=== PATIENT | female | born 1960 | race Caucasian/White ===

== ENCOUNTER 2020-07-15 01:42 | Day surgery (SDC) | payer BC, SELFPAY ==
[2020-07-09 14:39] VITALS: BMI 23.1
[2020-07-15 12:46] VITALS: BP 134/84; PULSE 84; RESP 16; TEMP 36.9; O2SAT 100
[2020-07-15] MEDS: LACTATED RINGERS 1,000 ML 150 ML IV CONT (12:54)
--- NOTE | 2020-07-15 13:20 | WPDANESEPPF ---
Anes - Initial Pre Proc Eval Procedure: Operation Date: 07/15/20 13:45 Proposed Procedures p Esophagogastroduodenoscopy - Jaylen Ramírez MD Date/Time: 07/15/20 13:20 Surgeon: Jaylen Ramírez MD Pre Op Diagnosis: epigastric pain Patient Data Age: 60 Gender: F Height: 5 ft 7 in Weight: 69.2 kg Last Vital Signs Temp 36.9 C 07/15/20 12:46 Pulse 84 07/15/20 12:46 Resp 16 07/15/20 12:46 BP 134/84 07/15/20 12:46 Pulse Ox 100 07/15/20 12:46 Allergies Allergy/AdvReac Type Severity Reaction Status Date / Time No Known Allergies Allergy Unknown Verified 07/15/20 12:44 Home Medications Medication Instructions Recorded Confirmed Type fluticasone propionate 50 2 spray NASAL DAILY #15.8 ml 11/21/19 07/15/20 Rx mcg/actuation nasal spray,suspension loratadine 10 mg tablet 10 mg PO DAILY #90 tablet 11/21/19 07/15/20 Rx hydrochlorothiazide 12.5 mg tablet 12.5 mg PO DAILY #90 tablet 05/19/20 07/15/20 Rx lisinopril 10 mg tablet 10 mg PO DAILY #90 tablet 05/19/20 07/15/20 Rx famotidine 20 mg tablet 20 mg PO DAILY 07/03/20 07/15/20 History Patient hx anesthesia problems: none Family hx anesthesia problems: none PMFSH Past Medical History Medical History Chicken pox Elevated liver enzymes Mumps Recurrent UTI Vaginal disorder Surgical History Surgical History H/O colectomy History of breast augmentation Family History Family History Father Family history of cardiovascular disease Sibling Carcinoma of colon Hypertension Patient's sister is in good health Patient's brother is in good health Mother Family history of throat cancer Family history of malignant neoplasm Social History Social History Smoking packs per day: 1 Smoking cigarettes per day: 20.0 Years smoked: 18 Smoking pack-years: 18.00 Smoking status: Former smoker Tobacco type: cigarettes Smoking end date: 06/06/90 Alcohol intake: never Substance use: never Substance use type: does not use Living arrangements: with family Spiritual care concerns: No Anes - Eval Final PreProcedure Day of Procedure 07/15/20 13:20 Patient weight: normal Heart: regular rate and rhythm Lungs: clear to auscultation Airway: Mallampati scale class II Neurological: alert and oriented Last oral intake: >/= 8 hours Emergent: no Anesthetic plan: proceed Anesthesia type and monitoring: general GIVS and standard monitoring Informed Consent: The patient's anesthetic plan and its attendant risks and benefits were discussed with the patient/family/POA. Questions were solicited and answers provided to the satisfaction of the patient/family/POA.
--- NOTE | 2020-07-15 13:46 | WPDHPUPDATE1 ---
History and Physical Update Update Date/Time: 07/15/20 13:46 History and Physical has been reviewed, including an updated exam of the patient. There are NO changes in the patient's condition. Risks, benefits, and alternatives have been discussed and questions answered. Patient agrees to proceed with procedure.
[2020-07-15 14:00] VITALS: BP 109/69; PULSE 81; RESP 18; O2SAT 99
[2020-07-15 14:10] VITALS: BP 117/69; PULSE 78; RESP 19; O2SAT 100
[2020-07-15 14:20] VITALS: BP 113/73; PULSE 68; RESP 20; O2SAT 100
== END 2020-07-15 14:57 | disposition home or self-care (01) ==
PROVIDERS: PCP Internal Medicine; Visit Provider Internal Medicine Gastroenterology
PROC: 0DJ08ZZ Inspection of Upper Intestinal Tract, Via Natural or Artificial Opening Endoscopic (ICD-10-PCS; CPT 43235; principal; 2020-07-15 13:45)
DX: R10.13 Epigastric pain (principal); K21.00 Gastro-esophageal reflux disease with esophagitis, without bleeding; K29.50 Unspecified chronic gastritis without bleeding; K44.9 Diaphragmatic hernia without obstruction or gangrene; Z80.0 Family history of malignant neoplasm of digestive organs
CPT/HCPCS: 43239; 87081; 88305; J2704; J7120

== ENCOUNTER 2020-08-06 14:57 | Outpatient (CLI) | payer BC, SELFPAY ==
--- NOTE | ~2020-08-06 | XR_ITS ---
EXAMINATION: XR chest 2V DATE: 08/06/2020 15:16 INDICATION: Midsternal chest pain TECHNIQUE: PA and lateral views of the chest were obtained. COMPARISON: None FINDINGS: The lungs are clear with no focal airspace opacities, pulmonary edema, pleural effusion or pneumothor ax. The cardiomediastinal silhouette is normal. Cholecystectomy clips in right upper quadrant. Bilate ral breast implants. Mild thoracic spondylosis. IMPRESSION: 1. No acute cardiopulmonary disease. Reviewed, dictated and finalized at location [facility]
== END 2020-08-06 14:58 | disposition home or self-care (01) ==
PROVIDERS: PCP Internal Medicine; Visit Provider Clinical Nurse Specialist
DX: R07.89 Other chest pain (principal)
CPT/HCPCS: 71046

== ENCOUNTER 2020-08-12 11:06 | Outpatient (CLI) | payer BC, SELFPAY ==
--- NOTE | 2020-08-12 11:15 | ECHO_ITS ---
Patient Info Name: Katharine Gloria Age: 60 years : 1960 Gender: Female Ht: 66 in Wt: 147 lbs BSA: 1.77 m2 HR: 83 bpm BP: 166 / 84 mmHg Heart Rhythm: Sinus Rhythm Exam Date: 08/12/2020 11:23 AM Exam Location: [facility] Patient Status: Outpatient Admit Date: 08/12/2020 Staff Ordering Physician: Shaina Lazaro Vice President Of Communications: Verito Lemus RDCS Attending Provider: Shaina Lazaro Referring Physician: Tejas BOONE; Exam Type: CA echo doppler color flow Study Info Indications R00.2 - Palpitations Complete two-dimensional, color flow and Doppler transthoracic echocardiogram is performed. Summary 1. Complete two-dimensional, color flow and Doppler transthoracic echocardiogram is performed. 2. Left ventricular chamber dimension is normal. 3. Left ventricular systolic function is normal, estimated at 65-70%. 4. The left ventricular diastolic function is normal. 5. E/e' 9 is minimally elevated. 6. No pulmonary hypertension, estimated pulmonary arterial systolic pressure is 17 mmHg. Left Ventricle E/e' 9 is minimally elevated. Left ventricular chamber dimension is normal. Left ventricular systolic function is normal, estimated at 65-70%. The left ventricular diastolic function is normal. Right Ventricle Right ventricular chamber dimension is normal. Right ventricular systolic function is normal. Left Atria Left atrial chamber dimension is normal. Right Atria Right atrial chamber dimension is normal. Aortic Valve The aortic valve is trileaflet. There is no aortic valve stenosis. There is no aortic valve regurgitation. Pulmonic Valve There is no pulmonic regurgitation. Mitral Valve There is no mitral valve stenosis. There is no mitral valve regurgitation. Tricuspid Valve There is no tricuspid valve regurgitation. No pulmonary hypertension, estimated pulmonary arterial systolic pressure is 17 mmHg. Pericardium/Pleural There is no pericardial effusion. Inferior Vena Cava Normal inferior vena cava with >50% collapse upon inspiration consistent with normal right atrial pressure, 5 mmHg. Aorta The aortic root size at the sinus of Valsalva is normal. Left Ventricular Outflow Tract Name Value Normal LVOT 2D LVOT Diameter 2.3 cm LVOT Doppler LVOT Peak Gradient 3 mmHg LVOT Mean Gradient 1 mmHg LVOT VTI 18 cm LVOT VTI/AV VTI Ratio 0.8 LVOT Stroke Volume 73 ml LVOT CO 12.4 l/min LVOT CI 7.0 l/min/m2 Pulmonic Valve Name Value Normal RVOT Doppler RVOT Peak Gradient 1 mmHg PV Doppler
== END 2020-08-12 11:07 | disposition home or self-care (01) ==
LOC: ANHCARD 11:06
PROVIDERS: Family Provider Internal Medicine; PCP Internal Medicine; Visit Provider Clinical Nurse Specialist
DX: R00.2 Palpitations (principal)
CPT/HCPCS: 93306

== ENCOUNTER 2020-08-16 14:50 | Emergency (ER) | payer BC, SELFPAY ==
--- NOTE | ~2020-08-16 | CT_ITS ---
EXAMINATION: CT abdomen pelvis w con DATE: 08/16/2020 17:17 INDICATION: Epigastric pain TECHNIQUE: Computed tomography (CT) of the abdomen and pelvis was performed with 100 cc Omnipaque 350 intravenous contrast. The dose-length product was 417.01 mGy-cm. Automated exposure control and iter ative reconstruction technique were employed. COMPARISON: CT dated 07/26/2016 FINDINGS: Lung bases are unremarkable. No significant pleural or pericardial effusion. Heart size nor mal. Status post cholecystectomy. Small hiatal hernia. There are breast implants. No significant vascular abnormality. Retroaortic left renal vein. No lymphadenopathy. Subtle subcentimeter hypodensity right hepatic lobe, most likely benign cysts. The spleen, pancreas, adrenal glands and kidneys are unremarkable. Mild lumbar spondylosis most advanced at L5-S1. No acute osseous abnormality. Nonobstructive bowel gas pattern. Colonic diverticulosis without evidence for d iverticulitis. IMPRESSION: 1. No acute abdominal abnormality. 2: Small hiatal hernia. Reviewed, dictated and finalized at location [facility]
[2020-08-16 14:54] VITALS: BP 125/74; PULSE 81; RESP 18; TEMP 36.4; O2SAT 100
[2020-08-16 15:17] LABS: Basophils Percent Auto 0.5 % (0.2-1.2); Eosinophils Percent Auto 0.4 % (0-4.4); Hemoglobin 13.1 g/dL (12.0-15.0); Immature Granulocyte Absolute 0.02 K/mm3 (0.00-0.031); Immature Granulocyte Percent A 0.2 % (0-0.5); Lymphocytes Absolute Auto 1.39 K/mm3 (0.9-3.2); Lymphocytes Percent Auto 17.2 % (18.3-44.2); Mean Corpuscular HGB Conc 34.5 g/dl (32-36); Mean Corpuscular Hemoglobin 28.5 pg (26-34); Mean Corpuscular Volume 82.6 fl (80-100); Mean Platelet Volume 9.5 fl (7.4-10.4); Monocytes Absolute Auto 0.6 K/mm3 (0.1-0.6); Monocytes Percent Auto 7.8 % (2.6-8.5); Neutrophils Percent Auto 73.9 % (45.5-73.1); Platelet Count Result 292 k/mm3 (150-375); Red Cell Distribution Width 12.5 % (11.5-14.5); White Blood Count 8.1 K/mm3 (4.5-10.0)
[2020-08-16 15:20] LABS: Add Urine Microscopic? NO; Appearance Urine Clear (Clear); Bilirubin Urine Negative (Negative); Blood Urine Negative (Negative); Color Urine Yellow (Yellow); Glucose Urine UA Negative (Negative); Ketones Urine Negative (Negative); Leukocyte Esterase Ur Negative LEU/UL (Negative); Nitrate Urine Negative (Negative); Protein Urine Negative (Negative); Specific Grav Ur 1.025 (1.001-1.035); Urobilinogen Urine Negative mg/dL (<2.0)
--- NOTE | 2020-08-16 15:27 | ED.ABDPAIN ---
HPI - Abdominal Pain General Chief Complaint: Back Pain/Injury Stated Complaint: back pain/ abd pain Time Seen by Provider: 08/16/20 15:00 Source: patient Mode of arrival: ambulatory Limitations: no limitations History of Present Illness HPI narrative: This is a 60 year old female that presents to the ER for acute on chronic abdominal pain. Reports she has been having trouble with upper abdominal pain for a couple of months. She recently saw a crime scene examiner and had an upper endoscopy which showed reflux and gastritis. She was started on omeprazole, but thought that that was making her pain worse so stopped this. She has continued to take Pepcid with little relief. Denies fever, chest pain, shortness of breath, vomiting, or dysuria. Related Data Home Medications Medication Instructions Recorded Confirmed famotidine 20 mg tablet 20 mg PO DAILY 07/03/20 07/15/20 Allergies Allergy/AdvReac Type Severity Reaction Status Date / Time No Known Allergies Allergy Unknown Verified 08/16/20 15:09 Review of Systems Review of Systems: Narrative: CONSTITUTIONAL: Denies fever CARDIOVASCULAR: Denies chest pain RESPIRATORY: Denies dyspnea. GASTROINTESTINAL: Reports abdominal pain. Denies nausea, vomiting GENITOURINARY: Denies dysuria All systems reviewed & are unremarkable except as noted in HPI and below PMFSH Past Medical History Medical History Chicken pox Elevated liver enzymes Mumps Recurrent UTI Vaginal disorder Surgical History Surgical History H/O colectomy History of breast augmentation Family History Family History Father Family history of cardiovascular disease Sibling Carcinoma of colon Hypertension Patient's sister is in good health Patient's brother is in good health Mother Family history of throat cancer Family history of malignant neoplasm Social History Social History Smoking packs per day: 1 Smoking cigarettes per day: 20.0 Years smoked: 18 Smoking pack-years: 18.00 Smoking status: Former smoker Tobacco type: cigarettes Smoking end date: 06/06/90 Alcohol intake: never Substance use: never Substance use type: does not use Gender identity (if verbalized by the patient): Female Spiritual care concerns: No Exam Narrative: Exam Narrative: GENERAL: Well-appearing, well-nourished, and in no acute distress. HEAD: Normocephalic, atraumatic. EYES: EOMI. CHEST: Clear to auscultation. No respiratory distress. No wheezes rales or rhonchi HEART: Regular rate and rhythm. No murmur heard. Normal peripheral pulses. ABDOMEN: Soft, nondistended, normal active bowel sounds. Mild tenderness to palpation epigastrium, without guarding EXTREMITIES: Normal range of motion. No edema. SKIN: Warm, dry, no rash. NEURO: No focal deficits. Alert and oriented x3. PSYCH: Normal mood and affect Course Vital Signs Vital signs: Vital Signs Temperature 97.5 F L 08/16/20 14:54 Pulse Rate 81 08/16/20 14:54 Respiratory Rate 18 08/16/20 14:54 Blood Pressure 125/74 08/16/20 14:54 Pulse Oximetry 100 08/16/20 14:54 Temperature 97.5 F L 08/16/20 17:37 Pulse Rate 61 08/16/20 18:17 Respiratory Rate 18 08/16/20 18:17 Blood Pressure 134/69 08/16/20 18:17 Pulse Oximetry 100 08/16/20 18:17 MDM - Abdominal Pain MDM Narrative Medical decision making narrative: Patient presents to the emergency department for acute on chronic abdominal pain. She is afebrile and nontoxic-appearing. Vitals are stable. CBC is without acute findings. Metabolic panel without concerning changes. Lipase is normal. UA without evidence of infection. CT scan abdomen pelvis is also without acute findings. She has a small hiatal hernia. Patient did recently have
[2020-08-16 15:30] LABS: Alanine Aminotransferase 33 U/L (4-35); Albumin Level 4.3 g/dL (3.5-5.1); Alkaline Phosphatase 58 U/L (38-126); Anion Gap 6 mmol/L (8-16); Aspartate Amino Transferase 37 U/L (14-36); Bilirubin,Total 0.6 mg/dL (0.2-1.3); Blood Urea Nitrogen 17 mg/dL (7-17); Calcium 9.5 mg/dL (8.4-10.2); Carbon Dioxide 29 mmol/L (22-30); Chloride 98 mmol/L (98-107); Estimated CRCL calculation 69 ml/min; Estimated Glomerular Filt Rate > 60; Glucose 125 mg/dL (65-105); Lipase 131 U/L (23-300); Potassium 4.1 mmol/L (3.4-5.0); Sodium 133 mmol/L (137-145)
[2020-08-16] MEDS: ONDANSETRON INJ 4 MG/2 ML VIAL IV PUSH (15:30)
[2020-08-16] MEDS: FAMOTIDINE 20 MG/2 ML VIAL IV PUSH (15:31)
[2020-08-16 16:02] VITALS: TEMP 36.4
[2020-08-16] MEDS: BELLADONNA ALK/PHENOB ELIX 10 ML, MAG HYDROX/ALUMINUM HYD/SIMETH 30 ML, LIDOCAINE HCL 2... PO (16:18)
[2020-08-16] MEDS: MORPHINE SULFATE (*CRX) 4 MG/ML INJ IV PUSH (17:07)
[2020-08-16 17:32] VITALS: BP 139/77; PULSE 76; RESP 18; O2SAT 96
[2020-08-16 17:37] VITALS: TEMP 36.4
[2020-08-16 18:17] VITALS: BP 134/69; PULSE 61; RESP 18; O2SAT 100
[2020-08-16] MEDS: SUCRALFATE 1 GM TABLET PO (20:22)
== END 2020-08-16 20:36 | disposition home or self-care (01) ==
PROVIDERS: Emergency Provider Family Medicine; PCP Internal Medicine
DX: K21.9 Gastro-esophageal reflux disease without esophagitis (principal); K21.00 Gastro-esophageal reflux disease with esophagitis, without bleeding; Z87.440 Personal history of urinary (tract) infections; Z90.49 Acquired absence of other specified parts of digestive tract; Z87.891 Personal history of nicotine dependence; K44.9 Diaphragmatic hernia without obstruction or gangrene
CPT/HCPCS: 36415; 74177; 80053; 81003; 83690; 85025; 96374; 96375; 99284; A9270; J0131; J2270; J2405; Q9967

== ENCOUNTER 2024-08-01 15:30 | Emergency (ER) | payer BC, SELFPAY ==
--- NOTE | ~2024-08-01 | CT_ITS ---
EXAMINATION: CTA chest PE protocol DATE: 08/01/2024 19:59 INDICATION: irregular hr, elevated RA pressures TECHNIQUE: Computed tomography angiography (CTA) of the chest was performed with 100 mL Omnipaque-350 intravenous contrast timed to evaluate the pulmonary arteries. Coronal maximum intensity projection 3D-reconstructions were created by the technologist. The dose-length product (DLP) was 189.17 mGy-cm. Automated exposure control and iterative reconstruction technique were employed. COMPARISON: X-ray chest, same date; CT abdomen pelvis 08/16/2020. FINDINGS: Lung parenchyma and airways: Minimal dependent atelectasis/scar. Patent airways. Small right lower lo be air cyst. Pleura: Unremarkable. Thoracic inlet, axillae and chest wall: Bilateral breast implants. Thoracic aorta: No significant dilation. No dissection. Mediastinum: Normal. Heart and pericardium: Normal. Coronary artery calcifications: Mild. Upper abdomen: Status post cholecystectomy, with likely related prominence of the common bile duct. B ilateral renal pelviectasis and caliectasis. Scattered colonic diverticuli. Bones: No acute osseous finding. Pulmonary arteries: Study quality: Adequate. No pulmonary emboli detected. IMPRESSION: No CT evidence of acute pulmonary embolus. No acute process detected in the chest. Bilateral pelviectasis and caliectasis, worse on the right, of uncertain etiology. Reviewed, dictated and finalized at location K. OMER SUPPLY CHAIN ANALYST IMPRESSION: No CT evidence of acute pulmonary embolus. No acute process detected in the chest. Bilateral pelviectasis and caliectasis, worse on the right, of uncertain etiolo gy.
--- NOTE | ~2024-08-01 | XR_ITS ---
EXAMINATION: XR chest 2V DATE: 08/01/2024 16:25 INDICATION: Palpitations. TECHNIQUE: Frontal and lateral views of the chest were obtained. COMPARISON: Chest 2 views 08/06/2020 FINDINGS: There is no pneumonia, pleural effusion, or pneumothorax. The heart size is normal. Breast implants are noted. IMPRESSION: 1. No acute cardiopulmonary disease. Reviewed, dictated and finalized at location A. [facility]
[2024-08-01 15:44] VITALS: BP 156/89; PULSE 123; RESP 18; TEMP 36.4; O2SAT 100
--- NOTE | 2024-08-01 15:48 | ED.ARRPALP ---
HPI - Arrhythmia/Palpitations General Chief Complaint: Arrhythmia/Palpitations <Agata Rankin PA-C - Last Filed: 08/02/24 10:20> Stated Complaint: my HR has spiked super high <Agata Rankin PA-C - Last Filed: 08/02/24 10:20> Time Seen by Provider: 08/01/24 15:48 <Agata Rankin PA-C - Last Filed: 08/02/24 10:20> Focused HPI: This is a 64 year old female that presents to the ER for palpitations. Reports this morning she was doing work at her computer. Reports her heart rate spiked to 150. She was not symptomatic with this. Reports her heart rate has been up and down today. Denies chest pain, shortness of breath. Reports she feels dehydrated. GENERAL: Well-appearing, well-nourished, and in no acute distress. HEAD: Normocephalic, atraumatic. CHEST: Clear to auscultation. ?No respiratory distress. HEART: Regular rate and rhythm.? NEURO: ?Alert and oriented x3. Patient screened in triage and initial orders placed.? ?Additional care and disposition to be based upon?diagnostic testing and treatment. <Agata Rankin PA-C - Last Filed: 08/02/24 10:20> History of Present Illness HPI narrative: Agree with the HPI above. Patient tells me that she has a history of anxiety and depression which is well managed and does not feel like this is related. She is a watch on that tracked her heart rate today and she reached 191 beats per minute but she was asymptomatic but did feel fluttering in her chest. No lightheadedness, syncope, chest pain or pressure. She still felt them occasionally throughout the day but not as high. Presently she is not feeling any symptoms, no chest pain, transfer, shortness of breath, nausea, vomiting, syncope or presyncope feeling. No history of DVT or PE. No recent travel, no recent surgeries. No leg swelling or calf cramping sensations. Previously were Holter monitor 20 years ago. <Shimon Motta MD - Last Filed: 08/01/24 20:54> Related Data Allergies/Adverse Reactions: Allergies Allergy/AdvReac Type Severity Reaction Status Date / Time No Known Allergies Allergy Unknown Verified 08/01/24 15:33 <Agata Rankin PA-C - Last Filed: 08/02/24 10:20> Review of Systems Review of Systems: As reviewed above in HPI <Shimon oMtta MD - Last Filed: 08/01/24 20:54> [facility] Past Medical History Medical History: Medical History LUQ pain Diarrhea Chicken pox Elevated liver enzymes Mumps Recurrent UTI Vaginal disorder <Agata Rankin PA-C - Last Filed: 08/02/24 10:20> Surgical History Surgical History: Surgical History History of cholecystectomy History of breast augmentation <SUNDAR Flores Last Filed: 08/02/24 10:20> Family History Family History: Family History Father Family history of cardiovascular disease Sibling Carcinoma of colon Hypertension Patient's sister is in good health Patient's brother is in good health Mother Family history of throat cancer Family history of malignant neoplasm <Agata Rankin PA-C - Last Filed: 08/02/24 10:20> Social History Social History: Social History Smoking packs per day: 1 Smoking cigarettes per day: 20.0 Years smoked: 18 Smoking pack-years: 18.00 Smoking status: Never smoker Tobacco type: cigarettes Smoking end date: 06/06/90 Alcohol intake: never Substance use: never Substance use type: does not use Lack of Transportation: No Lack of Food: Never True Current Housing: I Have Housing Concerned About Future Housing: No Difficulty Paying Gas/Electric Bills: No Difficulty Paying for Meds: No Currently Unemployed: No Education: High School Diploma/GED Difficulty w/ Childcare or Family Care: No Living arrangements: with family Gender identity (if verbalized by the patient): Female Spiritual care concerns: No <Agata Rankin PA-C - Last Filed: 08/02/24 10:20> Exam Narrative: GENERAL: [Well-appearing, well-nourished, and in no acute distress.] HEAD: [Normocephalic, atraumatic.] EYES: [PERRLA and EOMI.] ENT: Nares clear, no rhinorrhea or epistaxis. Mucous membranes moist. NECK: Supple. CHEST: [Clear to auscultation. No respiratory distress.] HEART: [Regular rate and rhythm]. No murmur heard. [Normal peripheral pulses.] ABDOMEN: [Soft, nondistended], [nontender], [No rigidity or guarding] EXTREMITIES: Normal range of motion. [No edema.] SKIN: Warm, dry, no rash. NEURO: [No focal deficits]. Alert and oriented [x3.] PSYCH: [Normal mood and affect.] <Shimon Motta MD - Last Filed: 08/01/24 20:54> Course Vital Signs Vital signs: Vital Signs Temperature 97.6 F 08/01/24 15:44 Pulse Rate 123 H 08/01/24 15:44 Respiratory Rate 18 08/01/24 15:44 Blood Pressure 156/89 H 08/01/24 15:44 Pulse Oximetry 100 08/01/24 15:44 Oxygen Delivery Room Air 08/01/24 15:44 Temperature 97.6 F 08/01/24 15:44 Pulse Rate 90 08/01/24 20:58 Respiratory Rate 16 08/01/24 20:58 Blood Pressure 132/79 08/01/24 20:58 Pulse Oximetry 99 08/01/24 20:58 Oxygen Delivery Room Air 08/01/24 15:44 <Agata Rankin PA-C - Last Filed: 08/02/24 10:20> Vital Signs Temperature 97.6 F 08/01/24 15:44 Pulse Rate 123 H 08/01/24 15:44 Respiratory Rate 18 08/01/24 15:44 Blood Pressure 156/89 H 08/01/24 15:44 Pulse Oximetry 100 08/01/24 15:44 Oxygen Delivery Room Air 08/01/24 15:44 Temperature 97.6 F 08/01/24 15:44 Pulse Rate 90 08/01/24 20:58 Respiratory Rate 16 08/01/24 20:58 Blood Pressure 132/79 08/01/24 20:58 Pulse Oximetry 99 08/01/24 20:58 Oxygen Delivery Room Air 08/01/24 15:44 <Shimon Motta MD - Last Filed: 08/01/24 20:54> MDM - Arrhythmia/Palpitations MDM Narrative Medical decision making narrative: 64-year-old female with a past medical history including hypertension, anxiety. She presents to the emergency department for rapid heart rate with palpitations sensations. Happened earlier today without any provoking factors, she states she might have not eat and drink and enough throughout the day yesterday and felt she may have been dehydrated but not unusual for her. She said at work and noticed her heart rate was in the 190s. Full palpitations last for several seconds. Self-limited intermittent without any intervention. Occasionally felt palpitations throughout the day. No nauseousness, vomiting, shortness a breath, dizziness, syncope, presyncope, chest pain. Presently asymptomatic. Was tachycardic in triage with a the pulse of 123 but during my examination has normal vital signs, no tachycardia, fever, hypoxia blood pressure concerns. She has strong 2+ symmetric pulses, no swelling or calf sensations of cramping. Suspicion presently is for potential electrolyte disturbances, transient paroxysmal atrial fibrillation or atrial flutter. Low suspicion ventricular dysrhythmia, low suspicion ACS or pulmonary embolism. Workup was ordered including serial troponin, EKG, chest x-ray, CBC, CMP. She will be given a L of fluid. Workup shows no leukocytosis or anemia. She is slightly hypokalemic at 3.1 which could explain her symptoms. She was given potassium 40 mEq p.o.. Normal coagulation panel, otherwise unremarkable electrolytes and normal renal function and hepatic function. Glucose at 1:41 a.m.. Negative troponin. Chest x-ray shows no acute cardiopulmonary process. EKG shows large P-waves consistent with P pulmonale and right atrial pressure enlargement. Patient is nonsmoker, no history of COPD or asthma. Some sinus tachycardia initial EKG which resolved on repeat. No ST segment changes or concerns for acute ischemic event. Given the elevated P wave consistent with potential right atrial pressure enlargement a CT scan with contrast was ordered to evaluate for any pulmonary embolism. CTA shows no pulmonary embolism, no acute process in the chest. Patient is stable hemodynamically, did not have any recurrence of her tachycardia while here in the emergency department. Will have outpatient Holter monitor ordered an outpatient cardiology evaluation follow-up instructions. She was given return precautions and safe for discharge home at this time. <Shimon Motta MD - Last Filed: 08/01/24 20:54> Medical Records Attestation: I reviewed the patient's medical records. <Shimon Motta MD - Last Filed: 08/01/24 20:54> Lab Data Attestation: I reviewed the patient's lab results. <Shimon Motta MD - Last Filed: 08/01/24 20:54> Result diagrams: 08/01/24 16:19 08/01/24 16:19 <Agata Rankin PA-C - Last Filed: 08/02/24 10:20> Labs: Lab Results 08/01/24 Range/Units 16:19 WBC 7.2 (4.5-10.0) K/mm3 RBC 5.78 H (4.2-5.4) M/mm3 Hgb 16.0 H (12.0-15.0) g/dL Hct 46.6 (37.0-47.0) % MCV 80.6 (80-100) fl MCH 27.7 (26-34) pg MCHC 34.3 (32-36) g/dl RDW 13.1 (11.5-14.5) % Plt Count 226 (150-375) k/mm3 MPV 10.6 H (7.4-10.4) fl Immature Gran % (Auto) 0.3 (0-0.5) % Neut % (Auto) 74.7 H (45.5-73.1) % Lymph % (Auto) 15.9 L (18.3-44.2) % [place] % (Auto) 8.0 (2.6-8.5) % Eos % (Auto) 0.4 (0-4.4) % Baso % (Auto) 0.7 (0.2-1.2) % Lymph # (Auto) 1.14 (0.9-3.2) K/mm3 [place] # (Auto) 0.6 (0.1-0.6) K/mm3 Eos # (Auto) 0.0 (0-0.3) K/mm3 Baso # (Auto) 0.1 (0.0-0.1) K/mm3 Abs Immat Gran (auto) 0.02 (0.00-0.031) K/mm3 Absolute Neuts (auto) 5.3 (1.3-6.7) K/mm3 Absolute Nucleated RBC 0.000 (0.0-0.012) K/mm3 Nucleated RBC % 0.0 (0.0-0.2) % PT 12.8 (11.1-14.7) Seconds INR 0.9 APTT 30.1 (22.3-36.8) Seconds Sodium 141 (137-145) mmol/L Potassium 3.1 L (3.4-5.0) mmol/L Chloride 98 (98-107) mmol/L Carbon Dioxide 27 (22-30) mmol/L Anion Gap 16 H (4-12) mmol/L BUN 15 (7-17) mg/dL Creatinine 0.55 L (0.7-1.0) mg/dL Estim Creat Clear Calc 82 ml/min Estimated GFR > 60 (59 - ) Glucose 141 H (65-110) mg/dL Calcium 10.0 (8.4-10.2) mg/dL Total Bilirubin 0.8 (0.2-1.3) mg/dL AST 53 H (14-36) U/L ALT 56 H (6-35) U/L Alkaline Phosphatase 85 (38-126) U/L Troponin I < 0.012 (0.000-0.034) ng/mL Total Protein 9.0 H (6.3-8.2) g/dL Albumin 4.8 (3.5-5.1) g/dL <Agata Rankin PA-C - Last Filed: 08/02/24 10:20> Lab Results 08/01/24 Range/Units 16:19 WBC 7.2 (4.5-10.0) K/mm3 RBC 5.78 H (4.2-5.4) M/mm3 Hgb 16.0 H (12.0-15.0) g/dL Hct 46.6 (37.0-47.0) % MCV 80.6 (80-100) fl MCH 27.7 (26-34) pg MCHC 34.3 (32-36) g/dl RDW 13.1 (11.5-14.5) % Plt Count 226 (150-375) k/mm3 MPV 10.6 H (7.4-10.4) fl Immature Gran % (Auto) 0.3 (0-0.5) % Neut % (Auto) 74.7 H (45.5-73.1) % Lymph % (Auto) 15.9 L (18.3-44.2) % [place] % (Auto) 8.0 (2.6-8.5) % Eos % (Auto) 0.4 (0-4.4) % Baso % (Auto) 0.7 (0.2-1.2) % Lymph # (Auto) 1.14 (0.9-3.2) K/mm3 [place] # (Auto) 0.6 (0.1-0.6) K/mm3 Eos # (Auto) 0.0 (0-0.3) K/mm3 Baso # (Auto) 0.1 (0.0-0.1) K/mm3 Abs Immat Gran (auto) 0.02 (0.00-0.031) K/mm3 Absolute Neuts (auto) 5.3 (1.3-6.7) K/mm3 Absolute Nucleated RBC 0.000 (0.0-0.012) K/mm3 Nucleated RBC % 0.0 (0.0-0.2) % PT 12.8 (11.1-14.7) Seconds INR 0.9 APTT 30.1 (22.3-36.8) Seconds Sodium 141 (137-145) mmol/L Potassium 3.1 L (3.4-5.0) mmol/L Chloride 98 (98-107) mmol/L Carbon Dioxide 27 (22-30) mmol/L Anion Gap 16 H (4-12) mmol/L BUN 15 (7-17) mg/dL Creatinine 0.55 L (0.7-1.0) mg/dL Estim Creat Clear Calc 82 ml/min Estimated GFR > 60 (59 - ) Glucose 141 H (65-110) mg/dL Calcium 10.0 (8.4-10.2) mg/dL Total Bilirubin 0.8 (0.2-1.3) mg/dL AST 53 H (14-36) U/L ALT 56 H (6-35) U/L Alkaline Phosphatase 85 (38-126) U/L Troponin I < 0.012 (0.000-0.034) ng/mL Total Protein 9.0 H (6.3-8.2) g/dL Albumin 4.8 (3.5-5.1) g/dL <Shimon Motta MD - Last Filed: 08/01/24 20:54> Imaging Data Attestation: I personally reviewed and interpreted this imaging study as follows: <Shimon Motta MD - Last Filed: 08/01/24 20:54> My impression: Impressions Chest X-Ray 08/01/24 16:30 IMPRESSION: 1. No acute cardiopulmonary disease. Chest CTA 08/01/24 20:02 IMPRESSION: No CT evidence of acute pulmonary embolus. No acute process detected in the chest. Bilateral pelviectasis and caliectasis, worse on the right, of uncertain etiology. <Shimon Motta MD - Last Filed: 08/01/24 20:54> Critical Care Time Critical Care Time Critical Care Time: No <Agata Rankin PA-C - Last Filed: 08/02/24 10:20> Discharge Plan Discharge Clinical Impression: Heart palpitations, Acute hypokalemia <Agata Rankin PA-C - Last Filed: 08/02/24 10:20> Patient Disposition: Home, Self-Care <Agata Rankin PA-C - Last Filed: 08/02/24 10:20> Condition: Stable <Agata Rankin PA-C - Last Filed: 08/02/24 10:20> Instructions: Antibiotic Form, Heart Palpitations (DC) <Agata Rankin PA-C - Last Filed: 08/02/24 10:20> Additional Instructions: Your cardiac workup here is very reassuring, no ongoing heart damage, CT scan shows no blood clot or any acute findings in her chest or near the heart. You do have some minor electrolyte deficiencies with a potassium of 3.1 which could be causing the palpitations symptoms as well. We will send you home with some potassium supplements and a Holter monitor prescription and Cardiology instructions for follow-up. Return with any persistent, new or worsening symptoms. <Agata Rankin PA-C - Last Filed: 08/02/24 10:20> Patient Language: Irish <Agata Rankin PA-C - Last Filed: 08/02/24 10:20> Prescriptions: New potassium chloride [Klor-Con 10] 10 mEq tablet extended release 10 meq PO DAILY Qty: 14 0RF No Action lansoprazole [Prevacid] 30 mg capsule,delayed release(DR/EC) 30 mg PO BID 30 Days Qty: 60 2RF dicyclomine 20 mg tablet 20 mg PO TID PRN (Reason: abdominal pain) 30 Days Qty: 90 2RF sumatriptan succinate [Imitrex] 25 mg tablet See Rx Instructions PO .COMPLEX Qty: 9 3RF Rx Instructions: take 1 tab at onset of headache; if no relief may repeat 1 tab after at least 2 hrs; max = 4 tabs/24 hr PO amlodipine 5 mg tablet 5 mg PO DAILY Qty: 90 1RF loratadine [Claritin] 10 mg tablet 10 mg PO DAILY Qty: 90 0RF hydrochlorothiazide 25 mg tablet 25 mg PO DAILY Qty: 90 0RF Rx Instructions: LAST REFILL, DUE FOR APPOINTMENT fluticasone propionate 50 mcg/actuation spray,suspension 2 spray NASAL DAILY Qty: 15.8 0RF Rx Instructions: administer into each nostril-NEEDS APPOINTMENT FOR FURTHER REFILLS <Agata Rankin PA-C - Last Filed: 08/02/24 10:20> Other Ambulatory Orders: [place] holter monitor 3-7 day (Routine) Timeframe: 1 Week Location: Determined by Patient Ordered By: Shimon Motta <Agata Rankin PA-C - Last Filed: 08/02/24 10:20> Follow-up/Referrals: Serena Ramos MD [Physician] - 1 Week (Palpitations) David Marmolejo DO [Primary Care Provider] - <Agata Rankin PA-C - Last Filed: 08/02/24 10:20> Time of Disposition: 20:54 <Agata Rankin PA-C - Last Filed: 08/02/24 10:20> 20:54 <Shimon Motta MD - Last Filed: 08/01/24 20:54>
--- NOTE | 2024-08-01 15:51 | ECG_ITS ---
Test Date: 2024-08-01 16:19:09 Measurements Intervals [place] Rate: 106 P: 82 [place]: 148 QRS: 13 QRSD: 93 T: 72 QT: 344 QTc: 459 Interpretive Statements SINUS TACHYCARDIA POSSIBLE LEFT ATRIAL ENLARGEMENT INCOMPLETE RIGHT BUNDLE BRANCH BLOCK CONSIDER ANTERIOR INFARCT, AGE INDETERMINATE BORDERLINE ST-T WAVE ABNORMALITY- DIFFUSE LEADS BASELINE ARTIFACT- II, III, AVL, AVF ABNORMAL ECG No previous ECG available for comparison Electronically Signed On 08-01-2024 19:05:12 FIRESTOPPER INSTALLER by Raman Moon D.O.
[2024-08-01 16:27] LABS: Basophils Absolute Auto 0.1 K/mm3 (0.0-0.1); Basophils Percent Auto 0.7 % (0.2-1.2); Eosinophils Percent Auto 0.4 % (0-4.4); Hematocrit 46.6 % (37.0-47.0); Immature Granulocyte Absolute 0.02 K/mm3 (0.00-0.031); Immature Granulocyte Percent A 0.3 % (0-0.5); Lymphocytes Absolute Auto 1.14 K/mm3 (0.9-3.2); Lymphocytes Percent Auto 15.9 % (18.3-44.2); Mean Corpuscular HGB Conc 34.3 g/dl (32-36); Mean Corpuscular Hemoglobin 27.7 pg (26-34); Mean Corpuscular Volume 80.6 fl (80-100); Mean Platelet Volume 10.6 fl (7.4-10.4); Monocytes Absolute Auto 0.6 K/mm3 (0.1-0.6); Neutrophils Absolute Auto 5.3 K/mm3 (1.3-6.7); Neutrophils Percent Auto 74.7 % (45.5-73.1); Platelet Count Result 226 k/mm3 (150-375); Red Blood Count 5.78 M/mm3 (4.2-5.4); Red Cell Distribution Width 13.1 % (11.5-14.5); White Blood Count 7.2 K/mm3 (4.5-10.0)
--- NOTE | 2024-08-01 16:29 | ECG_ITS ---
Test Date: 2024-08-01 16:34:29 Measurements Intervals [place] Rate: 88 P: 80 CT: 148 QRS: 5 QRSD: 94 T: 67 QT: 373 QTc: 452 Interpretive Statements SINUS RHYTHM BORDERLINE R WAVE PROGRESSION, ANTERIOR LEADS BORDERLINE ST-T WAVE ABNORMALITY- DIFFUSE LEADS BASELINE ARTIFACT- V4-V6 ABNORMAL ECG Compared to ECG 08/01/2024 16:19:09 HEART RATE HAS DECREASED Electronically Signed On 08-01-2024 19:02:14 GYMNASIUM TEACHER by Raman Moon D.O.
[2024-08-01 16:36] LABS: Alanine Aminotransferase 56 U/L (6-35); Albumin Level 4.8 g/dL (3.5-5.1); Alkaline Phosphatase 85 U/L (38-126); Anion Gap 16 mmol/L (4-12); Aspartate Amino Transferase 53 U/L (14-36); Bilirubin,Total 0.8 mg/dL (0.2-1.3); Blood Urea Nitrogen 15 mg/dL (7-17); Carbon Dioxide 27 mmol/L (22-30); Chloride 98 mmol/L (98-107); Estimated CRCL calculation 82 ml/min; Estimated Glomerular Filt Rate > 60; Glucose 141 mg/dL (65-110); Potassium 3.1 mmol/L (3.4-5.0); Sodium 141 mmol/L (137-145)
[2024-08-01 16:41] LABS: INR 0.9; Prothrombin Time 12.8 Seconds (11.1-14.7)
[2024-08-01 16:42] LABS: Partial Thromboplastin Time 30.1 Seconds (22.3-36.8)
--- OUTSIDE RECORDS SUMMARY | 2024-08-01 17:55 | XMS_ITS | Encounter Summary ---
Author Organization 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 Gender Identity Not on file Sexual Orientation Not on file documented as of this encounter Plan of Treatment Not on file documented as of this encounter Procedures Procedure Name Priority Date/Time Associated Diagnosis Comments SCAN - LABS 06/10/2021 documented in this encounter Results * SCAN - LABS (06/10/2021) us Provider Scanning Final Result documented in this encounter Visit Diagnoses Not on filedocumented in this encounter Care Teams Cold Molding Press Operator Relationship Specialty Start Date End Date David Marmolejo DO PCP - General Internal Medicine 01/15/21 documented as of this encounter
--- OUTSIDE RECORDS SUMMARY | 2024-08-01 17:55 | XMS_ITS | CONTINUITY OF CARE DOCUMENT ---
Author Name cecile, cecile Address Unknown Organization [facility] Address [address] [address] [place] [address] Phone [phone] Care Team Providers Care Wireless Telegrapher Name Role Phone Roxanna PORTER, Delvis Unavailable ED RALPH MD Unavailable ED RALPH MD Unavailable [phone] PROBLEMS Condition Status Date Provider Notes CHEST PAIN-TYPE TO BE DETERMINED active Carlos Mcknight MD GERD active Delvis Mcknight MD FAMILY HISTORY OF HEART DISEASE active Seun Mcknight MD HTN BORDERLINE active Delvis Mcknight MD ENCOUNTERS Date Type Provider Location Encounter Diag nosis - In-person encounter Office Visit Delvis Mcknight MD [place] [facility] CHEST PAIN-TYPE TO BE DETERMINEDGERDFAMILY HISTORY OF HEART DISEASEHTN BORDERLINE VITAL SIGNS Date Observation Value Provider Body Mass Index (Ratio) 25.27 kg/m2 Nathan Tenorio blood pressure, diastolic 71 mm[Hg] Moseley blood pressure, systolic 118 mm[Hg] Tera Tenorio pulse rate 61 /min Jose Tenorio oxygen saturation, oximetry 99 % Jose Tenorio respiratory rate E&M 16 /min Jose Tenorio weight E&M 156 [lb_av] Jose Tenorio height E&M 66 [in_i] Jose Tenorio ALLERGIES No Known Drug Allergies HISTORY OF MEDICATION USE Medication Status Instructions Dates Provider Indications Com ments OMEPRAZOLE 20 MG ORAL CAPSULE DELAYED RELEASE active 2 tabs daily 9 Jose Tenorio HYDROCHLOROTHIAZIDE 12.5 MG ORAL TABLET active 1 tab daily 9 Jose Tenorio SOCIAL HISTORY Date Observation Value Provider social history E&M Marital Statu s: L b[place] alone J ob Status: Employed full-time Delvis Mcknight MD social history reviewed E&M reviewed Delvis Mcknight MD exercise type treadmill Jose miranda physical exercise, f requency, days per week 1 /wk Jose Tenorio In the past 3 months , have you been waking up wanting to use drugs? (CAGE substance use question #4) N Jose Tenorio In the past 3 months , have you felt guilty or bad about using drugs? (CAGE substance use question #3) N Jose Tenorio In the past 3 months , has anyone annoyed you by telling you to cut down or stop using drugs? (CAGE substance use question #2) N Jose Tenorio In the past 3 months , have you felt you should cut down or stop using drugs?(CAGE substance use question #1) N Jose Tenorio alcohol use, average drinks per day <1 Jose Tenorio drug use no Delvis Madrigal passive cigarette sm gary exposure yes Jose Tenorio smoking history, tot al pack/year 40 Jose Tenorio smoking, year quit 1992 Jose hooks smoking status former smoker Jose tilley MENTAL STATUS Date Observation Value Provider assessment of judgme nt and insight E&M Alert and oriented to time, place and person. Mood and affect are normal. Delvis Mcknight MD INSURANCE PROVIDERS Payer name Policy type / Coverage type [place] red democrat ID [facility] [id number] TREATMENT PLAN Date Name Performer hsp follow up: H er updated medication list for this problem includes: Hydrochlorothiazide 12.5 Mg Tabs (Hydrochlorothiazide) ..... 1 tab daily Delvis Mcknight MD hsp follow up: H er updated medication list for this problem includes: Omeprazole 20 Mg Cpdr (Omeprazole) ..... 2 tabs daily Delvis Mcknight MD
--- OUTSIDE RECORDS SUMMARY | 2024-08-01 17:55 | XMS_ITS | Referral Summary ---
Author Organization [facility] Address [address] [place] [address] Care Team Providers Care Cement Mason Helper Name Role Phone David Marmolejo DO Primary Care Provider [phone] Allergies No known active allergies Medications lisinopriL (PRINIVIL,ZEST RIL) 10 mg tablet Take 10 mg by mouth daily 11/27/19 21 Active sucralfate (CARAFATE) 1 gram tablet TAKE 1 TABLET BY MOUTH THREE TIMES DAILY FOR GASTROINTESTINAL SPASMS OR CRAMPING 01/16/20 21 Active hydroCHLOROthi azide (HYDRODIURIL) 12.5 mg tablet Take 12.5 mg by mouth daily 11/27/19 21 Active fluticasone propionate (FLONASE) 50 mcg/actuation nasal spray 2 sprays daily 08/20/19 22 Active loratadine (Claritin) 10 mg tablet Take 10 mg by mouth daily Active famotidine (PEPCID) 20 mg tablet Take 20 mg by mouth 2 (two) times a day Activ e Active Problems Problem Noted Date Diagnosed Date Hypertension 09/29/2021 Epigastric pain 09/29/2021 History of cholecystectomy 09/29/2021 Family history of colon cancer 09/29/2021 Social History Tobacco Use Types Packs/Day Years Used Date Smoking Tobacco: Never Comments Unknown Sex and Gender Information Value Date Recorded Sex Assigned at Not on file Legal 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 Gender Identity Not on file Sexual Orientation Not on file Last Filed Vital Signs Vital Sign Reading Time Taken Comments Blood Pressure 145/75 09/29/2021 12:48 PM CDT Pulse 59 09/29/2021 12:48 PM CDT Temperature 36.3 C (97.3 F) 09/29/2021 12:48 PM CDT Respiratory Rate - - Oxygen Saturation - - Inhaled Oxygen Concentration - - Weight 62.7 kg (138 lb 3.2 oz) 09/29/2021 12:48 PM CDT Height - - Body Mass Index - - Plan of Treatment Not on file Insurance [employer] [place] Care Teams Cement Mason Helper Relationship Specialty Start Date End Date David Marmolejo DO PCP - General Internal Medicine 01/15/21
--- OUTSIDE RECORDS SUMMARY | 2024-08-01 17:55 | XMS_ITS | Clinical Summary ---
Author Organization [facility] [employer] Address [address] [place] [address] Care Team Providers Care Trout Farmer Name Role Phone Salvador Ramirez MD Primary Care Provider + [phone] Source Comments [facility],non-owned Affiliates and Associated Physician Practices is amultiple site organization consisting of ambulatory clinics and hospital sitesin [place], [place], [place] and [place]. This disclosure is being madepursuant to the Care Everywhere program and may not contain all information available regarding this patient. Last updated 18.[facility] [employer] Allergies No known active allergies Immunizations Name Administration Dates Next Due INFLUENZA VACCINE, QUADR. (F LUZONE; FLULAVAL; FLUARIX; AFLURIA QUADRIVALENT; 6MO+), 0.5 ML (IIV4) 04/18/2017 Social History Tobacco Use Types Packs/Day Years Used Date Smoking Tobacco: Never Assessed Sex and Gender Information Value Date Recorded Sex Assigned at Not on file Gender Identity Not on file Sexual Orientation Not on file Plan of Treatment Health Maintenance Due Date Last Done Comments COLOGUARD (AGES 45-75) - COL ON CA SCREENING 1960 COLON MONITORING 1960 COLONOSCOPY - COLON CA SCREENING 1960 CT COLONOGRAPHY - COLON CA SCREENING 1960 Colorectal Cancer Screening 1960 FIT - COLON CA SCREENING 1960 FLEX SIG - COLON CA SCREENING 1960 LIPID TESTING 1960 MAMMOGRAM 1960 PAP SMEAR 1960 HIV SCREENING 1975 HEPATITIS C SCREENING 03/06/1978 DTAP/TDAP/TD VACCINES (1 - Tdap) 1979 PNEUMOCOCCAL VACCINE 50+ (1 of 1 - PCV) 2010 ZOSTER VACCINE (1 of 2) 2010 COVID-19 VACCINE (1 - 2023-2 5 season) 2024 INFLUENZA VACCINE (#1) 2024 04/18/2017 DEPRESSION SCREENING 06/06/2024 Respiratory Syncytial Virus (RSV) Vaccine Pt: or over 60 yrs (1 - 1-dose 75+ series) 2035 HEPATITIS B VACCINE Aged Out No longe r eligible based on patient's age to complete this topic HIB VACCINE Aged Out No longer eligi ble based on patient's age to complete this topic HPV VACCINE Aged Out No longer eligi ble based on patient's age to complete this topic MENINGOCOCCAL (Group B) VACCINE Aged Out No longer eligible based on patient's age to complete this topic MENINGOCOCCAL VACCINE Aged Out No vianey jesus eligible based on patient's age to complete this topic PNEUMOCOCCAL VACCINE Aged Out No long er eligible based on patient's age to complete this topic Care Teams Trout Farmer Relationship Specialty Start Date End Date Salvador Ramirez MD [address] [place] [address] PCP - General 07/16/20
--- OUTSIDE RECORDS SUMMARY | 2024-08-01 17:55 | XMS_ITS | Referral Summary ---
Author Organization [facility] [employer] Address [address] [place] [address] Care Team Providers Care Assembly Loader Name Role Phone Salvador Ramirez MD Primary Care Provider + [phone] Source Comments [facility],non-owned Affiliates and Associated Physician Practices is amultiple site organization consisting of ambulatory clinics and hospital sitesin [place], [place], [place] and [place]. This disclosure is being madepursuant to the Care Everywhere program and may not contain all information available regarding this patient. Last updated 18.[facility] [employer] Allergies No known active allergies Immunizations Name [...] Orientation Not on file Plan of Treatment Not on file Care Teams Assembly Loader Relationship Specialty Start Date End Date Salvador Ramirez MD [address] [place] [address] PCP - General 07/16/20
--- OUTSIDE RECORDS SUMMARY | 2024-08-01 17:56 | XMS_ITS | Patient Health Summary ---
Author Organization [facility] Address [address] [place] [address] Care Team Providers Care Roadway Technician Name Role Phone Salvador Ramirez MD Primary Care Provider + [phone] Note from [facility],non-owned Affiliates and Associated Physician Practices is amultiple site organization consisting of ambulatory clinics and hospital sitesin [place], [place], [place] and [place]. This disclosure is being madepursuant to the Care Everywhere program and may not contain all information available regarding this patient. Last updated 18.[facility] Allergies No known active allergies Immunizations * INFLUENZA VACCINE, QUADR. (FLUZONE; FLULAVAL; FLUARIX; AFLURIA QUADRIVALENT; 6MO+), 0.5 ML (IIV4)(Given 04/18/2017) Social History Tobacco Use Types Packs/Day Years Used Date Smoking Tobacco: Never Assessed Sex and Gender Information Value Date Recorded Sex Assigned at Not on file Gender Identity Not on file Sexual Orientation Not on file Care Teams Roadway Technician Relationship Specialty Start Date End Date Salvador Ramirez MD [address] [place] [address] PCP - General 07/16/20
--- OUTSIDE RECORDS SUMMARY | 2024-08-01 17:56 | XMS_ITS | Clinical Summary ---
Author Organization [facility] Address formerly [facility] [place] [address] Care Team Providers Care Head Miller Name Role Phone David Marmolejo DO Primary Care Provider [phone] Allergies No known active allergies Medications lisinopriL [...] 09/29/2021 Family history of colon cancer 09/29/2021 Surgical History Surgery Date Site/Laterality Comments CHOLECYSTECTOMY TRANSUMBILICAL AUGMENTATION MAMMAPLASTY CYSTOSCOPY W/ URETEROSCOPY COLONOSCOPY Medical History Medical History Date Comments Heartburn Hiatal hernia HTN (hypertension) Seasonal allergies Family History Medical History Relation Name Comments Heart attack Father Hypertension Father Cancer Mother Colon cancer Sister Hypertension Sister Relation Name Status Comments Father Mother Sister Social History Tobacco Use Types Packs/Day Years Used Date Smoking Tobacco: Never Comments Unknown Sex and Gender Information Value Date Recorded Sex Assigned at Not on file 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 Gender Identity Not on file Sexual Orientation Not on file Obstetrics History Last Filed Vital Signs Vital Sign Reading [...] Mass Index - - Plan of Treatment Health Maintenance Due Date Last Done Comments Breast Cancer Screening-Mammogram 1960 Cervical Cancer Screening 1960 Colon Cancer Screening-Colonoscopy 1960 Depression Screening 1960 Hepatitis C Screening 1960 DTaP/Tdap/Td Vaccine (1 - Tdap) 1971 Hepatitis B Screening 1978 Regular Well Visit/Exam 18-64 1978 Zoster Vaccine (2 of 3) 10/12/2015 08/17/2015 Covid-19 Vaccine ( season) 2024 03/26/2021, 08/26/2020, 08/05/2020 Influenza Vaccine (#1) 2024 , 02/18/2020, 04/04/2019, Additional history exists Pneumococcal vaccine <65 Aged Out No longer eligible based on patient's age to complete this topic Insurance [place] Care Teams Head Miller Relationship Specialty Start Date End Date David Marmolejo DO PCP - General Internal Medicine 01/15/21
--- OUTSIDE RECORDS SUMMARY | 2024-08-01 17:56 | XMS_ITS | Encounter Summary ---
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 Gender Identity Not on file Sexual Orientation Not on file documented as of this encounter Plan of Treatment Not on file documented as of this encounter Procedures Procedure Name Priority Date/Time Associated Diagnosis Comments SCAN - RADIOLOGY/IMAGING 08/16/2020 documented in this encounter Results * SCAN - RADIOLOGY/IMAGING (08/16/2020) Anatomical Region Laterality Modality Other us Provider Scanning Final Result documented in this encounter Visit Diagnoses Not on filedocumented in this encounter Care Teams Backbreaker Relationship Specialty Start Date End Date David Marmolejo DO PCP - General Internal Medicine 01/15/21 documented as of this encounter
[2024-08-01 18:48] VITALS: BP 128/82; PULSE 89; RESP 20; O2SAT 99
[2024-08-01 18:56] LABS: Troponin I < 0.012 ng/mL (0.000-0.034)
--- OUTSIDE RECORDS SUMMARY | 2024-08-01 19:13 | XMS_ITS | Encounter Summary ---
Author Organization [facility] Address [address] [place] [address] Phone Care Team Providers Care House Carpenter Name Role Phone David Marmolejo DO Primary Care Provider [phone] Encounter Details Date Type Department Care Team (Late st Contact Info) Description 06/10/2021 Orders Only [facility] Scanning, Provider Social History Tobacco Use Types Packs/Day Years Used Date Smoking Tobacco: Never Assessed Comments Unknown Sex and Gender Information Value Date Recorded Sex Assigned at Not on file 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
--- OUTSIDE RECORDS SUMMARY | 2024-08-01 19:13 | XMS_ITS | Referral Summary ---
Author Organization [facility] Address [address] [place] [address] Care Team Providers Care Legal Investigator Name Role Phone David Marmolejo DO Primary Care Provider +1- [phone] Allergies No known active allergies Medications lisinopriL [...] on file Legal Sex Female 8:02 AM NURSE PARALEGAL Gender Identity Not on file Sexual [...] [place] Care Teams Legal Investigator Relationship Specialty Start Date End Date David Marmolejo DO PCP - General Internal Medicine 01/15/21
--- OUTSIDE RECORDS SUMMARY | 2024-08-01 19:13 | XMS_ITS | Clinical Summary ---
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
--- OUTSIDE RECORDS SUMMARY | 2024-08-01 19:13 | XMS_ITS | CONTINUITY OF CARE DOCUMENT ---
Author Name cecile, cecile Address Unknown Organization [facility] Address [address] [place] [address] Phone [phone] Care Team Providers Care Cardroom Plastic Card Grader Name Role Phone Roxanna PORTER, Delvis Unavailable ED RALPH MD Unavailable ED RALPH MD Unavailable [phone] PROBLEMS Condition Status Date Provider Notes CHEST PAIN-TYPE TO BE DETERMINED active Carlos Mcknight MD GERD active Delvis Mcknight MD FAMILY HISTORY OF HEART DISEASE active Seun Mcknight MD HTN BORDERLINE active Delvis Mcknight MD ENCOUNTERS Date Type Provider Location Encounter Diag nosis - In-person encounter Office Visit Delvis Mcknight MD [place] [facility] CHEST PAIN-TYPE TO BE DETERMINEDGERDFAMILY HISTORY [...] 1992 Jose hooks smoking status former smoker Jsoe tilley MENTAL STATUS Date Observation Value Provider assessment of judgme nt and insight E&M Alert and oriented to time, place and person. Mood and affect are normal. Delvis Mcknight MD INSURANCE PROVIDERS Payer name Policy type / Coverage type Russell red alliance party ID [facility] [address] [id number] TREATMENT PLAN Date Name Performer hsp follow up: H er updated medication list for this problem includes: Hydrochlorothiazide 12.5 Mg Tabs (Hydrochlorothiazide) ..... 1 tab daily Delvis Mcknight MD hsp follow up: H er updated medication list for this problem includes: Omeprazole 20 Mg Cpdr (Omeprazole) ..... 2 tabs daily Delvis Mcknight MD
--- OUTSIDE RECORDS SUMMARY | 2024-08-01 19:13 | XMS_ITS | Clinical Summary ---
Author Organization [facility] Address [address] [place] [address] Care Team Providers Care Blacking Wheel Tender Name Role Phone Salvador Ramirez MD Primary Care Provider + [phone] Source Comments [facility],non-owned Affiliates and Associated Physician Practices is amultiple site organization consisting of ambulatory clinics and hospital sitesin [place], [place], [place] and [place]. This disclosure is being madepursuant to the Care Everywhere program and may not contain all information available regarding this patient. Last updated 18.[facility] Allergies No known active allergies Immunizations Name [...] age to complete this topic Care Teams Blacking Wheel Tender Relationship Specialty Start Date End Date Salvador Ramirez MD [address] [place] [address] PCP - General 07/16/20
--- OUTSIDE RECORDS SUMMARY | 2024-08-01 19:13 | XMS_ITS | Encounter Summary ---
Author Organization [facility] Address [address] [place] [address] Phone Care Team Providers Care Early Morning Babysitter Name Role Phone David Marmolejo DO Primary Care Provider +1- [phone] Encounter Details Date Type Department Care Team (Late st Contact Info) Description 08/16/2020 Orders Only [facility] Scanning, Provider Social History Tobacco Use Types Packs/Day Years Used Date Smoking Tobacco: Never Assessed Comments Unknown Sex and Gender Information Value Date Recorded Sex Assigned at Not on file 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
--- OUTSIDE RECORDS SUMMARY | 2024-08-01 19:13 | XMS_ITS | Referral Summary ---
Author Organization [facility] Address [address] [place] [address] Care Team Providers Care Patient Portal Concierge Name Role Phone Salvador Ramirez MD Primary Care Provider + [phone] Source Comments [facility],non-owned Affiliates and Associated Physician Practices is amultiple site organization consisting of ambulatory clinics and hospital sitesin [place], [place], [place] and [place]. This disclosure is being madepursuant to the Care Everywhere program and may not contain all information available regarding this patient. Last updated 18.[facility] Allergies No known active allergies Immunizations Name [...] of Treatment Not on file Care Teams Patient Portal Concierge Relationship Specialty Start Date End Date Salvador Ramirez MD [address] [place] [address] PCP - General 07/16/20
--- OUTSIDE RECORDS SUMMARY | 2024-08-01 19:13 | XMS_ITS | Patient Health Summary ---
Author Organization [facility] Address [address] [place] [address] Care Team Providers Care Administrative Personal Assistant Name Role Phone Salvador Ramirez MD Primary Care Provider + [phone] Note from [facility],non-owned Affiliates and Associated Physician Practices is amultiple site organization consisting of ambulatory clinics and hospital sitesin [place], [place], [place] and [place]. This disclosure is being madepursuant to the Care Everywhere program and may not contain all information available regarding this patient. Last updated 18.[facility] Allergies No known active allergies Immunizations * INFLUENZA VACCINE, QUADR. (FLUZONE; FLULAVAL; FLUARIX; AFLURIA QUADRIVALENT; 6MO+), 0.5 ML (IIV4)(Given 04/18/2017) Social History Tobacco Use Types Packs/Day Years Used Date Smoking Tobacco: Never Assessed Sex and Gender Information Value Date Recorded Sex Assigned at Not on file Gender Identity Not on file Sexual Orientation Not on file Care Teams Administrative Personal Assistant Relationship Specialty Start Date End Date Salvador Ramirez MD [address] [place] [address] PCP - General 07/16/20
[2024-08-01] MEDS: LACTATED RINGERS 1,000 ML 999 ML IV CONT (20:12)
[2024-08-01] MEDS: POTASSIUM CHLORIDE 20 MEQ ER TABLET 40 MEQ PO (20:13)
[2024-08-01 20:15] VITALS: BP 138/83; PULSE 90; RESP 15; O2SAT 100
[2024-08-01 20:58] VITALS: BP 132/79; PULSE 90; RESP 16; O2SAT 99
== END 2024-08-01 21:33 | disposition home or self-care (01) ==
PROVIDERS: Physician Assistant; Emergency Provider Student in an Organized Health Care Education/Training Program; PCP Internal Medicine
DX: R00.2 Palpitations (principal); E87.6 Hypokalemia; I10 Essential (primary) hypertension; F41.9 Anxiety disorder, unspecified; F32.A Depression, unspecified; Z87.891 Personal history of nicotine dependence; Z90.49 Acquired absence of other specified parts of digestive tract; R93.5 Abnormal findings on diagnostic imaging of other abdominal regions, including retroperitoneum; R00.0 Tachycardia, unspecified; I45.10 Unspecified right bundle-branch block; R94.31 Abnormal electrocardiogram [ECG] [EKG]; Z79.899 Other long term (current) drug therapy
CPT/HCPCS: 36415; 71046; 71275; 80053; 84484; 85025; 85610; 85730; 93005; 96360; 99284; A9270; J7120; Q9967

== ENCOUNTER 2024-09-03 14:37 | Outpatient (CLI) | payer BC, SELFPAY ==
--- NOTE | 2024-09-03 14:58 | ECHO_ITS ---
Patient Info Name: Katharine Gloria Age: 64 years : 1960 Gender: Female Ht: 66 in Wt: 140 lbs BSA: 1.72 m2 HR: 72 bpm BP: 130 / 84 mmHg Technical Quality: Good Exam Date: 09/03/2024 3:02 PM Exam Location: Echo Lab Patient Status: Outpatient Admit Date: 09/03/2024 Staff Ordering Physician: Shaina Lazaro Survey Cad Technician: Neha Sommer RDCS Attending Provider: Shaina Lazaro Referring Physician: Tejas BOONE; Exam Type: CA echo doppler color flow Study Info Indications R00.2 - Palpitations Complete two-dimensional, color flow and Doppler transthoracic echocardiogram is performed. Summary 1. Complete two-dimensional, color flow and Doppler transthoracic echocardiogram is performed. 2. Left ventricular chamber dimension is normal. 3. Left ventricular systolic function is normal, estimated at 65-70%. 4. The left ventricular diastolic function is normal. 5. E/e' 7 is not elevated. 6. There is trace tricuspid valve regurgitation. Left Ventricle E/e' 7 is not elevated. Left ventricular chamber dimension is normal. Left ventricular systolic function is normal, estimated at 65-70%. The left ventricular diastolic function is normal. Right Ventricle Right ventricular systolic function is normal and with normal TAPSE 2.3 cm. Right ventricular chamber dimension is normal. Left Atria Left atrial chamber dimension is normal. Right Atria Right atrial chamber dimension is normal. Aortic Valve The aortic valve is trileaflet. There is no aortic valve stenosis. There is no aortic valve regurgitation. Pulmonic Valve There is no pulmonic regurgitation. Mitral Valve There is no mitral valve stenosis. There is no mitral valve regurgitation. Tricuspid Valve RVSP is not calculated due to an inadequate TR jet. There is trace tricuspid valve regurgitation. Pericardium/Pleural There is no pericardial effusion. Inferior Vena Cava Normal inferior vena cava with >50% collapse upon inspiration consistent with normal right atrial pressure, 5 mmHg. Aorta The aortic root size at the sinus of Valsalva is normal. Left Ventricular Outflow Tract Name Value Normal LVOT 2D LVOT Diameter 2.1 cm LVOT Doppler LVOT Peak Gradient 3 mmHg LVOT Mean Gradient 2 mmHg LVOT VTI 19 cm LVOT VTI/AV VTI Ratio 0.8 LVOT Stroke Volume 68 ml LVOT CO 12.9 l/min LVOT CI 7.5 l/min/m2 Pulmonic Valve Name Value Normal PV Doppler PV Peak Gradient 3 mmHg Mitral Valve Name Value Normal MV Doppler MV Decel [place] 415 cm/s2 MV PHT 62 ms MV Area (PHT) 3.5 cm2 4.0-5.0 MV Diastolic Function MV E Peak Velocity 89 cm/s MV A Peak Velocity 60 cm/s MV E/A 1.5 MV Decel Time 214 ms MV Annular TDI MV E/e' (Septal) 9.1 <=8.0 MV E/e' (Lateral) 7.0 <=8.0 MV E/e' (Average) 8.1 Tricuspid Valve Name Value Normal Estimated PAP/RSVP RA Pressure 5 mmHg <=5 Aorta Name Value Normal Ascending Aorta Ao Root Diameter (MM) 3.0 cm Ao Root Diam Index (MM) 1.8 cm/m2 Aortic Valve Name Value Normal AV Doppler AV Peak Velocity 97 cm/s AV Peak Gradient 4 mmHg AV Mean Gradient 3 mmHg AV VTI 24 cm AV Area (Cont Eq VTI) 2.8 cm2 >=3.0 AV Area (Cont Eq Raffy) 3.0 cm2 AV Regurgitation 2D LVOT Area 3.5 cm2 Ventricles Name Value Normal LV Dimensions 2D/MM IVS Diastolic Thickness (2D) 0.8 cm 0.6-1.0 LVID Diastole (2D) 3.8 cm 3.8-5.2 LVIW Diastolic Thickness (2D) 0.7 cm 0.6-0.9 LVID Systole (2D) 2.3 cm 2.2-3.5 LVOT Diameter 2.1 cm LV Mass (2D Cubed) 80.35 g 67.00-162.00 LV Mass Index (2D Cubed) 47 g/m2 43-95 Relative Wall Thickness (2D) 0.39 LV Fractional Shortening/Ejection Fraction 2D/MM LV Fractional Shortening (2D) 39 % 27-45 LV EF (2D Teicholz) 70 % 54-74 LV Diastolic Volume (4C MOD) 71 ml LV EF (4C MOD) 64 % LV Diastolic Volume (2C MOD) 50 ml LV EF (2C MOD) 53 % LV Diastolic Volume (BP MOD) 61 ml 46-106 LV Diastolic Volume Index (BP MOD) 35 ml/m2 29-61 LV Systolic Volume (BP MOD) 26 ml 14-42 LV Systolic Volume Index (BP MOD) 15 ml/m2 8-24 LV EF (BP MOD) 58 % 54-74 LV Diastolic Length (4C) 6.4 cm LV Systolic Length (4C) 5.5 cm LV Stroke Volume (4C MOD) 45 ml Atria Name Value Normal LA Dimensions LA Dimension (MM) 2.9 cm 2.7-3.8 Report Signatures
--- OUTSIDE RECORDS SUMMARY | 2024-09-03 16:08 | XMS_ITS | CONTINUITY OF CARE DOCUMENT ---
Author Name cecile, cecile Address Unknown Organization [facility] Address [address] [place] [address] Phone [phone] Care Team Providers Care Light Rail Train Operator Name Role Phone Roxanna PORTER, Delvis Unavailable ED RALPH MD Unavailable [phone] ED RALPH MD Unavailable [phone] PROBLEMS Condition Status Date Provider Notes CHEST PAIN-TYPE TO BE DETERMINED active Carlos Mcknight MD GERD active Delvis Mcknight MD FAMILY HISTORY OF HEART DISEASE active Seun Mcknight MD HTN BORDERLINE active Delvis Mcknight MD ENCOUNTERS Date Type Provider Location Encounter Diag nosis - In-person encounter Office Visit Delvis Mcknight MD [place] [facility] CHEST PAIN-TYPE TO BE DETERMINEDGERDFAMILY HISTORY OF HEART DISEASEHTN BORDERLINE VITAL SIGNS Date Observation Value Provider Body Mass Index (Ratio) 25.27 kg/m2 Nathan Tenorio blood pressure, diastolic 71 mm[Hg] Msoeley blood pressure, systolic 118 mm[Hg] Tera Tenorio [...] Payer name Policy type / Coverage type [place] red libertarian ID [facility] [id number] TREATMENT PLAN Date Name Performer hsp follow up: H er updated medication list for this problem includes: Hydrochlorothiazide 12.5 Mg Tabs (Hydrochlorothiazide) ..... 1 tab daily Delvis Mcknight MD hsp follow up: H er updated medication list for this problem includes: Omeprazole 20 Mg Cpdr (Omeprazole) ..... 2 tabs daily Delvis Mcknight MD
--- OUTSIDE RECORDS SUMMARY | 2024-09-03 16:08 | XMS_ITS | Clinical Summary ---
Author Organization [facility] Address [address] [place] [address] Care Team Providers Care Molded Rubber Goods Cutter Name Role Phone Salvador Ramirez MD Primary Care Provider + [phone] Source Comments [facility],non-owned Affiliates and Associated Physician Practices is amultiple site organization consisting of ambulatory clinics and hospital sitesin [place], [place], [place] and [place]. This disclosure is being madepursuant to the Care Everywhere program and may not contain all information available regarding this patient. Last updated 18.[facility] Allergies No known active allergies Immunizations Name [...] to complete this topic MENINGOCOCCAL (Group B) VACC INE SHARED DECISION-MAKING Aged Out No longer eligibl e based on patient's age to complete this topic MENINGOCOCCAL GROUPS A/C/Y/W VACCINE Aged Out No longer eligible b ased on patient's age to complete this topic PNEUMOCOCCAL VACCINE Aged Out No long er eligible based on patient's age to complete this topic Care Teams Molded Rubber Goods Cutter Relationship Specialty Start Date End Date Salvador Ramirez MD [address] [place] [address] [facility] - General 07/16/20
--- OUTSIDE RECORDS SUMMARY | 2024-09-03 16:08 | XMS_ITS | Clinical Summary ---
Author Organization [facility] Address [address] [place] [address] Care Team Providers Care Game Preserve Manager Name Role Phone David Marmolejo DO Primary Care Provider +[phone]- [phone] Allergies No known active allergies Medications lisinopriL [...] 09/29/2021 Family history of colon cancer 09/29/2021 Encounters Date Type Department Care Team Description 08/02/2024 2:30 PM ASSOCIATE MANAGER AFFILIATE MARKETING Ancillary Procedure [facility] Cardiology [address] [place] [address] Palpitations from Last 3 Months Surgical History Surgery Date Site/Laterality Comments CHOLECYSTECTOMY [...] on file Legal Sex Female 8:02 AM ASSOCIATE MANAGER AFFILIATE MARKETING Gender Identity Not on file Sexual Orientation [...] on patient's age to complete this topic Procedures Procedure Name Priority Date/Time Associated Diagnosis Comments MCT - MOBILE CARDIAC TELEMETRY EVENT MONITOR Routine 08/02/2024 2:03 PM ASSOCIATE MANAGER AFFILIATE MARKETING Palpitations from Last 3 Months Results * MCT Mobile Cardiac Telemetry Event Monitor (08/02/2024 2:03 PM ASSOCIATE MANAGER AFFILIATE MARKETING) Anatomical Region Laterality Modality Electrocardiogra phy Narrative 08/16/2024 7:53 AM CDT AMBULATORY ACETYLENE TORCH SOLDERER REPORT Patient Name: Katharine Gloria Date of : 1960 Requesting Physician: Shaina Lazaro Date of interpretation: 08/16/24 Type of monitor : 7 day cardiac event monitor Date of the study/Enrollment period: August 02, 2024 till August 08, 2024 Indication: Palpitations Quality of the study: Good Interpretation: Average heart rate was 73 beats per minute with a minimum heart rate 53 beats per minute and maximum heart rate 154 beats per minute. No evidence of atrial fibrillation or significant pauses or blocks. There was a total of 33 PVCs. Was a total of 530 supraventricular ectopic contractions. No evidence of supraventricular tachycardia, ventricular tachycardia. Patient reported symptoms on 2 occasions complaining of heart flutter and 1 episode corresponded to sinus tachycardia at heart rate 154 beats per minute and the other episode corresponded to sinus rhythm. Conclusions: Very rare PVCs and PACs. Overall unremarkable monitor Voice recognition software was used to complete this document, therefore, addressograph operator variances may occur. Beata Parekh MD, [facility] 08/16/24 Procedure Note Beata Parekh MD - 08/16/2024 AMBULATORY ACETYLENE TORCH SOLDERER REPORT Patient Name: Katharine Gloria Date of : 1960 Requesting Physician: Shaina Lazaro Date of interpretation: 08/16/24 Type of monitor : 7 day cardiac event monitor Date of the study/Enrollment period: August 02, 2024 till August Indication: Palpitations Quality of the study: Good Interpretation: Average heart rate was 73 beats per minute with a minimum heart rate 53beats per minute and maximum heart rate 154 beats per minute. No evidenceof atrial fibrillation or significant pauses or blocks. There was a totalof 33 PVCs. Was a total of 530 supraventricular ectopic contractions. Noevidence of supraventricular tachycardia, ventricular tachycardia.Patient reported symptoms on 2 occasions complaining of heart flutter and1 episode corresponded to sinus tachycardia at heart rate 154 beats perminute and the other episode corresponded to sinus rhythm. Conclusions: Very rare PVCs and PACs. Overall unremarkable monitor Voice recognition software was used to complete this document, therefore,addressograph operator variances may occur. Beata Parekh MD, [facility] 08/16/24 Shaina Lazaro PRESSING DEPARTMENT SUPERVISOR CV CARDIAC SERVICES PROCEDUR ES Final Result from Last 3 Months [place] Care Teams Game Preserve Manager Relationship Specialty Start Date End Date David Marmolejo DO PCP - General Internal Medicine 01/15/21
--- OUTSIDE RECORDS SUMMARY | 2024-09-03 16:08 | XMS_ITS | Encounter Summary ---
Author Organization [facility] [employer] [facility] Address [address] [place] [address] Phone Care Team Providers Care Caltrans Equipment Operator Name Role Phone David Marmolejo DO Primary Care Provider +[phone]- [phone] Encounter Details Date Type Department Care Team (Late st Contact Info) Description 08/16/2020 Orders Only [facility] Scanning, Provider Social History Tobacco Use Types Packs/Day Years Used Date Smoking Tobacco: Never Assessed Comments Unknown Sex and Gender Information Value Date Recorded Sex Assigned at Not on file Legal Sex Female 8:02 AM SANITARY AIDE Gender Identity Not on file Sexual Orientation [...] on filedocumented in this encounter Care Teams Caltrans Equipment Operator Relationship Specialty Start Date End Date David Marmolejo DO PCP - General Internal Medicine 01/15/21 documented as of this encounter
--- OUTSIDE RECORDS SUMMARY | 2024-09-03 16:08 | XMS_ITS | Referral Summary ---
Author Organization [facility] Address [address] [place] [address] Care Team Providers Care Clinical Data Analyst Name Role Phone David Marmolejo DO Primary Care Provider +1- [phone] Encounters Date Type Department Care Team Description 08/02/2024 2:30 PM NUTRITION COORDINATOR Ancillary Procedure [facility] Cardiology [address] [place] [address] Palpitations from Last 3 Months Allergies No known active allergies Medications lisinopriL [...] on file Legal Sex Female 8:02 AM NUTRITION COORDINATOR Gender Identity Not on file Sexual Orientation [...] - Plan of Treatment Not on file Procedures Procedure Name Priority Date/Time Associated Diagnosis Comments MCT - MOBILE CARDIAC TELEMETRY EVENT MONITOR Routine 08/02/2024 2:03 PM NUTRITION COORDINATOR Palpitations from Last 3 Months Results * MCT Mobile Cardiac Telemetry Event Monitor (08/02/2024 2:03 PM NUTRITION COORDINATOR) Anatomical Region Laterality Modality Electrocardiogra phy Narrative 08/16/2024 7:53 AM CDT AMBULATORY VEGETABLE FARMER REPORT Patient Name: Katharine Gloria Date of [...] was used to complete this document, therefore, acupuncture physician variances may occur. Beata Parekh MD, [facility] 08/16/24 Procedure Note Beata Parekh MD - 08/16/2024 AMBULATORY VEGETABLE FARMER REPORT Patient Name: Katharine Gloria Date of [...] software was used to complete this document, therefore,acupuncture physician variances may occur. Beata Parekh MD, [facility] 08/16/24 Shaina Lazaro ALARM SECURITY OR SURVEILLANCE MONITOR CV CARDIAC SERVICES PROCEDUR ES Final Result from Last 3 Months Insurance CHOICE [facility] [place] Care Teams Clinical Data Analyst Relationship Specialty Start Date End Date David Marmolejo DO PCP - General Internal Medicine 01/15/21
--- OUTSIDE RECORDS SUMMARY | 2024-09-03 16:08 | XMS_ITS | Encounter Summary ---
Author Organization [facility] [employer] [facility] Address [address] [place] [address] Phone Care Team Providers Care Textile Pin Worker Name Role Phone David Marmolejo DO Primary Care Provider +1- [phone] Encounter Details Date Type Department Care Team (Late st Contact Info) Description 06/10/2021 Orders Only [facility] Scanning, Provider Social History Tobacco Use Types Packs/Day Years Used Date Smoking Tobacco: Never Assessed Comments Unknown Sex and Gender Information Value Date Recorded Sex Assigned at Not on file Legal Sex Female 8:02 AM LICENSED CLINICAL PSYCHOLOGIST Gender Identity Not on file Sexual Orientation [...] on filedocumented in this encounter Care Teams Textile Pin Worker Relationship Specialty Start Date End Date David Marmolejo DO PCP - General Internal Medicine 01/15/21 documented as of this encounter
== END 2024-09-03 14:38 | disposition home or self-care (01) ==
PROVIDERS: Visit Provider Clinical Nurse Specialist
DX: R00.2 Palpitations (principal); R06.02 Shortness of breath
CPT/HCPCS: 93306

== ENCOUNTER 2024-11-02 12:31 | Emergency (ER) | payer BC, SELFPAY ==
--- NOTE | ~2024-11-02 | CT_ITS ---
CLINICAL INDICATION: Epigastric pain COMPARISON: 08/16/2020 and 07/26/2016. TECHNIQUE: Multiple contiguous axial images of the abdomen and pelvis were performed following the ad ministration of with 100 mL Omnipaque-350 intravenous contrast The dose-length product (DLP) was 363.27 mGy-cm. Automated exposure control and iterative reconstruction technique were employed. FINDINGS/OBSERVATIONS: Visualized lower thorax: The bilateral lung bases are clear. The heart is of normal size, without pericardial effusion. Small hiatal hernia is present. Liver: The liver demonstrates homogeneous enhancement and is not enlarged. Gallbladder and biliary system: The gallbladder is surgically absent Pancreas: The pancreas enhances homogeneously without ductal dilatation. Spleen: The spleen enhances homogeneously and is not enlarged. Kidneys: Mild right-sided hydronephrosis likely secondary to chronic UPJ obstruction. No significant hydroureter is present. The left kidney and ureter are unremarkable. Adrenal glands: Unremarkable. Gastrointestinal tract: Colonic diverticulosis without surrounding inflammatory change. Multiple loops of dilated fluid-filled small bowel are present with mural thickening and air-fluid le vels. Within the mesentery is a multilobulated spiculated mass with dense calcifications. This is increased from previous examination dated 08/16/2020. At that time, this area appeared as prominent lymph nodes only. This appearance is worrisome for smal l bowel carcinoid tumor, leading to small bowel obstruction. This finding is best visualized on axial series, images 100 through 121. Appendix: The appendix is not definitively visualized. However, no pericecal inflammatory change is identified suggest the presence of acute appendicitis. Vasculature: Unremarkable. Lymph nodes: Pathologically enlarged and morphologically suspicious lymph nodes are identified within the retroper itoneum, but more prominent at the root of the mesentery. The largest lymph node measures 20 x 12 mm and is visualized on axial series image 92. Pelvic structures: The bladder is distended, and otherwise unremarkable. The uterus is anteverted and anteflexed. Bulky calcification persists within the right ovary, unchang ed from prior. Free fluid is identified within the pelvis, likely secondary to small bowel obstruction. Body wall and musculoskeletal: Small fat-containing umbilical hernia. Degenerative disease is identified within the lumbosacral spine, most prominent at the level of L5/S1 with osteophyte formation and disc space narrowing. IMPRESSION: Findings consistent with a small bowel obstruction, and additional findings worrisome for carcinoid t umor either primary peritoneal or within the small bowel with extension into the peritoneum, as carissa led above. These findings were discussed with Dr. Weiss at the time of examination and interpretation Reviewed, dictated and finalized at location A. IMPRESSION: Findings consistent with a small bowel obstruction, and additional findings wor risome for carcinoid tumor either primary peritoneal or within the small bowel with extension into the peritoneum, as detailed above. These findings were discussed with Dr. Weiss at the time of examination and inte rpretation
--- OUTSIDE RECORDS SUMMARY | 2024-11-02 12:33 | XMS_ITS | Referral Summary ---
Author Organization [facility] Address [address] [place] [address] Care Team Providers Care Rat Culturist Name Role Phone David Marmolejo DO Primary Care Provider +1- [phone] Allergies No known active allergies Medications lisinopriL [...] on file Legal Sex Female 8:02 AM PURIFICATION SUPERVISOR Gender Identity Not on file Sexual Orientation [...] file [place] Care Teams Rat Culturist Relationship Specialty Start Date End Date David Marmolejo DO PCP - General Internal Medicine 01/15/21
--- OUTSIDE RECORDS SUMMARY | 2024-11-02 12:33 | XMS_ITS | Clinical Summary ---
Author Organization [facility] Address [address] [place] [address] Care Team Providers Care Adobe Flex Developer Name Role Phone David Marmolejo DO Primary Care Provider +1- [phone] Allergies No known active allergies Medications lisinopriL [...] on file Legal Sex Female 8:02 AM VP MARKETING Gender Identity Not on file Sexual [...] season) 2024 03/26/2021, 08/26/2020, 08/05/2020 Influenza Vaccine (Season Ended) 2025 03/12/2021, 02/18/2020, 04/04/2019, Additional history exists Pneumococcal vaccine <65 Aged Out No longer eligible based on patient's age to complete this topic [place] Care Teams Adobe Flex Developer Relationship Specialty Start Date End Date David Marmolejo DO PCP - General Internal Medicine 01/15/21
--- OUTSIDE RECORDS SUMMARY | 2024-11-02 12:33 | XMS_ITS | Clinical Summary ---
Author Organization [facility] [employer] Address [address] [place] [address] Care Team Providers Care Mercerizing Range Feeder Name Role Phone Salvador Ramirez MD Primary Care Provider + [phone] Source Comments [facility],non-owned Affiliates and Associated Physician Practices is amultiple site organization consisting of ambulatory clinics and hospital sitesin [place], [place], [place] and [place]. This disclosure is being madepursuant to the Care Everywhere program and may not contain all information available regarding this patient. Last updated 18.[facility] [employer] Allergies No known active allergies Immunizations Immunization Administration Dates Next Due INFLUENZA VACCINE, QUADR. (F LUZONE; FLULAVAL; FLUARIX; AFLURIA QUADRIVALENT; 6MO+), 0.5 ML (IIV4) 04/18/2017 Social History Tobacco Use Types Packs/Day Years Used Date Smoking Tobacco: Never Assessed Comments Unknown Sex and Gender Information Value Date Recorded Sex Assigned at Not on file Legal Sex Female 1:13 PM INSTRUMENT MAKER APPRENTICE Gender Identity Not on file Sexual [...] SCREENING 1960 LIPID TESTING 1960 MAMMOGRAM 1960 HIV SCREENING 1975 HEPATITIS C SCREENING 03/06/1978 DTAP/TDAP/TD VACCINES (1 - Tdap) 1979 PNEUMOCOCCAL VACCINE 50+ (1 of 1 - PCV) 2010 ZOSTER VACCINE (1 of 2) 2010 COVID-19 VACCINE (1 - 2023-2 5 season) 2024 DEPRESSION SCREENING 06/06/2024 INFLUENZA VACCINE (Season Ended) 2025 04/18/20 17 Respiratory Syncytial Virus (RSV) Vaccine Pt: or [...] patient's age to complete this topic Insurance [facility] Care Teams Mercerizing Range Feeder Relationship Specialty Start Date End Date Salvador Ramirez MD [address] [place] [address] PCP - General 07/16/20
--- OUTSIDE RECORDS SUMMARY | 2024-11-02 12:33 | XMS_ITS | CONTINUITY OF CARE DOCUMENT ---
Author Name cecile, cecile Address Unknown Organization [facility] Address [address] [place] [address] Phone [phone] Care Team Providers Care Medical Office Asst Name Role Phone Roxanna PORTER, Delvis Unavailable [phone] ED RALPH MD Unavailable [phone] ED RALPH MD Unavailable [phone] PROBLEMS Condition Status Date Provider Notes CHEST PAIN-TYPE TO BE DETERMINED active Carlos Mcknight MD GERD active Delvis Mcknight MD FAMILY HISTORY OF HEART DISEASE active Seun Mcknight MD HTN BORDERLINE active Delvis Mcknight MD ENCOUNTERS Date Type Provider Location Encounter Diag nosis - In-person encounter Office Visit Delvis Mcknight MD [place] Office CHEST PAIN-TYPE TO BE DETERMINEDGERDFAMILY HISTORY OF HEART DISEASEHTN BORDERLINE VITAL SIGNS Date Observation Value Provider Body Mass Index (Ratio) 25.27 kg/m2 Nathna Tenorio blood pressure, diastolic 71 mm[Hg] Moseley [...] Payer name Policy type / Coverage type [place] red alliance party ID [facility] [id number] TREATMENT PLAN Date Name Performer hsp follow up: H er updated medication list for this problem includes: Hydrochlorothiazide 12.5 Mg Tabs (Hydrochlorothiazide) ..... 1 tab daily Delvis Mcknight MD hsp follow up: H er updated medication list for this problem includes: Omeprazole 20 Mg Cpdr (Omeprazole) ..... 2 tabs daily Delvis Mcknight MD
--- OUTSIDE RECORDS SUMMARY | 2024-11-02 12:33 | XMS_ITS | Encounter Summary ---
Author Organization [facility] [employer] [facility] Address [address] [place] [address] Phone Care Team Providers Care Frame Feeder Name Role Phone David Marmolejo DO Primary Care Provider [phone]- [phone] Encounter Details Date Type Department Care Team (Late st Contact Info) Description 08/16/2020 Orders Only [facility] Scanning, Provider Social History Tobacco Use Types Packs/Day Years Used Date Smoking Tobacco: Never Assessed Comments Unknown Sex and Gender Information Value Date Recorded Sex Assigned at Not on file Legal Sex Female 8:02 AM CLEARANCE CENTER MANAGER Gender Identity Not on file Sexual Orientation [...] on filedocumented in this encounter Care Teams Frame Feeder Relationship Specialty Start Date End Date David Marmolejo DO PCP - General Internal Medicine 01/15/21 documented as of this encounter
--- OUTSIDE RECORDS SUMMARY | 2024-11-02 12:33 | XMS_ITS | Encounter Summary ---
Author Organization [facility] [employer] [facility] Address [address] [place] [address] Phone Care Team Providers Care Temple Meat Cutter Name Role Phone David Marmolejo DO Primary Care Provider [phone]- [phone] Encounter Details Date Type Department Care Team (Late st Contact Info) Description 06/10/2021 Orders Only [facility] Scanning, Provider Social History Tobacco Use Types Packs/Day Years Used Date Smoking Tobacco: Never Assessed Comments Unknown Sex and Gender Information Value Date Recorded Sex Assigned at Not on file Legal Sex Female 8:02 AM BUCKLE AND BUTTON MAKER Gender Identity Not on file Sexual Orientation [...] on filedocumented in this encounter Care Teams Temple Meat Cutter Relationship Specialty Start Date End Date David Marmolejo DO PCP - General Internal Medicine 01/15/21 documented as of this encounter
[2024-11-02 12:36] VITALS: BP 140/99; PULSE 104; RESP 16; TEMP 36.4; O2SAT 98
[2024-11-02 13:54] LABS: Basophils Absolute Auto 0.1 K/mm3 (0.0-0.1); Basophils Percent Auto 0.6 % (0.2-1.2); Eosinophils Percent Auto 0.1 % (0-4.4); Hematocrit 50.1 % (37.0-47.0); Hemoglobin 16.9 g/dL (12.0-15.0); Immature Granulocyte Absolute 0.02 K/mm3 (0.00-0.031); Immature Granulocyte Percent A 0.2 % (0-0.5); Lymphocytes Absolute Auto 1.05 K/mm3 (0.9-3.2); Lymphocytes Percent Auto 10.5 % (18.3-44.2); Mean Corpuscular HGB Conc 33.7 g/dl (32-36); Mean Corpuscular Hemoglobin 26.9 pg (26-34); Mean Corpuscular Volume 79.7 fl (80-100); Mean Platelet Volume 10.4 fl (7.4-10.4); Monocytes Absolute Auto 0.5 K/mm3 (0.1-0.6); Monocytes Percent Auto 5.1 % (2.6-8.5); Neutrophils Absolute Auto 8.3 K/mm3 (1.3-6.7); Neutrophils Percent Auto 83.5 % (45.5-73.1); Platelet Count Result 323 k/mm3 (150-375); Red Blood Count 6.29 M/mm3 (4.2-5.4); Red Cell Distribution Width 13.1 % (11.5-14.5)
[2024-11-02 14:02] LABS: Alanine Aminotransferase 83 U/L (6-35); Albumin Level 5.4 g/dL (3.5-5.1); Alkaline Phosphatase 77 U/L (38-126); Anion Gap 15 mmol/L (4-12); Aspartate Amino Transferase 81 U/L (14-36); Bilirubin,Total 0.9 mg/dL (0.2-1.3); Blood Urea Nitrogen 11 mg/dL (7-17); Calcium 10.1 mg/dL (8.4-10.2); Carbon Dioxide 28 mmol/L (22-30); Chloride 94 mmol/L (98-107); Estimated CRCL calculation 71 ml/min; Estimated Glomerular Filt Rate > 60; Glucose 127 mg/dL (65-110); Lipase 103 U/L (23-300); Potassium 3.3 mmol/L (3.4-5.0); Sodium 137 mmol/L (137-145)
--- OUTSIDE RECORDS SUMMARY | 2024-11-02 14:21 | XMS_ITS | Clinical Summary ---
Author Organization [facility] [employer] Address [address] [place] [address] Care Team Providers Care Inspector Paper Products Name Role Phone Salvador Ramirez MD Primary Care Provider + [phone] Source Comments [facility],non-owned Affiliates and Associated Physician Practices is amultiple site organization consisting of ambulatory clinics and hospital sitesin [place], [place], [place] and [place]. This disclosure is being madepursuant to the Care Everywhere program and may not contain all information available regarding this patient. Last updated 18.[facility] [employer] Allergies No known active allergies Immunizations Immunization Administration Dates Next Due INFLUENZA VACCINE, QUADR. (F LUZONE; FLULAVAL; FLUARIX; AFLURIA QUADRIVALENT; 6MO+), 0.5 ML (IIV4) 04/18/2017 Social History Tobacco Use Types Packs/Day Years Used Date Smoking Tobacco: Never Assessed Comments Unknown Sex and Gender Information Value Date Recorded Sex Assigned at Not on file Legal Sex Female 1:13 PM DIVISION ORDER ANALYST Gender Identity Not on file Sexual Orientation [...] age to complete this topic Insurance [facility] Care Teams Inspector Paper Products Relationship Specialty Start Date End Date Salvador Ramirez MD [address] [place] [address] PCP - General 07/16/20
--- OUTSIDE RECORDS SUMMARY | 2024-11-02 14:21 | XMS_ITS | Referral Summary ---
Author Organization [facility] Address [address] [place] [address] Care Team Providers Care Marketing/Sales Person Name Role Phone David Marmolejo DO Primary Care Provider +1- [phone] Allergies No known active allergies Medications lisinopriL [...] on file Legal Sex Female 8:02 AM GREASE MONKEY Gender Identity Not on file Sexual Orientation [...] [place] Care Teams Marketing/Sales Person Relationship Specialty Start Date End Date David Marmolejo DO PCP - General Internal Medicine 01/15/21
--- OUTSIDE RECORDS SUMMARY | 2024-11-02 14:21 | XMS_ITS | Encounter Summary ---
Author Organization [facility] [employer] [facility] Address [address] [place] [address] Phone Care Team Providers Care Cable Strander Name Role Phone David Marmolejo DO Primary Care Provider +1- [phone] Encounter Details Date Type Department Care Team (Late st Contact Info) Description 06/10/2021 Orders Only [facility] Scanning, Provider Social History Tobacco Use Types Packs/Day Years Used Date Smoking Tobacco: Never Assessed Comments Unknown Sex and Gender Information Value Date Recorded Sex Assigned at Not on file Legal Sex Female 8:02 AM CAP MACHINE OPERATOR Gender Identity Not on file Sexual Orientation [...] on filedocumented in this encounter Care Teams Cable Strander Relationship Specialty Start Date End Date David Marmolejo DO PCP - General Internal Medicine 01/15/21 documented as of this encounter
--- OUTSIDE RECORDS SUMMARY | 2024-11-02 14:21 | XMS_ITS | CONTINUITY OF CARE DOCUMENT ---
Author Name cecile, cecile Address Unknown Organization [facility] Address [address] [place] [address] Phone [phone] Care Team Providers Care Remnants Cutter Name Role Phone Roxanna PORTER, Delvis Unavailable [phone] ED RALPH MD Unavailable ED RALPH MD Unavailable [phone] PROBLEMS Condition Status Date Provider Notes CHEST PAIN-TYPE TO BE DETERMINED active Carlos Mcknight MD GERD active Delvis Mcknight MD FAMILY HISTORY OF HEART DISEASE active Seun Mcknight MD HTN BORDERLINE active Delvis Mcknight MD ENCOUNTERS Date Type Provider Location Encounter Diag nosis - In-person encounter Office Visit Delvis Mcknight MD [place] Office CHEST PAIN-TYPE TO BE DETERMINEDGERDFAMILY HISTORY [...] Payer name Policy type / Coverage type [place] red democrat ID [facility] [id number] TREATMENT PLAN Date Name Performer hsp follow up: H er updated medication list for this problem includes: Hydrochlorothiazide 12.5 Mg Tabs (Hydrochlorothiazide) ..... 1 tab daily Delvis Mcknight MD hsp follow up: H er updated medication list for this problem includes: Omeprazole 20 Mg Cpdr (Omeprazole) ..... 2 tabs daily Delvis Mcknight MD
--- OUTSIDE RECORDS SUMMARY | 2024-11-02 14:22 | XMS_ITS | Encounter Summary ---
Author Organization [facility] [employer] [facility] Address [address] [place] [address] Phone Care Team Providers Care Collar Pointer Name Role Phone David Marmolejo DO Primary Care Provider +1- [phone] Encounter Details Date Type Department Care Team (Late st Contact Info) Description 08/16/2020 Orders Only [facility] Scanning, Provider Social History Tobacco Use Types Packs/Day Years Used Date Smoking Tobacco: Never Assessed Comments Unknown Sex and Gender Information Value Date Recorded Sex Assigned at Not on file Legal Sex Female 8: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
--- OUTSIDE RECORDS SUMMARY | 2024-11-02 14:22 | XMS_ITS | Clinical Summary ---
Author Organization [facility] Address [address] [place] [address] Care Team Providers Care Box Turner Name Role Phone David Marmolejo DO Primary Care Provider +1- [phone] Allergies No known active allergies Medications lisinopriL [...] on file Legal Sex Female 8:02 AM COMPUTER SYSTEMS HARDWARE ANALYST Gender Identity Not on file Sexual [...] [place] Care Teams Box Turner Relationship Specialty Start Date End Date David Marmolejo DO PCP - General Internal Medicine 01/15/21
--- NOTE | 2024-11-02 14:25 | ED_ITS ---
HPI - General Adult General Chief complaint: Abdominal Pain Stated complaint: gi Time Seen by Provider: 11/02/24 13:44 History of Present Illness HPI narrative: This is a 64-year-old female with history of chronic abdominal pain presenting for epigastric pain. Since 2020 patient has intermittent episodes of sharp crampy epigastric abdominal pain that occurs 50-100 times a day for approximately 20 seconds and a crescendo pattern. She has seen multiple GI physicians for this and she is still unclear on the diagnosis although GERD and IBS have been discussed. Patient states that she now has a very strict regimen for belly she takes a handful of pills and says that is her daily regimen including dicyclomine, Tylenol and intermittently takes Protonix. She notes that she has had nausea vomiting diarrhea as well abdominal churning. She denies fevers chills chest pain difficulty breathing or urinary symptoms. Related Data Allergies Allergy/AdvReac Type Severity Reaction Status Date / Time No Known Allergies Allergy Unknown Verified 11/02/24 13:40 [facility] Past Medical History Medical History Complaint of paresthesia Screening for breast cancer Chest pressure Hospital discharge follow-up Abnormal thyroid function test Generalized headaches Alopecia LUQ pain Diarrhea Chicken pox Elevated liver enzymes Mumps Recurrent UTI Vaginal disorder Surgical History Surgical History History of cholecystectomy History of breast augmentation Family History Family History Father Family history of cardiovascular disease Sibling Carcinoma of colon Hypertension Patient's sister is in good health Patient's brother is in good health Mother Family history of throat cancer Family history of malignant neoplasm Social History Social History Smoking packs per day: 1 Smoking cigarettes per day: 20.0 Years smoked: 18 Smoking pack-years: 18.00 Smoking status: Never smoker Tobacco type: cigarettes Smoking end date: 06/06/90 Alcohol intake: never Substance use: never Substance use type: does not use Lack of Transportation: No Lack of Food: Never True Current Housing: I Have Housing Concerned About Future Housing: No Difficulty Paying Gas/Electric Bills: No Difficulty Paying for Meds: No Currently Unemployed: No Education: High School Diploma/GED Difficulty w/ Childcare or Family Care: No Living arrangements: with family Gender identity (if verbalized by the patient): Female Spiritual care concerns: No Exam 2 Narrative: APPEARANCE: No apparent distress. Head: atraumatic. EYES: EOMI, NOSE: Atraumatic NECK: Trachea midline RESPIRATORY: No increased rate of breathing CTAB CARDIOVASCULAR: RRR, no peripheral ABDOMINAL: Soft nontender no guarding rebound no CVA tenderness MUSCULOSKELETAl: No obvious deformities NEURO: Alert. Moving 4/4 extremities SKIN:: Warm, dry. Normal color PSYCHIATRIC: Normal affect Course Vital Signs Vital signs: Vital Signs Temperature 97.6 F 11/02/24 12:36 Pulse Rate 104 H 11/02/24 12:36 Respiratory Rate 16 11/02/24 12:36 Blood Pressure 140/99 H 11/02/24 12:36 Pulse Oximetry 98 11/02/24 12:36 Temperature 97.6 F 11/02/24 12:36 Pulse Rate 79 11/02/24 19:21 Respiratory Rate 15 11/02/24 19:21 Blood Pressure 125/69 11/02/24 19:21 Pulse Oximetry 98 11/02/24 19:21 Medical Decision Making MDM Narrative Medical decision making narrative: -Course: 64-year-old female chronic abdominal pain presenting for increase in her epigastric pain. CT abdomen pelvis ordered to evaluate. 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 Case was discussed with her general surgeon Dr. Smith who said the mass was too close to the base of the mesentery he be uncomfortable performing the surgery as there is high risk for vascular/aortic injury. Patient will be transferred to [facility] for further management. She is accepted under Dr. Randle. An NG tube was placed however the patient removed it due to discomfort and refused further placement. -DDX includes but is not limited to: GERD, gastritis, IBS, colitis, gastroenteritis Vital Signs Vital Signs: Vital Signs Temperature 97.6 F 11/02/24 12:36 Pulse Rate 104 H 11/02/24 12:36 Respiratory Rate 16 11/02/24 12:36 Blood Pressure 140/99 H 11/02/24 12:36 Pulse Oximetry 98 11/02/24 12:36 Temperature 97.6 F 11/02/24 12:36 Pulse Rate 79 11/02/24 19:21 Respiratory Rate 15 11/02/24 19:21 Blood Pressure 125/69 11/02/24 19:21 Pulse Oximetry 98 11/02/24 19:21 Lab Data 11/02/24 13:48 11/02/24 13:48 Labs: Lab Results 11/02/24 11/02/24 Range/Units 13:48 17:16 WBC 10.0 (4.5-10.0) K/mm3 RBC 6.29 H (4.2-5.4) M/mm3 Hgb 16.9 H (12.0-15.0) g/dL Hct 50.1 H (37.0-47.0) % MCV 79.7 L (80-100) fl MCH 26.9 (26-34) pg MCHC 33.7 (32-36) g/dl RDW 13.1 (11.5-14.5) % Plt Count 323 (150-375) k/mm3 MPV 10.4 (7.4-10.4) fl Immature Gran % (Auto) 0.2 (0-0.5) % Neut % (Auto) 83.5 H (45.5-73.1) % Lymph % (Auto) 10.5 L (18.3-44.2) % Hancock % (Auto) 5.1 (2.6-8.5) % Eos % (Auto) 0.1 (0-4.4) % Baso % (Auto) 0.6 (0.2-1.2) % Lymph # (Auto) 1.05 (0.9-3.2) K/mm3 Hancock # (Auto) 0.5 (0.1-0.6) K/mm3 Eos # (Auto) 0.0 (0-0.3) K/mm3 Baso # (Auto) 0.1 (0.0-0.1) K/mm3 Abs Immat Gran (auto) 0.02 (0.00-0.031) K/mm3 Absolute Neuts (auto) 8.3 H (1.3-6.7) K/mm3 Absolute Nucleated RBC 0.000 (0.0-0.012) K/mm3 Nucleated RBC % 0.0 (0.0-0.2) % Sodium 137 (137-145) mmol/L Potassium 3.3 L (3.4-5.0) mmol/L Chloride 94 L (98-107) mmol/L Carbon Dioxide 28 (22-30) mmol/L Anion Gap 15 H (4-12) mmol/L BUN 11 (7-17) mg/dL Creatinine 0.64 L (0.7-1.0) mg/dL Estim Creat Clear Calc 71 ml/min Estimated GFR > 60 (59 - ) Glucose 127 H (65-110) mg/dL Calcium 10.1 (8.4-10.2) mg/dL Total Bilirubin 0.9 (0.2-1.3) mg/dL AST 81 H (14-36) U/L ALT 83 H (6-35) U/L Alkaline Phosphatase 77 (38-126) U/L Total Protein 9.0 H (6.3-8.2) g/dL Albumin 5.4 H (3.5-5.1) g/dL Lipase 103 (23-300) U/L Urine Color Yellow (Yellow) Urine Appearance Clear (Clear) Urine pH 6.0 (5.0-9.0) Ur Specific Robert Lee 1.027 (1.001-1.035) Urine Protein Negative (Negative) mg/dL Urine Glucose (UA) Negative (Negative) mg/dL Urine Ketones 1+ H (Negative) mg/dL Ur Blood (Man) Negative (Negative) Urine Nitrate Negative (Negative) Urine Bilirubin Negative (Negative) Urine Urobilinogen 0.2 (<2.0) mg/dL Leukocyte Esterase Rfl Negative (Negative) EMILIANO/UL Discharge Plan Discharge Clinical Impression: Mesenteric mass, SBO (small bowel obstruction) Patient Disposition: Acute Care Hospital Condition: Stable Patient Language: Pashto Prescriptions: No Action lansoprazole [Prevacid] 30 mg capsule,delayed release(DR/EC) 30 mg PO BID 30 Days Qty: 60 2RF dicyclomine 20 mg tablet 20 mg PO TID PRN (Reason: abdominal pain) 30 Days Qty: 90 2RF loratadine [Claritin] 10 mg tablet 10 mg PO DAILY Qty: 90 0RF fluticasone propionate 50 mcg/actuation spray,suspension 2 spray NASAL DAILY Qty: 15.8 2RF Rx Instructions: administer into each nostril potassium chloride [Klor-Con 10] 10 mEq tablet extended release 10 meq PO DAILY Qty: 14 0RF amlodipine 5 mg tablet 5 mg PO DAILY Qty: 90 1RF hydrochlorothiazide 25 mg tablet 25 mg PO DAILY Qty: 90 1RF sumatriptan succinate [Imitrex] 25 mg tablet See Rx Instructions PO .COMPLEX Qty: 9 3RF Rx Instructions: take 1 tab at onset of headache; if no relief may repeat 1 tab after at least 2 hrs; max = 4 tabs/24 hr PO Follow-up/Referrals: Shaina Lazaro, HISTORY CARD CLERK-C [Primary Care Provider] -
[2024-11-02] MEDS: PANTOPRAZOLE SODIUM IV 40 MG VIAL IV PUSH (14:44)
[2024-11-02] MEDS: PROCHLORPERAZINE EDISYLATE 10 MG/2 ML VIAL IM (14:44)
[2024-11-02] MEDS: KETOROLAC 15 MG/ML VIAL (*BKC) IV PUSH (14:45)
[2024-11-02] MEDS: MAG HYDROX/AL HYDROX/SIMETH 30 ML UDC PO (14:46)
[2024-11-02 15:13] VITALS: BP 108/63; PULSE 83; RESP 18; O2SAT 99
[2024-11-02] MEDS: SODIUM CHLORIDE 0.9% IV 900 ML 999 ML IV CONT (15:54)
[2024-11-02] MEDS: SODIUM CHLORIDE 0.9% IV 1,000 ML 999 ML IV CONT (15:54)
--- NOTE | 2024-11-02 16:19 | PC.NURSE ---
Attempted to place NG tube. Pt did not tolerate. After getting NG placed pt pulled it out stating I can't do this. I don't want this.. ERP aware.
[2024-11-02] MEDS: LIDO 1%/EPINEPHRINE 1:100,000 20 ML VIAL 10 ML INFILTRATE (16:26)
[2024-11-02] MEDS: BENZOCAINE/TETRACAINE SPRAY (*SP) 56 ML AEROSOL 1 SPRAY (16:27)
[2024-11-02] MEDS: POTASSIUM CHLORIDE INJ 40 MEQ in SODIUM CHLORIDE 0.9% IV 500 ML 130 MEQ IVPB (16:34)
[2024-11-02 17:26] LABS: Add Urine Microscopic? NO; Appearance Urine Clear (Clear); Bilirubin Urine Negative (Negative); Blood Urine Negative (Negative); Color Urine Yellow (Yellow); Glucose Urine UA Negative (Negative); Ketones Urine 1+ mg/dL (Negative); Leukocyte Esterase Ur Negative LEU/UL (Negative); Nitrate Urine Negative (Negative); Protein Urine Negative (Negative); Specific Grav Ur 1.027 (1.001-1.035); Urobilinogen Urine 0.2 mg/dL (<2.0)
[2024-11-02 18:04] VITALS: BP 124/78; PULSE 92; RESP 14; O2SAT 98
[2024-11-02 19:21] VITALS: BP 125/69; PULSE 79; RESP 15; O2SAT 98
[2024-11-02 21:57] VITALS: BP 120/68; PULSE 71; RESP 14; O2SAT 99
[2024-11-02 23:13] VITALS: BP 110/64; PULSE 75; RESP 14; O2SAT 98
[2024-11-03] VITALS (46 sets, daily range): BP systolic 103–147; BP diastolic 58–79; PULSE 68–109; RESP 12–28; O2SAT 97–100
[2024-11-03] MEDS: LACTATED RINGERS 1,000 ML 100 ML IV CONT (02:03)
[2024-11-03] MEDS: ACETAMINOPHEN 500 MG TABLET 1000 MG PO (07:04)
[2024-11-03] MEDS: ONDANSETRON INJ 4 MG/2 ML VIAL IV PUSH (07:04)
== END 2024-11-03 15:07 | disposition short-term general hospital (02) ==
PROVIDERS: Emergency Medicine; Emergency Provider Emergency Medicine; PCP Clinical Nurse Specialist
DX: K56.609 Unspecified intestinal obstruction, unspecified as to partial versus complete obstruction (principal); R19.06 Epigastric swelling, mass or lump; Z87.440 Personal history of urinary (tract) infections; Z87.891 Personal history of nicotine dependence; Z90.49 Acquired absence of other specified parts of digestive tract
CPT/HCPCS: 36415; 74177; 80053; 81003; 83690; 85025; 96365; 96366; 96372; 96375; 99285; A9270; J0780; J1885; J2004; J2405; J2470; J3480; J7030; J7040; J7120; Q9967

== ENCOUNTER 2025-01-17 19:20 | Observation (INO) | payer BC, SELFPAY ==
[2025-01-17] VITALS (13 sets, daily range): BP systolic 128–146; BP diastolic 81–110; PULSE 90–192; RESP 13–24; O2SAT 99–100; BMI 19.5
--- NOTE | ~2025-01-17 | XR_ITS ---
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 RESULT: Lines, tubes, and devices: Cholecystectomy clips. Bilateral breast implants Lungs and pleura: Clear. Chronic right posterior costophrenic angle blunting. Cardiomediastinal silhouette: Stable. Other: No acute osseous or upper abdominal finding. IMPRESSION: No acute cardiopulmonary process. Reviewed, dictated and finalized at location K.
--- NOTE | ~2025-01-17 | CT_ITS ---
EXAMINATION: CTA chest PE protocol DATE: 01/17/2025 20:30 INDICATION: new SVT, hx cancer w/ mets, recent surgery TECHNIQUE: Computed tomography angiography (CTA) of the chest was performed with 100 mL Omnipaque-350 intravenous contrast timed to evaluate the pulmonary arteries. Coronal maximum intensity projection 3D-reconstructions were created by the technologist. The dose-length product (DLP) was 166.50 mGy-cm. Automated exposure control and iterative reconstruction technique were employed. COMPARISON: CTPA 08/01/2024; CT abdomen pelvis 09/19/2011. FINDINGS: Lung parenchyma and airways: Linear bibasilar scar/atelectasis. Right lower lobe air cyst. Multiple p eripheral sub-6 mm pleural-based pulmonary nodules that demonstrate long-term stability. Pleura: Unremarkable. Thoracic inlet, axillae and chest wall: Bilateral breast implants. Thoracic aorta: No significant dilation. No dissection. Mediastinum: Normal. Heart and pericardium: Normal. Coronary artery calcifications: Mild. Upper abdomen: Stable left pelviectasis/caliectasis. Status post cholecystectomy. Mildly dilated comm on bile duct, presumably secondary to cholecystectomy. Bones: No acute osseous finding. Pulmonary arteries: Study quality: Adequate. No pulmonary emboli detected. IMPRESSION: No CT evidence of acute pulmonary embolus. No acute process detected in the chest. Stable mild left pelviectasis/caliectasis. Reviewed, dictated and finalized at location K.
--- NOTE | 2025-01-17 19:22 | ECG_ITS ---
Test Date: 2025-01-17 19:27:34 Measurements Intervals Brick Rate: 198 P: 0 SD: 0 QRS: -7 QRSD: 75 T: 63 QT: 216 QTc: 392 Interpretive Statements SUPRAVENTRICULAR TACHYCARDIA, CONSIDER ATRIAL FLUTTER POSSIBLE RIGHT VENTRICULAR CONDUCTION DELAY DELAYED PRECORDIAL R/S TRANSITION BASELINE WANDER- V1-V3 ABNORMAL ECG Compared to ECG 08/01/2024 16:34:29 Sinus rhythm no longer present Electronically Signed On 01-18-2025 06:26:55 CDT by Raman Moon D.O.
--- OUTSIDE RECORDS SUMMARY | 2025-01-17 19:23 | XMS_ITS | Encounter Summary ---
Author Organization [facility] Address [address] [facility] [address] [place] [address] Phone Care Team Providers Care Show Worker Name Role Phone David Marmolejo DO Primary Care Provider [phone] Melanie Pandya [facility] Unavailable Unavailable Debra Cagle MD Unavailable [phone] Reason for Visit * Reason Onset Date Comments Spoke With Home Health Provider 01/16/2025 Encounter Details Date Type Department Care Team (Late st Contact Info) Description 01/16/2025 Telephone [facility] Surgery [address] [facility] Floor 5 [place] [address] Debra Cagle MD [address] [facility] [id number] [place] [address] Spoke With Home Health Provider Social History Tobacco Use Types Packs/Day Years Used Date Smoking Tobacco: Former Cigarettes 0.8 15 1 977 - 1991 Passive Smoke Exposure: Past [facility] Utilities Answer Date Recorded In the past 12 months has [place], gas, oil, or water [employer] threatened to shut off services in your home? No 12/28/2024 Social Connection and Isolation Panel Answer Date Recorded In a typical week, how many times do you talk on the phone with family, friends, or neighbors? More than three times a week 12/28/2024 How often do you get togethe r with friends or relatives? More than three times a week 12/28/2024 How often do you attend chur ch or protestant services? Never 12/28/2024 Do you belong to any clubs o r organizations such as mandaen groups, unions, fraternal or athletic groups, or school groups? No 12/28/2024 How often do you attend meet ings of the clubs or organizations you belong to? Never 12/28/2024 Are you , , di vorced, , never , or living with a partner? 12/28/2024 AUDIT-C Answer Date Recorded Q1: How often do you have a drink containing alc ohol? 2-4 times a month 12/21/2024 Q2: How many drinks containi ng alcohol do you have on a typical day when you are drinking? 1 or 2 12/21/2024 Q3: How often do you have si x or more drinks on one occasion? Never 12/21/2024 Overall Financial Resource Strain (CARDIA) Answe r Date Recorded How hard is it for you to pa y for the very basics like food, housing, medical care, and heating? Not hard at all 12/28/2024 PHQ-2 Answer Date Recorded PHQ-2 Total Score 0 12/28/2024 Hunger Vital Sign Answer Date Recorded Within the past 12 months, y ou worried that your food would run out before you got the money to buy more. Never true 12/29/19 Within the past 12 months, t he food you bought just didn't last and you didn't have money to get more. Never true 12/28/2024 PRAPARE - Transportation Answer Date Re corded In the past 12 months, has l ack of transportation kept you from medical appointments or from getting medications? No 12/05 In the past 12 months, has l ack of transportation kept you from meetings, work, or from getting things needed for daily living? No 12/28/2024 Housing Stability Vital Sign Answer Wyatt e Recorded In the last 12 months, was t here a time when you were not able to pay the mortgage or rent on time? No 12/28/2024 In the past 12 months, how m any times have you moved where you were living? 0 12/28/2024 At any time in the past 12 m [facility], were you homeless or living in a skilled nursing (including now)? No 12/28/2024 Personal Safety Answer Date Recorded Have you ever been in or are you currently in a harmful physical or emotional relationship or is someone making you feel afraid or unsafe? Denies 12/26/2024 Comments No Sex and Gender Information Value Date Recorded Sex Assigned at Not on file Legal Sex Female 8:02 AM [employer]EE F[employer] Gender Identity Not on file Sexual Orientation Not on file documented as of this encounter Miscellaneous Notes * Telephone Encounter - Jenelle Dailey - 01/16/2025 2:18 PM CDT Patient Query: Was an attempt to transfer to the assigned clinical staff or backline? No Reason for call?: Yue Viramontes from [facility] Home care services is calling to check the status of patient's home care [place] plan of care faxed on 01/09/2025 and 01/15/2025 .please call back Who is the caller: Yue Viramontes What is the best number for them to contact for a call back: [phone] Last office visit: Visit date not found Date of Surgery: 12/25/2024 documented in this encounter Plan of Treatment Not on file documented as of this encounter Visit Diagnoses Not on filedocumented in this encounter Care Teams Show Worker Relationship Specialty Start Date End Date David Marmolejo DO PCP - General Internal Medicine 01/15/21 Debra Cagle MD [id number] [place] [address] PCP - Home Infusion Attending General Surgery 12/19/24 Melanie Pandya, [facility] Pharmacist Pharmacy 12/18/24 documented as of this encounter
--- OUTSIDE RECORDS SUMMARY | 2025-01-17 19:23 | XMS_ITS ---
Author Organization [facility] Address [address] [place] [address] Care Team Providers Care Shipwright Apprentice Name Role Phone David Marmolejo DO Primary Care Provider [phone] Melanie Pandya [facility] Unavailable Unavailable Debra Cagle MD Unavailable [phone] Active Problems Problem Noted Date Diagnosed Date Moderate protein-calorie malnutrition 12/27/2024 Severe malnutrition 12/12/2024 Failure to thrive in adult 12/06/2024 Neuroendocrine carcinoma metastatic to liver 08/2024 Small bowel obstruction 12/06/2024 SBO (small bowel obstruction) 11/03/2024 Hypertension 09/29/2021 Epigastric pain 09/29/2021 History of cholecystectomy 09/29/2021 Family history of colon cancer 09/29/2021 Current Treatment and Therapy Plans Octreotide 28 Day Cycles - Carcinoid* Plan Start Date:01/22/2025 Plan Provider:Landon Owens MD Linked Problems Neuroendocrine carcinoma met astatic to liver (HCC) Treatment Medications Current Day (Prepa ration - Planned for 01/22/2025) Next Day (Day 1, Cycle 1 - Planned for 01/23/2025) octreotide (SandoSTATIN LAR) No medications sche duled. octreotide LAR (SandoSTATIN LAR) extended release intramuscular injection 30 mg Past Treatment and Therapy Plans No past plan information found. Lifetime Dose Tracking * Chemical Lifetime Dose Automatic Entry Manual Entr y DLP 166 mGycm 166 mGycm 0 mGycm
--- OUTSIDE RECORDS SUMMARY | 2025-01-17 19:23 | XMS_ITS | Clinical Summary ---
Author Organization [facility] Address [address] [place] [address] Care Team Providers Care Supervisor Metalizing Name Role Phone David Marmolejo DO Primary Care Provider [phone] Melanie Pandya [facility] Unavailable Unavailable Debra Cagle MD Unavailable [phone] Allergies No known active allergies Medications fluticasone propionate (FLONASE) 50 mcg/actuation nasal sprayIndications: Allergic Rhinitis 2 sprays daily as needed for rhinitis or allergies Patient states last use was over 6 months ago 022 Active loratadine (Claritin) 10 mg tabletIndications :Allergic Rhinitis Take 1 tablet (10 mg total) by mouth daily as needed for allergies Patient states last use was fall 2023 Active famotidine (PEPCID) 20 mg tabletIndications :gastroesophageal reflux disease Take 1 tablet (20 mg total) by mouth 2 (two) times a day as needed for indigestion or heartburn Patient states last dose was November 2024. Active calcium carbonate (TUMS) 500 mg (200 mg elemental calcium) chewable tablet Take 2 tablet/chew tab (1,000 mg total) by mouth 3 (three) times a day 180 tablet/carolyne w tab 025 Active Additional Information Patient taking differently:1,000 mg oral3 times daily PRN, indigestion, heartburn, Last dose November 2024, Informant: Self, Reported on 12/21/2024 prochlorperazine (COMPAZINE) 10 mg tablet Take 1 tablet (10 mg total) by mouth every 6 (six) hours as needed for nausea or vomiting (2nd line, take 30 minutes after zofran if symptoms not improved) 30 tablet Active dicyclomine (BENTYL) 10 mg capsule Take 1 capsule (10 mg total) by mouth 4 (four) times a day before meals and nightly Active lansoprazole (PREVACID) 15 mg capsule Take 2 capsules (30 mg total) by mouth daily as needed (GERD) Pt states last use was November 2024 Active TPN AT DISCHARGE Infuse IV continuously See AVS for most recent TPN formula. Active cyclobenzaprine (FLEXERIL) 5 mg tablet Take 1 tablet (5 mg total) by mouth 3 (three) times a day as needed for muscle spasms for up to 14 days 30 tablet Active senna-docusate (PERICOLACE) 8.6-50 mg Take 1 tablet by mouth nightly for 14 days 14 tablet Active multivitamin, adult, (MVI) solution injectionIndicati ons:Small bowel obstruction (HCC),Severe malnutrition Add contents of one BLUE top vial & and one WHITE top vial (10 mL total) to TPN prior to administration. Mix TPN well prior to infusing 3600 mL 01/16/20 25 11:59 PM T 025 2025 Active sodium chloride 0.9% flush syringeIndication s:Small bowel obstruction (HCC),Severe malnutrition Infuse 10 mL IV as needed for line care 38298 mL 01/16/20 25 11:59 PM T 025 2025 Active heparin 10 unit/mL syringe flush syringeIndication s:Maintain Patency of Indwelling Vascular Catheter Infuse 5 mL (50 Units total) IV as needed (line care) 55504 mL 01/16/20 25 11:59 PM T 025 2025 Active SUMAtriptan (IMITREX) 25 mg tablet Take 1 tablet (25 mg total) by mouth once as needed for migraine Patient states last dose was about 6 months ago Active omeprazole (PriLOSEC) 20 mg capsule Take 1 capsule (20 mg total) by mouth daily as needed (GERD) 013 Active gabapentin (NEURONTIN) 300 mg capsuleIndication s:Postoperative Acute Pain Take 1 capsule (300 mg total) by mouth 2 (two) times a day for 14 days 28 capsule 025 Active lidocaine (Salonpas, lidocaine,) 4 % adhesive patch,medicated Place 1 patch on the skin daily for 12 hours for 14 days 14 patch 025 Active loperamide (IMODIUM) 2 mg capsule Take 1 capsule (2 mg total) by mouth nightly as needed for diarrhea for up to 14 days 14 capsule 025 Active Adult 3-in-1 TPNIndications:Sm all bowel obstruction (HCC),Severe malnutrition Patient to add 10 mL Multivitamin to each TPN just prior to infusing. Infuse 1800 mL (1640 kCal) Daily over 12 hours by CADD pump at 150 mL/hr. 07416 mL 11 01/16/20 25 11:59 PM CDT 025 2025 Active enoxaparin (LOVENOX) 40 mg/0.4 mL syringeIndication s:Deep Vein Thrombosis Prevention Inject 0.4 mL (40 mg total) under the skin daily for 28 days 11.2 mL 025 2024 Active loperamide (IMODIUM) 2 mg capsule Take 1 capsule (2 mg total) by mouth 4 (four) times a day as needed for diarrhea for up to 14 days 30 capsule Active oxyCODONE (ROXICODONE) 10 mg tabletIndications :Pain Take 1 tablet (10 mg total) by mouth every 4 (four) hours as needed for pain for up to 20 doses 20 tablet 025 Active octreotide (SandoSTATIN) 100 mcg/mL injection Inject 1 mL (100 mcg total) under the skin 3 (three) times a day for 3 minutes for 14 days 42 mL 025 2024 Active ondansetron ODT (ZOFRAN-ODT) 4 mg disintegrating tablet Take 1 tablet (4 mg total) by mouth every 8 (eight) hours as needed for nausea 20 tablet 025 Active lisinopriL (PRINIVIL,ZESTRIL ) 10 mg tabletIndications :hypertension Take 1 tablet (10 mg total) by mouth daily 021 2024 Discontinued(T herapy completed) sucralfate (CARAFATE) 1 gram tablet Take 1 tablet (1 g total) by mouth 021 2024 Discontinued(T herapy completed) ondansetron ODT (ZOFRAN-ODT) 4 mg disintegrating tablet Take 1 tablet (4 mg total) by mouth every 8 (eight) hours as needed for nausea 20 tablet 2024 Discontinued(R eorder) acetaminophen (TYLENOL) 325 mg tabletIndications :Fever,Pain Take 2 tablets (650 mg total) by mouth every 4 (four) hours as needed for pain for up to 14 days 30 tablet 2024 cholecalciferol (VITAMIN D-3) 400 unit capsule Take 1 tablet/capsule (400 Units total) by mouth daily 30 tablet/cap silver 2024 Discontinued(T herapy completed) Adult 3-in-1 TPNIndications:Sm all bowel obstruction (HCC),Severe malnutrition Patient to add 10 mL Multivitamin to each TPN just prior to infusing. Infuse 1800 mL (1640 kCal) Daily over 12 hours by CADD pump at 150 mL/hr. 57651 mL 11 12/20/19 25 3:16 PM CDT 2024 Discontinued(R eorder) oxyCODONE (ROXICODONE) 15 mg immediate release tabletIndications :Pain Take 0.5 tablets (7.5 mg total) by mouth every 4 (four) hours as needed for pain (pain not controlled by other medicines. Take stool softeners to prevent constipation.) for up to 7 days 21 tablet 2024 Discontinued(S top Taking at Discharge) menthol-zinc oxide 0.44-20.6 % ointment Apply topically 4 (four) times a day as needed (irritation) for up to 14 days 71 g 025 2024 octreotide (SandoSTATIN) 100 mcg/mL injection Inject 1 mL (100 mcg total) under the skin 3 (three) times a day for 3 minutes for 14 days 42 mL 025 2024 Discontinued Active Problems Problem Noted Date Diagnosed Date Moderate protein-calorie malnutrition 12/27/2024 Severe malnutrition 12/12/2024 Failure to thrive in adult 12/06/2024 Neuroendocrine carcinoma metastatic to liver 08/2024 Small bowel obstruction 12/06/2024 SBO (small bowel obstruction) 11/03/2024 Hypertension 09/29/2021 Epigastric pain 09/29/2021 History of cholecystectomy 09/29/2021 Family history of colon cancer 09/29/2021 Encounters Date Type Department Care Team Description 01/16/2025 Telephone [facility] Surgery [facility] Floor [address] [place] [address] Derba Cagle MD Spoke With Home Health Provider 01/14/2025 Documentation [facility] Surgery [address] [facility] [address] [place] [address] Ilene Wright PA 01/14/2025 Orders Only [facility] Surgery [address] [place] [address] [address] [place] [address] Calvillo Ann Samra-Corinean, DNP 01/14/2025 Home Infusion [facility] Home Infusion Therapy [address] [place] [address] Brittney Mcwilliams, [facility] 01/14/2025 Documentation [facility] Surgery [address] [facility] [address] [place] [address] Calvillo, Ann Samra-Loan, DNP 01/08/2025 Orders Only [facility] Surgeon [address] [place] [address] Calvillo, Ann Samra-Loan, DNP 01/08/2025 Orders Only [facility] Surgeon 1 [place] [address] Calvillo, Ann Samra-Loan, DNP 01/07/2025 Documentation [facility] Oncology [address] [facility] 5 [place] [address] Calvillo, Ann Samra-Loan, DNP 01/07/2025 Home Infusion [facility] [address] [place] [address] Brittney Mcwilliams, [facility] 01/07/2025 Telephone [facility] Surgery [address] [facility] [address] [place] [address] Karli Ann Scooby, TITA 01/07/2025 Telephone [facility] Surgery [facility] Floor [address] [place] [address] Debra Cagle MD New Parameters 01/07/2025 Telephone [facility] Surgery [address] [facility] Floor 8 [place] [address] Debra Cagle MD 01/02/2025 Plan of Care Documentation [facility] [address] [place] [address] 12/25/2024 10:05 AM CDT - 12/25/2024 2:35 PM CDT Surgery [facility] Operating Room [address] [place] [address] Debra Cagle MD ILEOCOLIC RESECTION AND OMENTECTOMY WITH TAP BLOCK 12/25/2024 9:11 AM CDT Anesthesia Event [facility] Operating Room [address] [place] [address] Te Wilson MD Conners, Jamie 12/25/2024 7:40 AM CDT - 01/02/2025 11:26 AM CDT Hospital Encounter [address] [address] Debra Cagle MD 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); Small bowel obstruction (HCC) Discharge Disposition: Discharge to [facility] 12/21/2024 1:00 PM CDT Pre-Admission Testing [facility] Center for Preoperative Assessment and Planning [facility] [address] [place] [id number] Preoperative testing (Primary Dx) 12/21/2024 Home Infusion [facility] [address] [place] [address] Adriana Escalona Small bowel obstruction (HCC); Severe malnutrition (CMS/HCC) 12/18/2024 Plan of Care Documentation [facility] Home Infusion Therapy [address] [place] [address] 12/18/2024 Home Infusion [facility] Home Infusion Therapy [address] [place] [address] Melanie Pandya, [facility] Small bowel obstruction (HCC) (Primary Dx); Severe malnutrition (CMS/HCC) 12/18/2024 Results Follow-Up [facility] [address] [facility] 3rd Floor [address] [place] [address] Ana Herron MD Pap and High Risk HPV and Genotyping (Cytology Component) 12/11/2024 10:44 AM CDT - 12/19/2024 11:11 AM CDT Hospital Encounter [address] [address] Debra Cagle MD 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) (Primary Dx); Illness, unspecified Discharge Disposition: Discharge to home, home health skilled care 12/06/2024 6:13 PM CDT - 12/06/2024 11:59 PM CDT Hospital Encounter [facility] [address] [place] [address] Well woman exam Discharge Disposition: Discharge to home or self care 12/06/2024 12:30 PM CDT Office Visit Obstetrics and Gynecology Clinic [facility] 3rd Floor [address] [place] [address] Ana Herron MD Well woman exam (Primary Dx) 12/06/2024 Documentation [facility] Department of Hepatobiliary, Pancreatic, & Gastrointestinal Surgery [address] [facility] 12th Floor, [place] [address] Suzette Hunt NP 12/06/2024 Orders Only [facility] Department of Hepatobiliary, Pancreatic, & Gastrointestinal Surgery [address] [facility] 12th Floor, [place] [address] Suzette Hunt NP SBO (small bowel obstruction) (HCC) (Primary Dx); Failure to thrive in adult 12/05/2024 4:00 PM CDT Lab [facility] - Lab Collection [address] [facility] [address] [place] [address] 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); SBO (small bowel obstruction) (HCC) 12/05/2024 2:30 PM CDT Office Visit [facility] Surgery [address] [place] [address] Floor 6 [place] [address] Debra Cagle MD 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) (Primary Dx) 12/05/2024 Documentation [facility] Nutrition Counseling 1 [place] [address] Isac Du, RD 12/05/2024 Documentation [facility] Nutrition Counseling 1 [place] [address] Isac Du, OSMEL 12/04/2024 9:18 AM CDT - 12/04/2024 11:59 PM CDT Hospital Encounter [facility] [place] - [facility] [address] [facility] Floor 8 [place] [address] Discharge Disposition: Discharge to home or self care 12/04/2024 9:17 AM CDT - 12/04/2024 11:59 PM CDT Hospital Encounter 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) 11/21/2024 Orders Only [facility] Surgery [address] [facility] [address] [place] [address] Karmen Kelley CMA SBO (small bowel obstruction) (HCC) (Primary Dx) 11/21/2024 Results Follow-Up [facility] Surgeon [address] [place] [address] Debra Cagle MD Surgical pathology 11/16/2024 9:54 AM CDT - 11/16/2024 11:59 PM CDT Hospital Encounter [facility] Radiology 1 [place] [address] Epigastric pain Discharge Disposition: Discharge to home or self care 11/14/2024 Documentation [facility] Department of Hepatobiliary, Pancreatic, & Gastrointestinal Surgery [address] [facility] Medicine 12th Floor, [place] [address] Suzette Hunt NP 11/10/2024 Telephone [facility] Surgeon [address] [place] [address] Ciaran Navarro MD 11/06/2024 Orders Only [facility] Department of Hepatobiliary, Pancreatic, & Gastrointestinal Surgery [address] [facility] 12th Floor, [place] [address] Suzette Hunt NP Epigastric pain (Primary Dx) 11/05/2024 Telephone Radiology 1 [place] [address] Tri Ramirez MD 11/03/2024 3:44 PM CDT - 11/06/2024 1:26 PM CDT Hospital Encounter [address] [address] Debra Cagle MD Diagnosis unknown (Primary Dx) Discharge Disposition: Discharge to home or self care from Last 3 Months Surgical History Surgery Date Site/Laterality Comments CHOLECYSTECTOMY 06/06/1991 - 06/05/1992 CYSTOSCOPY W/ URETEROSCOPY COLONOSCOPY US GUIDED BIOPSY ABDOMEN RETROPERITONEAL 11/16/2024 N/A TONSILLECTOMY 06/06/1965 - 06/05/1966 BREAST SURGERY 06/06/1997 - 06/05/1998 Bilateral breast implants PERIPHERALLY INSERTED CENTRA L CATHETER INSERTION 12/04/2024 - 01/03/2025 Medical History Medical History Date Comments Heartburn Hiatal hernia HTN (hypertension) Seasonal allergies Neuroendocrine cancer (HCC) Family History Medical History Relation Name Comments Heart attack Father Hypertension Father Cancer Mother Anesthesia problems Sister Colon cancer Sister Hypertension Sister Relation Name Status Comments Father [place]'s 1st 40s; d ied of [place] age 53 Mother Sister PONV Social History Tobacco Use Types Packs/Day Years Used Date Smoking Tobacco: Former Cigarettes 0.8 15 1 977 - 1991 Passive Smoke Exposure: Past Tobacco Cessation:Counseling Given: Not Answered [facility] Utilities Answer Date Recorded In the past 12 months has [employer], gas, oil, or water company threatened to shut off services in your [...] often do you attend chur ch or pentecostal services? Never 12/28/2024 Do you belong to any clubs o r organizations such as hinduism groups, unions, fraternal or athletic groups, or [...] any time in the past 12 m [facility], were you homeless or living in a halfway (including now)? No 12/28/2024 Personal Safety Answer Date Recorded Have you ever been in or are you currently in a harmful physical or emotional relationship or is someone making you feel afraid or unsafe? 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 Gender Identity Not on file Sexual Orientation Not on file Obstetrics History Para Term AB IAB SAB Ectopic Multiple Livin g Live Births 4 4 3 1 3 Date Outcome GA Total Labor Labor/2nd/3rd Weight Sex Type Anes PTL Idania A1 A5 Name Clin Term Term Term Last Filed Vital Signs Vital Sign Reading Time Taken Comments Blood Pressure 107/68 01/02/2025 8:30 AM CDT Pulse 110 01/02/2025 8:30 AM CDT Temperature 36.6 C (97.9 F) 01/02/2025 8:30 AM CDT Respiratory Rate 16 01/02/2025 8:30 AM CDT Oxygen Saturation 97% 01/02/2025 8:30 AM CDT Inhaled Oxygen Concentration - - Weight 54.1 kg (119 lb 4.8 oz) 01/02/2025 3:46 A M CDT Height 167.6 cm (5' 6) 12/25/2024 7:44 PM CDT Body Mass Index 19.26 12/25/2024 7:44 PM CDT Plan of Treatment Health Maintenance Due Date Last Done Comments Breast Cancer Screening-Mammogram 1960 Colon Cancer Screening-Colonoscopy 1960 Hepatitis C Screening 1960 DTaP/Tdap/Td Vaccine (1 - Tdap) 1971 Hepatitis B Screening 1978 Pneumococcal vaccine <65 (1 of 2 - PCV) 1979 Zoster Vaccine (1 of 2) 10/12/2015 08/17/2015 Covid-19 Vaccine (4 - 2023-2 5 season) 2024 03/26/2021, 08/26/2020, 08/05/2020 Influenza Vaccine (#1) 2025 , 02/18/2020, 04/04/2019, Additional history exists Cervical Cancer Screening 12/06/2025 12/06/2024, 08/2024 Depression Screening 12/06/2025 12/06/2024 Regular Well Visit/Exam 18-64 12/06/2025 12/06/2024 Procedures Procedure Name Priority Date/Time Associated Diagnosis Comments MAGNESIUM Routine 01/01/2025 10:14 PM CDT PHOSPHORUS Routine 01/01/2025 10:14 PM CDT EGFR Routine 01/01/2025 10:14 PM CDT COMPREHENSIVE METABOLIC PANEL Routine 01/01/2025 10:14 PM CDT CBC WITHOUT DIFFERENTIAL Timed 01/01/2025 10:14 PM CDT COMPREHENSIVE METABOLIC PANEL Timed 12/31/2024 9:20 PM CDT EGFR Timed 12/31/2024 9:20 PM CDT PHOSPHORUS Timed 12/31/2024 9:20 PM CDT MAGNESIUM Timed 12/31/2024 9:20 PM CDT CBC WITHOUT DIFFERENTIAL Timed 12/31/2024 9:20 PM CDT EGFR Timed 12/31/2024 5:11 AM CDT PHOSPHORUS Timed 12/31/2024 5:11 AM CDT MAGNESIUM Timed 12/31/2024 5:11 AM CDT COMPREHENSIVE METABOLIC PANEL Timed 12/31/2024 5:11 AM CDT CBC WITHOUT DIFFERENTIAL Timed 12/31/2024 5:11 AM CDT COMPREHENSIVE METABOLIC PANEL Timed 12/30/2024 11:09 PM CDT EGFR Timed 12/30/2024 11:09 PM CDT CRITICAL RESULT CALLBACK CHEMISTRY Timed 12/30/2024 11:09 PM CDT PHOSPHORUS Timed 12/30/2024 11:09 PM CDT MAGNESIUM Timed 12/30/2024 11:09 PM CDT CBC WITHOUT DIFFERENTIAL Timed 12/30/2024 11:09 PM CDT INFECTION PREVENTION VRE CULTURE Routine 12/30/2024 6:47 AM CDT C. DIFFICILE TESTING Routine 12/30/2024 6:43 AM CDT EGFR Routine 12/29/2024 8:32 PM CDT COMPREHENSIVE METABOLIC PANEL Routine 12/29/2024 8:32 PM CDT PHOSPHORUS Timed 12/29/2024 8:32 PM CDT MAGNESIUM Timed 12/29/2024 8:32 PM CDT CBC WITHOUT DIFFERENTIAL Timed 12/29/2024 8:32 PM CDT COMPREHENSIVE METABOLIC PANEL Timed 12/28/2024 8:04 PM CDT EGFR Timed 12/28/2024 8:04 PM CDT PHOSPHORUS Timed 12/28/2024 8:04 PM CDT MAGNESIUM Timed 12/28/2024 8:04 PM CDT CBC WITHOUT DIFFERENTIAL Timed 12/28/2024 8:04 PM CDT HEPATIC FUNCTION PANEL Timed 6:04 AM CDT EGFR Timed 12/27/2024 8:22 PM CDT PHOSPHORUS Timed 12/27/2024 8:22 PM CDT MAGNESIUM Timed 12/27/2024 8:22 PM CDT BASIC METABOLIC PANEL Timed 12/27/2024 8:22 PM CDT CBC WITHOUT DIFFERENTIAL Timed 12/27/2024 8:22 PM CDT IRON PROFILE W/ IBC Routine 12/27/2024 10:37 AM CDT ECG 12-LEAD Routine 12/27/2024 10:36 AM CDT EGFR Timed 12/26/2024 8:50 PM CDT PHOSPHORUS Timed 12/26/2024 8:50 PM CDT MAGNESIUM Timed 12/26/2024 8:50 PM CDT BASIC METABOLIC PANEL Timed 12/26/2024 8:50 PM CDT CBC WITHOUT DIFFERENTIAL Timed 12/26/2024 8:50 PM CDT TRANSFUSE RED BLOOD CELLS Timed 12/26/2024 12:40 PM CDT PREPARE RBC Timed 12/26/2024 12:09 PM CDT DIFFERENTIAL AUTO Timed 12/26/2024 11:09 AM CDT CBC WITH AUTO DIFFERENTIAL Timed 12/26/2024 11:09 AM CDT CBC WITHOUT DIFFERENTIAL Timed 12/26/2024 5:59 AM CDT ECG 12-LEAD STAT 12/26/2024 5:36 AM CDT EGFR Timed 12/25/2024 8:01 PM CDT PHOSPHORUS Timed 12/25/2024 8:01 PM CDT MAGNESIUM Timed 12/25/2024 8:01 PM CDT BASIC METABOLIC PANEL Timed 12/25/2024 8:01 PM CDT CBC WITHOUT DIFFERENTIAL Timed 12/25/2024 8:01 PM CDT POC BLOOD GAS AND CHEMISTRIES, ARTERIAL Routine 12/25/2024 11:08 AM CDT SURGICAL PATHOLOGY Routine 12/25/2024 11:04 AM CDT CYTOLOGY Routine 12/25/2024 10:09 AM CDT 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) Small bowel obstruction (HCC) AK AN PROCEDURE PLACEHOLDER Routine 12/25/2024 9:56 AM CDT AK AN PROCEDURE PLACEHOLDER Routine 12/25/2024 9:55 AM CDT AK AN PROCEDURE PLACEHOLDER Routine 12/25/2024 9:53 AM CDT AK AN ELECTIVE ENDOTRACHEAL AIRWAY Routine 12/25/2024 9:53 AM CDT RESECTION SMALL BOWEL 12/25/2024 9:18 AM CDT 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) Small bowel obstruction (HCC) EGFR Routine 12/25/2024 8:18 AM CDT DIFFERENTIAL AUTO Routine 12/25/2024 8:1 8 AM CDT PROTIME-INR Routine 12/25/2024 8:18 AM CDT COMPREHENSIVE METABOLIC PANEL Routine 12/25/2024 8:18 AM CDT CBC WITH AUTO DIFFERENTIAL Routine 12/25/2024 8:18 AM CDT TYPE AND SCREEN 14 DAY Routine 2:31 PM CDT Preoperative testing POCT GLUCOSE DEVICE Routine 12/19/2024 8 :06 AM CDT EGFR Routine 12/19/2024 6:14 AM CDT PHOSPHORUS Routine 12/19/2024 6:14 AM CDT MAGNESIUM Routine 12/19/2024 6:14 AM CDT BASIC METABOLIC PANEL Routine 12/19/2024 6:14 AM CDT POCT GLUCOSE DEVICE Routine 12/19/2024 4 :05 AM CDT POCT GLUCOSE DEVICE Routine 12/18/2024 11:19 PM CDT POCT GLUCOSE DEVICE Routine 12/18/2024 7 :51 PM CDT POCT GLUCOSE DEVICE Routine 12/18/2024 4 :19 PM CDT POCT GLUCOSE DEVICE Routine 12/18/2024 11:48 AM CDT EGFR Routine 12/18/2024 5:31 AM CDT PHOSPHORUS Routine 12/18/2024 5:31 AM CDT MAGNESIUM Routine 12/18/2024 5:31 AM CDT BASIC METABOLIC PANEL Routine 12/18/2024 5:31 AM CDT XR ABDOMEN AP 1 VIEW IP Routine 12/18/2024 3:05 AM CDT POCT GLUCOSE DEVICE Routine 12/17/2024 11:17 PM CDT XR ABDOMEN AP 1 VIEW IP Routine 12/17/2024 9:11 PM CDT POCT GLUCOSE DEVICE Routine 12/17/2024 5 :56 PM CDT XR ABDOMEN AP 1 VIEW Timed 12/17/2024 12:48 PM CDT POCT GLUCOSE DEVICE Routine 12/17/2024 11:40 AM CDT POCT GLUCOSE DEVICE Routine 12/17/2024 5 :37 AM CDT EGFR Routine 12/17/2024 5:35 AM CDT PHOSPHORUS Routine 12/17/2024 5:35 AM CDT MAGNESIUM Routine 12/17/2024 5:35 AM CDT BASIC METABOLIC PANEL Routine 12/17/2024 5:35 AM CDT POCT GLUCOSE DEVICE Routine 12/16/2024 11:14 PM CDT POCT GLUCOSE DEVICE Routine 12/16/2024 5 :02 PM CDT POCT GLUCOSE DEVICE Routine 12/16/2024 11:12 AM CDT POTASSIUM, WHOLE BLOOD Routine 9:01 AM CDT POCT GLUCOSE DEVICE Routine 12/16/2024 5 :48 AM CDT EGFR Routine 12/16/2024 5:44 AM CDT PHOSPHORUS Routine 12/16/2024 5:44 AM CDT MAGNESIUM Routine 12/16/2024 5:44 AM CDT BASIC METABOLIC PANEL Routine 12/16/2024 5:44 AM CDT POCT GLUCOSE DEVICE Routine 12/15/2024 11:17 PM CDT POCT GLUCOSE DEVICE Routine 12/15/2024 5 :24 PM CDT POCT GLUCOSE DEVICE Routine 12/15/2024 12:01 PM CDT POCT GLUCOSE DEVICE Routine 12/15/2024 5 :30 AM CDT EGFR Routine 12/15/2024 5:29 AM CDT PHOSPHORUS Routine 12/15/2024 5:29 AM CDT MAGNESIUM Routine 12/15/2024 5:29 AM CDT BASIC METABOLIC PANEL Routine 12/15/2024 5:29 AM CDT POCT GLUCOSE DEVICE Routine 12/14/2024 11:26 PM CDT POCT GLUCOSE DEVICE Routine 12/14/2024 5 :01 PM CDT POCT GLUCOSE DEVICE Routine 12/14/2024 12:51 PM CDT PHOSPHORUS Timed 12/14/2024 8:46 AM CDT MAGNESIUM Timed 12/14/2024 8:46 AM CDT POCT GLUCOSE DEVICE Routine 12/14/2024 6 :11 AM CDT POCT GLUCOSE DEVICE Routine 12/14/2024 12:04 AM CDT EGFR Timed 12/13/2024 8:24 PM CDT PHOSPHORUS Timed 12/13/2024 8:24 PM CDT MAGNESIUM Timed 12/13/2024 8:24 PM CDT COMPREHENSIVE METABOLIC PANEL Timed 12/13/2024 8:24 PM CDT POCT GLUCOSE DEVICE Routine 12/13/2024 5 :03 PM CDT POCT GLUCOSE DEVICE Routine 12/13/2024 11:06 AM CDT EGFR Timed 12/13/2024 8:38 AM CDT PHOSPHORUS Timed 12/13/2024 8:38 AM CDT MAGNESIUM Timed 12/13/2024 8:38 AM CDT COMPREHENSIVE METABOLIC PANEL Timed 12/13/2024 8:38 AM CDT POCT GLUCOSE DEVICE Routine 12/13/2024 6 :00 AM CDT POCT GLUCOSE DEVICE Routine 12/13/2024 12:05 AM CDT EGFR Timed 12/12/2024 10:41 PM CDT TRIGLYCERIDES Routine 12/12/2024 10:41 PM CDT PHOSPHORUS Timed 12/12/2024 10:41 PM CDT MAGNESIUM Timed 12/12/2024 10:41 PM CDT COMPREHENSIVE METABOLIC PANEL Timed 12/12/2024 10:41 PM CDT CBC WITHOUT DIFFERENTIAL Routine 12/12/2024 10:41 PM CDT POCT GLUCOSE DEVICE Routine 12/12/2024 6 :20 PM CDT EGFR Timed 12/12/2024 3:12 PM CDT PHOSPHORUS Timed 12/12/2024 3:12 PM CDT MAGNESIUM Timed 12/12/2024 3:12 PM CDT COMPREHENSIVE METABOLIC PANEL Timed 12/12/2024 3:12 PM CDT EGFR Timed 12/12/2024 11:00 AM CDT PHOSPHORUS Timed 12/12/2024 11:00 AM CDT MAGNESIUM Timed 12/12/2024 11:00 AM CDT COMPREHENSIVE METABOLIC PANEL Timed 12/12/2024 11:00 AM CDT POCT GLUCOSE DEVICE Routine 12/12/2024 10:59 AM CDT PHOSPHORUS Timed 12/12/2024 5:16 AM CDT MAGNESIUM Timed 12/12/2024 5:16 AM CDT EGFR Timed 12/12/2024 12:25 AM CDT VITAMIN A Routine 12/12/2024 12:25 AM CDT ZINC Routine 12/12/2024 12:25 AM CDT COPPER, SERUM Routine 12/12/2024 12:25 AM CDT VITAMIN B1 Routine 12/12/2024 12:25 AM CDT VITAMIN B12 Routine 12/12/2024 12:25 AM CDT FOLATE Routine 12/12/2024 12:25 AM CDT VITAMIN D 25 HYDROXY Routine 12/12/2024 12:25 AM CDT IRON PROFILE W/ IBC Routine 12/12/2024 12:25 AM CDT PHOSPHORUS Routine 12/12/2024 12:25 AM CDT MAGNESIUM Routine 12/12/2024 12:25 AM CDT COMPREHENSIVE METABOLIC PANEL Timed 12/12/2024 12:25 AM CDT CBC WITHOUT DIFFERENTIAL Timed 12/12/2024 12:25 AM CDT EGFR STAT 12/11/2024 11:52 AM CDT DIFFERENTIAL AUTO STAT 12/11/2024 11:52 AM CDT PROTIME-INR STAT 12/11/2024 11:52 AM CDT PHOSPHORUS STAT 12/11/2024 11:52 AM CDT MAGNESIUM STAT 12/11/2024 11:52 AM CDT COMPREHENSIVE METABOLIC PANEL STAT 12/11/2024 11:52 AM CDT CBC WITH AUTO DIFFERENTIAL STAT 12/11/2024 11:52 AM CDT PAP AND HIGH RISK HPV, REFLEX TO GENOTYPING Routine 12/06/2024 1:01 PM CDT Well woman exam HIGH RISK HPV DNA DETECTION WITH GENOTYPING Routine 12/06/2024 1:01 PM CDT Well woman exam EGFR Routine 12/05/2024 4:30 PM CDT SBO (small bowel obstruction) (HCC) SEROTONIN Routine 12/05/2024 4:30 PM CDT SBO (small bowel obstruction) (HCC) NEURON SPECIFIC ENOLASE Routine 12/05/2024 4:30 PM CDT SBO (small bowel obstruction) (HCC) CHROMOGRANIN A Routine 12/05/2024 4:30 PM CDT SBO (small bowel obstruction) (HCC) CBC WITHOUT DIFFERENTIAL Routine 12/05/2024 4:30 PM CDT SBO (small bowel obstruction) (HCC) COMPREHENSIVE METABOLIC PANEL Routine 12/05/2024 4:30 PM CDT SBO (small bowel obstruction) (HCC) PREALBUMIN Routine 12/05/2024 4:30 PM CDT 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) PROTIME-INR Routine 12/05/2024 4:30 PM CDT 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) TYPE AND SCREEN Routine 12/05/2024 4:30 PM CDT 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) APTT Routine 12/05/2024 4:30 PM CDT 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) PET/CT GA-68 DOTATATE SKULL TO THIGH Schedule Routine, Read Routine (OP Routine) 12/04/2024 12:20 PM CDT SBO (small bowel obstruction) (HCC) US GUIDED BIOPSY ABDOMEN RETROPERITONEAL Schedule Routine, Read Routine (OP Routine) 11/16/2024 1:25 PM CDT Epigastric pain SURGICAL PATHOLOGY Routine 11/16/2024 12:25 PM CDT Epigastric pain PROTIME-INR Routine 11/06/2024 8:[address] CHEST W CONTRAST IP Routine 11/05/2024 12:21 PM CDT XR ABDOMEN AP 1 VIEW IP Routine 11/05/2024 11:25 AM CDT US TRANSVAGINAL IP Routine 11/05/2024 8:43 AM CDT EGFR Routine 11/04/2024 9:53 PM CDT COMPREHENSIVE METABOLIC PANEL Routine 11/04/2024 9:53 PM CDT CBC WITHOUT DIFFERENTIAL Routine 11/04/2024 9:53 PM CDT PHOSPHORUS Routine 11/04/2024 9:53 PM CDT MAGNESIUM Routine 11/04/2024 9:53 PM CDT XR ABDOMEN AP 1 VIEW IP Routine 11/04/2024 9:22 PM CDT XR ABDOMEN AP 1 VIEW IP Routine 11/04/2024 3:30 PM CDT CEA Routine 11/04/2024 9:26 AM CDT LACTATE DEHYDROGENASE Routine 11/04/2024 9:26 AM CDT INHIBIN A AND B Routine 11/04/2024 9:26 AM CDT HCG, BLOOD, QUANTITATIVE Routine 11/04/2024 9:26 AM CDT CA 125 Routine 11/04/2024 9:26 AM CDT CANCER ANTIGEN 19-9 Routine 11/04/2024 9 :26 AM CDT [id number], TUMOR MARKER Routine 11/04/2024 9:26 AM CDT B CHECK SAMPLE STAT 11/04/2024 9:26 AM CDT POCT GLUCOSE DEVICE Routine 11/03/2024 8 :53 PM CDT EGFR STAT 11/03/2024 7:33 PM CDT LACTATE STAT 11/03/2024 7:33 PM CDT PREALBUMIN STAT 11/03/2024 7:33 PM CDT TYPE AND SCREEN STAT 11/03/2024 7:33 PM CDT PROTIME-INR STAT 11/03/2024 7:33 PM CDT PHOSPHORUS STAT 11/03/2024 7:33 PM CDT MAGNESIUM STAT 11/03/2024 7:33 PM CDT COMPREHENSIVE METABOLIC PANEL STAT 11/03/2024 7:33 PM CDT CBC WITHOUT DIFFERENTIAL STAT 11/03/2024 7:[address] BODY OUTSIDE CONSULT Routine 11/03/2024 6:28 PM CDT Diagnosis unknown from Last 3 Months Results * eGFR (01/01/2025 10:14 PM CDT) eGFR >90 >=60 mL/min/1. 73 m2 Comment: Interpretive Data Reference Interval Normal >/= 90 mL/min/1.73m2 Mildly decreased* 60 - 89 mL/min/1.73m2 Mildly to moderately decreased 45 - 59 mL/min/1.73m2 Moderately to severely decreased 30 - 44 mL/min/1.73m2 Severely decreased 15 - 29 mL/min/1.73m2 Kidney Failure < 15 mL/min/1.73m2 *Relative to young adult level Estimated glomerular filtration rate is determined by the 2020 CKD-EPI equation recommended by the National Kidney Foundation (A Unifying Approach to GFR Estimation: Recommendations of the NKF-ASK Task Force on Reassessing the Inclusion of Race in Diagnosing Kidney Disease, JASN 2020). The CKD-EPI equation should not be used for patients with unstable renal function and has not been validated in children and those over 70. Current interpretive data was last reviewed 2021. Blood 01/01/2025 10:1 4 PM CDT 01/01/2025 10:34 PM CDT us Debra Cagle MD LAB BLOOD ORDERABLES Final R esult [facility] Department [place] [address] * (ABNORMAL) CBC without differential (01/01/2025 10:14 PM CDT) WBC 7.39 3.80 - 9.90 K/cumm Hgb 8.6(L) 11.9 - 15.5 g/dL [facility] Hct 26.1(L) 35.6 - 45.5 % [facility] Plt 358 150 - 400 K/cumm [facility] MPV 10.0 9.1 - 12.3 fL [facility] RBC 3.04(L) 3.90 - 5.20 M/cumm [facility] MCV 85.9 81.3 - 96.4 fL [facility] MCH 28.3 27.1 - 33.3 pg [facility] MCHC 33.0 32.3 - 35.7 g/dL [facility] RDW CV 17.2(H) 11.1 - 14.9 % [facility] RDW SD 53.4(H) 35.7 - 48.1 fL [facility] NRBC abs 0.00 0.00 - 0.01 K/cumm [facility] Blood 01/01/2025 10:1 4 PM CDT 01/01/2025 10:34 PM CDT Debra Cagle MD LAB BLOOD ORDERABLES Final R esult Performing Organization Address [facility] Co de Phone Number [facility] [place] [address] * Phosphorus (01/01/2025 10:14 PM CDT) [facility] Phosphorus, pl 4.5 2.3 - 4.5 mg/dL Blood 01/01/2025 10:1 4 PM CDT 01/01/2025 10:34 PM CDT Debra Cagle MD LAB BLOOD ORDERABLES Final R esult Performing Organization Address [facility] de Phone Number [facility] [place] [address] * Magnesium (01/01/2025 10:14 PM CDT) [facility] Magnesium 1.9 1.4 - 2.5 mg/dL Blood 01/01/2025 10:1 4 PM CDT 01/01/2025 10:34 PM CDT Debra Cagle MD LAB BLOOD ORDERABLES Final R esult Performing Organization Address [facility] [place] [address] * (ABNORMAL) Comprehensive metabolic panel (01/01/2025 10:14 PM CDT) [facility] Sodium 137 135 - 145 mmol/L Potassium, pl 3.9 3.3 - 4.9 mmol/L [facility] [place] 103 97 - 110 mmol/L [facility] CO2 24 22 - 32 mmol/L [facility] Anion gap 10 2 - 15 mmol/L [facility] BUN 10 6 - 25 mg/dL [facility] Creatinine 0.39(L) 0.60 - 1.10 mg/dL [facility] Glucose 83 70 - 199 mg/dL [facility] Comment: Interpretive Data Fasting glucose >/= 126 mg/dl is diagnostic for diabetes. Fasting is defined as no caloric intake for at least 8 hours. Fasting glucose between 100 mg/dl to 125 mg/dl is diagnostic of prediabetes. In a patient with classic symptoms of hyperglycemia or hyperglycemic crisis, a random glucose >/= 200 mg/dl is diagnostic for diabetes. In the absence of unequivocal hyperglycemia, results should be confirmed by repeat testing. The classification and Diagnosis of Diabetes Diabetes Care 202; 46: S19-S40. Current interpretive data was last revised 2022. Calcium 8.6 8.5 - 10.3 mg/dL [facility] Bilirubin, total 0.3 0.1 - 1.2 mg/dL [facility] Protein, pl 5.2(L) 6.5 - 8.5 g/dL [facility] Albumin 2.4(L) 3.5 - 5.0 g/dL [facility] Alk phos 78 40 - 130 Units/L [facility] ALT 45 7 - 45 Units/L [facility] AST 34 10 - 45 Units/L [facility] Blood 01/01/2025 10:1 4 PM CDT 01/01/2025 10:34 PM CDT Debra Cagle MD LAB BLOOD ORDERABLES Final R esult [facility] Department [place] [address] * eGFR (12/31/2024 9:20 PM CDT) eGFR >90 >=60 mL/min/1. 73 m2 Comment: Interpretive Data Reference Interval Normal >/= 90 mL/min/1.73m2 Mildly decreased* 60 - 89 mL/min/1.73m2 Mildly to moderately decreased 45 - 59 mL/min/1.73m2 Moderately to severely decreased 30 - 44 mL/min/1.73m2 Severely decreased 15 - 29 mL/min/1.73m2 Kidney Failure < 15 mL/min/1.73m2 *Relative to young adult level Estimated glomerular filtration rate is determined by the 2020 CKD-EPI equation recommended by the National Kidney Foundation (A Unifying Approach to GFR Estimation: Recommendations of the NKF-ASK Task Force on Reassessing the Inclusion of Race in Diagnosing Kidney Disease, JASN 2020). The CKD-EPI equation should not be used for patients with unstable renal function and has not been validated in children and those over 70. Current interpretive data was last reviewed 2021. Blood 12/31/2024 9:20 PM CDT 12/31/2024 9:40 PM CDT us Debra Cagle MD LAB BLOOD ORDERABLES Final R esult [facility] Department [place] [address] * (ABNORMAL) CBC without differential (12/31/2024 9:20 PM CDT) WBC 10.62(H) 3.80 - 9.90 K/cumm Hgb 9.5(L) 11.9 - 15.5 g/dL [facility] Hct 28.4(L) 35.6 - 45.5 % [facility] Plt 445(H) 150 - 400 K/cumm [facility] MPV 9.7 9.1 - 12.3 fL [facility] RBC 3.41(L) 3.90 - 5.20 M/cumm [facility] MCV 83.3 81.3 - 96.4 fL [facility] MCH 27.9 27.1 - 33.3 pg [facility] MCHC 33.5 32.3 - 35.7 g/dL [facility] RDW CV 17.1(H) 11.1 - 14.9 % [facility] RDW SD 51.6(H) 35.7 - 48.1 fL [facility] NRBC abs 0.00 0.00 - 0.01 K/cumm [facility] Blood 12/31/2024 9:20 PM CDT 12/31/2024 9:39 PM CDT Debra Cagle MD LAB BLOOD ORDERABLES Final R esult Performing Organization Address [facility] Co de Phone Number [facility] [employer] [place] [address] * (ABNORMAL) Phosphorus (12/31/2024 9:20 PM CDT) Pathologist [facility] Phosphorus, pl 4.6(H) 2.3 - 4.5 mg/dL Blood 12/31/2024 9:20 PM CDT 12/31/2024 9:32 PM CDT Debra Cagle MD LAB BLOOD ORDERABLES Final R esult Performing Organization Address [facility] Co de Phone Number [facility] [place] [address] * Magnesium (12/31/2024 9:20 PM CDT) [facility] Magnesium 1.8 1.4 - 2.5 mg/dL Blood 12/31/2024 9:20 PM CDT 12/31/2024 9:32 PM CDT Debra Cagle MD LAB BLOOD ORDERABLES Final R esult Performing Organization Address [facility] [place] [address] * (ABNORMAL) Comprehensive metabolic panel (12/31/2024 9:20 PM CDT) Pathologist [facility] Sodium 140 135 - 145 mmol/L Potassium, pl 4.6 3.3 - 4.9 mmol/L [facility] [place] 106 97 - 110 mmol/L [facility] CO2 24 22 - 32 mmol/L [facility] Anion gap 10 2 - 15 mmol/L [facility] BUN 12 6 - 25 mg/dL [facility] Creatinine 0.42(L) 0.60 - 1.10 mg/dL [facility] Glucose 91 70 - 199 mg/dL [facility] Comment: Interpretive Data Fasting glucose >/= 126 mg/dl is diagnostic for diabetes. Fasting is defined as no caloric intake for at least 8 hours. Fasting glucose between 100 mg/dl to 125 mg/dl is diagnostic of prediabetes. In a patient with classic symptoms of hyperglycemia or hyperglycemic crisis, a random glucose >/= 200 mg/dl is diagnostic for diabetes. In the absence of unequivocal hyperglycemia, results should be confirmed by repeat testing. The classification and Diagnosis of Diabetes Diabetes Care 2021; 46: S19-S40. Current interpretive data was last revised 2022. Calcium 8.7 8.5 - 10.3 mg/dL [facility] Bilirubin, total 0.3 0.1 - 1.2 mg/dL [facility] Protein, pl 5.6(L) 6.5 - 8.5 g/dL [facility] Albumin 2.6(L) 3.5 - 5.0 g/dL [facility] Alk phos 88 40 - 130 Units/L [facility] ALT 58(H) 7 - 45 Units/L [facility] AST 40 10 - 45 Units/L [facility] Blood 12/31/2024 9:20 PM CDT 12/31/2024 9:32 PM CDT us Debra Cagle MD LAB BLOOD ORDERABLES Final R esult [facility] Department [place] [address] * eGFR (12/31/2024 5:11 AM CDT) eGFR >90 >=60 mL/min/1. 73 m2 Comment: Interpretive Data Reference Interval Normal >/= 90 mL/min/1.73m2 Mildly decreased* 60 - 89 mL/min/1.73m2 Mildly to moderately decreased 45 - 59 mL/min/1.73m2 Moderately to severely decreased 30 - 44 mL/min/1.73m2 Severely decreased 15 - 29 mL/min/1.73m2 Kidney Failure < 15 mL/min/1.73m2 *Relative to young adult level Estimated glomerular filtration rate is determined by the 2020 CKD-EPI equation recommended by the National Kidney Foundation (A Unifying Approach to GFR Estimation: Recommendations of the NKF-ASK Task Force on Reassessing the Inclusion of Race in Diagnosing Kidney Disease, JASN 2020). The CKD-EPI equation should not be used for patients with unstable renal function and has not been validated in children and those over 70. Current interpretive data was last reviewed 2021. Blood 12/31/2024 5:11 AM CDT 12/31/2024 5:27 AM CDT us Iveth Bautista MD LAB BLOOD ORDERABLES Final Resul t [facility] Department [place] [address] * (ABNORMAL) CBC without differential (12/31/2024 5:11 AM CDT) WBC 6.59 3.80 - 9.90 K/cumm Hgb 8.2(L) 11.9 - 15.5 g/dL [facility] Hct 24.9(L) 35.6 - 45.5 % [facility] Plt 317 150 - 400 K/cumm [facility] MPV 9.9 9.1 - 12.3 fL [facility] RBC 2.95(L) 3.90 - 5.20 M/cumm [facility] MCV 84.4 81.3 - 96.4 fL [facility] Comment:Consistent with hist orical value. MCH 27.8 27.1 - 33.3 pg [facility] MCHC 32.9 32.3 - 35.7 g/dL [facility] RDW CV 17.1(H) 11.1 - 14.9 % [facility] RDW SD 52.4(H) 35.7 - 48.1 fL [facility] NRBC abs 0.00 0.00 - 0.01 K/cumm [facility] Blood 12/31/2024 5:11 AM CDT 12/31/2024 5:26 AM CDT Iveth Bautista MD LAB BLOOD ORDERABLES Final Resul t Performing Organization Address City/[facility] Co de Phone Number [facility] [place] [address] * Phosphorus (12/31/2024 5:11 AM CDT) Pathologist [facility] Phosphorus, pl 4.5 2.3 - 4.5 mg/dL Blood 12/31/2024 5:11 AM CDT 12/31/2024 5:27 AM CDT Iveth Bautista MD LAB BLOOD ORDERABLES Final Resul t Performing Organization Address [facility] de Phone Number [facility] [place] [address] * Magnesium (12/31/2024 5:11 AM CDT) [facility] Magnesium 2.1 1.4 - 2.5 mg/dL Blood 12/31/2024 5:11 AM CDT 12/31/2024 5:27 AM CDT Iveth Bautista MD LAB BLOOD ORDERABLES Final Resul t Performing Organization Address [facility] Co de Phone Number [facility] [employer] [place] [address] * (ABNORMAL) Comprehensive metabolic panel (12/31/2024 5:11 AM CDT) [facility] Sodium 138 135 - 145 mmol/L Comment:Repeated and Verifie d Potassium, pl 3.8 3.3 - 4.9 mmol/L [facility] [place] 105 97 - 110 mmol/L [facility] Comment:Repeated and Verifie d CO2 27 22 - 32 mmol/L [facility] Anion gap 6 2 - 15 mmol/L [facility] BUN 10 6 - 25 mg/dL [facility] Creatinine 0.35(L) 0.60 - 1.10 mg/dL [facility] Glucose 153 70 - 199 mg/dL [facility] Comment: Interpretive Data Fasting glucose >/= 126 mg/dl is diagnostic for diabetes. Fasting is defined as no caloric intake for at least 8 hours. Fasting glucose between 100 mg/dl to 125 mg/dl is diagnostic of prediabetes. In a patient with classic symptoms of hyperglycemia or hyperglycemic crisis, a random glucose >/= 200 mg/dl is diagnostic for diabetes. In the absence of unequivocal hyperglycemia, results should be confirmed by repeat testing. The classification and Diagnosis of Diabetes Diabetes Care 2021; 46: S19-S40. Current interpretive data was last revised 2022. Calcium 7.9(L) 8.5 - 10.3 mg/dL [facility] Bilirubin, total 0.2 0.1 - 1.2 mg/dL [facility] Protein, pl 4.7(L) 6.5 - 8.5 g/dL [facility] Albumin 2.5(L) 3.5 - 5.0 g/dL [facility] Alk phos 79 40 - 130 Units/L [facility] ALT 55(H) 7 - 45 Units/L [facility] AST 34 10 - 45 Units/L [facility] Blood 12/31/2024 5:11 AM CDT 12/31/2024 5:27 AM CDT us Iveth Bautista MD LAB BLOOD ORDERABLES Final Resul t [facility] Department [place] [address] * eGFR (12/30/2024 11:09 PM CDT) eGFR See Comment >=60 Comment: Credited: Sample investigated and is suggestive of an improper collection (e.g., IV fluid contamination, improper tube type). Deleted at the Request of Christal Gupta(RN) on 12/31/2024 03:39:40 CDT by SK . Interpretive Data Reference Interval Normal >/= 90 mL/min/1.73m2 Mildly decreased* 60 - 89 mL/min/1.73m2 Mildly to moderately decreased 45 - 59 mL/min/1.73m2 Moderately to severely decreased 30 - 44 mL/min/1.73m2 Severely decreased 15 - 29 mL/min/1.73m2 Kidney Failure < 15 mL/min/1.73m2 *Relative to young adult level Estimated glomerular filtration rate is determined by the 2020 CKD-EPI equation recommended by the National Kidney Foundation (A Unifying Approach to GFR Estimation: Recommendations of the NKF-ASK Task Force on Reassessing the Inclusion of Race in Diagnosing Kidney Disease, JASN 2020). The CKD-EPI equation should not be used for patients with unstable renal function and has not been validated in children and those over 70. Current interpretive data was last reviewed 2021. Blood 12/30/2024 11:0 9 PM CDT 12/31/2024 2:22 AM CDT us Debra Cagle MD LAB BLOOD ORDERABLES Edited Result - Final Performing Organization Address City/[facility]/ZIP Co de Phone Number [facility] Department [place] [address] * Critical Result Callback Chemistry (12/30/2024 11:09 PM CDT) Date Notified [id number] Time Notified 314 MAYA CANO TestName Glucose, Potassium plas MAYA WITT Called/Read Back Christal CANO Credentials RN MAYA WITT Called By IDA CANO Blood 12/30/2024 11:0 9 PM CDT 12/31/2024 2:22 AM CDT us Debra Calge MD LAB BLOOD ORDERABLES Final R esult [facility] Department [place] [address] * (ABNORMAL) CBC without differential (12/30/2024 11:09 PM CDT) [facility] WBC 7.58 3.80 - 9.90 K/cumm Hgb 8.7(L) 11.9 - 15.5 g/dL [facility] Hct 26.6(L) 35.6 - 45.5 % [facility] Plt 325 150 - 400 K/cumm [facility] MPV 13.0(H) 9.1 - 12.3 fL [facility] RBC 2.92(L) 3.90 - 5.20 M/cumm [facility] MCV 91.1 81.3 - 96.4 fL [facility] Comment:MCV delta due to glu cose > 500. MCH 29.8 27.1 - 33.3 pg [facility] MCHC 32.7 32.3 - 35.7 g/dL [facility] RDW CV 18.2(H) 11.1 - 14.9 % [facility] RDW SD 59.9(H) 35.7 - 48.1 fL [facility] NRBC abs 0.02(H) 0.00 - 0.01 K/cumm [facility] Blood 12/30/2024 11:0 9 PM CDT 12/31/2024 2:22 AM CDT Debra Cagle MD LAB BLOOD ORDERABLES Final R esult [facility] Department [place] [address] * Phosphorus (12/30/2024 11:09 PM CDT) [facility] Phosphorus, pl See Comment 2.3 - 4.5 mg/dL Comment:Credited: Sample inv estigated and is suggestive of an improper collection (e.g., IV fluid contamination, improper tube type). Deleted at the Request of Christal Toney) on 12/31/2024 03:39:40 CDT by SK . Blood 12/30/2024 11:0 9 PM CDT 12/31/2024 2:09 AM CDT us Debra Cagle MD LAB BLOOD ORDERABLES Edited Result - Final Performing Organization Address [facility] de Phone Number [facility] [place] [address] * Magnesium (12/30/2024 11:09 PM CDT) Magnesium See Comment 1.4 - 2.5 mg/dL Comment:Credited: Sample inv estigated and is suggestive of an improper collection (e.g., IV fluid contamination, improper tube type). Deleted at the Request of Christal Toney) on 12/31/2024 03:39:40 CDT by SK . Blood 12/30/2024 11:0 9 PM CDT 12/31/2024 2:09 AM CDT us Debra Cagle MD LAB BLOOD ORDERABLES Edited Result - Final Performing Organization Address [facility] [place] [address] * Comprehensive metabolic panel (12/30/2024 11:09 PM CDT) Sodium See Comment 135 - 145 mmol/L Comment:Credited: Sample inv estigated and is suggestive of an improper collection (e.g., IV fluid contamination, improper tube type). Deleted at the Request of Christal Toney) on 12/31/2024 03:39:40 CDT by SK . Potassium, pl See Comment 3.3 - 4.9 mmol/L [facility] Comment:Credited: Sample inv estigated and is suggestive of an improper collection (e.g., IV fluid contamination, improper tube type). Deleted at the Request of Christal Toney) on 12/31/2024 03:39:40 CDT by SK . [place] See Comment 97 - 110 mmol/L [facility] Comment:Credited: Sample inv estigated and is suggestive of an improper collection (e.g., IV fluid contamination, improper tube type). Deleted at the Request of Christal Toney) on 12/31/2024 03:39:40 CDT by SK . CO2 See Comment 22 - 32 mmol/L [facility] Comment:Credited: Sample inv estigated and is suggestive of an improper collection (e.g., IV fluid contamination, improper tube type). Deleted at the Request of Christal Gupta(TARUN) on 12/31/2024 03:39:40 CDT by SK . Anion gap See Comment 2 - 15 mmol/L [facility] Comment:Credited: Sample inv estigated and is suggestive of an improper collection (e.g., IV fluid contamination, improper tube type). Deleted at the Request of Christal Toney) on 12/31/2024 03:39:40 CDT by SK . BUN See Comment 6 - 25 mg/dL [facility] Comment:Credited: Sample inv estigated and is suggestive of an improper collection (e.g., IV fluid contamination, improper tube type). Deleted at the Request of Christal Toney) on 12/31/2024 03:39:40 CDT by SK . Creatinine See Comment 0.60 - 1.10 mg/dL [facility] Comment:Credited: Sample inv estigated and is suggestive of an improper collection (e.g., IV fluid contamination, improper tube type). Deleted at the Request of Christal Toney) on 12/31/2024 03:39:40 CDT by SK . Glucose See Comment 70 - 199 mg/dL [facility] Comment: Credited: Sample investigated and is suggestive of an improper collection (e.g., IV fluid contamination, improper tube type). Deleted at the Request of Christal Toney) on 12/31/2024 03:39:40 CDT by SK . Interpretive Data Fasting glucose >/= 126 mg/dl is diagnostic for diabetes. Fasting is defined as no caloric intake for at least 8 hours. Fasting glucose between 100 mg/dl to 125 mg/dl is diagnostic of prediabetes. In a patient with classic symptoms of hyperglycemia or hyperglycemic crisis, a random glucose >/= 200 mg/dl is diagnostic for diabetes. In the absence of unequivocal hyperglycemia, results should be confirmed by repeat testing. The classification and Diagnosis of Diabetes Diabetes Care 2021; 46: S19-S40. Current interpretive data was last revised 2022. Calcium See Comment 8.5 - 10.3 mg/dL [facility] Comment:Credited: Sample inv estigated and is suggestive of an improper collection (e.g., IV fluid contamination, improper tube type). Deleted at the Request of Christal Gupta(RN) on 12/31/2024 03:39:40 CDT by SK . Bilirubin, total See Comment 0.1 - 1.2 mg/dL [facility] Comment:Credited: Sample inv estigated and is suggestive of an improper collection (e.g., IV fluid contamination, improper tube type). Deleted at the Request of Christal Gupta(TARUN) on 12/31/2024 03:39:40 CDT by SK . Protein, pl See Comment 6.5 - 8.5 g/dL [facility] Comment:Credited: Sample inv estigated and is suggestive of an improper collection (e.g., IV fluid contamination, improper tube type). Deleted at the Request of Christal Gupta(TARUN) on 12/31/2024 03:39:40 CDT by SK . Albumin See Comment 3.5 - 5.0 g/dL [facility] Comment:Credited: Sample inv estigated and is suggestive of an improper collection (e.g., IV fluid contamination, improper tube type). Deleted at the Request of Christal Toney) on 12/31/2024 03:39:40 CDT by SK . Alk phos See Comment 40 - 130 Units/L [facility] Comment:Credited: Sample inv estigated and is suggestive of an improper collection (e.g., IV fluid contamination, improper tube type). Deleted at the Request of Christal Toney) on 12/31/2024 03:39:40 CDT by SK . ALT See Comment 7 - 45 Units/L [facility] Comment: After removal of gross lipemia. Credited: Sample investigated and is suggestive of an improper collection (e.g., IV fluid contamination, improper tube type). Deleted at the Request of Christal Gupta(RN) on 12/31/2024 03:39:40 CDT by SK . AST See Comment 10 - 45 Units/L [facility] Comment: After removal of gross lipemia. Credited: Sample investigated and is suggestive of an improper collection (e.g., IV fluid contamination, improper tube type). Deleted at the Request of Christal Toney) on 12/31/2024 03:39:40 CDT by SK . Blood 12/30/2024 11:0 9 PM CDT 12/31/2024 2:09 AM CDT Debra Cagle MD LAB BLOOD ORDERABLES Edited Result - Final Performing Organization Address [facility]/ZIP Co de Phone Number [facility] Department [place] [address] * Infection Prevention VRE Culture Stool (12/30/2024 6:47 AM CDT) Report Final Report: Negative Stool 12/30/2024 6:47 AM CDT 12/30/2024 9:17 AM CDT Narrative [facility] - 01/01/2025 11:46 AM CDT Surveillance culture for Infection Prevention purposes only; results indicate colonization, not infection requiring treatment. Testing performed by [facility] ([phone]). Debra Cagle MD LAB MICROBIOLOGY - GENERAL O RDERABLES Final Result [facility] [place] [address] * C. difficile testing Stool (12/30/2024 6:43 AM CDT) GDH Result Positive Negative Toxin Result Negative Negative [facility] C. diff result Negative, free toxin. Negative, free toxin [facility] C. diff interp GDH+/toxin- results almost never represent true C. difficile infection (CDI). Results may represent colonization with C. difficile without CDI, detection of a bacteria other than toxigenic C. difficile, or a false negative toxin assay. If there is a high index of suspicion for CDI, additional testing by PCR is available upon request. [facility] Stool 12/30/2024 6:43 AM CDT 12/30/2024 7:37 AM CDT us Debra Cagle MD LAB MICROBIOLOGY - GENERAL O RDERABLES Final Result Performing Organization Address City/[facility]/ZIP Co de Phone Number [facility] Department [place] [address] * eGFR (12/29/2024 8:32 PM CDT) eGFR >90 >=60 mL/min/1. 73 m2 Comment: Interpretive Data Reference Interval Normal >/= 90 mL/min/1.73m2 Mildly decreased* 60 - 89 mL/min/1.73m2 Mildly to moderately decreased 45 - 59 mL/min/1.73m2 Moderately to severely decreased 30 - 44 mL/min/1.73m2 Severely decreased 15 - 29 mL/min/1.73m2 Kidney Failure < 15 mL/min/1.73m2 *Relative to young adult level Estimated glomerular filtration rate is determined by the 2020 CKD-EPI equation recommended by the National Kidney Foundation (A Unifying Approach to GFR Estimation: Recommendations of the NKF-ASK Task Force on Reassessing the Inclusion of Race in Diagnosing Kidney Disease, JASN 2020). The CKD-EPI equation should not be used for patients with unstable renal function and has not been validated in children and those over 70. Current interpretive data was last reviewed 2021. Blood 12/29/2024 8:32 PM CDT 12/29/2024 8:53 PM CDT Debra Cagle MD LAB BLOOD ORDERABLES Final R esult [facility] Department [place] [address] * (ABNORMAL) CBC without differential (12/29/2024 8:32 PM CDT) [facility] WBC 7.14 3.80 - 9.90 K/cumm Hgb 9.3(L) 11.9 - 15.5 g/dL [facility] Hct 27.7(L) 35.6 - 45.5 % [facility] Plt 330 150 - 400 K/cumm [facility] MPV 9.7 9.1 - 12.3 fL [facility] RBC 3.38(L) 3.90 - 5.20 M/cumm [facility] MCV 82.0 81.3 - 96.4 fL [facility] MCH 27.5 27.1 - 33.3 pg [facility] MCHC 33.6 32.3 - 35.7 g/dL [facility] RDW CV 17.2(H) 11.1 - 14.9 % [facility] RDW SD 50.4(H) 35.7 - 48.1 fL [facility] NRBC abs 0.00 0.00 - 0.01 K/cumm [facility] Blood 12/29/2024 8:32 PM CDT 12/29/2024 8:54 PM CDT us Debra Cagle MD LAB BLOOD ORDERABLES Final R esult [facility] [place] [address] * Phosphorus (12/29/2024 8:32 PM CDT) [facility] Phosphorus, pl 4.2 2.3 - 4.5 mg/dL Blood 12/29/2024 8:32 PM CDT 12/29/2024 8:53 PM CDT Debra Cagle MD LAB BLOOD ORDERABLES Final R esult [facility] [place] [address] * Magnesium (12/29/2024 8:32 PM CDT) [facility] Magnesium 1.9 1.4 - 2.5 mg/dL Blood 12/29/2024 8:32 PM CDT 12/29/2024 8:53 PM CDT Debra Cagle MD LAB BLOOD ORDERABLES Final R esult Performing Organization Address [facility] Co de Phone Number [facility] [place] [address] * (ABNORMAL) Comprehensive metabolic panel (12/29/2024 8:32 PM CDT) [facility] Sodium 137 135 - 145 mmol/L Potassium, pl 4.0 3.3 - 4.9 mmol/L [facility] [place] 104 97 - 110 mmol/L [facility] CO2 25 22 - 32 mmol/L [facility] Anion gap 8 2 - 15 mmol/L [facility] BUN 11 6 - 25 mg/dL [facility] Creatinine 0.39(L) 0.60 - 1.10 mg/dL [facility] Glucose 81 70 - 199 mg/dL [facility] Comment: Interpretive Data Fasting glucose >/= 126 mg/dl is diagnostic for diabetes. Fasting is defined as no caloric intake for at least 8 hours. Fasting glucose between 100 mg/dl to 125 mg/dl is diagnostic of prediabetes. In a patient with classic symptoms of hyperglycemia or hyperglycemic crisis, a random glucose >/= 200 mg/dl is diagnostic for diabetes. In the absence of unequivocal hyperglycemia, results should be confirmed by repeat testing. The classification and Diagnosis of Diabetes Diabetes Care 202; 46: S19-S40. Current interpretive data was last revised 2022. Calcium 8.3(L) 8.5 - 10.3 mg/dL [facility] Bilirubin, total 0.4 0.1 - 1.2 mg/dL [facility] Protein, pl 5.0(L) 6.5 - 8.5 g/dL [facility] Albumin 2.4(L) 3.5 - 5.0 g/dL [facility] Alk phos 86 40 - 130 Units/L [facility] ALT 75(H) 7 - 45 Units/L [facility] AST 71(H) 10 - 45 Units/L [facility] Blood 12/29/2024 8:32 PM CDT 12/29/2024 8:53 PM CDT us Debra Cagle MD LAB BLOOD ORDERABLES Final R esult Performing Organization Address City/[facility]/ZIP Co de Phone Number [facility] Department [place] [address] * eGFR (12/28/2024 8:04 PM CDT) eGFR >90 >=60 mL/min/1. 73 m2 Comment: Interpretive Data Reference Interval Normal >/= 90 mL/min/1.73m2 Mildly decreased* 60 - 89 mL/min/1.73m2 Mildly to moderately decreased 45 - 59 mL/min/1.73m2 Moderately to severely decreased 30 - 44 mL/min/1.73m2 Severely decreased 15 - 29 mL/min/1.73m2 Kidney Failure < 15 mL/min/1.73m2 *Relative to young adult level Estimated glomerular filtration rate is determined by the 2020 CKD-EPI equation recommended by the National Kidney Foundation (A Unifying Approach to GFR Estimation: Recommendations of the NKF-ASK Task Force on Reassessing the Inclusion of Race in Diagnosing Kidney Disease, JASN 2020). The CKD-EPI equation should not be used for patients with unstable renal function and has not been validated in children and those over 70. Current interpretive data was last reviewed 2021. Blood 12/28/2024 8:04 PM CDT 12/28/2024 8:51 PM CDT us Debra Cagle MD LAB BLOOD ORDERABLES Final R esult [facility] Department [place] [address] * (ABNORMAL) CBC without differential (12/28/2024 8:04 PM CDT) [facility] WBC 7.51 3.80 - 9.90 K/cumm Hgb 8.3(L) 11.9 - 15.5 g/dL [facility] Hct 25.3(L) 35.6 - 45.5 % [facility] Plt 275 150 - 400 K/cumm [facility] MPV 10.1 9.1 - 12.3 fL [facility] RBC 3.00(L) 3.90 - 5.20 M/cumm [facility] MCV 84.3 81.3 - 96.4 fL [facility] MCH 27.7 27.1 - 33.3 pg [facility] MCHC 32.8 32.3 - 35.7 g/dL [facility] RDW CV 17.2(H) 11.1 - 14.9 % [facility] RDW SD 52.4(H) 35.7 - 48.1 fL [facility] NRBC abs 0.00 0.00 - 0.01 K/cumm [facility] Blood 12/28/2024 8:04 PM CDT 12/28/2024 8:57 PM CDT us Debra Cagle MD LAB BLOOD ORDERABLES Final R esult [facility] [place] [address] * Phosphorus (12/28/2024 8:04 PM CDT) [facility] Phosphorus, pl 3.2 2.3 - 4.5 mg/dL Blood 12/28/2024 8:04 PM CDT 12/28/2024 8:47 PM CDT us Debra Cagle MD LAB BLOOD ORDERABLES Final R esult [facility] Department [place] [address] * Magnesium (12/28/2024 8:04 PM CDT) Pathologist [facility] Magnesium 1.8 1.4 - 2.5 mg/dL Blood 12/28/2024 8:04 PM CDT 12/28/2024 8:47 PM CDT Debra Cagle MD LAB BLOOD ORDERABLES Final R esult Performing Organization Address [facility] Co de Phone Number [facility] Department [place] [address] * (ABNORMAL) Comprehensive metabolic panel (12/28/2024 8:04 PM CDT) [facility] Sodium 140 135 - 145 mmol/L Potassium, pl 4.1 3.3 - 4.9 mmol/L [facility] [place] 107 97 - 110 mmol/L [facility] CO2 27 22 - 32 mmol/L [facility] Anion gap 6 2 - 15 mmol/L [facility] BUN 11 6 - 25 mg/dL [facility] Creatinine 0.36(L) 0.60 - 1.10 mg/dL [facility] Glucose 79 70 - 199 mg/dL [facility] Comment: Interpretive Data Fasting glucose >/= 126 mg/dl is diagnostic for diabetes. Fasting is defined as no caloric intake for at least 8 hours. Fasting glucose between 100 mg/dl to 125 mg/dl is diagnostic of prediabetes. In a patient with classic symptoms of hyperglycemia or hyperglycemic crisis, a random glucose >/= 200 mg/dl is diagnostic for diabetes. In the absence of unequivocal hyperglycemia, results should be confirmed by repeat testing. The classification and Diagnosis of Diabetes Diabetes Care 202; 46: S19-S40. Current interpretive data was last revised 2022. Calcium 7.9(L) 8.5 - 10.3 mg/dL [facility] Bilirubin, total 0.4 0.1 - 1.2 mg/dL [facility] Protein, pl 4.5(L) 6.5 - 8.5 g/dL [facility] Albumin 2.2(L) 3.5 - 5.0 g/dL [facility] Alk phos 70 40 - 130 Units/L [facility] ALT 57(H) 7 - 45 Units/L [facility] AST 50(H) 10 - 45 Units/L [facility] Blood 12/28/2024 8:04 PM CDT 12/28/2024 8:47 PM CDT us Debra Cagle MD LAB BLOOD ORDERABLES Final R esult [facility] Department [place] [address] * (ABNORMAL) Hepatic function panel (12/28/2024 6:04 AM CDT) Pathologist [facility] Bilirubin, total 0.3 0.1 - 1.2 mg/dL Bilirubin, direct 0.2 0.1 - 0.3 mg/dL [facility] Protein, pl 4.5(L) 6.5 - 8.5 g/dL [facility] Albumin 2.2(L) 3.5 - 5.0 g/dL [facility] Alk phos 61 40 - 130 Units/L [facility] ALT 44 7 - 45 Units/L [facility] AST 42 10 - 45 Units/L [facility] Blood 12/28/2024 6:04 AM CDT 12/28/2024 6:45 AM CDT us Debra Cagle MD LAB BLOOD ORDERABLES Final R esult [facility] Department [place] [address] * eGFR (12/27/2024 8:22 PM CDT) eGFR >90 >=60 mL/min/1. 73 m2 Comment: Interpretive Data Reference Interval Normal >/= 90 mL/min/1.73m2 Mildly decreased* 60 - 89 mL/min/1.73m2 Mildly to moderately decreased 45 - 59 mL/min/1.73m2 Moderately to severely decreased 30 - 44 mL/min/1.73m2 Severely decreased 15 - 29 mL/min/1.73m2 Kidney Failure < 15 mL/min/1.73m2 *Relative to young adult level Estimated glomerular filtration rate is determined by the 2020 CKD-EPI equation recommended by the National Kidney Foundation (A Unifying Approach to GFR Estimation: Recommendations of the NKF-ASK Task Force on Reassessing the Inclusion of Race in Diagnosing Kidney Disease, JASN 2020). The CKD-EPI equation should not be used for patients with unstable renal function and has not been validated in children and those over 70. Current interpretive data was last reviewed 2021. Blood 12/27/2024 8:22 PM CDT 12/27/2024 8:51 PM CDT us Debra Cagle MD LAB BLOOD ORDERABLES Final R esult [facility] Department [place] [address] * (ABNORMAL) CBC without differential (12/27/2024 8:22 PM CDT) WBC 9.97(H) 3.80 - 9.90 K/cumm Hgb 9.1(L) 11.9 - 15.5 g/dL [facility] Hct 26.5(L) 35.6 - 45.5 % [facility] Plt 265 150 - 400 K/cumm [facility] MPV 9.8 9.1 - 12.3 fL [facility] RBC 3.29(L) 3.90 - 5.20 M/cumm [facility] MCV 80.5(L) 81.3 - 96.4 fL [facility] MCH 27.7 27.1 - 33.3 pg [facility] MCHC 34.3 32.3 - 35.7 g/dL [facility] RDW CV 17.1(H) 11.1 - 14.9 % [facility] RDW SD 49.8(H) 35.7 - 48.1 fL [facility] NRBC abs 0.00 0.00 - 0.01 K/cumm [facility] Blood 12/27/2024 8:22 PM CDT 12/27/2024 8:51 PM CDT us Debra Cagle MD LAB BLOOD ORDERABLES Final R esult Performing Organization Address City/State/[facility] Co de Phone Number [facility] [place] [address] * Phosphorus (12/27/2024 8:22 PM CDT) Pathologist [facility] Phosphorus, pl 2.4 2.3 - 4.5 mg/dL Blood 12/27/2024 8:22 PM CDT 12/27/2024 8:51 PM CDT us Debra Cagle MD LAB BLOOD ORDERABLES Final R esult Performing Organization Address City/[facility] Co de Phone Number [facility] [place] [address] * Magnesium (12/27/2024 8:22 PM CDT) Pathologist [facility] Magnesium 1.8 1.4 - 2.5 mg/dL Blood 12/27/2024 8:22 PM CDT 12/27/2024 8:51 PM CDT Debra Cagle MD LAB BLOOD ORDERABLES Final R esult Performing Organization Address City/[facility] Co de Phone Number [facility] [place] [address] * (ABNORMAL) Basic metabolic panel (12/27/2024 8:22 PM CDT) Pathologist [facility] Sodium 140 135 - 145 mmol/L Potassium, pl 3.1(L) 3.3 - 4.9 mmol/L [facility] [place] 103 97 - 110 mmol/L [facility] CO2 30 22 - 32 mmol/L [facility] Anion gap 7 2 - 15 mmol/L [facility] BUN 8 6 - 25 mg/dL [facility] Creatinine 0.37(L) 0.60 - 1.10 mg/dL [facility] Glucose 84 70 - 199 mg/dL [facility] Comment: Interpretive Data Fasting glucose >/= 126 mg/dl is diagnostic for diabetes. Fasting is defined as no caloric intake for at least 8 hours. Fasting glucose between 100 mg/dl to 125 mg/dl is diagnostic of prediabetes. In a patient with classic symptoms of hyperglycemia or hyperglycemic crisis, a random glucose >/= 200 mg/dl is diagnostic for diabetes. In the absence of unequivocal hyperglycemia, results should be confirmed by repeat testing. The classification and Diagnosis of Diabetes Diabetes Care 2021; 46: S19-S40. Current interpretive data was last revised 2022. Calcium 8.1(L) 8.5 - 10.3 mg/dL [facility] Blood 12/27/2024 8:22 PM CDT 12/27/2024 8:51 PM CDT us Debra Cagle MD LAB BLOOD ORDERABLES Final R esult [facility] Department [place] [address] * (ABNORMAL) Iron profile w/ IBC (12/27/2024 10:37 AM CDT) Iron 22(L) 35 - 145 mcg/dL Comment:Reviewed TIBC 106(L) 250 - 400 mcg/dL [facility] Transferrin saturation 21 20 - 50 % [facility] Blood 12/27/2024 10:3 7 AM CDT 12/27/2024 11:25 AM CDT us Suzette K. Meirink [employer]INE [employer] LAB BLOOD ORDERABLES Final Result [facility] Department [place] [address] * ECG 12 lead (12/27/2024 10:36 AM CDT) Ventricular Rate EKG/Min 122 BPM [facility] Atrial Rate 122 BPM [facility] AK-Interval (MSEC) 148 ms [facility] QRS-Interval (MSEC) 84 ms [facility] QT-Interval (MSEC) 332 ms [facility] QTc 473 ms [facility] P [place] 76 degrees [facility] R [place] 53 degrees [facility] T [place] 77 degrees [facility] Diagnosis Sinus tachycardia Otherwise normal ECG When compared with ECG of 26-DEC-2024 05:36, No significant change was found Confirmed by JOSÉ MIGUEL SANDOVAL M.D ([id number]) on 12/28/2024 4:38:34 PM [facility] 12/27/2024 10:3 6 AM CDT 12/28/2024 4:38 PM CDT us Suzette Hunt [employer]ACHINE TENDER ECG ORDERABLES Final Resu lt Performing Organization Address City/[facility] Co de Phone Number [facility] * eGFR (12/26/2024 8:50 PM CDT) eGFR >90 >=60 mL/min/1. 73 m2 Comment: Interpretive Data Reference Interval Normal >/= 90 mL/min/1.73m2 Mildly decreased* 60 - 89 mL/min/1.73m2 Mildly to moderately decreased 45 - 59 mL/min/1.73m2 Moderately to severely decreased 30 - 44 mL/min/1.73m2 Severely decreased 15 - 29 mL/min/1.73m2 Kidney Failure < 15 mL/min/1.73m2 *Relative to young adult level Estimated glomerular filtration rate is determined by the 2020 CKD-EPI equation recommended by the National Kidney Foundation (A Unifying Approach to GFR Estimation: Recommendations of the NKF-ASK Task Force on Reassessing the Inclusion of Race in Diagnosing Kidney Disease, JASN 2020). The CKD-EPI equation should not be used for patients with unstable renal function and has not been validated in children and those over 70. Current interpretive data was last reviewed 2021. Blood 12/26/2024 8:50 PM CDT 12/26/2024 10:40 PM CDT Debra Cagle MD LAB BLOOD ORDERABLES Final R esult Performing Organization Address City/[facility]/ZIP Co de Phone Number [facility] [place] [address] * (ABNORMAL) CBC without differential (12/26/2024 8:50 PM CDT) WBC 11.21(H) 3.80 - 9.90 K/cumm Hgb 9.7(L) 11.9 - 15.5 g/dL [facility] Hct 28.6(L) 35.6 - 45.5 % [facility] Plt 251 150 - 400 K/cumm [facility] MPV 10.1 9.1 - 12.3 fL [facility] RBC 3.53(L) 3.90 - 5.20 M/cumm [facility] MCV 81.0(L) 81.3 - 96.4 fL [facility] MCH 27.5 27.1 - 33.3 pg [facility] MCHC 33.9 32.3 - 35.7 g/dL [facility] RDW CV 16.9(H) 11.1 - 14.9 % [facility] RDW SD 49.3(H) 35.7 - 48.1 fL [facility] NRBC abs 0.00 0.00 - 0.01 K/cumm [facility] Blood 12/26/2024 8:50 PM CDT 12/26/2024 11:07 PM CDT us Debra Cagle MD LAB BLOOD ORDERABLES Final R esult Performing Organization Address City/[facility]/ZIP Co de Phone Number [facility] Department [place] [address] * Phosphorus (12/26/2024 8:50 PM CDT) [facility] Phosphorus, pl 3.3 2.3 - 4.5 mg/dL Blood 12/26/2024 8:50 PM CDT 12/26/2024 10:40 PM CDT Debra Cagle MD LAB BLOOD ORDERABLES Final R esult Performing Organization Address City/[facility]/[place] [address] * Magnesium (12/26/2024 8:50 PM CDT) [facility] Magnesium 1.9 1.4 - 2.5 mg/dL Blood 12/26/2024 8:50 PM CDT 12/26/2024 10:40 PM CDT Debra Cagle MD LAB BLOOD ORDERABLES Final R esult Performing Organization Address City/[facility] [place] [address] * (ABNORMAL) Basic metabolic panel (12/26/2024 8:50 PM CDT) [facility] Sodium 137 135 - 145 mmol/L Potassium, pl 3.7 3.3 - 4.9 mmol/L [facility] [place] 104 97 - 110 mmol/L [facility] CO2 27 22 - 32 mmol/L [facility] Anion gap 6 2 - 15 mmol/L [facility] BUN 9 6 - 25 mg/dL [facility] Creatinine 0.41(L) 0.60 - 1.10 mg/dL [facility] Glucose 86 70 - 199 mg/dL [facility] Comment: Interpretive Data Fasting glucose >/= 126 mg/dl is diagnostic for diabetes. Fasting is defined as no caloric intake for at least 8 hours. Fasting glucose between 100 mg/dl to 125 mg/dl is diagnostic of prediabetes. In a patient with classic symptoms of hyperglycemia or hyperglycemic crisis, a random glucose >/= 200 mg/dl is diagnostic for diabetes. In the absence of unequivocal hyperglycemia, results should be confirmed by repeat testing. The classification and Diagnosis of Diabetes Diabetes Care 2021; 46: S19-S40. Current interpretive data was last revised 2022. Calcium 8.2(L) 8.5 - 10.3 mg/dL [facility] Blood 12/26/2024 8:50 PM CDT 12/26/2024 10:40 PM CDT Debra Cagle MD LAB BLOOD ORDERABLES Final R esult Performing Organization Address [facility]/ZIP Co de Phone Number [facility] [place] [address] * Transfuse RBC (12/26/2024 4:29 PM CDT) Blood Suzette Hunt NP BLOOD TRANSFUSION ORDERABL ES Final Result Performing Organization Address City/[facility]/ZIP Co de Phone Number [facility] [place] [address] * Prepare RBC: 1 Units (12/26/2024 12:09 PM CDT) Product code [id number] Unit Number [id number] [facility] Product Blood Type ANEG [facility] Dispense Status PRESUMED TRANSFUSED [facility] Blood 12/26/2024 12:0 9 PM CDT 12/26/2024 12:08 PM CDT Narrative [facility] - 12/27/2024 12:56 AM CDT Are special requirements needed? (All products are leukoreduced and CMV- safe)- >No Date required:-[id number] LRRBC # of [id number] Reasons:-Active bleeding, Hgb <8 g/dL} Suzette Hunt NP BLOOD BANK PRODUCT ORDERAB LES Final Result [facility] One [facility] Department [place] [address] * (ABNORMAL) Differential, auto (12/26/2024 11:09 AM CDT) Neutrophil abs 8.49(H) 1.50 - 6.50 K/cumm Imm gran abs 0.03 0.00 - 0.10 K/cumm [facility] Lymphocyte abs 0.90 0.80 - 3.30 K/cumm [facility] Monocyte abs 0.96(H) 0.20 - 0.80 K/cumm [facility] Eosinophil abs 0.07 0.00 - 0.50 K/cumm [facility] Basophil abs 0.03 0.00 - 0.10 K/cumm [facility] Neutrophil pct 80.9 % [facility] Comment: Interpretive Data Percent cell count reference ranges are not reported, since discordance with absolute values may lead to misinterpretation of CBC data. Current Interpretive Data was last revised on 2017. Imm gran pct 0.3 % [facility] Comment: Interpretive Data Percent cell count reference ranges are not reported, since discordance with absolute values may lead to misinterpretation of CBC data. Current Interpretive Data was last revised on 2017. Lymphocyte pct 8.6 % [facility] Comment: Interpretive Data Percent cell count reference ranges are not reported, since discordance with absolute values may lead to misinterpretation of CBC data. Current Interpretive Data was last revised on 2017. Monocyte pct 9.2 % [facility] Comment: Interpretive Data Percent cell count reference ranges are not reported, since discordance with absolute values may lead to misinterpretation of CBC data. Current Interpretive Data was last revised on 2017. Eosinophil pct 0.7 % [facility] Comment: Interpretive Data Percent cell count reference ranges are not reported, since discordance with absolute values may lead to misinterpretation of CBC data. Current Interpretive Data was last revised on 2017. Basophil pct 0.3 % [facility] Comment: Interpretive Data Percent cell count reference ranges are not reported, since discordance with absolute values may lead to misinterpretation of CBC data. Current Interpretive Data was last revised on 2017. Blood 12/26/2024 11:0 9 AM CDT 12/26/2024 11:22 AM CDT Suzette Hunt NP LAB BLOOD ORDERABLES Final Result Performing Organization Address City/[facility] Co de Phone Number [facility] Department of [employer] [place] [address] * (ABNORMAL) CBC with auto differential (12/26/2024 11:09 AM CDT) WBC 10.48(H) 3.80 - 9.90 K/cumm Hgb 7.9(L) 11.9 - 15.5 g/dL [facility] Hct 23.0(L) 35.6 - 45.5 % [facility] Plt 267 150 - 400 K/cumm [facility] MPV 10.4 9.1 - 12.3 fL [facility] RBC 2.80(L) 3.90 - 5.20 M/cumm [facility] MCV 82.1 81.3 - 96.4 fL [facility] MCH 28.2 27.1 - 33.3 pg [facility] MCHC 34.3 32.3 - 35.7 g/dL [facility] RDW CV 17.2(H) 11.1 - 14.9 % [facility] RDW SD 51.1(H) 35.7 - 48.1 fL [facility] NRBC abs 0.00 0.00 - 0.01 K/cumm [facility] Blood 12/26/2024 11:0 9 AM CDT 12/26/2024 11:22 AM CDT Suzette Hunt NP LAB BLOOD ORDERABLES Final Result Performing Organization Address [facility]/ZIP Co de Phone Number [facility] Department [place] [address] * (ABNORMAL) CBC without differential (12/26/2024 5:59 AM CDT) [facility] WBC 9.60 3.80 - 9.90 K/cumm Hgb 8.0(L) 11.9 - 15.5 g/dL [facility] Hct 24.4(L) 35.6 - 45.5 % [facility] Plt 280 150 - 400 K/cumm [facility] MPV 10.6 9.1 - 12.3 fL [facility] RBC 2.93(L) 3.90 - 5.20 M/cumm [facility] MCV 83.3 81.3 - 96.4 fL [facility] MCH 27.3 27.1 - 33.3 pg [facility] MCHC 32.8 32.3 - 35.7 g/dL [facility] RDW CV 17.2(H) 11.1 - 14.9 % [facility] RDW SD 51.3(H) 35.7 - 48.1 fL [facility] NRBC abs 0.00 0.00 - 0.01 K/cumm [facility] Blood 12/26/2024 5:59 AM CDT 12/26/2024 6:29 AM CDT us Debra Cagle MD LAB BLOOD ORDERABLES Final R esult [facility] Department [place] [address] * ECG 12 lead (12/26/2024 5:36 AM CDT) [facility] Ventricular Rate EKG/Min 125 BPM [facility] Atrial Rate 125 BPM [facility] AK-Interval (MSEC) 124 ms [facility] QRS-Interval (MSEC) 76 ms [facility] QT-Interval (MSEC) 322 ms [facility] QTc 464 ms [facility] P [place] 76 degrees [facility] R [place] 64 degrees [facility] T [place] 79 degrees [facility] Diagnosis Sinus tachycardia Otherwise normal ECG No previous ECGs available Confirmed by MIREYA GODWIN M.D ([id number]) on 12/26/2024 12:49:00 PM [facility] 12/26/2024 5:36 AM CDT 12/26/2024 12:49 PM CDT us Debra Cagle MD ECG ORDERABLES Final Result [facility] * eGFR (12/25/2024 8:01 PM CDT) eGFR >90 >=60 mL/min/1. 73 m2 Comment: Interpretive Data Reference Interval Normal >/= 90 mL/min/1.73m2 Mildly decreased* 60 - 89 mL/min/1.73m2 Mildly to moderately decreased 45 - 59 mL/min/1.73m2 Moderately to severely decreased 30 - 44 mL/min/1.73m2 Severely decreased 15 - 29 mL/min/1.73m2 Kidney Failure < 15 mL/min/1.73m2 *Relative to young adult level Estimated glomerular filtration rate is determined by the 2020 CKD-EPI equation recommended by the National Kidney Foundation (A Unifying Approach to GFR Estimation: Recommendations of the NKF-ASK Task Force on Reassessing the Inclusion of Race in Diagnosing Kidney Disease, JASN 2020). The CKD-EPI equation should not be used for patients with unstable renal function and has not been validated in children and those over 70. Current interpretive data was last reviewed 2021. Blood 12/25/2024 8:01 PM CDT 12/25/2024 8:33 PM CDT us Debra Cagle MD LAB BLOOD ORDERABLES Final R esult [facility] Department [place] [address] * (ABNORMAL) CBC without differential (12/25/2024 8:01 PM CDT) WBC 9.16 3.80 - 9.90 K/cumm Hgb 8.7(L) 11.9 - 15.5 g/dL [facility] Comment:Hemoglobin delta due to surgical procedure. Hct 25.1(L) 35.6 - 45.5 % [facility] Plt 246 150 - 400 K/cumm [facility] MPV 10.2 9.1 - 12.3 fL [facility] RBC 3.05(L) 3.90 - 5.20 M/cumm [facility] MCV 82.3 81.3 - 96.4 fL [facility] MCH 28.5 27.1 - 33.3 pg [facility] MCHC 34.7 32.3 - 35.7 g/dL [facility] RDW CV 17.0(H) 11.1 - 14.9 % [facility] RDW SD 50.4(H) 35.7 - 48.1 fL [facility] NRBC abs 0.00 0.00 - 0.01 K/cumm [facility] Blood 12/25/2024 8:01 PM CDT 12/25/2024 8:33 PM CDT us Debra Cagle MD LAB BLOOD ORDERABLES Final R esult Performing Organization Address City/[facility]/ZIP Co de Phone Number [facility] Department [place] [address] * Phosphorus (12/25/2024 8:01 PM CDT) Phosphorus, pl 3.4 2.3 - 4.5 mg/dL Blood 12/25/2024 8:01 PM CDT 12/25/2024 8:33 PM CDT us Debra Cagle MD LAB BLOOD ORDERABLES Final R esult [facility] [employer] [place] [address] * Magnesium (12/25/2024 8:01 PM CDT) Magnesium 1.5 1.4 - 2.5 mg/dL Blood 12/25/2024 8:01 PM CDT 12/25/2024 8:33 PM CDT Debra Cagle MD LAB BLOOD ORDERABLES Final R esult Performing Organization Address City/[facility]/ZIP Co de Phone Number [facility] [place] [address] * (ABNORMAL) Basic metabolic panel (12/25/2024 8:01 PM CDT) [facility] Sodium 136 135 - 145 mmol/L Potassium, pl 4.1 3.3 - 4.9 mmol/L [facility] Chloride 105 97 - 110 mmol/L [facility] CO2 25 22 - 32 mmol/L [facility] Anion gap 6 2 - 15 mmol/L [facility] BUN 10 6 - 25 mg/dL [facility] Creatinine 0.35(L) 0.60 - 1.10 mg/dL [facility] Glucose 132 70 - 199 mg/dL [facility] Comment: Interpretive Data Fasting glucose >/= 126 mg/dl is diagnostic for diabetes. Fasting is defined as no caloric intake for at least 8 hours. Fasting glucose between 100 mg/dl to 125 mg/dl is diagnostic of prediabetes. In a patient with classic symptoms of hyperglycemia or hyperglycemic crisis, a random glucose >/= 200 mg/dl is diagnostic for diabetes. In the absence of unequivocal hyperglycemia, results should be confirmed by repeat testing. The classification and Diagnosis of Diabetes Diabetes Care 2021; 46: S19-S40. Current interpretive data was last revised 2022. Calcium 8.5 8.5 - 10.3 mg/dL [facility] Blood 12/25/2024 8:01 PM CDT 12/25/2024 8:33 PM CDT Debra Cagle MD LAB BLOOD ORDERABLES Final R esult Performing Organization Address [facility]/ZIP Co de Phone Number [facility] Department [place] [employer] [place] [address] * (ABNORMAL) POC Blood Gas and Chemistries, Arterial - (12/25/2024 11:08 AM CDT) pH, Art POC 7.35 7.35 - 7.45 pCO2, Art POC 36 35 - 45 mmHg [facility] pO2, Art POC 225(H) 83 - 108 mmHg [facility] Na, POC 136 135 - 145 mmol/L [facility] K POC 3.9 3.3 - 4.9 mmol/L [facility] Comment: Interpretive Data Not all point of care methods assess for hemolysis. Confirm with instrument and retest K+ if not consistent with clinical signs and symptoms. Current Interpretive Data was last revised on 2023. Cl, POC 109 97 - 110 mmol/L [facility] Ionized Ca, POC 4.57 4.50 - 5.10 mg/dL [facility] Glucose, POC 181 70 - 199 mg/dL [facility] Lactate POC 1.3 0.7 - 2.0 mmol/L [facility] SO2 (yash) arterial 99(H) 90 - 95 % [facility] Base excess, POC -5.2 mmol/L [facility] Hct, POC 29.0(L) 36.3 - 45.3 % [facility] Total Hb, POC 9.8(L) 11.9 - 15.5 g/dL [facility] Blood 12/25/2024 11:0 8 AM CDT 12/25/2024 11:08 AM CDT us Debra Cagle MD LAB POCT ORDERABLES - DEVICE Final Result [facility] One [facility] [place] [address] * Surgical pathology (12/25/2024 11:04 AM CDT) Small bowel, resection for tumor 12/25/2024 11:04 AM CDT 12/25/2024 11:25 AM CDT Narrative 12/31/2024 3:16 PM CDT EPIC results best viewed via link to PDF [facility] [place] [address] Note to Patients: This report may contain a detailed description of human tissue sent by a health care provider to the laboratory for pathologic evaluation. The content of this report is essential for diagnosis and may provide important critical findings. This information may be unfamiliar to patients to review without a medical professional present. It is advised that the patient review this report in the presence of a health care provider who can answer questions and explain the details. SURGICAL PATHOLOGY REPORT FINAL Patient Name: JOHNY GLORIA Gender: F : 1960 (Age: 64) Address: [address] [place] [address] Hospital #: [id number] Taken:12/25/2024 Received:12/25/2024 Reported: 12/31/2024 Patient Type: [facility] Inpatient Service: Surgery Location: [place] [address] Physician(s): MD Estephanie Boswell MD David Yablonsky, DO Diagnosis: A. 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 - Tumor measures 2.4 cm in maximal dimension - Mitotic activity: <2 per 2 mm2 - Ki67 index: <3% - Tumor infiltrating through the muscularis propria and focally involves the serosa - Lymphovascular invasion present - Perineural invasion present - Mesenteric mass (>2.0 cm): present (1), size 3.5 cm - Small mesenteric mass (< 2.0 cm): present (3) in this specimen, entire case 4 (including part B) - Two of 15 lymph nodes positive for tumor (2/15) in this specimen; entire case 2/16 (including part B) - Radial margin is focally positive for tumor; see comment - Proximal and distal margins free of tumor - Tumor metastasizes to serosa of the appendix - Pathologic stage (AJCC 8th edition): [id number]; see comment - Marked small bowel kinking at the tumor site (clinical history of bowel obstruction) - Small bowel proximal to tumor shows chronic ischemic mucosal injury (clinical history of bowel obstruction) - Appendix with fibrous obliteration - Cecum with mild serosal fibrous adhesions, negative for malignancy B. Mesenteric lymph node, excision: - One lymph node, negative for tumor (0/1); see comment - One tumor deposit (1.7 cm) C. Omentum, resection: - Metastatic well differentiated low-grade neuroendocrine tumor, innumerable (size from 0.1 to 1 cm) D. Additional small bowel and colon, resection: - Small bowel and colon segments with mild ischemic injury (likely due to long surgery/procedure) - Negative for malignancy xl12/31/2024 15:16 By this signature, I attest that the above diagnosis is based upon my personal examination of the slides(and/or other material indicated in the diagnosis). Lani Mcallister MD Report Electronically Reviewed and Signed Out By Lani Mcallister MD 12/31/2024 15:16:57 Diagnosis Comment A. There is proliferation of monotonous epithelial cells which have abundant granular cytoplasm and fine p epper and salt chromatin. There is no tumor necrosis. Mitotic activity is less than 2 mitotic figures/mm2. Ki67 index in the tumor is <3%. The tumor cells are strongly and diffusely positive for pancytokeratin, chromogranin, and synaptophysin. The overall features support the diagnosis of well differentiated neuroendocrine tumor, WHO 2019 grade 1 out of 3. Pentagram stain and VVG stain performed on blocks A13 and A14 show large vein invasion. The radial margin is focally positive for tumor as highlighted by immunostain for synaptophysin and deep levels (block A11). B. Immunostain for pancytokeratin doesn't reveal evidence of metastasis in the lymph node. 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 Operative procedure: resection small-bowel. Specimen(s) Received: A: Ileosecectomy B: mesenteric lyph node C: Omentum D: Additional small bowel and colon Gross Description: Received in four formalin jars labeled with the patient's identifiers. A. Designated ileocecectomy is an ileocecectomy specimen; the resected small bowel segment is in two parts which are connected by the mesenteric fat. The proximal lengthy segment of small bowel measures up to 60 cm in length and ranges in diameter from 3 cm at the most proximal aspect up to 5.5 cm in diameter at the stapled distal aspect. Immediately adjacent to the long proximal segment is an additional long segment of bowel measuring up to 50 cm in length from the proximal stapled margin to the ileocecal valve, and ranging in diameter from 2 cm at the distal aspect up to 5.5 cm of the proximal aspect. Again, both small bowel segments are connected with contiguous mesenteric fat. There is a stricture in the distal segment of small bowel, tagged with a black suture designated small bowel mass per the accompanying requisition. The tagged small bowel mass is located 25 cm from the ileocecal valve. Attached to the distal segment of small bowel is a short segment of cecum up to 4.5 cm in length and 4.5 cm in diameter. Also identified is an apparently previously ligated distal appendix/stump which measures up to 3 cm in length from the proximal blind end to the intact distal tip and up to 0.6 cm in diameter. The appendiceal serosa is tomlin-chapman smooth, glistening with three serosal cysts/nodules ranging from 0.1 cm up to 0.3 cm. The segments of bowel are opened longitudinally. The proximal bowel segment displays mottled chapman-tomlin, glistening and normally folded mucosa. The distal bowel segment with the tagged mass displays similar mottled and normally folded mucosa save for the tagged mass. The mass measures up to 2.4 x 2.0 x 1.1 cm and is indurated, chapman-tomlin and well-circumscribed with raised borders. The puckered serosa associated with the mass is inked blue and the adjacent mesenteric/radial margin is inked black. The cecal mucosa is chapman-tomlin, soft and normally folded. No discrete lesion is identified in the cecum. Sections through the distal appendix/stump find a pinpoint lumen. Sections through the tagged small bowel mass find dull tomlin-pale yellow cut surfaces. The mass grossly appears to invade into but not through the underlying muscularis propria. Also identified in the mesentery between the two small bowel segments is a firm, bulging, 3.5 x 2.4 x 2.2 cm nodule which comes to within 0.1 cm of the black inked radial margin (A13-A14) and several adjacent smaller nodules (0.2-0.6 cm) at the black inked radial margin (A15). The small bowel mesentery is searched for lymph nodes revealing multiple nodes ranging from 0.2 cm to 1.0 cm. [employer] sections are submitted as follows: A1 = most proximal small bowel segment, proximal stapled margin, en face; A2 = most proximal small bowel segment, stapled distal margin, en face; A3 = distal small bowel segment stapled proximal margin, en face; A4 = cecum, stapled distal margin, en face; A5 = cecal pouch approximating apparent appendiceal orifice; A6 = appendix, perpendicularly bisected proximal blind end; A7 = appendix cross sections and longitudinally bisected distal tip (entire appendix submitted); A8-12 = site safety representative tagged small bowel mass including closest approach to serosa and black inked radial margin; A13-A14 = site safety representative larger mesenteric nodule perpendicular to black inked radial margin; A15 = smaller mesenteric nodules adjacent to larger mesenteric mass, en face; A16 = one serially sectioned node; A17 = one bisected node; A18-A19 = each contains five intact putative nodes. Jar 4. B. Designated mesenteric lymph node is a 1.7 x 1.2 x 0.6 cm fragment of irregular, cautery roughened and lobular tomlin-chapman tissue. The specimen is longitudinally bisected and submitted in B1. Jar 0. C. Designated omentum is a 32 x 9 x 1.7 cm portion of finely lobulated yellow-chapman adipose consistent with omentum. No discrete surface lesion or nodularity is grossly identified. Sections through the tissue find innumerable small white-pale chapman nodules ranging from 0.1 cm up to 1.0 cm. [employer] sections are submitted in C1-5. Jar 2. D. Designated additional small bowel and colon is an apparent short segment of small bowel (4.5 cm in length, 3.5 cm in diameter) with an adjacent apparent short segment of colon up to 4.5 cm in length and 4 cm in diameter. The bowel and colon are connected with an apparent [id number] anastomosis with embedded blue sutures and yves. The small bowel segment has two stapled margins, one of the stapled margins is oversewn with blue suture material. The larger bowel segment has one stapled margin and an opposite blind end with embedded sutures. The bowel is opened longitudinally revealing red-tomlin and folded mucosa. No discrete mucosal lesions are identified. No serosal lesion is identified and no discrete nodule is identified within the attached pericolonic fat. Sections are submitted as follows: D1 = apparent small bowel stapled margin, en face; D2 = stapled and sutured apparent small-bowel margin, en face; D3 = stapled apparent colon margin, en face; D4 = site safety representative anastomosis. Jar 2. sxv/12/26/2024 11:34 PA(s): Bernardo Cash MS, PA ([facility])CM CANCER CASE SUMMARY FOR NEUROENDOCRINE TUMORS OF THE JEJUNUM AND ILEUM Procedure: Ileocolic resection Tumor site: Ileum Tumor size: Greatest dimension: 2.4 cm Tumor focality: Unifocal Histologic type and grade: G1: Well-differentiated neuroendocrine tumor Mitotic rate: <2 mitoses/2 mm2 Ki-67 labeling index: <3% Tumor extension: Tumor penetrates visceral peritoneum (serosa) Margins: Proximal Margin: Uninvolved by tumor Distal margin: Uninvolved by tumor Radial or Mesenteric Margin: Involved by tumor Lymphovascular invasion: Present Perineural invasion: Present Large Mesenteric Masses (>2 cm): Present Number identified:1 Additional pathologic findings: Other: Kinking of small bowel wall at tumor site with chronic small bowel ischemic injury Regional lymph nodes: Number of Lymph Nodes Involved: 2 Number of Lymph Nodes Examined: 16 Pathologic stage classification (pTNM, AJCC 8th Edition): Primary tumor (pT): Primary tumor (pT): pT4: Invades visceral peritoneum (serosa) or other organs or adjacent structures Regional lymph nodes (pN): Regional lymph nodes (pN): pN2: Large mesenteric masses (>2 cm) and/or extensive skye deposits (12 or greater), especially those that encase the superior mesenteric vessels Distant metastasis (pM): Distant metastasis (pM): pM1c: Both hepatic and extrahepatic metastases The pathologic stage assigned here should be regarded as provisional, and may change after integration of clinical data not provided with this specimen. By this signature, I attest that the above diagnosis is based upon my personal examination of the slides(and/or other material). Addenda/Procedures The performance characteristics of some immunohistochemical stains, fluorescence in-situ hybridization tests and immunophenotyping by flow cytometry cited in this report (if any) were determined by the Surgical Pathology and Flow Cytometry Departments at [facility] as part of an ongoing manager quality systems program and in compliance with federally mandated regulations drawn from the Clinical Laboratory Improvement Act of 1988 (CLIA '88). Some of these tests rely on the use of analyte specific reagents and are subject to specific labeling requirements by the US Food and Drug Administration. Such diagnostic tests may only be performed in a facility that is certified by the Department of Health and Human Services as a high complexity laboratory under CLIA '88. The FDA has determined that such clearance or approval is not necessary. This test is used for clinical purposes. It should not be regarded as investigational or for research. Nevertheless, federal rules concerning the medical use of analyte specific reagents require that the following disclaimer be attached to the report: This test was developed and its performance characteristics determined by the Surgical Pathology and Flow Cytometry Departments of [facility]. It has not been cleared or approved by the U. S. Food and Drug Administration. IMAGES AND SCANNED DOCUMENTS, IF INCLUDED, ONLY VIEWABLE IN PDF VERSION OF REPORT us Debra Cagle MD LAB PATHOLOGY ORDERABLES Fin al Result * Cytology (12/25/2024 10:09 AM CDT) Fluid (Peritoneal (Cytology)) 12/25/2024 10:09 AM CDT Narrative PATHOLOGY [facility] - 12/26/2024 4:55 PM CDT EPIC results best viewed via link to PDF [facility] [place] [address] Note to Patients: This report may contain a detailed description of human tissue sent by a health care provider to the laboratory for pathologic evaluation. The content of this report is essential for diagnosis and may provide important critical findings. This information may be unfamiliar to patients to review without a medical professional present. It is advised that the patient review this report in the presence of a health care provider who can answer questions and explain the details. CYTOPATHOLOGY REPORT FINAL Patient Name: JOHNY GLORIA Gender: F : 1960 (Age: 64) Address: [address] [place] [id number] Hospital #: [id number] Taken:12/25/2024 Received:12/25/2024 Reported: 12/26/2024 Patient Type: [facility] Inpatient Service: Surgery Location: [facility] [address] Physician(s): MD David Boswell DO FINAL DIAGNOSIS A. Peritoneal fluid: - Negative for malignancy Comments The cell block confirms the diagnosis. norris/12/26/2024 11:28 By this signature, I attest that the above diagnosis is based upon my personal examination of the slides(and/or other material indicated in the diagnosis). Judd Montiel DO Report Electronically Reviewed and Signed Out By Judd Montiel DO 12/26/2024 16:55:18 Camryn Schmid, [place](ASCP) Gross Description A. Peritoneal fluid: 20 ml yellow fluid - 1 Pap stained ThinPrep, 1 Pap stained cytospin, 1 Diff-Quik stained cytospin, and cell block. (ep) Clinical Diagnosis and History The patient is a 64 year old female with neuroendocrine carcinoma metastatic to liver, small bowel obstruction. REPORT IMAGES AND SCANNED DOCUMENTS, IF INCLUDED, ONLY VIEWABLE IN PDF VERSION OF REPORT The performance characteristics of some immunohistochemical stains, in-situ hybridization and fluorescence in-situ hybridization tests and immunophenotyping by flow cytometry cited in this report (if any) were determined by the Surgical Pathology and Flow Cytometry Departments at [facility] as part of an ongoing manager quality systems program and in compliance with federally mandated regulations drawn from the Clinical Laboratory Improvement Act of 1988 (CLIA '88). Some of these tests rely on the use of analyte specific reagents and are subject to specific labeling requirements by the US Food and Drug Administration. Such diagnostic tests may only be performed in a facility that is certified by the Department of Health and Human Services as a high complexity laboratory under CLIA '88. The FDA has determined that such clearance or approval is not necessary. This test is used for clinical purposes. It should not be regarded as investigational or for research. Nevertheless, federal rules concerning the medical use of analyte specific reagents require that the following disclaimer be attached to the report: This test was developed and its performance characteristics determined by the Surgical Pathology and Flow Cytometry Departments of [facility]. It has not been cleared or approved by the U. S. Food and Drug Administration. Debra Cagle MD LAB CYTOLOGY ORDERABLES Sunitha l Result PATHOLOGY [facility] 3rd Floor [place], [place] [phone] * AK AN PROCEDURE PLACEHOLDER (12/25/2024 9:56 AM CDT) Narrative Leonarda Benito CRNA - 12/25/2024 9:56 AM CDT Leonarda Benito CRNA 12/25/2024 9:56 AM Arterial Line Patient location: OR Indication: continuous blood pressure monitoring Ultrasound assisted: yes Staff: Placed by: Anesthesiologist: Te Wilson MD Procedure prep: Prep solution: chlorhexadine/alcohol Prep: provider hat/mask Arterial line: Catheter size: 20 gauge Catheter type: wire-guided catheter Laterality: right Site: radial artery Line secured: Tegaderm and tape Results: good waveform and good blood return Number of attempts: 1 Assessment: Events: patient tolerated procedure well with no complications us Te Wilson MD ANESTHESIA ORDERABLES Sunitha l Result * AK AN PROCEDURE PLACEHOLDER (12/25/2024 9:55 AM CDT) Leonarda Hernandez CRNA - 12/25/2024 9:55 AM CDT Leonarda Benito CRNA 12/25/2024 9:56 AM Peripheral IV Catheter Patient location: OR Staff: Placed by: PROGRAM AIDE: Leonarda Benito CRNA Preprocedure prep: Prep solution: chlorhexadine PPE: gloves and provider hat/mask PIV line: Laterality: left Site: wrist Catheter size: 16 g Technique: direct visualization Procedure details: good blood return and occlusive dressing applied Number of attempts: 1 Assessment: Events: patient tolerated procedure well with no complications Te Wilson MD ANESTHESIA ORDERABLES Sunitha l Result * AK AN ELECTIVE ENDOTRACHEAL AIRWAY, AK AN PROCEDURE PLACEHOLDER (12/25/2024 9:53 AM CDT) Leonarda Hernandez CRNA - 12/25/2024 9:53 AM CDT Leonarda Benito CRNA 12/25/2024 9:55 AM Airway Patient location: OR Urgency: elective Date/time: 12/25/2024 9:29 AM Indications for airway management: anesthesia Difficult airway: no Staff: Supervising provider: Te Wilson MD Placed by: PROGRAM AIDE: Leonarda Benito CRNA Emergent airway documentation: Risks and benefits discussed: yes Consent obtained: yes Consent given by: patient Airway prep: Preoxygenated: yes Patient position: sniffing Mask difficulty assessment: 0 - not attempted Spontaneous ventilation during airway: absent Sedation level during airway: GA Final airway details: Final airway type: endotracheal airway Tube type: ETT ETT size: 7.0 mm Cuffed: yes Technique used for successful ETT placement: video laryngoscopy Devices/Methods used in placement: stylet Insertion site: oral Blade type: Ivett Video blade type: Costa Blade size: 3 Cormack-Lehane (video): grade I - full view of glottis Cuff inflated with: air ETT to lips: 22 cm Placement verified by: auscultation and CO2 detection Airway secured with: silk tape Number of attempts: 1 Additional comments: Lips and dentition unchanged from preop assessment us Te Wilson MD ANESTHESIA ORDERABLES Sunitha l Result * eGFR (12/25/2024 8:18 AM CDT) eGFR >90 >=60 mL/min/1. 73 m2 Comment: Interpretive Data Reference Interval Normal >/= 90 mL/min/1.73m2 Mildly decreased* 60 - 89 mL/min/1.73m2 Mildly to moderately decreased 45 - 59 mL/min/1.73m2 Moderately to severely decreased 30 - 44 mL/min/1.73m2 Severely decreased 15 - 29 mL/min/1.73m2 Kidney Failure < 15 mL/min/1.73m2 *Relative to young adult level Estimated glomerular filtration rate is determined by the 2020 CKD-EPI equation recommended by the National Kidney Foundation (A Unifying Approach to GFR Estimation: Recommendations of the NKF-ASK Task Force on Reassessing the Inclusion of Race in Diagnosing Kidney Disease, JASN 2020). The CKD-EPI equation should not be used for patients with unstable renal function and has not been validated in children and those over 70. Current interpretive data was last reviewed 2021. Blood 12/25/2024 8:18 AM CDT 12/25/2024 8:27 AM CDT us Debra Cagle MD LAB BLOOD ORDERABLES Final R esult [facility] Department [place] [address] * (ABNORMAL) Differential, auto (12/25/2024 8:18 AM CDT) Neutrophil abs 6.49 1.50 - 6.50 K/cumm Imm gran abs 0.05 0.00 - 0.10 K/cumm [facility] Lymphocyte abs 0.96 0.80 - 3.30 K/cumm [facility] Monocyte abs 0.88(H) 0.20 - 0.80 K/cumm [facility] Eosinophil abs 0.02 0.00 - 0.50 K/cumm [facility] Basophil abs 0.04 0.00 - 0.10 K/cumm [facility] Neutrophil pct 76.9 % [facility] Comment: Interpretive Data Percent cell count reference ranges are not reported, since discordance with absolute values may lead to misinterpretation of CBC data. Current Interpretive Data was last revised on 2017. Imm gran pct 0.6 % [facility] Comment: Interpretive Data Percent cell count reference ranges are not reported, since discordance with absolute values may lead to misinterpretation of CBC data. Current Interpretive Data was last revised on 2017. Lymphocyte pct 11.4 % [facility] Comment: Interpretive Data Percent cell count reference ranges are not reported, since discordance with absolute values may lead to misinterpretation of CBC data. Current Interpretive Data was last revised on 2017. Monocyte pct 10.4 % [facility] Comment: Interpretive Data Percent cell count reference ranges are not reported, since discordance with absolute values may lead to misinterpretation of CBC data. Current Interpretive Data was last revised on 2017. Eosinophil pct 0.2 % [facility] Comment: Interpretive Data Percent cell count reference ranges are not reported, since discordance with absolute values may lead to misinterpretation of CBC data. Current Interpretive Data was last revised on 2017. Basophil pct 0.5 % [facility] Comment: Interpretive Data Percent cell count reference ranges are not reported, since discordance with absolute values may lead to misinterpretation of CBC data. Current Interpretive Data was last revised on 2017. Blood 12/25/2024 8:18 AM CDT 12/25/2024 8:27 AM CDT Debra Cagle MD LAB BLOOD ORDERABLES Final R esult [facility] Department [place] [address] * (ABNORMAL) CBC with auto differential (12/25/2024 8:18 AM CDT) WBC 8.44 3.80 - 9.90 K/cumm Hgb 12.2 11.9 - 15.5 g/dL [facility] Hct 36.1 35.6 - 45.5 % [facility] Plt 365 150 - 400 K/cumm [facility] MPV 9.6 9.1 - 12.3 fL [facility] RBC 4.38 3.90 - 5.20 M/cumm [facility] MCV 82.4 81.3 - 96.4 fL [facility] MCH 27.9 27.1 - 33.3 pg [facility] MCHC 33.8 32.3 - 35.7 g/dL [facility] RDW CV 17.0(H) 11.1 - 14.9 % [facility] RDW SD 50.4(H) 35.7 - 48.1 fL [facility] NRBC abs 0.00 0.00 - 0.01 K/cumm [facility] Blood 12/25/2024 8:18 AM CDT 12/25/2024 8:27 AM CDT us Debra Cagle MD LAB BLOOD ORDERABLES Final R esult Performing Organization Address [facility] de Phone Number [facility] [place] [address] * Protime-INR (12/25/2024 8:18 AM CDT) PT 12.1 9.7 - 13.0 sec INR 1.12 0.90 - 1.20 [facility] Comment: Interpretive data Oral anticoagulant therapeutic ranges: Venous thromboembolism prophylaxis or treatment: 2.0-3.0 CARDIOLOGY Standard range: 2.0-3.0 High-intensity range: 2.5-3.5 Refer to indication-specific guidelines for appropriate target ranges for prosthetic heart valve replacement. Current interpretive data was last revised on 2019. Blood 12/25/2024 8:18 AM CDT 12/25/2024 8:28 AM CDT us Debra Cagle MD LAB BLOOD ORDERABLES Final R esult Performing Organization Address [facility] de Phone Number [facility] Department [place] [address] * (ABNORMAL) Comprehensive metabolic panel (12/25/2024 8:18 AM CDT) Sodium 138 135 - 145 mmol/L Potassium, pl 4.5 3.3 - 4.9 mmol/L [facility] [place] 104 97 - 110 mmol/L [facility] CO2 24 22 - 32 mmol/L [facility] Anion gap 10 2 - 15 mmol/L [facility] BUN 19 6 - 25 mg/dL [facility] Creatinine 0.38(L) 0.60 - 1.10 mg/dL [facility] Glucose 155 70 - 199 mg/dL [facility] Comment: Interpretive Data Fasting glucose >/= 126 mg/dl is diagnostic for diabetes. Fasting is defined as no caloric intake for at least 8 hours. Fasting glucose between 100 mg/dl to 125 mg/dl is diagnostic of prediabetes. In a patient with classic symptoms of hyperglycemia or hyperglycemic crisis, a random glucose >/= 200 mg/dl is diagnostic for diabetes. In the absence of unequivocal hyperglycemia, results should be confirmed by repeat testing. The classification and Diagnosis of Diabetes Diabetes Care 2021; 46: S19-S40. Current interpretive data was last revised 2022. Calcium 8.9 8.5 - 10.3 mg/dL [facility] Bilirubin, total 0.4 0.1 - 1.2 mg/dL [facility] Protein, pl 6.6 6.5 - 8.5 g/dL [facility] Albumin 3.4(L) 3.5 - 5.0 g/dL [facility] Alk phos 99 40 - 130 Units/L [facility] ALT 108(H) 7 - 45 Units/L [facility] AST 72(H) 10 - 45 Units/L [facility] Blood 12/25/2024 8:18 AM CDT 12/25/2024 8:27 AM CDT us Debra Cagle MD LAB BLOOD ORDERABLES Final R esult Performing Organization Address [facility] de Phone Number [facility] Department [place] [address] * TYPE AND SCREEN 14 DAY (12/21/2024 2:31 PM CDT) Myra, indirect Negative ABO Rh A Negative [facility] Blood 12/21/2024 2:31 PM CDT 12/21/2024 2:53 PM CDT Narrative [facility] - 12/21/2024 3:55 PM CDT Has the patient had Daratumumab or Isatuximab in the past 6 months?->No Is this test being ordered in advance for a procedure?->Yes Expected date of procedure:->12/25/24 Has the patient been transfused in the past 3 months?->No Has the patient been in the past 3 months?->No us Neelam Hicks NP LAB BLOOD BANK TEST ORDERA BLES Final Result Performing Organization Address [facility]/ZIP Co de Phone Number [facility] Department [place] [address] * (ABNORMAL) POCT glucose (12/19/2024 8:06 AM CDT) Glucose, POC 219(H) 70 - 199 mg/dL Blood 12/19/2024 8:06 AM CDT 12/19/2024 8:06 AM CDT us Debra Cagle MD LAB POCT ORDERABLES - DEVICE Final Result Performing Organization Address [facility] de Phone Number [facility] [place] [address] * eGFR (12/19/2024 6:14 AM CDT) eGFR >90 >=60 mL/min/1. 73 m2 Comment: Interpretive Data Reference Interval Normal >/= 90 mL/min/1.73m2 Mildly decreased* 60 - 89 mL/min/1.73m2 Mildly to moderately decreased 45 - 59 mL/min/1.73m2 Moderately to severely decreased 30 - 44 mL/min/1.73m2 Severely decreased 15 - 29 mL/min/1.73m2 Kidney Failure < 15 mL/min/1.73m2 *Relative to young adult level Estimated glomerular filtration rate is determined by the 2020 CKD-EPI equation recommended by the National Kidney Foundation (A Unifying Approach to GFR Estimation: Recommendations of the NKF-ASK Task Force on Reassessing the Inclusion of Race in Diagnosing Kidney Disease, JASN 2020). The CKD-EPI equation should not be used for patients with unstable renal function and has not been validated in children and those over 70. Current interpretive data was last reviewed 2021. Blood 12/19/2024 6:14 AM CDT 12/19/2024 6:22 AM CDT us Debra Cagle MD LAB BLOOD ORDERABLES Final R esult Performing Organization Address [facility]/[place]/[facility] Co de Phone Number [facility] Department [place] [address] * Phosphorus (12/19/2024 6:14 AM CDT) [facility] Phosphorus, pl 3.5 2.3 - 4.5 mg/dL Blood 12/19/2024 6:14 AM CDT 12/19/2024 6:22 AM CDT Estephanie Goldstein MD LAB BLOOD ORDERABLES Fi nal Result Performing Organization Address [facility] Co de Phone Number [facility] [place] [address] * Magnesium (12/19/2024 6:14 AM CDT) [facility] Magnesium 2.2 1.4 - 2.5 mg/dL Blood 12/19/2024 6:14 AM CDT 12/19/2024 6:22 AM CDT Estephanie Goldstein MD LAB BLOOD ORDERABLES Fi nal Result Performing Organization Address [facility] Co de Phone Number [facility] [place] [address] * (ABNORMAL) Basic metabolic panel (12/19/2024 6:14 AM CDT) [facility] Sodium 136 135 - 145 mmol/L Potassium, pl 4.2 3.3 - 4.9 mmol/L [facility] [place] 104 97 - 110 mmol/L [facility] CO2 26 22 - 32 mmol/L [facility] Anion gap 6 2 - 15 mmol/L [facility] BUN 17 6 - 25 mg/dL [facility] Creatinine 0.39(L) 0.60 - 1.10 mg/dL [facility] Glucose 178 70 - 199 mg/dL [facility] Comment: Interpretive Data Fasting glucose >/= 126 mg/dl is diagnostic for diabetes. Fasting is defined as no caloric intake for at least 8 hours. Fasting glucose between 100 mg/dl to 125 mg/dl is diagnostic of prediabetes. In a patient with classic symptoms of hyperglycemia or hyperglycemic crisis, a random glucose >/= 200 mg/dl is diagnostic for diabetes. In the absence of unequivocal hyperglycemia, results should be confirmed by repeat testing. The classification and Diagnosis of Diabetes Diabetes Care 2021; 46: S19-S40. Current interpretive data was last revised 2022. Calcium 8.2(L) 8.5 - 10.3 mg/dL [facility] Blood 12/19/2024 6:14 AM CDT 12/19/2024 6:22 AM CDT us Debra Cagle MD LAB BLOOD ORDERABLES Final R esult Performing Organization Address [facility] de Phone Number [facility] Department [place] [address] * (ABNORMAL) POCT glucose (12/19/2024 4:05 AM CDT) Glucose, POC 234(H) 70 - 199 mg/dL Blood 12/19/2024 4:05 AM CDT 12/19/2024 4:05 AM CDT us Debra Cagle MD LAB POCT ORDERABLES - DEVICE Final Result Performing Organization Address [facility] de Phone Number [facility] Department [place] [address] * POCT glucose (12/18/2024 11:19 PM CDT) Glucose, POC 114 70 - 199 mg/dL Blood 12/18/2024 11:1 9 PM CDT 12/18/2024 11:19 PM CDT us Debra Cagle MD LAB POCT ORDERABLES - DEVICE Final Result Performing Organization Address [facility] de Phone Number [facility] [place] [address] * POCT glucose (12/18/2024 7:51 PM CDT) Glucose, POC 97 70 - 199 mg/dL Blood 12/18/2024 7:51 PM CDT 12/18/2024 7:51 PM CDT us Debra Cagle MD LAB POCT ORDERABLES - DEVICE Final Result Performing Organization Address [facility] [place] [address] * POCT glucose (12/18/2024 4:19 PM CDT) [facility] Signature Glucose, POC 107 70 - 199 mg/dL Blood 12/18/2024 4:19 PM CDT 12/18/2024 4:19 PM CDT us Debra Cagle MD LAB POCT ORDERABLES - DEVICE Final Result Performing Organization Address [place]/[facility] de Phone Number [facility] [employer] [place] [address] * (ABNORMAL) POCT glucose (12/18/2024 11:48 AM CDT) [facility] Glucose, POC 247(H) 70 - 199 mg/dL Blood 12/18/2024 11:4 8 AM CDT 12/18/2024 11:48 AM CDT us Debra Cagle MD LAB POCT ORDERABLES - DEVICE Final Result Performing Organization Address [facility] Co de Phone Number [facility] [place] [address] * eGFR (12/18/2024 5:31 AM CDT) eGFR >90 >=60 mL/min/1. 73 m2 Comment: Interpretive Data Reference Interval Normal >/= 90 mL/min/1.73m2 Mildly decreased* 60 - 89 mL/min/1.73m2 Mildly to moderately decreased 45 - 59 mL/min/1.73m2 Moderately to severely decreased 30 - 44 mL/min/1.73m2 Severely decreased 15 - 29 mL/min/1.73m2 Kidney Failure < 15 mL/min/1.73m2 *Relative to young adult level Estimated glomerular filtration rate is determined by the 2020 CKD-EPI equation recommended by the National Kidney Foundation (A Unifying Approach to GFR Estimation: Recommendations of the NKF-ASK Task Force on Reassessing the Inclusion of Race in Diagnosing Kidney Disease, JASN 2020). The CKD-EPI equation should not be used for patients with unstable renal function and has not been validated in children and those over 70. Current interpretive data was last reviewed 2021. Blood 12/18/2024 5:31 AM CDT 12/18/2024 5:49 AM CDT us Debra Cagle MD LAB BLOOD ORDERABLES Final R esult Performing Organization Address [facility]/ZIP Co de Phone Number [facility] Department [place] [employer] [place] [address] * Phosphorus (12/18/2024 5:31 AM CDT) Pathologist [facility] Phosphorus, pl 3.0 2.3 - 4.5 mg/dL Blood 12/18/2024 5:31 AM CDT 12/18/2024 5:49 AM CDT Estephanie Goldstein MD LAB BLOOD ORDERABLES Fi nal Result [facility] [place] [address] * Magnesium (12/18/2024 5:31 AM CDT) Magnesium 2.2 1.4 - 2.5 mg/dL Blood 12/18/2024 5:31 AM CDT 12/18/2024 5:49 AM CDT Estephanie Goldstein MD LAB BLOOD ORDERABLES Fi nal Result Performing Organization Address [facility] Co de Phone Number [facility] Department [place] [address] * (ABNORMAL) Basic metabolic panel (12/18/2024 5:31 AM CDT) Pathologist [facility] Sodium 136 135 - 145 mmol/L Potassium, pl 4.4 3.3 - 4.9 mmol/L [facility] [place] 104 97 - 110 mmol/L [facility] CO2 26 22 - 32 mmol/L [facility] Anion gap 6 2 - 15 mmol/L [facility] BUN 18 6 - 25 mg/dL [facility] Creatinine 0.42(L) 0.60 - 1.10 mg/dL [facility] Glucose 186 70 - 199 mg/dL [facility] Comment: Interpretive Data Fasting glucose >/= 126 mg/dl is diagnostic for diabetes. Fasting is defined as no caloric intake for at least 8 hours. Fasting glucose between 100 mg/dl to 125 mg/dl is diagnostic of prediabetes. In a patient with classic symptoms of hyperglycemia or hyperglycemic crisis, a random glucose >/= 200 mg/dl is diagnostic for diabetes. In the absence of unequivocal hyperglycemia, results should be confirmed by repeat testing. The classification and Diagnosis of Diabetes Diabetes Care 202; 46: S19-S40. Current interpretive data was last revised 2022. Calcium 8.2(L) 8.5 - 10.3 mg/dL [facility] Blood 12/18/2024 5:31 AM CDT 12/18/2024 5:49 AM CDT us Debra Cagle MD LAB BLOOD ORDERABLES Final R esult Performing Organization Address [facility] Co de Phone Number [facility] Department [place] [address] * Small Bowel Challenge 10 hour Post Injection XR Abdomen Ap 1 Vw (12/18/2024 3:05 AM CDT) Anatomical Region Laterality Modality Body, Abdomen N/A Digital Radiogra phy 12/18/2024 10:0 8 AM CDT Impressions 12/18/2024 10:12 AM CDT Abdominal radiograph 12/17/2024 8:45 PM: At 4 hours, the contrast is difficult to visualize. There are multiple dilated loops of small bowel and a small amount of contrast in the colon likely representing partial small bowel obstruction versus ileus. Right upper quadrant surgical clips present. Abdominal radiograph 12/18/2024 3:03 AM: At 10 hours, the contrast is similarly difficult to visualize. There is a dilated loop of small bowel in the left lower quadrant and contrast material present in the colon likely representing partial small bowel obstruction versus ileus. Dictated by: Ijeoma Lowe M.D. The radiology attending physician has personally reviewed this study, and had reviewed and/or edited this written report and agrees with it. Electronically signed by: Misha Augustine M.D., Ph.D Narrative 12/18/2024 10:12 AM CDT EXAMINATION: Abdomen, one view. HISTORY: Evaluate partial small bowel obstruction COMPARISON: 12/17/2024 12:18 PM Procedure Note Misha Augustine MD PhD - 12/18/2024 EXAMINATION: Abdomen, one view. HISTORY: Evaluate partial small bowel obstruction COMPARISON: 12/17/2024 12:18 PM IMPRESSION: Abdominal radiograph 12/17/2024 8:45 PM: At 4 hours, the contrast is difficult to visualize. There are multiple dilated loops of small bowel and a small amount of contrast in the colon likely representing partial small bowel obstruction versus ileus. Right upper quadrant surgical clips present. Abdominal radiograph 12/18/2024 3:03 AM: At 10 hours, the contrast is similarly difficult to visualize. There is a dilated loop of small bowel in the left lower quadrant and contrast material present in the colon likely representing partial small bowel obstruction versus ileus. Dictated by: Ijeoma Lowe M.D. The radiology attending physician has personally reviewed this study, and had reviewed and/or edited this written report and agrees with it. 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 TUBE MACHINE TENDER IMG XR PROCEDURES Final Re sult * POCT glucose (12/17/2024 11:17 PM CDT) Glucose, POC 123 70 - 199 mg/dL Blood 12/17/2024 11:1 7 PM CDT 12/17/2024 11:17 PM CDT us Debra Cagle MD LAB POCT ORDERABLES - DEVICE Final Result [facility] Department [place] [address] * Small Bowel Challenge 4 hour Post Injection XR Abdomen Ap 1 Vw (12/17/2024 9:11 PM CDT) Anatomical Region Laterality Modality Body, Abdomen N/A Digital Radiogra phy 12/18/2024 10:0 8 AM CDT Impressions 12/18/2024 10:12 AM CDT Abdominal radiograph 12/17/2024 8:45 PM: At 4 hours, the contrast is difficult to visualize. There are multiple dilated loops of small bowel and a small amount of contrast in the colon likely representing partial small bowel obstruction versus ileus. Right upper quadrant surgical clips present. Abdominal radiograph 12/18/2024 3:03 AM: At 10 hours, the contrast is similarly difficult to visualize. There is a dilated loop of small bowel in the left lower quadrant and contrast material present in the colon likely representing partial small bowel obstruction versus ileus. Dictated by: Ijeoma Lowe M.D. The radiology attending physician has personally reviewed this study, and had reviewed and/or edited this written report and agrees with it. Electronically signed by: Misha Augustine M.D., Ph.D Narrative 12/18/2024 10:12 AM CDT EXAMINATION: Abdomen, one view. HISTORY: Evaluate partial small bowel obstruction COMPARISON: 12/17/2024 12:18 PM Procedure Note Misha Augustine MD PhD - 12/18/2024 EXAMINATION: Abdomen, one view. HISTORY: Evaluate partial small bowel obstruction COMPARISON: 12/17/2024 12:18 PM IMPRESSION: Abdominal radiograph 12/17/2024 8:45 PM: At 4 hours, the contrast is difficult to visualize. There are multiple dilated loops of small bowel and a small amount of contrast in the colon likely representing partial small bowel obstruction versus ileus. Right upper quadrant surgical clips present. Abdominal radiograph 12/18/2024 3:03 AM: At 10 hours, the contrast is similarly difficult to visualize. There is a dilated loop of small bowel in the left lower quadrant and contrast material present in the colon likely representing partial small bowel obstruction versus ileus. Dictated by: Ijeoma Lowe M.D. The radiology attending physician has personally reviewed this study, and had reviewed and/or edited this written report and agrees with it. 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 TUBE MACHINE TENDER IMG XR PROCEDURES Final Re sult * POCT glucose (12/17/2024 5:56 PM CDT) [facility] Glucose, POC 137 70 - 199 mg/dL Blood 12/17/2024 5:56 PM CDT 12/17/2024 5:56 PM CDT us Debra Cagle MD LAB POCT ORDERABLES - DEVICE Final Result [facility] Department [place] [address] * XR Abdomen 1 View AP (12/17/2024 12:48 PM CDT) Anatomical Region Laterality Modality Body, Abdomen N/A Digital Radiogra phy 12/17/2024 2:32 PM CDT Impressions 12/17/2024 3:28 PM CDT Cholecystectomy clips. 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 Dictated by: Hilda Craig M.D. The radiology attending physician has personally reviewed this study, and had reviewed and/or edited this written report and agrees with it. Electronically signed by: Lindy Zepeda M.D. Narrative 12/17/2024 3:28 PM CDT EXAMINATION: Abdomen, one view. HISTORY: Nausea COMPARISON: 11/05/2024 Procedure Note Lindy Zepeda MD - 12/17/2024 EXAMINATION: Abdomen, one view. HISTORY: Nausea COMPARISON: 11/05/2024 IMPRESSION: Cholecystectomy clips. 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 Dictated by: Hilda Craig M.D. The radiology attending physician has personally reviewed this study, and had reviewed and/or edited this written report and agrees with it. Electronically signed by: Lindy Zepeda M.D. us Debra Cagle MD IMG XR PROCEDURES Final Resu lt * POCT glucose (12/17/2024 11:40 AM CDT) Glucose, POC 194 70 - 199 mg/dL Blood 12/17/2024 11:4 0 AM CDT 12/17/2024 11:40 AM CDT us Debra Cagle MD LAB POCT ORDERABLES - DEVICE Final Result [facility] Department [place] [address] * POCT glucose (12/17/2024 5:37 AM CDT) Glucose, POC 179 70 - 199 mg/dL Blood 12/17/2024 5:37 AM CDT 12/17/2024 5:37 AM CDT Debra Cagle MD LAB POCT ORDERABLES - DEVICE Final Result Performing Organization Address City/[facility] Co de Phone Number [facility] [place] [address] * eGFR (12/17/2024 5:35 AM CDT) eGFR >90 >=60 mL/min/1. 73 m2 Comment: Interpretive Data Reference Interval Normal >/= 90 mL/min/1.73m2 Mildly decreased* 60 - 89 mL/min/1.73m2 Mildly to moderately decreased 45 - 59 mL/min/1.73m2 Moderately to severely decreased 30 - 44 mL/min/1.73m2 Severely decreased 15 - 29 mL/min/1.73m2 Kidney Failure < 15 mL/min/1.73m2 *Relative to young adult level Estimated glomerular filtration rate is determined by the 2020 CKD-EPI equation recommended by the National Kidney Foundation (A Unifying Approach to GFR Estimation: Recommendations of the NKF-ASK Task Force on Reassessing the Inclusion of Race in Diagnosing Kidney Disease, JASN 2020). The CKD-EPI equation should not be used for patients with unstable renal function and has not been validated in children and those over 70. Current interpretive data was last reviewed 2021. Blood 12/17/2024 5:35 AM CDT 12/17/2024 5:55 AM CDT us Debra Cagle MD LAB BLOOD ORDERABLES Final R esult Performing Organization Address City/[facility]/ZIP Co de Phone Number [facility] [place] [address] * Phosphorus (12/17/2024 5:35 AM CDT) Phosphorus, pl 3.6 2.3 - 4.5 mg/dL Blood 12/17/2024 5:35 AM CDT 12/17/2024 5:55 AM CDT us Estephanie Goldstein MD LAB BLOOD ORDERABLES Fi nal Result Performing Organization Address City/[facility]/ZIP Co de Phone Number [facility] Department [place] [address] * Magnesium (12/17/2024 5:35 AM CDT) Pathologist [facility] Magnesium 2.3 1.4 - 2.5 mg/dL Blood 12/17/2024 5:35 AM CDT 12/17/2024 5:55 AM CDT Estephanie Goldstein MD LAB BLOOD ORDERABLES Fi nal Result Performing Organization Address [facility] de Phone Number [facility] Department [place] [address] * (ABNORMAL) Basic metabolic panel (12/17/2024 5:35 AM CDT) [facility] Sodium 135 135 - 145 mmol/L Potassium, pl 4.5 3.3 - 4.9 mmol/L [facility] [place] 103 97 - 110 mmol/L [facility] CO2 25 22 - 32 mmol/L [facility] Anion gap 7 2 - 15 mmol/L [facility] BUN 19 6 - 25 mg/dL [facility] Creatinine 0.40(L) 0.60 - 1.10 mg/dL [facility] Glucose 190 70 - 199 mg/dL [facility] Comment: Interpretive Data Fasting glucose >/= 126 mg/dl is diagnostic for diabetes. Fasting is defined as no caloric intake for at least 8 hours. Fasting glucose between 100 mg/dl to 125 mg/dl is diagnostic of prediabetes. In a patient with classic symptoms of hyperglycemia or hyperglycemic crisis, a random glucose >/= 200 mg/dl is diagnostic for diabetes. In the absence of unequivocal hyperglycemia, results should be confirmed by repeat testing. The classification and Diagnosis of Diabetes Diabetes Care 2021; 46: S19-S40. Current interpretive data was last revised 2022. Calcium 8.1(L) 8.5 - 10.3 mg/dL [facility] Blood 12/17/2024 5:35 AM CDT 12/17/2024 5:55 AM CDT us Debra Cagle MD LAB BLOOD ORDERABLES Final R esult Performing Organization Address City/[facility] Co de Phone Number [facility] [place] [address] * POCT glucose (12/16/2024 11:14 PM CDT) Glucose, POC 112 70 - 199 mg/dL Blood 12/16/2024 11:1 4 PM CDT 12/16/2024 11:14 PM CDT Debra Cagle MD LAB POCT ORDERABLES - DEVICE Final Result Performing Organization Address [facility] Co de Phone Number [facility] [place] [address] * POCT glucose (12/16/2024 5:02 PM CDT) Glucose, POC 125 70 - 199 mg/dL Blood 12/16/2024 5:02 PM CDT 12/16/2024 5:02 PM CDT Debra Cagle MD LAB POCT ORDERABLES - DEVICE Final Result Performing Organization Address [facility] Co de Phone Number [facility] [place] [address] * POCT glucose (12/16/2024 11:12 AM CDT) Glucose, POC 157 70 - 199 mg/dL Blood 12/16/2024 11:1 2 AM CDT 12/16/2024 11:12 AM CDT us Debra Cagle MD LAB POCT ORDERABLES - DEVICE Final Result Performing Organization Address [facility] de Phone Number [facility] [place] [address] * Potassium, whole blood (12/16/2024 9:01 AM CDT) Potassium, bld 4.6 3.3 - 4.9 mmol/L Blood 12/16/2024 9:01 AM CDT 12/16/2024 9:11 AM CDT us Debra Cagle MD LAB BLOOD ORDERABLES Final R esult Performing Organization Address [facility] de Phone Number [facility] [place] [address] * POCT glucose (12/16/2024 5:48 AM CDT) Glucose, POC 128 70 - 199 mg/dL Blood 12/16/2024 5:48 AM CDT 12/16/2024 5:48 AM CDT us Debra Cagle MD LAB POCT ORDERABLES - DEVICE Final Result Performing Organization Address [facility] de Phone Number [facility] [place] [address] * eGFR (12/16/2024 5:44 AM CDT) eGFR >90 >=60 mL/min/1. 73 m2 Comment: Interpretive Data Reference Interval Normal >/= 90 mL/min/1.73m2 Mildly decreased* 60 - 89 mL/min/1.73m2 Mildly to moderately decreased 45 - 59 mL/min/1.73m2 Moderately to severely decreased 30 - 44 mL/min/1.73m2 Severely decreased 15 - 29 mL/min/1.73m2 Kidney Failure < 15 mL/min/1.73m2 *Relative to young adult level Estimated glomerular filtration rate is determined by the 2020 CKD-EPI equation recommended by the National Kidney Foundation (A Unifying Approach to GFR Estimation: Recommendations of the NKF-ASK Task Force on Reassessing the Inclusion of Race in Diagnosing Kidney Disease, JASN 2020). The CKD-EPI equation should not be used for patients with unstable renal function and has not been validated in children and those over 70. Current interpretive data was last reviewed 2021. Blood 12/16/2024 5:44 AM CDT 12/16/2024 6:11 AM CDT Debra Cagle MD LAB BLOOD ORDERABLES Final R esult Performing Organization Address City/[facility] Co de Phone Number [facility] [place] [address] * Phosphorus (12/16/2024 5:44 AM CDT) Phosphorus, pl 3.8 2.3 - 4.5 mg/dL Blood 12/16/2024 5:44 AM CDT 12/16/2024 6:11 AM CDT Result [facility] Estephanie Goldstein MD LAB BLOOD ORDERABLES Fi nal Result Performing Organization Address [facility] Co de Phone Number [facility] [place] [address] * Magnesium (12/16/2024 5:44 AM CDT) Magnesium 2.4 1.4 - 2.5 mg/dL Blood 12/16/2024 5:44 AM CDT 12/16/2024 6:11 AM CDT Estephanie Goldstein MD LAB BLOOD ORDERABLES Fi nal Result Performing Organization Address [facility] Co de Phone Number [facility] Department [place] [address] * (ABNORMAL) Basic metabolic panel (12/16/2024 5:44 AM CDT) Sodium 136 135 - 145 mmol/L Potassium, pl 5.2(H) 3.3 - 4.9 mmol/L [facility] Comment:Hemolyzed; Potassium value may be falsely elevated by as much as 0.3-0.5 mmol/L. Suggest redraw and reanalysis. [place] 104 97 - 110 mmol/L [facility] CO2 27 22 - 32 mmol/L [facility] Anion gap 5 2 - 15 mmol/L [facility] BUN 14 6 - 25 mg/dL [facility] Creatinine 0.42(L) 0.60 - 1.10 mg/dL [facility] Glucose 126 70 - 199 mg/dL [facility] Comment: Interpretive Data Fasting glucose >/= 126 mg/dl is diagnostic for diabetes. Fasting is defined as no caloric intake for at least 8 hours. Fasting glucose between 100 mg/dl to 125 mg/dl is diagnostic of prediabetes. In a patient with classic symptoms of hyperglycemia or hyperglycemic crisis, a random glucose >/= 200 mg/dl is diagnostic for diabetes. In the absence of unequivocal hyperglycemia, results should be confirmed by repeat testing. The classification and Diagnosis of Diabetes Diabetes Care 202; 46: S19-S40. Current interpretive data was last revised 2022. Calcium 8.5 8.5 - 10.3 mg/dL [facility] Blood 12/16/2024 5:44 AM CDT 12/16/2024 6:11 AM CDT us Debra Cagle MD LAB BLOOD ORDERABLES Final R esult [facility] Department [place] [address] * POCT glucose (12/15/2024 11:17 PM CDT) Glucose, POC 129 70 - 199 mg/dL Blood 12/15/2024 11:1 7 PM CDT 12/15/2024 11:17 PM CDT us Debra Cagle MD LAB POCT ORDERABLES - DEVICE Final Result Performing Organization Address [facility] de Phone Number [facility] [place] [address] * POCT glucose (12/15/2024 5:24 PM CDT) Glucose, POC 136 70 - 199 mg/dL Blood 12/15/2024 5:24 PM CDT 12/15/2024 5:24 PM CDT us Debra Cagle MD LAB POCT ORDERABLES - DEVICE Final Result Performing Organization Address [facility] de Phone Number [facility] [place] [address] * POCT glucose (12/15/2024 12:01 PM CDT) Glucose, POC 142 70 - 199 mg/dL Blood 12/15/2024 12:0 1 PM CDT 12/15/2024 12:01 PM CDT us Debra Cagle MD LAB POCT ORDERABLES - DEVICE Final Result Performing Organization Address [facility] [place] [address] * POCT glucose (12/15/2024 5:30 AM CDT) Glucose, POC 132 70 - 199 mg/dL Blood 12/15/2024 5:30 AM CDT 12/15/2024 5:30 AM CDT us Debra Cagle MD LAB POCT ORDERABLES - DEVICE Final Result Performing Organization Address [facility] Co de Phone Number [facility] Department [place] [address] * eGFR (12/15/2024 5:29 AM CDT) eGFR >90 >=60 mL/min/1. 73 m2 Comment: Interpretive Data Reference Interval Normal >/= 90 mL/min/1.73m2 Mildly decreased* 60 - 89 mL/min/1.73m2 Mildly to moderately decreased 45 - 59 mL/min/1.73m2 Moderately to severely decreased 30 - 44 mL/min/1.73m2 Severely decreased 15 - 29 mL/min/1.73m2 Kidney Failure < 15 mL/min/1.73m2 *Relative to young adult level Estimated glomerular filtration rate is determined by the 2020 CKD-EPI equation recommended by the National Kidney Foundation (A Unifying Approach to GFR Estimation: Recommendations of the NKF-ASK Task Force on Reassessing the Inclusion of Race in Diagnosing Kidney Disease, JASN 2020). The CKD-EPI equation should not be used for patients with unstable renal function and has not been validated in children and those over 70. Current interpretive data was last reviewed 2021. Blood 12/15/2024 5:29 AM CDT 12/15/2024 5:57 AM CDT us Debra Cagle MD LAB BLOOD ORDERABLES Final R esult Performing Organization Address [facility] Co de Phone Number [facility] Department [place] [address] * Phosphorus (12/15/2024 5:29 AM CDT) Phosphorus, pl 3.2 2.3 - 4.5 mg/dL Blood 12/15/2024 5:29 AM CDT 12/15/2024 5:57 AM CDT us Estephanie Goldstein MD LAB BLOOD ORDERABLES Fi nal Result Performing Organization Address [facility] Co de Phone Number [facility] Department [place] [address] * Magnesium (12/15/2024 5:29 AM CDT) [facility] Magnesium 2.2 1.4 - 2.5 mg/dL Blood 12/15/2024 5:29 AM CDT 12/15/2024 5:57 AM CDT Estephanie Goldstein MD LAB BLOOD ORDERABLES Fi nal Result Performing Organization Address [facility] Co de Phone Number [facility] [place] [address] * (ABNORMAL) Basic metabolic panel (12/15/2024 5:29 AM CDT) [facility] Sodium 138 135 - 145 mmol/L Potassium, pl 4.5 3.3 - 4.9 mmol/L [facility] [place] 104 97 - 110 mmol/L [facility] CO2 29 22 - 32 mmol/L [facility] Anion gap 5 2 - 15 mmol/L [facility] BUN 10 6 - 25 mg/dL [facility] Creatinine 0.46(L) 0.60 - 1.10 mg/dL [facility] Glucose 130 70 - 199 mg/dL [facility] Comment: Interpretive Data Fasting glucose >/= 126 mg/dl is diagnostic for diabetes. Fasting is defined as no caloric intake for at least 8 hours. Fasting glucose between 100 mg/dl to 125 mg/dl is diagnostic of prediabetes. In a patient with classic symptoms of hyperglycemia or hyperglycemic crisis, a random glucose >/= 200 mg/dl is diagnostic for diabetes. In the absence of unequivocal hyperglycemia, results should be confirmed by repeat testing. The classification and Diagnosis of Diabetes Diabetes Care 202; 46: S19-S40. Current interpretive data was last revised 2022. Calcium 8.4(L) 8.5 - 10.3 mg/dL [facility] Blood 12/15/2024 5:29 AM CDT 12/15/2024 5:57 AM CDT us Debra Cagle MD LAB BLOOD ORDERABLES Final R esult Performing Organization Address [facility] Co de Phone Number [facility] [place] [address] * POCT glucose (12/14/2024 11:26 PM CDT) Glucose, POC 119 70 - 199 mg/dL Blood 12/14/2024 11:2 6 PM CDT 12/14/2024 11:26 PM CDT us Debra Cagle MD LAB POCT ORDERABLES - DEVICE Final Result Performing Organization Address [facility] de Phone Number [facility] [place] [address] * POCT glucose (12/14/2024 5:01 PM CDT) Glucose, POC 127 70 - 199 mg/dL Blood 12/14/2024 5:01 PM CDT 12/14/2024 5:01 PM CDT us Debra Cagle MD LAB POCT ORDERABLES - DEVICE Final Result Performing Organization Address [facility] Co de Phone Number [facility] Department [place] [address] * POCT glucose (12/14/2024 12:51 PM CDT) Glucose, POC 143 70 - 199 mg/dL Blood 12/14/2024 12:5 1 PM CDT 12/14/2024 12:51 PM CDT us Debra Cagle MD LAB POCT ORDERABLES - DEVICE Final Result Performing Organization Address [facility] [place] [address] * (ABNORMAL) Phosphorus (12/14/2024 8:46 AM CDT) Pathologist [facility] Phosphorus, pl 7.5(H) 2.3 - 4.5 mg/dL Comment:Hemolyzed; result ma y be falsely elevated Blood 12/14/2024 8:46 AM CDT 12/14/2024 8:57 AM CDT Suzette Hunt NP LAB BLOOD [place] [address] * (ABNORMAL) Magnesium (12/14/2024 8:46 AM CDT) [facility] Magnesium 3.8(H) 1.4 - 2.5 mg/dL Blood 12/14/2024 8:46 AM CDT 12/14/2024 8:57 AM CDT Suzette Hunt NP LAB BLOOD [place] [address] * POCT glucose (12/14/2024 6:11 AM CDT) [facility] Glucose, POC 150 70 - 199 mg/dL Blood 12/14/2024 6:11 AM CDT 12/14/2024 6:11 AM CDT us Debra Cagle MD LAB POCT ORDERABLES - DEVICE Final Result [facility] [place] [address] * POCT glucose (12/14/2024 12:04 AM CDT) Glucose, POC 138 70 - 199 mg/dL Blood 12/14/2024 12:0 4 AM CDT 12/14/2024 12:04 AM CDT us Debra Cagle MD LAB POCT ORDERABLES - DEVICE Final Result Performing Organization Address City/[facility] Co de Phone Number [facility] [place] [address] * eGFR (12/13/2024 8:24 PM CDT) eGFR >90 >=60 mL/min/1. 73 m2 Comment: Interpretive Data Reference Interval Normal >/= 90 mL/min/1.73m2 Mildly decreased* 60 - 89 mL/min/1.73m2 Mildly to moderately decreased 45 - 59 mL/min/1.73m2 Moderately to severely decreased 30 - 44 mL/min/1.73m2 Severely decreased 15 - 29 mL/min/1.73m2 Kidney Failure < 15 mL/min/1.73m2 *Relative to young adult level Estimated glomerular filtration rate is determined by the 2020 CKD-EPI equation recommended by the National Kidney Foundation (A Unifying Approach to GFR Estimation: Recommendations of the NKF-ASK Task Force on Reassessing the Inclusion of Race in Diagnosing Kidney Disease, JASN 2020). The CKD-EPI equation should not be used for patients with unstable renal function and has not been validated in children and those over 70. Current interpretive data was last reviewed 2021. Blood 12/13/2024 8:24 PM CDT 12/13/2024 8:59 PM CDT us Suzette Hunt NP LAB BLOOD ORDERABLES Final Result Performing Organization Address City/[facility]/ZIP Co de Phone Number [facility] [place] [address] * Phosphorus (12/13/2024 8:24 PM CDT) [facility] Phosphorus, pl 2.9 2.3 - 4.5 mg/dL Blood 12/13/2024 8:24 PM CDT 12/13/2024 8:59 PM CDT Suzette Hunt SH[employer] T[employer] MACHINE TENDER LAB BLOOD ORDERABLES Final Result Performing Organization Address [facility] de Phone Number [facility] Department [place] [address] * Magnesium (12/13/2024 8:24 PM CDT) [facility] Magnesium 2.4 1.4 - 2.5 mg/dL Blood 12/13/2024 8:24 PM CDT 12/13/2024 8:59 PM CDT Suzette Hunt SHOT T[employer] MACHINE TENDER LAB BLOOD ORDERABLES Final Result Performing Organization Address [facility] de Phone Number [facility] [place] [address] * (ABNORMAL) Comprehensive metabolic panel (12/13/2024 8:24 PM CDT) [facility] Sodium 136 135 - 145 mmol/L Potassium, pl 3.7 3.3 - 4.9 mmol/L [facility] [place] 100 97 - 110 mmol/L [facility] CO2 27 22 - 32 mmol/L [facility] Anion gap 9 2 - 15 mmol/L [facility] BUN 11 6 - 25 mg/dL [facility] Creatinine 0.55(L) 0.60 - 1.10 mg/dL [facility] Glucose 141 70 - 199 mg/dL [facility] Comment: Interpretive Data Fasting glucose >/= 126 mg/dl is diagnostic for diabetes. Fasting is defined as no caloric intake for at least 8 hours. Fasting glucose between 100 mg/dl to 125 mg/dl is diagnostic of prediabetes. In a patient with classic symptoms of hyperglycemia or hyperglycemic crisis, a random glucose >/= 200 mg/dl is diagnostic for diabetes. In the absence of unequivocal hyperglycemia, results should be confirmed by repeat testing. The classification and Diagnosis of Diabetes Diabetes Care 2021; 46: S19-S40. Current interpretive data was last revised 2022. Calcium 8.3(L) 8.5 - 10.3 mg/dL [facility] Bilirubin, total 0.5 0.1 - 1.2 mg/dL [facility] Protein, pl 5.6(L) 6.5 - 8.5 g/dL [facility] Albumin 3.3(L) 3.5 - 5.0 g/dL [facility] Alk phos 76 40 - 130 Units/L [facility] ALT 155(H) 7 - 45 Units/L [facility] AST 56(H) 10 - 45 Units/L [facility] Blood 12/13/2024 8:24 PM CDT 12/13/2024 8:59 PM CDT us Suzette Hunt NP LAB BLOOD ORDERABLES Final Result [facility] of [employer] [place] [address] * POCT glucose (12/13/2024 5:03 PM CDT) Glucose, POC 145 70 - 199 mg/dL Blood 12/13/2024 5:03 PM CDT 12/13/2024 5:03 PM CDT us Debra Cagle MD LAB POCT ORDERABLES - DEVICE Final Result [facility] Department [place] [address] * POCT glucose (12/13/2024 11:06 AM CDT) Glucose, POC 165 70 - 199 mg/dL Blood 12/13/2024 11:0 6 AM CDT 12/13/2024 11:06 AM CDT us Debra Cagle MD LAB POCT ORDERABLES - DEVICE Final Result Performing Organization Address City/[facility] Co de Phone Number [facility] Department [place] [address] * eGFR (12/13/2024 8:38 AM CDT) eGFR >90 >=60 mL/min/1. 73 m2 Comment: Interpretive Data Reference Interval Normal >/= 90 mL/min/1.73m2 Mildly decreased* 60 - 89 mL/min/1.73m2 Mildly to moderately decreased 45 - 59 mL/min/1.73m2 Moderately to severely decreased 30 - 44 mL/min/1.73m2 Severely decreased 15 - 29 mL/min/1.73m2 Kidney Failure < 15 mL/min/1.73m2 *Relative to young adult level Estimated glomerular filtration rate is determined by the 2020 CKD-EPI equation recommended by the National Kidney Foundation (A Unifying Approach to GFR Estimation: Recommendations of the NKF-ASK Task Force on Reassessing the Inclusion of Race in Diagnosing Kidney Disease, JASN 2020). The CKD-EPI equation should not be used for patients with unstable renal function and has not been validated in children and those over 70. Current interpretive data was last reviewed 2021. Blood 12/13/2024 8:38 AM CDT 12/13/2024 9:00 AM CDT us Suzette Hunt NP LAB BLOOD ORDERABLES Final Result Performing Organization Address City/[facility]/ZIP Co de Phone Number [facility] [place] [address] * Phosphorus (12/13/2024 8:38 AM CDT) Phosphorus, pl 3.2 2.3 - 4.5 mg/dL Blood 12/13/2024 8:38 AM CDT 12/13/2024 9:00 AM CDT Suzette Hunt NP LAB BLOOD ORDERABLES Final Result [facility] Department [place] [address] * Magnesium (12/13/2024 8:38 AM CDT) Pathologist [facility] Magnesium 2.4 1.4 - 2.5 mg/dL Blood 12/13/2024 8:38 AM CDT 12/13/2024 9:00 AM CDT Suzette Hunt NP LAB BLOOD ORDERABLES Final Result Performing Organization Address [facility] de Phone Number [facility] Department [place] [address] * (ABNORMAL) Comprehensive metabolic panel (12/13/2024 8:38 AM CDT) [facility] Sodium 136 135 - 145 mmol/L Potassium, pl 3.9 3.3 - 4.9 mmol/L [facility] [place] 99 97 - 110 mmol/L [facility] CO2 29 22 - 32 mmol/L [facility] Anion gap 8 2 - 15 mmol/L [facility] BUN 10 6 - 25 mg/dL [facility] Creatinine 0.57(L) 0.60 - 1.10 mg/dL [facility] Glucose 141 70 - 199 mg/dL [facility] Comment: Interpretive Data Fasting glucose >/= 126 mg/dl is diagnostic for diabetes. Fasting is defined as no caloric intake for at least 8 hours. Fasting glucose between 100 mg/dl to 125 mg/dl is diagnostic of prediabetes. In a patient with classic symptoms of hyperglycemia or hyperglycemic crisis, a random glucose >/= 200 mg/dl is diagnostic for diabetes. In the absence of unequivocal hyperglycemia, results should be confirmed by repeat testing. The classification and Diagnosis of Diabetes Diabetes Care 2021; 46: S19-S40. Current interpretive data was last revised 2022. Calcium 8.0(L) 8.5 - 10.3 mg/dL [facility] Bilirubin, total 0.6 0.1 - 1.2 mg/dL [facility] Protein, pl 5.7(L) 6.5 - 8.5 g/dL [facility] Albumin 3.2(L) 3.5 - 5.0 g/dL [facility] Alk phos 80 40 - 130 Units/L [facility] ALT 181(H) 7 - 45 Units/L [facility] AST 75(H) 10 - 45 Units/L [facility] Blood 12/13/2024 8:38 AM CDT 12/13/2024 9:00 AM CDT us Suzette Hunt NP LAB BLOOD ORDERABLES Final Result Performing Organization Address [facility] Co de Phone Number [facility] [place] [employer] [place] [address] * POCT glucose (12/13/2024 6:00 AM CDT) Glucose, POC 133 70 - 199 mg/dL Blood 12/13/2024 6:00 AM CDT 12/13/2024 6:00 AM CDT us Debra Cagle MD LAB POCT ORDERABLES - DEVICE Final Result Performing Organization Address [facility] de Phone Number [facility] Department [place] [address] * POCT glucose (12/13/2024 12:05 AM CDT) Glucose, POC 102 70 - 199 mg/dL Blood 12/13/2024 12:0 5 AM CDT 12/13/2024 12:05 AM CDT us Debra Cagle MD LAB POCT ORDERABLES - DEVICE Final Result Performing Organization Address [facility] Co de Phone Number [facility] Department [place] [address] * eGFR (12/12/2024 10:41 PM CDT) [facility] eGFR >90 >=60 mL/min/1. 73 m2 Comment: Interpretive Data Reference Interval Normal >/= 90 mL/min/1.73m2 Mildly decreased* 60 - 89 mL/min/1.73m2 Mildly to moderately decreased 45 - 59 mL/min/1.73m2 Moderately to severely decreased 30 - 44 mL/min/1.73m2 Severely decreased 15 - 29 mL/min/1.73m2 Kidney Failure < 15 mL/min/1.73m2 *Relative to young adult level Estimated glomerular filtration rate is determined by the 2020 CKD-EPI equation recommended by the National Kidney Foundation (A Unifying Approach to GFR Estimation: Recommendations of the NKF-ASK Task Force on Reassessing the Inclusion of Race in Diagnosing Kidney Disease, JASN 2020). The CKD-EPI equation should not be used for patients with unstable renal function and has not been validated in children and those over 70. Current interpretive data was last reviewed 2021. Blood 12/12/2024 10:4 1 PM CDT 12/12/2024 11:15 PM CDT us Suzette Hunt NP LAB BLOOD ORDERABLES Final Result [facility] Department [place] [address] * (ABNORMAL) CBC without differential (12/12/2024 10:41 PM CDT) [facility] WBC 6.74 3.80 - 9.90 K/cumm Hgb 13.8 11.9 - 15.5 g/dL [facility] Hct 40.5 35.6 - 45.5 % [facility] Plt 236 150 - 400 K/cumm [facility] MPV 10.4 9.1 - 12.3 fL [facility] RBC 5.04 3.90 - 5.20 M/cumm [facility] MCV 80.4(L) 81.3 - 96.4 fL [facility] MCH 27.4 27.1 - 33.3 pg [facility] MCHC 34.1 32.3 - 35.7 g/dL [facility] RDW CV 15.3(H) 11.1 - 14.9 % [facility] RDW SD 43.6 35.7 - 48.1 fL [facility] NRBC abs 0.00 0.00 - 0.01 K/cumm [facility] Blood 12/12/2024 10:4 1 PM CDT 12/12/2024 11:15 PM CDT us Suzette Hunt SHOT TUBE MACHINE TENDER LAB BLOOD ORDERABLES Final Result Performing Organization Address City/[facility] Co de Phone Number [facility] [place] [address] * Triglycerides (12/12/2024 10:41 PM CDT) Triglycerides 93 <=149 mg/dL Comment: Interpretive Data Ages < or = 9 years Acceptable: <75 mg/dL Borderline high: 75-99 mg/dL High: >or= 100 mg/dL Ages 10 to 20 years Acceptable: <90 mg/dL Borderline high: 90-129 mg/dL High: >or= 130 mg/dL Ages > or = 20 years Desirable: <150 mg/dL Borderline high: 150-199 mg/dL High: 200-499 mg/dL Very high: >or= 499 mg/dL Literature References: 1. Expert Panel on Integrated Guidelines for Cardiovascular Health and Risk Reduction in Children and Adolescents. Pediatrics 2011;128:S213 2. NCEP Expert Panel. Circulation 2004;110:227 Current Interpretive Data was last revised on 2018. Blood 12/12/2024 10:4 1 PM CDT 12/12/2024 11:13 PM CDT us Suzette Hunt NP LAB BLOOD ORDERABLES Final Result Performing Organization Address City/[facility]/ZIP Co de Phone Number [facility] [place] [address] * Phosphorus (12/12/2024 10:41 PM CDT) [facility] Phosphorus, pl 3.8 2.3 - 4.5 mg/dL Blood 12/12/2024 10:4 1 PM CDT 12/12/2024 11:13 PM CDT Suzette Hunt [employer] T[employer] MACHINE TENDER LAB BLOOD [place] [address] * Magnesium (12/12/2024 10:41 PM CDT) [facility] Magnesium 2.3 1.4 - 2.5 mg/dL Blood 12/12/2024 10:4 1 PM CDT 12/12/2024 11:13 PM CDT Suzette Hunt SHOT TUBE MACHINE TENDER LAB BLOOD ORDERABLES Final Result Performing Organization Address [facility] [place] [address] * (ABNORMAL) Comprehensive metabolic panel (12/12/2024 10:41 PM CDT) [facility] Sodium 138 135 - 145 mmol/L Potassium, pl 3.9 3.3 - 4.9 mmol/L [facility] Comment:Hemolyzed; Potassium value may be falsely elevated by as much as 0.3-0.5 mmol/L. Suggest redraw and reanalysis. [place] 100 97 - 110 mmol/L [facility] CO2 30 22 - 32 mmol/L [facility] Anion gap 8 2 - 15 mmol/L [facility] BUN 10 6 - 25 mg/dL [facility] Creatinine 0.59(L) 0.60 - 1.10 mg/dL [facility] Glucose 78 70 - 199 mg/dL [facility] Comment: Interpretive Data Fasting glucose >/= 126 mg/dl is diagnostic for diabetes. Fasting is defined as no caloric intake for at least 8 hours. Fasting glucose between 100 mg/dl to 125 mg/dl is diagnostic of prediabetes. In a patient with classic symptoms of hyperglycemia or hyperglycemic crisis, a random glucose >/= 200 mg/dl is diagnostic for diabetes. In the absence of unequivocal hyperglycemia, results should be confirmed by repeat testing. The classification and Diagnosis of Diabetes Diabetes Care 2021; 46: S19-S40. Current interpretive data was last revised 2022. Calcium 8.5 8.5 - 10.3 mg/dL [facility] Bilirubin, total 0.7 0.1 - 1.2 mg/dL [facility] Protein, pl 5.5(L) 6.5 - 8.5 g/dL [facility] Albumin 3.2(L) 3.5 - 5.0 g/dL [facility] Alk phos 76 40 - 130 Units/L [facility] ALT 198(H) 7 - 45 Units/L [facility] AST 100(H) 10 - 45 Units/L [facility] Comment:Hemolyzed; result ma y be falsely elevated Blood 12/12/2024 10:4 1 PM CDT 12/12/2024 11:13 PM CDT us Suzette Hunt NP LAB BLOOD ORDERABLES Final Result Performing Organization Address [facility]/ZIP Co de Phone Number [facility] Department [place] [address] * POCT glucose (12/12/2024 6:20 PM CDT) Glucose, POC 87 70 - 199 mg/dL Blood 12/12/2024 6:20 PM CDT 12/12/2024 6:20 PM CDT us Debra Cagle MD LAB POCT ORDERABLES - DEVICE Final Result Performing Organization Address [facility]/ZIP Co de Phone Number [facility] [place] [address] * eGFR (12/12/2024 3:12 PM CDT) eGFR >90 >=60 mL/min/1. 73 m2 Comment: Interpretive Data Reference Interval Normal >/= 90 mL/min/1.73m2 Mildly decreased* 60 - 89 mL/min/1.73m2 Mildly to moderately decreased 45 - 59 mL/min/1.73m2 Moderately to severely decreased 30 - 44 mL/min/1.73m2 Severely decreased 15 - 29 mL/min/1.73m2 Kidney Failure < 15 mL/min/1.73m2 *Relative to young adult level Estimated glomerular filtration rate is determined by the 2020 CKD-EPI equation recommended by the National Kidney Foundation (A Unifying Approach to GFR Estimation: Recommendations of the NKF-ASK Task Force on Reassessing the Inclusion of Race in Diagnosing Kidney Disease, JASN 2020). The CKD-EPI equation should not be used for patients with unstable renal function and has not been validated in children and those over 70. Current interpretive data was last reviewed 2021. Blood 12/12/2024 3:12 PM CDT 12/12/2024 3:38 PM CDT Suzette Hunt NP LAB BLOOD ORDERABLES Final Result Performing Organization Address [facility] Co de Phone Number [facility] [employer] [place] [address] * Phosphorus (12/12/2024 3:12 PM CDT) Pathologist [facility] Phosphorus, pl 3.8 2.3 - 4.5 mg/dL Blood 12/12/2024 3:12 PM CDT 12/12/2024 3:38 PM CDT Suzette Hunt NP LAB BLOOD ORDERABLES Final Result Performing Organization Address [facility]/State/[place] [address] * Magnesium (12/12/2024 3:12 PM CDT) Pathologist [facility] Magnesium 2.3 1.4 - 2.5 mg/dL Blood 12/12/2024 3:12 PM CDT 12/12/2024 3:38 PM CDT us Suzette Hunt NP LAB BLOOD ORDERABLES Final Result [facility] Department [place] [address] * (ABNORMAL) Comprehensive metabolic panel (12/12/2024 3:12 PM CDT) Pathologist [facility] Sodium 138 135 - 145 mmol/L Potassium, pl 3.7 3.3 - 4.9 mmol/L [facility] [place] 102 97 - 110 mmol/L [facility] CO2 31 22 - 32 mmol/L [facility] Anion gap 5 2 - 15 mmol/L [facility] BUN 9 6 - 25 mg/dL [facility] Creatinine 0.57(L) 0.60 - 1.10 mg/dL [facility] Glucose 84 70 - 199 mg/dL [facility] Comment: Interpretive Data Fasting glucose >/= 126 mg/dl is diagnostic for diabetes. Fasting is defined as no caloric intake for at least 8 hours. Fasting glucose between 100 mg/dl to 125 mg/dl is diagnostic of prediabetes. In a patient with classic symptoms of hyperglycemia or hyperglycemic crisis, a random glucose >/= 200 mg/dl is diagnostic for diabetes. In the absence of unequivocal hyperglycemia, results should be confirmed by repeat testing. The classification and Diagnosis of Diabetes Diabetes Care 2021; 46: S19-S40. Current interpretive data was last revised 2022. Calcium 8.3(L) 8.5 - 10.3 mg/dL [facility] Bilirubin, total 0.8 0.1 - 1.2 mg/dL [facility] Protein, pl 5.4(L) 6.5 - 8.5 g/dL [facility] Albumin 3.1(L) 3.5 - 5.0 g/dL [facility] Alk phos 73 40 - 130 Units/L [facility] ALT 201(H) 7 - 45 Units/L [facility] AST 107(H) 10 - 45 Units/L [facility] Blood 12/12/2024 3:12 PM CDT 12/12/2024 3:38 PM CDT Suzette Hunt NP LAB BLOOD ORDERABLES Final Result Performing Organization Address City/[facility]/ZIP Co de Phone Number [facility] Department [place] [address] * eGFR (12/12/2024 11:00 AM CDT) eGFR >90 >=60 mL/min/1. 73 m2 Comment: Interpretive Data Reference Interval Normal >/= 90 mL/min/1.73m2 Mildly decreased* 60 - 89 mL/min/1.73m2 Mildly to moderately decreased 45 - 59 mL/min/1.73m2 Moderately to severely decreased 30 - 44 mL/min/1.73m2 Severely decreased 15 - 29 mL/min/1.73m2 Kidney Failure < 15 mL/min/1.73m2 *Relative to young adult level Estimated glomerular filtration rate is determined by the 2020 CKD-EPI equation recommended by the National Kidney Foundation (A Unifying Approach to GFR Estimation: Recommendations of the NKF-ASK Task Force on Reassessing the Inclusion of Race in Diagnosing Kidney Disease, JASN 2020). The CKD-EPI equation should not be used for patients with unstable renal function and has not been validated in children and those over 70. Current interpretive data was last reviewed 2021. Blood 12/12/2024 11:0 0 AM CDT 12/12/2024 11:43 AM CDT us Suzette Hunt NP LAB BLOOD ORDERABLES Final Result Performing Organization Address City/[facility]/ZIP Co de Phone Number [facility] Department [place] [address] * (ABNORMAL) Phosphorus (12/12/2024 11:00 AM CDT) [facility] Phosphorus, pl 2.0(L) 2.3 - 4.5 mg/dL Blood 12/12/2024 11:0 0 AM CDT 12/12/2024 11:43 AM CDT Suzette Hunt SHOT TU[employer] MACHINE TENDER LAB BLOOD ORDERABLES Final Result Performing Organization Address City/[facility] Co de Phone Number [facility] Department [place] [address] * Magnesium (12/12/2024 11:00 AM CDT) [facility] Magnesium 2.3 1.4 - 2.5 mg/dL Blood 12/12/2024 11:0 0 AM CDT 12/12/2024 11:43 AM CDT Suzette Hunt NP LAB BLOOD ORDERABLES Final Result Performing Organization Address [facility] de Phone Number [facility] [place] [address] * (ABNORMAL) Comprehensive metabolic panel (12/12/2024 11:00 AM CDT) [facility] Sodium 136 135 - 145 mmol/L Potassium, pl 3.6 3.3 - 4.9 mmol/L [facility] [place] 99 97 - 110 mmol/L [facility] CO2 30 22 - 32 mmol/L [facility] Anion gap 7 2 - 15 mmol/L [facility] BUN 10 6 - 25 mg/dL [facility] Creatinine 0.53(L) 0.60 - 1.10 mg/dL [facility] Glucose 125 70 - 199 mg/dL [facility] Comment: Interpretive Data Fasting glucose >/= 126 mg/dl is diagnostic for diabetes. Fasting is defined as no caloric intake for at least 8 hours. Fasting glucose between 100 mg/dl to 125 mg/dl is diagnostic of prediabetes. In a patient with classic symptoms of hyperglycemia or hyperglycemic crisis, a random glucose >/= 200 mg/dl is diagnostic for diabetes. In the absence of unequivocal hyperglycemia, results should be confirmed by repeat testing. The classification and Diagnosis of Diabetes Diabetes Care 2021; 46: S19-S40. Current interpretive data was last revised 2022. Calcium 7.8(L) 8.5 - 10.3 mg/dL [facility] Bilirubin, total 0.9 0.1 - 1.2 mg/dL [facility] Protein, pl 5.6(L) 6.5 - 8.5 g/dL [facility] Albumin 3.1(L) 3.5 - 5.0 g/dL [facility] Alk phos 77 40 - 130 Units/L [facility] ALT 211(H) 7 - 45 Units/L [facility] AST 121(H) 10 - 45 Units/L [facility] Blood 12/12/2024 11:0 0 AM CDT 12/12/2024 11:43 AM CDT us Suzette Hunt NP LAB BLOOD ORDERABLES Final Result Performing Organization Address City/[facility]/ZIP Co de Phone Number [facility] Department [place] [address] * POCT glucose (12/12/2024 10:59 AM CDT) Glucose, POC 121 70 - 199 mg/dL Blood 12/12/2024 10:5 9 AM CDT 12/12/2024 10:59 AM CDT us Debra Cagle MD LAB POCT ORDERABLES - DEVICE Final Result [facility] Department [place] [address] * (ABNORMAL) Phosphorus (12/12/2024 5:16 AM CDT) Phosphorus, pl 2.2(L) 2.3 - 4.5 mg/dL Blood 12/12/2024 5:16 AM CDT 12/12/2024 5:24 AM CDT us Debra Cagle MD LAB BLOOD ORDERABLES Final R esult Performing Organization Address City/State/[facility] Co de Phone Number [facility] [place] [address] * Magnesium (12/12/2024 5:16 AM CDT) Magnesium 1.8 1.4 - 2.5 mg/dL Blood 12/12/2024 5:16 AM CDT 12/12/2024 5:24 AM CDT us Debra Cagle MD LAB BLOOD ORDERABLES Final R esult Performing Organization Address City/[facility] Co de Phone Number [facility] Department [place] [address] * eGFR (12/12/2024 12:25 AM CDT) eGFR >90 >=60 mL/min/1. 73 m2 Comment: Interpretive Data Reference Interval Normal >/= 90 mL/min/1.73m2 Mildly decreased* 60 - 89 mL/min/1.73m2 Mildly to moderately decreased 45 - 59 mL/min/1.73m2 Moderately to severely decreased 30 - 44 mL/min/1.73m2 Severely decreased 15 - 29 mL/min/1.73m2 Kidney Failure < 15 mL/min/1.73m2 *Relative to young adult level Estimated glomerular filtration rate is determined by the 2020 CKD-EPI equation recommended by the National Kidney Foundation (A Unifying Approach to GFR Estimation: Recommendations of the NKF-ASK Task Force on Reassessing the Inclusion of Race in Diagnosing Kidney Disease, JASN 2020). The CKD-EPI equation should not be used for patients with unstable renal function and has not been validated in children and those over 70. Current interpretive data was last reviewed 2021. Blood 12/12/2024 12:2 5 AM CDT 12/12/2024 12:35 AM CDT us Debra Cagle MD LAB BLOOD ORDERABLES Final R esult Performing Organization Address [facility] Co de Phone Number [facility] Department [place] [address] * (ABNORMAL) Iron profile w/ IBC (12/12/2024 12:25 AM CDT) Iron 79 35 - 145 mcg/dL TIBC 147(L) 250 - 400 mcg/dL [facility] Transferrin saturation 54(H) 20 - 50 % [facility] Blood 12/12/2024 12:2 5 AM CDT 12/12/2024 12:35 AM CDT us Debra Cagle MD LAB BLOOD ORDERABLES Final R esult Performing Organization Address [facility] Co de Phone Number [facility] Department [place] [address] * (ABNORMAL) Copper, serum (12/12/2024 12:25 AM CDT) Copper 48(L) 77 - 206 mcg/dL [facility] Comment: ADDITIONAL INFORMATION This test was developed and its performance characteristics determined by [facility] in a manner consistent with CLIA requirements. This test has not been cleared or approved by the U.S. Food and Drug Administration. Test Performed by: [facility] - [address] [address] Case Making Machine Operator: James Donis Ph.D.; CLIA# [id number] Blood 12/12/2024 12:2 5 AM CDT 12/12/2024 12:35 AM CDT us Debra Cagle MD LAB BLOOD ORDERABLES Final R esult Performing Organization Address [facility] Co de Phone Number [place] [address] [facility] * Zinc (12/12/2024 12:25 AM CDT) Zinc 76 60 - 106 mcg/dL [facility] Comment: ADDITIONAL INFORMATION This test was developed and its performance characteristics determined by [facility] in a manner consistent with CLIA requirements. This test has not been cleared or approved by the U.S. Food and Drug Administration. Test Performed by: [facility] [place] [address] Case Making Machine Operator: James Donis Ph.D.; CLIA# [id number] Blood 12/12/2024 12:2 5 AM CDT 12/12/2024 12:35 AM CDT Debra Cagle MD LAB BLOOD ORDERABLES Final R bereket Performing Organization Address [facility] de Phone Number [facility] [place] [address] [facility] * (ABNORMAL) Vitamin A (12/12/2024 12:25 AM CDT) Vitamin A 19.7(L) 32.5 - 78.0 mcg/dL [facility] Comment: ADDITIONAL INFORMATION This test was developed and its performance characteristics determined by [facility] in a manner consistent with CLIA requirements. This test has not been cleared or approved by the U.S. Food and Drug Administration. Test Performed by: [facility] [place] [address] Case Making Machine Operator: James Donis Ph.D.; IA# [id number] Blood 12/12/2024 12:2 5 AM CDT 12/12/2024 12:35 AM CDT Debra Cagle MD LAB BLOOD ORDERABLES Final R esult Performing Organization Address City/[facility]/ZIP Co de Phone Number [facility] [place] [address] [facility] * (ABNORMAL) Vitamin D 25 hydroxy (12/12/2024 12:25 AM CDT) [facility] Vitamin D 25-OH 16(L) 30 - 80 ng/mL Blood 12/12/2024 12:2 5 AM CDT 12/12/2024 12:35 AM CDT Debra Cagle MD LAB BLOOD ORDERABLES Final R esult Performing Organization Address City/[facility]/ZIP Co de Phone Number [facility] [place] [address] * (ABNORMAL) CBC without differential (12/12/2024 12:25 AM CDT) [facility] WBC 6.15 3.80 - 9.90 K/cumm Hgb 13.3 11.9 - 15.5 g/dL [facility] Hct 37.7 35.6 - 45.5 % [facility] Plt 210 150 - 400 K/cumm [facility] MPV 10.1 9.1 - 12.3 fL [facility] RBC 4.76 3.90 - 5.20 M/cumm [facility] MCV 79.2(L) 81.3 - 96.4 fL [facility] MCH 27.9 27.1 - 33.3 pg [facility] MCHC 35.3 32.3 - 35.7 g/dL [facility] RDW CV 14.7 11.1 - 14.9 % [facility] RDW SD 42.5 35.7 - 48.1 fL [facility] NRBC abs 0.00 0.00 - 0.01 K/cumm [facility] Blood 12/12/2024 12:2 5 AM CDT 12/12/2024 12:35 AM CDT Debra Cagle MD LAB BLOOD ORDERABLES Final R esult Performing Organization Address City/[facility] Co de Phone Number [facility] [place] [address] * (ABNORMAL) Vitamin B1 (12/12/2024 12:25 AM CDT) Pathologist [facility] Thiamine (Vit B1) 41(L) 70 - 180 nmol/L [facility] Comment: ADDITIONAL INFORMATION This test was developed and its performance characteristics determined by [facility] in a manner consistent with CLIA requirements. This test has not been cleared or approved by the U.S. Food and Drug Administration. Test Performed by: [facility] [place] [address] Case Making Machine Operator: James Donis Ph.D.; CLIA# [id number] Blood 12/12/2024 12:2 5 AM CDT 12/12/2024 12:35 AM CDT Debra Cagle MD LAB BLOOD ORDERABLES Final R esult Performing Organization Address City/[facility] Co de Phone Number [facility] [place] [address] [facility] * Phosphorus (12/12/2024 12:25 AM CDT) Pathologist [facility] Phosphorus, pl 2.3 2.3 - 4.5 mg/dL Blood 12/12/2024 12:2 5 AM CDT 12/12/2024 12:35 AM CDT us Debra Cagle MD LAB BLOOD ORDERABLES Final R esult Performing Organization Address [facility] Co de Phone Number [facility] [place] [address] * Magnesium (12/12/2024 12:25 AM CDT) Magnesium 1.8 1.4 - 2.5 mg/dL Blood 12/12/2024 12:2 5 AM CDT 12/12/2024 12:35 AM CDT us Debra Cagle MD LAB BLOOD ORDERABLES Final R esult Performing Organization Address [facility] [place] [address] * Folate (12/12/2024 12:25 AM CDT) Folic acid 13.0 >=5.0 ng/mL Blood 12/12/2024 12:2 5 AM CDT 12/12/2024 12:35 AM CDT us Debra Cagle MD LAB BLOOD ORDERABLES Final R esult Performing Organization Address [facility] de Phone Number [facility] [place] [address] * Vitamin B12 (12/12/2024 12:25 AM CDT) Vitamin B12 907 230 - 1,250 pg/mL Blood 12/12/2024 12:2 5 AM CDT 12/12/2024 12:35 AM CDT us Debra Cagle MD LAB BLOOD ORDERABLES Final R esult Performing Organization Address [facility] Co de Phone Number [facility] [place] [address] * (ABNORMAL) Comprehensive metabolic panel (12/12/2024 12:25 AM CDT) Sodium 136 135 - 145 mmol/L Potassium, pl 3.1(L) 3.3 - 4.9 mmol/L [facility] [place] 98 97 - 110 mmol/L [facility] CO2 30 22 - 32 mmol/L [facility] Anion gap 8 2 - 15 mmol/L [facility] BUN 15 6 - 25 mg/dL [facility] Creatinine 0.52(L) 0.60 - 1.10 mg/dL [facility] Glucose 153 70 - 199 mg/dL [facility] Comment: Interpretive Data Fasting glucose >/= 126 mg/dl is diagnostic for diabetes. Fasting is defined as no caloric intake for at least 8 hours. Fasting glucose between 100 mg/dl to 125 mg/dl is diagnostic of prediabetes. In a patient with classic symptoms of hyperglycemia or hyperglycemic crisis, a random glucose >/= 200 mg/dl is diagnostic for diabetes. In the absence of unequivocal hyperglycemia, results should be confirmed by repeat testing. The classification and Diagnosis of Diabetes Diabetes Care 2021; 46: S19-S40. Current interpretive data was last revised 2022. Calcium 8.0(L) 8.5 - 10.3 mg/dL [facility] Bilirubin, total 0.8 0.1 - 1.2 mg/dL [facility] Protein, pl 5.3(L) 6.5 - 8.5 g/dL [facility] Albumin 3.0(L) 3.5 - 5.0 g/dL [facility] Alk phos 72 40 - 130 Units/L [facility] ALT 202(H) 7 - 45 Units/L [facility] AST 138(H) 10 - 45 Units/L [facility] Blood 12/12/2024 12:2 5 AM CDT 12/12/2024 12:35 AM CDT us Debra Cagle MD LAB BLOOD ORDERABLES Final R esult [facility] Department [place] [address] * eGFR (12/11/2024 11:52 AM CDT) Pathologist [facility] eGFR >90 >=60 mL/min/1. 73 m2 Comment: Interpretive Data Reference Interval Normal >/= 90 mL/min/1.73m2 Mildly decreased* 60 - 89 mL/min/1.73m2 Mildly to moderately decreased 45 - 59 mL/min/1.73m2 Moderately to severely decreased 30 - 44 mL/min/1.73m2 Severely decreased 15 - 29 mL/min/1.73m2 Kidney Failure < 15 mL/min/1.73m2 *Relative to young adult level Estimated glomerular filtration rate is determined by the 2020 CKD-EPI equation recommended by the National Kidney Foundation (A Unifying Approach to GFR Estimation: Recommendations of the NKF-ASK Task Force on Reassessing the Inclusion of Race in Diagnosing Kidney Disease, JASN 2020). The CKD-EPI equation should not be used for patients with unstable renal function and has not been validated in children and those over 70. Current interpretive data was last reviewed 2021. Blood 12/11/2024 11:5 2 AM CDT 12/11/2024 12:09 PM CDT us Debra Cagle MD LAB BLOOD ORDERABLES Final R esult [facility] Department [place] [address] * (ABNORMAL) Differential, auto (12/11/2024 11:52 AM CDT) Pathologist [facility] Neutrophil abs 5.84 1.50 - 6.50 K/cumm Imm gran abs 0.04 0.00 - 0.10 K/cumm [facility] Lymphocyte abs 0.89 0.80 - 3.30 K/cumm [facility] Monocyte abs 0.90(H) 0.20 - 0.80 K/cumm [facility] Eosinophil abs 0.00 0.00 - 0.50 K/cumm [facility] Basophil abs 0.02 0.00 - 0.10 K/cumm [facility] Neutrophil pct 75.9 % [facility] Comment: Interpretive Data Percent cell count reference ranges are not reported, since discordance with absolute values may lead to misinterpretation of CBC data. Current Interpretive Data was last revised on 2017. Imm gran pct 0.5 % [facility] Comment: Interpretive Data Percent cell count reference ranges are not reported, since discordance with absolute values may lead to misinterpretation of CBC data. Current Interpretive Data was last revised on 2017. Lymphocyte pct 11.6 % [facility] Comment: Interpretive Data Percent cell count reference ranges are not reported, since discordance with absolute values may lead to misinterpretation of CBC data. Current Interpretive Data was last revised on 2017. Monocyte pct 11.7 % [facility] Comment: Interpretive Data Percent cell count reference ranges are not reported, since discordance with absolute values may lead to misinterpretation of CBC data. Current Interpretive Data was last revised on 2017. Eosinophil pct 0.0 % [facility] Comment: Interpretive Data Percent cell count reference ranges are not reported, since discordance with absolute values may lead to misinterpretation of CBC data. Current Interpretive Data was last revised on 2017. Basophil pct 0.3 % [facility] Comment: Interpretive Data Percent cell count reference ranges are not reported, since discordance with absolute values may lead to misinterpretation of CBC data. Current Interpretive Data was last revised on 2017. Blood 12/11/2024 11:5 2 AM CDT 12/11/2024 12:09 PM CDT us Debra Cagle MD LAB BLOOD ORDERABLES Final R esult [facility] Department [place] [address] * (ABNORMAL) CBC with auto differential (12/11/2024 11:52 AM CDT) WBC 7.69 3.80 - 9.90 K/cumm Hgb 15.9(H) 11.9 - 15.5 g/dL [facility] Hct 46.2(H) 35.6 - 45.5 % [facility] Plt 294 150 - 400 K/cumm [facility] MPV 9.7 9.1 - 12.3 fL [facility] RBC 5.85(H) 3.90 - 5.20 M/cumm [facility] MCV 79.0(L) 81.3 - 96.4 fL [facility] MCH 27.2 27.1 - 33.3 pg [facility] MCHC 34.4 32.3 - 35.7 g/dL [facility] RDW CV 15.0(H) 11.1 - 14.9 % [facility] RDW SD 42.6 35.7 - 48.1 fL [facility] NRBC abs 0.00 0.00 - 0.01 K/cumm [facility] Blood 12/11/2024 11:5 2 AM CDT 12/11/2024 12:09 PM CDT us Debra Cagle MD LAB BLOOD ORDERABLES Final R esult [facility] Department [place] [address] * (ABNORMAL) Protime-INR (12/11/2024 11:52 AM CDT) PT 13.8(H) 9.7 - 13.0 sec INR 1.27(H) 0.90 - 1.20 [facility] Comment: Interpretive data Oral anticoagulant therapeutic ranges: Venous thromboembolism prophylaxis or treatment: 2.0-3.0 CARDIOLOGY Standard range: 2.0-3.0 High-intensity range: 2.5-3.5 Refer to indication-specific guidelines for appropriate target ranges for prosthetic heart valve replacement. Current interpretive data was last revised on 2019. Blood 12/11/2024 11:5 2 AM CDT 12/11/2024 12:09 PM CDT us Debra Cagle MD LAB BLOOD ORDERABLES Final R esult Performing Organization Address [facility] Co de Phone Number [facility] [place] [address] * Phosphorus (12/11/2024 11:52 AM CDT) [facility] Phosphorus, pl 3.5 2.3 - 4.5 mg/dL Blood 12/11/2024 11:5 2 AM CDT 12/11/2024 12:09 PM CDT Debra Cagle MD LAB BLOOD ORDERABLES Final R esult Performing Organization Address [facility] Co de Phone Number [facility] [place] [address] * Magnesium (12/11/2024 11:52 AM CDT) [facility] Magnesium 2.1 1.4 - 2.5 mg/dL Blood 12/11/2024 11:5 2 AM CDT 12/11/2024 12:09 PM CDT Debra Cagle MD LAB BLOOD ORDERABLES Final R esult Performing Organization Address [facility] Co de Phone Number [facility] [place] [address] * (ABNORMAL) Comprehensive metabolic panel (12/11/2024 11:52 AM CDT) [facility] Sodium 132(L) 135 - 145 mmol/L Potassium, pl 3.9 3.3 - 4.9 mmol/L [facility] [place] 89(L) 97 - 110 mmol/L [facility] CO2 27 22 - 32 mmol/L [facility] Anion gap 16(H) 2 - 15 mmol/L [facility] BUN 22 6 - 25 mg/dL [facility] Creatinine 0.50(L) 0.60 - 1.10 mg/dL [facility] Glucose 117 70 - 199 mg/dL [facility] Comment: Interpretive Data Fasting glucose >/= 126 mg/dl is diagnostic for diabetes. Fasting is defined as no caloric intake for at least 8 hours. Fasting glucose between 100 mg/dl to 125 mg/dl is diagnostic of prediabetes. In a patient with classic symptoms of hyperglycemia or hyperglycemic crisis, a random glucose >/= 200 mg/dl is diagnostic for diabetes. In the absence of unequivocal hyperglycemia, results should be confirmed by repeat testing. The classification and Diagnosis of Diabetes Diabetes Care 2021; 46: S19-S40. Current interpretive data was last revised 2022. Calcium 9.0 8.5 - 10.3 mg/dL [facility] Bilirubin, total 0.9 0.1 - 1.2 mg/dL [facility] Protein, pl 6.5 6.5 - 8.5 g/dL [facility] Albumin 3.6 3.5 - 5.0 g/dL [facility] Alk phos 88 40 - 130 Units/L [facility] ALT 246(H) 7 - 45 Units/L [facility] AST 172(H) 10 - 45 Units/L [facility] Blood 12/11/2024 11:5 2 AM CDT 12/11/2024 12:09 PM CDT us Debra Cagle MD LAB BLOOD ORDERABLES Final R esult [facility] Department [place] [address] * High Risk HPV DNA Detection with Genotyping (Molecular component) (12/06/2024 1:01 PM CDT) Pathologist [facility] HPV HR 16 Not Detected Not Detected [facility] HPV HR 18 Not Detected Not Detected [facility] HPV HR Non 16/18 Not Detected Not Detected [facility] Comment: Interpretive Data Nucleic acid amplification for detection of high-risk Human Papilloma virus (HPV) is performed by the Brooke Cici 6800 HPV test. This assay specifically detects HPV-16 and HPV-18 genotypes. The following HPV genotypes are detected as high-risk HPV: HPV-31, 33, 35, ,39, 45, 51, 52, 56, 58, 59, 66, and 68. This assay has been approved by the [place] Food and Drug Administration for detection of HPV in cervical specimens collected by a physician using an endocervical brush/spatula or cervical broom and placed in the ThinPrep Pap Test PreservCyt collection containers. The performance characteristics of this test have been verified by the [facility] Molecular Infectious Disease laboratory. Correlate with separately reported cytology results, as applicable. Interpretive data last revised 22 Endocervical 12/06/2024 1:01 PM CDT 12/08/2024 6:39 AM CDT Narrative [facility] - 12/10/2024 9:55 PM CDT Clinical history and diagnosis->screening Number of vials->1 Testing type->Screening Last menstrual period (date if known)->2007 Menstrual status->Postmenopausal Ana Herron MD LAB BODY FLUIDS A ND STOOLS ORDERABLES Final Result [facility] Department [place] [address] [facility] * Pap and High Risk HPV and Genotyping (Cytology Component) (12/06/2024 1:01 PM CDT) Thin prep (Pap test) 12/06/2024 1:01 PM CDT 12/06/2024 5:36 PM CDT Narrative PATHOLOGY [facility] - 12/14/2024 12:35 PM CDT EPIC results best viewed via link to PDF [facility] Surgical Pathology [place], [place] [id number] Note to Patients: This report may contain a detailed description of human tissue sent by a health care provider to the laboratory for pathologic evaluation. The content of this report is essential for diagnosis and may provide important critical findings. This information may be unfamiliar to patients to review without a medical professional present. It is advised that the patient review this report in the presence of a health care provider who can answer questions and explain the details. CYTOPATHOLOGY REPORT FINAL Patient Name: JOHNY GLORIA Gender: F : 1960 (Age: 64) Address: [address] [place] [id number] Hospital #: [id number] Service: [facility] Location: Patient Type: [facility] SPECIMEN Taken: 12/06/2024 Received: 12/06/2024 Accessioned: 12/07/2024 Reported: 12/14/2024 Physician(s): Ana Herron MD FINAL INTERPRETATION SOURCE OF SPECIMEN Liquid based Thin Prep pap with HPV: STATEMENT OF ADEQUACY - Satisfactory for evaluation - No endocervical/transformation zone sample present in a post menopausal patient GENERAL CATEGORIZATION: - Negative for squamous intraepithelial lesion or malignancy INTERPRETATION: - Atrophy Comments (Normal-Negative for High Risk HPV) HPV HR 16- Not detected HPV HR 18-Not detected HPV HR non 16/18- Not detected Interpretive Data Nucleic acid amplification for detection of high-risk Human Papilloma virus (HPV) is performed by the Brooke Cici 6800 HPV test. This assay specifically detects HPV- 16 and HPV-18 genotypes. The following HPV genotypes are detected as high-risk HPV: HPV-31, 33, 35, 39, 45, 51, 52, 56, 58, 59, 66, and 68. This assay has been approved by the [place] Food and Drug Administration for detection of HPV in cervical specimens collected by a physician using an endocervical brush/spatula or cervical broom and placed in the ThinPrep Pap Test PreservCyt collection containers. The performance characteristics of this test have been verified by the [facility] Molecular Infectious Disease laboratory. Correlate with reported cytology results, as applicable. Interpretive data last revised 22 [facility] ere/12/14/2024 12:35 KATJA Almonte(ASCP) Report Electronically Reviewed and Signed Out By KATJA Almonte(ASCP) 12/14/2024 12:35:37 Cervicovaginal Cytology (Pap Test) Disclaimer: The Pap test is a screening test used to detect cervical cancer and its precursors; it is not a diagnostic procedure. False negative and false positive results do occur. Pap test results should be interpreted in the context of pertinent clinical information and biopsy results as indicated. [facility] Clinical Laboratory Improvement Amendments (CLIA) mandate that cytologic and histologic results be correlated for laboratory coding quality coordinator & improvement standards. FOR ALL HIGH-GRADE CASES we request submission of follow-up histological material and/or reports that have not been previously provided so that we may fulfill said required standards. Gross Description A. Liquid based Thin Prep pap with HPV: Cervical/vaginal - Screening ThinPrep Clinical Diagnosis and History Last Menstrual Period: 2007 Menstrual History: Post-menopausal The patient is a 64 year old female with screening. Report Images and scanned documents, if included only viewable in PDF version The performance characteristics of some immunohistochemical stains, in-situ hybridization and fluorescence in-situ hybridization tests and immunophenotyping by flow cytometry cited in this report (if any) were determined by the Surgical Pathology Department at [facility] as part of an ongoing manager quality systems program and in compliance with federally mandated regulations drawn from the Clinical Laboratory Improvement Act of 1988 (CLIA '88). Some of these tests rely on the use of analyte specific reagents and are subject to specific labeling requirements by the US Food and Drug Administration. Such diagnostic tests may only be performed in a facility that is certified by the Department of Health and Human Services as a high complexity laboratory under CLIA '88. The FDA has determined that such clearance or approval is not necessary. This test is used for clinical purposes. It should not be regarded as investigational or for research. Nevertheless, federal rules concerning the medical use of analyte specific reagents require that the following disclaimer be attached to the report: This test was developed and its performance characteristics determined by the Surgical Pathology Department of [facility]. It has not been cleared or approved by the U. S. Food and Drug Administration. us Ana Herron MD LAB CYTOLOGY PAULO GONZALEZ Final Result PATHOLOGY [facility] 3rd Floor [place], [place] [phone] * (ABNORMAL) Neuron specific enolase (12/05/2024 4:30 PM CDT) Neuron-specific enolase 19(H) <=15 ng/mL [facility] Comment: ADDITIONAL INFORMATION This test was developed and its performance characteristics determined by [facility] in a manner consistent with CLIA requirements. This test has not been cleared or approved by the U.S. Food and Drug Administration. In some immunoassays, the presence of unusually high concentrations of analyte may result in a high-dose hook effect. This may result in a lower or even normal measured analyte concentration. If the reported result is inconsistent with the clinical presentation, the laboratory should be alerted for troubleshooting. For diagnostic purposes, these immunoassay results should always be assessed in conjunction with the patients medical history, clinical examination and other findings. The testing method is a homogeneous time-resolved immunofluorescent assay manufactured by [employer] and performed on the [employer] Compact Plus. Values obtained with different assay methods or kits may be different and cannot be used interchangeably. If ordered as a tumor marker, this test result cannot be interpreted as absolute evidence for the presence or absence of malignant disease. Test Performed by: [place] [address] Case Making Machine Operator: James Donis Ph.D.; CLIA# [id number] Blood 12/05/2024 4:30 PM CDT 12/05/2024 5:56 PM CDT us Debra Cagle MD LAB BLOOD ORDERABLES Final R esult [facility] Department [place] [address] [facility] * eGFR (12/05/2024 4:30 PM CDT) eGFR >90 >=60 mL/min/1. 73 m2 Comment: Interpretive Data Reference Interval Normal >/= 90 mL/min/1.73m2 Mildly decreased* 60 - 89 mL/min/1.73m2 Mildly to moderately decreased 45 - 59 mL/min/1.73m2 Moderately to severely decreased 30 - 44 mL/min/1.73m2 Severely decreased 15 - 29 mL/min/1.73m2 Kidney Failure < 15 mL/min/1.73m2 *Relative to young adult level Estimated glomerular filtration rate is determined by the 2020 CKD-EPI equation recommended by the National Kidney Foundation (A Unifying Approach to GFR Estimation: Recommendations of the NKF-ASK Task Force on Reassessing the Inclusion of Race in Diagnosing Kidney Disease, JASN 202). The CKD-EPI equation should not be used for patients with unstable renal function and has not been validated in children and those over 70. Current interpretive data was last reviewed 2021. Blood 12/05/2024 4:30 PM CDT 12/05/2024 5:13 PM CDT us Ilene JONES LAB BLOOD ORDERABLES Sunitha nasicmento Result [facility] Department [place] [address] * (ABNORMAL) Chromogranin A (12/05/2024 4:30 PM CDT) Chromogranin A 286(H) <93 ng/mL [facility] Comment: Impaired renal or hepatic function or treatment with proton pump inhibitors may result in artifactual elevations of Chromogranin A. ADDITIONAL INFORMATION The testing method is a homogeneous time-resolved immunofluorescent assay manufactured by [employer] and performed on the [employer] Krypt[employer] Compact Plus. Values obtained with different assay methods or kits may be different and cannot be used interchangeably. Test results cannot be interpreted as absolute evidence for the presence or absence of malignant disease. In some immunoassays, the presence of unusually high concentrations of analyte may result in a high-dose hook effect. This may result in a lower or even normal measured analyte concentration. If the reported result is inconsistent with the clinical presentation, the laboratory should be alerted for troubleshooting. For diagnostic purposes, these immunoassay results should always be assessed in conjunction with the patients medical history, clinical examination and other findings. Test Performed by: [address] [address] Case Making Machine Operator: James Donis Ph.D.; [facility]# [id number] Blood 12/05/2024 4:30 PM CDT 12/05/2024 6:17 PM CDT us Debra Cagle MD LAB BLOOD ORDERABLES Final R esult Performing Organization Address [facility] Co de Phone Number [facility] [place] [address] [facility] * aPTT (12/05/2024 4:30 PM CDT) aPTT 29 28 - 38 sec Comment: Interpretive Data Heparin therapeutic range: 66.0 - 100.0 seconds. Range based on correlation with therapeutic heparin activity range of 0.3 - 0.7 Units/mL. Current interpretive data was last revised on 2023. Blood Venous blood specimen / Unknown 12/05/2024 4:30 PM CDT 12/05/2024 5:02 PM CDT us Denisa Robert MD LAB BLOOD ORDERABLES Final Result Performing Organization Address [facility] de Phone Number [facility] [place] [address] * Protime-INR (12/05/2024 4:30 PM CDT) PT 12.4 9.7 - 13.0 sec INR 1.14 0.90 - 1.20 [facility] Comment: Interpretive data Oral anticoagulant therapeutic ranges: Venous thromboembolism prophylaxis or treatment: 2.0-3.0 CARDIOLOGY Standard range: 2.0-3.0 High-intensity range: 2.5-3.5 Refer to indication-specific guidelines for appropriate target ranges for prosthetic heart valve replacement. Current interpretive data was last revised on 2019. Blood Venous blood specimen / Unknown 12/05/2024 4:30 PM CDT 12/05/2024 5:02 PM CDT us Denisa Robert MD LAB BLOOD ORDERABLES Final Result [facility] Department [place] [address] * (ABNORMAL) CBC without differential (12/05/2024 4:30 PM CDT) WBC 7.93 3.80 - 9.90 K/cumm Comment:Testing performed by : [facility], [address] [place] [address] Hgb 16.3(H) 11.9 - 15.5 g/dL [facility] Comment:Testing performed by : [facility], [address] [place] [address] Hct 47.0(H) 35.6 - 45.5 % [facility] Comment:Testing performed by : [facility], [address] [place] [address] Plt 307 150 - 400 K/cumm [facility] Comment:Testing performed by : [facility], [address] [place] [address] MPV 8.1 6.8 - 10.4 fL [facility] Comment:Testing performed by : [facility], [address] [place] [address] RBC 5.92(H) 3.90 - 5.20 M/cumm [facility] Comment:Testing performed by : [facility], [address] [place] [address] MCV 79.4(L) 81.3 - 96.4 fL [facility] Comment:Testing performed by : [facility], [address] [place] [address] MCH 27.5 27.1 - 33.3 pg [facility] Comment:Testing performed by : [facility], [address] [place] [address] MCHC 34.6 32.3 - 35.7 g/dL [facility] Comment:Testing performed by : [facility], [address] [place] [id number] RDW CV 15.6(H) 11.1 - 14.9 % [facility] Comment:Testing performed by : [facility], [address] [place] [id number] Blood 12/05/2024 4:30 PM CDT 12/05/2024 4:44 PM CDT Ilene JONES LAB BLOOD ORDERABLES Sunitha l Result Performing Organization Address [facility] Co de Phone Number [facility] [place] [place] [address] * Type and screen (12/05/2024 4:30 PM CDT) Myra, indirect Negative ABO Rh A Negative [facility] Blood Venous blood specimen / Unknown 12/05/2024 4:30 PM CDT 12/05/2024 5:00 PM CDT Narrative [facility] - 12/05/2024 6:15 PM CDT Has the patient had Daratumumab or Isatuximab in the past 6 months?->Unknown Denisa Robert MD LAB BLOOD BANK TEST ORDERA BLES Final Result Performing Organization Address [facility] Co de Phone Number [facility] [place] [place] [address] * (ABNORMAL) Serotonin serum (12/05/2024 4:30 PM CDT) Serotonin 959(H) <=230 ng/mL [facility] Comment: ADDITIONAL INFORMATION This test was developed and its performance characteristics determined by [facility] in a manner consistent with CLIA requirements. This test has not been cleared or approved by the U.S. Food and Drug Administration. Test Performed by: [facility] [address] [place] [address] Case Making Machine Operator: James Donis Ph.D.; CLIA# [id number] Blood 12/05/2024 4:30 PM CDT 12/05/2024 8:03 PM CDT us Debra Cagle MD LAB BLOOD ORDERABLES Final R esult [facility] Department [place] [address] [facility] * (ABNORMAL) Prealbumin (12/05/2024 4:30 PM CDT) Pathologist [facility] Prealbumin 13.0(L) 20.0 - 40.0 mg/dL Blood 12/05/2024 4:30 PM CDT 12/05/2024 5:30 PM CDT Denisa Robert MD LAB BLOOD ORDERABLES Final Result [facility] Department [place] [address] * (ABNORMAL) Comprehensive metabolic panel (12/05/2024 4:30 PM CDT) Sodium 124(L) 135 - 145 mmol/L Potassium, pl 3.8 3.3 - 4.9 mmol/L [facility] Chloride 84(L) 97 - 110 mmol/L [facility] CO2 25 22 - 32 mmol/L [facility] Anion gap 15 2 - 15 mmol/L [facility] BUN 12 6 - 25 mg/dL [facility] Creatinine 0.56(L) 0.60 - 1.10 mg/dL [facility] Glucose 101 70 - 199 mg/dL [facility] Comment: Interpretive Data Fasting glucose >/= 126 mg/dl is diagnostic for diabetes. Fasting is defined as no caloric intake for at least 8 hours. Fasting glucose between 100 mg/dl to 125 mg/dl is diagnostic of prediabetes. In a patient with classic symptoms of hyperglycemia or hyperglycemic crisis, a random glucose >/= 200 mg/dl is diagnostic for diabetes. In the absence of unequivocal hyperglycemia, results should be confirmed by repeat testing. The classification and Diagnosis of Diabetes Diabetes Care 2021; 46: S19-S40. Current interpretive data was last revised 2022. Calcium 9.5 8.5 - 10.3 mg/dL [facility] Bilirubin, total 0.8 0.1 - 1.2 mg/dL [facility] Protein, pl 7.2 6.5 - 8.5 g/dL [facility] Albumin 4.1 3.5 - 5.0 g/dL [facility] Alk phos 103 40 - 130 Units/L [facility] ALT 334(H) 7 - 45 Units/L [facility] AST 232(H) 10 - 45 Units/L [facility] Blood 12/05/2024 4:30 PM CDT 12/05/2024 5:02 PM CDT us Ilene JONES LAB BLOOD ORDERABLES Sunitha nascimento Result [facility] Department [place] [address] * PET/CT Dotatate Skull to Thigh (12/04/2024 12:20 PM CDT) Anatomical Region Laterality Modality Positron Emissio n Tomography (PET) 12/04/2024 2:06 PM CDT Impressions 12/04/2024 2:24 PM CDT 1. Numerous intensely avid mesenteric/omental soft tissue deposits and hepatic metastasis compatible with known metastatic neuroendocrine tumor. 2. Progression of small bowel obstruction and severe right hydronephrosis secondary to pelvic mesenteric masses. 3. Mild uptake adjacent to the right posterior 10th rib without CT correlate is indeterminate. Recommend attention on imaging follow-up. The Non Critical results were discussed with JOSUE Lopes by Dr. Yony Jimenes MD on 12/04/2024 at 1:57 PM Modified Krenning score = 4 Dictated by: Yony Jimenes MD The radiology attending physician has personally reviewed this study, and had reviewed and/or edited this written report and agrees with it. Electronically signed by: Rebecca Hi MD, Ph.D Narrative 12/04/2024 2:24 PM CDT EXAMINATION: Cu-64 DOTATATE -PET/CT IMAGING DATE OF STUDY: 12/04/2024 SCANNER: [facility] [employer] (SQ1). This is a high-resolution scanner, which can result in higher SUVs (and even detection of previously unrecognized small lesions) compared to older scanners. RADIOPHARMACEUTICAL: 4.5 mCi Cu-64 Dotatate i.v. 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 The study is requested for initial staging. Initial treatment strategy. TECHNIQUE: After intravenous administration of the radiopharmaceutical, noncontrast CT images were obtained for attenuation correction and for fusion with emission PET images to allow for anatomical localization of PET findings. Emission PET images were then obtained. The study was interpreted on the [employer]ista workstation. The total scanned area was skull vertex to proximal thighs. Images of the body were obtained starting 4.5 minutes after injection of tracer. REFERENCE TISSUE MAXIMUM SUVs: Liver 9.4 Spleen 33.0 Focal Dotatate tracer uptake (visually classified on MIP images) in reference lesions on PET is graded as follows (Modified Krenning Score): 0. No uptake (Negative) 1. Uptake < liver (Minimal) 2. Uptake = liver (Mild) 3. Uptake > liver, but < spleen (Moderate) 4. Uptake > spleen (Intense) COMPARISON: CT 11/02/2024 FINDINGS: There are findings of widely metastatic tracer avid disease. For example: * Multiple mesenteric masses including a 3.7 x 2.9 cm right upper quadrant mesenteric mass on axial image 197 which is intensely avid. Intensely avid right lower quadrant mesenteric mass is partially calcified measuring up to 2.7 x 1.2 cm on axial image 236. There are multiple fluid-filled dilated loops of small bowel throughout the abdomen measuring up to 5.2 cm. The transition point in the right lower quadrant on axial image 226 at the point of this mesenteric mass. * Omental and peritoneal carcinomatosis. For example, an omental nodule in the left hemiabdomen on axial image 229 is intensely avid. * Retroperitoneal lymphadenopathy. For example, a retroperitoneal lymph node measuring 1.1 cm with intense tracer activity on axial image 2021. * Numerous hepatic metastases. For example, a hepatic segment 7 metastasis on axial image 166 is intensely avid. * Intense uptake near the pancreatic tail on axial image [address] correlate. Focus of minimal uptake along the right posterior 8th rib without definite CT correlate. No definite tracer avid disease in the chest.. Additional CT findings: Multiple dental restorations. Coronary artery calcifications. Calcified hilar lymph nodes may represent old granulomatous disease. Bilateral breast implants. There is new severe right hydronephrosis with distal ureter adjacent to a mesenteric mass. Procedure Note Rebecca Diaz MD PhD - 12/04/2024 EXAMINATION: Cu-64 DOTATATE -PET/CT IMAGING DATE OF STUDY: 12/04/2024 SCANNER: [facility] [employer] (SQ1). This is a high-resolution scanner, which can result in higher SUVs (and even detection of previously unrecognized small lesions) compared to older scanners. RADIOPHARMACEUTICAL: 4.5 mCi Cu-64 Dotatate i.v. 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 The study is requested for initial staging. Initial treatment strategy. TECHNIQUE: After intravenous administration of the radiopharmaceutical, noncontrast CT images were obtained for attenuation correction and for fusion with emission PET images to allow for anatomical localization of PET findings. Emission PET images were then obtained. The study was interpreted on the [employer] workstation. The total scanned area was skull vertex to proximal thighs. Images of the body were obtained starting 4.5 minutes after injection of tracer. REFERENCE TISSUE MAXIMUM SUVs: Liver 9.4 Spleen 33.0 Focal Dotatate tracer uptake (visually classified on MIP images) in reference lesions on PET is graded as follows (Modified Krenning Score): 0. No uptake (Negative) 1. Uptake < liver (Minimal) 2. Uptake = liver (Mild) 3. Uptake > liver, but < spleen (Moderate) 4. Uptake > spleen (Intense) COMPARISON: CT 11/02/2024 FINDINGS: There are findings of widely metastatic tracer avid disease. For example: * Multiple mesenteric masses including a 3.7 x 2.9 cm right upper quadrant mesenteric mass on axial image 197 which is intensely avid. Intensely avid right lower quadrant mesenteric mass is partially calcified measuring up to 2.7 x 1.2 cm on axial image 236. There are multiple fluid-filled dilated loops of small bowel throughout the abdomen measuring up to 5.2 cm. The transition point in the right lower quadrant on axial image 226 at the point of this mesenteric mass. * Omental and peritoneal carcinomatosis. For example, an omental nodule in the left hemiabdomen on axial image 229 is intensely avid. * Retroperitoneal lymphadenopathy. For example, a retroperitoneal lymph node measuring 1.1 cm with intense tracer activity on axial image 2021. * Numerous hepatic metastases. For example, a hepatic segment 7 metastasis on axial image 166 is intensely avid. * Intense uptake near the pancreatic tail on axial image [address] correlate. Focus of minimal uptake along the right posterior 8th rib without definite CT correlate. No definite tracer avid disease in the chest.. Additional CT findings: Multiple dental restorations. Coronary artery calcifications. Calcified hilar lymph nodes may represent old granulomatous disease. Bilateral breast implants. There is new severe right hydronephrosis with distal ureter adjacent to a mesenteric mass. IMPRESSION: 1. Numerous intensely avid mesenteric/omental soft tissue deposits and hepatic metastasis compatible with known metastatic neuroendocrine tumor. 2. Progression of small bowel obstruction and severe right hydronephrosis secondary to pelvic mesenteric masses. 3. Mild uptake adjacent to the right posterior 10th rib without CT correlate is indeterminate. Recommend attention on imaging follow-up. The Non Critical results were discussed with JOSUE Lopes by Dr. Yony Jimenes MD on 12/04/2024 at 1:57 PM Modified Krenning score = 4 Dictated by: Yony Jimenes MD The radiology attending physician has personally reviewed this study, and had reviewed and/or edited this written report and agrees with it. Electronically signed by: Rebecca Hi MD, Ph.D us Debra Cagle MD IMG PET PROCEDURES Final Res ult * US Guided Biopsy Abdomen Retroperitoneal (11/16/2024 1:25 PM CDT) Anatomical Region Laterality Modality Abdomen N/A X-Ray Angiograph y 11/16/2024 2:52 PM CDT Impressions 11/16/2024 5:05 PM CDT 1. Technically successful ultrasound-guided core needle biopsy of omental nodularity. 2. Partially imaged significantly dilated bowel bowel loops. Patient was not clinically symptomatic today, and reported passing stool. If patient becomes clinically symptomatic, consider abdominal CT with contrast for further evaluation of bowel obstruction. 3. Please see separate Surgical Pathology results for final interpretation. Dictated by: Thor Lorenzo MD The radiology attending physician has personally reviewed this study, and had reviewed and/or edited this written report and agrees with it. Electronically signed by: David Hernandez M.D. Narrative 11/16/2024 5:05 PM CDT EXAMINATION: ULTRASOUND-GUIDED CORE BIOPSY HISTORY: 64-year-old with densely calcified mesenteric mass and omental nodularity COMPARISON: CT outside consult from 11/03/2024 FINDINGS: Small omental nodules are seen up to 5 mm in greatest dimensions. The omental nodules that were previously subjacent to the inferior epigastrics on the left were not visualized. The nodules were very mobile during the examination, with significantly dilated gas-filled small bowel loops that were obscuring a majority of the nodules. TECHNIQUE: The procedure for ultrasound-guided core biopsy was explained to and discussed with the patient. Risks were explained to include, but not be limited to, hemorrhage, infection, injury to adjacent organs, non-diagnostic specimen and adverse reaction to medications administered. The patient voiced understanding and wished to proceed and signed the consent form. PROCEDURAL SEDATION: Procedural sedation was administered under the attending physician's direction and continuous monitoring by a trained nurse specialist who was independent from those actually performing the procedure. Total monitored sedation time was 61 minutes. CORE BIOPSY: The lesion was located in greater omentum and midline in the infraumbilical location and measured 0.5 cm. An appropriate site was localized for core biopsy. The patient's overlying skin was prepped and draped in the usual sterile fashion. Local anesthesia was achieved via subcutaneous and deep administration with 10 mL of Lidocaine 1%. Under realtime ultrasound guidance, 1 pass were made with an 18 gauge BioPince core biopsy needle, 1.0 cm throw, with the use of a 17 gauge introducer needle. A separate more inferior site at midline was localized for core biopsy, then one more pass was made with 1.0 cm throw. The core specimens were placed in formalin and submitted to the personnel training officer service for delivery to Surgical Pathology. No tract embolization was performed. The patient's skin was cleaned and dressed. The patient tolerated the entire procedure well without immediate complications. Dr. David Hernandez M.D., the attending radiologist, was present from the beginning to the end of the procedure. Dr. Thor Lorenzo MD performed the biopsy. Dr. Thor Lorenzo MD (residential aide) was present and participated in the procedure. Procedure Note David Hernandez MD - 11/16/2024 EXAMINATION: ULTRASOUND-GUIDED CORE BIOPSY HISTORY: 64-year-old with densely calcified mesenteric mass and omental nodularity COMPARISON: CT outside consult from 11/03/2024 FINDINGS: Small omental nodules are seen up to 5 mm in greatest dimensions. The omental nodules that were previously subjacent to the inferior epigastrics on the left were not visualized. The nodules were very mobile during the examination, with significantly dilated gas-filled small bowel loops that were obscuring a majority of the nodules. TECHNIQUE: The procedure for ultrasound-guided core biopsy was explained to and discussed with the patient. Risks were explained to include, but not be limited to, hemorrhage, infection, injury to adjacent organs, non-diagnostic specimen and adverse reaction to medications administered. The patient voiced understanding and wished to proceed and signed the consent form. PROCEDURAL SEDATION: Procedural sedation was administered under the attending physician's direction and continuous monitoring by a trained nurse specialist who was independent from those actually performing the procedure. Total monitored sedation time was 61 minutes. CORE BIOPSY: The lesion was located in greater omentum and midline in the infraumbilical location and measured 0.5 cm. An appropriate site was localized for core biopsy. The patient's overlying skin was prepped and draped in the usual sterile fashion. Local anesthesia was achieved via subcutaneous and deep administration with 10 mL of Lidocaine 1%. Under realtime ultrasound guidance, 1 pass were made with an 18 gauge BioPince core biopsy needle, 1.0 cm throw, with the use of a 17 gauge introducer needle. A separate more inferior site at midline was localized for core biopsy, then one more pass was made with 1.0 cm throw. The core specimens were placed in formalin and submitted to the personnel training officer service for delivery to Surgical Pathology. No tract embolization was performed. The patient's skin was cleaned and dressed. The patient tolerated the entire procedure well without immediate complications. Dr. David Hernandez M.D., the attending radiologist, was present from the beginning to the end of the procedure. Dr. Thor Lorenzo MD performed the biopsy. Dr. Thor Lorenzo MD (residential aide) was present and participated in the procedure. IMPRESSION: 1. Technically successful ultrasound-guided core needle biopsy of omental nodularity. 2. Partially imaged significantly dilated bowel bowel loops. Patient was not clinically symptomatic today, and reported passing stool. If patient becomes clinically symptomatic, consider abdominal CT with contrast for further evaluation of bowel obstruction. 3. Please see separate Surgical Pathology results for final interpretation. Dictated by: Thor Lorenzo MD The radiology attending physician has personally reviewed this study, and had reviewed and/or edited this written report and agrees with it. Electronically signed by: David Hrenandez M.D. us Suzette Hunt NP [facility] US PROCEDURES Final Re sult * Surgical pathology (11/16/2024 12:25 PM CDT) Tissue (Omentum, Biopsy) 11/16/2024 12:25 PM CDT Narrative PATHOLOGY [facility] - 11/20/2024 2:30 PM CDT EPIC results best viewed via link to PDF [facility] [place] [address] Note to Patients: This report may contain a detailed description of human tissue sent by a health care provider to the laboratory for pathologic evaluation. The content of this report is essential for diagnosis and may provide important critical findings. This information may be unfamiliar to patients to review without a medical professional present. It is advised that the patient review this report in the presence of a health care provider who can answer questions and explain the details. SURGICAL PATHOLOGY REPORT FINAL Patient Name: JOHNY GLORIA Gender: F : 1960 (Age: 64) Address: [address] [place], [place] [id number] Hospital #: [id number] Taken:11/16/2024 Received:11/16/2024 Reported: 11/20/2024 Patient Type: [facility] OP In Bed Service: UNKNOWN Location: [facility] [place] [facility] Physician(s): SENDY Levy DO Diagnosis: A. Omental nodule core in formalin: - Metastatic well differentiated neuroendocrine tumor (WHO grade: 1 of 3); see comment - Ki67 inde: 1.6% (8 in 508 counted cells) xl/11/20/2024 14:30 By this signature, I attest that the above diagnosis is based upon my personal examination of the slides(and/or other material indicated in the diagnosis). Lani Mcallister MD Report Electronically Reviewed and Signed Out By Lani Mcallister MD 11/20/2024 14:30:59 Diagnosis Comment The biopsy shows a proliferation of monotonous epithelioid cells with fine chromatin. The tumor cells are positive for Cam5.2, chromogranin A, and synatophysin. Ki67 index is 1.6% (8 of 508 cells counted). The tumor cells are positive for CDX2, but negative for TTF1. The overall histomorphology and immunophenotype support the diagnosis of well differentiated neuroendocrine tumor, most likely of gastrointestinal tract or pancreas. Clinical and radiographic correlation is recommended. This result was flagged as significant and was sent to Ms. Suzette Hunt via email on 11/20/2025. Reason(s): To the best of our knowledge, this is the first diagnosis of this type of tumor rendered for this patient. History: The patient is a 64-year-old woman presenting for epigastric pain. Operative procedure: Omental nodule core biopsy. Specimen(s) Received: A: Omental nodule core in formalin Gross Description: Received in formalin, labeled with the patient s identifiers and omental nodule core in formalin and consists of four yellow fragmented core(s) of soft tissue measuring 0.2 to 0.5 cm in length x 0.1 cm in diameter. Labeled A1 to A2. Jar 0. elsw/11/16/2024 18:19 PA(s): Jessica Allen By this signature, I attest that the above diagnosis is based upon my personal examination of the slides(and/or other material). Addenda/Procedures The performance characteristics of some immunohistochemical stains, fluorescence in-situ hybridization tests and immunophenotyping by flow cytometry cited in this report (if any) were determined by the Surgical Pathology and Flow Cytometry Departments at [facility] as part of an ongoing manager quality systems program and in compliance with federally mandated regulations drawn from the Clinical Laboratory Improvement Act of 1988 (CLIA '88). Some of these tests rely on the use of analyte specific reagents and are subject to specific labeling requirements by the US Food and Drug Administration. Such diagnostic tests may only be performed in a facility that is certified by the Department of Health and Human Services as a high complexity laboratory under CLIA '88. The FDA has determined that such clearance or approval is not necessary. This test is used for clinical purposes. It should not be regarded as investigational or for research. Nevertheless, federal rules concerning the medical use of analyte specific reagents require that the following disclaimer be attached to the report: This test was developed and its performance characteristics determined by the Surgical Pathology and Flow Cytometry Departments of [facility]. It has not been cleared or approved by the U. S. Food and Drug Administration. IMAGES AND SCANNED DOCUMENTS, IF INCLUDED, ONLY VIEWABLE IN PDF VERSION OF REPORT us Suzette Hunt NP LAB PATHOLOGY ORDERABLES F inal Result PATHOLOGY [facility] [facility] 3rd Floor [place], [place] [phone] * Protime-INR (11/06/2024 8:45 AM CDT) PT 12.1 9.7 - 13.0 sec INR 1.12 0.90 - 1.20 [facility] Comment: Interpretive data Oral anticoagulant therapeutic ranges: Venous thromboembolism prophylaxis or treatment: 2.0-3.0 CARDIOLOGY Standard range: 2.0-3.0 High-intensity range: 2.5-3.5 Refer to indication-specific guidelines for appropriate target ranges for prosthetic heart valve replacement. Current interpretive data was last revised on 2019. Blood 11/06/2024 8:45 AM CDT 11/06/2024 9:04 AM CDT us Suzette Hunt NP LAB BLOOD ORDERABLES Final Result [facility] Department [place] [address] * CT Chest W Contrast (11/05/2024 12:21 PM CDT) Anatomical Region Laterality Modality Body N/A Computed Tomogra phy 11/05/2024 12:5 7 PM CDT Impressions 11/05/2024 12:57 PM CDT 1. Previously noted 3 mm juxtapleural nodule left lower lobe is unchanged and technically indeterminate, recommend attention on follow-up. 2. Otherwise no CT evidence of metastatic disease in the chest. Limited images of the upper abdomen are notable for contrast-filled, significantly distended stomach. Electronically signed by: Eulogio Valle M.D. Narrative 11/05/2024 12:57 PM CDT EXAMINATION: Computed tomography of the chest with intravenous contrast HISTORY: Transfer from outside hospital with mesenteric mass and small bowel obstruction, staging of the chest TECHNIQUE: Transaxial computed tomographic images of the chest were obtained with intravenous contrast according to the standard protocol after the uneventful administration of 75 mL Opti-Ray 350 intravenous contrast. COMPARISON: 11/02/2024 CT abdomen pelvis FINDINGS: There is thyroid is normal. There is no axillary, supraclavicular, mediastinal or hilar lymphadenopathy. Normal heart size, no pericardial effusion. Mild coronary artery calcification. Thoracic aorta main pulmonary artery normal caliber. There is no consolidation. Subsegmental atelectasis in the left greater than right lung bases. Tiny calcified nodules in the right likely represent sequela of prior granulomatous disease. 3 mm subcentimeter nodule along the left lower lobe pleura (series 3 image 100) unchanged from the prior. Within the imaged upper abdomen there are cholecystectomy changes. Ingested oral contrast seen within a moderately distended stomach. Trace ascites. Bilateral breast implants are noted. Bone window show no suspicious lytic or blastic osseous lesion. Procedure Note Eulogio Valle MD - 11/05/2024 EXAMINATION: Computed tomography of the chest with intravenous contrast HISTORY: Transfer from outside hospital with mesenteric mass and small bowel obstruction, staging of the chest TECHNIQUE: Transaxial computed tomographic images of the chest were obtained with intravenous contrast according to the standard protocol after the uneventful administration of 75 mL Opti-Ray 350 intravenous contrast. COMPARISON: 11/02/2024 CT abdomen pelvis FINDINGS: There is thyroid is normal. There is no axillary, supraclavicular, mediastinal or hilar lymphadenopathy. Normal heart size, no pericardial effusion. Mild coronary artery calcification. Thoracic aorta main pulmonary artery normal caliber. There is no consolidation. Subsegmental atelectasis in the left greater than right lung bases. Tiny calcified nodules in the right likely represent sequela of prior granulomatous disease. 3 mm subcentimeter nodule along the left lower lobe pleura (series 3 image 100) unchanged from the prior. Within the imaged upper abdomen there are cholecystectomy changes. Ingested oral contrast seen within a moderately distended stomach. Trace ascites. Bilateral breast implants are noted. Bone window show no suspicious lytic or blastic osseous lesion. IMPRESSION: 1. Previously noted 3 mm juxtapleural nodule left lower lobe is unchanged and technically indeterminate, recommend attention on follow-up. 2. Otherwise no CT evidence of metastatic disease in the chest. Limited images of the upper abdomen are notable for contrast-filled, significantly distended stomach. Electronically signed by: Eulogio Valle M.D. Suzette Hunt NP IMG CT PROCEDURES Final Re sult * Small Bowel Challenge 24 hour Post Injection XR Abdomen Ap 1 Vw (11/05/2024 11:25 AM CDT) Anatomical Region Laterality Modality Body, Abdomen N/A Computed Radiogr aphy 11/05/2024 2:05 PM CDT Impressions 11/06/2024 3:37 PM CDT Contrast is seen throughout mildly dilated loops of small bowel as well as in the decompressed colon and rectum. Mild distention of the stomach. Cholecystectomy clips. Dictated by: Rick Plummer MD The radiology attending physician has personally reviewed this study, and had reviewed and/or edited this written report and agrees with it. Electronically signed by: Edilma Ramirez M.D. Narrative 11/06/2024 3:37 PM CDT EXAMINATION: Abdomen, one view. HISTORY: Bowel obstruction. COMPARISON: Radiograph from 11/04/2024 at 9:15 PM Procedure Note Edilma Ramirez MD - 11/06/2024 EXAMINATION: Abdomen, one view. HISTORY: Bowel obstruction. COMPARISON: Radiograph from 11/04/2024 at 9:15 PM IMPRESSION: Contrast is seen throughout mildly dilated loops of small bowel as well as in the decompressed colon and rectum. Mild distention of the stomach. Cholecystectomy clips. Dictated by: Rick Plummer MD The radiology attending physician has personally reviewed this study, and had reviewed and/or edited this written report and agrees with it. Electronically signed by: Edilma Ramirez M.D. us Debra Nesha Cagle MD IMG XR PROCEDURES Final Resu lt * US Transvaginal (11/05/2024 8:43 AM CDT) Anatomical Region Laterality Modality Pelvis N/A Ultrasound 11/05/2024 8:59 AM CDT Impressions 11/05/2024 9:04 AM CDT 1. Limited visualization of the adnexa given the patient's known small bowel obstruction and multiple dilated loops of small bowel obscuring the areas of interest. The right adnexal mass of concern on the CT scan could not be identified. Recommend either repeating the ultrasound after resolution of the patient's small bowel obstruction or pelvic MRI for further characterization. Dictated by: Kushanth Mallikarjun, M.D. The radiology attending physician has personally reviewed this study, and had reviewed and/or edited this written report and agrees with it. Electronically signed by: Ara Raman M.D. Narrative 11/05/2024 9:04 AM CDT EXAMINATION: TRANSVAGINAL PELVIC SONOGRAM HISTORY: 64-year-old woman with a right adnexal mass seen on CT scan dated 11/02/2024. Hospitalized with a small bowel obstruction, suspected to be secondary to a mesenteric mass. COMPARISON: No prior ultrasound available for comparison. Correlation made to most recent CT scan dated 11/02/2024. FINDINGS: Uterus: The uterus is anteverted and has a length of 5.5 cm, AP dimension of 2.2 cm. The endometrium measures 1.3 mm in thickness. There is a pedunculated hypoechoic lesion with internal vascularity that appears to arise exophytically from the uterus measuring 1 x 0.4 cm (image 4608), which likely represents a pedunculated fibroid, better evaluated on the recent CT scan. There is limited visualization of the adnexa given multiple dilated loops of small bowel. Internal contents are noted in the dilated loops of small bowel. Right ovary: Not identified. In particular, the right adnexal lesion noted on CT scan could not be identified. Left ovary: A structure in the left adnexa which could represent the left ovary measures 1.4 x 0.7 cm, and has arterial blood flow. Other: Small volume interdigitating simple free fluid in the pelvis. Procedure Note Ara Raman MD - 11/05/2024 EXAMINATION: TRANSVAGINAL PELVIC SONOGRAM HISTORY: 64-year-old woman with a right adnexal mass seen on CT scan dated 11/02/2024. Hospitalized with a small bowel obstruction, suspected to be secondary to a mesenteric mass. COMPARISON: No prior ultrasound available for comparison. Correlation made to most recent CT scan dated 11/02/2024. FINDINGS: Uterus: The uterus is anteverted and has a length of 5.5 cm, AP dimension of 2.2 cm. The endometrium measures 1.3 mm in thickness. There is a pedunculated hypoechoic lesion with internal vascularity that appears to arise exophytically from the uterus measuring 1 x 0.4 cm (image 4608), which likely represents a pedunculated fibroid, better evaluated on the recent CT scan. There is limited visualization of the adnexa given multiple dilated loops of small bowel. Internal contents are noted in the dilated loops of small bowel. Right ovary: Not identified. In particular, the right adnexal lesion noted on CT scan could not be identified. Left ovary: A structure in the left adnexa which could represent the left ovary measures 1.4 x 0.7 cm, and has arterial blood flow. Other: Small volume interdigitating simple free fluid in the pelvis. IMPRESSION: 1. Limited visualization of the adnexa given the patient's known small bowel obstruction and multiple dilated loops of small bowel obscuring the areas of interest. The right adnexal mass of concern on the CT scan could not be identified. Recommend either repeating the ultrasound after resolution of the patient's small bowel obstruction or pelvic MRI for further characterization. Dictated by: Miguel A Russell M.D. The radiology attending physician has personally reviewed this study, and had reviewed and/or edited this written report and agrees with it. Electronically signed by: Ara Raman M.D. us Patsy Young MD IMG US PROCEDURES Fi nal Result * eGFR (11/04/2024 9:53 PM CDT) eGFR >90 >=60 mL/min/1. 73 m2 Comment: Interpretive Data Reference Interval Normal >/= 90 mL/min/1.73m2 Mildly decreased* 60 - 89 mL/min/1.73m2 Mildly to moderately decreased 45 - 59 mL/min/1.73m2 Moderately to severely decreased 30 - 44 mL/min/1.73m2 Severely decreased 15 - 29 mL/min/1.73m2 Kidney Failure < 15 mL/min/1.73m2 *Relative to young adult level Estimated glomerular filtration rate is determined by the 2020 CKD-EPI equation recommended by the National Kidney Foundation (A Unifying Approach to GFR Estimation: Recommendations of the NKF-ASK Task Force on Reassessing the Inclusion of Race in Diagnosing Kidney Disease, JASN 2020). The CKD-EPI equation should not be used for patients with unstable renal function and has not been validated in children and those over 70. Current interpretive data was last reviewed 2021. Blood 11/04/2024 9:53 PM CDT 11/04/2024 10:01 PM CDT us Debra Cagle MD LAB BLOOD ORDERABLES Final R esult [facility] [place] [address] * (ABNORMAL) CBC without differential (11/04/2024 9:53 PM CDT) WBC 8.61 3.80 - 9.90 K/cumm Hgb 14.7 11.9 - 15.5 g/dL [facility] Hct 41.7 35.6 - 45.5 % [facility] Plt 255 150 - 400 K/cumm [facility] MPV 10.4 9.1 - 12.3 fL [facility] RBC 5.35(H) 3.90 - 5.20 M/cumm [facility] MCV 77.9(L) 81.3 - 96.4 fL [facility] MCH 27.5 27.1 - 33.3 pg [facility] MCHC 35.3 32.3 - 35.7 g/dL [facility] RDW CV 13.2 11.1 - 14.9 % [facility] RDW SD 37.5 35.7 - 48.1 fL [facility] NRBC abs 0.00 0.00 - 0.01 K/cumm [facility] Blood 11/04/2024 9:53 PM CDT 11/04/2024 10:01 PM CDT us Debra Cagle MD LAB BLOOD ORDERABLES Final R esult [facility] [place] [address] * Phosphorus (11/04/2024 9:53 PM CDT) [facility] Phosphorus, pl 3.4 2.3 - 4.5 mg/dL Blood 11/04/2024 9:53 PM CDT 11/04/2024 10:01 PM CDT us Debra Cagle MD LAB BLOOD ORDERABLES Final R esult Performing Organization Address [facility] Co de Phone Number [facility] Department [place] [address] * Magnesium (11/04/2024 9:53 PM CDT) [facility] Magnesium 1.8 1.4 - 2.5 mg/dL Blood 11/04/2024 9:53 PM CDT 11/04/2024 10:01 PM CDT Debra Cagle MD LAB BLOOD ORDERABLES Final R esult Performing Organization Address [facility] de Phone Number [facility] [place] [address] * (ABNORMAL) Comprehensive metabolic panel (11/04/2024 9:53 PM CDT) [facility] Sodium 144 135 - 145 mmol/L Potassium, pl 3.4 3.3 - 4.9 mmol/L [facility] Chloride 102 97 - 110 mmol/L [facility] CO2 26 22 - 32 mmol/L [facility] Anion gap 16(H) 2 - 15 mmol/L [facility] BUN 7 6 - 25 mg/dL [facility] Creatinine 0.57(L) 0.60 - 1.10 mg/dL [facility] Glucose 76 70 - 199 mg/dL [facility] Comment: Interpretive Data Fasting glucose >/= 126 mg/dl is diagnostic for diabetes. Fasting is defined as no caloric intake for at least 8 hours. Fasting glucose between 100 mg/dl to 125 mg/dl is diagnostic of prediabetes. In a patient with classic symptoms of hyperglycemia or hyperglycemic crisis, a random glucose >/= 200 mg/dl is diagnostic for diabetes. In the absence of unequivocal hyperglycemia, results should be confirmed by repeat testing. The classification and Diagnosis of Diabetes Diabetes Care 2021; 46: S19-S40. Current interpretive data was last revised 2022. Calcium 9.2 8.5 - 10.3 mg/dL [facility] Bilirubin, total 0.6 0.1 - 1.2 mg/dL [facility] Protein, pl 6.8 6.5 - 8.5 g/dL [facility] Comment:Repeated and Verifie d Albumin 4.0 3.5 - 5.0 g/dL [facility] Comment:Repeated and Verifie d Alk phos 60 40 - 130 Units/L [facility] ALT 51(H) 7 - 45 Units/L [facility] AST 50(H) 10 - 45 Units/L [facility] Blood 11/04/2024 9:53 PM CDT 11/04/2024 10:01 PM CDT us Debra Cagle MD LAB BLOOD ORDERABLES Final R esult [facility] Department [place] [address] * Small Bowel Challenge 10 hour Post Injection XR Abdomen Ap 1 Vw (11/04/2024 9:22 PM CDT) Anatomical Region Laterality Modality Body, Abdomen N/A Digital Radiogra phy 11/05/2024 8:45 AM CDT Impressions 11/05/2024 8:45 AM CDT Radiograph from 11/04/2024 at 3:22 PM: Cholecystectomy clips. Contrast is seen in dilated loops of small bowel, ascending and transverse colon as well as the rectum. Radiograph from 11/04/2024 at 9:15 PM: Interval progression of contrast throughout the dilated small bowel and decompressed ascending and descending colon extending to the rectum. Dictated by: Rick Plummer MD The radiology attending physician has personally reviewed this study, and had reviewed and/or edited this written report and agrees with it. Electronically signed by: Amie Call M.D. Narrative 11/05/2024 8:45 AM CDT EXAMINATION: Abdomen, one view. HISTORY: Bowel obstruction. COMPARISON: CT from 11/02/2024 Procedure Note Amie Call MD - 11/05/2024 EXAMINATION: Abdomen, one view. HISTORY: Bowel obstruction. COMPARISON: CT from 11/02/2024 IMPRESSION: Radiograph from 11/04/2024 at 3:22 PM: Cholecystectomy clips. Contrast is seen in dilated loops of small bowel, ascending and transverse colon as well as the rectum. Radiograph from 11/04/2024 at 9:15 PM: Interval progression of contrast throughout the dilated small bowel and decompressed ascending and descending colon extending to the rectum. Dictated by: Rick Plummer MD The radiology attending physician has personally reviewed this study, and had reviewed and/or edited this written report and agrees with it. Electronically signed by: Amie Call M.D. us Debra Cagle MD IMG XR PROCEDURES Final Resu lt * Small Bowel Challenge 4 hour Post Injection XR Abdomen Ap 1 Vw (11/04/2024 3:30 PM CDT) Anatomical Region Laterality Modality Body, Abdomen N/A Digital Radiogra phy 11/05/2024 8:45 AM CDT Impressions 11/05/2024 8:45 AM CDT Radiograph from 11/04/2024 at 3:22 PM: Cholecystectomy clips. Contrast is seen in dilated loops of small bowel, ascending and transverse colon as well as the rectum. Radiograph from 11/04/2024 at 9:15 PM: Interval progression of contrast throughout the dilated small bowel and decompressed ascending and descending colon extending to the rectum. Dictated by: Rick Plummer MD The radiology attending physician has personally reviewed this study, and had reviewed and/or edited this written report and agrees with it. Electronically signed by: Amie Call M.D. Narrative 11/05/2024 8:45 AM CDT EXAMINATION: Abdomen, one view. HISTORY: Bowel obstruction. COMPARISON: CT from 11/02/2024 Procedure Note Amie Call MD - 11/05/2024 EXAMINATION: Abdomen, one view. HISTORY: Bowel obstruction. COMPARISON: CT from 11/02/2024 IMPRESSION: Radiograph from 11/04/2024 at 3:22 PM: Cholecystectomy clips. Contrast is seen in dilated loops of small bowel, ascending and transverse colon as well as the rectum. Radiograph from 11/04/2024 at 9:15 PM: Interval progression of contrast throughout the dilated small bowel and decompressed ascending and descending colon extending to the rectum. Dictated by: Rick Plummer MD The radiology attending physician has personally reviewed this study, and had reviewed and/or edited this written report and agrees with it. Electronically signed by: Amie Call M.D. Debra Cagle MD IMG XR PROCEDURES Final Resu lt * Check Sample (11/04/2024 9:26 AM CDT) Pathologist [facility] ABO Rh A Negative [facility] OTHER 11/04/2024 9:26 AM CDT 11/04/2024 9:35 AM CDT Debra Cagle MD LAB BLOOD ORDERABLES Final R esult [facility] Department [place] [address] [facility] * Inhibin A and B (11/04/2024 9:26 AM CDT) Pathologist [facility] Inhibin A <5.0 pg/mL [facility] Comment: REFERENCE VALUE <98 (Premenopausal) <5.0 (Postmenopausal) ADDITIONAL INFORMATION This test has been modified from the traveling storekeeper's instructions. Its performance characteristics were determined by [facility] in a manner consistent with CLIA requirements. This test has not been cleared or approved by the U.S. Food and Drug Administration. The testing method is an immunoenzymatic assay manufactured by [employer] and performed on the [employer] DxI 800. Values obtained with different assay methods or kits may be different and cannot be used interchangeably. Test results cannot be interpreted as absolute evidence for the presence or absence of malignant disease. Inhibin A values are not interpretable in females for the investigation of malignant disease. Inhibin B <10 pg/mL [facility] Comment: REFERENCE VALUE Premenopausal: <108 pg/mL (Follicular) <80 pg/mL (Luteal) Postmenopausal: <12 pg/mL ADDITIONAL INFORMATION The testing method is a manual immunoenzymatic assay manufactured by [employer]. Values obtained with different assay methods or kits may be different and cannot be used interchangeably. If this test is being ordered as a tumor marker, results cannot be interpreted as absolute evidence for the presence or absence of malignant disease. This test was developed and its performance characteristics determined by [facility] in a manner consistent with CLIA requirements. This test has not been cleared or approved by the U.S. Food and Drug Administration. Test Performed by: [place] [id number] Case Making Machine Operator: James oDnis Ph.D.; CLIA# [id number] Blood 11/04/2024 9:26 AM CDT 11/04/2024 10:07 AM CDT Patsy Young MD LAB BLOOD ORDERABLES Final Result [facility] Department [place] [address] [facility] * Cancer antigen 19-9 (11/04/2024 9:26 AM CDT) CA 19-9 ag 6.6 <=35.0 units/mL Comment: Interpretive Data [employer] CA 19-9 assay procedure was used. Results from different manufacturers or methods may not be comparable. Serial testing should be performed using the same method. Blood 11/04/2024 9:26 AM CDT 11/04/2024 9:37 AM CDT Patsy Young MD LAB BLOOD ORDERABLES Final Result Performing Organization Address [facility] Co de Phone Number [facility] Department [place] [address] * [id number], Tumor Marker (11/04/2024 9:26 AM CDT) alpha Fetoprotein 4.6 <=8.3 ng/mL Comment: Interpretive Data [employer] AFP assay procedure was used. Results from different manufacturers or methods may not be comparable. Serial testing should be performed using the same method. 0-1 month. AFP concentrations may reach or exceed 100,000 ng/mL after depending on gestational age and weight. 1-3 months 50 1000 ng/ml 3-6 months 10 500 ng/ml 6-12 months 3.0 100 ng/ml >1 year 0.0 8.3 ng/ml References Yeny Y. et al. J. Ped Surg 1978;13:155-156 Rin Charles et al. Clin Chem Lab Med 2018;57:783-797 Rocío Driscoll et al. Clin Chem 2014;9055-4460. Current interpretive data was last revised 2022. Blood 11/04/2024 9:26 AM CDT 11/04/2024 9:37 AM CDT Patsy Young MD LAB BLOOD ORDERABLES Final Result Performing Organization Address [facility] Co de Phone Number [facility] Department [place] [address] * CA 125 (11/04/2024 9:26 AM CDT) [facility] CA 125 ag 19.9 0.0 - 38.1 units/mL Comment: Interpretive Data [employer] CA 125 assay procedure was used. Results from different manufacturers or methods may not be comparable. Serial testing should be performed using the same method. Blood 11/04/2024 9:26 AM CDT 11/04/2024 9:37 AM CDT Patsy Young MD LAB BLOOD ORDERABLES Final Result Performing Organization Address [facility] Co de Phone Number [facility] [place] [address] * hCG, blood, quantitative (11/04/2024 9:26 AM CDT) [facility] hCG, quant <5.0 0.0 - 5.0 IUnits/L Comment: Interpretive Data Male: < 5 IU/L Non- premenopausal Female: <5 IU/L [employer] [facility] hCG Beta Quant assay procedure was used. Results from different manufacturers or methods may not be comparable. Serial testing should be performed using the same method. Interpretive Data was last revised on 2023 Blood 11/04/2024 9:26 AM CDT 11/04/2024 9:37 AM CDT Patsy Young MD LAB BLOOD ORDERABLES [place] [address] * Lactate dehydrogenase (LD) (11/04/2024 9:26 AM CDT) [facility] Lactate dehydrogenase (LDH) 149 100 - 250 Units/L Blood 11/04/2024 9:26 AM CDT 11/04/2024 9:37 AM CDT Patsy Young MD LAB BLOOD ORDERABLES Final Result Performing Organization Address [facility] de Phone Number [facility] [place] [address] * CEA (11/04/2024 9:26 AM CDT) CEA <0.6 <=5.0 ng/mL Comment: Interpretive Data: Reference Range: Non-Smokers: 0.0 5.0 ng/mL Smokers: 0.0 6.5 ng/mL [employer] [facility] CEA assay procedure was used. Results from different manufacturers or methods may not be comparable. Serial testing should be performed using the same method. Current interpretive data was last revised 2021. Blood 11/04/2024 9:26 AM CDT 11/04/2024 9:37 AM CDT Patsy Young MD LAB BLOOD ORDERABLES Final Result Performing Organization Address [facility] Co de Phone Number [facility] [place] [address] * POCT glucose (11/03/2024 8:53 PM CDT) Glucose, POC 194 70 - 199 mg/dL Blood 11/03/2024 8:53 PM CDT 11/03/2024 8:53 PM CDT Debra Cagle MD LAB POCT ORDERABLES - DEVICE Final Result Performing Organization Address [facility] Co de Phone Number [facility] [place] [address] * Lactate (11/03/2024 7:33 PM CDT) Lactate 1.8 0.7 - 2.0 mmol/L Blood 11/03/2024 7:33 PM CDT 11/03/2024 7:38 PM CDT Debra Cagle MD LAB BLOOD ORDERABLES Final R esult Performing Organization Address City/[facility]/ZIP Co de Phone Number MAYA [facility] [place] [address] * eGFR (11/03/2024 7:33 PM CDT) eGFR >90 >=60 mL/min/1. 73 m2 Comment: Interpretive Data Reference Interval Normal >/= 90 mL/min/1.73m2 Mildly decreased* 60 - 89 mL/min/1.73m2 Mildly to moderately decreased 45 - 59 mL/min/1.73m2 Moderately to severely decreased 30 - 44 mL/min/1.73m2 Severely decreased 15 - 29 mL/min/1.73m2 Kidney Failure < 15 mL/min/1.73m2 *Relative to young adult level Estimated glomerular filtration rate is determined by the 2020 CKD-EPI equation recommended by the National Kidney Foundation (A Unifying Approach to GFR Estimation: Recommendations of the NKF-ASK Task Force on Reassessing the Inclusion of Race in Diagnosing Kidney Disease, JASN 2020). The CKD-EPI equation should not be used for patients with unstable renal function and has not been validated in children and those over 70. Current interpretive data was last reviewed 2021. Blood 11/03/2024 7:33 PM CDT 11/03/2024 7:37 PM CDT us Debra Cagle MD LAB BLOOD ORDERABLES Final R esult Performing Organization Address City/[facility]/ZIP Co de Phone Number [facility] Department [place] [employer] [place] [address] * Protime-INR (11/03/2024 7:33 PM CDT) PT 12.1 9.7 - 13.0 sec INR 1.12 0.90 - 1.20 [facility] Comment: Interpretive data Oral anticoagulant therapeutic ranges: Venous thromboembolism prophylaxis or treatment: 2.0-3.0 CARDIOLOGY Standard range: 2.0-3.0 High-intensity range: 2.5-3.5 Refer to indication-specific guidelines for appropriate target ranges for prosthetic heart valve replacement. Current interpretive data was last revised on 2019. Blood 11/03/2024 7:33 PM CDT 11/03/2024 7:35 PM CDT us Debra Cagle MD LAB BLOOD ORDERABLES Final R esult Performing Organization Address City/[facility]/ZIP Co de Phone Number [facility] Department [place] [address] * (ABNORMAL) CBC without differential (11/03/2024 7:33 PM CDT) Pathologist [facility] WBC 7.34 3.80 - 9.90 K/cumm Hgb 12.5 11.9 - 15.5 g/dL [facility] Hct 36.5 35.6 - 45.5 % [facility] Plt 209 150 - 400 K/cumm [facility] MPV 10.8 9.1 - 12.3 fL [facility] RBC 4.57 3.90 - 5.20 M/cumm [facility] MCV 79.9(L) 81.3 - 96.4 fL [facility] MCH 27.4 27.1 - 33.3 pg [facility] MCHC 34.2 32.3 - 35.7 g/dL [facility] RDW CV 13.5 11.1 - 14.9 % [facility] RDW SD 38.6 35.7 - 48.1 fL [facility] NRBC abs 0.00 0.00 - 0.01 K/cumm [facility] Blood 11/03/2024 7:33 PM CDT 11/03/2024 7:37 PM CDT Debra Cagle MD LAB BLOOD ORDERABLES Final R esult [facility] Department [place] [address] * Type and screen (11/03/2024 7:33 PM CDT) ABO Rh A Negative Myra, indirect Negative [facility] Blood 11/03/2024 7:33 PM CDT 11/03/2024 7:56 PM CDT Narrative [facility] - 11/03/2024 8:52 PM CDT Has the patient had Daratumumab or Isatuximab in the past 6 months?->Unknown Debra Cagle MD LAB BLOOD BANK TEST ORDERABL ES Final Result Performing Organization Address [facility] de Phone Number [facility] Department [place] [address] * (ABNORMAL) Prealbumin (11/03/2024 7:33 PM CDT) Prealbumin 19.0(L) 20.0 - 40.0 mg/dL Blood 11/03/2024 7:33 PM CDT 11/03/2024 7:38 PM CDT Debra Cagle MD LAB BLOOD ORDERABLES Final R esult Performing Organization Address [facility] de Phone Number [facility] Department [place] [address] * (ABNORMAL) Phosphorus (11/03/2024 7:33 PM CDT) Phosphorus, pl 1.9(L) 2.3 - 4.5 mg/dL Blood 11/03/2024 7:33 PM CDT 11/03/2024 7:37 PM CDT Debra Cagle MD LAB BLOOD ORDERABLES Final R esult Performing Organization Address [facility] Co de Phone Number [facility] Department [place] [address] * (ABNORMAL) Magnesium (11/03/2024 7:33 PM CDT) Pathologist [facility] Magnesium 1.0(L) 1.4 - 2.5 mg/dL Blood 11/03/2024 7:33 PM CDT 11/03/2024 7:37 PM CDT us Debra Cagle MD LAB BLOOD ORDERABLES Final R esult Performing Organization Address City/[facility] Co de Phone Number [facility] Department [place] [address] * (ABNORMAL) Comprehensive metabolic panel (11/03/2024 7:33 PM CDT) [facility] Sodium 139 135 - 145 mmol/L Potassium, pl 3.6 3.3 - 4.9 mmol/L [facility] Chloride 105 97 - 110 mmol/L [facility] CO2 17(L) 22 - 32 mmol/L [facility] Anion gap 17(H) 2 - 15 mmol/L [facility] BUN 6 6 - 25 mg/dL [facility] Creatinine 0.36(L) 0.60 - 1.10 mg/dL [facility] Glucose 58(L) 70 - 199 mg/dL [facility] Comment: Interpretive Data Fasting glucose >/= 126 mg/dl is diagnostic for diabetes. Fasting is defined as no caloric intake for at least 8 hours. Fasting glucose between 100 mg/dl to 125 mg/dl is diagnostic of prediabetes. In a patient with classic symptoms of hyperglycemia or hyperglycemic crisis, a random glucose >/= 200 mg/dl is diagnostic for diabetes. In the absence of unequivocal hyperglycemia, results should be confirmed by repeat testing. The classification and Diagnosis of Diabetes Diabetes Care 2021; 46: S19-S40. Current interpretive data was last revised 2022. Calcium 7.6(L) 8.5 - 10.3 mg/dL [facility] Bilirubin, total 0.3 0.1 - 1.2 mg/dL [facility] Protein, pl 4.2(L) 6.5 - 8.5 g/dL [facility] Albumin 2.5(L) 3.5 - 5.0 g/dL [facility] Alk phos 35(L) 40 - 130 Units/L [facility] ALT 31 7 - 45 Units/L [facility] AST 34 10 - 45 Units/L [facility] Blood 11/03/2024 7:33 PM CDT 11/03/2024 7:37 PM CDT us Debra Cagle MD LAB BLOOD ORDERABLES Final R esult [facility] Department [place] [address] * CT Body Outside Consult (11/03/2024 6:28 PM CDT) Anatomical Region Laterality Modality Body N/A Computed Tomogra phy 11/03/2024 9:17 PM CDT Impressions 11/03/2024 9:17 PM CDT 1. Enlarged mesenteric lymph nodes, some of which contain internal calcifications, with a spiculated 2.8 cm central mesenteric mass with adjacent desmoplastic reaction that tethers a loop of jejunum, resulting in a upstream small bowel obstruction. There is mild thickening and mesenteric edema of several loops of jejunum, which could be reactive, but could also be seen in setting of early bowel ischemia. Recommend correlation with serum lactate. 2. While the above findings could represent a primary carcinoid tumor with mesenteric skye metastatic disease, there is also a right adnexal mass which contains a calcification measuring 4.2 cm, with extensive omental and peritoneal carcinomatosis with small volume ascites. This degree of omental and peritoneal carcinomatosis is atypical for carcinoid tumor and could be seen in setting of a metastatic ovarian mucinous primary. 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 Consider correlation with ovarian tumor markers and consider further evaluation with DOTATATE PET/CT if tumor markers are unrevealing. Alternatively, one of the anterior omental nodules could be considered for percutaneous biopsy if feasible. 3. Small 3 mm subpleural left lower lobe pulmonary nodule, which is indeterminate. Further attention on follow-up imaging pending oncologic workup. The findings, conclusions and recommendations within this report do not replace the initial findings, conclusions and recommendations made at the facility where the study was performed based upon the imaging and clinical condition at that time. Comparison with the prior report and clinical history is necessary. The provided images may or may not represent the [place] source data set and thus may contain changes that may lower the accuracy of this second-opinion interpretation. Electronically signed by: Brigida Pagan M.D. Narrative 11/03/2024 9:17 PM CDT EXAMINATION: RADIOLOGY CONSULTATION ON OUTSIDE IMAGING STUDY STUDY INITIALLY PERFORMED: 11/02/2024 at [facility]. TYPE OF STUDY: Multiple CT images of the abdomen pelvis with intravenous contrast are provided at the time of this interpretation. CONTRAST ROUTE: Contrast was administered via the intravenous route. The protocol was adequate to address the clinical question. The outside final report was not available at the time of this second opinion interpretation. TYPE OF CONSULTATION: Consult on outside imaging study with images submitted through Outside Image Sharing Service DATE OF CONSULTATION: 11/03/2024 8:57 PM HISTORY: 64-year-old with nausea vomiting. No additional history is provided at the time of interpretation of this CT. COMPARISON: None available. FINDINGS: Subpleural 3 mm left lower lobe nodule (series 4, image 7). Heart size is normal without pericardial effusion. Small hiatal hernia. Breast implants partially imaged. No suspicious liver lesion. No biliary duct dilation. Cholecystectomy. Pancreas and spleen are normal. Normal adrenals. Right and left extrarenal pelvises. There are multiple mildly enlarged mesenteric lymph nodes, one of which contains a calcification measuring approximately 1.4 cm. There is an additional node that measures 1.2 cm (series 3, image 93). Additional smaller mesenteric nodes (series 3, image 81). There is a spiculated mesenteric mass in the central mesentery that tethers a loop of small bowel measuring approximately 2.8 x 2.0 cm. Upstream to this mass, there are multiple dilated loops of jejunum, some of which are mildly thickened with mild mesenteric edema, consistent with a small bowel obstruction. There are multiple prominent omental nodules measuring up to 9 mm in the left anterior omentum (series 3, image 125), with additional omental nodularity inferiorly in the midline (series 3, image 136), suspicious for an omental carcinomatosis. There are also findings of peritoneal carcinomatosis with peritoneal fluid and thickening of the left paracolic gutter (series 3, image 80). There is also subtle omental nodularity in the left upper quadrant. There is small volume pelvic ascites with pelvic peritoneal deposits (series 3, image 137). There is a 4.2 x 2.8 cm right adnexal mass with a calcification (series 3, image 133). The left adnexa is normal. Uterus is present. There is no retroperitoneal lymphadenopathy. The celiac, superior mesenteric, renal and inferior mesenteric arteries are patent. Urinary bladder is unremarkable. No pelvic lymphadenopathy. Small with stool in rectum. Colonic diverticulosis. Normal appendix. Duodenal sweep is nondilated. Stomach are unremarkable. No acute fracture or suspicious osseous lesion. Procedure Note Brigida Pagan MD - 11/03/2024 EXAMINATION: RADIOLOGY CONSULTATION ON OUTSIDE IMAGING STUDY STUDY INITIALLY PERFORMED: 11/02/2024 at [facility]. TYPE OF STUDY: Multiple CT images of the abdomen pelvis with intravenous contrast are provided at the time of this interpretation. CONTRAST ROUTE: Contrast was administered via the intravenous route. The protocol was adequate to address the clinical question. The outside final report was not available at the time of this second opinion interpretation. TYPE OF CONSULTATION: Consult on outside imaging study with images submitted through Outside Image Sharing Service DATE OF CONSULTATION: 11/03/2024 8:57 PM HISTORY: 64-year-old with nausea vomiting. No additional history is provided at the time of interpretation of this CT. COMPARISON: None available. FINDINGS: Subpleural 3 mm left lower lobe nodule (series 4, image 7). Heart size is normal without pericardial effusion. Small hiatal hernia. Breast implants partially imaged. No suspicious liver lesion. No biliary duct dilation. Cholecystectomy. Pancreas and spleen are normal. Normal adrenals. Right and left extrarenal pelvises. There are multiple mildly enlarged mesenteric lymph nodes, one of which contains a calcification measuring approximately 1.4 cm. There is an additional node that measures 1.2 cm (series 3, image 93). Additional smaller mesenteric nodes (series 3, image 81). There is a spiculated mesenteric mass in the central mesentery that tethers a loop of small bowel measuring approximately 2.8 x 2.0 cm. Upstream to this mass, there are multiple dilated loops of jejunum, some of which are mildly thickened with mild mesenteric edema, consistent with a small bowel obstruction. There are multiple prominent omental nodules measuring up to 9 mm in the left anterior omentum (series 3, image 125), with additional omental nodularity inferiorly in the midline (series 3, image 136), suspicious for an omental carcinomatosis. There are also findings of peritoneal carcinomatosis with peritoneal fluid and thickening of the left paracolic gutter (series 3, image 80). There is also subtle omental nodularity in the left upper quadrant. There is small volume pelvic ascites with pelvic peritoneal deposits (series 3, image 137). There is a 4.2 x 2.8 cm right adnexal mass with a calcification (series 3, image 133). The left adnexa is normal. Uterus is present. There is no retroperitoneal lymphadenopathy. The celiac, superior mesenteric, renal and inferior mesenteric arteries are patent. Urinary bladder is unremarkable. No pelvic lymphadenopathy. Small with stool in rectum. Colonic diverticulosis. Normal appendix. Duodenal sweep is nondilated. Stomach are unremarkable. No acute fracture or suspicious osseous lesion. IMPRESSION: 1. Enlarged mesenteric lymph nodes, some of which contain internal calcifications, with a spiculated 2.8 cm central mesenteric mass with adjacent desmoplastic reaction that tethers a loop of jejunum, resulting in a upstream small bowel obstruction. There is mild thickening and mesenteric edema of several loops of jejunum, which could be reactive, but could also be seen in setting of early bowel ischemia. Recommend correlation with serum lactate. 2. While the above findings could represent a primary carcinoid tumor with mesenteric skye metastatic disease, there is also a right adnexal mass which contains a calcification measuring 4.2 cm, with extensive omental and peritoneal carcinomatosis with small volume ascites. This degree of omental and peritoneal carcinomatosis is atypical for carcinoid tumor and could be seen in setting of a metastatic ovarian mucinous primary. 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 Consider correlation with ovarian tumor markers and consider further evaluation with DOTATATE PET/CT if tumor markers are unrevealing. Alternatively, one of the anterior omental nodules could be considered for percutaneous biopsy if feasible. 3. Small 3 mm subpleural left lower lobe pulmonary nodule, which is indeterminate. Further attention on follow-up imaging pending oncologic workup. The findings, conclusions and recommendations within this report do not replace the initial findings, conclusions and recommendations made at the facility where the study was performed based upon the imaging and clinical condition at that time. Comparison with the prior report and clinical history is necessary. The provided images may or may not represent the [place] source data set and thus may contain changes that may lower the accuracy of this second-opinion interpretation. Electronically signed by: Brigida Pagan M.D. us Gracie Newberry MD IMG CT PROCEDURES Final Re sult from Last 3 Months Insurance [place] Direct[place] For more information, please contact: [phone] Documents on File Type Date Recorded Patient Youth Care Professional Expl anation ADVANCE DIRECTIVE 12/25/2024 8:48 AM Power of Retail Loss Prevention Investigator-Financial/Medical * Full Code (Latest Code Status on File) Date Activated Date Inactivated Comments 12/25/2024 5:01 PM 01/02/2025 3:32 PM * Full Code Date Activated Date Inactivated Comments 12/11/2024 10:52 AM 12/19/2024 3:11 PM * Full Code Date Activated Date Inactivated Comments 11/16/2024 10:42 AM 11/17/2024 4:32 AM * Full Code Date Activated Date Inactivated Comments 11/03/2024 4:09 PM 11/06/2024 5:31 PM Care Teams Supervisor Metalizing Relationship Specialty Start Date End Date David Marmolejo DO PCP - General Internal Medicine 01/15/21 Debra Cagle MD [id number] [place] [address] PCP - Home Infusion Attending General Surgery 12/19/24 Melanie Pandya [facility] Pharmacist Pharmacy 12/18/24
--- OUTSIDE RECORDS SUMMARY | 2025-01-17 19:23 | XMS_ITS | Encounter Summary ---
Author Organization [facility] Address [address] [place] [address] Phone Care Team Providers Care Atmospheric Scientist Name Role Phone Provider, Unknown Primary Care Provider Unavaila ble Encounter Details Date Type Department Care Team (Late st Contact Info) Description 01/07/2025 Lab Requisition [facility] Laboratory Services [address] [place] [address] Debra Cagle MD [address] [place] [address] Malignant neoplasm of liver, not specified as primary or secondary (HCC) Social History Tobacco Use Types Packs/Day Years Used Date Smoking Tobacco: Never Assessed Comments Unknown Sex and Gender Information Value Date Recorded Sex Assigned at Not on file Legal Sex Female 2:31 PM CDT Gender Identity Not on file Sexual Orientation Not on file documented as of this encounter Plan of Treatment Upcoming Encounters Date Type Department Care Team (Late st Contact Info) Description 01/21/2025 1:00 AM CDT [facility] [address] [place] [address] Iona Vanessa RN [place] 01/28/2025 1:00 AM CDT [facility] [address] [place] [address] Iona Vanessa RN [place] 02/04/2025 1:00 AM CDT [facility] [address] [place] [address] Iona Vanessa RN [place] 02/11/2025 1:00 AM CDT Appointment [facility] [address] [place] [address] Iona Vanessa RN [place] documented as of this encounter Procedures Procedure Name Priority Date/Time Associated Diagnosis Comments CBC WITH AUTO DIFFERENTIAL Routine 01/07/2025 2:15 PM CDT Malignant neoplasm of liver, not specified as primary or secondary (HCC) PHOSPHORUS (PO4) Routine 01/07/2025 2:15 PM CDT Malignant neoplasm of liver, not specified as primary or secondary (HCC) MAGNESIUM (MG) Routine 01/07/2025 2:15 PM CDT Malignant neoplasm of liver, not specified as primary or secondary (HCC) CMP (COMPREHENSIVE METABOLIC PANEL) Routine 01/07/2025 2:15 PM CDT Malignant neoplasm of liver, not specified as primary or secondary (HCC) COMPLETE BLOOD COUNT (CBC) WITH DIFF Routine 01/07/2025 2:15 PM CDT Malignant neoplasm of liver, not specified as primary or secondary (HCC) documented in this encounter Results * (ABNORMAL) CBC WITH AUTO DIFFERENTIAL (01/07/2025 2:15 PM CDT) WBC 9.84 4.00 - 12.00 10(3)/mcL 01/07/2025 3:08 PM CDT [facility] RBC 3.56(L) 3.80 - 5.30 10(6)/mcL 01/07/2025 3:08 PM CDT [facility] HEMOGLOBIN (HGB) 10.0(L) 12.0 - 15.8 g/dL 01/07/2025 3:08 PM CDT [facility] HEMATOCRIT (HCT) 30.9(L) 36.0 - 47.0 % 01/07/2025 3:08 PM CDT [facility] MCV 86.8 82.0 - 96.0 fL 01/07/2025 3:08 PM CDT [facility] MCH 28.1 26.0 - 34.0 pg 01/07/2025 3:08 PM CDT [facility] MCHC 32.4 31.0 - 36.0 g/dL 01/07/2025 3:08 PM CDT [facility] PLATELET COUNT 610(H) 140 - 440 10(3)/mcL 01/07/2025 3:08 PM CDT [facility] RDW 17.3(H) 11.8 - 15.5 % 01/07/2025 3:08 PM CDT [facility] MPV 9.7 9.7 - 12.4 fL 01/07/2025 3:08 PM CDT [facility] NEUTROPHILS 73.6(H) 47.0 - 73.0 % 01/07/2025 3:08 PM CDT [facility] LYMPHOCYTES 12.4(L) 18.0 - 42.0 % 01/07/2025 3:08 PM CDT [facility] MONOCYTES 8.7 4.0 - 12.0 % 01/07/2025 3:08 PM CDT [facility] EOSINOPHILS 3.5 0.0 - 5.0 % 01/07/2025 3:08 PM CDT [facility] BASOPHILS 1.1(H) 0.0 - 1.0 % 01/07/2025 3:08 PM CDT [facility] IMMATURE GRANULOCYTE 0.7(H) 0.0 - 0.4 % 01/07/2025 3:08 PM CDT [facility] Comment:Immature Granulocyte s includes Metamyelocytes, Myelocytes, and Promyelocytes. ABSOLUTE NEUTROPHILS 7.24 1.60 - 7.70 10(3)/mcL 01/07/2025 3:08 PM CDT [facility] ABSOLUTE LYMPHOCYTES 1.22(L) 1.30 - 3.20 10(3)/mcL 01/07/2025 3:08 PM CDT [facility] ABSOLUTE MONOCYTES 0.86 0.20 - 1.00 10(3)/mcL 01/07/2025 3:08 PM CDT [facility] ABSOLUTE EOSINOPHIL 0.34 0.00 - 0.40 10(3)/mcL 01/07/2025 3:08 PM CDT [facility] ABSOLUTE BASOPHILS 0.11(H) 0.00 - 0.10 10(3)/mcL 01/07/2025 3:08 PM CDT [facility] ABSOLUTE IMMATURE GRANULOCYTE 0.07(H) 0.00 - 0.03 10 (3) mcL. 01/07/2025 3:08 PM CDT [facility] NRBC PER 100 WBC 0 01/08/20 3:08 PM CDT [facility] Blood No Phlebotomy Charged / Unknown 01/07/2025 2:15 PM CDT 01/07/2025 3:05 PM CDT us Debra Cagle MD HEMATOLOGY ORDERABLES Final Result Performing Organization Address City/[facility]/ZIP Co de Phone Number [facility] [place] [address] * MAGNESIUM (MG) (01/07/2025 2:15 PM CDT) MAGNESIUM 1.8 1.6 - 2.6 mg/dL 01/07/2025 3:28 PM CDT [facility] Blood No Phlebotomy Charged / Unknown 01/07/2025 2:15 PM CDT 01/07/2025 3:05 PM CDT Debra Cagle MD CHEMISTRY ORDERABLES Final R esult [facility] [place] [address] * PHOSPHORUS (PO4) (01/07/2025 2:15 PM CDT) PHOSPHORUS 4.2 2.5 - 4.5 mg/dL 01/07/2025 3:28 PM CDT [facility] Blood No Phlebotomy Charged / Unknown 01/07/2025 2:15 PM CDT 01/07/2025 3:05 PM CDT us Debra Cagle MD CHEMISTRY ORDERABLES Final R esult [facility] [place] [address] * (ABNORMAL) CMP (COMPREHENSIVE METABOLIC PANEL) (01/07/2025 2:15 PM CDT) [facility] SODIUM 135(L) 136 - 145 mmol/L 01/07/2025 3:28 PM CDT [facility] POTASSIUM 3.5 3.5 - 5.1 mmol/L 01/07/2025 3:28 PM CDT [facility] CHLORIDE 105 98 - 107 mmol/L 01/07/2025 3:28 PM CDT [facility] CO2, VENOUS 20(L) 22 - 30 mmol/L 01/07/2025 3:28 PM CDT [facility] ANION GAP 13.5 <18.0 mmol/L 01/07/2025 3:28 PM CDT [facility] GLUCOSE 121(H) 70 - 99 mg/dL 01/07/2025 3:28 PM CDT [facility] BUN 15 10 - 20 mg/dL 01/07/2025 3:28 PM CDT [facility] CREATININE, BLOOD 0.43(L) 0.60 - 1.00 mg/dL 01/07/2025 3:28 PM CDT [facility] BUN/CREATININE RATIO 35(H) 12 - 20 ratio 01/07/2025 3:28 PM CDT [facility] TOTAL PROTEIN 6.7 6.0 - 8.0 g/dL 01/07/2025 3:28 PM CDT [facility] ALBUMIN 3.3(L) 3.5 - 5.0 g/dL 01/07/2025 3:28 PM CDT [facility] A/G RATIO 1.0 1.0 - 2.2 01/07/2025 3:28 PM CDT [facility] CALCIUM 9.2 8.7 - 10.5 mg/dL 01/07/2025 3:28 PM CDT [facility] T BILI 0.3 0.2 - 1.2 mg/dL 01/07/2025 3:28 PM CDT [facility] SGOT (AST) 94(H) <43 U/L 01/07/2025 3:28 PM CDT [facility] SGPT (ALT) 100(H) <56 U/L 01/07/2025 3:28 PM CDT [facility] ALKALINE PHOSPHATASE 107 40 - 150 U/L 01/07/2025 3:28 PM CDT [facility] GFR, ESTIMATED >60 >=60 01/07/2025 3:28 PM CDT [facility] Comment: Creatinine Clearance is the preferred criteria for selecting drug dose adjustments in renally impaired patients. The GFR is provided as additional pertinent clinical information. GFR is reported in mL/min/1.73 sq m. Calculation based on the Chronic Kidney Disease Epidemiology Collaboration (CKD- EPI) equation refit without adjustment for race. GFR, EST. >60 >=60 025 3:28 PM CDT [facility] GFR, EST. NONAFRICAN >60 >=60 01/07/2025 3:28 PM CDT [facility] Blood No Phlebotomy Charged / Unknown 01/07/2025 2:15 PM CDT 01/07/2025 3:05 PM CDT us Debra Cagle MD CHEMISTRY ORDERABLES Final R esult [facility] [place] [address] documented in this encounter Visit Diagnoses Diagnosis Malignant neoplasm of liver, not specified as primary or secondary (HCC) Malignant neoplasm of liver, not specified as primary or secondary documented in this encounter Care Teams Atmospheric Scientist Relationship Specialty Start Date End Date Provider, Unknown UNKNOWN PCP - General 01/08/25 documented as of this encounter
--- OUTSIDE RECORDS SUMMARY | 2025-01-17 19:23 | XMS_ITS | Encounter Summary ---
Author Organization [facility] Healthcare Address [address] [place] [address] Care Team Providers Care Photographic Engineer Name Role Phone David Marmolejo DO Primary Care Provider [phone] Melanie Pandya [facility] Unavailable Unavailable Debra Cagle MD Unavailable [phone] Encounter Details Date Type Department Care Team (Late st Contact Info) Description 01/14/2025 Home Infusion [facility] Home Infusion Therapy [address] [place] [address] Brittney Mcwilliams [facility] Social History Tobacco Use Types Packs/Day Years Used Date Smoking Tobacco: Former Cigarettes 0.8 15 1 977 - 1991 Passive Smoke Exposure: Past [facility] Utilities Answer Date Recorded In the past 12 months has [employer], gas, oil, or water [employer] threatened to shut off services in your [...] often do you attend chur ch or mandaen services? Never 12/28/2024 Do you belong to any clubs o r organizations such as cheondoism groups, unions, fraternal or athletic groups, or [...] any time in the past 12 m [facility], were you homeless or living in a care home (including now)? No 12/28/2024 Personal Safety Answer Date Recorded Have you ever been in or are you currently in a harmful physical or emotional relationship or is someone making you feel afraid or unsafe? Denies 12/26/2024 Comments No Sex and Gender Information Value Date Recorded Sex Assigned at Not on file Legal Sex Female 8:02 AM PROCESS DEVELOPMENT CHEMIST Gender Identity Not on file Sexual Orientation Not on file documented as of this encounter Plan of Treatment Not on file documented as of this encounter Visit Diagnoses Not on filedocumented in this encounter Care Teams Photographic Engineer Relationship Specialty Start Date End Date David Marmolejo DO PCP - General Internal Medicine 01/15/21 Debra Cagle MD [phone] [place] [address] PCP - Home Infusion Attending General Surgery 12/19/24 Melanie Pandya, [facility] Pharmacist Pharmacy 12/18/24 documented as of this encounter
--- OUTSIDE RECORDS SUMMARY | 2025-01-17 19:23 | XMS_ITS | Encounter Summary ---
Author Organization [facility] Address [address] [place] [address] Phone Care Team Providers Care Booker Name Role Phone David Marmolejo DO Primary Care Provider [phone] Melanie Pandya [facility] Unavailable Unavailable Debra Cagle MD Unavailable [phone] Encounter Details Date Type Department Care Team (Late st Contact Info) Description 06/10/2021 Orders Only [facility] Scanning, Provider Social History Tobacco Use Types Packs/Day Years Used Date Smoking Tobacco: Never Assessed Comments Unknown Sex and Gender Information Value Date Recorded Sex Assigned at Not on file Legal Sex Female 8:02 AM MAKE UP MAN Gender Identity Not on file Sexual Orientation [...] Diagnoses Not on filedocumented in this encounter Additional Health Concerns Infection Onset Date Last Indicated Resolved Time C. difficile suspected 12/30/2024 12/30/202412/30 10:43 AM CDT documented as of this encounter Care Teams Booker Relationship Specialty Start Date End Date David Marmolejo DO PCP - General Internal Medicine 01/15/21 Debra Cagle MD [phone] [place] [address] PCP - Home Infusion Attending General Surgery 12/19/24 Melanie Pandya, [facility] Pharmacist Pharmacy 12/18/24 documented as of this encounter
--- OUTSIDE RECORDS SUMMARY | 2025-01-17 19:23 | XMS_ITS | Encounter Summary ---
Author Organization [facility] Address [address] [place] [address] Phone Care Team Providers Care Credit Collections Specialist Name Role Phone Provider, Unknown Primary Care Provider Unavaila ble Reason for Visit * Reason Onset Date Comments Returning call. 01/16/2025 Encounter Details Date Type Department Care Team (Late Contact Info) Description [facility] [address] [place] [address] Ree Alvarez, RN [place] Returning call. Social History Tobacco Use Types Packs/Day Years Used Date Smoking Tobacco: Never Assessed Comments Unknown Sex and Gender Information Value Date Recorded Sex Assigned at Not on file Legal Sex Female 2:31 PM CDT Gender Identity Not on file Sexual Orientation Not on file documented as of this encounter Miscellaneous Notes * Telephone Encounter - Ree Alvarez RN - 01/16/2025 4:05 PM CDT 1601 - Received call from Ann TONEY with [facility] stating that she had received a message from [employer]ue asking for the NIKI to be signed. She stated she would follow through with the request. If signed NIKI not received by tomorrow please call her at [phone]. Thank you! documented in this encounter Plan of Treatment Upcoming Encounters Date Type Department Care Team (Late st Contact Info) Description 01/21/2025 1:00 AM CDT [facility] [address] [place] [address] Iona Vanessa, [place] 01/28/2025 1:00 AM CDT Home Care Visit [address] [address] Iona Vanessa RN [place] 02/04/2025 1:00 AM CDT Home Care Visit [address] [address] Iona Vanessa RN [place] 02/11/2025 1:00 AM CDT Appointment [address] [address] Iona Vanessa, RN [place] documented as of this encounter Visit Diagnoses Not on filedocumented in this encounter Care Teams Credit Collections Specialist Relationship Specialty Start Date End Date Provider, Unknown UNKNOWN PCP - General 01/08/25 documented as of this encounter
--- OUTSIDE RECORDS SUMMARY | 2025-01-17 19:23 | XMS_ITS | Encounter Summary ---
Author Organization [facility] Address [address] [place] [address] Phone Care Team Providers Care Dental Professional Name Role Phone David Marmolejo DO Primary Care Provider [phone] Melanie Pandya [facility] Unavailable Unavailable Debra Cagle MD Unavailable [phone] Encounter Details Date Type Department Care Team (Late st Contact Info) Description 08/16/2020 Orders Only [facility] Scanning, Provider Social History Tobacco Use Types Packs/Day Years Used Date Smoking Tobacco: Never Assessed Comments Unknown Sex and Gender Information Value Date Recorded Sex Assigned at Not on file 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
--- OUTSIDE RECORDS SUMMARY | 2025-01-17 19:23 | XMS_ITS | Encounter Summary ---
Author Organization [facility] Address [address] [place] [address] Phone Care Team Providers Care Chief Engineer Research Name Role Phone Provider, Unknown Primary Care Provider Unavaila ble Encounter Details Date Type Department Care Team (Late st Contact Info) Description 01/14/2025 Lab Requisition [facility] Laboratory Services [address] [place] [address] Debra Cagle MD [address] [place] [address] Malignant neoplasm of liver, not specified as [...] [facility] [address] [place] [address] Iona Vanessa RN [place] 01/28/2025 1:00 AM CDT [facility] [address] [place] [address] Iona Vanessa RN [place] 02/04/2025 1:00 AM CDT [facility] [address] [place] [address] Iona Vanessa RN [place] 02/11/2025 1:00 AM CDT Appointment [facility] [address] [place] [address] Iona Vanessa RN [place] documented as of this encounter Procedures Procedure Name Priority Date/Time Associated Diagnosis Comments CBC WITH AUTO DIFFERENTIAL Routine 01/14/2025 1:05 AM CDT Malignant neoplasm of liver, not specified as primary or secondary (HCC) PHOSPHORUS (PO4) Routine 01/14/2025 1:05 AM CDT Malignant neoplasm of liver, not specified as primary or secondary (HCC) MAGNESIUM (MG) Routine 01/14/2025 1:05 AM CDT Malignant neoplasm of liver, not specified as primary or secondary (HCC) CMP (COMPREHENSIVE METABOLIC PANEL) Routine 01/14/2025 1:05 AM CDT Malignant neoplasm of liver, not specified as primary or secondary (HCC) COMPLETE BLOOD COUNT (CBC) WITH DIFF Routine 01/14/2025 1:05 AM CDT Malignant neoplasm of liver, not specified as primary or secondary (HCC) documented in this encounter Results * (ABNORMAL) CBC WITH AUTO DIFFERENTIAL (01/14/2025 1:05 AM CDT) WBC 7.78 4.00 - 12.00 10(3)/mcL 01/14/2025 12:15 PM CDT [facility] RBC 3.69(L) 3.80 - 5.30 10(6)/mcL 01/14/2025 12:15 PM CDT [facility] HEMOGLOBIN (HGB) 10.3(L) 12.0 - 15.8 g/dL 01/14/2025 12:15 PM CDT [facility] HEMATOCRIT (HCT) 32.7(L) 36.0 - 47.0 % 01/14/2025 12:15 PM CDT [facility] MCV 88.6 82.0 - 96.0 fL 01/14/2025 12:15 PM CDT [facility] MCH 27.9 26.0 - 34.0 pg 01/14/2025 12:15 PM CDT [facility] MCHC 31.5 31.0 - 36.0 g/dL 01/14/2025 12:15 PM CDT [facility] PLATELET COUNT 389 140 - 440 10(3)/mcL 01/14/2025 12:15 PM CDT [facility] RDW 17.0(H) 11.8 - 15.5 % 01/14/2025 12:15 PM CDT [facility] MPV 10.2 9.7 - 12.4 fL 01/14/2025 12:[address] [facility] NEUTROPHILS 68.7 47.0 - 73.0 % 01/14/2025 12:[address] [facility] LYMPHOCYTES 13.1(L) 18.0 - 42.0 % 01/14/2025 12:[address] [facility] MONOCYTES 10.7 4.0 - 12.0 % 01/14/2025 12:[address] [facility] EOSINOPHILS 5.5(H) 0.0 - 5.0 % 01/14/2025 12:[address] [facility] BASOPHILS 1.2(H) 0.0 - 1.0 % 01/14/2025 12:15 PM CDT [facility] IMMATURE GRANULOCYTE 0.8(H) 0.0 - 0.4 % 01/14/2025 12:[address] [facility] Comment:Immature Granulocyte s includes Metamyelocytes, Myelocytes, and Promyelocytes. ABSOLUTE NEUTROPHILS 5.35 1.60 - 7.70 10(3)/mcL 01/14/2025 12:[address] [facility] ABSOLUTE LYMPHOCYTES 1.02(L) 1.30 - 3.20 10(3)/mcL 01/14/2025 12:15 PM CDT [facility] ABSOLUTE MONOCYTES 0.83 0.20 - 1.00 10(3)/mcL 01/14/2025 12:15 PM CDT [facility] ABSOLUTE EOSINOPHIL 0.43(H) 0.00 - 0.40 10(3)/mcL 01/14/2025 12:15 PM CDT [facility] ABSOLUTE BASOPHILS 0.09 0.00 - 0.10 10(3)/mcL 01/14/2025 12:15 PM CDT [facility] ABSOLUTE IMMATURE GRANULOCYTE 0.06(H) 0.00 - 0.03 10 (3) mcL. 01/14/2025 12:15 PM CDT [facility] NRBC PER 100 WBC 0 01/15/20 12:15 PM CDT [facility] Blood No Phlebotomy Charged / Unknown 01/14/2025 1:05 AM CDT 01/14/2025 12:12 PM CDT us Debra Cagle MD HEMATOLOGY ORDERABLES Final Result Performing Organization Address City/[facility]/ZIP Co de Phone Number [facility] [place] [address] * MAGNESIUM (MG) (01/14/2025 1:05 AM CDT) [facility] MAGNESIUM 2.0 1.6 - 2.6 mg/dL 01/14/2025 12:48 PM CDT [facility] Blood No Phlebotomy Charged / Unknown 01/14/2025 1:05 AM CDT 01/14/2025 12:03 PM CDT Debra Cagle MD CHEMISTRY ORDERABLES Final R esult Performing Organization Address City/[facility]/ZIP Co de Phone Number [facility] [place] [address] * PHOSPHORUS (PO4) (01/14/2025 1:05 AM CDT) PHOSPHORUS 3.7 2.5 - 4.5 mg/dL 01/14/2025 12:[address] [facility] Blood No Phlebotomy Charged / Unknown 01/14/2025 1:05 AM CDT 01/14/2025 12:03 PM CDT us Debra Cagle MD CHEMISTRY ORDERABLES Final R esult [facility] [place] [address] * (ABNORMAL) CMP (COMPREHENSIVE METABOLIC PANEL) (01/14/2025 1:05 AM CDT) SODIUM 138 136 - 145 mmol/L 01/14/2025 12:[address] [facility] POTASSIUM 3.5 3.5 - 5.1 mmol/L 01/14/2025 12:[address] [facility] CHLORIDE 107 98 - 107 mmol/L 01/14/2025 12:[address] [facility] CO2, VENOUS 21(L) 22 - 30 mmol/L 01/14/2025 12:[address] [facility] ANION GAP 13.5 <18.0 mmol/L 01/14/2025 12:[address] [facility] GLUCOSE 127(H) 70 - 99 mg/dL 01/14/2025 12:[address] [facility] BUN 14 10 - 20 mg/dL 01/14/2025 12:[address] [facility] CREATININE, BLOOD 0.40(L) 0.60 - 1.00 mg/dL 01/14/2025 12:[address] [facility] BUN/CREATININE RATIO 35(H) 12 - 20 ratio 01/14/2025 12:[address] [facility] TOTAL PROTEIN 6.6 6.0 - 8.0 g/dL 01/14/2025 12:[address] [facility] ALBUMIN 3.4(L) 3.5 - 5.0 g/dL 01/14/2025 12:[address] [facility] A/G RATIO 1.1 1.0 - 2.2 01/14/2025 12:[address] [facility] CALCIUM 8.8 8.7 - 10.5 mg/dL 01/14/2025 12:48 PM CDT [facility] T BILI 0.4 0.2 - 1.2 mg/dL 01/14/2025 12:48 PM CDT [facility] SGOT (AST) 96(H) <43 U/L 01/14/2025 12:[address] [facility] SGPT (ALT) 85(H) <56 U/L 01/14/2025 12:[address] [facility] ALKALINE PHOSPHATASE 116 40 - 150 U/L 01/14/2025 12:[address] [facility] GFR, ESTIMATED >60 >=60 01/14/2025 12:[address] [facility] Comment: Creatinine Clearance is the preferred criteria for selecting drug dose adjustments in renally impaired patients. The GFR is provided as additional pertinent clinical information. GFR is reported in mL/min/1.73 sq m. Calculation based on the Chronic Kidney Disease Epidemiology Collaboration (CKD- EPI) equation refit without adjustment for race. GFR, EST. >60 >=60 025 12:[address] [facility] GFR, EST. NONAFRICAN >60 >=60 01/14/2025 12:[address] [facility] Blood No Phlebotomy Charged / Unknown 01/14/2025 1:05 AM CDT 01/14/2025 12:03 PM CDT us Debra Cagle MD CHEMISTRY ORDERABLES Final R esult [facility] [place] [address] documented in this encounter Visit Diagnoses Diagnosis Malignant neoplasm of liver, not specified as primary or secondary (HCC) Malignant neoplasm of liver, not specified as primary or secondary documented in this encounter Care Teams Chief Engineer Research Relationship Specialty Start Date End Date Provider, Unknown UNKNOWN PCP - General 01/08/25 documented as of this encounter
--- OUTSIDE RECORDS SUMMARY | 2025-01-17 19:23 | XMS_ITS | Clinical Summary ---
Author Organization [facility] Address [address] [place] [address] Phone Care Team Providers Care Basket Grader Name Role Phone Provider, Unknown Primary Care Provider Unavaila ble Allergies No known active allergies Medications acetaminophen (TYLENOL) 325 MG Tablet Take 650 mg by mouth every 4 hours as needed for Mild or more severe pain. 12/20/19 25 Active cyclobenzaprine (FLEXERIL) 5 MG Tablet Take 5 mg by mouth 3 times daily as needed for Muscle spasms. 12/20/19 25 Active Calcium Carbonate Antacid 200 MG TABLET DISPERSIBLE Take 2 Tablets by mouth 3 times daily as needed for Other (reflux). 12/20/19 25 Active loratadine (Claritin) 10 MG Tablet Take 10 mg by mouth Daily as needed for Allergies. 12/20/19 25 Active dicyclomine (BENTYL) 20 MG Tablet Take 20 mg by mouth 3 times daily as needed for Other (abdominal pain). 12/20/19 25 Active famotidine (PEPCID) 20 MG Tablet Take 20 mg by mouth 2 times daily. 12/20/19 25 Active fluticasone (FLONASE) 50 MCG/ACT Suspension 2 Sprays by Nasal route Daily as needed for Allergies. 12/20/19 25 Active lansoprazole (PREVACID) 30 MG CAPSULE DELAYED RELEASE Take 30 mg by mouth 2 times daily. 12/20/19 25 Active ondansetron (ZOFRAN-ODT) 4 MG TABLET DISPERSIBLE Take 4 mg by mouth every 8 hours as needed for Nausea - 1st line. Active prochlorperazin e (COMPAZINE) 10 MG Tablet Take 10 mg by mouth every 6 hours as needed for Nausea - 2nd line. 12/20/19 Active senna-docusate (Senna Plus) 8.6-50 MG Tablet Take 1 Tablet by mouth nightly. 12/20/19 Active dextrose 70 % SOLN with sodium chloride 4 MEQ/ML (23.4 %) SOLN, Fat Emuls Plant Base(Soy/Oliv) 20 % EMUL 300 mL 1,800 mL by Intravenous route daily. 12/20/19 Active Multiple Vitamin (INFUVITE ADULT IV) 10 mL by Intravenous route daily. Add contents of one Blue top vial and one white top vial to TPN prior to administration. Mix TPN well prior to infusing. 12/20/19 Active Heparin Sod, Pork, Lock Flush (HEPARIN LOCK FLUSH IV) 50 Units by Intravenous route daily. Final flush after TPN. 12/20/19 Active sodium chloride 0.9 % Solution 10 mL by Intravenous route daily. Before TPN administration, after TPN, before Heparin final flush 12/20/19 Active Enoxaparin Sodium 40 MG/0.4ML Prefilled Syringe Kit 40 mg by Subcutaneous route daily. 01/03/20 25 025 Active loperamide (IMODIUM) 2 MG Capsule Take 2 mg by mouth 4 times daily as needed for Diarrhea. 01/04/20 Active Menthol-Zinc Oxide 0.44-20 % Ointment Apply 1 Application 4 times daily as needed for Other (skin irritation). 01/04/20 Active oxyCODONE 10 MG Tablet Take 10 mg by mouth every 4 hours as needed for Moderate or more severe pain. 01/04/20 Active oxyCODONE, immediate release, (OXY-IR) 15 MG Tablet Take 0.5 Tablets by mouth every 4 hours as needed for Moderate or more severe pain. 12/20/19 25 Discontinu ed(Med List Clean Up) sucralfate (CARAFATE) 1 GM Tablet Take 1 g by mouth 3 times daily as needed for Other (GI spasms). 12/20/19 25 Discontinu ed(Med List Clean Up) gabapentin (NEURONTIN) 300 MG Capsule Take 300 mg by mouth 2 times daily. 01/04/20 025 Encounters Date Type Department Care Team Description 01/16/[address] [address] Ree Alvarez, RN Returning call. 01/14/2025 10:00 AM CDT Home Care Visit [address] [address] Rhonda Delgadillo, RN SN - LAB 01/14/2025 Lab Requisition [facility] [address] [place] [address] Debra Cagle MD Malignant neoplasm of liver, not specified as primary or secondary (HCC) 01/07/2025 2:00 PM CDT Home Care Visit [address] [address] Denisa Valencia RN SN - LAB 01/07/2025 Lab Requisition [facility] [address] [place] [address] Debra Cagle MD Malignant neoplasm of liver, not specified as primary or secondary (HCC) 01/04/2025 Home Care Visit [address] [address] Iona Vanessa RN CASE COMMUNICATION 01/04/2025 Plan of Care Documentation [address] [address] 01/03/2025 3:00 PM CDT Home Care Visit [address] [address] Iona Vanessa, RN SN - [place] RESUMPTION OF CARE Discharge Disposition: Discharged to home or Selfcare 01/02/2025 Home Care Visit [address] [address] Iona Vanessa RN CASE COMMUNICATION 12/28/2024 Home Care Visit [address] [address] Iona Vanessa RN SN - [place] TRANSFER W/OUT DC 12/19/2024 2:00 PM CDT Home Care Visit [address] [address] Iona Vanessa RN SN - [place] START OF CARE 12/19/2024 Plan of Care Documentation [address] [address] from Last 3 Months Social History Tobacco Use Types Packs/Day Years Used Date Smoking Tobacco: Never Assessed Comments Unknown Sex and Gender Information Value Date Recorded Sex Assigned at Not on file Legal Sex Female 2:31 PM CDT Gender Identity Not on file Sexual Orientation Not on file Last Filed Vital Signs Vital Sign Reading Time Taken Comments Blood Pressure 134/78 01/14/2025 10:10 AM CDT Pulse 108 01/14/2025 10:10 AM CDT Temperature 36.6 C (97.9 F) 01/14/2025 10:10 AM CDT Respiratory Rate 18 01/14/2025 10:10 AM CDT Oxygen Saturation 99% 01/14/2025 10:10 AM CDT Inhaled Oxygen Concentration - - Weight 53.5 kg (118 lb) 01/07/2025 1:30 PM CDT Height 167.6 cm (5' 6) 01/03/2025 4:00 PM CDT Body Mass Index 19.05 01/03/2025 4:00 PM CDT Plan of Treatment Upcoming Encounters Date Type Department Care Team (Late st Contact Info) Description 01/21/2025 1:00 AM CDT Home Care Visit [address] [address] Iona Vanessa RN [place] 01/28/2025 1:00 AM CDT Home Care Visit [address] [address] Iona Vanessa RN [place] 02/04/2025 1:00 AM CDT Home Care Visit [address] [address] Iona Vanessa RN [place] 02/11/2025 1:00 AM CDT Appointment [facility] [address] [place] [address] Iona Vanessa RN [place] Health Maintenance Due Date Last Done Comments Hepatitis C Virus (HCV) Screening 1960 Mammogram 1960 TdaP Immunization 1960 Pneumococcal Immunization (50+ years) (1 of 2 - PCV) 1979 HPV/Cotest 1990 Cologuard 2005 Colonoscopy 2005 Colorectal Cancer Screening 2005 Immunochemical Fecal Occult Blood 2005 Zoster Immunization (1 of 2) 10/12/2015 08/17/2015 Cervical Cancer Screening (CCS) 04/05/2020 Pap Smear 04/05/2020 04/05/2017 SARS-COV-2 Immunization (8 - Pfizer risk season) 2024 03/03/2024, 03/08/2023, 03/15/2022, Additional history exists Influenza Immunization (#1) 02/04/202503/08, 03/25/2023, 03/13/2022, Additional history exists Respiratory Syncytial Virus (RSV) Immunization (Adult) (1 - 1-dose 75+ series) 2035 Hepatitis B Immunization Aged Out No longer eligible based on patient's age to complete this topic Human Papillomavirus (HPV) Immunization Aged Out No longer eligible based on patient's age to complete this topic Meningococcal Immunization (ACWY) Aged Out No longer eligible based on patient's age to complete this topic Rotavirus Immunization Aged Out No lo nger eligible based on patient's age to complete [...] not specified as primary or secondary (HCC) CBC WITH AUTO DIFFERENTIAL Routine 01/07/2025 2:15 [...] not specified as primary or secondary (HCC) from Last 3 Months Results * (ABNORMAL) CBC WITH AUTO DIFFERENTIAL (01/14/2025 1:05 AM CDT) Only the most recent of2 resultswithin the time period is included. WBC 7.78 4.00 - 12.00 10(3)/mcL 01/14/2025 12:15 PM CDT [facility] RBC 3.69(L) 3.80 - 5.30 10(6)/mcL 01/14/2025 12:15 PM CDT [facility] HEMOGLOBIN (HGB) 10.3(L) 12.0 - 15.8 g/dL 01/14/2025 12:15 PM CDT [facility] HEMATOCRIT (HCT) 32.7(L) 36.0 - 47.0 % 01/14/2025 12:15 PM CDT [facility] MCV 88.6 82.0 - 96.0 fL 01/14/2025 12:15 PM CDT [facility] MCH 27.9 26.0 - 34.0 pg 01/14/2025 12:15 PM CDT [facility] MCHC 31.5 31.0 - 36.0 g/dL 01/14/2025 12:15 PM CDT [facility] PLATELET COUNT 389 140 - 440 10(3)/mcL 01/14/2025 12:15 PM CDT [facility] RDW 17.0(H) 11.8 - 15.5 % 01/14/2025 12:15 PM CDT [facility] MPV 10.2 9.7 - 12.4 fL 01/14/2025 12:15 PM CDT [facility] NEUTROPHILS 68.7 47.0 - 73.0 % 01/14/2025 12:15 PM CDT [facility] LYMPHOCYTES 13.1(L) 18.0 - 42.0 % 01/14/2025 12:15 PM CDT [facility] MONOCYTES 10.7 4.0 - 12.0 % 01/14/2025 12:15 PM CDT [facility] EOSINOPHILS 5.5(H) 0.0 - 5.0 % 01/14/2025 12:15 PM CDT [facility] BASOPHILS 1.2(H) 0.0 - 1.0 % 01/14/2025 12:15 PM CDT [facility] IMMATURE GRANULOCYTE 0.8(H) 0.0 - 0.4 % 01/14/2025 12:15 PM CDT [facility] Comment:Immature Granulocyte s includes Metamyelocytes, Myelocytes, and Promyelocytes. ABSOLUTE NEUTROPHILS 5.35 1.60 - 7.70 10(3)/mcL 01/14/2025 12:15 PM CDT [facility] ABSOLUTE LYMPHOCYTES 1.02(L) 1.30 - 3.20 10(3)/mcL 01/14/2025 12:15 PM CDT [facility] ABSOLUTE MONOCYTES 0.83 0.20 - 1.00 10(3)/mcL 01/14/2025 12:15 PM CDT [facility] ABSOLUTE EOSINOPHIL 0.43(H) 0.00 - 0.40 10(3)/mcL 01/14/2025 12:15 PM CDT [facility] ABSOLUTE BASOPHILS 0.09 0.00 - 0.10 10(3)/mcL 01/14/2025 12:15 PM CDT [facility] ABSOLUTE IMMATURE GRANULOCYTE 0.06(H) 0.00 - 0.03 10 (3) mcL. 01/14/2025 12:15 PM CDT [facility] NRBC PER 100 WBC 0 01/15/20 25 12:15 PM CDT [facility] Blood No Phlebotomy Charged / Unknown 01/14/2025 1:05 AM CDT 01/14/2025 12:12 PM CDT us Debra Cagle MD HEMATOLOGY ORDERABLES Final Result Performing Organization Address City/[facility]/ZIP Co de Phone Number [facility] [place] [address] * PHOSPHORUS (PO4) (01/14/2025 1:05 AM CDT) Only the most recent of2 resultswithin the time period is included. PHOSPHORUS 3.7 2.5 - 4.5 mg/dL 01/14/2025 12:48 PM CDT [facility] Blood No Phlebotomy Charged / Unknown 01/14/2025 1:05 AM CDT 01/14/2025 12:03 PM CDT us Debra Cagle MD CHEMISTRY ORDERABLES Final R esult [facility] [address] [place] [address] * MAGNESIUM (MG) (01/14/2025 1:05 AM CDT) Only the most recent of2 resultswithin the time period is included. MAGNESIUM 2.0 1.6 - 2.6 mg/dL 01/14/2025 12:48 PM CDT [facility] Blood No Phlebotomy Charged / Unknown 01/14/2025 1:05 AM CDT 01/14/2025 12:03 PM CDT us Debra Cagle MD CHEMISTRY ORDERABLES Final R esult [facility] [address] [place] [address] * (ABNORMAL) CMP (COMPREHENSIVE METABOLIC PANEL) (01/14/2025 1:05 AM CDT) Only the most recent of2 resultswithin the time period is included. SODIUM 138 136 - 145 mmol/L 01/14/2025 12:48 PM CDT [facility] POTASSIUM 3.5 3.5 - 5.1 mmol/L 01/14/2025 12:48 PM CDT [facility] CHLORIDE 107 98 - 107 mmol/L 01/14/2025 12:48 PM CDT [facility] CO2, VENOUS 21(L) 22 - 30 mmol/L 01/14/2025 12:48 PM CDT [facility] ANION GAP 13.5 <18.0 mmol/L 01/14/2025 12:48 PM CDT [facility] GLUCOSE 127(H) 70 - 99 mg/dL 01/14/2025 12:48 PM CDT [facility] BUN 14 10 - 20 mg/dL 01/14/2025 12:48 PM CDT [facility] CREATININE, BLOOD 0.40(L) 0.60 - 1.00 mg/dL 01/14/2025 12:48 PM T [facility] BUN/CREATININE RATIO 35(H) 12 - 20 ratio 01/14/2025 12:48 PM CDT [facility] TOTAL PROTEIN 6.6 6.0 - 8.0 g/dL 01/14/2025 12:48 PM T [facility] ALBUMIN 3.4(L) 3.5 - 5.0 g/dL 01/14/2025 12:48 PM T [facility] A/G RATIO 1.1 1.0 - 2.2 01/14/2025 12:48 PM [facility] CALCIUM 8.8 8.7 - 10.5 mg/dL 01/14/2025 12:48 PM T [facility] T BILI 0.4 0.2 - 1.2 mg/dL 01/14/2025 12:48 PM T [facility] SGOT (AST) 96(H) <43 U/L 01/14/2025 12:48 PM [facility] SGPT (ALT) 85(H) <56 U/L 01/14/2025 12:48 PM [facility] ALKALINE PHOSPHATASE 116 40 - 150 U/L 01/14/2025 12:48 PM T [facility] GFR, ESTIMATED >60 >=60 01/14/2025 12:48 PM [facility] Comment: Creatinine Clearance is the preferred criteria for selecting drug dose adjustments in renally impaired patients. The GFR is provided as additional pertinent clinical information. GFR is reported in mL/min/1.73 sq m. Calculation based on the Chronic Kidney Disease Epidemiology Collaboration (CKD- EPI) equation refit without adjustment for race. GFR, EST. >60 >=60 025 12:48 PM T [facility] GFR, EST. NONAFRICAN >60 >=60 01/14/2025 12:48 PM [facility] Blood No Phlebotomy Charged / Unknown 01/14/2025 1:05 AM CDT 01/14/2025 12:03 PM CDT us Debra Cagle MD CHEMISTRY ORDERABLES Final R esult [facility] [place] [address] from Last 3 Months Insurance [facility] Advance Directives * Full Code (Latest Code Status on File) Date Activated Date Inactivated Comments 12/20/2024 10:07 AM Care Teams Basket Grader Relationship Specialty Start Date End Date Provider, Unknown UNKNOWN PCP - General 01/08/25
--- OUTSIDE RECORDS SUMMARY | 2025-01-17 19:24 | XMS_ITS | Encounter Summary ---
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) Debra Cagle MD [address] [facility] [phone] [place] [address] Phone: tel: fax: Kika Lora MD [address] [facility] [address] [place] [address] Phone: tel: fax: Referral ID Status Reason Start Date Expiration Date Visits Requested Visits Authorized [id number] Pending Review Specialty Services Required 11/27/2024 12/27/2025 1 1 Question Answer Please select the performing region: [facility] (All Locations) [[id number]] Please select the performing department: [facility] ONC ACB5 [[id number]] Is this referral for Breast Health Multi-Disciplinary Clinic? No Does the patient have a diagnosis of a Head and Neck cancer? No To Provider NOTE: we will do our best to honor your provider preference, but scheduling the patient in a timely manner in our clinic will take precedence. KIKA LORA [[id number]] # of visits: 1 Comments Metastatic neuroendocrine tumor Encounter Details Date Type Department Care Team (Late st Contact Info) Description 11/21/2024 Results Follow-Up [facility] Surgeon [address] [place] [address] Debra Cagle MD [address] [facility] [phone] [place] [address] Surgical pathology Social History Tobacco Use Types Packs/Day Years Used Date Smoking Tobacco: Never AUDIT-C Answer Date Recorded Q1: How often do you have a drink containing alcohol? Never 11/16/2024 Q2: How many drinks containi ng alcohol do you have on a typical day when you are drinking? Patient does not drink Q3: How often do you have si x or more drinks on one occasion? Never 11/16/2024 Personal Safety Answer Date Recorded Have you ever been in or are you currently in a harmful physical or emotional relationship or is someone making you feel afraid or unsafe? 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 difficile suspected 12/30/2024 12/30/202412/30 10:43 AM CDT documented as of this encounter Care Teams Senior Ux Developer Relationship Specialty Start Date End Date David Marmolejo DO PCP - General Internal Medicine 01/15/21 Debra Cagle MD [address] [phone] [place] [address] PCP - Home Infusion Attending General Surgery 12/19/24 Melanie Pandya [facility] Pharmacist Pharmacy 12/18/24 documented as of this encounter
--- OUTSIDE RECORDS SUMMARY | 2025-01-17 19:24 | XMS_ITS | Encounter Summary ---
Author Organization [facility] Healthcare Address [address] [place] [address] Care Team Providers Care Environmental Science Professor Name Role Phone David Marmolejo DO Primary Care Provider [phone] Melanie Pandya [facility] Unavailable Unavailable Debra Cagle MD Unavailable [phone] Encounter Details Date Type Department Care Team (Late st Contact Info) Description 12/18/2024 Results Follow-[facility] [address] [facility] 3rd Floor [address] [place] [address] Ana Herron MD [address] [facility] [address] [place] [address] Pap and High Risk HPV and Genotyping (Cytology Component) Social History Tobacco Use Types Packs/Day Years Used Date Smoking Tobacco: Former Cigarettes Q uit: 1991 Passive Smoke Exposure: Past AUDIT-C Answer Date Recorded Q1: How often do you have a drink containing alc ohol? 2-4 times a month 12/21/2024 Q2: How many drinks containi ng alcohol do you have on a typical day when you are drinking? 1 or 2 12/21/2024 Q3: How often do you have si x or more drinks on one occasion? Never 12/21/2024 Hunger Vital Sign Answer Date Recorded Within the past 12 months, y ou worried that your food would run out before you got the money to buy more. Never true 12/07/19 25 Within the past 12 months, t he food you bought just didn't last and you didn't have money to get more. Never true 12/06/2024 Personal Safety Answer Date Recorded Have you ever been in or are you currently in a harmful physical or emotional relationship or is someone making you feel afraid or unsafe? 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 2-4 times a month 12/21/2024 1:45 PM Madelin Escudero RN Q2: How many drinks containing alcohol do you have on a typical day when you are drinking? 1 or 2 12/21/2024 1:45 PM PENNIET Madelin Whiting RN Q3: How often do you have six or more drinks on one occasion? Never 12/21/2024 1:45 PM PENNIET Madelin Whiting RN documented as of this encounter Plan of Treatment Not on file documented as of this encounter Visit Diagnoses Not on filedocumented in this encounter Additional Health Concerns Infection Onset Date Last Indicated Resolved Time C. difficile suspected 12/30/2024 12/30/202412/30 10:43 AM CDT documented as of this encounter Care Teams Environmental Science Professor Relationship Specialty Start Date End Date David Marmolejo DO PCP - General Internal Medicine 01/15/21 Debra Cagle MD [address] [phone] [place] [address] PCP - Home Infusion Attending General Surgery 12/19/24 Melanie Pandya, [facility] Pharmacist Pharmacy 12/18/24 documented as of this encounter
--- OUTSIDE RECORDS SUMMARY | 2025-01-17 19:24 | XMS_ITS | Clinical Summary ---
Author Organization [facility] [email or web address] Address [address] [place] [address] Care Team Providers Care Wire Wheeler Name Role Phone Salvador Ramirez MD Primary Care Provider [phone] Source Comments [facility],non-owned Affiliates and Associated Physician Practices is amultiple site organization consisting of ambulatory clinics and hospital sitesin [place], [place], [place] and [place]. This disclosure is being madepursuant to the Care Everywhere program and may not contain all information available regarding this patient. Last updated 18.[facility] [email or web address] Allergies No known active allergies Immunizations Immunization Administration Dates Next Due INFLUENZA VACCINE, QUADR. 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
--- OUTSIDE RECORDS SUMMARY | 2025-01-17 19:24 | XMS_ITS | Continuity of Care Document ---
Author Organization [facility] Address [address] [place] [address] [facility] [address] [place] [address] Phone Care Team Providers Care Water Tender Name Role Phone BeenaJosé Miguel eastman Unavailable Unavailable Procedures Procedure Date Office/outpatient Visit, Est Advance Directives Directive Yes / No Effective Date File Name No Information Encounters Encounter Description Practice Location Reason(s) For Visit Diagnoses Date Provider Providers Copied on Encounter Office/outpat ient Visit, Est [facility], [address], [place], [place], [id number], [place] tel:[phone] [facility] No Information [phone] Kiko José Miguel. [address], [place], [address], [place]. tel:[phone] Family History Family Member Type Diagnosis Age At Onset No Information Payers Payer name Insurance type Covered alliance party ID Authoriza tion(s) No Information Social History Type Description Quantity Date Captured Comments Sex Female Smoking Status No Information Chief Complaint And Reason For Visit No Information Reason For Referral Reason For Referral No Information History Of Present Illness Encounter Date Complaint History Of Prese nt Illness No Information Functional Status Date Functional Assessmen t No Information Instructions Date Instruction Additional Infor mation No Information Assessments Type Assessment Date No Information Patient Care Teams Name Effective Dates (start - stop) Status Members No Information
--- OUTSIDE RECORDS SUMMARY | 2025-01-17 19:24 | XMS_ITS ---
Author Organization [facility] Address [address] [place] [address] Care Team Providers Care Effervescent Salts Compounder Name Role Phone David Marmolejo DO Primary Care Provider [phone] Melanie Pandya [facility] Unavailable Unavailable Debra Cagle MD Unavailable [phone] TPN 1800mL daily Status:Enrolled (Active) Start date:12/13/2024 Enrollment date:12/13/2024 Linked medications:water for injection,sterile,sodium chloride,potassium chloride,potassium phos,c-gqcjc-j-basic,calcium gluconate,magnesium sulfate,dextrose 70 % in water,parenteral amino acid 10% no.6,fat emul/soy/mct /oliv/fish oil,zinc/copper/manganese/selenium (Active) Related program episode:Home Infusion (Active) Case Team Name Relationship Phone Melanie Pandya [facility](Responsible Staff) Pharmacis t Continued Care and Services Coordination This section includes services coordinated for TPN 1800mL daily. Home Medical Care Name Services Phone [facility]fusion an d Injection [phone]
--- OUTSIDE RECORDS SUMMARY | 2025-01-17 19:24 | XMS_ITS ---
Author Organization [facility] Address [address] [place] [address] Care Team Providers Care Youth Probation Officer Name Role Phone David Marmolejo DO Primary Care Provider [phone] Melanie Pandya [facility] Unavailable Unavailable Debra Cagle MD Unavailable [phone] Home Infusion Status:Enrolled (Active) Start date:12/13/2024 Enrollment date:12/13/2024 Related service episodes:TPN 1800mL daily (Active) Continued Care and Services Coordination This section includes services coordinated for Home Infusion. Home Medical Care Name Services Phone [facility] Home [facility]fusion an d Injection [phone]
[2025-01-17] MEDS: LACTATED RINGERS 1,000 ML 999 ML IV CONT ×2 (19:48→21:04)
[2025-01-17] MEDS: ADENOSINE IV SOLN 6 MG/2 ML VIAL IV PUSH (19:48)
[2025-01-17] MEDS: ASPIRIN 81 MG CHEWABLE TABLET 324 MG PO (19:50)
[2025-01-17 20:00] LABS: Hematocrit 40.2 % (37.0-47.0); Hemoglobin 12.8 g/dL (12.0-15.0); Immature Granulocyte Percent A 0.6 % (0-0.5); Lymphocytes Absolute Auto 2.25 K/mm3 (0.9-3.2); Mean Corpuscular HGB Conc 31.8 g/dl (32-36); Mean Corpuscular Hemoglobin 27.4 pg (26-34); Mean Corpuscular Volume 86.1 fl (80-100); Nucleated Red Blood Cells Absolute Auto 0.000 K/mm3 (0.0-0.012); Nucleated Red Blood Cells Perc 0.0 % (0.0-0.2); Platelet Count Result 468 k/mm3 (150-375); Red Blood Count 4.67 M/mm3 (4.2-5.4); White Blood Count 14.2 K/mm3 (4.5-10.0)
[2025-01-17 20:09] LABS: Partial Thromboplastin Time 27.1 Seconds (22.3-36.8)
[2025-01-17 20:10] LABS: INR 1.0; Prothrombin Time 13.1 Seconds (11.1-14.7)
[2025-01-17 20:11] LABS: Alanine Aminotransferase 123 U/L (6-35); Albumin Level 4.1 g/dL (3.5-5.1); Alkaline Phosphatase 152 U/L (38-126); Anion Gap 14 mmol/L (4-12); Aspartate Amino Transferase 103 U/L (14-36); Bilirubin,Total 0.6 mg/dL (0.2-1.3); Blood Urea Nitrogen 13 mg/dL (7-17); Calcium 10.2 mg/dL (8.4-10.2); Carbon Dioxide 18 mmol/L (22-30); Chloride 105 mmol/L (98-107); Estimated CRCL calculation 85 ml/min; Estimated Glomerular Filt Rate > 60; Glucose 135 mg/dL (65-110); Lipase 363 U/L (23-300); Potassium 3.3 mmol/L (3.4-5.0); Sodium 137 mmol/L (137-145); Total Protein 7.8 g/dL (6.3-8.2)
--- NOTE | 2025-01-17 20:20 | ED_ITS ---
HPI - Arrhythmia/Palpitations General Chief Complaint: Arrhythmia/Palpitations Stated Complaint: High Heart Rate 90's at home Time Seen by Provider: 01/17/25 19:28 History of Present Illness HPI narrative: 64-year-old female with recently diagnosed neuroendocrine tumor several months ago with metastasis to her liver pelvic organs. Patient presents to the emergency department with acute elevated heart rate of 190-200. She has a history of elevated heart rates in the past but she has had unremarkable cardiac workup previously, unremarkable Holter monitor recently in July. she states she feels like her heart rate is elevated but denies any other symptoms such as chest pain or pressure. No nausea, vomiting, neck pain, vision changes, back pain, abdominal discomfort. She states she knows exactly when this started and was approximately at 4:00 p.m. when she felt like her heart rate was elevated and confirmed at home. Regarding her cancer course she has yet to establish with an oncologist but did have a surgical resection of the neuroendocrine tumor proximal 100 cm of bowel resection in October at [facility]. She had biopsy done outpatient and currently has a PICC line to start initiation of therapies but currently only therapy she is getting his TPN as she has had decreased nutrition intake for quite some time. She states she has not been able to have her oncology appointment yet and is been pushed off until late February. Denies any history of DVT or PE, no leg swelling or calf cramping. She states she has chronic hypokalemia. Related Data Home Medications ?Medication ?Instructions ?Recorded ?Confirmed ?Last Taken ?Type enoxaparin 40 mg/0.4 mL 40 mg subcut DAILY 01/18/25 01/18/25 01/17/25 History subcutaneous syringe ondansetron 4 mg disintegrating 4 mg PO Q6-8H PRN nausea and 01/18/25 01/18/25 Unknown History tablet vomiting sumatriptan succinate 25 mg tablet See Rx Instructions PO .COMPLEX 01/18/25 01/18/25 Unknown History (Imitrex) PRN migraine headache Allergies Allergy/AdvReac Type Severity Reaction Status Date / Time No Known Allergies Allergy Unknown Verified 01/18/25 00:25 Review of Systems 2 Review of Systems: As reviewed above in HPI [facility] Past Medical History Medical History Complaint of paresthesia Screening for breast cancer Chest pressure Hospital discharge follow-up Abnormal thyroid function test Generalized headaches Alopecia LUQ pain Diarrhea Chicken pox Elevated liver enzymes Mumps Recurrent UTI Vaginal disorder Surgical History Surgical History History of cholecystectomy History of breast augmentation Family History Family History Father Family history of cardiovascular disease Sibling Carcinoma of colon Hypertension Patient's sister is in good health Patient's brother is in good health Mother Family history of throat cancer Family history of malignant neoplasm Social History Social History Smoking packs per day: 1 Smoking cigarettes per day: 20.0 Years smoked: 15 Smoking pack-years: 15.00 Smoking status: Former smoker Tobacco type: cigarettes Smoking end date: 06/06/90 Alcohol intake: never Substance use: never Substance use type: does not use Lack of Transportation: No Lack of Food: Never True Current Housing: I Have Housing Concerned About Future Housing: No Difficulty Paying Gas/Electric Bills: No Difficulty Paying for Meds: No Currently Unemployed: No Education: High School Diploma/GED Difficulty w/ Childcare or Family Care: No Living arrangements: with family Gender identity (if verbalized by the patient): Female Spiritual care concerns: No Exam 2 Narrative: GENERAL: [Well-appearing, well-nourished, and in no acute distress.] HEAD: [Normocephalic, atraumatic.] EYES: [PERRLA and EOMI.] ENT: Nares clear, no rhinorrhea or epistaxis. Mucous membranes moist. NECK: Supple. CHEST: [Clear to auscultation. No respiratory distress.] HEART: tachycardic rate, regular rhythm. No murmur heard. [Normal peripheral pulses.] ABDOMEN: [Soft, nondistended], [nontender], [No rigidity or guarding] EXTREMITIES: Normal range of motion. [No edema.] SKIN: Warm, dry, no rash. NEURO: [No focal deficits]. Alert and oriented [x3.] PSYCH: [Normal mood and affect.] Course Vital Signs Vital signs: Vital Signs Pulse Rate 192 H 01/17/25 19:29 Respiratory Rate 16 01/17/25 19:29 Pulse Oximetry 100 01/17/25 19:29 Oxygen Delivery Room Air 01/17/25 19:29 Temperature 36.7 C 01/18/25 05:29 Pulse Rate 86 01/18/25 06:00 Respiratory Rate 16 01/18/25 05:29 Blood Pressure 131/82 01/18/25 05:29 Pulse Oximetry 100 01/18/25 05:29 Oxygen Delivery Room Air 01/18/25 04:00 MDM - Arrhythmia/Palpitations MDM Narrative Medical decision making narrative: 64-year-old female with recently diagnosed neuroendocrine tumor several months ago with metastasis to her liver pelvic organs. Patient presents to the emergency department with acute elevated heart rate of 190-200. She has a history of elevated heart rates in the past but she has had unremarkable cardiac workup previously, unremarkable Holter monitor recently in July. she states she feels like her heart rate is elevated but denies any other symptoms such as chest pain or pressure. No nausea, vomiting, neck pain, vision changes, back pain, abdominal discomfort. She states she knows exactly when this started and was approximately at 4:00 p.m. when she felt like her heart rate was elevated and confirmed at home. Regarding her cancer course she has yet to establish with an oncologist but did have a surgical resection of the neuroendocrine tumor proximal 100 cm of bowel resection in October at [facility]. She had biopsy done outpatient and currently has a PICC line to start initiation of therapies but currently only therapy she is getting his TPN as she has had decreased nutrition intake for quite some time. She states she has not been able to have her oncology appointment yet and is been pushed off until late February. Denies any history of DVT or PE, no leg swelling or calf cramping. She states she has chronic hypokalemia. EKG obtained immediately in triage showing SVT with some strain pattern with ST segment changes. She was placed in the room 8 for resuscitation and cardiac interventions. IV was established and she was given an additional dose of 6 mg of IV adenosine while hooked up to cardiac pads and sole monitor. She had conversion to sinus tachycardia successfully without any rebound. She had normal blood pressures pre and post intervention. 1 L fluid bolus initiating this time. Laboratory studies investigations ordered such as CT PE to rule out pulmonary embolism is a potential trigger, electrolyte imbalances, fluid dehydration or kidney injury could also cause this. Her neuroendocrine tumor with metastasis is however the most likely source with its secretion of hormones. patient remains hemodynamically stable, feels improved and has no symptoms after cardioversion with adenosine. Patient's initial troponin is negative, remains hemodynamically stable. Discussed with the hospitalist for admission with Dr. Hook. Patient is still persistently tachycardic in the 130s range, but no longer in SVT, is ST on ekg and monitor. She was given oral metoprolol extended release to help treat this. CTA shows no evidence of arterial embolism, no acute process in the chest. Patient comfortable with the plan and patient was admitted to the IMU for further evaluations and treatment on inpatient basis. Medical Records Attestation: I reviewed the patient's medical records. Lab Data Attestation: I reviewed the patient's lab results. 01/17/25 19:51 01/17/25 19:51 Labs: Lab Results 01/17/25 Range/Units 19:51 WBC 14.2 H (4.5-10.0) K/mm3 RBC 4.67 (4.2-5.4) M/mm3 Hgb 12.8 D (12.0-15.0) g/dL Hct 40.2 (37.0-47.0) % MCV 86.1 (80-100) fl MCH 27.4 (26-34) pg MCHC 31.8 L (32-36) g/dl RDW 16.4 H (11.5-14.5) % Plt Count 468 H (150-375) k/mm3 MPV 10.6 H (7.4-10.4) fl Immature Gran % (Auto) 0.6 H (0-0.5) % Neut % (Auto) 68.1 (45.5-73.1) % Lymph % (Auto) 15.8 L (18.3-44.2) % [place] % (Auto) 10.5 H (2.6-8.5) % Eos % (Auto) 4.1 (0-4.4) % Baso % (Auto) 0.9 (0.2-1.2) % Lymph # (Auto) 2.25 (0.9-3.2) K/mm3 [place] # (Auto) 1.5 H (0.1-0.6) K/mm3 Eos # (Auto) 0.6 H (0-0.3) K/mm3 Baso # (Auto) 0.1 (0.0-0.1) K/mm3 Abs Immat Gran (auto) 0.08 H (0.00-0.031) K/mm3 Absolute Neuts (auto) 9.7 H (1.3-6.7) K/mm3 Absolute Nucleated RBC 0.000 (0.0-0.012) K/mm3 Nucleated RBC % 0.0 (0.0-0.2) % PT 13.1 (11.1-14.7) Seconds INR 1.0 APTT 27.1 (22.3-36.8) Seconds Sodium 137 (137-145) mmol/L Potassium 3.3 L (3.4-5.0) mmol/L Chloride 105 (98-107) mmol/L Carbon Dioxide 18 L (22-30) mmol/L Anion Gap 14 H (4-12) mmol/L BUN 13 (7-17) mg/dL Creatinine 0.43 L (0.7-1.0) mg/dL Estim Creat Clear Calc 85 ml/min Estimated GFR > 60 (59 - ) Glucose 135 H (65-110) mg/dL Calcium 10.2 (8.4-10.2) mg/dL Total Bilirubin 0.6 (0.2-1.3) mg/dL AST 103 H (14-36) U/L ALT 123 H (6-35) U/L Alkaline Phosphatase 152 H (38-126) U/L Troponin I < 0.012 (0.000-0.034) ng/mL Total Protein 7.8 (6.3-8.2) g/dL Albumin 4.1 (3.5-5.1) g/dL Lipase 363 H (23-300) U/L Imaging Data Attestation: I personally reviewed and interpreted this imaging study as follows: My impression: Impressions Chest X-Ray 01/17/25 20:11 IMPRESSION: No acute cardiopulmonary process. Chest CTA 01/17/25 20:37 IMPRESSION: No CT evidence of acute pulmonary embolus. No acute process detected in the chest. Stable mild left pelviectasis/caliectasis. Critical Care Time Critical Care Time Critical Care Time: Yes Total Critical Care Time: 41 Discharge Plan Discharge Clinical Impression: SVT (supraventricular tachycardia), History of malignant neuroendocrine tumor Patient Disposition: Still a Patient Condition: Stable
[2025-01-17 20:22] LABS: Troponin I < 0.012 ng/mL (0.000-0.034)
--- OUTSIDE RECORDS SUMMARY | 2025-01-17 20:32 | XMS_ITS | Encounter Summary ---
Author Organization [facility] Address [address] [place] [address] Phone Care Team Providers Care Distillation Operator Helper Name Role Phone Provider, Unknown Primary Care Provider Unavaila ble Encounter Details Date Type Department Care Team (Late st Contact Info) Description 01/14/2025 Lab Requisition [facility] [address] [place] [address] Debra Cagle MD [address] [place] [address] Malignant neoplasm of liver, not specified as [...] 01/21/2025 1:00 AM CDT [facility] [address] [place] [address] Iona Vanessa RN [place] 01/28/2025 1:00 AM CDT [facility] [address] [place] [address] Iona Vanessa RN [place] 02/04/2025 1:00 AM CDT [facility] [address] [place] [address] Iona Vanessa RN [place] 02/11/2025 1:00 AM CDT Appointment [facility] [address] [place] [address] Iona Vanessa RN [place] documented as of this encounter Procedures Procedure [...] 12.00 10(3)/mcL 01/14/2025 12:15 PM CDT [facility] RBC 3.69(L) 3.80 - 5.30 10(6)/mcL 01/14/2025 12:15 PM CDT [facility] HEMOGLOBIN (HGB) 10.3(L) 12.0 - 15.8 g/dL 01/14/2025 12:15 PM CDT [facility] HEMATOCRIT (HCT) 32.7(L) 36.0 - 47.0 % 01/14/2025 12:15 PM CDT [facility] MCV 88.6 82.0 - 96.0 fL 01/14/2025 12:15 PM CDT [facility] MCH 27.9 26.0 - 34.0 pg 01/14/2025 12:15 PM CDT [facility] MCHC 31.5 31.0 - 36.0 g/dL 01/14/2025 12:15 PM CDT [facility] PLATELET COUNT 389 140 - 440 10(3)/mcL 01/14/2025 12:15 PM CDT [facility] RDW 17.0(H) 11.8 - 15.5 % 01/14/2025 12:15 PM CDT [facility] MPV 10.2 9.7 - 12.4 fL 01/14/2025 12:15 PM CDT [facility] NEUTROPHILS 68.7 47.0 - 73.0 % 01/14/2025 12:15 PM CDT [facility] LYMPHOCYTES 13.1(L) 18.0 - 42.0 % 01/14/2025 12:15 PM CDT [facility] MONOCYTES 10.7 4.0 - 12.0 % 01/14/2025 12:15 PM CDT [facility] EOSINOPHILS 5.5(H) 0.0 - 5.0 % 01/14/2025 12:15 PM CDT [facility] BASOPHILS 1.2(H) 0.0 - 1.0 % 01/14/2025 12:15 PM CDT [facility] IMMATURE GRANULOCYTE 0.8(H) 0.0 - 0.4 % 01/14/2025 12:15 PM CDT [facility] Comment:Immature Granulocyte s includes Metamyelocytes, Myelocytes, and Promyelocytes. ABSOLUTE NEUTROPHILS 5.35 1.60 - 7.70 10(3)/mcL 01/14/2025 12:15 PM CDT [facility] ABSOLUTE LYMPHOCYTES 1.02(L) 1.30 - 3.20 10(3)/mcL 01/14/2025 12:15 PM CDT [facility] ABSOLUTE MONOCYTES 0.83 0.20 - 1.00 10(3)/mcL 01/14/2025 12:15 PM CDT [facility] ABSOLUTE EOSINOPHIL 0.43(H) 0.00 - 0.40 10(3)/mcL 01/14/2025 12:15 PM CDT [facility] ABSOLUTE BASOPHILS 0.09 0.00 - 0.10 10(3)/mcL 01/14/2025 12:15 PM CDT [facility] ABSOLUTE IMMATURE GRANULOCYTE 0.06(H) 0.00 - 0.03 10 (3) mcL. 01/14/2025 12:15 PM CDT [facility] NRBC PER 100 WBC 0 01/15/20 12:15 PM CDT [facility] Blood No Phlebotomy Charged / Unknown 01/14/2025 1:05 AM CDT 01/14/2025 12:12 PM CDT us Debra Cagle MD HEMATOLOGY ORDERABLES Final Result Performing Organization Address City/[facility]/ZIP Co de Phone Number [facility] [address] [place] [address] * MAGNESIUM (MG) (01/14/2025 1:05 AM CDT) [facility] MAGNESIUM 2.0 1.6 - 2.6 mg/dL 01/14/2025 12:48 PM CDT [facility] Blood No Phlebotomy Charged / Unknown 01/14/2025 1:05 AM CDT 01/14/2025 12:03 PM CDT Debra Cagle MD CHEMISTRY ORDERABLES Final R esult Performing Organization Address City/[facility]/ZIP Co de Phone Number [facility] [place] [address] * PHOSPHORUS (PO4) (01/14/2025 1:05 AM CDT) PHOSPHORUS 3.7 2.5 - 4.5 mg/dL 01/14/2025 12:48 PM CDT [facility] Blood No Phlebotomy Charged / Unknown 01/14/2025 1:05 AM CDT 01/14/2025 12:03 PM CDT us Debra Cagle MD CHEMISTRY ORDERABLES Final R esult [facility] [place] [address] * (ABNORMAL) CMP (COMPREHENSIVE METABOLIC PANEL) (01/14/2025 1:05 AM CDT) SODIUM 138 136 - 145 mmol/L 01/14/2025 12:48 PM CDT [facility] POTASSIUM 3.5 3.5 - 5.1 mmol/L 01/14/2025 12:48 PM CDT [facility] CHLORIDE 107 98 - 107 mmol/L 01/14/2025 12:48 PM CDT [facility] CO2, VENOUS 21(L) 22 - 30 mmol/L 01/14/2025 12:48 PM CDT [facility] ANION GAP 13.5 <18.0 mmol/L 01/14/2025 12:48 PM CDT [facility] GLUCOSE 127(H) 70 - 99 mg/dL 01/14/2025 12:48 PM CDT [facility] BUN 14 10 - 20 mg/dL 01/14/2025 12:48 PM CDT [facility] CREATININE, BLOOD 0.40(L) 0.60 - 1.00 mg/dL 01/14/2025 12:48 PM CDT [facility] BUN/CREATININE RATIO 35(H) 12 - 20 ratio 01/14/2025 12:48 PM CDT [facility] TOTAL PROTEIN 6.6 6.0 - 8.0 g/dL 01/14/2025 12:48 PM CDT [facility] ALBUMIN 3.4(L) 3.5 - 5.0 g/dL 01/14/2025 12:48 PM CDT [facility] A/G RATIO 1.1 1.0 - 2.2 01/14/2025 12:48 PM CDT [facility] CALCIUM 8.8 8.7 - 10.5 mg/dL 01/14/2025 12:48 PM CDT [facility] T BILI 0.4 0.2 - 1.2 mg/dL 01/14/2025 12:48 PM CDT [facility] SGOT (AST) 96(H) <43 U/L 01/14/2025 12:48 PM CDT [facility] SGPT (ALT) 85(H) <56 U/L 01/14/2025 12:48 PM CDT [facility] ALKALINE PHOSPHATASE 116 40 - 150 U/L 01/14/2025 12:48 PM CDT [facility] GFR, ESTIMATED >60 >=60 01/14/2025 12:48 PM CDT [facility] Comment: Creatinine Clearance is the preferred criteria for selecting drug dose adjustments in renally impaired patients. The GFR is provided as additional pertinent clinical information. GFR is reported in mL/min/1.73 sq m. Calculation based on the Chronic Kidney Disease Epidemiology Collaboration (CKD- EPI) equation refit without adjustment for race. GFR, EST. >60 >=60 025 12:48 PM CDT [facility] GFR, EST. NONAFRICAN >60 >=60 01/14/2025 12:48 PM CDT [facility] Blood No Phlebotomy Charged / Unknown 01/14/2025 1:05 AM CDT 01/14/2025 12:03 PM CDT us Debra Cagle MD CHEMISTRY ORDERABLES Final R esult [facility] [place] [address] documented in this encounter Visit Diagnoses Diagnosis Malignant neoplasm of liver, not specified as primary or secondary (HCC) Malignant neoplasm of liver, not specified as primary or secondary documented in this encounter Care Teams Distillation Operator Helper Relationship Specialty Start Date End Date Provider, Unknown UNKNOWN PCP - General 01/08/25 documented as of this encounter
--- OUTSIDE RECORDS SUMMARY | 2025-01-17 20:32 | XMS_ITS | Encounter Summary ---
Author Organization [facility] Address [address] [facility] [address] [place] [address] Phone Care Team Providers Care Appliance Installer Name Role Phone David Marmolejo DO Primary Care Provider [phone] Melanie Pandya [facility] Unavailable Unavailable Debra Cagle MD Unavailable [phone] Reason for Visit * Reason Onset Date Comments Spoke With Home Health Provider 01/16/2025 Encounter Details Date Type Department Care Team (Late st Contact Info) Description 01/16/2025 Telephone [facility] Surgery [address] [place] [address] Debra Cagle MD [address] [place] [id number] [place] [address] Spoke With Home Health Provider Social History Tobacco Use Types Packs/Day Years Used Date Smoking Tobacco: Former Cigarettes 0.8 15 1 977 - 1991 Passive Smoke Exposure: Past [facility] Utilities Answer Date Recorded In the past 12 months has [employer], gas, oil, or water [employer] threatened to shut off services in your [...] often do you attend chur ch or taoist services? Never 12/28/2024 Do you belong to any clubs o r organizations such as uatsdin groups, unions, fraternal or athletic groups, or [...] any time in the past 12 m [facility], were you homeless or living in a nursing home (including now)? No 12/28/2024 Personal Safety Answer Date Recorded Have you ever been in or are you currently in a harmful physical or emotional relationship or is someone making you feel afraid or unsafe? 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 No Reason for call?: Yue Viramontes from [facility] Home care services is calling to check the status of patient's home care [place] plan of care faxed on 01/09/2025 and 01/15/2025 .please call back Who is the caller: Yue Viramontes What is the best number for them to contact for a call back: [phone] Last office visit: Visit date not found Date of Surgery: 12/25/2024 documented in this encounter Plan of Treatment Not on file documented as of this encounter Visit Diagnoses Not on filedocumented in this encounter Care Teams Appliance Installer Relationship Specialty Start Date End Date David Marmolejo DO PCP - General Internal Medicine 01/15/21 Debra Cagle MD [id number] [place] [address] PCP - Home Infusion Attending General Surgery 12/19/24 Melanie Pandya, [facility] Pharmacist Pharmacy 12/18/24 documented as of this encounter
--- OUTSIDE RECORDS SUMMARY | 2025-01-17 20:32 | XMS_ITS | Encounter Summary ---
Author Organization [facility] [employer] [facility] Address [address] [place] [address] Phone Care Team Providers Care Dovetail Machine Operator Name Role Phone David Marmolejo DO Primary Care Provider [phone] Melanie Pandya [facility] Unavailable Unavailable Debra Cagle MD Unavailable [phone] Encounter Details Date Type Department Care Team (Late st Contact Info) Description 08/16/2020 Orders Only [facility] Scanning, Provider Social History Tobacco Use Types Packs/Day Years Used Date Smoking Tobacco: Never Assessed Comments Unknown Sex and Gender Information Value Date Recorded Sex Assigned at Not on file 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
--- OUTSIDE RECORDS SUMMARY | 2025-01-17 20:32 | XMS_ITS | Continuity of Care Document ---
Author Organization [facility] Address [address] [place] [address] [facility] [address] [place] [address] Phone Care Team Providers Care Performance Reporter Name Role Phone BeenaJosé Miguel eastman Unavailable Unavailable Procedures Procedure Date Office/outpatient Visit, Est Advance Directives Directive Yes / No Effective Date File Name No Information Encounters Encounter Description Practice Location Reason(s) For Visit Diagnoses Date Provider Providers Copied on Encounter Office/outpat ient Visit, Est [facility], [address] [place], [place], [id number], [place] tel:[phone] SEC [facility] No Information [phone] Kiko José Miguel. [address] [facility] [address], [place], [address], [place]. tel:[phone] Family History Family Member Type Diagnosis Age At Onset No Information Payers Payer name Insurance type Covered constitution party ID Authoriza tion(s) No Information Social [...]
--- OUTSIDE RECORDS SUMMARY | 2025-01-17 20:32 | XMS_ITS | Encounter Summary ---
Author Organization [facility] Address [address] [facility] [place] [address] Phone Care Team Providers Care Underwriting Intern Name Role Phone Provider, Unknown Primary Care Provider Unavaila ble Encounter Details Date Type Department Care Team (Late st Contact Info) Description 01/07/2025 Lab Requisition [facility] Services 1 [place] [address] Debra Cagle MD 1 [place] [address] Malignant neoplasm of liver, not specified as [...] 01/21/2025 1:00 AM CDT [facility] [address] [place] [address] Iona Vanessa RN [place] 01/28/2025 1:00 AM CDT [facility] [address] [place] [address] Iona Vanessa RN [place] 02/04/2025 1:00 AM CDT [facility] [address] [place] [address] Iona Vanessa RN [place] 02/11/2025 1:00 AM CDT Appointment [facility] [address] [place] [address] Iona Vanessa RN [place] documented as of this encounter Procedures Procedure [...] 12.00 10(3)/mcL 01/07/2025 3:08 PM CDT [facility] RBC 3.56(L) 3.80 - 5.30 10(6)/mcL 01/07/2025 3:08 PM CDT [facility] HEMOGLOBIN (HGB) 10.0(L) 12.0 - 15.8 g/dL 01/07/2025 3:08 PM CDT [facility] HEMATOCRIT (HCT) 30.9(L) 36.0 - 47.0 % 01/07/2025 3:08 PM CDT [facility] MCV 86.8 82.0 - 96.0 fL 01/07/2025 3:08 PM CDT [facility] MCH 28.1 26.0 - 34.0 pg 01/07/2025 3:08 PM CDT [facility] MCHC 32.4 31.0 - 36.0 g/dL 01/07/2025 3:08 PM CDT [facility] PLATELET COUNT 610(H) 140 - 440 10(3)/mcL 01/07/2025 3:08 PM CDT [facility] RDW 17.3(H) 11.8 - 15.5 % 01/07/2025 3:08 PM CDT [facility] MPV 9.7 9.7 - 12.4 fL 01/07/2025 3:08 PM CDT [facility] NEUTROPHILS 73.6(H) 47.0 - 73.0 % 01/07/2025 3:08 PM CDT [facility] LYMPHOCYTES 12.4(L) 18.0 - 42.0 % 01/07/2025 3:08 PM CDT [facility] MONOCYTES 8.7 4.0 - 12.0 % 01/07/2025 3:08 PM CDT [facility] EOSINOPHILS 3.5 0.0 - 5.0 % 01/07/2025 3:08 PM CDT [facility] BASOPHILS 1.1(H) 0.0 - 1.0 % 01/07/2025 3:08 PM CDT [facility] IMMATURE GRANULOCYTE 0.7(H) 0.0 - 0.4 % 01/07/2025 3:08 PM CDT [facility] Comment:Immature Granulocyte s includes Metamyelocytes, Myelocytes, and Promyelocytes. ABSOLUTE NEUTROPHILS 7.24 1.60 - 7.70 10(3)/mcL 01/07/2025 3:08 PM CDT [facility] ABSOLUTE LYMPHOCYTES 1.22(L) 1.30 - 3.20 10(3)/mcL 01/07/2025 3:08 PM CDT [facility] ABSOLUTE MONOCYTES 0.86 0.20 - 1.00 10(3)/mcL 01/07/2025 3:08 PM CDT [facility] ABSOLUTE EOSINOPHIL 0.34 0.00 - 0.40 10(3)/mcL 01/07/2025 3:08 PM CDT [facility] ABSOLUTE BASOPHILS 0.11(H) 0.00 - 0.10 10(3)/mcL 01/07/2025 3:08 PM CDT [facility] ABSOLUTE IMMATURE GRANULOCYTE 0.07(H) 0.00 - 0.03 10 (3) mcL. 01/07/2025 3:08 PM CDT [facility] NRBC PER 100 WBC 0 01/08/20 3:08 PM CDT [facility] Blood No Phlebotomy Charged / Unknown 01/07/2025 2:15 PM CDT 01/07/2025 3:05 PM CDT us Debra Cagle MD HEMATOLOGY ORDERABLES Final Result Performing Organization Address City/[facility]/ZIP Co de Phone Number [facility] #[address] [place] [address] * MAGNESIUM (MG) (01/07/2025 2:15 PM CDT) MAGNESIUM 1.8 1.6 - 2.6 mg/dL 01/07/2025 3:28 PM CDT [facility] Blood No Phlebotomy Charged / Unknown 01/07/2025 2:15 PM CDT 01/07/2025 3:05 PM CDT Debra Cagle MD CHEMISTRY ORDERABLES Final R esult [facility] [address] [place] [address] * PHOSPHORUS (PO4) (01/07/2025 2:15 PM CDT) PHOSPHORUS 4.2 2.5 - 4.5 mg/dL 01/07/2025 3:28 PM CDT [facility] Blood No Phlebotomy Charged / Unknown 01/07/2025 2:15 PM CDT 01/07/2025 3:05 PM CDT us Debra Cagle MD CHEMISTRY ORDERABLES Final R esult [facility] [address] [place] [address] * (ABNORMAL) CMP (COMPREHENSIVE METABOLIC PANEL) (01/07/2025 2:15 PM CDT) [facility] SODIUM 135(L) 136 - 145 mmol/L 01/07/2025 3:28 PM CDT [facility] POTASSIUM 3.5 3.5 - 5.1 mmol/L 01/07/2025 3:28 PM CDT [facility] CHLORIDE 105 98 - 107 mmol/L 01/07/2025 3:28 PM CDT [facility] CO2, VENOUS 20(L) 22 - 30 mmol/L 01/07/2025 3:28 PM CDT [facility] ANION GAP 13.5 <18.0 mmol/L 01/07/2025 3:28 PM CDT [facility] GLUCOSE 121(H) 70 - 99 mg/dL 01/07/2025 3:28 PM CDT [facility] BUN 15 10 - 20 mg/dL 01/07/2025 3:28 PM CDT [facility] CREATININE, BLOOD 0.43(L) 0.60 - 1.00 mg/dL 01/07/2025 3:28 PM CDT [facility] BUN/CREATININE RATIO 35(H) 12 - 20 ratio 01/07/2025 3:28 PM CDT [facility] TOTAL PROTEIN 6.7 6.0 - 8.0 g/dL 01/07/2025 3:28 PM CDT [facility] ALBUMIN 3.3(L) 3.5 - 5.0 g/dL 01/07/2025 3:28 PM CDT [facility] A/G RATIO 1.0 1.0 - 2.2 01/07/2025 3:28 PM CDT [facility] CALCIUM 9.2 8.7 - 10.5 mg/dL 01/07/2025 3:28 PM CDT [facility] T BILI 0.3 0.2 - 1.2 mg/dL 01/07/2025 3:28 PM CDT [facility] SGOT (AST) 94(H) <43 U/L 01/07/2025 3:28 PM CDT [facility] SGPT (ALT) 100(H) <56 U/L 01/07/2025 3:28 PM CDT [facility] ALKALINE PHOSPHATASE 107 40 - 150 U/L 01/07/2025 3:28 PM CDT [facility] GFR, ESTIMATED >60 >=60 01/07/2025 3:28 PM CDT [facility] Comment: Creatinine Clearance is the preferred criteria for selecting drug dose adjustments in renally impaired patients. The GFR is provided as additional pertinent clinical information. GFR is reported in mL/min/1.73 sq m. Calculation based on the Chronic Kidney Disease Epidemiology Collaboration (CKD- EPI) equation refit without adjustment for race. GFR, EST. >60 >=60 025 3:28 PM CDT [facility] GFR, EST. NONAFRICAN >60 >=60 01/07/2025 3:28 PM CDT [facility] Blood No Phlebotomy Charged / Unknown 01/07/2025 2:15 PM CDT 01/07/2025 3:05 PM CDT us Debra Cagle MD CHEMISTRY ORDERABLES Final R esult [facility] [address] [facility] [place] [address] documented in this encounter Visit Diagnoses Diagnosis Malignant neoplasm of liver, not specified as primary or secondary (HCC) Malignant neoplasm of liver, not specified as primary or secondary documented in this encounter Care Teams Underwriting Intern Relationship Specialty Start Date End Date Provider, Unknown UNKNOWN PCP - General 01/08/25 documented as of this encounter
--- OUTSIDE RECORDS SUMMARY | 2025-01-17 20:32 | XMS_ITS ---
Author Organization [facility] Address [address] [place] [address] Care Team Providers Care Quarter Seamer Name Role Phone David Marmolejo DO Primary Care Provider [phone] Melanie Pandya formerly [facility] Unavailable Unavailable Debra Cagle MD Unavailable [phone] Active Problems Problem Noted Date Diagnosed Date [...]
--- OUTSIDE RECORDS SUMMARY | 2025-01-17 20:32 | XMS_ITS | Encounter Summary ---
Author Organization [facility] Address [address] [place] [address] Phone Care Team Providers Care Butcher Helper Name Role Phone Provider, Unknown Primary Care Provider Unavaila ble Reason for Visit * Reason Onset Date Comments Returning call. 01/16/2025 Encounter Details Date Type Department Care Team (Late Contact Info) Description [facility]/16[facility]20[facility] [address] [place] [address] Ree Alvarez, RN [place] Returning call. Social [...] - Received call from Ann TONEY with [facility] stating that she had received a message from Yue asking for the NIKI to be signed. She stated she would follow through with the request. If signed NIKI not received by tomorrow please call her at [phone]. Thank you! documented in this encounter Plan of Treatment Upcoming Encounters Date Type Department Care Team (Late st Contact Info) Description 01/21/2025 1:00 AM CDT [facility] [address] [place] [address] Iona Vanessa, TARUN [place] 01/28/2025 1:00 AM CDT Home Care Visit [address] [address] Iona Vanessa RN [place] 02/04/2025 1:00 AM CDT Home Care Visit [address] [address] Iona Vanessa RN [place] 02/11/2025 1:00 AM CDT Appointment [address] [address] Iona Vanessa, RN [place] documented as of this encounter Visit Diagnoses Not on filedocumented in this encounter Care Teams Butcher Helper Relationship Specialty Start Date End Date Provider, Unknown UNKNOWN PCP - General 01/08/25 documented as of this encounter
--- OUTSIDE RECORDS SUMMARY | 2025-01-17 20:32 | XMS_ITS | Clinical Summary ---
Author Organization [facility] Address [address] [place] [address] Phone Care Team Providers Care Dynamics Ax Consultant Name Role Phone Provider, Unknown Primary Care [...] Type Department Care Team Description 01/16/[address] [address] Ree Alvarez, RN Returning call. 01/14/2025 10:00 AM CDT Home Care Visit [address] [address] Rhonda Delgadillo, RN SN - LAB 01/14/2025 Lab Requisition [facility] [address] [place] [address] Debra Cagle MD Malignant neoplasm of liver, not specified as primary or secondary (HCC) 01/07/2025 2:00 PM CDT Home Care Visit [address] [address] Denisa Valencia RN SN - LAB 01/07/2025 Lab Requisition [facility] [address] [place] [address] Debra Cagle MD Malignant neoplasm of liver, not specified as primary or secondary (HCC) 01/04/2025 Home Care Visit [address] [address] Iona Vanessa RN CASE COMMUNICATION 01/04/2025 Plan of Care Documentation [address] [address] 01/03/2025 3:00 PM CDT Home Care Visit [address] [address] Iona Vanessa, RN SN - OASIS RESUMPTION OF CARE Discharge Disposition: Discharged to home or Selfcare 01/02/2025 Home Care Visit [address] [address] Iona Vanessa RN CASE COMMUNICATION 12/28/2024 Home Care Visit [address] [address] Iona Vanessa RN SN - [place] TRANSFER W/OUT DC 12/19/2024 2:00 PM CDT Home Care Visit [address] [address] Iona Vanessa RN SN - [place]ASIS START OF CARE 12/19/2024 Plan of Care Documentation [address] [address] from Last 3 Months Social History Tobacco [...] 01/21/2025 1:00 AM CDT Home Care Visit [address] [address] Iona Vanessa RN [place] 01/28/2025 1:00 AM CDT Home Care Visit [address] [address] Iona Vanessa RN [place] 02/04/2025 1:00 AM CDT Home Care Visit [address] [address] Iona Vanessa RN [place] 02/11/2025 1:00 AM CDT Appointment [facility] [address] [place] [address] Iona Vanessa RN [place] Health Maintenance Due Date Last Done Comments [...] - 12.00 10(3)/mcL 01/14/2025 12:15 PM CDT [facility] RBC 3.69(L) 3.80 - 5.30 10(6)/mcL 01/14/2025 12:15 PM CDT [facility] HEMOGLOBIN (HGB) 10.3(L) 12.0 - 15.8 g/dL 01/14/2025 12:15 PM CDT [facility] HEMATOCRIT (HCT) 32.7(L) 36.0 - 47.0 % 01/14/2025 12:15 PM CDT [facility] MCV 88.6 82.0 - 96.0 fL 01/14/2025 12:15 PM CDT [facility] MCH 27.9 26.0 - 34.0 pg 01/14/2025 12:15 PM CDT [facility] MCHC 31.5 31.0 - 36.0 g/dL 01/14/2025 12:15 PM CDT [facility] PLATELET COUNT 389 140 - 440 10(3)/mcL 01/14/2025 12:15 PM CDT [facility] RDW 17.0(H) 11.8 - 15.5 % 01/14/2025 12:15 PM CDT [facility] MPV 10.2 9.7 - 12.4 fL 01/14/2025 12:15 PM CDT [facility] NEUTROPHILS 68.7 47.0 - 73.0 % 01/14/2025 12:15 PM CDT [facility] LYMPHOCYTES 13.1(L) 18.0 - 42.0 % 01/14/2025 12:15 PM CDT [facility] MONOCYTES 10.7 4.0 - 12.0 % 01/14/2025 12:15 PM CDT [facility] EOSINOPHILS 5.5(H) 0.0 - 5.0 % 01/14/2025 12:15 PM CDT [facility] BASOPHILS 1.2(H) 0.0 - 1.0 % 01/14/2025 12:15 PM CDT [facility] IMMATURE GRANULOCYTE 0.8(H) 0.0 - 0.4 % 01/14/2025 12:15 PM CDT [facility] Comment:Immature Granulocyte s includes Metamyelocytes, Myelocytes, and Promyelocytes. ABSOLUTE NEUTROPHILS 5.35 1.60 - 7.70 10(3)/mcL 01/14/2025 12:15 PM CDT [facility] ABSOLUTE LYMPHOCYTES 1.02(L) 1.30 - 3.20 10(3)/mcL 01/14/2025 12:15 PM CDT [facility] ABSOLUTE MONOCYTES 0.83 0.20 - 1.00 10(3)/mcL 01/14/2025 12:15 PM CDT [facility] ABSOLUTE EOSINOPHIL 0.43(H) 0.00 - 0.40 10(3)/mcL 01/14/2025 12:15 PM CDT [facility] ABSOLUTE BASOPHILS 0.09 0.00 - 0.10 10(3)/mcL 01/14/2025 12:15 PM CDT [facility] ABSOLUTE IMMATURE GRANULOCYTE 0.06(H) 0.00 - 0.03 10 (3) mcL. 01/14/2025 12:15 PM CDT [facility] NRBC PER 100 WBC 0 01/15/20 25 12:15 PM CDT [facility] Blood No Phlebotomy Charged / Unknown 01/14/2025 1:05 AM CDT 01/14/2025 12:12 PM CDT us Debra Cagle MD HEMATOLOGY ORDERABLES Final Result Performing Organization Address City/[facility]/ZIP Co de Phone Number [facility] [address] [place] [address] * PHOSPHORUS (PO4) (01/14/2025 1:05 AM CDT) Only the most recent of2 resultswithin the time period is included. PHOSPHORUS 3.7 2.5 - 4.5 mg/dL 01/14/2025 12:48 PM CDT [facility] Blood No Phlebotomy Charged / Unknown 01/14/2025 1:05 AM CDT 01/14/2025 12:03 PM CDT us Debra Cagle MD CHEMISTRY ORDERABLES Final R esult [facility] #[address] [place] [address] * MAGNESIUM (MG) (01/14/2025 1:05 AM CDT) Only the most recent of2 resultswithin the time period is included. MAGNESIUM 2.0 1.6 - 2.6 mg/dL 01/14/2025 12:48 PM CDT [facility] Blood No Phlebotomy Charged / Unknown 01/14/2025 1:05 AM CDT 01/14/2025 12:03 PM CDT us Debra Cagle MD CHEMISTRY ORDERABLES Final R esult [facility] [address] [place] [address] * (ABNORMAL) CMP (COMPREHENSIVE METABOLIC PANEL) (01/14/2025 1:05 AM CDT) Only the most recent of2 resultswithin the time period is included. SODIUM 138 136 - 145 mmol/L 01/14/2025 12:48 PM CDT [facility] POTASSIUM 3.5 3.5 - 5.1 mmol/L 01/14/2025 12:48 PM CDT [facility] CHLORIDE 107 98 - 107 mmol/L 01/14/2025 12:48 PM CDT [facility] CO2, VENOUS 21(L) 22 - 30 mmol/L 01/14/2025 12:48 PM CDT [facility] ANION GAP 13.5 <18.0 mmol/L 01/14/2025 12:48 PM CDT [facility] GLUCOSE 127(H) 70 - 99 mg/dL 01/14/2025 12:48 PM CDT [facility] BUN 14 10 - 20 mg/dL 01/14/2025 12:48 PM CDT [facility] CREATININE, BLOOD 0.40(L) 0.60 - 1.00 mg/dL 01/14/2025 12:48 PM T [facility] BUN/CREATININE RATIO 35(H) 12 - 20 ratio 01/14/2025 12:48 PM CDT [facility] TOTAL PROTEIN 6.6 6.0 - 8.0 g/dL 01/14/2025 12:48 PM T [facility] ALBUMIN 3.4(L) 3.5 - 5.0 g/dL 01/14/2025 12:48 PM T [facility] A/G RATIO 1.1 1.0 - 2.2 01/14/2025 12:[address] [facility] CALCIUM 8.8 8.7 - 10.5 mg/dL 01/14/2025 12:48 PM T [facility] T BILI 0.4 0.2 - 1.2 mg/dL 01/14/2025 12:48 PM T [facility] SGOT (AST) 96(H) <43 U/L 01/14/2025 12:[address] [facility] SGPT (ALT) 85(H) <56 U/L 01/14/2025 12:[address] [facility] ALKALINE PHOSPHATASE 116 40 - 150 U/L 01/14/2025 12:48 PM T [facility] GFR, ESTIMATED >60 >=60 01/14/2025 12:[address] [facility] Comment: Creatinine Clearance is the preferred criteria for selecting drug dose adjustments in renally impaired patients. The GFR is provided as additional pertinent clinical information. GFR is reported in mL/min/1.73 sq m. Calculation based on the Chronic Kidney Disease Epidemiology Collaboration (CKD- EPI) equation refit without adjustment for race. GFR, EST. >60 >=60 025 12:48 PM T [facility] GFR, EST. NONAFRICAN >60 >=60 01/14/2025 12:[address] [facility] Blood No Phlebotomy Charged / Unknown 01/14/2025 1:05 AM CDT 01/14/2025 12:03 PM CDT us Debra Cagle MD CHEMISTRY ORDERABLES Final R esult [facility] [facility] [place] [address] from Last 3 Months Insurance [facility] Advance Directives * Full Code (Latest Code Status on File) Date Activated Date Inactivated Comments 12/20/2024 10:07 AM Care Teams Dynamics Ax Consultant Relationship Specialty Start Date End Date Provider, Unknown UNKNOWN PCP - General 01/08/25
--- OUTSIDE RECORDS SUMMARY | 2025-01-17 20:33 | XMS_ITS ---
Author Organization [facility] Address [address] [place] [address] Care Team Providers Care Quality Assurance Advisor Name Role Phone David Marmolejo DO Primary Care Provider [phone] Melanie Pandya [facility] Unavailable Unavailable Debra Cagle MD Unavailable [phone] Home Infusion Status:Enrolled (Active) Start date:12/13/2024 Enrollment date:12/13/2024 Related service episodes:TPN 1800mL daily (Active) Continued Care and Services Coordination This section includes services coordinated for Home Infusion. Home Medical Care Name Services Phone [facility]fusion an d Injection [phone]
--- OUTSIDE RECORDS SUMMARY | 2025-01-17 20:33 | XMS_ITS | Clinical Summary ---
Author Organization [facility] [employer] Address [address] [place] [address] Care Team Providers Care Pulley Maintainer Name Role Phone Salvador Ramirez MD Primary Care Provider + [phone] Source Comments [facility],non-owned Affiliates and Associated Physician Practices is amultiple site organization consisting of ambulatory clinics and hospital sitesin [place], [place], [place] and [place]. This disclosure is being madepursuant to the Care Everywhere program and may not contain all information available regarding this patient. Last updated 18.[facility] [employer] Allergies No known active allergies Immunizations Immunization Administration Dates Next Due INFLUENZA VACCINE, QUADR. 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
--- OUTSIDE RECORDS SUMMARY | 2025-01-17 20:33 | XMS_ITS | Encounter Summary ---
Author Organization [facility] Address [address] [place] [address] Care Team Providers Care Lace Stripper Name Role Phone David Marmolejo DO Primary Care Provider [phone]- [phone] Melanie Pandya [facility] Unavailable Unavailable Debra Cagle MD Unavailable [phone] Encounter Details Date Type Department Care Team (Late st Contact Info) Description 12/18/2024 Results Follow-Up Obstetrics and Gynecology Clinic [address] [facility] 3rd Floor [address] [place] [address] Ana Herron MD [address] [facility] [address] [place] [address] Pap and High Risk HPV [...] on file 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
--- OUTSIDE RECORDS SUMMARY | 2025-01-17 20:33 | XMS_ITS ---
Author Organization [facility] Address [address] [place] [address] Care Team Providers Care Settlement Worker Name Role Phone David Marmolejo DO Primary Care Provider [phone] Melanie Pandya [facility] Unavailable Unavailable Debra Cagle MD Unavailable [phone] TPN 1800mL daily Status:Enrolled (Active) Start date:12/13/2024 Enrollment date:12/13/2024 Linked medications:water for injection,sterile,sodium chloride,potassium chloride,potassium phos,d-ojpwo-b-basic,calcium gluconate,magnesium sulfate,dextrose 70 % in water,parenteral amino acid 10% no.6,fat emul/soy/mct /oliv/fish oil,zinc/copper/manganese/selenium (Active) Related program episode:Home Infusion (Active) Case Team Name Relationship Phone Melanie Pandya [facility](Responsible Staff) Pharmacis t Continued Care and Services Coordination This section includes services coordinated for TPN 1800mL daily. Home Medical Care Name Services Phone [facility] Home Infusion an d Injection [phone]
--- OUTSIDE RECORDS SUMMARY | 2025-01-17 20:33 | XMS_ITS | Encounter Summary ---
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) Debra Cagle MD [address] [facility] [id number] [place] [address] Phone: tel: fax: Kika Lora MD [address] [facility] [address] [place] [address] Phone: tel: fax: Referral ID Status Reason Start Date Expiration Date Visits Requested Visits Authorized [id number] Pending Review Specialty Services Required 11/27/2024 12/27/2025 1 1 Question Answer Please select the performing region: [facility] (All Locations) [[id number]] Please select the performing department: [facility] ACB5 [[id number]] Is this referral for Breast Health Multi-Disciplinary Clinic? No Does the patient have a diagnosis of a Head and Neck cancer? No To Provider NOTE: we will do our best to honor your provider preference, but scheduling the patient in a timely manner in our clinic will take precedence. KIKA LORA [[id number]] # of visits: 1 Comments Metastatic neuroendocrine tumor Encounter Details Date Type Department Care Team (Late st Contact Info) Description 11/21/2024 Results Follow-Up 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
--- OUTSIDE RECORDS SUMMARY | 2025-01-17 20:33 | XMS_ITS | Encounter Summary ---
Author Organization [facility] Healthcare Address [address] [place] [address] Care Team Providers Care Chief Of Field Operations Name Role Phone David Marmolejo DO Primary Care Provider [phone] Melanie Pandya [facility] Unavailable Unavailable Debra Cagle MD Unavailable [phone] Encounter Details Date Type Department Care Team (Late st Contact Info) Description 01/14/2025 Home Infusion [facility] Home Infusion Therapy [address] [place] [address] Brittney Mcwilliams [facility] Social History Tobacco Use Types Packs/Day Years Used Date Smoking Tobacco: Former Cigarettes 0.8 15 1 977 - 1991 Passive Smoke Exposure: Past [facility] Utilities Answer Date Recorded In the past 12 months has [employer], gas, oil, or water [employer] threatened to shut off services in your [...] often do you attend chur ch or hinduism services? Never 12/28/2024 Do you belong to any clubs o r organizations such as islam groups, unions, fraternal or athletic groups, or [...] any time in the past 12 m [facility], were you homeless or living in a penitentiary (including now)? No 12/28/2024 Personal Safety Answer Date Recorded Have you ever been in or are you currently in a harmful physical or emotional relationship or is someone making you feel afraid or unsafe? 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
--- OUTSIDE RECORDS SUMMARY | 2025-01-17 20:33 | XMS_ITS | Clinical Summary ---
Author Organization [facility] Address [address] [place] [address] Care Team Providers Care Industrial Sales Representative Name Role Phone David Marmolejo DO Primary Care Provider [phone] Melanie Pandya [facility] Unavailable Unavailable Debra Cagle MD Unavailable [phone] Allergies No known active allergies Medications fluticasone [...] mL IV as needed for line care 02000 mL 01/16/20 25 11:59 PM T 025 2025 Active heparin 10 unit/mL syringe flush syringeIndication s:Maintain Patency of Indwelling Vascular Catheter Infuse 5 mL (50 Units total) IV as needed (line care) 23266 mL 01/16/20 25 11:59 PM T 025 [...] hours by CADD pump at 150 mL/hr. 88941 mL 11 01/16/20 25 11:59 PM CDT [...] hours by CADD pump at 150 mL/hr. 13195 mL 11 12/20/19 25 3:16 PM CDT [...] Type Department Care Team Description 01/16/2025 Telephone [facility] Floor 5 [place] [address] Debra Cagle MD Spoke With Home Health Provider 01/14/2025 Documentation [facility] [address] [facility] [address] [place] [address] Ilene Wright PA 01/14/2025 Orders Only [facility] [address] [place] [address] [address] [place] [address] Calvillo Ann Samra-Corinean, DNP 01/14/2025 Home Infusion [facility] [address] [place] [address] Brittney Mcwilliams, [facility] 01/14/2025 Documentation [facility] [address] [facility] [address] [place] [address] Calvillo, Ann Samra-Loan, DNP 01/08/2025 Orders Only [facility] Surgeon 1 [place] [address] Calvillo, Ann Samra-Loan, DNP 01/08/2025 Orders Only [facility] Surgeon 1 [place] [address] Calvillo, Ann Samra-Loan, DNP 01/07/2025 Documentation [facility] [address] [facility] 5 [place] [address] Calvillo, Ann Samra-Loan, DNP 01/07/2025 Home Infusion [facility] [address] [place] [address] Brittney Mcwilliams, [facility] 01/07/2025 Telephone [facility] [address] [facility] [address] [place] [address] Karli Ann Scooby, TITA 01/07/2025 Telephone [facility] Floor 8 [place] [address] Debra Cagle MD New Parameters 01/07/2025 Telephone [facility] [address] [facility] Floor 8 [place] [address] Debra Cagle MD 01/02/2025 Plan of Care Documentation [facility] [address] [place] [address] 12/25/2024 10:05 AM CDT - 12/25/2024 2:35 PM CDT Surgery [facility] Operating Room 1 [place] [address] Debra Cagle MD ILEOCOLIC RESECTION AND OMENTECTOMY WITH TAP BLOCK 12/25/2024 9:11 AM CDT Anesthesia Event [facility] Operating Room 1 [place] [address] Te Wilson MD Conners, Jamie 12/25/2024 7:40 AM CDT - 01/02/2025 11:26 AM CDT Hospital Encounter [address] [address] Debra Cagle MD 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); Small bowel obstruction (HCC) Discharge Disposition: Discharge to [facility] 12/21/2024 1:00 PM CDT Pre-Admission Testing [facility] Center for Preoperative Assessment [facility] [address] [place] [id number] Preoperative testing (Primary Dx) 12/21/2024 Home Infusion [facility] [address] [place] [address] Adriana Escalona Small bowel obstruction (HCC); Severe malnutrition (CMS/HCC) 12/18/2024 Plan of Care Documentation [facility] [address] [place] [address] 12/18/2024 Home Infusion [facility] [address] [place] [address] Melanie Pandya, [facility] Small bowel obstruction (HCC) (Primary Dx); Severe malnutrition (CMS/HCC) 12/18/2024 Results Follow-Up [facility] [address] [facility] 3rd Floor [address] [place] [address] Ana Herron MD Pap and High Risk HPV and Genotyping (Cytology Component) 12/11/2024 10:44 AM CDT - 12/19/2024 11:11 AM CDT Hospital Encounter [address] [address] Debra Cagle MD 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) (Primary Dx); Illness, unspecified Discharge Disposition: Discharge to home, home health skilled care 12/06/2024 6:13 PM CDT - 12/06/2024 11:59 PM CDT Hospital Encounter [facility] [address] [place] [address] Well woman exam Discharge Disposition: Discharge to home or self care 12/06/2024 12:30 PM CDT Office Visit Obstetrics and Gynecology Clinic [facility] 3rd Floor [address] [place] [address] Ana Herron MD Well woman exam (Primary Dx) 12/06/2024 Documentation [facility]atobiliary, Pancreatic, & Gastrointestinal Surgery [address] [facility] 12th Floor, [place] [address] Suzette Hunt NP 12/06/2024 Orders Only [facility] Pancreatic, & Gastrointestinal Surgery [address] [facility] 12th Floor, [place] [address] Suzette Hunt NP SBO (small bowel obstruction) (HCC) (Primary Dx); Failure to thrive in adult 12/05/2024 4:00 PM CDT Lab [facility] - Lab Collection [address] [facility] Floor 6 [place] [address] 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); SBO (small bowel obstruction) (HCC) 12/05/2024 2:30 PM CDT Office Visit [facility] [address] [place] [address] Floor 6 [place] [address] Debra Cagle MD 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) (Primary Dx) 12/05/2024 Documentation [facility] Nutrition Counseling 1 [place] [address] Isac Du, RD 12/05/2024 Documentation [facility] Nutrition Counseling 1 [place] [address] Isac Du, OSMEL 12/04/2024 9:18 AM CDT - 12/04/2024 11:59 PM CDT Hospital Encounter [facility] - PET [address] [facility] Floor 8 [place] [address] Discharge Disposition: Discharge to home or self care 12/04/2024 9:17 AM CDT - 12/04/2024 11:59 PM CDT Hospital Encounter [facility] - PET [address] [facility] Floor 8 [place] [address] SBO (small bowel obstruction) (HCC) Discharge Disposition: Discharge to home or self care 12/04/2024 Orders Only [facility] [address] [facility] [address] [place] [phone] Ilene Wright PA SBO (small bowel obstruction) (HCC) (Primary Dx) 11/21/2024 Orders Only [facility] [address] [place] [address] Floor 6 [place] [phone] Debra Cagle MD 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) 11/21/2024 Orders Only [facility] [address] [facility] [address] [place] [address] Karmen Kelley CMA SBO (small bowel obstruction) (HCC) (Primary Dx) 11/21/2024 Results Follow-Up [facility] Surgeon 1 [place] [address] Debra Cagle MD Surgical pathology 11/16/2024 9:54 AM CDT - 11/16/2024 11:59 PM CDT Hospital Encounter [facility] Radiology 1 [place] [address] Epigastric pain Discharge Disposition: Discharge to home or self care 11/14/2024 Documentation [facility] Pancreatic, & Gastrointestinal Surgery [address] [facility] 12th Floor, [place] [address] Suzette Hunt NP 11/10/2024 Telephone [facility] Surgeon 1 [place] [address] Ciaran Navarro MD 11/06/2024 Orders Only [facility]atobiliary, Pancreatic, & Gastrointestinal Surgery [address] [facility] 12th Floor, [place] [address] Suzette Hunt NP Epigastric pain (Primary Dx) 11/05/2024 Telephone Radiology 1 [place] [address] Tri Ramirez MD 11/03/2024 3:44 PM CDT - 11/06/2024 1:26 PM CDT Hospital Encounter [address] [address] Debra Cagle MD Diagnosis unknown (Primary Dx) [...] Hypertension Sister Relation Name Status Comments Father DE's 1st 40s; d ied of [place] age 53 Mother Sister PONV Social History Tobacco Use Types Packs/Day Years Used Date Smoking Tobacco: Former Cigarettes 0.8 15 1 977 - 1991 Passive Smoke Exposure: Past Tobacco Cessation:Counseling Given: Not Answered [facility] Utilities Answer Date Recorded In the past 12 months has [employer], gas, oil, or water company threatened to [...] often do you attend chur ch or yarsanism services? Never 12/28/2024 Do you belong to any clubs o r organizations such as lutheran groups, unions, fraternal or athletic groups, or [...] any time in the past 12 m [facility], were you homeless or living in a senior care (including now)? No 12/28/2024 Personal Safety Answer Date Recorded Have you ever been in or are you currently in a harmful physical or emotional relationship or is someone making you feel afraid or unsafe? 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 Gender Identity Not on file Sexual [...] to liver (HCC) Small bowel obstruction (HCC) DC AN PROCEDURE PLACEHOLDER Routine 12/25/2024 9:56 AM CDT DC AN PROCEDURE PLACEHOLDER Routine 12/25/2024 9:55 AM CDT DC AN PROCEDURE PLACEHOLDER Routine 12/25/2024 9:53 AM CDT DC AN ELECTIVE ENDOTRACHEAL AIRWAY Routine 12/25/2024 9:53 [...] 19-9 Routine 11/04/2024 9 :26 AM CDT [id number], TUMOR MARKER Routine 11/04/2024 9:26 AM CDT [...] MD LAB BLOOD ORDERABLES Final R esult [facility] [address] [facility] Department [place] [address] * (ABNORMAL) CBC without differential (01/01/2025 10:14 PM CDT) WBC 7.39 3.80 - 9.90 K/cumm Hgb 8.6(L) 11.9 - 15.5 g/dL [facility] Hct 26.1(L) 35.6 - 45.5 % [facility] Plt 358 150 - 400 K/cumm [facility] MPV 10.0 9.1 - 12.3 fL [facility] RBC 3.04(L) 3.90 - 5.20 M/cumm [facility] MCV 85.9 81.3 - 96.4 fL [facility] MCH 28.3 27.1 - 33.3 pg [facility] MCHC 33.0 32.3 - 35.7 g/dL [facility] RDW CV 17.2(H) 11.1 - 14.9 % [facility] RDW SD 53.4(H) 35.7 - 48.1 fL [facility] NRBC abs 0.00 0.00 - 0.01 K/cumm [facility] Blood 01/01/2025 10:1 4 PM CDT 01/01/2025 10:34 PM CDT Debra Cagle MD LAB BLOOD ORDERABLES Final R esult Performing Organization Address [facility] Co de Phone Number [facility] [place] [address] * Phosphorus (01/01/2025 10:14 PM CDT) [facility] Phosphorus, pl 4.5 2.3 - 4.5 mg/dL Blood 01/01/2025 10:1 4 PM CDT 01/01/2025 10:34 PM CDT Debra Cagle MD LAB BLOOD ORDERABLES Final R esult Performing Organization Address [facility] de Phone Number [facility] [place] [address] * Magnesium (01/01/2025 10:14 PM CDT) [facility] Magnesium 1.9 1.4 - 2.5 mg/dL Blood 01/01/2025 10:1 4 PM CDT 01/01/2025 10:34 PM CDT Debra Cagle MD LAB BLOOD ORDERABLES Final R esult Performing Organization Address [facility] [place] [address] * (ABNORMAL) Comprehensive metabolic panel (01/01/2025 10:14 PM CDT) [facility] Sodium 137 135 - 145 mmol/L Potassium, pl 3.9 3.3 - 4.9 mmol/L [facility] Chloride 103 97 - 110 mmol/L [facility] CO2 24 22 - 32 mmol/L [facility] Anion gap 10 2 - 15 mmol/L [facility] BUN 10 6 - 25 mg/dL [facility] Creatinine 0.39(L) 0.60 - 1.10 mg/dL [facility] Glucose 83 70 - 199 mg/dL [facility] Comment: Interpretive Data Fasting glucose >/= 126 [...] 2022. Calcium 8.6 8.5 - 10.3 mg/dL [facility] Bilirubin, total 0.3 0.1 - 1.2 mg/dL [facility] Protein, pl 5.2(L) 6.5 - 8.5 g/dL [facility] Albumin 2.4(L) 3.5 - 5.0 g/dL [facility] Alk phos 78 40 - 130 Units/L [facility] ALT 45 7 - 45 Units/L [facility] AST 34 10 - 45 Units/L [facility] Blood 01/01/2025 10:1 4 PM CDT 01/01/2025 10:34 PM CDT Debra Cagle MD LAB BLOOD ORDERABLES Final R esult [facility] Department [place] [address] * eGFR (12/31/2024 9:20 PM CDT) eGFR [...] MD LAB BLOOD ORDERABLES Final R esult [facility] Department [place] [address] * (ABNORMAL) CBC without differential (12/31/2024 9:20 PM CDT) WBC 10.62(H) 3.80 - 9.90 K/cumm Hgb 9.5(L) 11.9 - 15.5 g/dL [facility] Hct 28.4(L) 35.6 - 45.5 % [facility] Plt 445(H) 150 - 400 K/cumm [facility] MPV 9.7 9.1 - 12.3 fL [facility] RBC 3.41(L) 3.90 - 5.20 M/cumm [facility] MCV 83.3 81.3 - 96.4 fL [facility] MCH 27.9 27.1 - 33.3 pg [facility] MCHC 33.5 32.3 - 35.7 g/dL [facility] RDW CV 17.1(H) 11.1 - 14.9 % [facility] RDW SD 51.6(H) 35.7 - 48.1 fL [facility] NRBC abs 0.00 0.00 - 0.01 K/cumm [facility] Blood 12/31/2024 9:20 PM CDT 12/31/2024 9:39 PM CDT Debra Cagle MD LAB BLOOD ORDERABLES Final R esult Performing Organization Address [facility] Co de Phone Number [facility] [place] [address] * (ABNORMAL) Phosphorus (12/31/2024 9:20 PM CDT) Pathologist [facility] Phosphorus, pl 4.6(H) 2.3 - 4.5 mg/dL Blood 12/31/2024 9:20 PM CDT 12/31/2024 9:32 PM CDT Debra Cagle MD LAB BLOOD ORDERABLES Final R esult Performing Organization Address [facility] Co de Phone Number [facility] [place] [address] * Magnesium (12/31/2024 9:20 PM CDT) [facility] Magnesium 1.8 1.4 - 2.5 mg/dL Blood 12/31/2024 9:20 PM CDT 12/31/2024 9:32 PM CDT Debra Cagle MD LAB BLOOD ORDERABLES Final R esult Performing Organization Address City/[facility] [place] [address] * (ABNORMAL) Comprehensive metabolic panel (12/31/2024 9:20 PM CDT) Pathologist [facility] Sodium 140 135 - 145 mmol/L Potassium, pl 4.6 3.3 - 4.9 mmol/L [facility] Chloride 106 97 - 110 mmol/L [facility] CO2 24 22 - 32 mmol/L [facility] Anion gap 10 2 - 15 mmol/L [facility] BUN 12 6 - 25 mg/dL [facility] Creatinine 0.42(L) 0.60 - 1.10 mg/dL [facility] Glucose 91 70 - 199 mg/dL [facility] Comment: Interpretive Data Fasting glucose >/= 126 [...] 2022. Calcium 8.7 8.5 - 10.3 mg/dL [facility] Bilirubin, total 0.3 0.1 - 1.2 mg/dL [facility] Protein, pl 5.6(L) 6.5 - 8.5 g/dL [facility] Albumin 2.6(L) 3.5 - 5.0 g/dL [facility] Alk phos 88 40 - 130 Units/L [facility] ALT 58(H) 7 - 45 Units/L [facility] AST 40 10 - 45 Units/L [facility] Blood 12/31/2024 9:20 PM CDT 12/31/2024 9:32 PM CDT us Debra Cagle MD LAB BLOOD ORDERABLES Final R esult [facility] Department [place] [address] * eGFR (12/31/2024 5:11 AM CDT) eGFR [...] MD LAB BLOOD ORDERABLES Final Resul t [facility] Department [place] [address] * (ABNORMAL) CBC without differential (12/31/2024 5:11 AM CDT) WBC 6.59 3.80 - 9.90 K/cumm Hgb 8.2(L) 11.9 - 15.5 g/dL [facility] Hct 24.9(L) 35.6 - 45.5 % [facility] Plt 317 150 - 400 K/cumm [facility] MPV 9.9 9.1 - 12.3 fL [facility] RBC 2.95(L) 3.90 - 5.20 M/cumm [facility] MCV 84.4 81.3 - 96.4 fL [facility] Comment:Consistent with hist orical value. MCH 27.8 27.1 - 33.3 pg [facility] MCHC 32.9 32.3 - 35.7 g/dL [facility] RDW CV 17.1(H) 11.1 - 14.9 % [facility] RDW SD 52.4(H) 35.7 - 48.1 fL [facility] NRBC abs 0.00 0.00 - 0.01 K/cumm [facility] Blood 12/31/2024 5:11 AM CDT 12/31/2024 5:26 AM CDT Iveth Bautista MD LAB BLOOD ORDERABLES Final Resul t Performing Organization Address City/[facility] Co de Phone Number [facility] [place] [address] * Phosphorus (12/31/2024 5:11 AM CDT) Pathologist [facility] Phosphorus, pl 4.5 2.3 - 4.5 mg/dL Blood 12/31/2024 5:11 AM CDT 12/31/2024 5:27 AM CDT Iveth Bautista MD LAB BLOOD ORDERABLES Final Resul t Performing Organization Address [facility] de Phone Number [facility] [place] [address] * Magnesium (12/31/2024 5:11 AM CDT) [facility] Magnesium 2.1 1.4 - 2.5 mg/dL Blood 12/31/2024 5:11 AM CDT 12/31/2024 5:27 AM CDT Iveth Bautista MD LAB BLOOD ORDERABLES Final Resul t Performing Organization Address [facility] Co de Phone Number [facility] [place] [address] * (ABNORMAL) Comprehensive metabolic panel (12/31/2024 5:11 AM CDT) [facility] Sodium 138 135 - 145 mmol/L Comment:Repeated and Verifie d Potassium, pl 3.8 3.3 - 4.9 mmol/L [facility] Chloride 105 97 - 110 mmol/L [facility] Comment:Repeated and Verifie d CO2 27 22 - 32 mmol/L [facility] Anion gap 6 2 - 15 mmol/L [facility] BUN 10 6 - 25 mg/dL [facility] Creatinine 0.35(L) 0.60 - 1.10 mg/dL [facility] Glucose 153 70 - 199 mg/dL [facility] Comment: Interpretive Data Fasting glucose >/= 126 [...] 2022. Calcium 7.9(L) 8.5 - 10.3 mg/dL [facility] Bilirubin, total 0.2 0.1 - 1.2 mg/dL [facility] Protein, pl 4.7(L) 6.5 - 8.5 g/dL [facility] Albumin 2.5(L) 3.5 - 5.0 g/dL [facility] Alk phos 79 40 - 130 Units/L [facility] ALT 55(H) 7 - 45 Units/L [facility] AST 34 10 - 45 Units/L [facility] Blood 12/31/2024 5:11 AM CDT 12/31/2024 5:27 AM CDT us Iveth Bautista MD LAB BLOOD ORDERABLES Final Resul t [facility] Department [place] [address] * eGFR (12/30/2024 11:09 PM CDT) eGFR [...] Edited Result - Final Performing Organization Address City/[facility]/ZIP Co de Phone Number [facility] Department [place] [address] * Critical Result Callback Chemistry (12/30/2024 11:09 PM CDT) Date Notified [id number] Time Notified 314 MAYA CANO TestName Glucose, Potassium plas MAYA WITT Called/Read Back Christal CANO Credentials RN MAYA WITT Called By IDA CANO Blood 12/30/2024 11:0 9 PM CDT 12/31/2024 2:22 AM CDT us Debra Cagle MD LAB BLOOD ORDERABLES Final R esult [facility] Department [place] [address] * (ABNORMAL) CBC without differential (12/30/2024 11:09 PM CDT) [facility] WBC 7.58 3.80 - 9.90 K/cumm Hgb 8.7(L) 11.9 - 15.5 g/dL [facility] Hct 26.6(L) 35.6 - 45.5 % [facility] Plt 325 150 - 400 K/cumm [facility] MPV 13.0(H) 9.1 - 12.3 fL [facility] RBC 2.92(L) 3.90 - 5.20 M/cumm [facility] MCV 91.1 81.3 - 96.4 fL [facility] Comment:MCV delta due to glu cose > 500. MCH 29.8 27.1 - 33.3 pg [facility] MCHC 32.7 32.3 - 35.7 g/dL [facility] RDW CV 18.2(H) 11.1 - 14.9 % [facility] RDW SD 59.9(H) 35.7 - 48.1 fL [facility] NRBC abs 0.02(H) 0.00 - 0.01 K/cumm [facility] Blood 12/30/2024 11:0 9 PM CDT 12/31/2024 2:22 AM CDT Debra Cagle MD LAB BLOOD ORDERABLES Final R esult [facility] Department [place] [address] * Phosphorus (12/30/2024 11:09 PM CDT) [facility] Phosphorus, pl See Comment 2.3 - 4.5 [...] Edited Result - Final Performing Organization Address [facility] de Phone Number [facility] [place] [address] * Magnesium (12/30/2024 11:09 PM CDT) Magnesium [...] Edited Result - Final Performing Organization Address [facility] [place] [address] * Comprehensive metabolic panel (12/30/2024 11:09 PM CDT) Sodium See Comment 135 - 145 mmol/L Comment:Credited: Sample inv estigated and is suggestive of an improper collection (e.g., IV fluid contamination, improper tube type). Deleted at the Request of Christal Toney) on 12/31/2024 03:39:40 CDT by SK . Potassium, pl See Comment 3.3 - 4.9 mmol/L [facility] Comment:Credited: Sample inv estigated and is suggestive of an improper collection (e.g., IV fluid contamination, improper tube type). Deleted at the Request of Christal Toney) on 12/31/2024 03:39:40 CDT by SK . Chloride See Comment 97 - 110 mmol/L [facility] Comment:Credited: Sample inv estigated and is suggestive of an improper collection (e.g., IV fluid contamination, improper tube type). Deleted at the Request of Christal Toney) on 12/31/2024 03:39:40 CDT by SK . CO2 See Comment 22 - 32 mmol/L [facility] Comment:Credited: Sample inv estigated and is suggestive of an improper collection (e.g., IV fluid contamination, improper tube type). Deleted at the Request of Christal Gupta(TARUN) on 12/31/2024 03:39:40 CDT by SK . Anion gap See Comment 2 - 15 mmol/L [facility] Comment:Credited: Sample inv estigated and is suggestive of an improper collection (e.g., IV fluid contamination, improper tube type). Deleted at the Request of Christal Toney) on 12/31/2024 03:39:40 CDT by SK . BUN See Comment 6 - 25 mg/dL [facility] Comment:Credited: Sample inv estigated and is suggestive of an improper collection (e.g., IV fluid contamination, improper tube type). Deleted at the Request of Christal Toney) on 12/31/2024 03:39:40 CDT by SK . Creatinine See Comment 0.60 - 1.10 mg/dL [facility] Comment:Credited: Sample inv estigated and is suggestive of an improper collection (e.g., IV fluid contamination, improper tube type). Deleted at the Request of Christal Toney) on 12/31/2024 03:39:40 CDT by SK . Glucose See Comment 70 - 199 mg/dL [facility] Comment: Credited: Sample investigated and is suggestive [...] See Comment 8.5 - 10.3 mg/dL [facility] Comment:Credited: Sample inv estigated and is suggestive of an improper collection (e.g., IV fluid contamination, improper tube type). Deleted at the Request of Christal Gupta(RN) on 12/31/2024 03:39:40 CDT by SK . Bilirubin, total See Comment 0.1 - 1.2 mg/dL [facility] Comment:Credited: Sample inv estigated and is suggestive of an improper collection (e.g., IV fluid contamination, improper tube type). Deleted at the Request of Christal Gupta(TARUN) on 12/31/2024 03:39:40 CDT by SK . Protein, pl See Comment 6.5 - 8.5 g/dL [facility] Comment:Credited: Sample inv estigated and is suggestive of an improper collection (e.g., IV fluid contamination, improper tube type). Deleted at the Request of Christal Gupta(TARUN) on 12/31/2024 03:39:40 CDT by SK . Albumin See Comment 3.5 - 5.0 g/dL [facility] Comment:Credited: Sample inv estigated and is suggestive of an improper collection (e.g., IV fluid contamination, improper tube type). Deleted at the Request of Christal Toney) on 12/31/2024 03:39:40 CDT by SK . Alk phos See Comment 40 - 130 Units/L [facility] Comment:Credited: Sample inv estigated and is suggestive of an improper collection (e.g., IV fluid contamination, improper tube type). Deleted at the Request of Christal Toney) on 12/31/2024 03:39:40 CDT by SK . ALT See Comment 7 - 45 Units/L [facility] Comment: After removal of gross lipemia. Credited: Sample investigated and is suggestive of an improper collection (e.g., IV fluid contamination, improper tube type). Deleted at the Request of Christal Gupta(RN) on 12/31/2024 03:39:40 CDT by SK . AST See Comment 10 - 45 Units/L [facility] Comment: After removal of gross lipemia. Credited: Sample investigated and is suggestive of an improper collection (e.g., IV fluid contamination, improper tube type). Deleted at the Request of Christal Toney) on 12/31/2024 03:39:40 CDT by SK . Blood 12/30/2024 11:0 9 PM CDT 12/31/2024 2:09 AM CDT Debra Cagle MD LAB BLOOD ORDERABLES Edited Result - Final Performing Organization Address [facility]/ZIP Co de Phone Number [facility] Department [place] [address] * Infection Prevention VRE Culture Stool (12/30/2024 6:47 AM CDT) Report Final Report: Negative Stool 12/30/2024 6:47 AM CDT 12/30/2024 9:17 AM CDT Narrative [facility] - 01/01/2025 11:46 AM CDT Surveillance culture for Infection Prevention purposes only; results indicate colonization, not infection requiring treatment. Testing performed by [facility] ([phone]). Debra Cagle MD LAB MICROBIOLOGY - GENERAL O RDERABLES Final Result [facility] [place] [address] * C. difficile testing Stool (12/30/2024 6:43 AM CDT) GDH Result Positive Negative Toxin Result Negative Negative [facility] C. diff result Negative, free toxin. Negative, free toxin [facility] C. diff interp GDH+/toxin- results almost never represent true C. difficile infection (CDI). Results may represent colonization with C. difficile without CDI, detection of a bacteria other than toxigenic C. difficile, or a false negative toxin assay. If there is a high index of suspicion for CDI, additional testing by PCR is available upon request. [facility] Stool 12/30/2024 6:43 AM CDT 12/30/2024 7:37 AM CDT us Debra Cagle MD LAB MICROBIOLOGY - GENERAL O RDERABLES Final Result Performing Organization Address City/[facility]/ZIP Co de Phone Number [facility] Department [place] [address] * eGFR (12/29/2024 8:32 PM CDT) eGFR [...] MD LAB BLOOD ORDERABLES Final R esult [facility] Department [place] [address] * (ABNORMAL) CBC without differential (12/29/2024 8:32 PM CDT) [facility] WBC 7.14 3.80 - 9.90 K/cumm Hgb 9.3(L) 11.9 - 15.5 g/dL [facility] Hct 27.7(L) 35.6 - 45.5 % [facility] Plt 330 150 - 400 K/cumm [facility] MPV 9.7 9.1 - 12.3 fL [facility] RBC 3.38(L) 3.90 - 5.20 M/cumm [facility] MCV 82.0 81.3 - 96.4 fL [facility] MCH 27.5 27.1 - 33.3 pg [facility] MCHC 33.6 32.3 - 35.7 g/dL [facility] RDW CV 17.2(H) 11.1 - 14.9 % [facility] RDW SD 50.4(H) 35.7 - 48.1 fL [facility] NRBC abs 0.00 0.00 - 0.01 K/cumm [facility] Blood 12/29/2024 8:32 PM CDT 12/29/2024 8:54 PM CDT us Debra Cagle MD LAB BLOOD ORDERABLES Final R esult [facility] Department [place] [address] * Phosphorus (12/29/2024 8:32 PM CDT) [facility] Phosphorus, pl 4.2 2.3 - 4.5 mg/dL Blood 12/29/2024 8:32 PM CDT 12/29/2024 8:53 PM CDT Debra Calge MD LAB BLOOD ORDERABLES Final R esult [facility] Department [place] [address] * Magnesium (12/29/2024 8:32 PM CDT) [facility] Magnesium 1.9 1.4 - 2.5 mg/dL Blood 12/29/2024 8:32 PM CDT 12/29/2024 8:53 PM CDT Debra Cagle MD LAB BLOOD ORDERABLES Final R esult Performing Organization Address [facility] Co de Phone Number [facility] [place] [address] * (ABNORMAL) Comprehensive metabolic panel (12/29/2024 8:32 PM CDT) [facility] Sodium 137 135 - 145 mmol/L Potassium, pl 4.0 3.3 - 4.9 mmol/L [facility] Chloride 104 97 - 110 mmol/L [facility] CO2 25 22 - 32 mmol/L [facility] Anion gap 8 2 - 15 mmol/L [facility] BUN 11 6 - 25 mg/dL [facility] Creatinine 0.39(L) 0.60 - 1.10 mg/dL [facility] Glucose 81 70 - 199 mg/dL [facility] Comment: Interpretive Data Fasting glucose >/= 126 [...] 2022. Calcium 8.3(L) 8.5 - 10.3 mg/dL [facility] Bilirubin, total 0.4 0.1 - 1.2 mg/dL [facility] Protein, pl 5.0(L) 6.5 - 8.5 g/dL [facility] Albumin 2.4(L) 3.5 - 5.0 g/dL [facility] Alk phos 86 40 - 130 Units/L [facility] ALT 75(H) 7 - 45 Units/L [facility] AST 71(H) 10 - 45 Units/L [facility] Blood 12/29/2024 8:32 PM CDT 12/29/2024 8:53 PM CDT us Debra Cagle MD LAB BLOOD ORDERABLES Final R esult Performing Organization Address City/[facility]/ZIP Co de Phone Number [facility] Department [place] [address] * eGFR (12/28/2024 8:04 PM CDT) eGFR [...] MD LAB BLOOD ORDERABLES Final R esult [facility] [place] [address] * (ABNORMAL) CBC without differential (12/28/2024 8:04 PM CDT) [facility] WBC 7.51 3.80 - 9.90 K/cumm Hgb 8.3(L) 11.9 - 15.5 g/dL [facility] Hct 25.3(L) 35.6 - 45.5 % [facility] Plt 275 150 - 400 K/cumm [facility] MPV 10.1 9.1 - 12.3 fL [facility] RBC 3.00(L) 3.90 - 5.20 M/cumm [facility] MCV 84.3 81.3 - 96.4 fL [facility] MCH 27.7 27.1 - 33.3 pg [facility] MCHC 32.8 32.3 - 35.7 g/dL [facility] RDW CV 17.2(H) 11.1 - 14.9 % [facility] RDW SD 52.4(H) 35.7 - 48.1 fL [facility] NRBC abs 0.00 0.00 - 0.01 K/cumm [facility] Blood 12/28/2024 8:04 PM CDT 12/28/2024 8:57 PM CDT us Debra Cagle MD LAB BLOOD ORDERABLES Final R esult [facility] Department [place] [address] * Phosphorus (12/28/2024 8:04 PM CDT) [facility] Phosphorus, pl 3.2 2.3 - 4.5 mg/dL Blood 12/28/2024 8:04 PM CDT 12/28/2024 8:47 PM CDT us Debra Cagle MD LAB BLOOD ORDERABLES Final R esult [facility] Department [place] [address] * Magnesium (12/28/2024 8:04 PM CDT) Pathologist [facility] [place] Magnesium 1.8 1.4 - 2.5 mg/dL Blood 12/28/2024 8:04 PM CDT 12/28/2024 8:47 PM CDT Debra Cagle MD LAB BLOOD ORDERABLES Final R esult Performing Organization Address [facility] Co de Phone Number [facility] Department [place] [address] * (ABNORMAL) Comprehensive metabolic panel (12/28/2024 8:04 PM CDT) [facility] Sodium 140 135 - 145 mmol/L Potassium, pl 4.1 3.3 - 4.9 mmol/L [facility] Chloride 107 97 - 110 mmol/L [facility] CO2 27 22 - 32 mmol/L [facility] Anion gap 6 2 - 15 mmol/L [facility] BUN 11 6 - 25 mg/dL [facility] Creatinine 0.36(L) 0.60 - 1.10 mg/dL [facility] Glucose 79 70 - 199 mg/dL [facility] Comment: Interpretive Data Fasting glucose >/= 126 [...] 2022. Calcium 7.9(L) 8.5 - 10.3 mg/dL [facility] Bilirubin, total 0.4 0.1 - 1.2 mg/dL [facility] Protein, pl 4.5(L) 6.5 - 8.5 g/dL [facility] Albumin 2.2(L) 3.5 - 5.0 g/dL [facility] Alk phos 70 40 - 130 Units/L [facility] ALT 57(H) 7 - 45 Units/L [facility] AST 50(H) 10 - 45 Units/L [facility] Blood 12/28/2024 8:04 PM CDT 12/28/2024 8:47 PM CDT us Debra Cagle MD LAB BLOOD ORDERABLES Final R esult [facility] Department [place] [address] * (ABNORMAL) Hepatic function panel (12/28/2024 6:04 AM CDT) Pathologist [facility] [place] Bilirubin, total 0.3 0.1 - 1.2 mg/dL Bilirubin, direct 0.2 0.1 - 0.3 mg/dL [facility] Protein, pl 4.5(L) 6.5 - 8.5 g/dL [facility] Albumin 2.2(L) 3.5 - 5.0 g/dL [facility] Alk phos 61 40 - 130 Units/L [facility] ALT 44 7 - 45 Units/L [facility] AST 42 10 - 45 Units/L [facility] Blood 12/28/2024 6:04 AM CDT 12/28/2024 6:45 AM CDT us Debra Cagle MD LAB BLOOD ORDERABLES Final R esult [facility] Department [place] [address] * eGFR (12/27/2024 8:22 PM CDT) eGFR [...] MD LAB BLOOD ORDERABLES Final R esult [facility] Department [place] [address] * (ABNORMAL) CBC without differential (12/27/2024 8:22 PM CDT) WBC 9.97(H) 3.80 - 9.90 K/cumm Hgb 9.1(L) 11.9 - 15.5 g/dL [facility] Hct 26.5(L) 35.6 - 45.5 % [facility] Plt 265 150 - 400 K/cumm [facility] MPV 9.8 9.1 - 12.3 fL [facility] RBC 3.29(L) 3.90 - 5.20 M/cumm [facility] MCV 80.5(L) 81.3 - 96.4 fL [facility] MCH 27.7 27.1 - 33.3 pg [facility] MCHC 34.3 32.3 - 35.7 g/dL [facility] RDW CV 17.1(H) 11.1 - 14.9 % [facility] RDW SD 49.8(H) 35.7 - 48.1 fL [facility] NRBC abs 0.00 0.00 - 0.01 K/cumm [facility] Blood 12/27/2024 8:22 PM CDT 12/27/2024 8:51 PM CDT us Debra Cagle MD LAB BLOOD ORDERABLES Final R esult Performing Organization Address City/State/[facility] Co de Phone Number [facility] [place] [address] * Phosphorus (12/27/2024 8:22 PM CDT) Pathologist [facility] [place] Phosphorus, pl 2.4 2.3 - 4.5 mg/dL Blood 12/27/2024 8:22 PM CDT 12/27/2024 8:51 PM CDT us Debra Cagle MD LAB BLOOD ORDERABLES Final R esult Performing Organization Address City/[facility] Co de Phone Number [facility] [place] [address] * Magnesium (12/27/2024 8:22 PM CDT) Pathologist [facility] [place] Magnesium 1.8 1.4 - 2.5 mg/dL Blood 12/27/2024 8:22 PM CDT 12/27/2024 8:51 PM CDT Debra Cagle MD LAB BLOOD ORDERABLES Final R esult Performing Organization Address City/[facility] Co de Phone Number [facility] [place] [address] * (ABNORMAL) Basic metabolic panel (12/27/2024 8:22 PM CDT) Pathologist [facility] [place] Sodium 140 135 - 145 mmol/L Potassium, pl 3.1(L) 3.3 - 4.9 mmol/L [facility] Chloride 103 97 - 110 mmol/L [facility] CO2 30 22 - 32 mmol/L [facility] Anion gap 7 2 - 15 mmol/L [facility] BUN 8 6 - 25 mg/dL [facility] Creatinine 0.37(L) 0.60 - 1.10 mg/dL [facility] Glucose 84 70 - 199 mg/dL [facility] Comment: Interpretive Data Fasting glucose >/= 126 [...] 2022. Calcium 8.1(L) 8.5 - 10.3 mg/dL [facility] Blood 12/27/2024 8:22 PM CDT 12/27/2024 8:51 PM CDT us Debra Cagle MD LAB BLOOD ORDERABLES Final R esult [facility] Department [place] [address] * (ABNORMAL) Iron profile w/ IBC (12/27/2024 10:37 AM CDT) Iron 22(L) 35 - 145 mcg/dL Comment:Reviewed TIBC 106(L) 250 - 400 mcg/dL [facility] Transferrin saturation 21 20 - 50 % [facility] Blood 12/27/2024 10:3 7 AM CDT 12/27/2024 11:25 AM CDT us Suzette K. Meirink DATA ANALYTICS DEVELOPER LAB BLOOD ORDERABLES Final Result [facility] Department [place] [address] * ECG 12 lead (12/27/2024 10:36 AM CDT) Ventricular Rate EKG/Min 122 BPM [facility] Atrial Rate 122 BPM [facility] DC-Interval (MSEC) 148 ms [facility] QRS-Interval (MSEC) 84 ms [facility] QT-Interval (MSEC) 332 ms [facility] QTc 473 ms [facility] P [place] 76 degrees [facility] R [place] 53 degrees [facility] T [place] 77 degrees [facility] Diagnosis Sinus tachycardia Otherwise normal ECG When compared with ECG of 26-DEC-2024 05:36, No significant change was found Confirmed by JOSÉ MIGUEL SANDOVAL M.D ([id number]) on 12/28/2024 4:38:34 PM [facility] 12/27/2024 10:3 6 AM CDT 12/28/2024 4:38 PM CDT us Suzette Hunt DATA ANALYTICS DEVELOPER ECG ORDERABLES Final Resu lt Performing Organization Address City/[facility] Co de Phone Number [facility] * eGFR (12/26/2024 8:50 PM CDT) eGFR [...] ORDERABLES Final R esult Performing Organization Address City/[facility]/ZIP Co de Phone Number [facility] [place] [address] * (ABNORMAL) CBC without differential (12/26/2024 8:50 PM CDT) WBC 11.21(H) 3.80 - 9.90 K/cumm Hgb 9.7(L) 11.9 - 15.5 g/dL [facility] Hct 28.6(L) 35.6 - 45.5 % [facility] Plt 251 150 - 400 K/cumm [facility] MPV 10.1 9.1 - 12.3 fL [facility] RBC 3.53(L) 3.90 - 5.20 M/cumm [facility] MCV 81.0(L) 81.3 - 96.4 fL [facility] MCH 27.5 27.1 - 33.3 pg [facility] MCHC 33.9 32.3 - 35.7 g/dL [facility] RDW CV 16.9(H) 11.1 - 14.9 % [facility] RDW SD 49.3(H) 35.7 - 48.1 fL [facility] NRBC abs 0.00 0.00 - 0.01 K/cumm [facility] Blood 12/26/2024 8:50 PM CDT 12/26/2024 11:07 PM CDT us Debra Cagle MD LAB BLOOD ORDERABLES Final R esult Performing Organization Address City/[facility]/ZIP Co de Phone Number [facility] Department [place] [address] * Phosphorus (12/26/2024 8:50 PM CDT) [facility] Phosphorus, pl 3.3 2.3 - 4.5 mg/dL Blood 12/26/2024 8:50 PM CDT 12/26/2024 10:40 PM CDT Debra Cagle MD LAB BLOOD ORDERABLES Final R esult Performing Organization Address City/[facility]/[place] [address] * Magnesium (12/26/2024 8:50 PM CDT) [facility] Magnesium 1.9 1.4 - 2.5 mg/dL Blood 12/26/2024 8:50 PM CDT 12/26/2024 10:40 PM CDT Debra Cagle MD LAB BLOOD ORDERABLES Final R esult Performing Organization Address City/[facility] [place] [address] * (ABNORMAL) Basic metabolic panel (12/26/2024 8:50 PM CDT) [facility] Sodium 137 135 - 145 mmol/L Potassium, pl 3.7 3.3 - 4.9 mmol/L [facility] Chloride 104 97 - 110 mmol/L [facility] CO2 27 22 - 32 mmol/L [facility] Anion gap 6 2 - 15 mmol/L [facility] BUN 9 6 - 25 mg/dL [facility] Creatinine 0.41(L) 0.60 - 1.10 mg/dL [facility] Glucose 86 70 - 199 mg/dL [facility] Comment: Interpretive Data Fasting glucose >/= 126 [...] 2022. Calcium 8.2(L) 8.5 - 10.3 mg/dL [facility] Blood 12/26/2024 8:50 PM CDT 12/26/2024 10:40 PM CDT Debra Cagle MD LAB BLOOD ORDERABLES Final R esult Performing Organization Address [facility]/ZIP Co de Phone Number [facility] [place] [address] * Transfuse RBC (12/26/2024 4:29 PM CDT) Blood Suzette Hunt NP BLOOD TRANSFUSION ORDERABL ES Final Result Performing Organization Address City/[facility]/ZIP Co de Phone Number [facility] [place] [address] * Prepare RBC: 1 Units (12/26/2024 12:09 PM CDT) Product code [id number] Unit Number [id number]- Y [facility] Product Blood Type ANEG [facility] Dispense Status PRESUMED TRANSFUSED [facility] Blood 12/26/2024 12:0 9 PM CDT 12/26/2024 12:08 PM CDT Narrative [facility] - 12/27/2024 12:56 AM CDT Are special requirements needed? (All products are leukoreduced and CMV- safe)- >No Date required:-[id number] LRRBC # of [id number] Reasons:-Active bleeding, Hgb <8 g/dL} Suzette Hunt NP BLOOD BANK PRODUCT ORDERAB LES Final Result [facility] Department [place] [address] * (ABNORMAL) Differential, auto (12/26/2024 11:09 AM CDT) Neutrophil abs 8.49(H) 1.50 - 6.50 K/cumm Imm gran abs 0.03 0.00 - 0.10 K/cumm [facility] Lymphocyte abs 0.90 0.80 - 3.30 K/cumm [facility] Monocyte abs 0.96(H) 0.20 - 0.80 K/cumm [facility] Eosinophil abs 0.07 0.00 - 0.50 K/cumm [facility] Basophil abs 0.03 0.00 - 0.10 K/cumm [facility] Neutrophil pct 80.9 % [facility] Comment: Interpretive Data Percent cell count reference ranges are not reported, since discordance with absolute values may lead to misinterpretation of CBC data. Current Interpretive Data was last revised on 2017. Imm gran pct 0.3 % [facility] Comment: Interpretive Data Percent cell count reference ranges are not reported, since discordance with absolute values may lead to misinterpretation of CBC data. Current Interpretive Data was last revised on 2017. Lymphocyte pct 8.6 % [facility] Comment: Interpretive Data Percent cell count reference ranges are not reported, since discordance with absolute values may lead to misinterpretation of CBC data. Current Interpretive Data was last revised on 2017. Monocyte pct 9.2 % [facility] Comment: Interpretive Data Percent cell count reference ranges are not reported, since discordance with absolute values may lead to misinterpretation of CBC data. Current Interpretive Data was last revised on 2017. Eosinophil pct 0.7 % [facility] Comment: Interpretive Data Percent cell count reference ranges are not reported, since discordance with absolute values may lead to misinterpretation of CBC data. Current Interpretive Data was last revised on 2017. Basophil pct 0.3 % [facility] Comment: Interpretive Data Percent cell count reference ranges are not reported, since discordance with absolute values may lead to misinterpretation of CBC data. Current Interpretive Data was last revised on 2017. Blood 12/26/2024 11:0 9 AM CDT 12/26/2024 11:22 AM CDT Suzette Hunt NP LAB BLOOD ORDERABLES Final Result Performing Organization Address City/[facility] Co de Phone Number [facility] [place] [address] * (ABNORMAL) CBC with auto differential (12/26/2024 11:09 AM CDT) WBC 10.48(H) 3.80 - 9.90 K/cumm Hgb 7.9(L) 11.9 - 15.5 g/dL [facility] Hct 23.0(L) 35.6 - 45.5 % [facility] Plt 267 150 - 400 K/cumm [facility] MPV 10.4 9.1 - 12.3 fL [facility] RBC 2.80(L) 3.90 - 5.20 M/cumm [facility] MCV 82.1 81.3 - 96.4 fL [facility] MCH 28.2 27.1 - 33.3 pg [facility] MCHC 34.3 32.3 - 35.7 g/dL [facility] RDW CV 17.2(H) 11.1 - 14.9 % [facility] RDW SD 51.1(H) 35.7 - 48.1 fL [facility] NRBC abs 0.00 0.00 - 0.01 K/cumm [facility] Blood 12/26/2024 11:0 9 AM CDT 12/26/2024 11:22 AM CDT Suzette Hunt NP LAB BLOOD ORDERABLES Final Result Performing Organization Address [facility]/ZIP Co de Phone Number [facility] Department [place] [address] * (ABNORMAL) CBC without differential (12/26/2024 5:59 AM CDT) [facility] WBC 9.60 3.80 - 9.90 K/cumm Hgb 8.0(L) 11.9 - 15.5 g/dL [facility] Hct 24.4(L) 35.6 - 45.5 % [facility] Plt 280 150 - 400 K/cumm [facility] MPV 10.6 9.1 - 12.3 fL [facility] RBC 2.93(L) 3.90 - 5.20 M/cumm [facility] MCV 83.3 81.3 - 96.4 fL [facility] MCH 27.3 27.1 - 33.3 pg [facility] MCHC 32.8 32.3 - 35.7 g/dL [facility] RDW CV 17.2(H) 11.1 - 14.9 % [facility] RDW SD 51.3(H) 35.7 - 48.1 fL [facility] NRBC abs 0.00 0.00 - 0.01 K/cumm [facility] [facility] Blood 12/26/2024 5:59 AM CDT 12/26/2024 6:29 AM CDT us Debra Cagle MD LAB BLOOD ORDERABLES Final R esult [facility] Department [place] [address] * ECG 12 lead (12/26/2024 5:36 AM CDT) [facility] Ventricular Rate EKG/Min 125 BPM [facility] Atrial Rate 125 BPM [facility] DC-Interval (MSEC) 124 ms [facility] QRS-Interval (MSEC) 76 ms [facility] QT-Interval (MSEC) 322 ms [facility] QTc 464 ms [facility] P [place] 76 degrees [facility] R [place] 64 degrees [facility] T [place] 79 degrees [facility] Diagnosis Sinus tachycardia Otherwise normal ECG No previous ECGs available Confirmed by MIREYA GODWIN M.D ([id number]) on 12/26/2024 12:49:00 PM [facility] 12/26/2024 5:36 AM CDT 12/26/2024 12:49 PM CDT us Debra Cagle MD ECG ORDERABLES Final Result [facility] * eGFR (12/25/2024 8:01 PM CDT) eGFR [...] CDT 12/25/2024 8:33 PM CDT us Debra Cgale MD LAB BLOOD ORDERABLES Final R esult [facility] Department [place] [address] * (ABNORMAL) CBC without differential (12/25/2024 8:01 PM CDT) WBC 9.16 3.80 - 9.90 K/cumm Hgb 8.7(L) 11.9 - 15.5 g/dL [facility] Comment:Hemoglobin delta due to surgical procedure. Hct 25.1(L) 35.6 - 45.5 % [facility] Plt 246 150 - 400 K/cumm [facility] MPV 10.2 9.1 - 12.3 fL [facility] RBC 3.05(L) 3.90 - 5.20 M/cumm [facility] MCV 82.3 81.3 - 96.4 fL [facility] MCH 28.5 27.1 - 33.3 pg [facility] MCHC 34.7 32.3 - 35.7 g/dL [facility] RDW CV 17.0(H) 11.1 - 14.9 % [facility] RDW SD 50.4(H) 35.7 - 48.1 fL [facility] NRBC abs 0.00 0.00 - 0.01 K/cumm [facility] Blood 12/25/2024 8:01 PM CDT 12/25/2024 8:33 PM CDT us Debra Cagle MD LAB BLOOD ORDERABLES Final R esult Performing Organization Address City/[facility]/ZIP Co de Phone Number [facility] [place] [address] * Phosphorus (12/25/2024 8:01 PM CDT) Phosphorus, pl 3.4 2.3 - 4.5 mg/dL Blood 12/25/2024 8:01 PM CDT 12/25/2024 8:33 PM CDT us Debra Cagle MD LAB BLOOD ORDERABLES Final R esult [facility] [place] [address] * Magnesium (12/25/2024 8:01 PM CDT) Magnesium 1.5 1.4 - 2.5 mg/dL Blood 12/25/2024 8:01 PM CDT 12/25/2024 8:33 PM CDT Debra Cagle MD LAB BLOOD ORDERABLES Final R esult Performing Organization Address City/[facility]/ZIP Co de Phone Number [facility] [place] [address] * (ABNORMAL) Basic metabolic panel (12/25/2024 8:01 PM CDT) [facility] Sodium 136 135 - 145 mmol/L Potassium, pl 4.1 3.3 - 4.9 mmol/L [facility] Chloride 105 97 - 110 mmol/L [facility] CO2 25 22 - 32 mmol/L [facility] Anion gap 6 2 - 15 mmol/L [facility] BUN 10 6 - 25 mg/dL [facility] Creatinine 0.35(L) 0.60 - 1.10 mg/dL [facility] Glucose 132 70 - 199 mg/dL [facility] Comment: Interpretive Data Fasting glucose >/= 126 [...] 2022. Calcium 8.5 8.5 - 10.3 mg/dL [facility] Blood 12/25/2024 8:01 PM CDT 12/25/2024 8:33 PM CDT Debra Cagle MD LAB BLOOD ORDERABLES Final R esult Performing Organization Address [facility]/ZIP Co de Phone Number [facility] [place] [address] * (ABNORMAL) POC Blood Gas and Chemistries, Arterial - (12/25/2024 11:08 AM CDT) pH, Art POC 7.35 7.35 - 7.45 pCO2, Art POC 36 35 - 45 mmHg [facility] pO2, Art POC 225(H) 83 - 108 mmHg [facility] Na, POC 136 135 - 145 mmol/L [facility] K POC 3.9 3.3 - 4.9 mmol/L [facility] Comment: Interpretive Data Not all point of care methods assess for hemolysis. Confirm with instrument and retest K+ if not consistent with clinical signs and symptoms. Current Interpretive Data was last revised on 2023. Cl, POC 109 97 - 110 mmol/L [facility] Ionized Ca, POC 4.57 4.50 - 5.10 mg/dL [facility] Glucose, POC 181 70 - 199 mg/dL [facility] Lactate POC 1.3 0.7 - 2.0 mmol/L [facility] SO2 (yash) arterial 99(H) 90 - 95 % [facility] Base excess, POC -5.2 mmol/L [facility] Hct, POC 29.0(L) 36.3 - 45.3 % [facility] Total Hb, POC 9.8(L) 11.9 - 15.5 g/dL [facility] Blood 12/25/2024 11:0 8 AM CDT 12/25/2024 11:08 AM CDT us Debra Cagle MD LAB POCT ORDERABLES - DEVICE Final Result [facility] Department [place] [address] * Surgical pathology (12/25/2024 11:04 AM CDT) Small bowel, resection for tumor 12/25/2024 11:04 AM CDT 12/25/2024 11:25 AM CDT Narrative 12/31/2024 3:16 PM CDT EPIC results best viewed via link to PDF [facility] [place] [address] Note to Patients: This report may contain [...] Gender: F : 1960 (Age: 64) Address: [address] [place] [address] Hospital #: [id number] Taken:12/25/2024 Received:12/25/2024 Reported: 12/31/2024 Patient Type: [facility] Inpatient Service: Surgery Location: [place] [address] Physician(s): MD Estephanie Boswell MD David Yablonsky, [...] appendix - Pathologic stage (AJCC 8th edition): [id number]; see comment - Marked small bowel kinking [...] ranging from 0.2 cm to 1.0 cm. Logistics Clerk sections are submitted as follows: A1 = [...] distal tip (entire appendix submitted); A8-12 = telephone sales representative tagged small bowel mass including closest approach to serosa and black inked radial margin; A13-A14 = telephone sales representative larger mesenteric nodule perpendicular to black [...] from 0.1 cm up to 1.0 cm. Logistics Clerk sections are submitted in C1-5. Jar 2. D. Designated additional small bowel and colon is an apparent short segment of small bowel (4.5 cm in length, 3.5 cm in diameter) with an adjacent apparent short segment of colon up to 4.5 cm in length and 4 cm in diameter. The bowel and colon are connected with an apparent [id number] anastomosis with embedded blue sutures and yves. [...] apparent colon margin, en face; D4 = telephone sales representative anastomosis. Jar 2. sxv/12/26/2024 11:34 PA(s): Bernardo Cash MS, PA ([facility])CM CANCER CASE SUMMARY FOR NEUROENDOCRINE TUMORS OF [...] and Flow Cytometry Departments at [facility] as part of an ongoing manufacturing quality inspector program and in compliance with federally mandated [...] and Flow Cytometry Departments of [facility]. It has not been cleared or approved [...] results best viewed via link to PDF [facility] [place] [address] Note to Patients: This report may contain [...] Gender: F : 1960 (Age: 64) Address: [address] [place] [id number] Hospital #: [id number] Taken:12/25/2024 Received:12/25/2024 Reported: 12/26/2024 Patient Type: [facility] Inpatient Service: Surgery Location: [facility] [address] Physician(s): MD David Boswell DO FINAL [...] and Flow Cytometry Departments at [facility] as part of an ongoing manufacturing quality inspector program and in compliance with federally mandated [...] and Flow Cytometry Departments of [facility]. It has not been cleared or approved by the U. S. Food and Drug Administration. Debra Cagle MD LAB CYTOLOGY ORDERABLES Sunitha l Result PATHOLOGY [facility] 3rd Floor [place], [place] [phone] * DC AN PROCEDURE PLACEHOLDER (12/25/2024 9:56 AM CDT) [...] MD ANESTHESIA ORDERABLES Sunitha l Result * DC AN PROCEDURE PLACEHOLDER (12/25/2024 9:55 AM CDT) Leonarda Hernandez CRNA - 12/25/2024 9:55 AM CDT Leonarda Benito CRNA 12/25/2024 9:56 AM Peripheral IV Catheter Patient location: OR Staff: Placed by: OPS MANAGER: Leonarda Benito CRNA Preprocedure prep: Prep solution: chlorhexadine PPE: gloves and provider hat/mask PIV line: Laterality: left Site: wrist Catheter size: 16 g Technique: direct visualization Procedure details: good blood return and occlusive dressing applied Number of attempts: 1 Assessment: Events: patient tolerated procedure well with no complications Te Wilson MD ANESTHESIA ORDERABLES Sunitha l Result * DC AN ELECTIVE ENDOTRACHEAL AIRWAY, DC AN PROCEDURE PLACEHOLDER (12/25/2024 9:53 AM CDT) Leonarda Hernandez CRNA - 12/25/2024 9:53 AM CDT Leonarda Benito CRNA 12/25/2024 9:55 AM Airway Patient location: OR Urgency: elective Date/time: 12/25/2024 9:29 AM Indications for airway management: anesthesia Difficult airway: no Staff: Supervising provider: Te Wilson MD Placed by: OPS MANAGER: Leonarda Benito CRNA Emergent airway documentation: Risks [...] MD LAB BLOOD ORDERABLES Final R esult [facility] Department [place] [address] * (ABNORMAL) Differential, auto (12/25/2024 8:18 AM CDT) Neutrophil abs 6.49 1.50 - 6.50 K/cumm Imm gran abs 0.05 0.00 - 0.10 K/cumm [facility] Lymphocyte abs 0.96 0.80 - 3.30 K/cumm [facility] Monocyte abs 0.88(H) 0.20 - 0.80 K/cumm [facility] Eosinophil abs 0.02 0.00 - 0.50 K/cumm [facility] Basophil abs 0.04 0.00 - 0.10 K/cumm [facility] Neutrophil pct 76.9 % [facility] Comment: Interpretive Data Percent cell count reference ranges are not reported, since discordance with absolute values may lead to misinterpretation of CBC data. Current Interpretive Data was last revised on 2017. Imm gran pct 0.6 % [facility] Comment: Interpretive Data Percent cell count reference ranges are not reported, since discordance with absolute values may lead to misinterpretation of CBC data. Current Interpretive Data was last revised on 2017. Lymphocyte pct 11.4 % [facility] Comment: Interpretive Data Percent cell count reference ranges are not reported, since discordance with absolute values may lead to misinterpretation of CBC data. Current Interpretive Data was last revised on 2017. Monocyte pct 10.4 % [facility] Comment: Interpretive Data Percent cell count reference ranges are not reported, since discordance with absolute values may lead to misinterpretation of CBC data. Current Interpretive Data was last revised on 2017. Eosinophil pct 0.2 % [facility] Comment: Interpretive Data Percent cell count reference ranges are not reported, since discordance with absolute values may lead to misinterpretation of CBC data. Current Interpretive Data was last revised on 2017. Basophil pct 0.5 % [facility] Comment: Interpretive Data Percent cell count reference ranges are not reported, since discordance with absolute values may lead to misinterpretation of CBC data. Current Interpretive Data was last revised on 2017. Blood 12/25/2024 8:18 AM CDT 12/25/2024 8:27 AM CDT Debra Cagle MD LAB BLOOD ORDERABLES Final R esult [facility] Department [place] [address] * (ABNORMAL) CBC with auto differential (12/25/2024 8:18 AM CDT) WBC 8.44 3.80 - 9.90 K/cumm Hgb 12.2 11.9 - 15.5 g/dL [facility] Hct 36.1 35.6 - 45.5 % [facility] Plt 365 150 - 400 K/cumm [facility] MPV 9.6 9.1 - 12.3 fL [facility] RBC 4.38 3.90 - 5.20 M/cumm [facility] MCV 82.4 81.3 - 96.4 fL [facility] MCH 27.9 27.1 - 33.3 pg [facility] MCHC 33.8 32.3 - 35.7 g/dL [facility] RDW CV 17.0(H) 11.1 - 14.9 % [facility] RDW SD 50.4(H) 35.7 - 48.1 fL [facility] NRBC abs 0.00 0.00 - 0.01 K/cumm [facility] Blood 12/25/2024 8:18 AM CDT 12/25/2024 8:27 AM CDT us Debra Cagle MD LAB BLOOD ORDERABLES Final R esult Performing Organization Address [facility] de Phone Number [facility] Division [place] [address] * Protime-INR (12/25/2024 8:18 AM CDT) PT 12.1 9.7 - 13.0 sec INR 1.12 0.90 - 1.20 [facility] Comment: Interpretive data Oral anticoagulant therapeutic ranges: Venous thromboembolism prophylaxis or treatment: 2.0-3.0 CARDIOLOGY Standard range: 2.0-3.0 High-intensity range: 2.5-3.5 Refer to indication-specific guidelines for appropriate target ranges for prosthetic heart valve replacement. Current interpretive data was last revised on 2019. Blood 12/25/2024 8:18 AM CDT 12/25/2024 8:28 AM CDT us Debra Cagle MD LAB BLOOD ORDERABLES Final R esult Performing Organization Address [facility] de Phone Number [facility] Department [place] [address] * (ABNORMAL) Comprehensive metabolic panel (12/25/2024 8:18 AM CDT) Sodium 138 135 - 145 mmol/L Potassium, pl 4.5 3.3 - 4.9 mmol/L [facility] Chloride 104 97 - 110 mmol/L [facility] CO2 24 22 - 32 mmol/L [facility] Anion gap 10 2 - 15 mmol/L [facility] BUN 19 6 - 25 mg/dL [facility] Creatinine 0.38(L) 0.60 - 1.10 mg/dL [facility] Glucose 155 70 - 199 mg/dL [facility] Comment: Interpretive Data Fasting glucose >/= 126 [...] Calcium 8.9 8.5 - 10.3 mg/dL [facility] Bilirubin, total 0.4 0.1 - 1.2 mg/dL [facility] Protein, pl 6.6 6.5 - 8.5 g/dL [facility] Albumin 3.4(L) 3.5 - 5.0 g/dL [facility] Alk phos 99 40 - 130 Units/L [facility] ALT 108(H) 7 - 45 Units/L [facility] AST 72(H) 10 - 45 Units/L [facility] Blood 12/25/2024 8:18 AM CDT 12/25/2024 8:27 AM CDT us Debra Cagle MD LAB BLOOD ORDERABLES Final R esult Performing Organization Address [facility] de Phone Number [facility] Department [place] [address] * TYPE AND SCREEN 14 DAY (12/21/2024 2:31 PM CDT) Myra, indirect Negative ABO Rh A Negative [facility] Blood 12/21/2024 2:31 PM CDT 12/21/2024 2:53 PM CDT Narrative [facility] - 12/21/2024 3:55 PM CDT Has the [...] ORDERA BLES Final Result Performing Organization Address [facility]/ZIP Co de Phone Number [facility] Department [place] [address] * (ABNORMAL) POCT glucose (12/19/2024 8:06 AM CDT) Glucose, POC 219(H) 70 - 199 mg/dL Blood 12/19/2024 8:06 AM CDT 12/19/2024 8:06 AM CDT us Debra Cagle MD LAB POCT ORDERABLES - DEVICE Final Result Performing Organization Address [facility] de Phone Number [facility] [place] [address] * eGFR (12/19/2024 6:14 AM CDT) eGFR [...] ORDERABLES Final R esult Performing Organization Address [facility]/State/[facility] Co de Phone Number [facility] Department [place] [address] * Phosphorus (12/19/2024 6:14 AM CDT) [facility] Phosphorus, pl 3.5 2.3 - 4.5 mg/dL Blood 12/19/2024 6:14 AM CDT 12/19/2024 6:22 AM CDT Estephanie Goldstein MD LAB BLOOD ORDERABLES Fi nal Result Performing Organization Address [facility] Co de Phone Number [facility] [place] [address] * Magnesium (12/19/2024 6:14 AM CDT) [facility] Magnesium 2.2 1.4 - 2.5 mg/dL Blood 12/19/2024 6:14 AM CDT 12/19/2024 6:22 AM CDT Estephanie Goldstein MD LAB BLOOD ORDERABLES Fi nal Result Performing Organization Address [facility] Co de Phone Number [facility] [place] [address] * (ABNORMAL) Basic metabolic panel (12/19/2024 6:14 AM CDT) [facility] Sodium 136 135 - 145 mmol/L Potassium, pl 4.2 3.3 - 4.9 mmol/L [facility] Chloride 104 97 - 110 mmol/L [facility] CO2 26 22 - 32 mmol/L [facility] Anion gap 6 2 - 15 mmol/L [facility] BUN 17 6 - 25 mg/dL [facility] Creatinine 0.39(L) 0.60 - 1.10 mg/dL [facility] Glucose 178 70 - 199 mg/dL [facility] Comment: Interpretive Data Fasting glucose >/= 126 [...] 2022. Calcium 8.2(L) 8.5 - 10.3 mg/dL [facility] Blood 12/19/2024 6:14 AM CDT 12/19/2024 6:22 AM CDT us Debra Cagle MD LAB BLOOD ORDERABLES Final R esult Performing Organization Address [facility] de Phone Number [facility] Department [place] [address] * (ABNORMAL) POCT glucose (12/19/2024 4:05 AM CDT) Glucose, POC 234(H) 70 - 199 mg/dL Blood 12/19/2024 4:05 AM CDT 12/19/2024 4:05 AM CDT us Debra Cagle MD LAB POCT ORDERABLES - DEVICE Final Result Performing Organization Address [facility] de Phone Number [facility] Department [place] [address] * POCT glucose (12/18/2024 11:19 PM CDT) Glucose, POC 114 70 - 199 mg/dL Blood 12/18/2024 11:1 9 PM CDT 12/18/2024 11:19 PM CDT us Debra Cagle MD LAB POCT ORDERABLES - DEVICE Final Result Performing Organization Address [facility] de Phone Number [facility] [place] [address] * POCT glucose (12/18/2024 7:51 PM CDT) Glucose, POC 97 70 - 199 mg/dL Blood 12/18/2024 7:51 PM CDT 12/18/2024 7:51 PM CDT us Debra Cagle MD LAB POCT ORDERABLES - DEVICE Final Result Performing Organization Address City/[facility] [place] [place] [address] * POCT glucose (12/18/2024 4:19 PM CDT) [facility] Signature Glucose, POC 107 70 - 199 mg/dL Blood 12/18/2024 4:19 PM CDT 12/18/2024 4:19 PM CDT us Debra Cagle MD LAB POCT ORDERABLES - DEVICE Final Result Performing Organization Address City/[facility] de Phone Number [facility] [place] [address] * (ABNORMAL) POCT glucose (12/18/2024 11:48 AM CDT) [facility] Glucose, POC 247(H) 70 - 199 mg/dL Blood 12/18/2024 11:4 8 AM CDT 12/18/2024 11:48 AM CDT us Debra Cagle MD LAB POCT ORDERABLES - DEVICE Final Result Performing Organization Address City/[facility] Co de Phone Number [facility] [place] [address] * eGFR (12/18/2024 5:31 AM CDT) eGFR [...] ORDERABLES Final R esult Performing Organization Address City/[facility]/ZIP Co de Phone Number [facility] [place] [address] * Phosphorus (12/18/2024 5:31 AM CDT) Pathologist [facility] Phosphorus, pl 3.0 2.3 - 4.5 mg/dL Blood 12/18/2024 5:31 AM CDT 12/18/2024 5:49 AM CDT Estephanie Goldstein MD LAB BLOOD ORDERABLES Fi nal Result [facility] [place] [address] * Magnesium (12/18/2024 5:31 AM CDT) Magnesium 2.2 1.4 - 2.5 mg/dL Blood 12/18/2024 5:31 AM CDT 12/18/2024 5:49 AM CDT Estephanie Goldstein MD LAB BLOOD ORDERABLES Fi nal Result Performing Organization Address [facility] Co de Phone Number [facility] Department [place] [address] * (ABNORMAL) Basic metabolic panel (12/18/2024 5:31 AM CDT) Pathologist [facility] Sodium 136 135 - 145 mmol/L Potassium, pl 4.4 3.3 - 4.9 mmol/L [facility] Chloride 104 97 - 110 mmol/L [facility] CO2 26 22 - 32 mmol/L [facility] Anion gap 6 2 - 15 mmol/L [facility] BUN 18 6 - 25 mg/dL [facility] Creatinine 0.42(L) 0.60 - 1.10 mg/dL [facility] Glucose 186 70 - 199 mg/dL [facility] Comment: Interpretive Data Fasting glucose >/= 126 [...] 2022. Calcium 8.2(L) 8.5 - 10.3 mg/dL [facility] Blood 12/18/2024 5:31 AM CDT 12/18/2024 5:49 AM CDT us Debra Cagle MD LAB BLOOD ORDERABLES Final R esult Performing Organization Address [facility] Co de Phone Number [facility] Department [place] [address] * Small Bowel Challenge 10 hour Post [...] Misha Augustine M.D., Ph.D us Suzette Hunt DATA ANALYTICS DEVELOPER IMG XR PROCEDURES Final Re sult * POCT glucose (12/17/2024 11:17 PM CDT) Glucose, POC 123 70 - 199 mg/dL Blood 12/17/2024 11:1 7 PM CDT 12/17/2024 11:17 PM CDT us Debra Cagle MD LAB POCT ORDERABLES - DEVICE Final Result [facility] Department [place] [address] * Small Bowel Challenge 4 hour Post [...] Misha Augustine M.D., Ph.D us Suzette Hunt DATA ANALYTICS DEVELOPER IMG XR PROCEDURES Final Re sult * POCT glucose (12/17/2024 5:56 PM CDT) [facility] Glucose, POC 137 70 - 199 mg/dL Blood 12/17/2024 5:56 PM CDT 12/17/2024 5:56 PM CDT us Debra Cagle MD LAB POCT ORDERABLES - DEVICE Final Result [facility] Department [place] [address] * XR Abdomen 1 View [...] POCT ORDERABLES - DEVICE Final Result [facility] Department [place] [address] * POCT glucose (12/17/2024 5:37 AM CDT) Glucose, POC 179 70 - 199 mg/dL Blood 12/17/2024 5:37 AM CDT 12/17/2024 5:37 AM CDT Debra Cagle MD LAB POCT ORDERABLES - DEVICE Final Result Performing Organization Address City/[facility] Co de Phone Number [facility] [place] [address] * eGFR (12/17/2024 5:35 AM CDT) eGFR [...] ORDERABLES Final R esult Performing Organization Address City/[facility]/ZIP Co de Phone Number [facility] [place] [address] * Phosphorus (12/17/2024 5:35 AM CDT) Phosphorus, pl 3.6 2.3 - 4.5 mg/dL Blood 12/17/2024 5:35 AM CDT 12/17/2024 5:55 AM CDT us Estephanie Goldstein MD LAB BLOOD ORDERABLES Fi nal Result Performing Organization Address City/[facility] [facility]/ZIP Co de Phone Number [facility] Department [place] [address] * Magnesium (12/17/2024 5:35 AM CDT) Pathologist [facility] [place] Magnesium 2.3 1.4 - 2.5 mg/dL Blood 12/17/2024 5:35 AM CDT 12/17/2024 5:55 AM CDT Estephanie Goldstein MD LAB BLOOD ORDERABLES Fi nal Result Performing Organization Address [facility] de Phone Number [facility] Department [place] [address] * (ABNORMAL) Basic metabolic panel (12/17/2024 5:35 AM CDT) [facility] Sodium 135 135 - 145 mmol/L Potassium, pl 4.5 3.3 - 4.9 mmol/L [facility] Chloride 103 97 - 110 mmol/L [facility] CO2 25 22 - 32 mmol/L [facility] Anion gap 7 2 - 15 mmol/L [facility] BUN 19 6 - 25 mg/dL [facility] Creatinine 0.40(L) 0.60 - 1.10 mg/dL [facility] Glucose 190 70 - 199 mg/dL [facility] Comment: Interpretive Data Fasting glucose >/= 126 [...] 2022. Calcium 8.1(L) 8.5 - 10.3 mg/dL [facility] Blood 12/17/2024 5:35 AM CDT 12/17/2024 5:55 AM CDT us Debra Cagle MD LAB BLOOD ORDERABLES Final R esult Performing Organization Address City/[facility] Co de Phone Number [facility] [place] [address] * POCT glucose (12/16/2024 11:14 PM CDT) Glucose, POC 112 70 - 199 mg/dL Blood 12/16/2024 11:1 4 PM CDT 12/16/2024 11:14 PM CDT Debra Cagle MD LAB POCT ORDERABLES - DEVICE Final Result Performing Organization Address [facility] Co de Phone Number [facility] [place] [address] * POCT glucose (12/16/2024 5:02 PM CDT) Glucose, POC 125 70 - 199 mg/dL Blood 12/16/2024 5:02 PM CDT 12/16/2024 5:02 PM CDT Debra Cagle MD LAB POCT ORDERABLES - DEVICE Final Result Performing Organization Address [facility] Co de Phone Number [facility] [place] [address] * POCT glucose (12/16/2024 11:12 AM CDT) Glucose, POC 157 70 - 199 mg/dL Blood 12/16/2024 11:1 2 AM CDT 12/16/2024 11:12 AM CDT us Debra Cagle MD LAB POCT ORDERABLES - DEVICE Final Result Performing Organization Address [facility] de Phone Number [facility] [place] [address] * Potassium, whole blood (12/16/2024 9:01 AM CDT) Potassium, bld 4.6 3.3 - 4.9 mmol/L Blood 12/16/2024 9:01 AM CDT 12/16/2024 9:11 AM CDT us Debra Cagle MD LAB BLOOD ORDERABLES Final R esult Performing Organization Address [facility] de Phone Number [facility] [place] [address] * POCT glucose (12/16/2024 5:48 AM CDT) Glucose, POC 128 70 - 199 mg/dL Blood 12/16/2024 5:48 AM CDT 12/16/2024 5:48 AM CDT us Debra Cagle MD LAB POCT ORDERABLES - DEVICE Final Result Performing Organization Address [facility] de Phone Number [facility] [place] [address] * eGFR (12/16/2024 5:44 AM CDT) eGFR [...] ORDERABLES Final R esult Performing Organization Address City/[facility] Co de Phone Number [facility] [place] [address] * Phosphorus (12/16/2024 5:44 AM CDT) Phosphorus, pl 3.8 2.3 - 4.5 mg/dL Blood 12/16/2024 5:44 AM CDT 12/16/2024 6:11 AM CDT Result [facility] Estephanie Goldstein MD LAB BLOOD ORDERABLES Fi nal Result Performing Organization Address [facility] Co de Phone Number [facility] [place] [address] * Magnesium (12/16/2024 5:44 AM CDT) Magnesium 2.4 1.4 - 2.5 mg/dL Blood 12/16/2024 5:44 AM CDT 12/16/2024 6:11 AM CDT Estepahnie Goldstein MD LAB BLOOD ORDERABLES Fi nal Result Performing Organization Address [facility] Co de Phone Number [facility] Department [place] [address] * (ABNORMAL) Basic metabolic panel (12/16/2024 5:44 AM CDT) Sodium 136 135 - 145 mmol/L Potassium, pl 5.2(H) 3.3 - 4.9 mmol/L [facility] Comment:Hemolyzed; Potassium value may be falsely elevated by as much as 0.3-0.5 mmol/L. Suggest redraw and reanalysis. Chloride 104 97 - 110 mmol/L [facility] CO2 27 22 - 32 mmol/L [facility] Anion gap 5 2 - 15 mmol/L [facility] BUN 14 6 - 25 mg/dL [facility] Creatinine 0.42(L) 0.60 - 1.10 mg/dL [facility] Glucose 126 70 - 199 mg/dL [facility] Comment: Interpretive Data Fasting glucose >/= 126 [...] 2022. Calcium 8.5 8.5 - 10.3 mg/dL [facility] Blood 12/16/2024 5:44 AM CDT 12/16/2024 6:11 AM CDT us Debra Cagle MD LAB BLOOD ORDERABLES Final R esult [facility] Department [place] [address] * POCT glucose (12/15/2024 11:17 PM CDT) Glucose, POC 129 70 - 199 mg/dL Blood 12/15/2024 11:1 7 PM CDT 12/15/2024 11:17 PM CDT us Debra Cagle MD LAB POCT ORDERABLES - DEVICE Final Result Performing Organization Address [facility] de Phone Number [facility] [place] [address] * POCT glucose (12/15/2024 5:24 PM CDT) Glucose, POC 136 70 - 199 mg/dL Blood 12/15/2024 5:24 PM CDT 12/15/2024 5:24 PM CDT us Debra Cagle MD LAB POCT ORDERABLES - DEVICE Final Result Performing Organization Address [facility] de Phone Number [facility] [place] [address] * POCT glucose (12/15/2024 12:01 PM CDT) Glucose, POC 142 70 - 199 mg/dL Blood 12/15/2024 12:0 1 PM CDT 12/15/2024 12:01 PM CDT us Debra Cagle MD LAB POCT ORDERABLES - DEVICE Final Result Performing Organization Address [facility] [place] [address] * POCT glucose (12/15/2024 5:30 AM CDT) Glucose, POC 132 70 - 199 mg/dL Blood 12/15/2024 5:30 AM CDT 12/15/2024 5:30 AM CDT us Debra Cagle MD LAB POCT ORDERABLES - DEVICE Final Result Performing Organization Address [facility] Co de Phone Number [facility] Department [place] [address] * eGFR (12/15/2024 5:29 AM CDT) eGFR [...] ORDERABLES Final R esult Performing Organization Address [facility] Co de Phone Number [facility] Department [place] [address] * Phosphorus (12/15/2024 5:29 AM CDT) Phosphorus, pl 3.2 2.3 - 4.5 mg/dL Blood 12/15/2024 5:29 AM CDT 12/15/2024 5:57 AM CDT us Estephanie Goldstein MD LAB BLOOD ORDERABLES Fi nal Result Performing Organization Address [facility] Co de Phone Number [facility] Department [place] [address] * Magnesium (12/15/2024 5:29 AM CDT) [facility] Magnesium 2.2 1.4 - 2.5 mg/dL Blood 12/15/2024 5:29 AM CDT 12/15/2024 5:57 AM CDT Estephanie Goldstein MD LAB BLOOD ORDERABLES Fi nal Result Performing Organization Address [facility] Co de Phone Number [facility] [place] [address] * (ABNORMAL) Basic metabolic panel (12/15/2024 5:29 AM CDT) [facility] Sodium 138 135 - 145 mmol/L Potassium, pl 4.5 3.3 - 4.9 mmol/L [facility] Chloride 104 97 - 110 mmol/L [facility] CO2 29 22 - 32 mmol/L [facility] Anion gap 5 2 - 15 mmol/L [facility] BUN 10 6 - 25 mg/dL [facility] Creatinine 0.46(L) 0.60 - 1.10 mg/dL [facility] Glucose 130 70 - 199 mg/dL [facility] Comment: Interpretive Data Fasting glucose >/= 126 [...] 2022. Calcium 8.4(L) 8.5 - 10.3 mg/dL [facility] Blood 12/15/2024 5:29 AM CDT 12/15/2024 5:57 AM CDT us Debra Cagle MD LAB BLOOD ORDERABLES Final R esult Performing Organization Address [facility] Co de Phone Number [facility] [place] [address] * POCT glucose (12/14/2024 11:26 PM CDT) Glucose, POC 119 70 - 199 mg/dL Blood 12/14/2024 11:2 6 PM CDT 12/14/2024 11:26 PM CDT us Debra Cagle MD LAB POCT ORDERABLES - DEVICE Final Result Performing Organization Address [facility] de Phone Number [facility] [place] [address] * POCT glucose (12/14/2024 5:01 PM CDT) Glucose, POC 127 70 - 199 mg/dL Blood 12/14/2024 5:01 PM CDT 12/14/2024 5:01 PM CDT us Debra Cagle MD LAB POCT ORDERABLES - DEVICE Final Result Performing Organization Address [facility] Co de Phone Number [facility] Department [place] [address] * POCT glucose (12/14/2024 12:51 PM CDT) Glucose, POC 143 70 - 199 mg/dL Blood 12/14/2024 12:5 1 PM CDT 12/14/2024 12:51 PM CDT us Debra Cagle MD LAB POCT ORDERABLES - DEVICE Final Result Performing Organization Address [facility] [place] [address] * (ABNORMAL) Phosphorus (12/14/2024 8:46 AM CDT) Pathologist [facility] [place] Phosphorus, pl 7.5(H) 2.3 - 4.5 mg/dL Comment:Hemolyzed; result ma y be falsely elevated Blood 12/14/2024 8:46 AM CDT 12/14/2024 8:57 AM CDT Suzette Hunt NP LAB BLOOD [place] [address] * (ABNORMAL) Magnesium (12/14/2024 8:46 AM CDT) [facility] Magnesium 3.8(H) 1.4 - 2.5 mg/dL Blood 12/14/2024 8:46 AM CDT 12/14/2024 8:57 AM CDT Suzette Hunt NP LAB BLOOD [place] [address] * POCT glucose (12/14/2024 6:11 AM CDT) [facility] Glucose, POC 150 70 - 199 mg/dL Blood 12/14/2024 6:11 AM CDT 12/14/2024 6:11 AM CDT us Debra Cagle MD LAB POCT ORDERABLES - DEVICE Final Result [facility] [place] [address] * POCT glucose (12/14/2024 12:04 AM CDT) Glucose, POC 138 70 - 199 mg/dL Blood 12/14/2024 12:0 4 AM CDT 12/14/2024 12:04 AM CDT us Debra Cagle MD LAB POCT ORDERABLES - DEVICE Final Result Performing Organization Address City/[facility] Co de Phone Number [facility] [place] [address] * eGFR (12/13/2024 8:24 PM CDT) eGFR [...] BLOOD ORDERABLES Final Result Performing Organization Address City/[facility]/ZIP Co de Phone Number [facility] [place] [address] * Phosphorus (12/13/2024 8:24 PM CDT) [facility] Phosphorus, pl 2.9 2.3 - 4.5 mg/dL Blood 12/13/2024 8:24 PM CDT 12/13/2024 8:59 PM CDT Suzette Hunt DATA ANALYTICS DEVELOPER LAB BLOOD ORDERABLES Final Result Performing Organization Address [facility] de Phone Number [facility] Department [place] [address] * Magnesium (12/13/2024 8:24 PM CDT) [facility] Magnesium 2.4 1.4 - 2.5 mg/dL Blood 12/13/2024 8:24 PM CDT 12/13/2024 8:59 PM CDT Suzette Hunt DATA ANALYTICS DEVELOPER LAB BLOOD ORDERABLES Final Result Performing Organization Address [facility] de Phone Number [facility] [place] [address] * (ABNORMAL) Comprehensive metabolic panel (12/13/2024 8:24 PM CDT) [facility] Sodium 136 135 - 145 mmol/L Potassium, pl 3.7 3.3 - 4.9 mmol/L [facility] Chloride 100 97 - 110 mmol/L [facility] CO2 27 22 - 32 mmol/L [facility] Anion gap 9 2 - 15 mmol/L [facility] BUN 11 6 - 25 mg/dL [facility] Creatinine 0.55(L) 0.60 - 1.10 mg/dL [facility] Glucose 141 70 - 199 mg/dL [facility] Comment: Interpretive Data Fasting glucose >/= 126 [...] Calcium 8.3(L) 8.5 - 10.3 mg/dL [facility] Bilirubin, total 0.5 0.1 - 1.2 mg/dL [facility] Protein, pl 5.6(L) 6.5 - 8.5 g/dL [facility] Albumin 3.3(L) 3.5 - 5.0 g/dL [facility] Alk phos 76 40 - 130 Units/L [facility] ALT 155(H) 7 - 45 Units/L [facility] AST 56(H) 10 - 45 Units/L [facility] Blood 12/13/2024 8:24 PM CDT 12/13/2024 8:59 PM CDT us Suzette Hunt NP LAB BLOOD ORDERABLES Final Result [facility] [place] [address] * POCT glucose (12/13/2024 5:03 PM CDT) Glucose, POC 145 70 - 199 mg/dL Blood 12/13/2024 5:03 PM CDT 12/13/2024 5:03 PM CDT us Debra Cagle MD LAB POCT ORDERABLES - DEVICE Final Result [facility] [place] [address] * POCT glucose (12/13/2024 11:06 AM CDT) Glucose, POC 165 70 - 199 mg/dL Blood 12/13/2024 11:0 6 AM CDT 12/13/2024 11:06 AM CDT us Debra Cagle MD LAB POCT ORDERABLES - DEVICE Final Result Performing Organization Address City/[facility] Co de Phone Number [facility] Department [place] [address] * eGFR (12/13/2024 8:38 AM CDT) eGFR [...] BLOOD ORDERABLES Final Result Performing Organization Address City/[facility]/ZIP Co de Phone Number [facility] Department [place] [address] * Phosphorus (12/13/2024 8:38 AM CDT) Phosphorus, pl 3.2 2.3 - 4.5 mg/dL Blood 12/13/2024 8:38 AM CDT 12/13/2024 9:00 AM CDT Suzette Hunt NP LAB BLOOD ORDERABLES Final Result [facility] Department [place] [address] * Magnesium (12/13/2024 8:38 AM CDT) Pathologist [facility] [place] Magnesium 2.4 1.4 - 2.5 mg/dL Blood 12/13/2024 8:38 AM CDT 12/13/2024 9:00 AM CDT Suzette Hunt NP LAB BLOOD ORDERABLES Final Result Performing Organization Address [facility] de Phone Number [facility] Department [place] [address] * (ABNORMAL) Comprehensive metabolic panel (12/13/2024 8:38 AM CDT) [facility] Sodium 136 135 - 145 mmol/L Potassium, pl 3.9 3.3 - 4.9 mmol/L [facility] Chloride 99 97 - 110 mmol/L [facility] CO2 29 22 - 32 mmol/L [facility] Anion gap 8 2 - 15 mmol/L [facility] BUN 10 6 - 25 mg/dL [facility] Creatinine 0.57(L) 0.60 - 1.10 mg/dL [facility] Glucose 141 70 - 199 mg/dL [facility] Comment: Interpretive Data Fasting glucose >/= 126 [...] 2022. Calcium 8.0(L) 8.5 - 10.3 mg/dL [facility] Bilirubin, total 0.6 0.1 - 1.2 mg/dL [facility] Protein, pl 5.7(L) 6.5 - 8.5 g/dL [facility] Albumin 3.2(L) 3.5 - 5.0 g/dL [facility] Alk phos 80 40 - 130 Units/L [facility] ALT 181(H) 7 - 45 Units/L [facility] AST 75(H) 10 - 45 Units/L [facility] Blood 12/13/2024 8:38 AM CDT 12/13/2024 9:00 AM CDT us Suzette Hunt NP LAB BLOOD ORDERABLES Final Result Performing Organization Address [facility] Co de Phone Number [facility] [place] [address] * POCT glucose (12/13/2024 6:00 AM CDT) Glucose, POC 133 70 - 199 mg/dL Blood 12/13/2024 6:00 AM CDT 12/13/2024 6:00 AM CDT us Debra Cagle MD LAB POCT ORDERABLES - DEVICE Final Result Performing Organization Address [facility] de Phone Number [facility] [place] [address] * POCT glucose (12/13/2024 12:05 AM CDT) Glucose, POC 102 70 - 199 mg/dL Blood 12/13/2024 12:0 5 AM CDT 12/13/2024 12:05 AM CDT us Debra Cagle MD LAB POCT ORDERABLES - DEVICE Final Result Performing Organization Address [facility] Co de Phone Number [facility] Department [place] [address] * eGFR (12/12/2024 10:41 PM CDT) [facility] eGFR >90 >=60 mL/min/1. 73 m2 Comment: [...] Hunt NP LAB BLOOD ORDERABLES Final Result [facility] Department [place] [address] * (ABNORMAL) CBC without differential (12/12/2024 10:41 PM CDT) [facility] WBC 6.74 3.80 - 9.90 K/cumm Hgb 13.8 11.9 - 15.5 g/dL [facility] Hct 40.5 35.6 - 45.5 % [facility] Plt 236 150 - 400 K/cumm [facility] MPV 10.4 9.1 - 12.3 fL [facility] RBC 5.04 3.90 - 5.20 M/cumm [facility] MCV 80.4(L) 81.3 - 96.4 fL [facility] MCH 27.4 27.1 - 33.3 pg [facility] MCHC 34.1 32.3 - 35.7 g/dL [facility] RDW CV 15.3(H) 11.1 - 14.9 % [facility] RDW SD 43.6 35.7 - 48.1 fL [facility] NRBC abs 0.00 0.00 - 0.01 K/cumm [facility] Blood 12/12/2024 10:4 1 PM CDT 12/12/2024 11:15 PM CDT us Suzette Hunt DATA ANALYTICS DEVELOPER LAB BLOOD ORDERABLES Final Result Performing Organization Address City/[facility] Co de Phone Number [facility] [place] [address] * Triglycerides (12/12/2024 10:41 PM CDT) Triglycerides [...] BLOOD ORDERABLES Final Result Performing Organization Address City/[facility]/ZIP Co de Phone Number [facility] [place] [address] * Phosphorus (12/12/2024 10:41 PM CDT) [facility] Phosphorus, pl 3.8 2.3 - 4.5 mg/dL Blood 12/12/2024 10:4 1 PM CDT 12/12/2024 11:13 PM CDT Suzette Hunt DATA ANALYTICS DEVELOPER LAB [place]LO[place] [address] * Magnesium (12/12/2024 10:41 PM CDT) [facility] Magnesium 2.3 1.4 - 2.5 mg/dL Blood 12/12/2024 10:4 1 PM CDT 12/12/2024 11:13 PM CDT Suzette Hunt DATA ANALYTICS DEVELOPER LAB BLOOD ORDERABLES Final Result Performing Organization Address [facility] [place] [address] * (ABNORMAL) Comprehensive metabolic panel (12/12/2024 10:41 PM CDT) [facility] Sodium 138 135 - 145 mmol/L Potassium, pl 3.9 3.3 - 4.9 mmol/L [facility] Comment:Hemolyzed; Potassium value may be falsely elevated by as much as 0.3-0.5 mmol/L. Suggest redraw and reanalysis. Chloride 100 97 - 110 mmol/L [facility] CO2 30 22 - 32 mmol/L [facility] Anion gap 8 2 - 15 mmol/L [facility] BUN 10 6 - 25 mg/dL [facility] Creatinine 0.59(L) 0.60 - 1.10 mg/dL [facility] Glucose 78 70 - 199 mg/dL [facility] Comment: Interpretive Data Fasting glucose >/= 126 [...] Calcium 8.5 8.5 - 10.3 mg/dL [facility] Bilirubin, total 0.7 0.1 - 1.2 mg/dL [facility] Protein, pl 5.5(L) 6.5 - 8.5 g/dL [facility] Albumin 3.2(L) 3.5 - 5.0 g/dL [facility] Alk phos 76 40 - 130 Units/L [facility] ALT 198(H) 7 - 45 Units/L [facility] AST 100(H) 10 - 45 Units/L [facility] Comment:Hemolyzed; result ma y be falsely elevated Blood 12/12/2024 10:4 1 PM CDT 12/12/2024 11:13 PM CDT us Suzette Hunt NP LAB BLOOD ORDERABLES Final Result Performing Organization Address [facility]/ZIP Co de Phone Number [facility] [place] [address] * POCT glucose (12/12/2024 6:20 PM CDT) Glucose, POC 87 70 - 199 mg/dL Blood 12/12/2024 6:20 PM CDT 12/12/2024 6:20 PM CDT us Debra Cagle MD LAB POCT ORDERABLES - DEVICE Final Result Performing Organization Address [facility]/ZIP Co de Phone Number [facility] [place] [address] * eGFR (12/12/2024 3:12 PM CDT) eGFR [...] BLOOD ORDERABLES Final Result Performing Organization Address [facility] Co de Phone Number [facility] [place] [address] * Phosphorus (12/12/2024 3:12 PM CDT) Pathologist [facility] [place] Phosphorus, pl 3.8 2.3 - 4.5 mg/dL Blood 12/12/2024 3:12 PM CDT 12/12/2024 3:38 PM CDT Suzette Hunt NP LAB BLOOD ORDERABLES Final Result Performing Organization Address [facility]/State/[place] [address] * Magnesium (12/12/2024 3:12 PM CDT) Pathologist [facility] [place] Magnesium 2.3 1.4 - 2.5 mg/dL Blood 12/12/2024 3:12 PM CDT 12/12/2024 3:38 PM CDT us Suzette Hunt NP LAB BLOOD ORDERABLES Final Result [facility] [place] [address] * (ABNORMAL) Comprehensive metabolic panel (12/12/2024 3:12 PM CDT) Pathologist [facility] [place] Sodium 138 135 - 145 mmol/L Potassium, pl 3.7 3.3 - 4.9 mmol/L [facility] Chloride 102 97 - 110 mmol/L [facility] CO2 31 22 - 32 mmol/L [facility] Anion gap 5 2 - 15 mmol/L [facility] BUN 9 6 - 25 mg/dL [facility] Creatinine 0.57(L) 0.60 - 1.10 mg/dL [facility] Glucose 84 70 - 199 mg/dL [facility] Comment: Interpretive Data Fasting glucose >/= 126 [...] 2022. Calcium 8.3(L) 8.5 - 10.3 mg/dL [facility] Bilirubin, total 0.8 0.1 - 1.2 mg/dL [facility] Protein, pl 5.4(L) 6.5 - 8.5 g/dL [facility] Albumin 3.1(L) 3.5 - 5.0 g/dL [facility] Alk phos 73 40 - 130 Units/L [facility] ALT 201(H) 7 - 45 Units/L [facility] AST 107(H) 10 - 45 Units/L [facility] Blood 12/12/2024 3:12 PM CDT 12/12/2024 3:38 PM CDT Suzette Hunt NP LAB BLOOD ORDERABLES Final Result Performing Organization Address City/[facility]/ZIP Co de Phone Number [facility] Department [place] [address] * eGFR (12/12/2024 11:00 AM CDT) eGFR [...] BLOOD ORDERABLES Final Result Performing Organization Address City/[facility]/ZIP Co de Phone Number [facility] [place] [address] * (ABNORMAL) Phosphorus (12/12/2024 11:00 AM CDT) [facility] Phosphorus, pl 2.0(L) 2.3 - 4.5 mg/dL Blood 12/12/2024 11:0 0 AM CDT 12/12/2024 11:43 AM CDT Suzette Hunt DATA ANALYTICS DEVELOPER LAB BLOOD ORDERABLES Final Result Performing Organization Address City/[facility] Co de Phone Number [facility] Department [place] [address] * Magnesium (12/12/2024 11:00 AM CDT) [facility] Magnesium 2.3 1.4 - 2.5 mg/dL Blood 12/12/2024 11:0 0 AM CDT 12/12/2024 11:43 AM CDT Suzette Hunt NP LAB BLOOD ORDERABLES Final Result Performing Organization Address [facility] de Phone Number [facility] [place] [address] * (ABNORMAL) Comprehensive metabolic panel (12/12/2024 11:00 AM CDT) [facility] Sodium 136 135 - 145 mmol/L Potassium, pl 3.6 3.3 - 4.9 mmol/L [facility] Chloride 99 97 - 110 mmol/L [facility] CO2 30 22 - 32 mmol/L [facility] Anion gap 7 2 - 15 mmol/L [facility] BUN 10 6 - 25 mg/dL [facility] Creatinine 0.53(L) 0.60 - 1.10 mg/dL [facility] Glucose 125 70 - 199 mg/dL [facility] Comment: Interpretive Data Fasting glucose >/= 126 [...] Calcium 7.8(L) 8.5 - 10.3 mg/dL [facility] Bilirubin, total 0.9 0.1 - 1.2 mg/dL [facility] Protein, pl 5.6(L) 6.5 - 8.5 g/dL [facility] Albumin 3.1(L) 3.5 - 5.0 g/dL [facility] Alk phos 77 40 - 130 Units/L [facility] ALT 211(H) 7 - 45 Units/L [facility] AST 121(H) 10 - 45 Units/L [facility] Blood 12/12/2024 11:0 0 AM CDT 12/12/2024 11:43 AM CDT us Suzette Hunt NP LAB BLOOD ORDERABLES Final Result Performing Organization Address City/[facility]/ZIP Co de Phone Number [facility] [place] [address] * POCT glucose (12/12/2024 10:59 AM CDT) Glucose, POC 121 70 - 199 mg/dL Blood 12/12/2024 10:5 9 AM CDT 12/12/2024 10:59 AM CDT us Debra Cagle MD LAB POCT ORDERABLES - DEVICE Final Result [facility] [place] [address] * (ABNORMAL) Phosphorus (12/12/2024 5:16 AM CDT) Phosphorus, pl 2.2(L) 2.3 - 4.5 mg/dL Blood 12/12/2024 5:16 AM CDT 12/12/2024 5:24 AM CDT us Debra Cagle MD LAB BLOOD ORDERABLES Final R esult Performing Organization Address City/State/[facility] Co de Phone Number [facility] [place] [address] * Magnesium (12/12/2024 5:16 AM CDT) Magnesium 1.8 1.4 - 2.5 mg/dL Blood 12/12/2024 5:16 AM CDT 12/12/2024 5:24 AM CDT us Debra Cagle MD LAB BLOOD ORDERABLES Final R esult Performing Organization Address City/[facility] Co de Phone Number [facility] Department [place] [address] * eGFR (12/12/2024 12:25 AM CDT) eGFR [...] ORDERABLES Final R esult Performing Organization Address [facility] Co de Phone Number [facility] Department [place] [address] * (ABNORMAL) Iron profile w/ IBC (12/12/2024 12:25 AM CDT) Iron 79 35 - 145 mcg/dL TIBC 147(L) 250 - 400 mcg/dL [facility] Transferrin saturation 54(H) 20 - 50 % [facility] Blood 12/12/2024 12:2 5 AM CDT 12/12/2024 12:35 AM CDT us Debra Cagle MD LAB BLOOD ORDERABLES Final R esult Performing Organization Address [facility] Co de Phone Number [facility] Department [place] [address] * (ABNORMAL) Copper, serum (12/12/2024 12:25 AM CDT) Copper 48(L) 77 - 206 mcg/dL [facility] Comment: ADDITIONAL INFORMATION This test was developed and its performance characteristics determined by [facility] in a manner consistent with CLIA requirements. This test has not been cleared or approved by the U.S. Food and Drug Administration. Test Performed by: [facility] - [address] [address] Panelboard Operator: James Donis Ph.D.; CLIA# [id number] Blood 12/12/2024 12:2 5 AM CDT 12/12/2024 12:35 AM CDT us Debra Cagle MD LAB BLOOD ORDERABLES Final R esult Performing Organization Address [facility] Co de Phone Number [place] [address] [facility] * Zinc (12/12/2024 12:25 AM CDT) Zinc 76 60 - 106 mcg/dL [facility] Comment: ADDITIONAL INFORMATION This test was developed and its performance characteristics determined by [facility] in a manner consistent with CLIA requirements. This test has not been cleared or approved by the U.S. Food and Drug Administration. Test Performed by: [facility] [place] [address] Panelboard Operator: James Donis Ph.D.; CLIA# [id number] Blood 12/12/2024 12:2 5 AM CDT 12/12/2024 12:35 AM CDT Debra Cagle MD LAB BLOOD ORDERABLES Final R bereket Performing Organization Address [facility] de Phone Number MAYA Gao [facility] [place] [address] [facility] * (ABNORMAL) Vitamin A (12/12/2024 12:25 AM CDT) Vitamin A 19.7(L) 32.5 - 78.0 mcg/dL [facility] Comment: ADDITIONAL INFORMATION This test was developed and its performance characteristics determined by [facility] in a manner consistent with CLIA requirements. This test has not been cleared or approved by the U.S. Food and Drug Administration. Test Performed by: [facility] [place] [address] Panelboard Operator: James Donis Ph.D.; IA# [id number] Blood 12/12/2024 12:2 5 AM CDT 12/12/2024 12:35 AM CDT Debra Cagle MD LAB BLOOD ORDERABLES Final R esult Performing Organization Address City/[facility]/ZIP Co de Phone Number [facility] [place] [address] [facility] * (ABNORMAL) Vitamin D 25 hydroxy (12/12/2024 12:25 AM CDT) [facility] Vitamin D 25-OH 16(L) 30 - 80 ng/mL Blood 12/12/2024 12:2 5 AM CDT 12/12/2024 12:35 AM CDT Debra Cagle MD LAB BLOOD ORDERABLES Final R esult Performing Organization Address City/[facility]/ZIP Co de Phone Number [facility] [place] [address] * (ABNORMAL) CBC without differential (12/12/2024 12:25 AM CDT) [facility] WBC 6.15 3.80 - 9.90 K/cumm Hgb 13.3 11.9 - 15.5 g/dL [facility] Hct 37.7 35.6 - 45.5 % [facility] Plt 210 150 - 400 K/cumm [facility] MPV 10.1 9.1 - 12.3 fL [facility] RBC 4.76 3.90 - 5.20 M/cumm [facility] MCV 79.2(L) 81.3 - 96.4 fL [facility] MCH 27.9 27.1 - 33.3 pg [facility] MCHC 35.3 32.3 - 35.7 g/dL [facility] RDW CV 14.7 11.1 - 14.9 % [facility] RDW SD 42.5 35.7 - 48.1 fL [facility] NRBC abs 0.00 0.00 - 0.01 K/cumm [facility] Blood 12/12/2024 12:2 5 AM CDT 12/12/2024 12:35 AM CDT Debra Cagle MD LAB BLOOD ORDERABLES Final R esult Performing Organization Address City/[facility] Co de Phone Number [facility] [place] [address] * (ABNORMAL) Vitamin B1 (12/12/2024 12:25 AM CDT) Pathologist [facility] Thiamine (Vit B1) 41(L) 70 - 180 nmol/L [facility] Comment: ADDITIONAL INFORMATION This test was developed and its performance characteristics determined by [facility] in a manner consistent with CLIA requirements. This test has not been cleared or approved by the U.S. Food and Drug Administration. Test Performed by: [facility] [place] [address] Panelboard Operator: James Donis Ph.D.; CLIA# [id number] Blood 12/12/2024 12:2 5 AM CDT 12/12/2024 12:35 AM CDT Debra Cagle MD LAB BLOOD ORDERABLES Final R esult Performing Organization Address City/[facility] Co de Phone Number [facility] [place] [address] [facility] * Phosphorus (12/12/2024 12:25 AM CDT) Pathologist [facility] Phosphorus, pl 2.3 2.3 - 4.5 mg/dL Blood 12/12/2024 12:2 5 AM CDT 12/12/2024 12:35 AM CDT us Debra Cagle MD LAB BLOOD ORDERABLES Final R esult Performing Organization Address [facility] Co de Phone Number [facility] [place] [address] * Magnesium (12/12/2024 12:25 AM CDT) Magnesium 1.8 1.4 - 2.5 mg/dL Blood 12/12/2024 12:2 5 AM CDT 12/12/2024 12:35 AM CDT us Debra Cagle MD LAB BLOOD ORDERABLES Final R esult Performing Organization Address [facility] [place] [address] * Folate (12/12/2024 12:25 AM CDT) Folic acid 13.0 >=5.0 ng/mL Blood 12/12/2024 12:2 5 AM CDT 12/12/2024 12:35 AM CDT us Debra Cagle MD LAB BLOOD ORDERABLES Final R esult Performing Organization Address [facility] de Phone Number [facility] [place] [address] * Vitamin B12 (12/12/2024 12:25 AM CDT) Vitamin B12 907 230 - 1,250 pg/mL Blood 12/12/2024 12:2 5 AM CDT 12/12/2024 12:35 AM CDT us Debra Cagle MD LAB BLOOD ORDERABLES Final R esult Performing Organization Address [facility] Co de Phone Number [facility] [place] [address] * (ABNORMAL) Comprehensive metabolic panel (12/12/2024 12:25 AM CDT) Sodium 136 135 - 145 mmol/L Potassium, pl 3.1(L) 3.3 - 4.9 mmol/L [facility] Chloride 98 97 - 110 mmol/L [facility] CO2 30 22 - 32 mmol/L [facility] Anion gap 8 2 - 15 mmol/L [facility] BUN 15 6 - 25 mg/dL [facility] Creatinine 0.52(L) 0.60 - 1.10 mg/dL [facility] Glucose 153 70 - 199 mg/dL [facility] Comment: Interpretive Data Fasting glucose >/= 126 [...] 2022. Calcium 8.0(L) 8.5 - 10.3 mg/dL [facility] Bilirubin, total 0.8 0.1 - 1.2 mg/dL [facility] Protein, pl 5.3(L) 6.5 - 8.5 g/dL [facility] Albumin 3.0(L) 3.5 - 5.0 g/dL [facility] Alk phos 72 40 - 130 Units/L [facility] ALT 202(H) 7 - 45 Units/L [facility] AST 138(H) 10 - 45 Units/L [facility] Blood 12/12/2024 12:2 5 AM CDT 12/12/2024 12:35 AM CDT us Debra Cagle MD LAB BLOOD ORDERABLES Final R esult [facility] Department [place] [address] * eGFR (12/11/2024 11:52 AM CDT) Pathologist [facility] [place] eGFR >90 >=60 mL/min/1. 73 m2 Comment: [...] MD LAB BLOOD ORDERABLES Final R esult [facility] Department [place] [address] * (ABNORMAL) Differential, auto (12/11/2024 11:52 AM CDT) Pathologist [facility] Neutrophil abs 5.84 1.50 - 6.50 K/cumm Imm gran abs 0.04 0.00 - 0.10 K/cumm [facility] Lymphocyte abs 0.89 0.80 - 3.30 K/cumm [facility] Monocyte abs 0.90(H) 0.20 - 0.80 K/cumm [facility] Eosinophil abs 0.00 0.00 - 0.50 K/cumm [facility] Basophil abs 0.02 0.00 - 0.10 K/cumm [facility] Neutrophil pct 75.9 % [facility] Comment: Interpretive Data Percent cell count reference ranges are not reported, since discordance with absolute values may lead to misinterpretation of CBC data. Current Interpretive Data was last revised on 2017. Imm gran pct 0.5 % [facility] Comment: Interpretive Data Percent cell count reference ranges are not reported, since discordance with absolute values may lead to misinterpretation of CBC data. Current Interpretive Data was last revised on 2017. Lymphocyte pct 11.6 % [facility] Comment: Interpretive Data Percent cell count reference ranges are not reported, since discordance with absolute values may lead to misinterpretation of CBC data. Current Interpretive Data was last revised on 2017. Monocyte pct 11.7 % [facility] Comment: Interpretive Data Percent cell count reference ranges are not reported, since discordance with absolute values may lead to misinterpretation of CBC data. Current Interpretive Data was last revised on 2017. Eosinophil pct 0.0 % [facility] Comment: Interpretive Data Percent cell count reference ranges are not reported, since discordance with absolute values may lead to misinterpretation of CBC data. Current Interpretive Data was last revised on 2017. Basophil pct 0.3 % [facility] Comment: Interpretive Data Percent cell count reference ranges are not reported, since discordance with absolute values may lead to misinterpretation of CBC data. Current Interpretive Data was last revised on 2017. Blood 12/11/2024 11:5 2 AM CDT 12/11/2024 12:09 PM CDT us Debra Cagle MD LAB BLOOD ORDERABLES Final R esult [facility] Department [place] [address] * (ABNORMAL) CBC with auto differential (12/11/2024 11:52 AM CDT) WBC 7.69 3.80 - 9.90 K/cumm Hgb 15.9(H) 11.9 - 15.5 g/dL [facility] Hct 46.2(H) 35.6 - 45.5 % [facility] Plt 294 150 - 400 K/cumm [facility] MPV 9.7 9.1 - 12.3 fL [facility] RBC 5.85(H) 3.90 - 5.20 M/cumm [facility] MCV 79.0(L) 81.3 - 96.4 fL [facility] MCH 27.2 27.1 - 33.3 pg [facility] MCHC 34.4 32.3 - 35.7 g/dL [facility] RDW CV 15.0(H) 11.1 - 14.9 % [facility] RDW SD 42.6 35.7 - 48.1 fL [facility] NRBC abs 0.00 0.00 - 0.01 K/cumm [facility] Blood 12/11/2024 11:5 2 AM CDT 12/11/2024 12:09 PM CDT us Debra Cagle MD LAB BLOOD ORDERABLES Final R esult [facility] Department [place] [address] * (ABNORMAL) Protime-INR (12/11/2024 11:52 AM CDT) PT 13.8(H) 9.7 - 13.0 sec INR 1.27(H) 0.90 - 1.20 [facility] Comment: Interpretive data Oral anticoagulant therapeutic ranges: [...] ORDERABLES Final R esult Performing Organization Address [facility] Co de Phone Number [facility] [place] [address] * Phosphorus (12/11/2024 11:52 AM CDT) [facility] Phosphorus, pl 3.5 2.3 - 4.5 mg/dL Blood 12/11/2024 11:5 2 AM CDT 12/11/2024 12:09 PM CDT Debra Cagle MD LAB BLOOD ORDERABLES Final R esult Performing Organization Address [facility] Co de Phone Number [facility] [place] [address] * Magnesium (12/11/2024 11:52 AM CDT) [facility] Magnesium 2.1 1.4 - 2.5 mg/dL Blood 12/11/2024 11:5 2 AM CDT 12/11/2024 12:09 PM CDT Debra Cagle MD LAB BLOOD ORDERABLES Final R esult Performing Organization Address [facility] Co de Phone Number [facility] [place] [address] * (ABNORMAL) Comprehensive metabolic panel (12/11/2024 11:52 AM CDT) [facility] Sodium 132(L) 135 - 145 mmol/L Potassium, pl 3.9 3.3 - 4.9 mmol/L [facility] Chloride 89(L) 97 - 110 mmol/L [facility] CO2 27 22 - 32 mmol/L [facility] Anion gap 16(H) 2 - 15 mmol/L [facility] BUN 22 6 - 25 mg/dL [facility] Creatinine 0.50(L) 0.60 - 1.10 mg/dL [facility] Glucose 117 70 - 199 mg/dL [facility] Comment: Interpretive Data Fasting glucose >/= 126 [...] 2022. Calcium 9.0 8.5 - 10.3 mg/dL [facility] Bilirubin, total 0.9 0.1 - 1.2 mg/dL [facility] Protein, pl 6.5 6.5 - 8.5 g/dL [facility] Albumin 3.6 3.5 - 5.0 g/dL [facility] Alk phos 88 40 - 130 Units/L [facility] ALT 246(H) 7 - 45 Units/L [facility] AST 172(H) 10 - 45 Units/L [facility] Blood 12/11/2024 11:5 2 AM CDT 12/11/2024 12:09 PM CDT us Debra Cagle MD LAB BLOOD ORDERABLES Final R esult [facility] Department [place] [address] * High Risk HPV DNA Detection with Genotyping (Molecular component) (12/06/2024 1:01 PM CDT) Pathologist [facility] [place] HPV HR 16 Not Detected Not Detected [facility] HPV HR 18 Not Detected Not Detected [facility] HPV HR Non 16/18 Not Detected Not Detected [facility] Comment: Interpretive Data Nucleic acid amplification for [...] this test have been verified by the [facility] Molecular Infectious Disease laboratory. Correlate with separately reported cytology results, as applicable. Interpretive data last revised 22 [facility] 12/06/2024 1:01 PM CDT 12/08/2024 6:39 AM CDT Narrative [facility] - 12/10/2024 9:55 PM CDT Clinical history and diagnosis->screening Number of vials->1 Testing type->Screening Last menstrual period (date if known)->2007 Menstrual status->Postmenopausal Ana Herron MD LAB BODY FLUIDS A ND STOOLS ORDERABLES Final Result [facility] [place] [address] [facility] * Pap and High Risk HPV and Genotyping (Cytology Component) (12/06/2024 1:01 PM CDT) Thin prep (Pap test) 12/06/2024 1:01 PM CDT 12/06/2024 5:36 PM CDT Narrative PATHOLOGY [facility] - 12/14/2024 12:35 PM CDT EPIC results best viewed via link to PDF [facility] Laboratory of Surgical Pathology [place], [place] [id number] Note to Patients: This report may contain [...] Gender: F : 1960 (Age: 64) Address: [address] [place] [id number] Hospital #: [id number] Service: VIDEOTAPE EDITOR Location: Patient Type: [facility] SPECIMEN Taken: 12/06/2024 Received: 12/06/2024 Accessioned: 12/07/2024 [...] have been verified by the [facility] Molecular Infectious Disease laboratory. Correlate with reported cytology results, as applicable. Interpretive data last revised 22 [facility]/12/14/2024 12:35 KATJA Almonte(ASCP) Report Electronically Reviewed and [...] clinical information and biopsy results as indicated. [facility] Clinical Laboratory Improvement Amendments (CLIA) mandate that cytologic and histologic results be correlated for laboratory quality engineer & improvement standards. FOR ALL HIGH-GRADE CASES [...] the Surgical Pathology Department at [facility] as part of an ongoing manufacturing quality inspector program and in compliance with federally mandated [...] the Surgical Pathology Department of [facility]. It has not been cleared or approved by the U. S. Food and Drug Administration. us Ana Herron MD LAB CYTOLOGY PAULO GONZALEZ Final Result PATHOLOGY [facility] 3rd Floor [place], [place] [phone] * (ABNORMAL) Neuron specific enolase (12/05/2024 4:30 PM CDT) Neuron-specific enolase 19(H) <=15 ng/mL [facility] Lab Comment: ADDITIONAL INFORMATION This test was developed and its performance characteristics determined by [facility] in a manner consistent with CLIA requirements. [...] a homogeneous time-resolved immunofluorescent assay manufactured by [employer] and performed on the [employer] KrMachinimaor Compact Plus. Values obtained with different assay methods or kits may be different and cannot be used interchangeably. If ordered as a tumor marker, this test result cannot be interpreted as absolute evidence for the presence or absence of malignant disease. Test Performed by: [place] [address] Panelboard Operator: James Donis Ph.D.; CLIA# [id number] Blood 12/05/2024 4:30 PM CDT 12/05/2024 5:56 PM CDT us Debra Cagle MD LAB BLOOD ORDERABLES Final R esult [facility] Department [place] [address] [facility] * eGFR (12/05/2024 4:30 PM [...] JONES LAB BLOOD ORDERABLES Sunitha nascimento Result MAYA CANO [facility] Department [place] [address] * (ABNORMAL) Chromogranin A (12/05/2024 4:30 PM CDT) Chromogranin A 286(H) <93 ng/mL [facility] Comment: Impaired renal or hepatic function or treatment with proton pump inhibitors may result in artifactual elevations of Chromogranin A. ADDITIONAL INFORMATION The testing method is a homogeneous time-resolved immunofluorescent assay manufactured by [employer] and performed on the [employer] Kryptor Compact Plus. Values obtained with different [...] examination and other findings. Test Performed by: [address] [address] Panelboard Operator: James Donis Ph.D.; [facility]# [id number] Blood 12/05/2024 4:30 PM CDT 12/05/2024 6:17 PM CDT us Debra Cagle MD LAB BLOOD ORDERABLES Final R esult Performing Organization Address [facility] Co de Phone Number [facility] [place] [address] [facility] * aPTT (12/05/2024 4:30 [...] BLOOD ORDERABLES Final Result Performing Organization Address [facility] de Phone Number [facility] [place] [address] * Protime-INR (12/05/2024 4:30 PM CDT) PT 12.4 9.7 - 13.0 sec INR 1.14 0.90 - 1.20 [facility] Comment: Interpretive data Oral anticoagulant therapeutic ranges: [...] BLOOD ORDERABLES Final Result [facility] Department [place] [address] * (ABNORMAL) CBC without differential (12/05/2024 4:30 PM CDT) WBC 7.93 3.80 - 9.90 K/cumm Comment:Testing performed by : [facility], [address] [place] [address] Hgb 16.3(H) 11.9 - 15.5 g/dL [facility] Comment:Testing performed by : [facility], [address] [place] [address] Hct 47.0(H) 35.6 - 45.5 % [facility] Comment:Testing performed by : [facility], [address] [place] [address] Plt 307 150 - 400 K/cumm [facility] Comment:Testing performed by : [facility], [address] [place] [address] MPV 8.1 6.8 - 10.4 fL [facility] Comment:Testing performed by : [facility], [address] [place] [address] RBC 5.92(H) 3.90 - 5.20 M/cumm [facility] Comment:Testing performed by : [facility], [address] [place] [address] MCV 79.4(L) 81.3 - 96.4 fL [facility] Comment:Testing performed by : [facility], [address] [place] [address] MCH 27.5 27.1 - 33.3 pg [facility] Comment:Testing performed by : [facility], [address] [place] [address] MCHC 34.6 32.3 - 35.7 g/dL [facility] Comment:Testing performed by : [facility], [address] [place] [phone] RDW CV 15.6(H) 11.1 - 14.9 % [facility] Comment:Testing performed by : [facility], [address] [place] [phone] Blood 12/05/2024 4:30 PM CDT 12/05/2024 4:44 PM CDT Ilene JONES LAB BLOOD ORDERABLES Sunitha l Result Performing Organization Address [facility] Co de Phone Number [facility] [email or web address] [address] * Type and screen (12/05/2024 4:30 PM CDT) Myra, indirect Negative ABO Rh A Negative [facility] Blood Venous blood specimen / Unknown 12/05/2024 4:30 PM CDT 12/05/2024 5:00 PM CDT Narrative [facility] - 12/05/2024 6:15 PM CDT Has the patient had Daratumumab or Isatuximab in the past 6 months?->Unknown Denisa Robert MD LAB BLOOD BANK TEST ORDERA BLES Final Result Performing Organization Address [facility] Co de Phone Number [facility] [email or web address] [address] * (ABNORMAL) Serotonin serum (12/05/2024 4:30 PM CDT) Serotonin 959(H) <=230 ng/mL [facility] Comment: ADDITIONAL INFORMATION This test was developed and its performance characteristics determined by [facility] in a manner consistent with CLIA requirements. This test has not been cleared or approved by the U.S. Food and Drug Administration. Test Performed by: [facility] [address] [place] [address] Panelboard Operator: James Donis Ph.D.; CLIA# [id number] Blood 12/05/2024 4:30 PM CDT 12/05/2024 8:03 PM CDT us Debra Cagle MD LAB BLOOD ORDERABLES Final R esult [facility] Department [place] [address] [facility] * (ABNORMAL) Prealbumin (12/05/2024 4:30 PM CDT) Pathologist [facility] [place] Prealbumin 13.0(L) 20.0 - 40.0 mg/dL Blood 12/05/2024 4:30 PM CDT 12/05/2024 5:30 PM CDT Denisa Robert MD LAB BLOOD ORDERABLES Final Result [facility] [place] [address] * (ABNORMAL) Comprehensive metabolic panel (12/05/2024 4:30 PM CDT) Sodium 124(L) 135 - 145 mmol/L Potassium, pl 3.8 3.3 - 4.9 mmol/L [facility] Chloride 84(L) 97 - 110 mmol/L [facility] CO2 25 22 - 32 mmol/L [facility] Anion gap 15 2 - 15 mmol/L [facility] BUN 12 6 - 25 mg/dL [facility] Creatinine 0.56(L) 0.60 - 1.10 mg/dL [facility] Glucose 101 70 - 199 mg/dL [facility] Comment: Interpretive Data Fasting glucose >/= 126 [...] 2022. Calcium 9.5 8.5 - 10.3 mg/dL [facility] Bilirubin, total 0.8 0.1 - 1.2 mg/dL [facility] Protein, pl 7.2 6.5 - 8.5 g/dL [facility] Albumin 4.1 3.5 - 5.0 g/dL [facility] Alk phos 103 40 - 130 Units/L [facility] ALT 334(H) 7 - 45 Units/L [facility] AST 232(H) 10 - 45 Units/L [facility] Blood 12/05/2024 4:30 PM CDT 12/05/2024 5:02 PM CDT us Ilene JONES LAB BLOOD ORDERABLES Sunitha nascimento Result [facility] Department [place] [address] * PET/CT Dotatate Skull to Thigh (12/04/2024 [...] -PET/CT IMAGING DATE OF STUDY: 12/04/2024 SCANNER: [facility] RVX (SQ1). This is a high-resolution scanner, which [...] obtained. The study was interpreted on the Swiftpage workstation. The total scanned area was skull [...] -PET/CT IMAGING DATE OF STUDY: 12/04/2024 SCANNER: [facility] RVX (SQ1). This is a high-resolution scanner, which [...] obtained. The study was interpreted on the [employer] workstation. The total scanned area was skull [...] placed in formalin and submitted to the reproduction production manager service for delivery to Surgical Pathology. No tract embolization was performed. The patient's skin was cleaned and dressed. The patient tolerated the entire procedure well without immediate complications. Dr. David Hernandez M.D., the attending radiologist, was present from the beginning to the end of the procedure. Dr. Thor Lorenzo MD performed the biopsy. Dr. Thor Lorenzo MD (residential monitor) was present and participated in the procedure. [...] placed in formalin and submitted to the reproduction production manager service for delivery to Surgical Pathology. No tract embolization was performed. The patient's skin was cleaned and dressed. The patient tolerated the entire procedure well without immediate complications. Dr. David Hernandez M.D., the attending radiologist, was present from the beginning to the end of the procedure. Dr. Thor Lorenzo MD performed the biopsy. Dr. Thor Lorenzo MD (residential monitor) was present and participated in the procedure. [...] it. Electronically signed by: David Hernandez M.D. us Suzette Hunt NP [facility] US PROCEDURES Final Re sult * Surgical pathology (11/16/2024 12:25 PM CDT) Tissue (Omentum, Biopsy) 11/16/2024 12:25 PM CDT Narrative PATHOLOGY [facility] - 11/20/2024 2:30 PM CDT EPIC results best viewed via link to PDF [facility] [place] [address] Note to Patients: This report may contain [...] Gender: F : 1960 (Age: 64) Address: [address] [place], [place] [id number] Hospital #: [id number] Taken:11/16/2024 Received:11/16/2024 Reported: 11/20/2024 Patient Type: [facility] OP In Bed Service: UNKNOWN Location: [facility] IR Physician(s): SENDY Levy DO Diagnosis: A. [...] and Flow Cytometry Departments at [facility] as part of an ongoing manufacturing quality inspector program and in compliance with federally mandated [...] and Flow Cytometry Departments of [facility]. It has not been cleared or approved by the U. S. Food and Drug Administration. IMAGES AND SCANNED DOCUMENTS, IF INCLUDED, ONLY VIEWABLE IN PDF VERSION OF REPORT us Suzette Hunt NP LAB PATHOLOGY ORDERABLES F inal Result PATHOLOGY [facility] 3rd Floor [place], [place] [phone] * Protime-INR (11/06/2024 8:45 AM CDT) PT 12.1 9.7 - 13.0 sec INR 1.12 0.90 - 1.20 [facility] Comment: Interpretive data Oral anticoagulant therapeutic ranges: Venous thromboembolism prophylaxis or treatment: 2.0-3.0 CARDIOLOGY Standard range: 2.0-3.0 High-intensity range: 2.5-3.5 Refer to indication-specific guidelines for appropriate target ranges for prosthetic heart valve replacement. Current interpretive data was last revised on 2019. Blood 11/06/2024 8:45 AM CDT 11/06/2024 9:04 AM CDT us Suzette Hunt NP LAB BLOOD ORDERABLES Final Result [facility] Department [place] [address] * CT Chest W Contrast (11/05/2024 12:21 [...] MD LAB BLOOD ORDERABLES Final R esult [facility] [place] [address] * (ABNORMAL) CBC without differential (11/04/2024 9:53 PM CDT) WBC 8.61 3.80 - 9.90 K/cumm Hgb 14.7 11.9 - 15.5 g/dL [facility] Hct 41.7 35.6 - 45.5 % [facility] Plt 255 150 - 400 K/cumm [facility] MPV 10.4 9.1 - 12.3 fL [facility] RBC 5.35(H) 3.90 - 5.20 M/cumm [facility] MCV 77.9(L) 81.3 - 96.4 fL [facility] MCH 27.5 27.1 - 33.3 pg [facility] MCHC 35.3 32.3 - 35.7 g/dL [facility] RDW CV 13.2 11.1 - 14.9 % [facility] RDW SD 37.5 35.7 - 48.1 fL [facility] NRBC abs 0.00 0.00 - 0.01 K/cumm [facility] Blood 11/04/2024 9:53 PM CDT 11/04/2024 10:01 PM CDT us Debra Cagle MD LAB BLOOD ORDERABLES Final R esult [facility] [place] [address] * Phosphorus (11/04/2024 9:53 PM CDT) [facility] Phosphorus, pl 3.4 2.3 - 4.5 mg/dL Blood 11/04/2024 9:53 PM CDT 11/04/2024 10:01 PM CDT us Debra Cagle MD LAB BLOOD ORDERABLES Final R esult Performing Organization Address [facility] Co de Phone Number [facility] Department [place] [address] * Magnesium (11/04/2024 9:53 PM CDT) [facility] Magnesium 1.8 1.4 - 2.5 mg/dL Blood 11/04/2024 9:53 PM CDT 11/04/2024 10:01 PM CDT Debra Cagle MD LAB BLOOD ORDERABLES Final R esult Performing Organization Address [facility] de Phone Number [facility] [place] [address] * (ABNORMAL) Comprehensive metabolic panel (11/04/2024 9:53 PM CDT) [facility] Sodium 144 135 - 145 mmol/L Potassium, pl 3.4 3.3 - 4.9 mmol/L [facility] Chloride 102 97 - 110 mmol/L [facility] CO2 26 22 - 32 mmol/L [facility] Anion gap 16(H) 2 - 15 mmol/L [facility] BUN 7 6 - 25 mg/dL [facility] Creatinine 0.57(L) 0.60 - 1.10 mg/dL [facility] Glucose 76 70 - 199 mg/dL [facility] Comment: Interpretive Data Fasting glucose >/= 126 [...] Calcium 9.2 8.5 - 10.3 mg/dL [facility] Bilirubin, total 0.6 0.1 - 1.2 mg/dL [facility] Protein, pl 6.8 6.5 - 8.5 g/dL [facility] Comment:Repeated and Verifie d Albumin 4.0 3.5 - 5.0 g/dL [facility] Comment:Repeated and Verifie d Alk phos 60 40 - 130 Units/L [facility] ALT 51(H) 7 - 45 Units/L [facility] AST 50(H) 10 - 45 Units/L [facility] Blood 11/04/2024 9:53 PM CDT 11/04/2024 10:01 PM CDT us Debra Cagle MD LAB BLOOD ORDERABLES Final R esult [facility] Department [place] [address] * Small Bowel Challenge 10 hour Post [...] Check Sample (11/04/2024 9:26 AM CDT) Pathologist [facility] [place] ABO Rh A Negative [facility] OTHER 11/04/2024 9:26 AM CDT 11/04/2024 9:35 AM CDT Debra Cagle MD LAB BLOOD ORDERABLES Final R esult [facility] Department [place] [address] [facility] * Inhibin A and B (11/04/2024 9:26 AM CDT) Pathologist [facility] [place] Inhibin A <5.0 pg/mL [facility] Comment: REFERENCE VALUE <98 (Premenopausal) <5.0 (Postmenopausal) ADDITIONAL INFORMATION This test has been modified from the patient care associate's instructions. Its performance characteristics were determined by [facility] in a manner consistent with CLIA requirements. This test has not been cleared or approved by the U.S. Food and Drug Administration. The testing method is an immunoenzymatic assay manufactured by [employer] and performed on the [employer] DxI 800. Values obtained with different assay [...] is a manual immunoenzymatic assay manufactured by [employer]. Values obtained with different assay methods or kits may be different and cannot be used interchangeably. If this test is being ordered as a tumor marker, results cannot be interpreted as absolute evidence for the presence or absence of malignant disease. This test was developed and its performance characteristics determined by [facility] in a manner consistent with CLIA requirements. This test has not been cleared or approved by the U.S. Food and Drug Administration. Test Performed by: [place] [id number] Panelboard Operator: James Donis Ph.D.; CLIA# [id number] Blood 11/04/2024 9:26 AM CDT 11/04/2024 10:07 AM CDT Patsy Young MD LAB BLOOD ORDERABLES Final Result [facility] Department [place] [address] [facility] * Cancer antigen 19-9 (11/04/2024 [...] BLOOD ORDERABLES Final Result Performing Organization Address [facility] Co de Phone Number [facility] Department [place] [address] * [id number], Tumor Marker (11/04/2024 9:26 AM CDT) alpha [...] 2018;[id number] Rocío Driscoll et al. Clin Chem 2014;[id number]. Current interpretive data was last revised 2022. Blood 11/04/2024 9:26 AM CDT 11/04/2024 9:37 AM CDT Patsy Young MD LAB BLOOD ORDERABLES Final Result Performing Organization Address City/[facility] Co de Phone Number [facility] Department [place] [address] * CA 125 (11/04/2024 9:26 AM CDT) [facility] CA 125 ag 19.9 0.0 - 38.1 units/mL Comment: Interpretive Data [employer] CA 125 assay procedure was used. Results from different manufacturers or methods may not be comparable. Serial testing should be performed using the same method. Blood 11/04/2024 9:26 AM CDT 11/04/2024 9:37 AM CDT Patsy Young MD LAB BLOOD ORDERABLES Final Result Performing Organization Address [facility] Co de Phone Number [facility] [place] [address] * hCG, blood, quantitative (11/04/2024 9:26 AM CDT) [facility] hCG, quant <5.0 0.0 - 5.0 IUnits/L [...] MD LAB BLOOD [place] [address] * Lactate dehydrogenase (LD) (11/04/2024 9:26 AM CDT) [facility] Lactate dehydrogenase (LDH) 149 100 - 250 Units/L Blood 11/04/2024 9:26 AM CDT 11/04/2024 9:37 AM CDT Patsy Young MD LAB BLOOD ORDERABLES Final Result Performing Organization Address [facility] de Phone Number [facility] [place] [address] * CEA (11/04/2024 9:26 AM CDT) CEA [...] BLOOD ORDERABLES Final Result Performing Organization Address [facility] Co de Phone Number [facility] [place] [address] * POCT glucose (11/03/2024 8:53 PM CDT) Glucose, POC 194 70 - 199 mg/dL Blood 11/03/2024 8:53 PM CDT 11/03/2024 8:53 PM CDT Debra Cagle MD LAB POCT ORDERABLES - DEVICE Final Result Performing Organization Address [facility] Co de Phone Number [facility] [place] [address] * Lactate (11/03/2024 7:33 PM CDT) Lactate 1.8 0.7 - 2.0 mmol/L Blood 11/03/2024 7:33 PM CDT 11/03/2024 7:38 PM CDT Debra Cagle MD LAB BLOOD ORDERABLES Final R esult Performing Organization Address City/[facility]/ZIP Co de Phone Number [facility] [place] [address] * eGFR (11/03/2024 7:33 PM CDT) eGFR [...] ORDERABLES Final R esult Performing Organization Address City/[facility]/ZIP Co de Phone Number [facility] [place] [address] * Protime-INR (11/03/2024 7:33 PM CDT) PT 12.1 9.7 - 13.0 sec INR 1.12 0.90 - 1.20 [facility] Comment: Interpretive data Oral anticoagulant therapeutic ranges: Venous thromboembolism prophylaxis or treatment: 2.0-3.0 CARDIOLOGY Standard range: 2.0-3.0 High-intensity range: 2.5-3.5 Refer to indication-specific guidelines for appropriate target ranges for prosthetic heart valve replacement. Current interpretive data was last revised on 2019. Blood 11/03/2024 7:33 PM CDT 11/03/2024 7:35 PM CDT us Debra Cagle MD LAB BLOOD ORDERABLES Final R esult Performing Organization Address City/[facility]/ZIP Co de Phone Number [facility] Department [place] [address] * (ABNORMAL) CBC without differential (11/03/2024 7:33 PM CDT) Pathologist [facility] [place] WBC 7.34 3.80 - 9.90 K/cumm Hgb 12.5 11.9 - 15.5 g/dL [facility] Hct 36.5 35.6 - 45.5 % [facility] Plt 209 150 - 400 K/cumm [facility] MPV 10.8 9.1 - 12.3 fL [facility] RBC 4.57 3.90 - 5.20 M/cumm [facility] MCV 79.9(L) 81.3 - 96.4 fL [facility] MCH 27.4 27.1 - 33.3 pg [facility] MCHC 34.2 32.3 - 35.7 g/dL [facility] RDW CV 13.5 11.1 - 14.9 % [facility] RDW SD 38.6 35.7 - 48.1 fL [facility] NRBC abs 0.00 0.00 - 0.01 K/cumm [facility] Blood 11/03/2024 7:33 PM CDT 11/03/2024 7:37 PM CDT Debra Cagle MD LAB BLOOD ORDERABLES Final R esult [facility] Department [place] [address] * Type and screen (11/03/2024 7:33 PM CDT) ABO Rh A Negative Myra, indirect Negative [facility] Blood 11/03/2024 7:33 PM CDT 11/03/2024 7:56 PM CDT Narrative [facility] - 11/03/2024 8:52 PM CDT Has the patient had Daratumumab or Isatuximab in the past 6 months?->Unknown Debra Cagle MD LAB BLOOD BANK TEST ORDERABL ES Final Result Performing Organization Address [facility] de Phone Number [facility] [place] [address] * (ABNORMAL) Prealbumin (11/03/2024 7:33 PM CDT) Prealbumin 19.0(L) 20.0 - 40.0 mg/dL Blood 11/03/2024 7:33 PM CDT 11/03/2024 7:38 PM CDT Debra Cagle MD LAB BLOOD ORDERABLES Final R esult Performing Organization Address [facility] de Phone Number [facility] Department [place] [address] * (ABNORMAL) Phosphorus (11/03/2024 7:33 PM CDT) Phosphorus, pl 1.9(L) 2.3 - 4.5 mg/dL Blood 11/03/2024 7:33 PM CDT 11/03/2024 7:37 PM CDT Debra Cagle MD LAB BLOOD ORDERABLES Final R esult Performing Organization Address [facility] Co de Phone Number [facility] Department [place] [address] * (ABNORMAL) Magnesium (11/03/2024 7:33 PM CDT) Pathologist [facility] [place] Magnesium 1.0(L) 1.4 - 2.5 mg/dL Blood 11/03/2024 7:33 PM CDT 11/03/2024 7:37 PM CDT us Debra Cagle MD LAB BLOOD ORDERABLES Final R esult Performing Organization Address City/[facility] Co de Phone Number [facility] Department [place] [address] * (ABNORMAL) Comprehensive metabolic panel (11/03/2024 7:33 PM CDT) [facility] Sodium 139 135 - 145 mmol/L Potassium, pl 3.6 3.3 - 4.9 mmol/L [facility] Chloride 105 97 - 110 mmol/L [facility] CO2 17(L) 22 - 32 mmol/L [facility] Anion gap 17(H) 2 - 15 mmol/L [facility] BUN 6 6 - 25 mg/dL [facility] Creatinine 0.36(L) 0.60 - 1.10 mg/dL [facility] Glucose 58(L) 70 - 199 mg/dL [facility] Comment: Interpretive Data Fasting glucose >/= 126 [...] 2022. Calcium 7.6(L) 8.5 - 10.3 mg/dL [facility] Bilirubin, total 0.3 0.1 - 1.2 mg/dL [facility] Protein, pl 4.2(L) 6.5 - 8.5 g/dL [facility] Albumin 2.5(L) 3.5 - 5.0 g/dL [facility] Alk phos 35(L) 40 - 130 Units/L [facility] ALT 31 7 - 45 Units/L [facility] AST 34 10 - 45 Units/L [facility] Blood 11/03/2024 7:33 PM CDT 11/03/2024 7:37 PM CDT us Debra Cagle MD LAB BLOOD ORDERABLES Final R esult [facility] [place] [address] * CT Body Outside Consult (11/03/2024 6:28 [...] images may or may not represent the [place] source data set and thus may contain changes that may lower the accuracy of this second-opinion interpretation. Electronically signed by: Brigida Pagan M.D. Narrative 11/03/2024 9:17 PM CDT EXAMINATION: RADIOLOGY CONSULTATION ON OUTSIDE IMAGING STUDY STUDY INITIALLY PERFORMED: 11/02/2024 at [facility]. TYPE OF STUDY: Multiple CT images of [...] IMAGING STUDY STUDY INITIALLY PERFORMED: 11/02/2024 at [facility]. TYPE OF STUDY: Multiple CT images of [...] images may or may not represent the [place] source data set and thus may contain changes that may lower the accuracy of this second-opinion interpretation. Electronically signed by: Brigida Pagan M.D. us Gracie Newberry MD IMG CT PROCEDURES Final Re sult from Last 3 Months Insurance [place] Advance Directives For more information, please contact: [phone] Documents on File Type Date Recorded Patient Logistics Clerk Expl anation ADVANCE DIRECTIVE 12/25/2024 8:48 AM Power of Director Public-Financial/Medical * Full Code (Latest Code Status on File) Date Activated Date Inactivated Comments 12/25/2024 5:01 PM 01/02/2025 3:32 PM * Full Code Date Activated Date Inactivated Comments 12/11/2024 10:52 AM 12/19/2024 3:11 PM * Full Code Date Activated Date Inactivated Comments 11/16/2024 10:42 AM 11/17/2024 4:32 AM * Full Code Date Activated Date Inactivated Comments 11/03/2024 4:09 PM 11/06/2024 5:31 PM Care Teams Industrial Sales Representative Relationship Specialty Start Date End Date David Marmolejo DO PCP - General Internal Medicine 01/15/21 Debra Cagle MD [phone] [place] [address] PCP - Home Infusion Attending General Surgery 12/19/24 Melanie Pandya [facility] Pharmacist Pharmacy 12/18/24
--- OUTSIDE RECORDS SUMMARY | 2025-01-17 20:33 | XMS_ITS | Encounter Summary ---
Author Organization [facility] happin! of [facility] Address [address] [place] [address] Phone Care Team Providers Care Teacher Resource Name Role Phone David Marmolejo DO Primary Care Provider [phone] Melanie Pandya [facility] Unavailable Unavailable Debra Cagle MD Unavailable [phone] Encounter Details Date Type Department Care Team (Late st Contact Info) Description 06/10/2021 Orders Only [facility] Scanning, Provider Social History Tobacco Use Types Packs/Day Years Used Date Smoking Tobacco: Never Assessed Comments Unknown Sex and Gender Information Value Date Recorded Sex Assigned at Not on file 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
[2025-01-17] MEDS: KCL 20 MEQ/SW 100 ML 100 ML 50 MEQ IVPB (21:00)
[2025-01-17] MEDS: METOPROLOL SUCCINATE EXT REL 25 MG TABCR PO (22:09)
[2025-01-17] MEDS: SODIUM BICARBONATE 8.4% 50 MEQ/50 ML SYRINGE IV PUSH (23:43)
[2025-01-18] VITALS (20 sets, daily range): BP systolic 111–150; BP diastolic 68–99; PULSE 79–176; RESP 16–18; TEMP 36.4–37; O2SAT 99–100; BMI 19.0
--- NOTE | 2025-01-18 00:09 | ADMGEN ---
This patient, Katharine Gloria, was admitted to IMU Room 211-01 at 2355. Patient/family oriented to hospital policies and general routines including ID bracelet, bed and alarms, visiting hours, pain management, procedures, bathroom and other care routines, personal items, smoking policy, room service/diet, and visiting hours. Information on how to activate the Rapid Response Team has been discussed. Patient/Family are encouraged to report perceived risks to care and to ask questions if they do not understand what they are told or what they should do.
[2025-01-18 00:10] LABS: Magnesium 1.8 mg/dL (1.6-2.3)
[2025-01-18 00:23] LABS: Troponin I < 0.012 ng/mL (0.000-0.034)
[2025-01-18 05:32] LABS: Troponin I < 0.012 ng/mL (0.000-0.034)
--- NOTE | 2025-01-18 06:42 | P.HP_ITS ---
H&P: HPI History of Present Illness Date/Time: 01/18/25 06:42 Chief Complaint: Elevated heart rate all day Narrative: 64-year-old female with a past medical history of recent diagnosis of GERD, hiatal hernia metastatic neuroendocrine tumor status post partial small-bowel and large-bowel resection, essential hypertension, and protein calorie malnutrition due to recent illness on TPN who presented to the ER due to fast heart rate all day. The patient provide majority history with assistance for review of past medical records. The patient presented to the hospital in October 05 to partial small-bowel obstruction CT also demonstrated findings concerning for carcinoid tumor whether primary in the peritoneum or from the small bowel extending to peritoneum. She was transferred to [place] on 11/03/2024 and discharged on 11/06/2024. She was brought back for biopsy of omental lesion on 11/18/2024 with pathology consistent with metastatic well-differentiated neuroendocrine tumor. She had an outpatient PET scan 12/04/2024 which demonstrated widely metastatic with multiple masses in the liver, multiple mesenteric and omental masses, increased right hydronephrosis and dilated fluid filled small bowel with transition point in the right lower quadrant at the site of metastases. She continued to have abdominal pain and poor p.o. intake. She underwent small-bowel resection with partial large bowel resection on December 25 2024 at [place]. She had 100 cm of small bowel resected. She was started on TPN nightly to help with nutritional status. She reports that she has gained 2 lb since her recent visit. She reports she has been having abdominal symptoms for about 4 years with increasing frequency of abdominal pain cramping and developing nausea vomiting. She reports that she still has some nausea and some abdominal pain postoperatively. She has not been having any vomiting. She has been having up to 20 frankly watery stools a day. She denies any recent fevers or chills. She reports that she has been having intermittent palpitations and episodes of tachycardia on and off for years. However today she became more concerned when her heart rate was elevated from 4 PM onwards. She went to a friend's house and used her friend's pulse oximeter which demonstrated her heart rate was quite elevated. She came into the ER and was found to have heart rate ranging between 190-200. She reports having prior unremarkable Holter monitor in July. And she had a normal echocardiogram August 2024. She denies any flushing, chest pain, lower extremity swelling, orthopnea or paroxysmal nocturnal dyspnea. In the ER she received 1 dose of adenosine, 20 mEq of potassium chloride, 1 amp of sodium bicarb and 1 dose of metoprolol succinate 25 mg and 2 L of IV fluids with resolution of SVT. Review of Systems 2 Review of Systems: 12 systems were reviewed with pertinent positives and negatives per HPI. Except as documented in the HPI, all other systems were reviewed and are negative. 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 She lives alone. She denies any history of heavy alcohol use. She used to smoke 1 pack of cigarettes per day for about 10-15 years but quit smoking in 1991. She denies illicit substance use. 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 She raised 3 sons. Code status: Full code Surrogate decision maker: Jeffery (oldest son) Smoking packs per day: 1 Smoking cigarettes per day: 20.0 Years smoked: 15 Smoking pack-years: 15.00 Smoking status: Former smoker Tobacco type: cigarettes Smoking end date: 06/06/90 Alcohol intake: never Substance use: never Substance use type: does not use Lack of Transportation: No Lack of Food: Never True Current Housing: I Have Housing Concerned About Future Housing: No Difficulty Paying Gas/Electric Bills: No Difficulty Paying for Meds: No Currently Unemployed: No Education: High School Diploma/GED Difficulty w/ Childcare or Family Care: No Living arrangements: with family Gender identity (if verbalized by the patient): Female Spiritual care concerns: No Comments She reports that she has a brother and sister there are still living but she does not know their medical history is she is not close to them. Meds Home Medications and Allergies Home Medications ?Medication ?Instructions ?Recorded ?Confirmed ?Type loratadine 10 mg tablet (Claritin) 10 mg PO DAILY #90 tabs 05/04/24 01/18/25 Rx fluticasone propionate 50 2 spray intranasal DAILY #15.8 mL 09/06/24 01/18/25 Rx mcg/actuation nasal spray,suspension enoxaparin 40 mg/0.4 mL 40 mg subcut DAILY 01/18/25 01/18/25 History subcutaneous syringe ondansetron 4 mg disintegrating 4 mg PO Q6-8H PRN nausea and 01/18/25 01/18/25 History tablet vomiting sumatriptan succinate 25 mg tablet See Rx Instructions PO .COMPLEX 01/18/25 01/18/25 History (Imitrex) PRN migraine headache Allergies Allergy/AdvReac Type Severity Reaction Status Date / Time No Known Allergies Allergy Unknown Verified 01/18/25 00:25 Vital Signs Vital Signs - 24 hr 01/17/25 19:29 01/17/25 19:35 01/17/25 19:45 Temperature Pulse Rate 192 H 188 H 180 H Respiratory Rate 16 24 H Blood Pressure 146/95 H Pulse Oximetry 100 99 Oxygen Delivery Room Air 01/17/25 19:50 01/17/25 19:54 01/17/25 19:55 Temperature Pulse Rate 130 H 118 H 118 H Respiratory Rate 15 13 13 Blood Pressure 134/81 134/81 141/82 H Pulse Oximetry 100 100 100 Oxygen Delivery 01/17/25 20:30 01/17/25 21:00 01/17/25 21:00 Temperature Pulse Rate 112 H 116 H 115 H Respiratory Rate 14 14 14 Blood Pressure 133/83 133/83 128/83 Pulse Oximetry 99 99 99 Oxygen Delivery 01/17/25 21:30 01/17/25 22:00 01/17/25 22:09 Temperature Pulse Rate 108 H 104 H 106 H Respiratory Rate 13 16 Blood Pressure 129/110 H 137/90 Pulse Oximetry 100 100 Oxygen Delivery 01/17/25 22:30 01/17/25 23:00 01/18/25 00:00 Temperature Pulse Rate 99 90 Respiratory Rate 15 14 Blood Pressure 142/86 H 132/87 Pulse Oximetry 100 99 Oxygen Delivery Room Air 01/18/25 00:26 01/18/25 02:00 01/18/25 04:00 Temperature 98.2 F Pulse Rate 87 84 90 Respiratory Rate 16 Blood Pressure 150/99 H Pulse Oximetry 100 Oxygen Delivery 01/18/25 04:00 01/18/25 05:29 01/18/25 06:00 Temperature 98.1 F Pulse Rate 89 86 Respiratory Rate 16 Blood Pressure 131/82 Pulse Oximetry 100 Oxygen Delivery Room Air Exam 2 Narrative: Weight 53.4 kg BMI 19 Const: Other: Thin body habitus, no acute distress, appears stated age HENMT: Other: Mucous membranes are moist, no oral pharyngeal erythema, head is normocephalic atraumatic Eyes: Other: Pupils are equal and reactive, no conjunctival pallor, no scleral icterus Neck: Other: No JVD, no lymphadenopathy Resp: Other: Clear to auscultation bilaterally, no increased work of breathing Cardio: Other: Regular rate, regular rhythm, 2+ bilateral radial pedal pulses, no murmur, no JVD GI: Other: Mildly tender to palpation, normoactive bowel sounds, nondistended Skin: Other: No jaundice, no pallor Neuro: Other: Alert oriented x4, speech is clear, no facial asymmetry, Cranial nerves 2-12 grossly intact, normal gait, no gross motor deficits noted during examination Extrem: Other: 4/5 recreational therapist strength bilateral, no clubbing , cyanosis or edema Psych: Other: Appropriate mood and affect, pleasant and cooperative, judgment and insight intact H&P: Results Labs Labs: Laboratory Tests 01/17/25 19:51 01/17/25 19:51 01/17/25 01/17/25 01/18/25 19:51 23:52 01:17 WBC 14.2 H RBC 4.67 Hgb 12.8 D Hct 40.2 MCV 86.1 MCH 27.4 MCHC 31.8 L RDW 16.4 H Plt Count 468 H MPV 10.6 H Immature Gran % (Auto) 0.6 H Neut % (Auto) 68.1 Lymph % (Auto) 15.8 L Potter % (Auto) 10.5 H Eos % (Auto) 4.1 Baso % (Auto) 0.9 Lymph # (Auto) 2.25 Potter # (Auto) 1.5 H Eos # (Auto) 0.6 H Baso # (Auto) 0.1 Abs Immat Gran (auto) 0.08 H Absolute Neuts (auto) 9.7 H Absolute Nucleated RBC 0.000 Nucleated RBC % 0.0 PT 13.1 INR 1.0 APTT 27.1 Sodium 137 Potassium 3.3 L Chloride 105 Carbon Dioxide 18 L Anion Gap 14 H BUN 13 Creatinine 0.43 L Estim Creat Clear Calc 85 Estimated GFR > 60 Glucose 135 H Calcium 10.2 Phosphorus 4.6 H Magnesium 1.8 Total Bilirubin 0.6 AST 103 H ALT 123 H Alkaline Phosphatase 152 H Troponin I < 0.012 < 0.012 < 0.012 Total Protein 7.8 Albumin 4.1 Lipase 363 H Nasal MRSA (PCR) 01/18/25 05:40 WBC RBC Hgb Hct MCV MCH MCHC RDW Plt Count MPV Immature Gran % (Auto) Neut % (Auto) Lymph % (Auto) Potter % (Auto) Eos % (Auto) Baso % (Auto) Lymph # (Auto) Potter # (Auto) Eos # (Auto) Baso # (Auto) Abs Immat Gran (auto) Absolute Neuts (auto) Absolute Nucleated RBC Nucleated RBC % PT INR APTT Sodium Potassium Chloride Carbon Dioxide Anion Gap BUN Creatinine Estim Creat Clear Calc Estimated GFR Glucose Calcium Phosphorus Magnesium Total Bilirubin AST ALT Alkaline Phosphatase Troponin I Total Protein Albumin Lipase Nasal MRSA (PCR) Not detected Impressions Chest X-Ray 01/17/25 20:11 IMPRESSION: No acute cardiopulmonary process. ADDENDUM: 01/18/25 0633 Left subclavian PICC line tip in the SVC. Chest CTA 01/17/25 20:37 IMPRESSION: No CT evidence of acute pulmonary embolus. No acute process detected in the chest. Stable mild left pelviectasis/caliectasis. EKG:Test Date: 2025-01-17 19:27:34 Measurements Intervals [place] Rate: 198 P: 0 MA: 0 QRS: -7 QRSD: 75 T: 63 QT: 216 QTc: 392 Interpretive Statements SUPRAVENTRICULAR TACHYCARDIA, CONSIDER ATRIAL FLUTTER POSSIBLE RIGHT VENTRICULAR CONDUCTION DELAY DELAYED PRECORDIAL R/S TRANSITION BASELINE WANDER- V1-V3 ABNORMAL ECG Compared to ECG 08/01/2024 16:34:29 Sinus rhythm no longer present All imaging and EKGs personally reviewed and interpreted. And unless stated otherwise agree with radiologic and cardiology interpretation. 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 Primary cardiac causes less likely. Patient had recent echocardiogram demonstrating normal structure and function no need to repeat echocardiogram. Will start patient on metoprolol 25 mg p.o. b.i.d.. Will repeat a CBC, CMP and magnesium level in a.m.. Patient did receive potassium and magnesium supplements in the ER. Will aim for potassium closer to 4 and magnesium of 2 given patient's recurrent SVT to help stabilize cardiac rhythm in the setting of neuroendocrine tumor. The patient has not started chemotherapy yet for her neuroendocrine tumor. She reports that she was post started on octreotide next week. She has been to follow[facility]up with [facility]. Will continue supportive care nutritional supplementation with TPN. Dietary consult for TPN management. Patient's PICC line is in appropriate position and good to use. MEDICAL DECISION MAKING NARRATIVE -Spoke with the ED provider in detail regarding patient's evaluation, workup and management -Patient seen and examined at bedside -Collaborated with patient's nurse at the bedside in detail and addressed all concerns -Labs, electrolytes, radiology, investigations and test results reviewed -ED/Consult/Nursing/Ancilliary notes on the chart reviewed and appreciated -Spoke with patient at bedside and all questions answered. Patient is okay with current plan and management. Quality VTE Prophylaxis VTE prophylaxis: pharmacologic ordered (Lovenox 40 mg subQ daily.) Hospitalist [facility] Advance Care Plan I have confirmed that the patient's Advanced Care Plan is present, code status is documented, or surrogate decision maker is listed in patient medical record.: Yes Medication Reconciliation I have utilized all available resources to obtain, update and review the patients current medications (includes all prescriptions, OTC, herbals, cannabis, and nutritional supplements).: Yes
[2025-01-18 06:59] LABS: MRSA (PCR) NOT DETECTED (NOT DETECTE)
[2025-01-18 07:36] LABS: Hematocrit 32.5 % (37.0-47.0); Hemoglobin 10.1 g/dL (12.0-15.0); Immature Granulocyte Percent A 0.5 % (0-0.5); Lymphocytes Absolute Auto 1.13 K/mm3 (0.9-3.2); Mean Corpuscular HGB Conc 31.1 g/dl (32-36); Mean Corpuscular Hemoglobin 27.6 pg (26-34); Mean Corpuscular Volume 88.8 fl (80-100); Nucleated Red Blood Cells Absolute Auto 0.000 K/mm3 (0.0-0.012); Nucleated Red Blood Cells Perc 0.0 % (0.0-0.2); Platelet Count Result 285 k/mm3 (150-375); Red Blood Count 3.66 M/mm3 (4.2-5.4); White Blood Count 7.4 K/mm3 (4.5-10.0)
[2025-01-18 07:47] LABS: Partial Thromboplastin Time 22.6 Seconds (22.3-36.8)
[2025-01-18 07:56] LABS: Alanine Aminotransferase 104 U/L (6-35); Albumin Level 3.1 g/dL (3.5-5.1); Alkaline Phosphatase 116 U/L (38-126); Anion Gap 6 mmol/L (4-12); Aspartate Amino Transferase 90 U/L (14-36); Bilirubin,Total 0.5 mg/dL (0.2-1.3); Blood Urea Nitrogen 9 mg/dL (7-17); Calcium 9.4 mg/dL (8.4-10.2); Carbon Dioxide 25 mmol/L (22-30); Chloride 106 mmol/L (98-107); Estimated CRCL calculation 106 ml/min; Estimated Glomerular Filt Rate > 60; Glucose 98 mg/dL (65-110); Magnesium 1.8 mg/dL (1.6-2.3); Potassium 3.6 mmol/L (3.4-5.0); Sodium 137 mmol/L (137-145); Total Protein 6.0 g/dL (6.3-8.2)
[2025-01-18 08:09] LABS: Transferrin 240 mg/dL (206-381)
--- NOTE | 2025-01-18 08:26 | P.PNIM_ITS ---
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: Code(s): C7A.8 - Other malignant neuroendocrine tumors; C7B.8 - Other secondary neuroendocrine tumors Status: Acute (2) Neuroendocrine carcinoma metastatic to liver: Code(s): C7A.8 - Other malignant neuroendocrine tumors; C7B.8 - Other secondary neuroendocrine tumors Status: Acute (3) SVT (supraventricular tachycardia): Code(s): I47.10 - Supraventricular tachycardia, unspecified Status: Acute (4) Essential hypertension: Code(s): I10 - Essential (primary) hypertension Status: Acute Plan 64-year-old female with a past medical history of recent diagnosis of GERD, hiatal hernia metastatic neuroendocrine tumor status post partial small-bowel and large-bowel resection, essential hypertension, and protein calorie malnutrition due to recent illness on TPN who presented to the ER due to fast heart rate all day. The patient provide majority history with assistance for review of past medical records. The patient presented to the hospital in October 05 to partial small-bowel obstruction CT also demonstrated findings concerning for carcinoid tumor whether primary in the peritoneum or from the small bowel extending to peritoneum. She was transferred to [facility] on 11/03/2024 and discharged on 11/06/2024. She was brought back for biopsy of omental lesion on 11/18/2024 with pathology consistent with metastatic well-differentiated neuroendocrine tumor. She had an outpatient PET scan 12/04/2024 which demonstrated widely metastatic with multiple masses in the liver, multiple mesenteric and omental masses, increased right hydronephrosis and dilated fluid filled small bowel with transition point in the right lower quadrant at the site of metastases. She continued to have abdominal pain and poor p.o. intake. She underwent small-bowel resection with partial large bowel resection on December 25 2024 at [facility]. She had 100 cm of small bowel resected. She was started on TPN nightly to help with nutritional status. She reports that she has gained 2 lb since her recent visit. She reports she has been having abdominal symptoms for about 4 years with increasing frequency of abdominal pain cramping and developing nausea vomiting. She reports that she still has some nausea and some abdominal pain postoperatively. She has not been having any vomiting. She has been having up to 20 frankly watery stools a day. She denies any recent fevers or chills. She reports that she has been having intermittent palpitations and episodes of tachycardia on and off for years. However today she became more concerned when her heart rate was elevated from 4 PM onwards. She went to a friend's house and used her friend's pulse oximeter which demonstrated her heart rate was quite elevated. She came into the ER and was found to have heart rate ranging between 190-200. She reports having prior unremarkable Holter monitor in July. And she had a normal echocardiogram August 2024. She denies any flushing, chest pain, lower extremity swelling, orthopnea or paroxysmal nocturnal dyspnea. In the ER she received 1 dose of adenosine, 20 mEq of potassium chloride, 1 amp of sodium bicarb and 1 dose of metoprolol succinate 25 mg and 2 L of IV fluids with resolution of SVT. SVT as noted in the ED. artery 190-200. Normal echocardiogram August of 2024. In the ED CVA adenosine 1 dose and metoprolol. SVT resolved. Will consult Cardiology. Continue on beta-melissa as ordered. Troponin x3 is negative. CTA chest with no PE or any acute process. Stable mild left pelvie ctasis/caliectasis Recently diagnosed metastatic neuroendocrine tumor plan to start treatment soon. Biopsy of the omental lesion on 11/18/2024 with pathology consistent with metastatic well takes differentiated neuroendocrine tumor. Outpatient PET scan 12/04/2024 demonstrated widely might metastatic with multiple masses in the liver multiple mesenteric and omental masses increased right hydronephrosis and dilated fluid-filled small bowel with transition point in the right lower quadrant at the site of metastasis Recent bowel obstruction status post partial small-bowel and large-bowel resecti on Protein calorie mild nutrition on TPN nightly Essential hypertension Hiatal hernia GERD DVT prophylaxis Lovenox Code status full code Subjective Date/time seen: 01/18/25 08:26 Interval history: No overnight events. No new complaints. Denies any abdominal pain nausea vomiting. Review of Systems Review of Systems: All systems reviewed & are unremarkable except as noted in HPI and below Exam Narrative: GENERAL: [Well-appearing, well-nourished, and in no acute distress.] HEAD: [Normocephalic, atraumatic.] EYES: [PERRLA and EOMI.] ENT: Nares clear, no rhinorrhea or epistaxis. Mucous membranes moist. NECK: Supple. CHEST: [Clear to auscultation. No respiratory distress.] HEART: Regular rate, regular rhythm. No murmur heard. [Normal peripheral pulses.] ABDOMEN: [Soft, nondistended], [nontender], [No rigidity or guarding] EXTREMITIES: Normal range of motion. [No edema.] Left-sided PICC line in place SKIN: Warm, dry, no rash. NEURO: [No focal deficits]. Alert and oriented [x3.] PSYCH: [Normal mood and affect.] Objective Data Vital Signs Vital Signs: Vital Signs - 24 hr 01/17/25 19:29 01/17/25 19:35 01/17/25 19:45 Temperature Pulse Rate 192 H 188 H 180 H Respiratory Rate 16 24 H Blood Pressure 146/95 H Pulse Oximetry 100 99 Oxygen Delivery Room Air 01/17/25 19:50 01/17/25 19:54 01/17/25 19:55 Temperature Pulse Rate 130 H 118 H 118 H Respiratory Rate 15 13 13 Blood Pressure 134/81 134/81 141/82 H Pulse Oximetry 100 100 100 Oxygen Delivery 01/17/25 20:30 01/17/25 21:00 01/17/25 21:00 Temperature Pulse Rate 112 H 116 H 115 H Respiratory Rate 14 14 14 Blood Pressure 133/83 133/83 128/83 Pulse Oximetry 99 99 99 Oxygen Delivery 01/17/25 21:30 01/17/25 22:00 01/17/25 22:09 Temperature Pulse Rate 108 H 104 H 106 H Respiratory Rate 13 16 Blood Pressure 129/110 H 137/90 Pulse Oximetry 100 100 Oxygen Delivery 01/17/25 22:30 01/17/25 23:00 01/18/25 00:00 Temperature Pulse Rate 99 90 Respiratory Rate 15 14 Blood Pressure 142/86 H 132/87 Pulse Oximetry 100 99 Oxygen Delivery Room Air 01/18/25 00:26 01/18/25 02:00 01/18/25 04:00 Temperature 98.2 F Pulse Rate 87 84 90 Respiratory Rate 16 Blood Pressure 150/99 H Pulse Oximetry 100 Oxygen Delivery 01/18/25 04:00 01/18/25 05:29 01/18/25 06:00 Temperature 98.1 F Pulse Rate 89 86 Respiratory Rate 16 Blood Pressure 131/82 Pulse Oximetry 100 Oxygen Delivery Room Air 01/18/25 08:00 Temperature 97.6 F Pulse Rate 86 Respiratory Rate 18 Blood Pressure 130/77 Pulse Oximetry 100 Oxygen Delivery Intake/Output Intake/Output: Intake & Output 01/15/25 01/16/25 01/17/25 01/18/25 23:59 23:59 23:59 23:59 Intake Total 2100 440 Balance 2100 440 Meds/Results Medications: Active Medications Generic Name Dose Route Start Last Admin Trade Name Freq PRN Reason Stop Dose Admin Acetaminophen 650 mg 01/17/25 22:23 Acetaminophen 325 Mg Tablet PO Q4H PRN Mild Pain (1-3) or Fever Enoxaparin Sodium 40 mg 01/18/25 09:00 Enoxaparin 40 Mg/0.4 Ml Syringe SUB-Q DAILY [facility] Fluticasone Propionate 2 spray 01/18/25 09:00 Fluticasone Propionate 0.05% Na Spr 16 Gm Btl (*Bkc) NASAL DAILY [facility] Dextrose 1,000 mls @ 50 mls/hr 01/18/25 07:00 Dextrose 10% IV CONT .Q20H PRN if PN is interrupted Multivitamins 1.25 ml/ 1,002.5 mls @ 40 mls/hr 01/18/25 09:00 Multivitamins 1.25 ml/ Amino IV CONT Acids/Electrolytes/Dextrose .Q24H [facility] Protocol Loratadine 10 mg 01/18/25 09:00 Loratadine 10 Mg Tablet PO DAILY [facility] Metoprolol Tartrate 25 mg 01/18/25 09:00 Metoprolol Tartrate 25 Mg Tablet PO Q12HR [facility] Ondansetron HCl 4 mg 01/17/25 22:23 Ondansetron Inj 4 Mg/2 Ml Vial IV PUSH Q4H PRN Nausea Sodium Chloride 10 ml 01/18/25 14:00 Central Line Flush IV PUSH Q8HR KATT Sodium Chloride 10 ml 01/18/25 07:03 Central Line Flush IV PUSH PRN PRN with TPN bag changes Sodium Chloride 20 ml 01/18/25 07:03 Central Line Flush IV PUSH PRN PRN after blood draws Radiology Results: ITS Impressions Chest X-Ray 01/17/25 20:11 IMPRESSION: No acute cardiopulmonary process. ADDENDUM: 01/18/25 0633 Left subclavian PICC line tip in the SVC. Chest CTA 01/17/25 20:37 IMPRESSION: No CT evidence of acute pulmonary embolus. No acute process detected in the chest. Stable mild left pelviectasis/caliectasis. Labs Labs: Laboratory Results - last 24 hr 01/17/25 01/17/25 01/18/25 19:51 23:52 01:17 WBC 14.2 H RBC 4.67 Hgb 12.8 D Hct 40.2 MCV 86.1 MCH 27.4 MCHC 31.8 L RDW 16.4 H Plt Count 468 H MPV 10.6 H Immature Gran % (Auto) 0.6 H Neut % (Auto) 68.1 Lymph % (Auto) 15.8 L [place] % (Auto) 10.5 H Eos % (Auto) 4.1 Baso % (Auto) 0.9 Lymph # (Auto) 2.25 [place] # (Auto) 1.5 H Eos # (Auto) 0.6 H Baso # (Auto) 0.1 Abs Immat Gran (auto) 0.08 H Absolute Neuts (auto) 9.7 H Absolute Nucleated RBC 0.000 Nucleated RBC % 0.0 PT 13.1 INR 1.0 APTT 27.1 Sodium 137 Potassium 3.3 L Chloride 105 Carbon Dioxide 18 L Anion Gap 14 H BUN 13 Creatinine 0.43 L Estim Creat Clear Calc 85 Estimated GFR > 60 Glucose 135 H Calcium 10.2 Phosphorus 4.6 H Magnesium 1.8 Transferrin Total Bilirubin 0.6 AST 103 H ALT 123 H Alkaline Phosphatase 152 H Troponin I < 0.012 < 0.012 < 0.012 Total Protein 7.8 Albumin 4.1 Lipase 363 H Nasal MRSA (PCR) 01/18/25 01/18/25 05:40 07:16 WBC 7.4 RBC 3.66 L Hgb 10.1 L Hct 32.5 L MCV 88.8 MCH 27.6 MCHC 31.1 L RDW 16.5 H Plt Count 285 MPV 10.4 Immature Gran % (Auto) 0.5 Neut % (Auto) 65.8 Lymph % (Auto) 15.2 L [place] % (Auto) 11.3 H Eos % (Auto) 6.1 H Baso % (Auto) 1.1 Lymph # (Auto) 1.13 [place] # (Auto) 0.8 H Eos # (Auto) 0.5 H Baso # (Auto) 0.1 Abs Immat Gran (auto) 0.04 H Absolute Neuts (auto) 4.9 Absolute Nucleated RBC 0.000 Nucleated RBC % 0.0 PT INR APTT 22.6 Sodium 137 Potassium 3.6 Chloride 106 Carbon Dioxide 25 Anion Gap 6 BUN 9 Creatinine 0.36 L Estim Creat Clear Calc 106 Estimated GFR > 60 Glucose 98 Calcium 9.4 Phosphorus Magnesium 1.8 Transferrin 240 Total Bilirubin 0.5 AST 90 H ALT 104 H Alkaline Phosphatase 116 Troponin I Total Protein 6.0 L Albumin 3.1 L Lipase Nasal MRSA (PCR) Not detected
[2025-01-18] MEDS: LORATADINE 10 MG TABLET PO (09:01)
[2025-01-18] MEDS: FLUTICASONE PROPIONATE 0.05% NA SPR 16 GM BTL (*BKC) 2 SPRAY NASAL (09:01)
[2025-01-18] MEDS: METOPROLOL TARTRATE 25 MG TABLET PO ×2 (09:01→17:23)
[2025-01-18] MEDS: ENOXAPARIN 40 MG/0.4 ML SYRINGE SUB-Q (09:02)
[2025-01-18] MEDS: AMINO ACIDS 5%/D15W/E-LYTES/CA 1,000 ML with MULTIVITAMINS-12 INJ VIAL 1 1.25 ML, MULTI... 40 ML IV CONT (09:08)
[2025-01-18] MEDS: POTASSIUM CHLORIDE 20 MEQ PACKET (FOR LIQUID) 40 MEQ PO (09:43)
--- NOTE | 2025-01-18 10:01 | P.CONCA_ITS ---
Assessment and Plan Assessment and plan (1) PSVT (paroxysmal supraventricular tachycardia): Code(s): I47.10 - Supraventricular tachycardia, unspecified Status: Acute Assessment and Plan: Start Metoprolol Tartate 25 mg BID. If she has breakthrough with this then consider ablation. May d/c home from cardiology standpoint and f/u with me in 2 weeks. (2) Essential hypertension: Code(s): I10 - Essential (primary) hypertension Status: Acute Assessment and Plan: Stable. History of Present Illness History of Present Illness Consult date/time: 01/18/25 10:01 Reason For Visit: New onset SVT, history of neuroendocrine tumor Narrative: 64 yr old woman who is my regular cardiology patient and a patient of Sabrina Lazaro presents to ER for fast HR. She has a history of hypertension, dyslipidemia. In ER she was in SVT and given Adenosine and restored sinus rhythm. Currently she has no chest pain or sob or dizziness. Had palpitations in Jul 2024 and saw on watch was HR at 150-190 bpm lasted minutes. She does not drink much water but drinks ice tea about a pitcher. She can walk a mile. Denies chest pain, sob, orthopnea, PND, edema, dizziness. Cardiovascular Procedures Echo/MUGA:: 08/06/24 Echo: EF 65-70%, trace TR. Electrophysiology:: 08/01/24 EKG: Sinus rhythm, BRWP, borderline ST-T wave abnormality. 08/02/24 7 days event monitor: Sinus rhythm, HR range 53-154 bpm; average 73 bpm; 53 PAC, 33 PVC. Review of Systems 2 Review of Systems: All systems reviewed & are unremarkable except as noted in HPI and below Constitutional: Constitutional: Reports as per HPI, Denies chills, Reports fatigue and Denies fever(s) Cardiovascular: Cardiovascular: Reports as per HPI, Denies chest pain and Reports rapid heart rate Respiratory: Respiratory: Reports as per HPI and Reports dyspnea Gastrointestinal: Gastrointestinal: Reports as per HPI and Denies abdominal pain Genitourinary: Genitourinary: Reports as per HPI and Denies dysuria Musculoskeletal: Musculoskeletal: Reports as per HPI Neurologic: Reports as per HPI, Denies dizziness and Denies syncope [facility] Past Medical History Medical History (Updated 01/18/25 @ 10:04 by Raman Moon DO) Dyslipidemia Hypertriglyceridemia Hiatal hernia Gastritis GERD without esophagitis Vitamin D deficiency Neuroendocrine carcinoma 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 She lives alone. She denies any history of heavy alcohol use. She used to smoke 1 pack of cigarettes per day for about 10-15 years but quit smoking in 1991. She denies illicit substance use. 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 She raised 3 sons. Code status: Full code Surrogate decision maker: Jeffery (oldest son) Smoking packs per day: 1 Smoking cigarettes per day: 20.0 Years smoked: 15 Smoking pack-years: 15.00 Smoking status: Former smoker Tobacco type: cigarettes Smoking end date: 06/06/90 Alcohol intake: never Substance use: never Substance use type: does not use Lack of Transportation: No Lack of Food: Never True Current Housing: I Have Housing Concerned About Future Housing: No Difficulty Paying Gas/Electric Bills: No Difficulty Paying for Meds: No Currently Unemployed: No Education: High School Diploma/GED Difficulty w/ Childcare or Family Care: No Living arrangements: with family Gender identity (if verbalized by the patient): Female Spiritual care concerns: No Meds Home Medications and Allergies Home Medications ?Medication ?Instructions ?Recorded ?Confirmed ?Type loratadine 10 mg tablet (Claritin) 10 mg PO DAILY #90 tabs 05/04/24 01/18/25 Rx fluticasone propionate 50 2 spray intranasal DAILY #15.8 mL 09/06/24 01/18/25 Rx mcg/actuation nasal spray,suspension enoxaparin 40 mg/0.4 mL 40 mg subcut DAILY 01/18/25 01/18/25 History subcutaneous syringe ondansetron 4 mg disintegrating 4 mg PO Q6-8H PRN nausea and 01/18/25 01/18/25 History tablet vomiting sumatriptan succinate 25 mg tablet See Rx Instructions PO .COMPLEX 01/18/25 01/18/25 History (Imitrex) PRN migraine headache Allergies Allergy/AdvReac Type Severity Reaction Status Date / Time No Known Allergies Allergy Unknown Verified 01/18/25 00:25 Vital Signs Vital Signs - 24 hr 01/17/25 19:29 01/17/25 19:35 01/17/25 19:45 Temperature Pulse Rate 192 H 188 H 180 H Respiratory Rate 16 24 H Blood Pressure 146/95 H Pulse Oximetry 100 99 Oxygen Delivery Room Air 01/17/25 19:50 01/17/25 19:54 01/17/25 19:55 Temperature Pulse Rate 130 H 118 H 118 H Respiratory Rate 15 13 13 Blood Pressure 134/81 134/81 141/82 H Pulse Oximetry 100 100 100 Oxygen Delivery 01/17/25 20:30 01/17/25 21:00 01/17/25 21:00 Temperature Pulse Rate 112 H 116 H 115 H Respiratory Rate 14 14 14 Blood Pressure 133/83 133/83 128/83 Pulse Oximetry 99 99 99 Oxygen Delivery 01/17/25 21:30 01/17/25 22:00 01/17/25 22:09 Temperature Pulse Rate 108 H 104 H 106 H Respiratory Rate 13 16 Blood Pressure 129/110 H 137/90 Pulse Oximetry 100 100 Oxygen Delivery 01/17/25 22:30 01/17/25 23:00 01/18/25 00:00 Temperature Pulse Rate 99 90 Respiratory Rate 15 14 Blood Pressure 142/86 H 132/87 Pulse Oximetry 100 99 Oxygen Delivery Room Air 01/18/25 00:26 01/18/25 02:00 01/18/25 04:00 Temperature 98.2 F Pulse Rate 87 84 90 Respiratory Rate 16 Blood Pressure 150/99 H Pulse Oximetry 100 Oxygen Delivery 01/18/25 04:00 01/18/25 05:29 01/18/25 06:00 Temperature 98.1 F Pulse Rate 89 86 Respiratory Rate 16 Blood Pressure 131/82 Pulse Oximetry 100 Oxygen Delivery Room Air 01/18/25 08:00 01/18/25 09:01 Temperature 97.6 F Pulse Rate 86 96 Respiratory Rate 18 Blood Pressure 130/77 Pulse Oximetry 100 Oxygen Delivery Exam 2 Const: General: cooperative, healthy appearing and comfortable Resp: Auscultation: clear to auscultation bilaterally, no crackles, no rales, no rhonchi and no wheezes Cardio: Rate: regular rate Rhythm: regular rhythm Heart sounds: no murmurs Peripheral pulses: dorsalis pedis present GI: GI Palp: No abdominal tenderness and Yes Soft to palpation Neuro: General: oriented to person, oriented to place and oriented to time Extrem: Right lower extremity: no edema Left lower extremity: no edema Results Labs and Meds 01/18/25 07:16 01/18/25 07:16 Lab results: Cardiac Enzymes 01/17/25 01/17/25 01/18/25 Range/Units 19:51 23:52 01:17 AST 103 H (14-36) U/L Troponin I < 0.012 < 0.012 < 0.012 (0.000-0.034) ng/mL 01/18/25 Range/Units 07:16 AST 90 H (14-36) U/L Troponin I (0.000-0.034) ng/mL Coagulation 01/17/25 01/18/25 Range/Units 19:51 07:16 PT 13.1 (11.1-14.7) Seconds APTT 27.1 22.6 (22.3-36.8) Seconds CBC 01/17/25 01/18/25 Range/Units 19:51 07:16 WBC 14.2 H 7.4 (4.5-10.0) K/mm3 RBC 4.67 3.66 L (4.2-5.4) M/mm3 Hgb 12.8 D 10.1 L (12.0-15.0) g/dL Hct 40.2 32.5 L (37.0-47.0) % Plt Count 468 H 285 (150-375) k/mm3 Lymph # (Auto) 2.25 1.13 (0.9-3.2) K/mm3 [place] # (Auto) 1.5 H 0.8 H (0.1-0.6) K/mm3 Eos # (Auto) 0.6 H 0.5 H (0-0.3) K/mm3 Baso # (Auto) 0.1 0.1 (0.0-0.1) K/mm3 Comprehensive Metabolic Panel 01/17/25 01/18/25 Range/Units 19:51 07:16 Sodium 137 137 (137-145) mmol/L Potassium 3.3 L 3.6 (3.4-5.0) mmol/L Chloride 105 106 (98-107) mmol/L Carbon Dioxide 18 L 25 (22-30) mmol/L BUN 13 9 (7-17) mg/dL Creatinine 0.43 L 0.36 L (0.7-1.0) mg/dL Glucose 135 H 98 (65-110) mg/dL Calcium 10.2 9.4 (8.4-10.2) mg/dL AST 103 H 90 H (14-36) U/L ALT 123 H 104 H (6-35) U/L Alkaline Phosphatase 152 H 116 (38-126) U/L Total Protein 7.8 6.0 L (6.3-8.2) g/dL Albumin 4.1 3.1 L (3.5-5.1) g/dL Intake and Output 01/17/25 01/18/25 01/18/25 23:59 07:59 15:59 Intake Total 2100 440 0 Balance 2100 440 0 Intake: IV 2100 Lactated Ringers 1,000 ml @ 999 2000 mls/hr IV CONT .Q1H1M STA Rx#: [id number] KCl 20 Meq/Sw 100 ml 100 ml @ 100 50 mls/hr IVPB ONCE STA Rx#: [id number] Oral 440 0 Other: # Unmeasured Voids 1 Patient Weight 01/18/25 23:59 Weight 53.4 kg
[2025-01-18] MEDS: ONDANSETRON INJ 4 MG/2 ML VIAL IV PUSH ×2 (10:32→14:53)
[2025-01-18] MEDS: CENTRAL LINE FLUSH 10 ML IV PUSH ×2 (14:53→20:33)
--- OUTSIDE RECORDS SUMMARY | 2025-01-18 17:16 | XMS_ITS ---
Author Organization [facility] Address [address] [place] [address] Care Team Providers Care Invoice Machine Operator Name Role Phone David Marmolejo DO Primary Care Provider [phone] Melanie Pandya [facility] Unavailable Unavailable Debra Cagle MD Unavailable [phone] Active Problems Problem Noted Date Diagnosed Date [...]
--- OUTSIDE RECORDS SUMMARY | 2025-01-18 17:16 | XMS_ITS | Encounter Summary ---
Author Organization [facility] Address [address] [place] [address] Phone Care Team Providers Care Deployment Engineer Name Role Phone Provider, Unknown Primary Care Provider Unavaila ble Encounter Details Date Type Department Care Team (Late st Contact Info) Description 01/07/2025 Lab Requisition [facility] Laboratory Services [address] [place] [address] Debra Cagle MD 1 [place] [address] Malignant neoplasm of liver, not specified as [...] [facility] [address] [place] [address] Iona Vanessa RN [place] 01/28/2025 1:00 AM CDT [facility] [address] [place] [address] Iona Vanessa RN [place] 02/04/2025 1:00 AM CDT [facility] [address] [place] [address] Iona Vanessa RN [place] 02/11/2025 1:00 AM CDT Appointment [facility] [address] [place] [address] Iona Vanessa RN [place] documented as of this encounter Procedures Procedure [...] 12.00 10(3)/mcL 01/07/2025 3:08 PM CDT [facility] RBC 3.56(L) 3.80 - 5.30 10(6)/mcL 01/07/2025 3:08 PM CDT [facility] HEMOGLOBIN (HGB) 10.0(L) 12.0 - 15.8 g/dL 01/07/2025 3:08 PM CDT [facility] HEMATOCRIT (HCT) 30.9(L) 36.0 - 47.0 % 01/07/2025 3:08 PM CDT [facility] MCV 86.8 82.0 - 96.0 fL 01/07/2025 3:08 PM CDT [facility] MCH 28.1 26.0 - 34.0 pg 01/07/2025 3:08 PM CDT [facility] MCHC 32.4 31.0 - 36.0 g/dL 01/07/2025 3:08 PM CDT [facility] PLATELET COUNT 610(H) 140 - 440 10(3)/mcL 01/07/2025 3:08 PM CDT [facility] RDW 17.3(H) 11.8 - 15.5 % 01/07/2025 3:08 PM CDT [facility] MPV 9.7 9.7 - 12.4 fL 01/07/2025 3:08 PM CDT [facility] NEUTROPHILS 73.6(H) 47.0 - 73.0 % 01/07/2025 3:08 PM CDT [facility] LYMPHOCYTES 12.4(L) 18.0 - 42.0 % 01/07/2025 3:08 PM CDT [facility] MONOCYTES 8.7 4.0 - 12.0 % 01/07/2025 3:08 PM CDT [facility] EOSINOPHILS 3.5 0.0 - 5.0 % 01/07/2025 3:08 PM CDT [facility] BASOPHILS 1.1(H) 0.0 - 1.0 % 01/07/2025 3:08 PM CDT [facility] IMMATURE GRANULOCYTE 0.7(H) 0.0 - 0.4 % 01/07/2025 3:08 PM CDT [facility] Comment:Immature Granulocyte s includes Metamyelocytes, Myelocytes, and Promyelocytes. ABSOLUTE NEUTROPHILS 7.24 1.60 - 7.70 10(3)/mcL 01/07/2025 3:08 PM CDT [facility] ABSOLUTE LYMPHOCYTES 1.22(L) 1.30 - 3.20 10(3)/mcL 01/07/2025 3:08 PM CDT [facility] ABSOLUTE MONOCYTES 0.86 0.20 - 1.00 10(3)/mcL 01/07/2025 3:08 PM CDT [facility] ABSOLUTE EOSINOPHIL 0.34 0.00 - 0.40 10(3)/mcL 01/07/2025 3:08 PM CDT [facility] ABSOLUTE BASOPHILS 0.11(H) 0.00 - 0.10 10(3)/mcL 01/07/2025 3:08 PM CDT [facility] ABSOLUTE IMMATURE GRANULOCYTE 0.07(H) 0.00 - 0.03 10 (3) mcL. 01/07/2025 3:08 PM CDT [facility] NRBC PER 100 WBC 0 01/08/20 3:08 PM CDT [facility] Blood No Phlebotomy Charged / Unknown 01/07/2025 2:15 PM CDT 01/07/2025 3:05 PM CDT us Debra Cagle MD HEMATOLOGY ORDERABLES Final Result Performing Organization Address City/[facility]/ZIP Co de Phone Number [facility] [place] [address] * MAGNESIUM (MG) (01/07/2025 2:15 PM CDT) MAGNESIUM 1.8 1.6 - 2.6 mg/dL 01/07/2025 3:28 PM CDT [facility] Blood No Phlebotomy Charged / Unknown 01/07/2025 2:15 PM CDT 01/07/2025 3:05 PM CDT Debra Cagle MD CHEMISTRY ORDERABLES Final R esult [facility] [place] [address] * PHOSPHORUS (PO4) (01/07/2025 2:15 PM CDT) PHOSPHORUS 4.2 2.5 - 4.5 mg/dL 01/07/2025 3:28 PM CDT [facility] Blood No Phlebotomy Charged / Unknown 01/07/2025 2:15 PM CDT 01/07/2025 3:05 PM CDT us Debra Cagle MD CHEMISTRY ORDERABLES Final R esult [facility] [place] [address] * (ABNORMAL) CMP (COMPREHENSIVE METABOLIC PANEL) (01/07/2025 2:15 PM CDT) [facility] SODIUM 135(L) 136 - 145 mmol/L 01/07/2025 3:28 PM CDT [facility] POTASSIUM 3.5 3.5 - 5.1 mmol/L 01/07/2025 3:28 PM CDT [facility] CHLORIDE 105 98 - 107 mmol/L 01/07/2025 3:28 PM CDT [facility] CO2, VENOUS 20(L) 22 - 30 mmol/L 01/07/2025 3:28 PM CDT [facility] ANION GAP 13.5 <18.0 mmol/L 01/07/2025 3:28 PM CDT [facility] GLUCOSE 121(H) 70 - 99 mg/dL 01/07/2025 3:28 PM CDT [facility] BUN 15 10 - 20 mg/dL 01/07/2025 3:28 PM CDT [facility] CREATININE, BLOOD 0.43(L) 0.60 - 1.00 mg/dL 01/07/2025 3:28 PM CDT [facility] BUN/CREATININE RATIO 35(H) 12 - 20 ratio 01/07/2025 3:28 PM CDT [facility] TOTAL PROTEIN 6.7 6.0 - 8.0 g/dL 01/07/2025 3:28 PM CDT [facility] ALBUMIN 3.3(L) 3.5 - 5.0 g/dL 01/07/2025 3:28 PM CDT [facility] A/G RATIO 1.0 1.0 - 2.2 01/07/2025 3:28 PM CDT [facility] CALCIUM 9.2 8.7 - 10.5 mg/dL 01/07/2025 3:28 PM CDT [facility] T BILI 0.3 0.2 - 1.2 mg/dL 01/07/2025 3:28 PM CDT [facility] SGOT (AST) 94(H) <43 U/L 01/07/2025 3:28 PM CDT [facility] SGPT (ALT) 100(H) <56 U/L 01/07/2025 3:28 PM CDT [facility] ALKALINE PHOSPHATASE 107 40 - 150 U/L 01/07/2025 3:28 PM CDT [facility] GFR, ESTIMATED >60 >=60 01/07/2025 3:28 PM CDT [facility] Comment: Creatinine Clearance is the preferred criteria for selecting drug dose adjustments in renally impaired patients. The GFR is provided as additional pertinent clinical information. GFR is reported in mL/min/1.73 sq m. Calculation based on the Chronic Kidney Disease Epidemiology Collaboration (CKD- EPI) equation refit without adjustment for race. GFR, EST. >60 >=60 025 3:28 PM CDT [facility] GFR, EST. NONAFRICAN >60 >=60 01/07/2025 3:28 PM CDT [facility] Blood No Phlebotomy Charged / Unknown 01/07/2025 2:15 PM CDT 01/07/2025 3:05 PM CDT us Debra Cagle MD CHEMISTRY ORDERABLES Final R esult [facility] [facility] [place] [address] documented in this encounter Visit Diagnoses Diagnosis Malignant neoplasm of liver, not specified as primary or secondary (HCC) Malignant neoplasm of liver, not specified as primary or secondary documented in this encounter Care Teams Deployment Engineer Relationship Specialty Start Date End Date Provider, Unknown UNKNOWN PCP - General 01/08/25 documented as of this encounter
--- OUTSIDE RECORDS SUMMARY | 2025-01-18 17:16 | XMS_ITS | Encounter Summary ---
Author Organization [facility] [employer] [facility] Address [address] [place] [address] Phone Care Team Providers Care Rural Mail Carrier Name Role Phone David Marmolejo DO Primary Care Provider [phone] Melanie Pandya [facility] Unavailable Unavailable Debra Cagle MD Unavailable [phone] Encounter Details Date Type Department Care Team (Late st Contact Info) Description 08/16/2020 Orders Only [facility] Scanning, Provider Social History Tobacco Use Types Packs/Day Years Used Date Smoking Tobacco: Never Assessed Comments Unknown Sex and Gender Information Value Date Recorded Sex Assigned at Not on file Legal 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
--- OUTSIDE RECORDS SUMMARY | 2025-01-18 17:16 | XMS_ITS | Encounter Summary ---
Author Organization [facility] [employer] [facility] Address [address] [place] [address] Phone Care Team Providers Care Vp Ancillary Name Role Phone David Marmolejo DO Primary Care Provider [phone] Melanie Pandya [facility] Unavailable Unavailable Debra Cagle MD Unavailable [phone] Encounter Details Date Type Department Care Team (Late st Contact Info) Description 06/10/2021 Orders Only [facility] Scanning, Provider Social History Tobacco Use Types Packs/Day Years Used Date Smoking Tobacco: Never Assessed Comments Unknown Sex and Gender Information Value Date Recorded Sex Assigned at Not on file 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
--- OUTSIDE RECORDS SUMMARY | 2025-01-18 17:16 | XMS_ITS | Continuity of Care Document ---
Author Organization [facility] Address [address] [place] [address] [facility] [address] [place] [address] Phone Care Team Providers Care Racebook Writer Name Role Phone BeenaJosé Miguel eastman Unavailable Unavailable Procedures Procedure Date Office/outpatient Visit, Est Advance Directives Directive Yes / No Effective Date File Name No Information Encounters Encounter Description Practice Location Reason(s) For Visit Diagnoses Date Provider Providers Copied on Encounter Office/outpat ient Visit, Est [facility], [address] [place], [place], [id number], [place] tel:[phone] [facility] No Information [phone] Kiko José Miguel. [address], [place], [address], [place]. tel:[phone] Family History Family Member Type Diagnosis Age At Onset No Information Payers Payer name Insurance type Covered libertarian ID Authoriza tion(s) No Information Social History [...]
--- OUTSIDE RECORDS SUMMARY | 2025-01-18 17:16 | XMS_ITS | Encounter Summary ---
Author Organization [facility] Address [address] [facility] [address] [place] [address] Phone Care Team Providers Care Cut In Station Operator Name Role Phone David Marmolejo DO Primary Care Provider [phone] Melanie Pandya [facility] Unavailable Unavailable Debra Cagle MD Unavailable [phone] Reason for Visit * Reason Onset Date Comments Spoke With Home Health Provider 01/16/2025 Encounter Details Date Type Department Care Team (Late st Contact Info) Description 01/16/2025 Telephone [facility] Surgery [address] [facility] [address] [place] [address] Debra Cagle MD [address] [facility] [phone] [place] [address] Spoke With Home Health Provider Social History Tobacco Use Types Packs/Day Years Used Date Smoking Tobacco: Former Cigarettes 0.8 15 1 977 - 1992 Passive Smoke Exposure: Past [facility] Utilities Answer Date Recorded In the past 12 months has [employer], gas, oil, or water [employer] threatened to shut off services in your [...] often do you attend chur ch or mandaeism services? Never 12/28/2024 Do you belong to [...] any time in the past [address] [facility], were you homeless or living in a jail (including now)? No 12/28/2024 Personal Safety Answer Date Recorded Have you ever been in or are you currently in a harmful physical or emotional relationship or is someone making you feel afraid or unsafe? 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 No Reason for call?: Yue Viramontes from [facility] Home care services is calling to check the status of patient's home care [place] plan of care faxed on 01/09/2025 and 01/15/2025 .please call back Who is the caller: Yue Viramontes What is the best number for them to contact for a call back: [phone] Last office visit: Visit date not found Date of Surgery: 12/25/2024 documented in this encounter Plan of Treatment Not on file documented as of this encounter Visit Diagnoses Not on filedocumented in this encounter Care Teams Cut In Station Operator Relationship Specialty Start Date End Date David Marmolejo DO PCP - General Internal Medicine 01/15/21 Debra Cagle MD [phone] [place] [address] PCP - Home Infusion Attending General Surgery 12/19/24 Melanie Pandya, [facility] Pharmacist Pharmacy 12/18/24 documented as of this encounter
--- OUTSIDE RECORDS SUMMARY | 2025-01-18 17:16 | XMS_ITS | Encounter Summary ---
Author Organization [facility] Address [address] [facility] [address] [place] [address] Phone Care Team Providers Care Extractor And Wringer Operator Name Role Phone David Marmolejo DO Primary Care Provider [phone] Melanie Pandya [facility] Unavailable Unavailable Debra Cagle MD Unavailable [phone] Encounter Details Date Type Department Care Team (Late st Contact Info) Description 01/18/2025 Documentation [facility] Surgery [address] [facility] [place] [phone] Ann Calvillo DNP [address] [facility] [id number] [place] [address] Social History Tobacco Use Types Packs/Day Years Used Date Smoking Tobacco: Former Cigarettes 0.8 15 1 977 - 1992 Passive Smoke Exposure: Past [facility] Utilities Answer Date Recorded In the past 12 months has [employer], gas, oil, or water company threatened to [...] often do you attend chur ch or cheondoism services? Never 12/28/2024 Do you belong to any clubs o r organizations such as restorationism groups, unions, fraternal or athletic groups, or [...] any time in the past 12 m [facility], were you homeless or living in a mcc (including now)? No 12/28/2024 Personal Safety Answer Date Recorded Have you ever been in or are you currently in a harmful physical or emotional relationship or is someone making you feel afraid or unsafe? 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 Confirmed with Iona that [facility] can teach patient how to administer medication. Octreotide will need to be administered three times daily subcutaneously for 3 minutes. Also let Iona know that patient was admitted locally for HR 190 and should be released tomorrow. Iona said she would have her team evaluate patient after she has been discharged. Ann Calvillo APRN-INFORMATION TECHNOLOGY CONSULTANT documented in this encounter Plan of Treatment Not on file documented as of this encounter Visit Diagnoses Not on filedocumented in this encounter Care Teams Extractor And Wringer Operator Relationship Specialty Start Date End Date David Marmolejo DO PCP - General Internal Medicine 01/15/21 Debra Cagle MD [phone] [place] [address] PCP - Home Infusion Attending General Surgery 12/19/24 Melanie Pandya, [facility] Pharmacist Pharmacy 12/18/24 documented as of this encounter
--- OUTSIDE RECORDS SUMMARY | 2025-01-18 17:16 | XMS_ITS | Encounter Summary ---
Author Organization [facility] Address [address] [place] [address] Phone Care Team Providers Care Floor Sanding Machine Operator Name Role Phone Provider, Unknown Primary Care Provider Unavaila ble Encounter Details Date Type Department Care Team (Late st Contact Info) Description 01/14/2025 Lab Requisition [facility] Laboratory Services [address] [place] [address] Debra Cagle MD 1 [place] [address] Malignant neoplasm of liver, not specified as [...] 01/21/2025 1:00 AM CDT [facility] [address] [place] [address] Iona Vanessa RN [place] 01/28/2025 1:00 AM CDT [facility] [address] [place] [address] Iona Vanessa RN [place] 02/04/2025 1:00 AM CDT [facility] [address] [place] [address] Iona Vanessa RN [place] 02/11/2025 1:00 AM CDT Appointment [facility] [address] [place] [address] Iona Vanessa RN [place] documented as of this encounter Procedures Procedure [...] 12.00 10(3)/mcL 01/14/2025 12:15 PM CDT [facility] RBC 3.69(L) 3.80 - 5.30 10(6)/mcL 01/14/2025 12:15 PM CDT [facility] HEMOGLOBIN (HGB) 10.3(L) 12.0 - 15.8 g/dL 01/14/2025 12:15 PM CDT [facility] HEMATOCRIT (HCT) 32.7(L) 36.0 - 47.0 % 01/14/2025 12:15 PM CDT [facility] MCV 88.6 82.0 - 96.0 fL 01/14/2025 12:15 PM CDT [facility] MCH 27.9 26.0 - 34.0 pg 01/14/2025 12:15 PM CDT [facility] MCHC 31.5 31.0 - 36.0 g/dL 01/14/2025 12:15 PM CDT [facility] PLATELET COUNT 389 140 - 440 10(3)/mcL 01/14/2025 12:15 PM CDT [facility] RDW 17.0(H) 11.8 - 15.5 % 01/14/2025 12:15 PM CDT [facility] MPV 10.2 9.7 - 12.4 fL 01/14/2025 12:15 PM CDT [facility] NEUTROPHILS 68.7 47.0 - 73.0 % 01/14/2025 12:15 PM CDT [facility] LYMPHOCYTES 13.1(L) 18.0 - 42.0 % 01/14/2025 12:15 PM CDT [facility] MONOCYTES 10.7 4.0 - 12.0 % 01/14/2025 12:15 PM CDT [facility] EOSINOPHILS 5.5(H) 0.0 - 5.0 % 01/14/2025 12:15 PM CDT [facility] BASOPHILS 1.2(H) 0.0 - 1.0 % 01/14/2025 12:15 PM CDT [facility] IMMATURE GRANULOCYTE 0.8(H) 0.0 - 0.4 % 01/14/2025 12:15 PM CDT [facility] Comment:Immature Granulocyte s includes Metamyelocytes, Myelocytes, and Promyelocytes. ABSOLUTE NEUTROPHILS 5.35 1.60 - 7.70 10(3)/mcL 01/14/2025 12:15 PM CDT [facility] ABSOLUTE LYMPHOCYTES 1.02(L) 1.30 - 3.20 10(3)/mcL 01/14/2025 12:15 PM CDT [facility] ABSOLUTE MONOCYTES 0.83 0.20 - 1.00 10(3)/mcL 01/14/2025 12:15 PM CDT [facility] ABSOLUTE EOSINOPHIL 0.43(H) 0.00 - 0.40 10(3)/mcL 01/14/2025 12:15 PM CDT [facility] ABSOLUTE BASOPHILS 0.09 0.00 - 0.10 10(3)/mcL 01/14/2025 12:15 PM CDT [facility] ABSOLUTE IMMATURE GRANULOCYTE 0.06(H) 0.00 - 0.03 10 (3) mcL. 01/14/2025 12:15 PM CDT [facility] NRBC PER 100 WBC 0 01/15/20 12:15 PM CDT [facility] Blood No Phlebotomy Charged / Unknown 01/14/2025 1:05 AM CDT 01/14/2025 12:12 PM CDT us Debra Cagle MD HEMATOLOGY ORDERABLES Final Result Performing Organization Address City/[facility]/ZIP Co de Phone Number [facility] [address] [place] [address] * MAGNESIUM (MG) (01/14/2025 1:05 AM CDT) [facility] MAGNESIUM 2.0 1.6 - 2.6 mg/dL 01/14/2025 12:48 PM CDT [facility] Blood No Phlebotomy Charged / Unknown 01/14/2025 1:05 AM CDT 01/14/2025 12:03 PM CDT Debra Cagle MD CHEMISTRY ORDERABLES Final R esult Performing Organization Address City/[facility]/ZIP Co de Phone Number [facility] [address] [place] [address] * PHOSPHORUS (PO4) (01/14/2025 1:05 AM CDT) PHOSPHORUS 3.7 2.5 - 4.5 mg/dL 01/14/2025 12:48 PM CDT [facility] Blood No Phlebotomy Charged / Unknown 01/14/2025 1:05 AM CDT 01/14/2025 12:03 PM CDT us Debra Cagle MD CHEMISTRY ORDERABLES Final R esult [facility] [address] [place] [address] * (ABNORMAL) CMP (COMPREHENSIVE METABOLIC PANEL) (01/14/2025 1:05 AM CDT) SODIUM 138 136 - 145 mmol/L 01/14/2025 12:48 PM CDT [facility] POTASSIUM 3.5 3.5 - 5.1 mmol/L 01/14/2025 12:48 PM CDT [facility] CHLORIDE 107 98 - 107 mmol/L 01/14/2025 12:48 PM CDT [facility] CO2, VENOUS 21(L) 22 - 30 mmol/L 01/14/2025 12:48 PM CDT [facility] ANION GAP 13.5 <18.0 mmol/L 01/14/2025 12:48 PM CDT [facility] GLUCOSE 127(H) 70 - 99 mg/dL 01/14/2025 12:48 PM CDT [facility] BUN 14 10 - 20 mg/dL 01/14/2025 12:48 PM CDT [facility] CREATININE, BLOOD 0.40(L) 0.60 - 1.00 mg/dL 01/14/2025 12:48 PM CDT [facility] BUN/CREATININE RATIO 35(H) 12 - 20 ratio 01/14/2025 12:48 PM CDT [facility] TOTAL PROTEIN 6.6 6.0 - 8.0 g/dL 01/14/2025 12:48 PM CDT [facility] ALBUMIN 3.4(L) 3.5 - 5.0 g/dL 01/14/2025 12:48 PM CDT [facility] A/G RATIO 1.1 1.0 - 2.2 01/14/2025 12:48 PM CDT [facility] CALCIUM 8.8 8.7 - 10.5 mg/dL 01/14/2025 12:48 PM CDT [facility] T BILI 0.4 0.2 - 1.2 mg/dL 01/14/2025 12:48 PM CDT [facility] SGOT (AST) 96(H) <43 U/L 01/14/2025 12:48 PM CDT [facility] SGPT (ALT) 85(H) <56 U/L 01/14/2025 12:48 PM CDT [facility] ALKALINE PHOSPHATASE 116 40 - 150 U/L 01/14/2025 12:48 PM CDT [facility] GFR, ESTIMATED >60 >=60 01/14/2025 12:48 PM CDT [facility] Comment: Creatinine Clearance is the preferred criteria for selecting drug dose adjustments in renally impaired patients. The GFR is provided as additional pertinent clinical information. GFR is reported in mL/min/1.73 sq m. Calculation based on the Chronic Kidney Disease Epidemiology Collaboration (CKD- EPI) equation refit without adjustment for race. GFR, EST. >60 >=60 025 12:48 PM CDT [facility] GFR, EST. NONAFRICAN >60 >=60 01/14/2025 12:48 PM CDT [facility] Blood No Phlebotomy Charged / Unknown 01/14/2025 1:05 AM CDT 01/14/2025 12:03 PM CDT us Debra Cagle MD CHEMISTRY ORDERABLES Final R esult [facility] [address] [place] [address] documented in this encounter Visit Diagnoses Diagnosis Malignant neoplasm of liver, not specified as primary or secondary (HCC) Malignant neoplasm of liver, not specified as primary or secondary documented in this encounter Care Teams Floor Sanding Machine Operator Relationship Specialty Start Date End Date Provider, Unknown UNKNOWN PCP - General 01/08/25 documented as of this encounter
--- OUTSIDE RECORDS SUMMARY | 2025-01-18 17:16 | XMS_ITS | Encounter Summary ---
Author Organization [facility] Healthcare Address [address] [place] [address] Care Team Providers Care Drop Wire Stringer Name Role Phone David Marmolejo DO Primary Care Provider [phone] Melanie Pandya [facility] Unavailable Unavailable Debra Cagle MD Unavailable [phone] Encounter Details Date Type Department Care Team (Late st Contact Info) Description 01/14/2025 Home Infusion [facility] Home Infusion Therapy [address] [place] [address] Brittney Mcwilliams [facility] Social History Tobacco Use Types Packs/Day Years Used Date Smoking Tobacco: Former Cigarettes 0.8 15 1 977 - 1991 Passive Smoke Exposure: Past [facility] Utilities Answer Date Recorded In the past 12 months has [employer], gas, oil, or water [employer] threatened to shut off services in your [...] often do you attend chur ch or christian services? Never 12/28/2024 Do you belong to any clubs o r organizations such as evangelical groups, unions, fraternal or athletic groups, or [...] any time in the past 12 m [facility], were you homeless or living in a detention (including now)? No 12/28/2024 Personal Safety Answer Date Recorded Have you ever been in or are you currently in a harmful physical or emotional relationship or is someone making you feel afraid or unsafe? Denies 12/26/2024 Comments No Sex and Gender Information Value Date Recorded Sex Assigned at Not on file Legal Sex Female 8:02 AM INFORMATICS NURSE SPECIALIST Gender Identity Not on file Sexual Orientation Not on file documented as of this encounter Plan of Treatment Not on file documented as of this encounter Visit Diagnoses Not on filedocumented in this encounter Care Teams Drop Wire Stringer Relationship Specialty Start Date End Date David Marmolejo DO PCP - General Internal Medicine 01/15/21 Debra Cagle MD [phone] [place] [address] PCP - Home Infusion Attending General Surgery 12/19/24 Melanie Pandya, [facility] Pharmacist Pharmacy 12/18/24 documented as of this encounter
--- OUTSIDE RECORDS SUMMARY | 2025-01-18 17:16 | XMS_ITS | Clinical Summary ---
Author Organization [facility] Address [address] [place] [address] Phone Care Team Providers Care Streaming Media Specialist Name Role Phone Provider, Unknown Primary [...] Type Department Care Team Description 01/16/[address] [address] Ree Alvarez, RN Returning call. 01/14/2025 10:00 AM CDT Home Care Visit [address] [address] Rhonda Delgadillo, RN SN - LAB 01/14/2025 Lab Requisition [facility] [address] [place] [address] Debra Cagle MD Malignant neoplasm of liver, not specified as primary or secondary (HCC) 01/07/2025 2:00 PM CDT Home Care Visit [address] [address] Denisa Valencia RN SN - LAB 01/07/2025 Lab Requisition [facility] [address] [place] [address] Debra Cagle MD Malignant neoplasm of liver, not specified as primary or secondary (HCC) 01/04/2025 Home Care Visit [address] [address] Iona Vanessa RN CASE COMMUNICATION 01/04/2025 Plan of Care Documentation [address] [address] 01/03/2025 3:00 PM CDT Home Care Visit [address] [address] Iona Vanessa, RN SN - [place] RESUMPTION OF CARE Discharge Disposition: Discharged to home or Selfcare 01/02/2025 Home Care Visit [address] [address] Iona Vanessa RN CASE COMMUNICATION 12/28/2024 Home Care Visit [address] [address] Iona Vanessa RN SN - [place] TRANSFER W/OUT DC 12/19/2024 2:00 PM CDT Home Care Visit [address] [address] Iona Vanessa RN SN - [place] START OF CARE 12/19/2024 Plan of Care Documentation [address] [address] from Last 3 Months Social History Tobacco [...] 01/21/2025 1:00 AM CDT Home Care Visit [address] [address] Iona Vanessa RN [place] 01/28/2025 1:00 AM CDT Home Care Visit [address] [address] Iona Vanessa RN [place] 02/04/2025 1:00 AM CDT Home Care Visit [address] [address] Iona Vanessa RN [place] 02/11/2025 1:00 AM CDT Appointment [facility] [address] [place] [address] Iona Vanessa RN [place] Health Maintenance Due Date Last Done Comments [...] - 12.00 10(3)/mcL 01/14/2025 12:15 PM CDT [facility] RBC 3.69(L) 3.80 - 5.30 10(6)/mcL 01/14/2025 12:15 PM CDT [facility] HEMOGLOBIN (HGB) 10.3(L) 12.0 - 15.8 g/dL 01/14/2025 12:15 PM CDT [facility] HEMATOCRIT (HCT) 32.7(L) 36.0 - 47.0 % 01/14/2025 12:15 PM CDT [facility] MCV 88.6 82.0 - 96.0 fL 01/14/2025 12:15 PM CDT [facility] MCH 27.9 26.0 - 34.0 pg 01/14/2025 12:15 PM CDT [facility] MCHC 31.5 31.0 - 36.0 g/dL 01/14/2025 12:15 PM CDT [facility] PLATELET COUNT 389 140 - 440 10(3)/mcL 01/14/2025 12:15 PM CDT [facility] RDW 17.0(H) 11.8 - 15.5 % 01/14/2025 12:15 PM CDT [facility] MPV 10.2 9.7 - 12.4 fL 01/14/2025 12:15 PM CDT [facility] NEUTROPHILS 68.7 47.0 - 73.0 % 01/14/2025 12:15 PM CDT [facility] LYMPHOCYTES 13.1(L) 18.0 - 42.0 % 01/14/2025 12:15 PM CDT [facility] MONOCYTES 10.7 4.0 - 12.0 % 01/14/2025 12:15 PM CDT [facility] EOSINOPHILS 5.5(H) 0.0 - 5.0 % 01/14/2025 12:15 PM CDT [facility] BASOPHILS 1.2(H) 0.0 - 1.0 % 01/14/2025 12:15 PM CDT [facility] IMMATURE GRANULOCYTE 0.8(H) 0.0 - 0.4 % 01/14/2025 12:15 PM CDT [facility] Comment:Immature Granulocyte s includes Metamyelocytes, Myelocytes, and Promyelocytes. ABSOLUTE NEUTROPHILS 5.35 1.60 - 7.70 10(3)/mcL 01/14/2025 12:15 PM CDT [facility] ABSOLUTE LYMPHOCYTES 1.02(L) 1.30 - 3.20 10(3)/mcL 01/14/2025 12:15 PM CDT [facility] ABSOLUTE MONOCYTES 0.83 0.20 - 1.00 10(3)/mcL 01/14/2025 12:15 PM CDT [facility] ABSOLUTE EOSINOPHIL 0.43(H) 0.00 - 0.40 10(3)/mcL 01/14/2025 12:15 PM CDT [facility] ABSOLUTE BASOPHILS 0.09 0.00 - 0.10 10(3)/mcL 01/14/2025 12:15 PM CDT [facility] ABSOLUTE IMMATURE GRANULOCYTE 0.06(H) 0.00 - 0.03 10 (3) mcL. 01/14/2025 12:15 PM CDT [facility] NRBC PER 100 WBC 0 01/15/20 25 12:15 PM CDT [facility] Blood No Phlebotomy Charged / Unknown 01/14/2025 1:05 AM CDT 01/14/2025 12:12 PM CDT us Debra Cagle MD HEMATOLOGY ORDERABLES Final Result Performing Organization Address City/[facility]/ZIP Co de Phone Number [facility] [address] [place] [address] * PHOSPHORUS (PO4) (01/14/2025 1:05 AM CDT) Only the most recent of2 resultswithin the time period is included. PHOSPHORUS 3.7 2.5 - 4.5 mg/dL 01/14/2025 12:48 PM CDT [facility] Blood No Phlebotomy Charged / Unknown 01/14/2025 1:05 AM CDT 01/14/2025 12:03 PM CDT us Debra Cagle MD CHEMISTRY ORDERABLES Final R esult [facility] [address] [place] [address] * MAGNESIUM (MG) (01/14/2025 1:05 AM CDT) Only the most recent of2 resultswithin the time period is included. MAGNESIUM 2.0 1.6 - 2.6 mg/dL 01/14/2025 12:48 PM CDT [facility] Blood No Phlebotomy Charged / Unknown 01/14/2025 1:05 AM CDT 01/14/2025 12:03 PM CDT us Debra Cagle MD CHEMISTRY ORDERABLES Final R esult [facility] [address] [place] [address] * (ABNORMAL) CMP (COMPREHENSIVE METABOLIC PANEL) (01/14/2025 1:05 AM CDT) Only the most recent of2 resultswithin the time period is included. SODIUM 138 136 - 145 mmol/L 01/14/2025 12:48 PM CDT [facility] POTASSIUM 3.5 3.5 - 5.1 mmol/L 01/14/2025 12:48 PM CDT [facility] CHLORIDE 107 98 - 107 mmol/L 01/14/2025 12:48 PM CDT [facility] CO2, VENOUS 21(L) 22 - 30 mmol/L 01/14/2025 12:48 PM CDT [facility] ANION GAP 13.5 <18.0 mmol/L 01/14/2025 12:48 PM CDT [facility] GLUCOSE 127(H) 70 - 99 mg/dL 01/14/2025 12:48 PM CDT [facility] BUN 14 10 - 20 mg/dL 01/14/2025 12:48 PM CDT [facility] CREATININE, BLOOD 0.40(L) 0.60 - 1.00 mg/dL 01/14/2025 12:48 PM T [facility] BUN/CREATININE RATIO 35(H) 12 - 20 ratio 01/14/2025 12:48 PM CDT [facility] TOTAL PROTEIN 6.6 6.0 - 8.0 g/dL 01/14/2025 12:48 PM T [facility] ALBUMIN 3.4(L) 3.5 - 5.0 g/dL 01/14/2025 12:48 PM T [facility] A/G RATIO 1.1 1.0 - 2.2 01/14/2025 12:48 PM [facility] CALCIUM 8.8 8.7 - 10.5 mg/dL 01/14/2025 12:48 PM T [facility] T BILI 0.4 0.2 - 1.2 mg/dL 01/14/2025 12:48 PM T [facility] SGOT (AST) 96(H) <43 U/L 01/14/2025 12:48 PM [facility] SGPT (ALT) 85(H) <56 U/L 01/14/2025 12:48 PM [facility] ALKALINE PHOSPHATASE 116 40 - 150 U/L 01/14/2025 12:48 PM T [facility] GFR, ESTIMATED >60 >=60 01/14/2025 12:48 PM [facility] Comment: Creatinine Clearance is the preferred criteria for selecting drug dose adjustments in renally impaired patients. The GFR is provided as additional pertinent clinical information. GFR is reported in mL/min/1.73 sq m. Calculation based on the Chronic Kidney Disease Epidemiology Collaboration (CKD- EPI) equation refit without adjustment for race. GFR, EST. >60 >=60 025 12:48 PM T [facility] GFR, EST. NONAFRICAN >60 >=60 01/14/2025 12:48 PM [facility] Blood No Phlebotomy Charged / Unknown 01/14/2025 1:05 AM CDT 01/14/2025 12:03 PM CDT us Debra Cagle MD CHEMISTRY ORDERABLES Final R esult [facility] [facility] [place] [address] from Last 3 Months Insurance [facility] Advance Directives * Full Code (Latest Code Status on File) Date Activated Date Inactivated Comments 12/20/2024 10:07 AM Care Teams Streaming Media Specialist Relationship Specialty Start Date End Date Provider, Unknown UNKNOWN PCP - General 01/08/25
--- OUTSIDE RECORDS SUMMARY | 2025-01-18 17:17 | XMS_ITS | Clinical Summary ---
Author Organization [facility] Address [address] [place] [address] Care Team Providers Care Procedure Tech Name Role Phone Salvador Ramirez MD Primary Care Provider [phone] Source Comments [facility],non-owned Affiliates and Associated Physician Practices is amultiple site organization consisting of ambulatory clinics and hospital sitesin [place], [place], [place] and [place]. This disclosure is being madepursuant to the Care Everywhere program and may not contain all information available regarding this patient. Last updated 18.[facility] Allergies No known active allergies Immunizations Immunization Administration Dates Next Due INFLUENZA VACCINE, QUADR. (F LUZONE; FLULAVAL; FLUARIX; AFLURIA QUADRIVALENT; 6MO+), 0.5 ML (IIV4) 04/18/2017 Social History Tobacco Use Types Packs/Day Years Used Date Smoking Tobacco: Never Assessed Comments Unknown Sex and Gender Information Value Date Recorded Sex Assigned at Not on file Legal Sex Female 1:13 PM [facility] AP[facility]AISER Gender Identity Not on file Sexual Orientation [...] this topic Insurance ANTHEM ANTHEM Care Teams Procedure Tech Relationship Specialty Start Date End Date Salvador Ramirez MD [address] [place] [address] PCP - General 07/16/20
--- OUTSIDE RECORDS SUMMARY | 2025-01-18 17:17 | XMS_ITS | Encounter Summary ---
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 [facility] [address] [place] [address] Phone: tel: fax: Referral ID Status Reason Start Date Expiration Date Visits Requested Visits Authorized [id number] Pending Review Specialty Services Required 11/27/2024 12/27/2025 1 1 Question Answer Please select the performing region: [facility] (All Locations) [[id number]] Please select the performing department: [facility] ACB5 [[id number]] Is this referral for Breast Health Multi-Disciplinary Clinic? No Does the patient have a diagnosis of a Head and Neck cancer? No To Provider NOTE: we will do our best to honor your provider preference, but scheduling the patient in a timely manner in our clinic will take precedence. 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
--- OUTSIDE RECORDS SUMMARY | 2025-01-18 17:17 | XMS_ITS ---
Author Organization [facility] Address [address] [place] [address] Care Team Providers Care Spd Tech Name Role Phone David Marmolejo DO Primary Care Provider [phone] Melanie Pandya [facility] Unavailable Unavailable Debra Cagle MD Unavailable [phone] TPN 1800mL daily Status:Enrolled (Active) Start date:12/13/2024 Enrollment date:12/13/2024 Linked medications:water for injection,sterile,sodium chloride,potassium chloride,potassium phos,m-awjfe-h-basic,calcium gluconate,magnesium sulfate,dextrose 70 % in water,parenteral amino acid 10% no.6,fat emul/soy/mct /oliv/fish oil,zinc/copper/manganese/selenium (Active) Related program episode:Home Infusion (Active) Case Team Name Relationship Phone Melanie Pandya [facility](Responsible Staff) Pharmacis t Continued Care and Services Coordination This section includes services coordinated for TPN 1800mL daily. Home Medical Care Name Services Phone [facility] Home Infusion an d Injection [phone]
--- OUTSIDE RECORDS SUMMARY | 2025-01-18 17:17 | XMS_ITS | Clinical Summary ---
Author Organization [facility] Address [address] [place] [address] Care Team Providers Care Main Line Assembler Name Role Phone David Marmolejo DO Primary Care Provider [phone] Melanie Pandya [facility] Unavailable Unavailable Debra Cagle MD Unavailable [phone] Allergies No known active allergies Medications fluticasone [...] mL IV as needed for line care 25928 mL 01/16/20 25 11:59 PM T 025 2025 Active heparin 10 unit/mL syringe flush syringeIndication s:Maintain Patency of Indwelling Vascular Catheter Infuse 5 mL (50 Units total) IV as needed (line care) 19107 mL 01/16/20 25 11:59 PM T 025 [...] hours by CADD pump at 150 mL/hr. 55559 mL 11 01/16/20 25 11:59 PM CDT [...] hours by CADD pump at 150 mL/hr. 83625 mL 11 12/20/19 25 3:16 PM CDT [...] Encounters Date Type Department Care Team Description 01/18/2025 Documentation [facility] Surgery [address] [place] [address] [address] [place] [phone] Ann Calvillo, TITA 01/16/2025 Telephone [facility] Surgery [facility] Floor 5 [place] [phone] Debra Cagle MD Spoke With Home Health Provider 01/14/2025 Documentation [facility] Surgery [address] [facility] [address] [place] [address] Ilene Wright PA 01/14/2025 Orders Only [facility] Surgery [address] [place] [address] [address] [place] [phone] Ann Calvillo, TITA 01/14/2025 Home Infusion [facility] Home Infusion Therapy [address] [place] [address] Brittney Mcwilliams [facility] 01/14/2025 Documentation [facility] Surgery [address] [place] [address] [address] [place] [phone] Ann Calvillo, TITA 01/08/[address] [facility] Surgeon 1 [place] [address] Ann Calvillo, TITA 01/08/[address] [facility] Surgeon 1 [place] [address] Ann Calvillo, TITA 01/07/2025 Documentation [facility] Oncology [address] [facility] Floor 5 [place] [address] Ann Calvillo, DNP 01/07/2025 Home Infusion [facility] [address] [place] [address] Brittney Mcwilliams, [facility] 01/07/2025 Telephone [facility] Surgery [address] [facility] [address] [place] [address] Ann Calvillo, DNP 01/07/2025 Telephone [facility] Surgery [facility] Floor 8 [place] [address] Debra Cagle MD [facility] 01/07/2025 Telephone [facility] Surgery [facility] Floor 8 [place] [address] Debra Cagle MD 01/02/2025 Plan of Care Documentation [facility] Home Infusion Therapy [address] [place] [address] 12/25/2024 10:05 AM CDT - 12/25/2024 2:35 PM CDT Surgery [facility] Operating Room 1 [place] [address] Debra Cagle MD ILEOCOLIC RESECTION AND OMENTECTOMY WITH TAP BLOCK 12/25/2024 9:11 AM CDT Anesthesia Event [facility] Operating Room 1 [place] [address] Te Wilson MD Conners, Jamie 12/25/2024 7:40 AM CDT - 01/02/2025 11:26 AM CDT Hospital Encounter [facility] 1 [place] [address] Debra Cagle MD 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 12/21/2024 1:00 PM CDT Pre-Admission Testing [facility] Center for Preoperative Assessment and [facility] [address] [place] [address] Preoperative testing (Primary Dx) 12/21/2024 Home Infusion [facility] Home Infusion Therapy [address] [place] [address] Adriana Escalona Small bowel obstruction (HCC); Severe malnutrition (CMS/HCC) 12/18/2024 Plan of Care Documentation [facility] Home Infusion Therapy [address] [place] [address] 12/18/2024 Home Infusion [facility] Home Infusion Therapy [address] [place] [address] Melanie Pandya, [facility] Small bowel obstruction (HCC) (Primary Dx); Severe malnutrition (CMS/HCC) 12/18/2024 Results Follow-Up [facility] [address] 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 3rd Floor [address] [place] [phone] Ana Herron MD Well woman exam (Primary Dx) 12/06/2024 Documentation [facility] Department of Hepatobiliary, Pancreatic, & Gastrointestinal Surgery [address] [facility] 12th Floor, [place] [address] Suzette Hunt NP 12/06/2024 Orders Only [facility] Department of Hepatobiliary, Pancreatic, & Gastrointestinal Surgery [address] [facility] 12th Floor, [place] [address] Suzette Hunt NP SBO (small bowel obstruction) (HCC) (Primary Dx); Failure to thrive in adult 12/05/2024 4:00 PM CDT Lab [facility] - Lab Collection [address] [facility] Floor 6 [place] [address] 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); SBO (small bowel obstruction) (HCC) 12/05/2024 2:30 PM CDT Office Visit [facility] Surgery [facility] Floor 6 [place] [address] Debra Cagle MD 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) (Primary Dx) 12/05/2024 Documentation [facility] Nutrition Counseling 1 [place] [address] Isac Du, OSMEL 12/05/2024 Documentation [facility] Nutrition Counseling 1 [place] [address] Isac Du, OSMEL 12/04/2024 9:18 AM CDT - 12/04/2024 11:59 PM CDT Hospital Encounter [facility] [place] - PET [address] [facility] Floor 8 [place] [address] Discharge Disposition: Discharge to home or self care 12/04/2024 9:17 AM CDT - 12/04/2024 11:59 PM CDT Hospital Encounter [facility] [place] - PET [address] [facility] Floor 8 [place] [address] SBO (small bowel obstruction) (HCC) Discharge Disposition: Discharge to home or self care 12/04/2024 Orders Only [facility] Surgery [address] [facility] [address] [place] [address] Ilene Wright PA SBO (small bowel obstruction) (HCC) (Primary Dx) 11/21/2024 Orders Only [facility] Surgery [address] [facility] Floor 6 [place] [phone] Debra Cagle MD 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 Surgeon 1 [place] [address] Debra Cagle MD Surgical pathology 11/16/2024 9:54 AM CDT - 11/16/2024 11:59 PM CDT Hospital Encounter [facility] Radiology 1 [place] [address] Epigastric pain Discharge Disposition: Discharge to home or self care 11/14/2024 Documentation [facility] Department of Hepatobiliary, Pancreatic, & Gastrointestinal Surgery [address] [facility] 12th Floor, [place] [address] Suzette Hunt NP 11/10/[address] [facility] Surgeon 1 [place] [address] Ciaran Navarro MD 11/06/2024 Orders Only [facility] Department of Hepatobiliary, Pancreatic, & Gastrointestinal Surgery [address] [facility] Medicine 12th Floor, [place] [phone] Suzette Hunt NP Epigastric pain (Primary Dx) 11/05/2024 Telephone Radiology 1 [place] [address] Tri Ramirez MD 11/03/2024 3:44 PM CDT - 11/06/2024 1:26 PM CDT Hospital Encounter [address] [phone] Debra Cagle MD Diagnosis unknown (Primary Dx) [...] Hypertension Sister Relation Name Status Comments Father WI's 1st 40s; d ied of [place] age 53 Mother Sister PONV Social History Tobacco Use Types Packs/Day Years Used Date Smoking Tobacco: Former Cigarettes 0.8 15 1 977 - 1991 Passive Smoke Exposure: Past Tobacco Cessation:Counseling Given: Not Answered [facility] Utilities Answer Date Recorded In the past 12 months has [employer], gas, oil, or water company threatened to [...] often do you attend chur ch or alevism services? Never 12/28/2024 Do you belong to any clubs o r organizations such as amish groups, unions, fraternal or athletic groups, or [...] any time in the past 12 [facility], were you homeless or living in a group home (including now)? No 12/28/2024 Personal Safety Answer Date Recorded Have you ever been in or are you currently in a harmful physical or emotional relationship or is someone making you feel afraid or unsafe? 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 Gender Identity Not on file Sexual Orientation [...] to liver (HCC) Small bowel obstruction (HCC) NE AN PROCEDURE PLACEHOLDER Routine 12/25/2024 9:56 AM CDT NE AN PROCEDURE PLACEHOLDER Routine 12/25/2024 9:55 AM CDT NE AN PROCEDURE PLACEHOLDER Routine 12/25/2024 9:53 AM CDT NE AN ELECTIVE ENDOTRACHEAL AIRWAY Routine 12/25/2024 9:53 [...] 19-9 Routine 11/04/2024 9 :26 AM CDT [id number], TUMOR MARKER Routine 11/04/2024 9:26 AM CDT [...] MD LAB BLOOD ORDERABLES Final R esult [facility] Department of Laboratories [place], [place] [id number] * (ABNORMAL) CBC without differential (01/01/2025 10:14 PM CDT) WBC 7.39 3.80 - 9.90 K/cumm Hgb 8.6(L) 11.9 - 15.5 g/dL [facility] Hct 26.1(L) 35.6 - 45.5 % [facility] Plt 358 150 - 400 K/cumm [facility] MPV 10.0 9.1 - 12.3 fL [facility] RBC 3.04(L) 3.90 - 5.20 M/cumm [facility] MCV 85.9 81.3 - 96.4 fL [facility] MCH 28.3 27.1 - 33.3 pg [facility] MCHC 33.0 32.3 - 35.7 g/dL [facility] RDW CV 17.2(H) 11.1 - 14.9 % [facility] RDW SD 53.4(H) 35.7 - 48.1 fL [facility] NRBC abs 0.00 0.00 - 0.01 K/cumm [facility] Blood 01/01/2025 10:1 4 PM CDT 01/01/2025 10:34 PM CDT us Debra Cagle MD LAB BLOOD ORDERABLES Final R esult Performing Organization Address City/[facility] Co de Phone Number [facility] [place] [address] * Phosphorus (01/01/2025 10:14 PM CDT) Pathologist [facility] Phosphorus, pl 4.5 2.3 - 4.5 mg/dL Blood 01/01/2025 10:1 4 PM CDT 01/01/2025 10:34 PM CDT us Debra Cagle MD LAB BLOOD ORDERABLES Final R esult Performing Organization Address [facility] Co de Phone Number [facility] [place] [address] * Magnesium (01/01/2025 10:14 PM CDT) Pathologist [facility] Magnesium 1.9 1.4 - 2.5 mg/dL Blood 01/01/2025 10:1 4 PM CDT 01/01/2025 10:34 PM CDT Debra Cagle MD LAB BLOOD ORDERABLES Final R esult Performing Organization Address [facility] Co de Phone Number [facility] [address] [place], [place] [phone] * (ABNORMAL) Comprehensive metabolic panel (01/01/2025 10:14 PM CDT) Pathologist [facility] Sodium 137 135 - 145 mmol/L Potassium, pl 3.9 3.3 - 4.9 mmol/L [facility] Chloride 103 97 - 110 mmol/L [facility] CO2 24 22 - 32 mmol/L [facility] Anion gap 10 2 - 15 mmol/L [facility] BUN 10 6 - 25 mg/dL [facility] Creatinine 0.39(L) 0.60 - 1.10 mg/dL [facility] Glucose 83 70 - 199 mg/dL [facility] Comment: Interpretive Data Fasting glucose [...] 2022. Calcium 8.6 8.5 - 10.3 mg/dL [facility] Bilirubin, total 0.3 0.1 - 1.2 mg/dL [facility] Protein, pl 5.2(L) 6.5 - 8.5 g/dL [facility] Albumin 2.4(L) 3.5 - 5.0 g/dL [facility] Alk phos 78 40 - 130 Units/L [facility] ALT 45 7 - 45 Units/L [facility] AST 34 10 - 45 Units/L [facility] Blood 01/01/2025 10:1 4 PM CDT 01/01/2025 10:34 PM CDT us Debra Cagle MD LAB BLOOD ORDERABLES Final R esult [facility] Department [place] [address] * eGFR (12/31/2024 9:20 PM CDT) eGFR [...] MD LAB BLOOD ORDERABLES Final R esult [facility] [place] [address] * (ABNORMAL) CBC without differential (12/31/2024 9:20 PM CDT) WBC 10.62(H) 3.80 - 9.90 K/cumm Hgb 9.5(L) 11.9 - 15.5 g/dL [facility] Hct 28.4(L) 35.6 - 45.5 % [facility] Plt 445(H) 150 - 400 K/cumm [facility] MPV 9.7 9.1 - 12.3 fL [facility] RBC 3.41(L) 3.90 - 5.20 M/cumm [facility] MCV 83.3 81.3 - 96.4 fL [facility] MCH 27.9 27.1 - 33.3 pg [facility] MCHC 33.5 32.3 - 35.7 g/dL [facility] RDW CV 17.1(H) 11.1 - 14.9 % [facility] RDW SD 51.6(H) 35.7 - 48.1 fL [facility] NRBC abs 0.00 0.00 - 0.01 K/cumm [facility] Blood 12/31/2024 9:20 PM CDT 12/31/2024 9:39 PM CDT Debra Cagle MD LAB BLOOD ORDERABLES Final R esult Performing Organization Address [facility] Co de Phone Number [facility] [place] [address] * (ABNORMAL) Phosphorus (12/31/2024 9:20 PM CDT) Phosphorus, pl 4.6(H) 2.3 - 4.5 mg/dL Blood 12/31/2024 9:20 PM CDT 12/31/2024 9:32 PM CDT Debra Cagle MD LAB BLOOD ORDERABLES Final R esult Performing Organization Address [facility] Co de Phone Number [facility] [place] [address] * Magnesium (12/31/2024 9:20 PM CDT) Pathologist [facility] Magnesium 1.8 1.4 - 2.5 mg/dL Blood 12/31/2024 9:20 PM CDT 12/31/2024 9:32 PM CDT Debra Cagle MD LAB BLOOD ORDERABLES Final R esult Performing Organization Address [facility] Co de Phone Number [facility] [place] [address] * (ABNORMAL) Comprehensive metabolic panel (12/31/2024 9:20 PM CDT) Pathologist [facility] Sodium 140 135 - 145 mmol/L Potassium, pl 4.6 3.3 - 4.9 mmol/L [facility] Chloride 106 97 - 110 mmol/L [facility] CO2 24 22 - 32 mmol/L [facility] Anion gap 10 2 - 15 mmol/L [facility] BUN 12 6 - 25 mg/dL [facility] Creatinine 0.42(L) 0.60 - 1.10 mg/dL [facility] Glucose 91 70 - 199 mg/dL [facility] Comment: Interpretive Data Fasting glucose [...] 2022. Calcium 8.7 8.5 - 10.3 mg/dL [facility] Bilirubin, total 0.3 0.1 - 1.2 mg/dL [facility] Protein, pl 5.6(L) 6.5 - 8.5 g/dL [facility] Albumin 2.6(L) 3.5 - 5.0 g/dL [facility] Alk phos 88 40 - 130 Units/L [facility] ALT 58(H) 7 - 45 Units/L [facility] AST 40 10 - 45 Units/L [facility] Blood 12/31/2024 9:20 PM CDT 12/31/2024 9:32 PM CDT us Debra Cagle MD LAB BLOOD ORDERABLES Final R esult [facility] [place] [address] * eGFR (12/31/2024 5:11 AM CDT) eGFR [...] MD LAB BLOOD ORDERABLES Final Resul t [facility] [place] [address] * (ABNORMAL) CBC without differential (12/31/2024 5:11 AM CDT) Pathologist [facility] WBC 6.59 3.80 - 9.90 K/cumm Hgb 8.2(L) 11.9 - 15.5 g/dL [facility] Hct 24.9(L) 35.6 - 45.5 % [facility] Plt 317 150 - 400 K/cumm [facility] MPV 9.9 9.1 - 12.3 fL [facility] RBC 2.95(L) 3.90 - 5.20 M/cumm [facility] MCV 84.4 81.3 - 96.4 fL [facility] Comment:Consistent with hist orical value. MCH 27.8 27.1 - 33.3 pg [facility] MCHC 32.9 32.3 - 35.7 g/dL [facility] RDW CV 17.1(H) 11.1 - 14.9 % [facility] RDW SD 52.4(H) 35.7 - 48.1 fL [facility] NRBC abs 0.00 0.00 - 0.01 K/cumm [facility] Blood 12/31/2024 5:11 AM CDT 12/31/2024 5:26 AM CDT Iveth Bautista MD LAB BLOOD ORDERABLES Final Resul t Performing Organization Address [facility] [place] [address] * Phosphorus (12/31/2024 5:11 AM CDT) Pathologist [facility] Phosphorus, pl 4.5 2.3 - 4.5 mg/dL Blood 12/31/2024 5:11 AM CDT 12/31/2024 5:27 AM CDT us Iveth Bautista MD LAB BLOOD ORDERABLES Final Resul t Performing Organization Address [facility] Co de Phone Number [facility] [place] [address] * Magnesium (12/31/2024 5:11 AM CDT) Pathologist [facility] Magnesium 2.1 1.4 - 2.5 mg/dL Blood 12/31/2024 5:11 AM CDT 12/31/2024 5:27 AM CDT Iveth Bautista MD LAB BLOOD ORDERABLES Final Resul t Performing Organization Address [facility] Co de Phone Number [facility] [place] [address] * (ABNORMAL) Comprehensive metabolic panel (12/31/2024 5:11 AM CDT) Sodium 138 135 - 145 mmol/L Comment:Repeated and Verifie d Potassium, pl 3.8 3.3 - 4.9 mmol/L [facility] Chloride 105 97 - 110 mmol/L [facility] Comment:Repeated and Verifie d CO2 27 22 - 32 mmol/L [facility] Anion gap 6 2 - 15 mmol/L [facility] BUN 10 6 - 25 mg/dL [facility] Creatinine 0.35(L) 0.60 - 1.10 mg/dL [facility] Glucose 153 70 - 199 mg/dL [facility] Comment: Interpretive Data Fasting glucose [...] 2022. Calcium 7.9(L) 8.5 - 10.3 mg/dL [facility] Bilirubin, total 0.2 0.1 - 1.2 mg/dL [facility] Protein, pl 4.7(L) 6.5 - 8.5 g/dL [facility] Albumin 2.5(L) 3.5 - 5.0 g/dL [facility] Alk phos 79 40 - 130 Units/L [facility] ALT 55(H) 7 - 45 Units/L [facility] AST 34 10 - 45 Units/L [facility] Blood 12/31/2024 5:11 AM CDT 12/31/2024 5:27 AM CDT us Iveth Bautista MD LAB BLOOD ORDERABLES Final Resul t [facility] [place] [address] * eGFR (12/30/2024 11:09 PM CDT) eGFR [...] LAB BLOOD ORDERABLES Edited Result - Final [facility] [place] [address] * Critical Result Callback Chemistry (12/30/2024 11:09 PM CDT) Date Notified [id number] Time Notified 314 MAYA CANO TestName Glucose, Potassium plas MAYA WITT Called/Read Back Christal CANO Credentials TARUN WITT Called By IDA WITT Blood 12/30/2024 11:0 9 PM CDT 12/31/2024 2:22 AM CDT us Debra Cagle MD LAB BLOOD ORDERABLES Final R esult [facility] [place] [address] * (ABNORMAL) CBC without differential (12/30/2024 11:09 PM CDT) [facility] WBC 7.58 3.80 - 9.90 K/cumm Hgb 8.7(L) 11.9 - 15.5 g/dL [facility] Hct 26.6(L) 35.6 - 45.5 % [facility] Plt 325 150 - 400 K/cumm [facility] MPV 13.0(H) 9.1 - 12.3 fL [facility] RBC 2.92(L) 3.90 - 5.20 M/cumm [facility] MCV 91.1 81.3 - 96.4 fL [facility] Comment:MCV delta due to glu cose > 500. MCH 29.8 27.1 - 33.3 pg [facility] MCHC 32.7 32.3 - 35.7 g/dL [facility] RDW CV 18.2(H) 11.1 - 14.9 % [facility] RDW SD 59.9(H) 35.7 - 48.1 fL [facility] NRBC abs 0.02(H) 0.00 - 0.01 K/cumm [facility] Blood 12/30/2024 11:0 9 PM CDT 12/31/2024 2:22 AM CDT us Debra Cagle MD LAB BLOOD ORDERABLES Final R esult [facility] [place] [address] * Phosphorus (12/30/2024 11:09 PM CDT) Pathologist [facility] Phosphorus, pl See Comment 2.3 - 4.5 mg/dL Comment:Credited: Sample inv estigated and is suggestive of an improper collection (e.g., IV fluid contamination, improper tube type). Deleted at the Request of Christal Toney) on 12/31/2024 03:39:40 CDT by SK . Blood 12/30/2024 11:0 9 PM CDT 12/31/2024 2:09 AM CDT Debra Cagle MD LAB BLOOD ORDERABLES Edited Result - Final Performing Organization Address [facility] de Phone Number [facility] [place] [address] * Magnesium (12/30/2024 11:09 PM CDT) Magnesium See Comment 1.4 - 2.5 mg/dL Comment:Credited: Sample inv estigated and is suggestive of an improper collection (e.g., IV fluid contamination, improper tube type). Deleted at the Request of Christal Toney) on 12/31/2024 03:39:40 CDT by IDA . Blood 12/30/2024 11:0 9 PM CDT 12/31/2024 2:09 AM CDT us Debra Cagle MD LAB BLOOD ORDERABLES Edited Result - Final Performing Organization Address [facility] de Phone Number [facility] [place] [address] * Comprehensive metabolic panel (12/30/2024 11:09 PM CDT) Sodium See Comment 135 - 145 mmol/L Comment:Credited: Sample inv estigated and is suggestive of an improper collection (e.g., IV fluid contamination, improper tube type). Deleted at the Request of Christal Toney) on 12/31/2024 03:39:40 CDT by SK . Potassium, pl See Comment 3.3 - 4.9 mmol/L [facility] Comment:Credited: Sample inv estigated and is suggestive of an improper collection (e.g., IV fluid contamination, improper tube type). Deleted at the Request of Christal Toney) on 12/31/2024 03:39:40 CDT by SK . Chloride See Comment 97 - 110 mmol/L [facility] Comment:Credited: Sample inv estigated and is suggestive of an improper collection (e.g., IV fluid contamination, improper tube type). Deleted at the Request of Christal Toney) on 12/31/2024 03:39:40 CDT by SK . CO2 See Comment 22 - 32 mmol/L [facility] Comment:Credited: Sample inv estigated and is suggestive of an improper collection (e.g., IV fluid contamination, improper tube type). Deleted at the Request of Christal Toney) on 12/31/2024 03:39:40 CDT by SK . Anion gap See Comment 2 - 15 mmol/L [facility] Comment:Credited: Sample inv estigated and is suggestive of an improper collection (e.g., IV fluid contamination, improper tube type). Deleted at the Request of Christal Toney) on 12/31/2024 03:39:40 CDT by SK . BUN See Comment 6 - 25 mg/dL [facility] Comment:Credited: Sample inv estigated and is suggestive of an improper collection (e.g., IV fluid contamination, improper tube type). Deleted at the Request of Christal Toney) on 12/31/2024 03:39:40 CDT by SK . Creatinine See Comment 0.60 - 1.10 mg/dL [facility] Comment:Credited: Sample inv estigated and is suggestive of an improper collection (e.g., IV fluid contamination, improper tube type). Deleted at the Request of Christal Toney) on 12/31/2024 03:39:40 CDT by SK . Glucose See Comment 70 - 199 mg/dL [facility] Comment: Credited: Sample investigated and [...] Calcium See Comment 8.5 - 10.3 mg/dL [facility] Comment:Credited: Sample inv estigated and is suggestive of an improper collection (e.g., IV fluid contamination, improper tube type). Deleted at the Request of Christal Toney) on 12/31/2024 03:39:40 CDT by SK . Bilirubin, total See Comment 0.1 - 1.2 mg/dL [facility] Comment:Credited: Sample inv estigated and is suggestive of an improper collection (e.g., IV fluid contamination, improper tube type). Deleted at the Request of Christal Gupta(TARUN) on 12/31/2024 03:39:40 CDT by SK . Protein, pl See Comment 6.5 - 8.5 g/dL [facility] Comment:Credited: Sample inv estigated and is suggestive of an improper collection (e.g., IV fluid contamination, improper tube type). Deleted at the Request of Christal Toney) on 12/31/2024 03:39:40 CDT by SK . Albumin See Comment 3.5 - 5.0 g/dL [facility] Comment:Credited: Sample inv estigated and is suggestive of an improper collection (e.g., IV fluid contamination, improper tube type). Deleted at the Request of Christal Toney) on 12/31/2024 03:39:40 CDT by SK Sakshi Alk phos See Comment 40 - 130 Units/L [facility] Comment:Credited: Sample inv estigated and is suggestive of an improper collection (e.g., IV fluid contamination, improper tube type). Deleted at the Request of Christal Toney) on 12/31/2024 03:39:40 CDT by SK . ALT See Comment 7 - 45 Units/L [facility] Comment: After removal of gross lipemia. Credited: Sample investigated and is suggestive of an improper collection (e.g., IV fluid contamination, improper tube type). Deleted at the Request of Christal Gupta(TARUN) on 12/31/2024 03:39:40 CDT by SK . AST See Comment 10 - 45 Units/L [facility] Comment: After removal of gross lipemia. Credited: Sample investigated and is suggestive of an improper collection (e.g., IV fluid contamination, improper tube type). Deleted at the Request of Christal Gupta(TARUN) on 12/31/2024 03:39:40 CDT by SK . Blood 12/30/2024 11:0 9 PM CDT 12/31/2024 2:09 AM CDT Debra Cagle MD LAB BLOOD ORDERABLES Edited Result - Final Performing Organization Address City/[facility]/ZIP Co de Phone Number [facility] [place] [address] * Infection Prevention VRE Culture Stool (12/30/2024 6:47 AM CDT) Report Final Report: Negative Stool 12/30/2024 6:47 AM CDT 12/30/2024 9:17 AM CDT Narrative [facility] - 01/01/2025 11:46 AM CDT Surveillance culture for Infection Prevention purposes only; results indicate colonization, not infection requiring treatment. Testing performed by [facility] ([phone]). Debra Cagle MD LAB MICROBIOLOGY - GENERAL O RDERABLES Final Result Performing Organization Address City/[facility]/ZIP Co de Phone Number [facility] [place] [address] * C. difficile testing Stool (12/30/2024 6:43 AM CDT) GD Result Positive Negative Toxin Result Negative Negative [facility] C. diff result Negative, free toxin. Negative, free toxin [facility] C. diff interp GDH+/toxin- results almost never represent true C. difficile infection (CDI). Results may represent colonization with C. difficile without CDI, detection of a bacteria other than toxigenic C. difficile, or a false negative toxin assay. If there is a high index of suspicion for CDI, additional testing by PCR is available upon request. [facility] Stool 12/30/2024 6:43 AM CDT 12/30/2024 7:37 AM CDT us Debra Cagle MD LAB MICROBIOLOGY - GENERAL O RDERABLES Final Result [facility] [place] [address] * eGFR (12/29/2024 8:32 PM CDT) Pathologist [facility] eGFR >90 >=60 mL/min/1. 73 m2 Comment: [...] ORDERABLES Final R esult Performing Organization Address City/[facility] Co de Phone Number [facility] [place] [address] * (ABNORMAL) CBC without differential (12/29/2024 8:32 PM CDT) Pathologist [facility] WBC 7.14 3.80 - 9.90 K/cumm Hgb 9.3(L) 11.9 - 15.5 g/dL [facility] Hct 27.7(L) 35.6 - 45.5 % [facility] Plt 330 150 - 400 K/cumm [facility] MPV 9.7 9.1 - 12.3 fL [facility] RBC 3.38(L) 3.90 - 5.20 M/cumm [facility] MCV 82.0 81.3 - 96.4 fL [facility] MCH 27.5 27.1 - 33.3 pg [facility] MCHC 33.6 32.3 - 35.7 g/dL [facility] RDW CV 17.2(H) 11.1 - 14.9 % [facility] RDW SD 50.4(H) 35.7 - 48.1 fL [facility] NRBC abs 0.00 0.00 - 0.01 K/cumm [facility] Blood 12/29/2024 8:32 PM CDT 12/29/2024 8:54 PM CDT us Debra Cagle MD LAB BLOOD ORDERABLES Final R es[place] [address] * Phosphorus (12/29/2024 8:32 PM CDT) Pathologist [facility] Phosphorus, pl 4.2 2.3 - 4.5 mg/dL Blood 12/29/2024 8:32 PM CDT 12/29/2024 8:53 PM CDT us Debra Cagle MD LAB BLOOD ORDERABLES Final R esult [facility] [place] [address] * Magnesium (12/29/2024 8:32 PM CDT) Pathologist [facility] Magnesium 1.9 1.4 - 2.5 mg/dL Blood 12/29/2024 8:32 PM CDT 12/29/2024 8:53 PM CDT us Debra Cagle MD LAB BLOOD ORDERABLES Final R esult Performing Organization Address [facility] Co de Phone Number [facility] [place] [address] * (ABNORMAL) Comprehensive metabolic panel (12/29/2024 8:32 PM CDT) Pathologist [facility] Sodium 137 135 - 145 mmol/L Potassium, pl 4.0 3.3 - 4.9 mmol/L [facility] Chloride 104 97 - 110 mmol/L [facility] CO2 25 22 - 32 mmol/L [facility] Anion gap 8 2 - 15 mmol/L [facility] BUN 11 6 - 25 mg/dL [facility] Creatinine 0.39(L) 0.60 - 1.10 mg/dL [facility] Glucose 81 70 - 199 mg/dL [facility] Comment: Interpretive Data Fasting glucose [...] 2022. Calcium 8.3(L) 8.5 - 10.3 mg/dL [facility] Bilirubin, total 0.4 0.1 - 1.2 mg/dL [facility] Protein, pl 5.0(L) 6.5 - 8.5 g/dL [facility] Albumin 2.4(L) 3.5 - 5.0 g/dL [facility] Alk phos 86 40 - 130 Units/L [facility] ALT 75(H) 7 - 45 Units/L [facility] AST 71(H) 10 - 45 Units/L [facility] Blood 12/29/2024 8:32 PM CDT 12/29/2024 8:53 PM CDT us Debra Cagle MD LAB BLOOD ORDERABLES Final R esult [facility] [place] [address] * eGFR (12/28/2024 8:04 PM CDT) eGFR [...] MD LAB BLOOD ORDERABLES Final R esult [facility] [place] [address] * (ABNORMAL) CBC without differential (12/28/2024 8:04 PM CDT) Pathologist [facility] WBC 7.51 3.80 - 9.90 K/cumm Hgb 8.3(L) 11.9 - 15.5 g/dL [facility] Hct 25.3(L) 35.6 - 45.5 % [facility] Plt 275 150 - 400 K/cumm [facility] MPV 10.1 9.1 - 12.3 fL [facility] RBC 3.00(L) 3.90 - 5.20 M/cumm [facility] MCV 84.3 81.3 - 96.4 fL [facility] MCH 27.7 27.1 - 33.3 pg [facility] MCHC 32.8 32.3 - 35.7 g/dL [facility] RDW CV 17.2(H) 11.1 - 14.9 % [facility] RDW SD 52.4(H) 35.7 - 48.1 fL [facility] NRBC abs 0.00 0.00 - 0.01 K/cumm [facility] Blood 12/28/2024 8:04 PM CDT 12/28/2024 8:57 PM CDT us Debra Cagle MD LAB BLOOD ORDERABLES Final R es[place] [address] * Phosphorus (12/28/2024 8:04 PM CDT) Pathologist [facility] Phosphorus, pl 3.2 2.3 - 4.5 mg/dL Blood 12/28/2024 8:04 PM CDT 12/28/2024 8:47 PM CDT us Debra Cagle MD LAB BLOOD ORDERABLES Final R esult Performing Organization Address City/[facility]/ZIP Co de Phone Number [facility] [place] [address] * Magnesium (12/28/2024 8:04 PM CDT) Pathologist [facility] Magnesium 1.8 1.4 - 2.5 mg/dL Blood 12/28/2024 8:04 PM CDT 12/28/2024 8:47 PM CDT Debra Cagle MD LAB BLOOD ORDERABLES Final R esult Performing Organization Address [facility] de Phone Number [facility] [place] [address] * (ABNORMAL) Comprehensive metabolic panel (12/28/2024 8:04 PM CDT) [facility] Sodium 140 135 - 145 mmol/L Potassium, pl 4.1 3.3 - 4.9 mmol/L [facility] Chloride 107 97 - 110 mmol/L [facility] CO2 27 22 - 32 mmol/L [facility] Anion gap 6 2 - 15 mmol/L [facility] BUN 11 6 - 25 mg/dL [facility] Creatinine 0.36(L) 0.60 - 1.10 mg/dL [facility] Glucose 79 70 - 199 mg/dL [facility] Comment: Interpretive Data Fasting glucose [...] 2022. Calcium 7.9(L) 8.5 - 10.3 mg/dL [facility] Bilirubin, total 0.4 0.1 - 1.2 mg/dL [facility] Protein, pl 4.5(L) 6.5 - 8.5 g/dL [facility] Albumin 2.2(L) 3.5 - 5.0 g/dL [facility] Alk phos 70 40 - 130 Units/L [facility] ALT 57(H) 7 - 45 Units/L [facility] AST 50(H) 10 - 45 Units/L [facility] Blood 12/28/2024 8:04 PM CDT 12/28/2024 8:47 PM CDT us Debra Cagle MD LAB BLOOD ORDERABLES Final R esult Performing Organization Address City/[facility] Co de Phone Number [facility] [address] * (ABNORMAL) Hepatic function panel (12/28/2024 6:04 AM CDT) Bilirubin, total 0.3 0.1 - 1.2 mg/dL Bilirubin, direct 0.2 0.1 - 0.3 mg/dL [facility] Protein, pl 4.5(L) 6.5 - 8.5 g/dL [facility] Albumin 2.2(L) 3.5 - 5.0 g/dL [facility] Alk phos 61 40 - 130 Units/L [facility] ALT 44 7 - 45 Units/L [facility] AST 42 10 - 45 Units/L [facility] Blood 12/28/2024 6:04 AM CDT 12/28/2024 6:45 AM CDT us Debra Cagle MD LAB BLOOD ORDERABLES Final R esult Performing Organization Address City/[facility]/ZIP Co de Phone Number [place] [address] * eGFR (12/27/2024 8:22 PM CDT) [facility] eGFR >90 >=60 mL/min/1. 73 [...] MD LAB BLOOD ORDERABLES Final R esult [facility] [place] [address] * (ABNORMAL) CBC without differential (12/27/2024 8:22 PM CDT) [facility] WBC 9.97(H) 3.80 - 9.90 K/cumm Hgb 9.1(L) 11.9 - 15.5 g/dL [facility] Hct 26.5(L) 35.6 - 45.5 % [facility] Plt 265 150 - 400 K/cumm [facility] MPV 9.8 9.1 - 12.3 fL [facility] RBC 3.29(L) 3.90 - 5.20 M/cumm [facility] MCV 80.5(L) 81.3 - 96.4 fL [facility] MCH 27.7 27.1 - 33.3 pg [facility] MCHC 34.3 32.3 - 35.7 g/dL [facility] RDW CV 17.1(H) 11.1 - 14.9 % [facility] RDW SD 49.8(H) 35.7 - 48.1 fL [facility] NRBC abs 0.00 0.00 - 0.01 K/cumm [facility] Blood 12/27/2024 8:22 PM CDT 12/27/2024 8:51 PM CDT us Debra Cagle MD LAB BLOOD ORDERABLES Final R esult Performing Organization Address City/[facility] Co de Phone Number [facility] [place] [address] * Phosphorus (12/27/2024 8:22 PM CDT) Phosphorus, pl 2.4 2.3 - 4.5 mg/dL Blood 12/27/2024 8:22 PM CDT 12/27/2024 8:51 PM CDT us Debra Cagle MD LAB BLOOD ORDERABLES Final R esult Performing Organization Address City/[facility] Co de Phone Number [place] [address] * Magnesium (12/27/2024 8:22 PM CDT) Magnesium 1.8 1.4 - 2.5 mg/dL Blood 12/27/2024 8:22 PM CDT 12/27/2024 8:51 PM CDT us Debra Cagle MD LAB BLOOD ORDERABLES Final R esult Performing Organization Address City/[facility]/ZIP Co de Phone Number [facility] [place] [address] * (ABNORMAL) Basic metabolic panel (12/27/2024 8:22 PM CDT) Sodium 140 135 - 145 mmol/L Potassium, pl 3.1(L) 3.3 - 4.9 mmol/L [facility] Chloride 103 97 - 110 mmol/L [facility] CO2 30 22 - 32 mmol/L [facility] Anion gap 7 2 - 15 mmol/L [facility] BUN 8 6 - 25 mg/dL [facility] Creatinine 0.37(L) 0.60 - 1.10 mg/dL [facility] Glucose 84 70 - 199 mg/dL [facility] Comment: Interpretive Data Fasting glucose [...] 2022. Calcium 8.1(L) 8.5 - 10.3 mg/dL [facility] Blood 12/27/2024 8:22 PM CDT 12/27/2024 8:51 PM CDT Debra Cagle MD LAB BLOOD ORDERABLES Final R esult [facility] [place] [address] * (ABNORMAL) Iron profile w/ IBC (12/27/2024 10:37 AM CDT) Pathologist [facility] Iron 22(L) 35 - 145 mcg/dL Comment:Reviewed TIBC 106(L) 250 - 400 mcg/dL [facility] Transferrin saturation 21 20 - 50 % [facility] Blood 12/27/2024 10:3 7 AM CDT 12/27/2024 11:25 AM CDT us Suzette Hunt NP LAB BLOOD ORDERABLES Final Result Performing Organization Address City/[facility]/ZIP Co de Phone Number [facility] [place] [address] * ECG 12 lead (12/27/2024 10:36 AM CDT) Ventricular Rate EKG/Min 122 BPM [facility] Atrial Rate 122 BPM [facility] NE-Interval (MSEC) 148 ms [facility] QRS-Interval (MSEC) 84 ms [facility] QT-Interval (MSEC) 332 ms [facility] QTc 473 ms [facility] P [place] 76 degrees [facility] R [place] 53 degrees [facility] T [place] 77 degrees [facility] Diagnosis Sinus tachycardia Otherwise normal ECG When compared with ECG of 26-DEC-2024 05:36, No significant change was found Confirmed by JOSÉ MIGUEL SANDOVAL M.D ([id number]) on 12/28/2024 4:38:34 PM [facility] 12/27/2024 10:3 6 AM CDT 12/28/2024 4:38 PM CDT us Suzette Hunt NP ECG ORDERABLES Final Resu lt Performing Organization Address City/[facility] Co de Phone Number [facility] * eGFR (12/26/2024 8:50 PM CDT) Pathologist [facility] eGFR >90 >=60 mL/min/1. 73 m2 Comment: [...] 8:50 PM CDT 12/26/2024 10:40 PM CDT us Debra Cagle MD LAB BLOOD ORDERABLES Final R esult [facility] [place] [address] * (ABNORMAL) CBC without differential (12/26/2024 8:50 PM CDT) WBC 11.21(H) 3.80 - 9.90 K/cumm Hgb 9.7(L) 11.9 - 15.5 g/dL [facility] Hct 28.6(L) 35.6 - 45.5 % [facility] Plt 251 150 - 400 K/cumm [facility] MPV 10.1 9.1 - 12.3 fL [facility] RBC 3.53(L) 3.90 - 5.20 M/cumm [facility] MCV 81.0(L) 81.3 - 96.4 fL [facility] MCH 27.5 27.1 - 33.3 pg [facility] MCHC 33.9 32.3 - 35.7 g/dL [facility] RDW CV 16.9(H) 11.1 - 14.9 % [facility] RDW SD 49.3(H) 35.7 - 48.1 fL [facility] NRBC abs 0.00 0.00 - 0.01 K/cumm [facility] Blood 12/26/2024 8:50 PM CDT 12/26/2024 11:07 PM CDT us Debra Cagle MD LAB BLOOD ORDERABLES Final R esult Performing Organization Address City/[facility]/ZIP Co de Phone Number [facility] [place] [address] * Phosphorus (12/26/2024 8:50 PM CDT) [facility] Phosphorus, pl 3.3 2.3 - 4.5 mg/dL Blood 12/26/2024 8:50 PM CDT 12/26/2024 10:40 PM CDT Debra Cagle MD LAB BLOOD ORDERABLES Final R esult Performing Organization Address [facility] Co de Phone Number [place] [address] * Magnesium (12/26/2024 8:50 PM CDT) [facility] Magnesium 1.9 1.4 - 2.5 mg/dL Blood 12/26/2024 8:50 PM CDT 12/26/2024 10:40 PM CDT Debra Cagle MD LAB BLOOD ORDERABLES Final R esult Performing Organization Address [facility] Co de Phone Number [facility] [address] * (ABNORMAL) Basic metabolic panel (12/26/2024 8:50 PM CDT) [facility] Sodium 137 135 - 145 mmol/L Potassium, pl 3.7 3.3 - 4.9 mmol/L [facility] Chloride 104 97 - 110 mmol/L [facility] CO2 27 22 - 32 mmol/L [facility] Anion gap 6 2 - 15 mmol/L [facility] BUN 9 6 - 25 mg/dL [facility] Creatinine 0.41(L) 0.60 - 1.10 mg/dL [facility] Glucose 86 70 - 199 mg/dL [facility] Comment: Interpretive Data Fasting glucose [...] 2022. Calcium 8.2(L) 8.5 - 10.3 mg/dL [facility] Blood 12/26/2024 8:50 PM CDT 12/26/2024 10:40 PM CDT us Debra Cagle MD LAB BLOOD ORDERABLES Final R esult Performing Organization Address City/[facility]/ZIP Co de Phone Number [facility] [place] [address] * Transfuse RBC (12/26/2024 4:29 PM CDT) Blood us Suzette Hunt NP BLOOD TRANSFUSION ORDERABL ES Final Result Performing Organization Address [facility]/ZIP Co de Phone Number [facility] [place] [address] * Prepare RBC: 1 Units (12/26/2024 12:09 PM CDT) Product code [id number] Unit Number [id number] [facility] Product Blood Type ANEG [facility] Dispense Status PRESUMED TRANSFUSED [facility] Blood 12/26/2024 12:0 9 PM CDT 12/26/2024 12:08 PM CDT Narrative [facility] - 12/27/2024 12:56 AM CDT Are special requirements needed? (All products are leukoreduced and CMV- safe)- >No Date required:-[id number] LRRBC # of [id number] Reasons:-Active bleeding, Hgb <8 g/dL} us Suzette Hunt NP BLOOD BANK PRODUCT ORDERAB LES Final Result [facility] [place] [address] * (ABNORMAL) Differential, auto (12/26/2024 11:09 AM CDT) Neutrophil abs 8.49(H) 1.50 - 6.50 K/cumm Imm gran abs 0.03 0.00 - 0.10 K/cumm [facility] Lymphocyte abs 0.90 0.80 - 3.30 K/cumm [facility] Monocyte abs 0.96(H) 0.20 - 0.80 K/cumm [facility] Eosinophil abs 0.07 0.00 - 0.50 K/cumm [facility] Basophil abs 0.03 0.00 - 0.10 K/cumm [facility] Neutrophil pct 80.9 % [facility] Comment: Interpretive Data Percent cell count reference ranges are not reported, since discordance with absolute values may lead to misinterpretation of CBC data. Current Interpretive Data was last revised on 2017. Imm gran pct 0.3 % [facility] Comment: Interpretive Data Percent cell count reference ranges are not reported, since discordance with absolute values may lead to misinterpretation of CBC data. Current Interpretive Data was last revised on 2017. Lymphocyte pct 8.6 % [facility] Comment: Interpretive Data Percent cell count reference ranges are not reported, since discordance with absolute values may lead to misinterpretation of CBC data. Current Interpretive Data was last revised on 2017. Monocyte pct 9.2 % [facility] Comment: Interpretive Data Percent cell count reference ranges are not reported, since discordance with absolute values may lead to misinterpretation of CBC data. Current Interpretive Data was last revised on 2017. Eosinophil pct 0.7 % [facility] Comment: Interpretive Data Percent cell count reference ranges are not reported, since discordance with absolute values may lead to misinterpretation of CBC data. Current Interpretive Data was last revised on 2017. Basophil pct 0.3 % [facility] Comment: Interpretive Data Percent cell count reference ranges are not reported, since discordance with absolute values may lead to misinterpretation of CBC data. Current Interpretive Data was last revised on 2017. Blood 12/26/2024 11:0 9 AM CDT 12/26/2024 11:22 AM CDT us Suzette Hunt NP LAB BLOOD ORDERABLES Final Result [facility] [place] [address] * (ABNORMAL) CBC with auto differential (12/26/2024 11:09 AM CDT) WBC 10.48(H) 3.80 - 9.90 K/cumm Hgb 7.9(L) 11.9 - 15.5 g/dL [facility] Hct 23.0(L) 35.6 - 45.5 % [facility] Plt 267 150 - 400 K/cumm [facility] MPV 10.4 9.1 - 12.3 fL [facility] CENTER RBC 2.80(L) 3.90 - 5.20 M/cumm [facility] MCV 82.1 81.3 - 96.4 fL [facility] MCH 28.2 27.1 - 33.3 pg [facility] MCHC 34.3 32.3 - 35.7 g/dL [facility] RDW CV 17.2(H) 11.1 - 14.9 % [facility] RDW SD 51.1(H) 35.7 - 48.1 fL [facility] NRBC abs 0.00 0.00 - 0.01 K/cumm [facility] Blood 12/26/2024 11:0 9 AM CDT 12/26/2024 11:22 AM CDT Suzette Hunt NP LAB BLOOD ORDERABLES Final Result Performing Organization Address [facility] de Phone Number [facility] [place] [address] * (ABNORMAL) CBC without differential (12/26/2024 5:59 AM CDT) [facility] WBC 9.60 3.80 - 9.90 K/cumm Hgb 8.0(L) 11.9 - 15.5 g/dL [facility] Hct 24.4(L) 35.6 - 45.5 % [facility] Plt 280 150 - 400 K/cumm [facility] MPV 10.6 9.1 - 12.3 fL [facility] RBC 2.93(L) 3.90 - 5.20 M/cumm [facility] MCV 83.3 81.3 - 96.4 fL [facility] MCH 27.3 27.1 - 33.3 pg [facility] MCHC 32.8 32.3 - 35.7 g/dL [facility] RDW CV 17.2(H) 11.1 - 14.9 % [facility] RDW SD 51.3(H) 35.7 - 48.1 fL [facility] NRBC abs 0.00 0.00 - 0.01 K/cumm [facility] Blood 12/26/2024 5:59 AM CDT 12/26/2024 6:29 AM CDT us Debra Cagle MD LAB BLOOD ORDERABLES Final R esult Performing Organization Address [facility] Co de Phone Number [facility] [place] [address] * ECG 12 lead (12/26/2024 5:36 AM CDT) Ventricular Rate EKG/Min 125 BPM [facility] Atrial Rate 125 BPM [facility] NE-Interval (MSEC) 124 ms [facility] QRS-Interval (MSEC) 76 ms [facility] QT-Interval (MSEC) 322 ms [facility] QTc 464 ms [facility] P [place] 76 degrees [facility] R [place] 64 degrees [facility] T [place] 79 degrees [facility] Diagnosis Sinus tachycardia Otherwise normal ECG No previous ECGs available Confirmed by MIREYA GODWIN M.D ([id number]) on 12/26/2024 12:49:00 PM [facility] 12/26/2024 5:36 AM CDT 12/26/2024 12:49 PM CDT us Debra Cagle MD ECG ORDERABLES Final Result [facility] * eGFR (12/25/2024 8:01 PM CDT) eGFR [...] MD LAB BLOOD ORDERABLES Final R esult [facility] [place] [address] * (ABNORMAL) CBC without differential (12/25/2024 8:01 PM CDT) Pathologist [facility] WBC 9.16 3.80 - 9.90 K/cumm Hgb 8.7(L) 11.9 - 15.5 g/dL [facility] Comment:Hemoglobin delta due to surgical procedure. Hct 25.1(L) 35.6 - 45.5 % [facility] Plt 246 150 - 400 K/cumm [facility] MPV 10.2 9.1 - 12.3 fL [facility] RBC 3.05(L) 3.90 - 5.20 M/cumm [facility] MCV 82.3 81.3 - 96.4 fL [facility] MCH 28.5 27.1 - 33.3 pg [facility] MCHC 34.7 32.3 - 35.7 g/dL [facility] RDW CV 17.0(H) 11.1 - 14.9 % [facility] RDW SD 50.4(H) 35.7 - 48.1 fL [facility] NRBC abs 0.00 0.00 - 0.01 K/cumm [facility] Blood 12/25/2024 8:01 PM CDT 12/25/2024 8:33 PM CDT Debra Cagle MD LAB BLOOD ORDERABLES Final R esult Performing Organization Address City/[facility] Co de Phone Number [facility] [address] * Phosphorus (12/25/2024 8:01 PM CDT) Pathologist [facility] Phosphorus, pl 3.4 2.3 - 4.5 mg/dL Blood 12/25/2024 8:01 PM CDT 12/25/2024 8:33 PM CDT Debra Cagle MD LAB BLOOD ORDERABLES Final R [place] [address] * Magnesium (12/25/2024 8:01 PM CDT) Pathologist [facility] Magnesium 1.5 1.4 - 2.5 mg/dL Blood 12/25/2024 8:01 PM CDT 12/25/2024 8:33 PM CDT us Dbera Cagle MD LAB BLOOD ORDERABLES Final R esult [facility] [place] [address] * (ABNORMAL) Basic metabolic panel (12/25/2024 8:01 PM CDT) Pathologist [facility] Sodium 136 135 - 145 mmol/L Potassium, pl 4.1 3.3 - 4.9 mmol/L [facility] Chloride 105 97 - 110 mmol/L [facility] CO2 25 22 - 32 mmol/L [facility] Anion gap 6 2 - 15 mmol/L [facility] BUN 10 6 - 25 mg/dL [facility] Creatinine 0.35(L) 0.60 - 1.10 mg/dL [facility] Glucose 132 70 - 199 mg/dL [facility] Comment: Interpretive Data Fasting glucose [...] 2022. Calcium 8.5 8.5 - 10.3 mg/dL [facility] Blood 12/25/2024 8:01 PM CDT 12/25/2024 8:33 PM CDT us Debra Cagle MD LAB BLOOD ORDERABLES Final R esult [facility] [place] [address] * (ABNORMAL) POC Blood Gas and Chemistries, Arterial - (12/25/2024 11:08 AM CDT) pH, Art POC 7.35 7.35 - 7.45 pCO2, Art POC 36 35 - 45 mmHg [facility] pO2, Art POC 225(H) 83 - 108 mmHg [facility] Na, POC 136 135 - 145 mmol/L [facility] K POC 3.9 3.3 - 4.9 mmol/L [facility] Comment: Interpretive Data Not all point of care methods assess for hemolysis. Confirm with instrument and retest K+ if not consistent with clinical signs and symptoms. Current Interpretive Data was last revised on 2023. Cl, POC 109 97 - 110 mmol/L [facility] Ionized Ca, POC 4.57 4.50 - 5.10 mg/dL [facility] Glucose, POC 181 70 - 199 mg/dL [facility] Lactate POC 1.3 0.7 - 2.0 mmol/L [facility] SO2 (yash) arterial 99(H) 90 - 95 % [facility] Base excess, POC -5.2 mmol/L [facility] Hct, POC 29.0(L) 36.3 - 45.3 % [facility] Total Hb, POC 9.8(L) 11.9 - 15.5 g/dL [facility] Blood 12/25/2024 11:0 8 AM CDT 12/25/2024 11:08 AM CDT us Debra Cagle MD LAB POCT ORDERABLES - DEVICE Final Result [facility] [place] [address] * Surgical pathology (12/25/2024 11:04 AM CDT) Small bowel, resection for tumor 12/25/2024 11:04 AM CDT 12/25/2024 11:25 AM CDT Narrative 12/31/2024 3:16 PM CDT EPIC results best viewed via link to PDF [facility] [place] [address] Note to Patients: This report may contain [...] Gender: F : 1960 (Age: 64) Address: [address] [place] [address] Hospital #: [id number] Taken:12/25/2024 Received:12/25/2024 Reported: 12/31/2024 Patient Type: [facility] Inpatient Service: Surgery Location: [place] [address] Physician(s): MD Estephanie Boswell MD David Yablonsky, Diagnosis: A. 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 [employer] sections are submitted as follows: A1 = [...] distal tip (entire appendix submitted); A8-12 = phone representative tagged small bowel mass including closest approach to serosa and black inked radial margin; A13-A14 = phone representative larger mesenteric nodule perpendicular to black [...] from 0.1 cm up to 1.0 cm. [employer] sections are submitted in C1-5. Jar 2. D. Designated additional small bowel and colon is an apparent short segment of small bowel (4.5 cm in length, 3.5 cm in diameter) with an adjacent apparent short segment of colon up to 4.5 cm in length and 4 cm in diameter. The bowel and colon are connected with an apparent [id number] anastomosis with embedded blue sutures and yves. [...] apparent colon margin, en face; D4 = phone representative anastomosis. Jar 2. sxv/12/26/2024 11:34 PA(s): Bernardo Cash MS, PA ([facility])CM CANCER CASE SUMMARY FOR NEUROENDOCRINE TUMORS OF [...] Surgical Pathology and Flow Cytometry Departments at [facility] as part of an ongoing software quality test engineer program and in compliance with federally mandated [...] Surgical Pathology and Flow Cytometry Departments of [facility]. It has not been cleared or approved by the U. S. Food and Drug Administration. IMAGES AND SCANNED DOCUMENTS, IF INCLUDED, ONLY VIEWABLE IN PDF VERSION OF REPORT us Debra Cagle MD LAB PATHOLOGY ORDERABLES Fin al Result * Cytology (12/25/2024 10:09 AM CDT) Fluid (Peritoneal (Cytology)) 12/25/2024 10:[address] [facility] - 12/26/2024 4:55 PM CDT EPIC results best viewed via link to PDF [facility]jo Rordiguez [facility] [place] [address] Note to Patients: This report may contain [...] Gender: F : 1960 (Age: 64) Address: [address] [place], [place] [id number] Hospital #: [id number] Taken:12/25/2024 Received:12/25/2024 Reported: 12/26/2024 Patient Type: [facility] Inpatient Service: Surgery Location: [place] [address] Physician(s): MD David Boswell DO FINAL DIAGNOSIS [...] Surgical Pathology and Flow Cytometry Departments at [facility] as part of an ongoing software quality test engineer program and in compliance with federally mandated [...] Surgical Pathology and Flow Cytometry Departments of [facility]. It has not been cleared or approved by the U. S. Food and Drug Administration. us Debra Cagle MD LAB CYTOLOGY ORDERABLES Sunitha l Result PATHOLOGY [facility] 3rd Floor [place], [place] [phone] * NE AN PROCEDURE PLACEHOLDER (12/25/2024 9:56 AM CDT) Leonarda Hernandez CRNA - 12/25/2024 9:56 AM CDT Leonarda [...] MD ANESTHESIA ORDERABLES Sunitha l Result * NE AN PROCEDURE PLACEHOLDER (12/25/2024 9:55 AM CDT) Leonarda Hernandez CRNA - 12/25/2024 9:55 AM CDT Leonarda Benito CRNA 12/25/2024 9:56 AM Peripheral IV Catheter Patient location: OR Staff: Placed by: VICE PRESIDENT LENDING: Leonarda Benito CRNA Preprocedure prep: Prep solution: chlorhexadine PPE: gloves and provider hat/mask PIV line: Laterality: left Site: wrist Catheter size: 16 g Technique: direct visualization Procedure details: good blood return and occlusive dressing applied Number of attempts: 1 Assessment: Events: patient tolerated procedure well with no complications Te Wilson MD ANESTHESIA ORDERABLES Sunitha l Result * NE AN ELECTIVE ENDOTRACHEAL AIRWAY, NE AN PROCEDURE PLACEHOLDER (12/25/2024 9:53 AM CDT) Narrative Leonarda Benito CRNA - 12/25/2024 9:53 AM CDT Leonarda Benito CRNA 12/25/2024 9:55 AM Airway Patient location: OR Urgency: elective Date/time: 12/25/2024 9:29 AM Indications for airway management: anesthesia Difficult airway: no Staff: Supervising provider: Te Wilson MD Placed by: VICE PRESIDENT LENDING: Leonarda Benito CRNA Emergent airway documentation: Risks [...] Lips and dentition unchanged from preop assessment Te Wilson MD ANESTHESIA ORDERABLES Sunitha l [...] MD LAB BLOOD ORDERABLES Final R esult [facility] [place] [address] * (ABNORMAL) Differential, auto (12/25/2024 8:18 AM CDT) Neutrophil abs 6.49 1.50 - 6.50 K/cumm Imm gran abs 0.05 0.00 - 0.10 K/cumm [facility] Lymphocyte abs 0.96 0.80 - 3.30 K/cumm [facility] Monocyte abs 0.88(H) 0.20 - 0.80 K[facility]cumm [facility] Eosinophil abs 0.02 0.00 - 0.50 K/cumm [facility] Basophil abs 0.04 0.00 - 0.10 K/cumm [facility] Neutrophil pct 76.9 % [facility] Comment: Interpretive Data Percent cell count reference ranges are not reported, since discordance with absolute values may lead to misinterpretation of CBC data. Current Interpretive Data was last revised on 2017. Imm gran pct 0.6 % [facility] Comment: Interpretive Data Percent cell count reference ranges are not reported, since discordance with absolute values may lead to misinterpretation of CBC data. Current Interpretive Data was last revised on 2017. Lymphocyte pct 11.4 % [facility] Comment: Interpretive Data Percent cell count reference ranges are not reported, since discordance with absolute values may lead to misinterpretation of CBC data. Current Interpretive Data was last revised on 2017. Monocyte pct 10.4 % [facility] Comment: Interpretive Data Percent cell count reference ranges are not reported, since discordance with absolute values may lead to misinterpretation of CBC data. Current Interpretive Data was last revised on 2017. Eosinophil pct 0.2 % [facility] Comment: Interpretive Data Percent cell count reference ranges are not reported, since discordance with absolute values may lead to misinterpretation of CBC data. Current Interpretive Data was last revised on 2017. Basophil pct 0.5 % [facility] Comment: Interpretive Data Percent cell count reference ranges are not reported, since discordance with absolute values may lead to misinterpretation of CBC data. Current Interpretive Data was last revised on 2017. Blood 12/25/2024 8:18 AM CDT 12/25/2024 8:27 AM CDT us Debra Cagle MD LAB BLOOD ORDERABLES Final R esult [facility] [place] [address] * (ABNORMAL) CBC with auto differential (12/25/2024 8:18 AM CDT) WBC 8.44 3.80 - 9.90 K/cumm Hgb 12.2 11.9 - 15.5 g/dL [facility] Hct 36.1 35.6 - 45.5 % [facility] Plt 365 150 - 400 K/cumm [facility] MPV 9.6 9.1 - 12.3 fL [facility] RBC 4.38 3.90 - 5.20 M/cumm [facility] MCV 82.4 81.3 - 96.4 fL [facility] MCH 27.9 27.1 - 33.3 pg [facility] MCHC 33.8 32.3 - 35.7 g/dL [facility] RDW CV 17.0(H) 11.1 - 14.9 % [facility] RDW SD 50.4(H) 35.7 - 48.1 fL [facility] NRBC abs 0.00 0.00 - 0.01 K/cumm [facility] Blood 12/25/2024 8:18 AM CDT 12/25/2024 8:27 AM CDT Debra Cagle MD LAB BLOOD ORDERABLES Final R esult Performing Organization Address [facility] de Phone Number [facility] [place] [address] * Protime-INR (12/25/2024 8:18 AM CDT) Pathologist [facility] PT 12.1 9.7 - 13.0 sec INR 1.12 0.90 - 1.20 [facility] Comment: Interpretive data Oral anticoagulant therapeutic ranges: Venous thromboembolism prophylaxis or treatment: 2.0-3.0 CARDIOLOGY Standard range: 2.0-3.0 High-intensity range: 2.5-3.5 Refer to indication-specific guidelines for appropriate target ranges for prosthetic heart valve replacement. Current interpretive data was last revised on 2019. Blood 12/25/2024 8:18 AM CDT 12/25/2024 8:28 AM CDT Debra Cagle MD LAB BLOOD ORDERABLES Final R esult Performing Organization Address [facility] de Phone Number [facility] [place] [address] * (ABNORMAL) Comprehensive metabolic panel (12/25/2024 8:18 AM CDT) Pathologist [facility] Sodium 138 135 - 145 mmol/L Potassium, pl 4.5 3.3 - 4.9 mmol/L [facility] Chloride 104 97 - 110 mmol/L [facility] CO2 24 22 - 32 mmol/L [facility] Anion gap 10 2 - 15 mmol/L [facility] BUN 19 6 - 25 mg/dL [facility] Creatinine 0.38(L) 0.60 - 1.10 mg/dL [facility] Glucose 155 70 - 199 mg/dL [facility] Comment: Interpretive Data Fasting glucose [...] 2022. Calcium 8.9 8.5 - 10.3 mg/dL [facility] Bilirubin, total 0.4 0.1 - 1.2 mg/dL [facility] Protein, pl 6.6 6.5 - 8.5 g/dL [facility] Albumin 3.4(L) 3.5 - 5.0 g/dL [facility] Alk phos 99 40 - 130 Units/L [facility] ALT 108(H) 7 - 45 Units/L [facility] AST 72(H) 10 - 45 Units/L [facility] Blood 12/25/2024 8:18 AM CDT 12/25/2024 8:27 AM CDT us Debra Cagle MD LAB BLOOD ORDERABLES Final R esult [facility] [place] [address] * TYPE AND SCREEN 14 DAY (12/21/2024 2:31 PM CDT) Myra, indirect Negative ABO Rh A Negative [facility] Blood 12/21/2024 2:31 PM CDT 12/21/2024 2:53 PM CDT Narrative [facility] - 12/21/2024 3:55 PM CDT [...] ORDERA BLES Final Result Performing Organization Address City/[facility] Co de Phone Number [facility] [place] [address] * (ABNORMAL) POCT glucose (12/19/2024 8:06 AM CDT) Glucose, POC 219(H) 70 - 199 mg/dL Blood 12/19/2024 8:06 AM CDT 12/19/2024 8:06 AM CDT us Debra Cagle MD LAB POCT ORDERABLES - DEVICE Final Result Performing Organization Address [facility] de Phone Number [facility] [place] [address] * eGFR (12/19/2024 6:14 AM CDT) eGFR [...] 6:14 AM CDT 12/19/2024 6:22 AM CDT Debra Cagle MD LAB BLOOD ORDERABLES Final R esult Performing Organization Address [facility] Co de Phone Number [facility] [place] [address] * Phosphorus (12/19/2024 6:14 AM CDT) Pathologist [facility] Phosphorus, pl 3.5 2.3 - 4.5 mg/dL Blood 12/19/2024 6:14 AM CDT 12/19/2024 6:22 AM CDT Estephanie Goldstein MD LAB BLOOD ORDERABLES Fi nal Result Performing Organization Address [facility] de Phone [place] [facility] [place] [address] * Magnesium (12/19/2024 6:14 AM CDT) [facility] Magnesium 2.2 1.4 - 2.5 mg/dL Blood 12/19/2024 6:14 AM CDT 12/19/2024 6:22 AM CDT Estephanie Goldstein MD LAB BLOOD ORDERABLES Fi nal Result Performing Organization Address [facility] de Phone Number [facility] [place] [address] * (ABNORMAL) Basic metabolic panel (12/19/2024 6:14 AM CDT) Pathologist [facility] Sodium 136 135 - 145 mmol/L Potassium, pl 4.2 3.3 - 4.9 mmol/L [facility] Chloride 104 97 - 110 mmol/L [facility] CO2 26 22 - 32 mmol/L [facility] Anion gap 6 2 - 15 mmol/L [facility] BUN 17 6 - 25 mg/dL [facility] Creatinine 0.39(L) 0.60 - 1.10 mg/dL [facility] Glucose 178 70 - 199 mg/dL [facility] Comment: Interpretive Data Fasting glucose [...] 2022. Calcium 8.2(L) 8.5 - 10.3 mg/dL [facility] Blood 12/19/2024 6:14 AM CDT 12/19/2024 6:22 AM CDT Debra Cagle MD LAB BLOOD ORDERABLES Final R esult Performing Organization Address City/[facility]/ZIP Co de Phone Number [facility] [place] [address] * (ABNORMAL) POCT glucose (12/19/2024 4:05 AM CDT) Glucose, POC 234(H) 70 - 199 mg/dL Blood 12/19/2024 4:05 AM CDT 12/19/2024 4:05 AM CDT Debra Cagle MD LAB POCT ORDERABLES - DEVICE Final Result [facility] [place] [address] * POCT glucose (12/18/2024 11:19 PM CDT) Glucose, POC 114 70 - 199 mg/dL Blood 12/18/2024 11:1 9 PM CDT 12/18/2024 11:19 PM CDT us Debra Cagle MD LAB POCT ORDERABLES - DEVICE Final Result Performing Organization Address [facility] Co de Phone Number [facility] [place] [address] * POCT glucose (12/18/2024 7:51 PM CDT) Glucose, POC 97 70 - 199 mg/dL Blood 12/18/2024 7:51 PM CDT 12/18/2024 7:51 PM CDT us Debra Cagle MD LAB POCT ORDERABLES - DEVICE Final Result Performing Organization Address [facility] de Phone Number [facility] [address] * POCT glucose (12/18/2024 4:19 PM CDT) Glucose, POC 107 70 - 199 mg/dL Blood 12/18/2024 4:19 PM CDT 12/18/2024 4:19 PM CDT us Debra Cagle MD LAB POCT ORDERABLES - DEVICE Final Result Performing Organization Address [facility] de Phone Number [facility] [place] [address] * (ABNORMAL) POCT glucose (12/18/2024 11:48 AM CDT) Glucose, POC 247(H) 70 - 199 mg/dL Blood 12/18/2024 11:4 8 AM CDT 12/18/2024 11:48 AM CDT us Debra Cagle MD LAB POCT ORDERABLES - DEVICE Final Result Performing Organization Address [facility] Co de Phone Number [facility] [place] [address] * eGFR (12/18/2024 5:31 AM CDT) eGFR [...] MD LAB BLOOD ORDERABLES Final R esult [facility] [place] [address] * Phosphorus (12/18/2024 5:31 AM CDT) Phosphorus, pl 3.0 2.3 - 4.5 mg/dL Blood 12/18/2024 5:31 AM CDT 12/18/2024 5:49 AM CDT us Estephanie Goldstein MD LAB BLOOD ORDERABLES Fi nal Result [facility] [place] [address] * Magnesium (12/18/2024 5:31 AM CDT) Pathologist [facility] Magnesium 2.2 1.4 - 2.5 mg/dL Blood 12/18/2024 5:31 AM CDT 12/18/2024 5:49 AM CDT Estephanie Goldstein MD LAB BLOOD ORDERABLES Fi nal Result [facility] [place] [address] * (ABNORMAL) Basic metabolic panel (12/18/2024 5:31 AM CDT) [facility] Sodium 136 135 - 145 mmol/L Potassium, pl 4.4 3.3 - 4.9 mmol/L [facility] Chloride 104 97 - 110 mmol/L [facility] CO2 26 22 - 32 mmol/L [facility] Anion gap 6 2 - 15 mmol/L [facility] BUN 18 6 - 25 mg/dL [facility] Creatinine 0.42(L) 0.60 - 1.10 mg/dL [facility] Glucose 186 70 - 199 mg/dL [facility] Comment: Interpretive Data Fasting glucose [...] 2022. Calcium 8.2(L) 8.5 - 10.3 mg/dL [facility] Blood 12/18/2024 5:31 AM CDT 12/18/2024 5:49 AM CDT us Debra Cagle MD LAB BLOOD ORDERABLES Final R esult [facility] [place] [address] * Small Bowel Challenge 10 hour Post [...] Misha Augustine M.D., Ph.D us Suzette Hunt GOLF [employer]UD RIVETER IMG XR PROCEDURES Final Re sult * POCT glucose (12/17/2024 11:17 PM CDT) Glucose, POC 123 70 - 199 mg/dL Blood 12/17/2024 11:1 7 PM CDT 12/17/2024 11:17 PM CDT us Debra Cagle MD LAB POCT ORDERABLES - DEVICE Final Result Performing Organization Address City/State/[facility] Co ny Phone Number [facility] [place] [address] * Small Bowel Challenge 4 hour Post [...] Misha Augustine M.D., Ph.D us Suzette Hunt [employer] IMG XR PROCEDURES Final Re sult * POCT glucose (12/17/2024 5:56 PM CDT) Glucose, POC 137 70 - 199 mg/dL Blood 12/17/2024 5:56 PM CDT 12/17/2024 5:56 PM CDT us Debra Cagle MD LAB POCT ORDERABLES - DEVICE Final Result [facility] [place] [address] * XR Abdomen 1 View AP (12/17/2024 [...] LAB POCT ORDERABLES - DEVICE Final Result [facility] [place] [address] * POCT glucose (12/17/2024 5:37 AM CDT) Glucose, POC 179 70 - 199 mg/dL Blood 12/17/2024 5:37 AM CDT 12/17/2024 5:37 AM CDT Debra Cagle MD LAB POCT ORDERABLES - DEVICE Final Result Performing Organization Address [facility] de Phone Number [facility] [address] * eGFR (12/17/2024 5:35 AM CDT) eGFR [...] ORDERABLES Final R esult Performing Organization Address [facility] Co de Phone Number [facility] [address] * Phosphorus (12/17/2024 5:35 AM CDT) [facility] Phosphorus, pl 3.6 2.3 - 4.5 mg/dL Blood 12/17/2024 5:35 AM CDT 12/17/2024 5:55 AM CDT Estephanie Goldstein MD LAB BLOOD ORDERABLES Fi nal Result Performing Organization Address City/[facility]/ZIP Co de Phone Number [facility] [place] [address] * Magnesium (12/17/2024 5:35 AM CDT) [facility] Magnesium 2.3 1.4 - 2.5 mg/dL Blood 12/17/2024 5:35 AM CDT 12/17/2024 5:55 AM CDT Estephanie Goldstein MD LAB BLOOD ORDERABLES Fi nal Result Performing Organization Address [facility] de Phone Number [facility] [address] * (ABNORMAL) Basic metabolic panel (12/17/2024 5:35 AM CDT) [facility] Sodium 135 135 - 145 mmol/L Potassium, pl 4.5 3.3 - 4.9 mmol/L [facility] Chloride 103 97 - 110 mmol/L [facility] CO2 25 22 - 32 mmol/L [facility] Anion gap 7 2 - 15 mmol/L [facility] BUN 19 6 - 25 mg/dL [facility] Creatinine 0.40(L) 0.60 - 1.10 mg/dL [facility] Glucose 190 70 - 199 mg/dL [facility] Comment: Interpretive Data Fasting glucose [...] 2022. Calcium 8.1(L) 8.5 - 10.3 mg/dL [facility] Blood 12/17/2024 5:35 AM CDT 12/17/2024 5:55 AM CDT Debra Cagle MD LAB BLOOD ORDERABLES Final R esult Performing Organization Address City/[facility] Co de Phone Number [facility] [place] [address] * POCT glucose (12/16/2024 11:14 PM CDT) Glucose, POC 112 70 - 199 mg/dL Blood 12/16/2024 11:1 4 PM CDT 12/16/2024 11:14 PM CDT us Debra Cagle MD LAB POCT ORDERABLES - DEVICE Final Result Performing Organization Address [facility] Co de Phone Number [facility] [place] [address] * POCT glucose (12/16/2024 5:02 PM CDT) Glucose, POC 125 70 - 199 mg/dL Blood 12/16/2024 5:02 PM CDT 12/16/2024 5:02 PM CDT us Debra Cagle MD LAB POCT ORDERABLES - DEVICE Final Result Performing Organization Address City/[facility] Co de Phone Number [facility] [address] * POCT glucose (12/16/2024 11:12 AM CDT) Pathologist [facility] Glucose, POC 157 70 - 199 mg/dL Blood 12/16/2024 11:1 2 AM CDT 12/16/2024 11:12 AM CDT Debra Cagle MD LAB POCT ORDERABLES - DEVICE Final Result Performing Organization Address [facility] de Phone Number [facility] [place] [address] * Potassium, whole blood (12/16/2024 9:01 AM CDT) [facility] Potassium, bld 4.6 3.3 - 4.9 mmol/L Blood 12/16/2024 9:01 AM CDT 12/16/2024 9:11 AM CDT Debra Cagle MD LAB BLOOD ORDERABLES Final R esult Performing Organization Address [facility] de Phone Number [facility] [place] [address] * POCT glucose (12/16/2024 5:48 AM CDT) [facility] Glucose, POC 128 70 - 199 mg/dL Blood 12/16/2024 5:48 AM CDT 12/16/2024 5:48 AM CDT us Debra Cagle MD LAB POCT ORDERABLES - DEVICE Final Result Performing Organization Address [facility] de Phone Number [facility] [place] [address] * eGFR (12/16/2024 5:44 AM CDT) [facility] eGFR >90 >=60 mL/min/1. 73 [...] ORDERABLES Final R esult Performing Organization Address City/[facility]/ZIP Co de Phone Number [facility] [place] [address] * Phosphorus (12/16/2024 5:44 AM CDT) Phosphorus, pl 3.8 2.3 - 4.5 mg/dL Blood 12/16/2024 5:44 AM CDT 12/16/2024 6:11 AM CDT Estephanie Goldstein MD LAB BLOOD ORDERABLES Fi nal Result [facility] [place] [address] * Magnesium (12/16/2024 5:44 AM CDT) Magnesium 2.4 1.4 - 2.5 mg/dL Blood 12/16/2024 5:44 AM CDT 12/16/2024 6:11 AM CDT Estephanie Goldstein MD LAB BLOOD ORDERABLES Fi nal Result Performing Organization Address City/[facility]/ZIP Co de Phone Number [facility] [place] [address] * (ABNORMAL) Basic metabolic panel (12/16/2024 5:44 AM CDT) Sodium 136 135 - 145 mmol/L Potassium, pl 5.2(H) 3.3 - 4.9 mmol/L [facility] Comment:Hemolyzed; Potassium value may be falsely elevated by as much as 0.3-0.5 mmol/L. Suggest redraw and reanalysis. Chloride 104 97 - 110 mmol/L [facility] CO2 27 22 - 32 mmol/L [facility] Anion gap 5 2 - 15 mmol/L [facility] BUN 14 6 - 25 mg/dL [facility] Creatinine 0.42(L) 0.60 - 1.10 mg/dL [facility] Glucose 126 70 - 199 mg/dL [facility] Comment: Interpretive Data Fasting glucose [...] 2022. Calcium 8.5 8.5 - 10.3 mg/dL [facility] Blood 12/16/2024 5:44 AM CDT 12/16/2024 6:11 AM CDT us Debra Cagle MD LAB BLOOD ORDERABLES Final R esult Performing Organization Address [facility]/ZIP Co de Phone Number [facility] [place] [address] * POCT glucose (12/15/2024 11:17 PM CDT) Glucose, POC 129 70 - 199 mg/dL Blood 12/15/2024 11:1 7 PM CDT 12/15/2024 11:17 PM CDT us Debra Cagle MD LAB POCT ORDERABLES - DEVICE Final Result Performing Organization Address City/[facility] Co de Phone Number [facility] [place] [address] * POCT glucose (12/15/2024 5:24 PM CDT) Glucose, POC 136 70 - 199 mg/dL Blood 12/15/2024 5:24 PM CDT 12/15/2024 5:24 PM CDT Debra Cagle MD LAB POCT ORDERABLES - DEVICE Final Result Performing Organization Address [facility] Co de Phone Number [facility] [place] [address] * POCT glucose (12/15/2024 12:01 PM CDT) Glucose, POC 142 70 - 199 mg/dL Blood 12/15/2024 12:0 1 PM CDT 12/15/2024 12:01 PM CDT us Debra Cagle MD LAB POCT ORDERABLES - DEVICE Final Result Performing Organization Address City/[facility] Co de Phone Number [facility] [place] [address] * POCT glucose (12/15/2024 5:30 AM CDT) Glucose, POC 132 70 - 199 mg/dL Blood 12/15/2024 5:30 AM CDT 12/15/2024 5:30 AM CDT Debra Cagle MD LAB POCT ORDERABLES - DEVICE Final Result Performing Organization Address City/[facility] Co de Phone Number [facility] [place] [address] * eGFR (12/15/2024 5:29 AM CDT) eGFR [...] ORDERABLES Final R esult Performing Organization Address City/[facility]/ZIP Co de Phone Number [facility] [place] [address] * Phosphorus (12/15/2024 5:29 AM CDT) Phosphorus, pl 3.2 2.3 - 4.5 mg/dL Blood 12/15/2024 5:29 AM CDT 12/15/2024 5:57 AM CDT us Estephanie Goldstein MD LAB BLOOD ORDERABLES Fi nal Result Performing Organization Address City/[facility]/ZIP Co de Phone Number [facility] [place] [address] * Magnesium (12/15/2024 5:29 AM CDT) Pathologist [facility] Magnesium 2.2 1.4 - 2.5 mg/dL Blood 12/15/2024 5:29 AM CDT 12/15/2024 5:57 AM CDT Estephanie Goldstein MD LAB BLOOD ORDERABLES Fi nal Result Performing Organization Address [facility] de Phone Number [facility] [place] [address] * (ABNORMAL) Basic metabolic panel (12/15/2024 5:29 AM CDT) [facility] Sodium 138 135 - 145 mmol/L Potassium, pl 4.5 3.3 - 4.9 mmol/L [facility] Chloride 104 97 - 110 mmol/L [facility] CO2 29 22 - 32 mmol/L [facility] Anion gap 5 2 - 15 mmol/L [facility] BUN 10 6 - 25 mg/dL [facility] Creatinine 0.46(L) 0.60 - 1.10 mg/dL [facility] Glucose 130 70 - 199 mg/dL [facility] Comment: Interpretive Data Fasting glucose [...] 2022. Calcium 8.4(L) 8.5 - 10.3 mg/dL [facility] Blood 12/15/2024 5:29 AM CDT 12/15/2024 5:57 AM CDT us Debra Cagle MD LAB BLOOD ORDERABLES Final R esult Performing Organization Address City/[facility] Co de Phone Number [place] [address] * POCT glucose (12/14/2024 11:26 PM CDT) Glucose, POC 119 70 - 199 mg/dL Blood 12/14/2024 11:2 6 PM CDT 12/14/2024 11:26 PM CDT Debra Cagle MD LAB POCT ORDERABLES - DEVICE Final Result Performing Organization Address City/[facility] Co de Phone Number [facility] [place] [address] * POCT glucose (12/14/2024 5:01 PM CDT) Glucose, POC 127 70 - 199 mg/dL Blood 12/14/2024 5:01 PM CDT 12/14/2024 5:01 PM CDT Debra Cagle MD LAB POCT ORDERABLES - DEVICE Final Result Performing Organization Address City/[facility] Co de Phone Number [facility] [place] [address] * POCT glucose (12/14/2024 12:51 PM CDT) Glucose, POC 143 70 - 199 mg/dL Blood 12/14/2024 12:5 1 PM CDT 12/14/2024 12:51 PM CDT Debra Cagle MD LAB POCT ORDERABLES - DEVICE Final Result Performing Organization Address [facility] [place] [address] * (ABNORMAL) Phosphorus (12/14/2024 8:46 AM CDT) Phosphorus, pl 7.5(H) 2.3 - 4.5 mg/dL Comment:Hemolyzed; result ma y be falsely elevated Blood 12/14/2024 8:46 AM CDT 12/14/2024 8:57 AM CDT Suzette Hunt NP LAB BLOOD ORDERABLES Final Result Performing Organization Address [facility] [place] [address] * (ABNORMAL) Magnesium (12/14/2024 8:46 AM CDT) Magnesium 3.8(H) 1.4 - 2.5 mg/dL Blood 12/14/2024 8:46 AM CDT 12/14/2024 8:57 AM CDT Suzette Hunt NP LAB BLOOD ORDERABLES Final Result Performing Organization Address [facility] [place] [address] * POCT glucose (12/14/2024 6:11 AM CDT) Glucose, POC 150 70 - 199 mg/dL Blood 12/14/2024 6:11 AM CDT 12/14/2024 6:11 AM CDT Debra Cagle MD LAB POCT ORDERABLES - DEVICE Final Result Performing Organization Address [facility]/ZIP Co de Phone Number [facility] [place] [address] * POCT glucose (12/14/2024 12:04 AM CDT) Glucose, POC 138 70 - 199 mg/dL Blood 12/14/2024 12:0 4 AM CDT 12/14/2024 12:04 AM CDT us Debra Cagle MD LAB POCT ORDERABLES - DEVICE Final Result Performing Organization Address [facility] de Phone Number [facility] [place] [address] * eGFR (12/13/2024 8:24 PM CDT) Pathologist [facility] eGFR >90 >=60 mL/min/1. 73 m2 Comment: [...] BLOOD ORDERABLES Final Result Performing Organization Address [facility] Co de Phone Number [facility] [place] [address] * Phosphorus (12/13/2024 8:24 PM CDT) [facility] Phosphorus, pl 2.9 2.3 - 4.5 mg/dL Blood 12/13/2024 8:24 PM CDT 12/13/2024 8:59 PM CDT Suzette Hunt NP LAB BLOOD ORDERABLES Final Result Performing Organization Address City/[facility]/ZIP Co de Phone Number [facility] [place] [address] * Magnesium (12/13/2024 8:24 PM CDT) [facility] Magnesium 2.4 1.4 - 2.5 mg/dL Blood 12/13/2024 8:24 PM CDT 12/13/2024 8:59 PM CDT Suzette Hunt NP LAB BLOOD ORDERABLES Final Result Performing Organization Address City/[facility] de Phone Number [facility] [place] [address] * (ABNORMAL) Comprehensive metabolic panel (12/13/2024 8:24 PM CDT) [facility] Sodium 136 135 - 145 mmol/L Potassium, pl 3.7 3.3 - 4.9 mmol/L [facility] Chloride 100 97 - 110 mmol/L [facility] CO2 27 22 - 32 mmol/L [facility] Anion gap 9 2 - 15 mmol/L [facility] BUN 11 6 - 25 mg/dL [facility] Creatinine 0.55(L) 0.60 - 1.10 mg/dL [facility] Glucose 141 70 - 199 mg/dL [facility] Comment: Interpretive Data Fasting glucose [...] Calcium 8.3(L) 8.5 - 10.3 mg/dL [facility] Bilirubin, total 0.5 0.1 - 1.2 mg/dL [facility] Protein, pl 5.6(L) 6.5 - 8.5 g/dL [facility] Albumin 3.3(L) 3.5 - 5.0 g/dL [facility] Alk phos 76 40 - 130 Units/L [facility] ALT 155(H) 7 - 45 Units/L [facility] AST 56(H) 10 - 45 Units/L [facility] Blood 12/13/2024 8:24 PM CDT 12/13/2024 8:59 PM CDT us Suzette Hunt NP LAB BLOOD ORDERABLES Final Result Performing Organization Address City/[facility]/ZIP Co de Phone Number [facility] [place] [address] * POCT glucose (12/13/2024 5:03 PM CDT) Glucose, POC 145 70 - 199 mg/dL Blood 12/13/2024 5:03 PM CDT 12/13/2024 5:03 PM CDT us Debra Cagle MD LAB POCT ORDERABLES - DEVICE Final Result Performing Organization Address [facility]/ZIP Co de Phone Number [facility] [place] [address] * POCT glucose (12/13/2024 11:06 AM CDT) Glucose, POC 165 70 - 199 mg/dL Blood 12/13/2024 11:0 6 AM CDT 12/13/2024 11:06 AM CDT us Debra Cagle MD LAB POCT ORDERABLES - DEVICE Final Result Performing Organization Address City/[facility] Co de Phone Number [facility] [address] * eGFR (12/13/2024 8:38 AM CDT) [facility] eGFR >90 >=60 mL/min/1. 73 [...] BLOOD ORDERABLES Final Result Performing Organization Address City/[facility]/ZIP Co de Phone Number [facility] [place] [address] * Phosphorus (12/13/2024 8:38 AM CDT) [facility] Phosphorus, pl 3.2 2.3 - 4.5 mg/dL Blood 12/13/2024 8:38 AM CDT 12/13/2024 9:00 AM CDT Suzette Hunt NP LAB BLOOD ORDERABLES Final Result Performing Organization Address City/[facility] Co de Phone Number [facility] [place] [address] * Magnesium (12/13/2024 8:38 AM CDT) Pathologist [facility] Magnesium 2.4 1.4 - 2.5 mg/dL Blood 12/13/2024 8:38 AM CDT 12/13/2024 9:00 AM CDT Suzette Hunt NP LAB BLOOD ORDERABLES Final Result Performing Organization Address [facility] de Phone Number [facility] [address] * (ABNORMAL) Comprehensive metabolic panel (12/13/2024 8:38 AM CDT) [facility] Sodium 136 135 - 145 mmol/L Potassium, pl 3.9 3.3 - 4.9 mmol/L [facility] Chloride 99 97 - 110 mmol/L [facility] CO2 29 22 - 32 mmol/L [facility] Anion gap 8 2 - 15 mmol/L [facility] BUN 10 6 - 25 mg/dL [facility] Creatinine 0.57(L) 0.60 - 1.10 mg/dL [facility] Glucose 141 70 - 199 mg/dL [facility] Comment: Interpretive Data Fasting glucose [...] 2022. Calcium 8.0(L) 8.5 - 10.3 mg/dL [facility] Bilirubin, total 0.6 0.1 - 1.2 mg/dL [facility] Protein, pl 5.7(L) 6.5 - 8.5 g/dL [facility] Albumin 3.2(L) 3.5 - 5.0 g/dL [facility] Alk phos 80 40 - 130 Units/L [facility] ALT 181(H) 7 - 45 Units/L [facility] AST 75(H) 10 - 45 Units/L [facility] Blood 12/13/2024 8:38 AM CDT 12/13/2024 9:00 AM CDT Suzette Hunt NP LAB BLOOD ORDERABLES Final Result Performing Organization Address City/[facility]/ZIP Co de Phone Number [facility] [place] [address] * POCT glucose (12/13/2024 6:00 AM CDT) Glucose, POC 133 70 - 199 mg/dL Blood 12/13/2024 6:00 AM CDT 12/13/2024 6:00 AM CDT Debra Cagle MD LAB POCT ORDERABLES - DEVICE Final Result [facility] [place] [address] * POCT glucose (12/13/2024 12:05 AM CDT) Glucose, POC 102 70 - 199 mg/dL Blood 12/13/2024 12:0 5 AM CDT 12/13/2024 12:05 AM CDT us Debra Cagle MD LAB POCT ORDERABLES - DEVICE Final Result Performing Organization Address [facility] Co de Phone Number [facility] [place] [address] * eGFR (12/12/2024 10:41 PM CDT) [facility] eGFR >90 >=60 mL/min/1. 73 [...] BLOOD ORDERABLES Final Result Performing Organization Address City/[facility] Co de Phone Number [facility] [place] [address] * (ABNORMAL) CBC without differential (12/12/2024 10:41 PM CDT) [facility] WBC 6.74 3.80 - 9.90 K/cumm Hgb 13.8 11.9 - 15.5 g/dL [facility] Hct 40.5 35.6 - 45.5 % [facility] Plt 236 150 - 400 K/cumm [facility] MPV 10.4 9.1 - 12.3 fL [facility] RBC 5.04 3.90 - 5.20 M/cumm [facility] MCV 80.4(L) 81.3 - 96.4 fL [facility] MCH 27.4 27.1 - 33.3 pg [facility] MCHC 34.1 32.3 - 35.7 g/dL [facility] RDW CV 15.3(H) 11.1 - 14.9 % [facility] RDW SD 43.6 35.7 - 48.1 fL [facility] NRBC abs 0.00 0.00 - 0.01 K/cumm [facility] Blood 12/12/2024 10:4 1 PM CDT 12/12/2024 11:15 PM CDT us Suzette Hunt GOL[employer] LAB BLOOD ORDERABLES Final Result [facility] [place] [address] * Triglycerides (12/12/2024 10:41 PM CDT) Triglycerides [...] BLOOD ORDERABLES Final Result Performing Organization Address [facility] Co de Phone Number [facility] [place] [address] * Phosphorus (12/12/2024 10:41 PM CDT) [facility] Phosphorus, pl 3.8 2.3 - 4.5 mg/dL Blood 12/12/2024 10:4 1 PM CDT 12/12/2024 11:13 PM CDT Suzette Hunt NP LAB BLOOD ORDERABLES Final Result Performing Organization Address [facility] Co de Phone Number [facility] [place] [address] * Magnesium (12/12/2024 10:41 PM CDT) [facility] Magnesium 2.3 1.4 - 2.5 mg/dL Blood 12/12/2024 10:4 1 PM CDT 12/12/2024 11:13 PM CDT Suzette Hunt NP LAB BLOOD ORDERABLES Final Result Performing Organization Address [facility] Co de Phone Number [facility] [place] [address] * (ABNORMAL) Comprehensive metabolic panel (12/12/2024 10:41 PM CDT) [facility] Sodium 138 135 - 145 mmol/L Potassium, pl 3.9 3.3 - 4.9 mmol/L [facility] Comment:Hemolyzed; Potassium value may be falsely elevated by as much as 0.3-0.5 mmol/L. Suggest redraw and reanalysis. Chloride 100 97 - 110 mmol/L [facility] CO2 30 22 - 32 mmol/L [facility] Anion gap 8 2 - 15 mmol/L [facility] BUN 10 6 - 25 mg/dL [facility] Creatinine 0.59(L) 0.60 - 1.10 mg/dL [facility] Glucose 78 70 - 199 mg/dL [facility] Comment: Interpretive Data Fasting glucose [...] 2022. Calcium 8.5 8.5 - 10.3 mg/dL [facility] Bilirubin, total 0.7 0.1 - 1.2 mg/dL [facility] Protein, pl 5.5(L) 6.5 - 8.5 g/dL [facility] Albumin 3.2(L) 3.5 - 5.0 g/dL [facility] Alk phos 76 40 - 130 Units/L [facility] ALT 198(H) 7 - 45 Units/L [facility] AST 100(H) 10 - 45 Units/L [facility] Comment:Hemolyzed; result ma y be falsely elevated Blood 12/12/2024 10:4 1 PM CDT 12/12/2024 11:13 PM CDT us Suzette Hunt NP LAB BLOOD ORDERABLES Final Result [facility] [place] [address] * POCT glucose (12/12/2024 6:20 PM CDT) [facility] Glucose, POC 87 70 - 199 mg/dL Blood 12/12/2024 6:20 PM CDT 12/12/2024 6:20 PM CDT us Debra Cagle MD LAB POCT ORDERABLES - DEVICE Final Result Performing Organization Address City/[facility] [place] [address] * eGFR (12/12/2024 3:12 PM CDT) eGFR [...] BLOOD ORDERABLES Final Result Performing Organization Address City/[facility] [place]/ZIP Co de Phone Number [facility] [place] [address] * Phosphorus (12/12/2024 3:12 PM CDT) Phosphorus, pl 3.8 2.3 - 4.5 mg/dL Blood 12/12/2024 3:12 PM CDT 12/12/2024 3:38 PM CDT Suzette K. Meirink GOLF STUD [employer] LAB BLOOD ORDERABLES Final Result [facility] [place] [address] * Magnesium (12/12/2024 3:12 PM CDT) [facility] Magnesium 2.3 1.4 - 2.5 mg/dL Blood 12/12/2024 3:12 PM CDT 12/12/2024 3:38 PM CDT Suzette AguileraSakshi Hunt [employer] LAB BLOOD ORDERABLES Final Result Performing Organization Address [facility] [place]/[facility] Co de Phone Number [facility] [place] [address] * (ABNORMAL) Comprehensive metabolic panel (12/12/2024 3:12 PM CDT) [facility] Sodium 138 135 - 145 mmol/L Potassium, pl 3.7 3.3 - 4.9 mmol/L [facility] Chloride 102 97 - 110 mmol/L [facility] CO2 31 22 - 32 mmol/L [facility] Anion gap 5 2 - 15 mmol/L [facility] BUN 9 6 - 25 mg/dL [facility] Creatinine 0.57(L) 0.60 - 1.10 mg/dL [facility] Glucose 84 70 - 199 mg/dL [facility] Comment: Interpretive Data Fasting glucose [...] 2022. Calcium 8.3(L) 8.5 - 10.3 mg/dL [facility] Bilirubin, total 0.8 0.1 - 1.2 mg/dL [facility] Protein, pl 5.4(L) 6.5 - 8.5 g/dL [facility] Albumin 3.1(L) 3.5 - 5.0 g/dL [facility] Alk phos 73 40 - 130 Units/L [facility] ALT 201(H) 7 - 45 Units/L [facility] AST 107(H) 10 - 45 Units/L [facility] Blood 12/12/2024 3:12 PM CDT 12/12/2024 3:38 PM CDT us Suzette Hunt NP LAB BLOOD ORDERABLES Final Result [facility] [place] [address] * eGFR (12/12/2024 11:00 AM CDT) eGFR [...] BLOOD ORDERABLES Final Result Performing Organization Address City/State/[facility] Co de Phone Number [facility] [place] [address] * (ABNORMAL) Phosphorus (12/12/2024 11:00 AM CDT) [facility] Phosphorus, pl 2.0(L) 2.3 - 4.5 mg/dL Blood 12/12/2024 11:0 0 AM CDT 12/12/2024 11:43 AM CDT Suzette Hunt NP LAB BLOOD ORDERABLES Final Result Performing Organization Address [facility] [place]/[facility] Co de Phone Number [facility] [place] [address] * Magnesium (12/12/2024 11:00 AM CDT) [facility] Magnesium 2.3 1.4 - 2.5 mg/dL Blood 12/12/2024 11:0 0 AM CDT 12/12/2024 11:43 AM CDT Suzette Hunt GOLF [employer]UD [employer]IV[employer]ER LAB BLOOD ORDERABLES Final Result Performing Organization Address [facility] [place]/[facility] de Phone Number [facility] [place] [address] * (ABNORMAL) Comprehensive metabolic panel (12/12/2024 11:00 AM CDT) [facility] Sodium 136 135 - 145 mmol/L Potassium, pl 3.6 3.3 - 4.9 mmol/L [facility] Chloride 99 97 - 110 mmol/L [facility] CO2 30 22 - 32 mmol/L [facility] Anion gap 7 2 - 15 mmol/L [facility] BUN 10 6 - 25 mg/dL [facility] Creatinine 0.53(L) 0.60 - 1.10 mg/dL [facility] Glucose 125 70 - 199 mg/dL [facility] Comment: Interpretive Data Fasting glucose [...] Calcium 7.8(L) 8.5 - 10.3 mg/dL [facility] Bilirubin, total 0.9 0.1 - 1.2 mg/dL [facility] Protein, pl 5.6(L) 6.5 - 8.5 g/dL [facility] Albumin 3.1(L) 3.5 - 5.0 g/dL [facility] Alk phos 77 40 - 130 Units/L [facility] ALT 211(H) 7 - 45 Units/L [facility] AST 121(H) 10 - 45 Units/L [facility] Blood 12/12/2024 11:0 0 AM CDT 12/12/2024 11:43 AM CDT us Suzette Hunt GOLF [employer]UD [employer] LAB BLOOD ORDERABLES Final Result Performing Organization Address City/[facility] [place]/ZIP Co de Phone Number [facility] [place] [address] * POCT glucose (12/12/2024 10:59 AM CDT) [facility] Signature Glucose, POC 121 70 - 199 mg/dL Blood 12/12/2024 10:5 9 AM CDT 12/12/2024 10:59 AM CDT us Debra Cagle MD LAB POCT ORDERABLES - DEVICE Final Result Performing Organization Address [facility] [place]/ZIP Co de Phone Number [facility] [place] [address] * (ABNORMAL) Phosphorus (12/12/2024 5:16 AM CDT) Phosphorus, pl 2.2(L) 2.3 - 4.5 mg/dL Blood 12/12/2024 5:16 AM CDT 12/12/2024 5:24 AM CDT Debra Cagle MD LAB BLOOD ORDERABLES Final R esult Performing Organization Address City/[facility] [place]/[facility] Co de Phone Number [facility] [place] [address] * Magnesium (12/12/2024 5:16 AM CDT) Pathologist [facility] Magnesium 1.8 1.4 - 2.5 mg/dL Blood 12/12/2024 5:16 AM CDT 12/12/2024 5:24 AM CDT Debra Cagle MD LAB BLOOD ORDERABLES Final R esult Performing Organization Address [facility] [place]/[facility] de Phone [place] [facility] [address] * eGFR (12/12/2024 12:25 AM CDT) Pathologist [facility] eGFR >90 >=60 mL/min/1. 73 m2 Comment: [...] Cagle MD LAB BLOOD ORDERABLES Final R [facility] Performing Organization Address [facility] [place]/[facility] Co de Phone Number [facility] [place] [address] * (ABNORMAL) Iron profile w/ IBC (12/12/2024 12:25 AM CDT) Iron 79 35 - 145 mcg/dL TIBC 147(L) 250 - 400 mcg/dL [facility] Transferrin saturation 54(H) 20 - 50 % [facility] Blood 12/12/2024 12:2 5 AM CDT 12/12/2024 12:35 AM CDT Debra Cagle MD LAB BLOOD ORDERABLES Final R [facility] Performing Organization Address [facility] [place]/[facility] de Phone Number [facility] [address] * (ABNORMAL) Copper, serum (12/12/2024 12:25 AM CDT) Copper 48(L) 77 - 206 mcg/dL [facility] Comment: ADDITIONAL INFORMATION This test was developed and its performance characteristics determined by [facility] in a manner consistent with CLIA requirements. This test has not been cleared or approved by the U.S. Food and Drug Administration. Test Performed by: [facility] - [address] [address] General Manager [employer]: James Donis Ph.D.; CLIA# [id number] Blood 12/12/2024 12:2 5 AM CDT 12/12/2024 12:35 AM CDT Debra Cagle MD LAB BLOOD ORDERABLES Final R esult Performing Organization Address [facility] [place]/[facility] de Phone Number [facility] [place] [address] [facility] * Zinc (12/12/2024 12:25 AM CDT) Zinc 76 60 - 106 mcg/dL [facility] Comment: ADDITIONAL INFORMATION This test was developed and its performance characteristics determined by [facility] in a manner consistent with CLIA requirements. This test has not been cleared or approved by the U.S. Food and Drug Administration. Test Performed by: [facility] [address] [place] [address] General Manager [employer]: James Donis Ph.D.; CLIA# [id number] Blood 12/12/2024 12:2 5 AM CDT 12/12/2024 12:35 AM CDT Debra Cagle MD LAB BLOOD ORDERABLES Final R [facility] Performing Organization Address [facility] [place]/[facility] de Phone Number [facility] [place] [address] [facility] * (ABNORMAL) Vitamin A (12/12/2024 12:25 AM CDT) Vitamin A 19.7(L) 32.5 - 78.0 mcg/dL [facility] Comment: ADDITIONAL INFORMATION This test was developed and its performance characteristics determined by [facility] in a manner consistent with CLIA requirements. This test has not been cleared or approved by the U.S. Food and Drug Administration. Test Performed by: [facility] [address] [place] [address] General Manager [employer]: James Donis Ph.D.; CLIA# [id number] Blood 12/12/2024 12:2 5 AM CDT 12/12/2024 12:35 AM CDT Debra Cagle MD LAB BLOOD ORDERABLES Final R esult Performing Organization Address City/[facility] [place]/ZIP Co de Phone Number [facility] [place] [address] [facility] * (ABNORMAL) Vitamin D 25 hydroxy (12/12/2024 12:25 AM CDT) [facility] Vitamin D 25-OH 16(L) 30 - 80 ng/mL Blood 12/12/2024 12:2 5 AM CDT 12/12/2024 12:35 AM CDT Debra Cagle MD LAB BLOOD ORDERABLES Final R esult Performing Organization Address City/[facility] [place]/[facility] Co de Phone Number [place] [address] * (ABNORMAL) CBC without differential (12/12/2024 12:25 AM CDT) [facility] WBC 6.15 3.80 - 9.90 K/cumm Hgb 13.3 11.9 - 15.5 g/dL [facility] Hct 37.7 35.6 - 45.5 % [facility] Plt 210 150 - 400 K/cumm [facility] MPV 10.1 9.1 - 12.3 fL [facility] RBC 4.76 3.90 - 5.20 M/cumm [facility] MCV 79.2(L) 81.3 - 96.4 fL [facility] MCH 27.9 27.1 - 33.3 pg [facility] MCHC 35.3 32.3 - 35.7 g/dL [facility] RDW CV 14.7 11.1 - 14.9 % [facility] RDW SD 42.5 35.7 - 48.1 fL [facility] NRBC abs 0.00 0.00 - 0.01 K/cumm [facility] Blood 12/12/2024 12:2 5 AM CDT 12/12/2024 12:35 AM CDT Debra Cagle MD LAB BLOOD ORDERABLES Final R esult Performing Organization Address [facility] [place]/[facility] de Phone Number [facility] [address] * (ABNORMAL) Vitamin B1 (12/12/2024 12:25 AM CDT) Pathologist [facility] Thiamine (Vit B1) 41(L) 70 - 180 nmol/L [facility] Comment: ADDITIONAL INFORMATION This test was developed and its performance characteristics determined by [facility] in a manner consistent with CLIA requirements. This test has not been cleared or approved by the U.S. Food and Drug Administration. Test Performed by: [place] [address] General Manager [employer]: James Donis Ph.D.; CLIA# [id number] Blood 12/12/2024 12:2 5 AM CDT 12/12/2024 12:35 AM CDT Debra Cagle MD LAB BLOOD ORDERABLES Final R esult Performing Organization Address [facility] [place] de Phone Number [place] [address] [facility] * Phosphorus (12/12/2024 12:25 AM CDT) Phosphorus, pl 2.3 2.3 - 4.5 mg/dL Blood 12/12/2024 12:2 5 AM CDT 12/12/2024 12:35 AM CDT us Debra Cagle MD LAB BLOOD ORDERABLES Final R esult Performing Organization Address [facility] [place]/[facility] Co de Phone Number [facility] [place] [address] * Magnesium (12/12/2024 12:25 AM CDT) Magnesium 1.8 1.4 - 2.5 mg/dL Blood 12/12/2024 12:2 5 AM CDT 12/12/2024 12:35 AM CDT us Debra Cagle MD LAB BLOOD ORDERABLES Final R esult Performing Organization Address [facility] [place] de Phone Number [facility] [place] [address] * Folate (12/12/2024 12:25 AM CDT) Folic acid 13.0 >=5.0 ng/mL Blood 12/12/2024 12:2 5 AM CDT 12/12/2024 12:35 AM CDT us Debra Cagle MD LAB BLOOD ORDERABLES Final R esult Performing Organization Address [facility] [place] de Phone Number [facility] [place] [address] * Vitamin B12 (12/12/2024 12:25 AM CDT) Vitamin B12 907 230 - 1,250 pg/mL Blood 12/12/2024 12:2 5 AM CDT 12/12/2024 12:35 AM CDT us Debra Cagle MD LAB BLOOD ORDERABLES Final R esult [facility] [place] [address] * (ABNORMAL) Comprehensive metabolic panel (12/12/2024 12:25 AM CDT) Sodium 136 135 - 145 mmol/L Potassium, pl 3.1(L) 3.3 - 4.9 mmol/L [facility] Chloride 98 97 - 110 mmol/L [facility] CO2 30 22 - 32 mmol/L [facility] Anion gap 8 2 - 15 mmol/L [facility] BUN 15 6 - 25 mg/dL [facility] Creatinine 0.52(L) 0.60 - 1.10 mg/dL [facility] Glucose 153 70 - 199 mg/dL [facility] Comment: Interpretive Data Fasting glucose [...] 2022. Calcium 8.0(L) 8.5 - 10.3 mg/dL [facility] Bilirubin, total 0.8 0.1 - 1.2 mg/dL [facility] Protein, pl 5.3(L) 6.5 - 8.5 g/dL [facility] Albumin 3.0(L) 3.5 - 5.0 g/dL [facility] Alk phos 72 40 - 130 Units/L [facility] ALT 202(H) 7 - 45 Units/L [facility] AST 138(H) 10 - 45 Units/L [facility] Blood 12/12/2024 12:2 5 AM CDT 12/12/2024 12:35 AM CDT us Debra Cagle MD LAB BLOOD ORDERABLES Final R esult Performing Organization Address City/[facility] [place]/[facility] Co de Phone Number [facility] [place] [address] * eGFR (12/11/2024 11:52 AM CDT) Pathologist [facility] eGFR >90 >=60 mL/min/1. 73 m2 Comment: [...] ORDERABLES Final R esult Performing Organization Address City/[facility] [place]/ZIP Co de Phone Number [facility] [place] [address] * (ABNORMAL) Differential, auto (12/11/2024 11:52 AM CDT) Pathologist [facility] Neutrophil abs 5.84 1.50 - 6.50 K/cumm Imm gran abs 0.04 0.00 - 0.10 K/cumm [facility] Lymphocyte abs 0.89 0.80 - 3.30 K/cumm [facility] Monocyte abs 0.90(H) 0.20 - 0.80 K/cumm [facility] Eosinophil abs 0.00 0.00 - 0.50 K/cumm [facility] Basophil abs 0.02 0.00 - 0.10 K/cumm [facility] Neutrophil pct 75.9 % [facility] Comment: Interpretive Data Percent cell count reference ranges are not reported, since discordance with absolute values may lead to misinterpretation of CBC data. Current Interpretive Data was last revised on 2017. Imm gran pct 0.5 % [facility] Comment: Interpretive Data Percent cell count reference ranges are not reported, since discordance with absolute values may lead to misinterpretation of CBC data. Current Interpretive Data was last revised on 2017. Lymphocyte pct 11.6 % [facility] Comment: Interpretive Data Percent cell count reference ranges are not reported, since discordance with absolute values may lead to misinterpretation of CBC data. Current Interpretive Data was last revised on 2017. Monocyte pct 11.7 % [facility] Comment: Interpretive Data Percent cell count reference ranges are not reported, since discordance with absolute values may lead to misinterpretation of CBC data. Current Interpretive Data was last revised on 2017. Eosinophil pct 0.0 % [facility] Comment: Interpretive Data Percent cell count reference ranges are not reported, since discordance with absolute values may lead to misinterpretation of CBC data. Current Interpretive Data was last revised on 2017. Basophil pct 0.3 % [facility] Comment: Interpretive Data Percent cell count reference ranges are not reported, since discordance with absolute values may lead to misinterpretation of CBC data. Current Interpretive Data was last revised on 2017. Blood 12/11/2024 11:5 2 AM CDT 12/11/2024 12:09 PM CDT us Debra Cagle MD LAB BLOOD ORDERABLES Final R esult [facility] [place] [address] * (ABNORMAL) CBC with auto differential (12/11/2024 11:52 AM CDT) WBC 7.69 3.80 - 9.90 K/cumm Hgb 15.9(H) 11.9 - 15.5 g/dL [facility] Hct 46.2(H) 35.6 - 45.5 % [facility] Plt 294 150 - 400 K/cumm [facility] MPV 9.7 9.1 - 12.3 fL [facility] RBC 5.85(H) 3.90 - 5.20 M/cumm [facility] MCV 79.0(L) 81.3 - 96.4 fL [facility] MCH 27.2 27.1 - 33.3 pg [facility] MCHC 34.4 32.3 - 35.7 g/dL [facility] RDW CV 15.0(H) 11.1 - 14.9 % [facility] RDW SD 42.6 35.7 - 48.1 fL [facility] NRBC abs 0.00 0.00 - 0.01 K/cumm [facility] Blood 12/11/2024 11:5 2 AM CDT 12/11/2024 12:09 PM CDT us Debra Cagle MD LAB BLOOD ORDERABLES Final R esult [facility] [place] [address] * (ABNORMAL) Protime-INR (12/11/2024 11:52 AM CDT) PT 13.8(H) 9.7 - 13.0 sec INR 1.27(H) 0.90 - 1.20 [facility] Comment: Interpretive data Oral anticoagulant [...] ORDERABLES Final R esult Performing Organization Address [facility] [place]/[facility] Co de Phone Number [facility] [place] [address] * Phosphorus (12/11/2024 11:52 AM CDT) [facility] Phosphorus, pl 3.5 2.3 - 4.5 mg/dL Blood 12/11/2024 11:5 2 AM CDT 12/11/2024 12:09 PM CDT us Debra Cagle MD LAB BLOOD ORDERABLES Final R esult Performing Organization Address [facility] [place]/[facility] Co de Phone Number [facility] [place] [address] * Magnesium (12/11/2024 11:52 AM CDT) [facility] Magnesium 2.1 1.4 - 2.5 mg/dL Blood 12/11/2024 11:5 2 AM CDT 12/11/2024 12:09 PM CDT Debra Cagle MD LAB BLOOD ORDERABLES Final R esult Performing Organization Address [facility] [place] de Phone Number [facility] [place] [address] * (ABNORMAL) Comprehensive metabolic panel (12/11/2024 11:52 AM CDT) [facility] Sodium 132(L) 135 - 145 mmol/L Potassium, pl 3.9 3.3 - 4.9 mmol/L [facility] Chloride 89(L) 97 - 110 mmol/L [facility] CO2 27 22 - 32 mmol/L [facility] Anion gap 16(H) 2 - 15 mmol/L [facility] BUN 22 6 - 25 mg/dL [facility] Creatinine 0.50(L) 0.60 - 1.10 mg/dL [facility] Glucose 117 70 - 199 mg/dL [facility] Comment: Interpretive Data Fasting glucose [...] 2022. Calcium 9.0 8.5 - 10.3 mg/dL [facility] Bilirubin, total 0.9 0.1 - 1.2 mg/dL [facility] Protein, pl 6.5 6.5 - 8.5 g/dL [facility] Albumin 3.6 3.5 - 5.0 g/dL [facility] Alk phos 88 40 - 130 Units/L [facility] ALT 246(H) 7 - 45 Units/L [facility] AST 172(H) 10 - 45 Units/L [facility] Blood 12/11/2024 11:5 2 AM CDT 12/11/2024 12:09 PM CDT Debra Cagle MD LAB BLOOD ORDERABLES Final R esult [facility] [place] [address] * High Risk HPV DNA Detection with Genotyping (Molecular component) (12/06/2024 1:01 PM CDT) HPV HR [address] [facility] HPV HR 18 Not Detected Not Detected [facility] HPV HR Non 16/18 Not Detected Not Detected [facility] Comment: Interpretive Data Nucleic acid [...] this test have been verified by the [facility] Molecular Infectious Disease laboratory. Correlate with separately reported cytology results, as applicable. Interpretive data last revised 22 [facility] 12/06/2024 1:01 PM CDT 12/08/2024 6:39 AM CDT Narrative [facility] - 12/10/2024 9:55 PM CDT Clinical history and diagnosis->screening Number of vials->1 Testing type->Screening Last menstrual period (date if known)->2007 Menstrual status->Postmenopausal Ana Herron MD LAB BODY FLUIDS A ND STOOLS ORDERABLES Final Result [facility] [place] [address] [facility] * Pap and High Risk HPV and Genotyping (Cytology Component) (12/06/2024 1:01 PM CDT) Thin prep (Pap test) 12/06/2024 1:01 PM CDT 12/06/2024 5:[address] [facility] - 12/14/2024 12:35 PM CDT EPIC results best viewed via link to PDF [facility] [place] [address] Note to Patients: This report may contain [...] Gender: F : 1960 (Age: 64) Address: [address] [place], [place] [id number] [facility] #: [id number] Service: FUR COMBER Location: Patient Type: [facility] SPECIMEN Taken: 12/06/2024 Received: 12/06/2024 Accessioned: 12/07/2024 [...] this test have been verified by the [facility] Molecular Infectious Disease laboratory. Correlate with reported cytology results, as applicable. Interpretive data last revised 22 [facility]/12/14/2024 12:35 KATJA Almnote(ASCP) Report Electronically Reviewed and Signed Out By KATJA Almonte(ASCP) 12/14/2024 12:35:37 Cervicovaginal Cytology (Pap Test) Disclaimer: The Pap test is a screening test used to detect cervical cancer and its precursors; it is not a diagnostic procedure. False negative and false positive results do occur. Pap test results should be interpreted in the context of pertinent clinical information and biopsy results as indicated. [facility] Clinical Laboratory Improvement Amendments (CLIA) mandate that cytologic and histologic results be correlated for laboratory nurse quality & improvement standards. FOR ALL HIGH-GRADE CASES [...] determined by the Surgical Pathology Department at [facility] as part of an ongoing software quality test engineer program and in compliance with federally mandated [...] determined by the Surgical Pathology Department of [facility]. It has not been cleared or approved by the U. S. Food and Drug Administration. Ana Herron MD LAB CYTOLOGY PAULO GONZALEZ Final Result PATHOLOGY [facility] [address] Floor [place], [place] [phone] * (ABNORMAL) Neuron specific enolase (12/05/2024 4:30 PM CDT) Neuron-specific enolase 19(H) <=15 ng/mL [facility] Comment: ADDITIONAL INFORMATION This test was developed and its performance characteristics determined by [facility] in a manner consistent with CLIA requirements. [...] a homogeneous time-resolved immunofluorescent assay manufactured by [employer] and performed on the [employer] Krypt[employer] Compact Plus. Values obtained with different assay methods or kits may be different and cannot be used interchangeably. If ordered as a tumor marker, this test result cannot be interpreted as absolute evidence for the presence or absence of malignant disease. Test Performed by: [place] [address] General Manager [employer]: James Donis Ph.D.; CLIA# [id number] Blood 12/05/2024 4:30 PM CDT 12/05/2024 5:56 PM CDT us Debra Cagle MD LAB BLOOD ORDERABLES Final R esult [facility] Department [place] [address] [facility] * eGFR (12/05/2024 4:30 PM [...] LAB BLOOD ORDERABLES Sunitha nascimento Result [facility] [place] [address] * (ABNORMAL) Chromogranin A (12/05/2024 4:30 PM CDT) Chromogranin A 286(H) <93 ng/mL [facility] Comment: Impaired renal or hepatic function or treatment with proton pump inhibitors may result in artifactual elevations of Chromogranin A. ADDITIONAL INFORMATION The testing method is a homogeneous time-resolved immunofluorescent assay manufactured by [employer] and performed on the [employer] Kryptor Compact Plus. Values obtained with different [...] examination and other findings. Test Performed by: [facility] [address] [place] [address] General Manager [employer]: James Donis Ph.D.; CLIA# [id number] Blood 12/05/2024 4:30 PM CDT 12/05/2024 6:17 PM CDT us Debra Cagle MD LAB BLOOD ORDERABLES Final R esult Performing Organization Address [facility] Co de Phone Number [facility] [place] [address] [facility] * aPTT (12/05/2024 4:30 PM CDT) aPTT 29 28 - 38 sec Comment: Interpretive Data Heparin therapeutic range: 66.0 - 100.0 seconds. Range based on correlation with therapeutic heparin activity range of 0.3 - 0.7 Units/mL. Current interpretive data was last revised on 2023. Blood Venous blood specimen / Unknown 12/05/2024 4:30 PM CDT 12/05/2024 5:02 PM CDT Denisa Robert MD LAB BLOOD ORDERABLES Final Result Performing Organization Address [facility] de Phone Number [place] [address] * Protime-INR (12/05/2024 4:30 PM CDT) PT 12.4 9.7 - 13.0 sec INR 1.14 0.90 - 1.20 [facility] Comment: Interpretive data Oral anticoagulant therapeutic ranges: Venous thromboembolism prophylaxis or treatment: 2.0-3.0 CARDIOLOGY Standard range: 2.0-3.0 High-intensity range: 2.5-3.5 Refer to indication-specific guidelines for appropriate target ranges for prosthetic heart valve replacement. Current interpretive data was last revised on 2019. Blood Venous blood specimen / Unknown 12/05/2024 4:30 PM CDT 12/05/2024 5:02 PM CDT Denisa Robert MD LAB BLOOD ORDERABLES Final Result [facility] [place] [address] * (ABNORMAL) CBC without differential (12/05/2024 4:30 PM CDT) WBC 7.93 3.80 - 9.90 K/cumm Comment:Testing performed by : [facility], [address] [place] [address] Hgb 16.3(H) 11.9 - 15.5 g/dL [facility] Comment:Testing performed by : [facility], [address] [place] [address] Hct 47.0(H) 35.6 - 45.5 % [facility] Comment:Testing performed by : [facility], [address] [place] [address] Plt 307 150 - 400 K/cumm [facility] Comment:Testing performed by : [facility], [address] [place] [address] MPV 8.1 6.8 - 10.4 fL [facility] Comment:Testing performed by : [facility], [address] [place] [address] RBC 5.92(H) 3.90 - 5.20 M/cumm [facility] Comment:Testing performed by : [facility], [address] [place] [address] MCV 79.4(L) 81.3 - 96.4 fL [facility] Comment:Testing performed by : [facility], [address] [place] [address] MCH 27.5 27.1 - 33.3 pg [facility] Comment:Testing performed by : [facility], [address] [place] [phone] MCHC 34.6 32.3 - 35.7 g/dL [facility] Comment:Testing performed by : [facility], [address] [place] [phone] RDW CV 15.6(H) 11.1 - 14.9 % [facility] Comment:Testing performed by : [facility], [address] [place] [phone] Blood 12/05/2024 4:30 PM CDT 12/05/2024 4:44 PM CDT Ilene JONES LAB BLOOD ORDERABLES Sunitha l Result Performing Organization Address [facility] Co de Phone Number [place] [address] * Type and screen (12/05/2024 4:30 PM CDT) Pathologist [facility] Myra, indirect Negative ABO Rh A Negative [facility] Blood Venous blood specimen / Unknown 12/05/2024 4:30 PM CDT 12/05/2024 5:00 PM CDT Narrative [facility] - 12/05/2024 6:15 PM CDT Has the patient had Daratumumab or Isatuximab in the past 6 months?->Unknown Denisa Robert MD LAB BLOOD BANK TEST ORDERA BLES Final Result Performing Organization Address [facility]/ZIP Co de Phone [place] [address] * (ABNORMAL) Serotonin serum (12/05/2024 4:30 PM CDT) Serotonin 959(H) <=230 ng/mL [facility] Comment: ADDITIONAL INFORMATION This test was developed and its performance characteristics determined by [facility] in a manner consistent with CLIA requirements. This test has not been cleared or approved by the U.S. Food and Drug Administration. Test Performed by: [facility] [address] [place] [address] General Manager [employer]: James Donis Ph.D.; CLIA# [id number] Blood 12/05/2024 4:30 PM CDT 12/05/2024 8:03 PM CDT us Debra Cagle MD LAB BLOOD ORDERABLES Final R esult Performing Organization Address City/[facility]/ZIP Co de Phone Number [facility] [place] [address] [facility] * (ABNORMAL) Prealbumin (12/05/2024 4:30 PM CDT) Pathologist [facility] Prealbumin 13.0(L) 20.0 - 40.0 mg/dL Blood 12/05/2024 4:30 PM CDT 12/05/2024 5:30 PM CDT us Denisa Robert MD LAB BLOOD ORDERABLES Final Result Performing Organization Address City/[facility]/ZIP Co de Phone Number [facility] [address] * (ABNORMAL) Comprehensive metabolic panel (12/05/2024 4:30 PM CDT) Sodium 124(L) 135 - 145 mmol/L Potassium, pl 3.8 3.3 - 4.9 mmol/L [facility] Chloride 84(L) 97 - 110 mmol/L [facility] CO2 25 22 - 32 mmol/L [facility] Anion gap 15 2 - 15 mmol/L [facility] BUN 12 6 - 25 mg/dL [facility] Creatinine 0.56(L) 0.60 - 1.10 mg/dL [facility] Glucose 101 70 - 199 mg/dL [facility] Comment: Interpretive Data Fasting glucose [...] 2022. Calcium 9.5 8.5 - 10.3 mg/dL [facility] Bilirubin, total 0.8 0.1 - 1.2 mg/dL [facility] Protein, pl 7.2 6.5 - 8.5 g/dL [facility] Albumin 4.1 3.5 - 5.0 g/dL [facility] Alk phos 103 40 - 130 Units/L [facility] ALT 334(H) 7 - 45 Units/L [facility] AST 232(H) 10 - 45 Units/L [facility] Blood 12/05/2024 4:30 PM CDT 12/05/2024 5:02 PM CDT Ilene JONES LAB BLOOD ORDERABLES Sunitha l Result [facility] [place] [address] * PET/CT Dotatate Skull to Thigh (12/04/2024 [...] -PET/CT IMAGING DATE OF STUDY: 12/04/2024 SCANNER: [employer] (SQ1). This is a high-resolution scanner, which [...] obtained. The study was interpreted on the Spontly workstation. The total scanned area was skull [...] with intense tracer activity on axial image 2022. * Numerous hepatic metastases. For example, a [...] -PET/CT IMAGING DATE OF STUDY: 12/04/2024 SCANNER: [facility] [employer] (SQ1). This is a high-resolution scanner, which [...] obtained. The study was interpreted on the Sp[employer]ly workstation. The total scanned area was skull [...] with intense tracer activity on axial image 2022. * Numerous hepatic metastases. For example, a [...] placed in formalin and submitted to the checker service for delivery to Surgical Pathology. No tract embolization was performed. The patient's skin was cleaned and dressed. The patient tolerated the entire procedure well without immediate complications. Dr. David Hernandez M.D., the attending radiologist, was present from the beginning to the end of the procedure. Dr. Thor Lorenzo MD performed the biopsy. Dr. Thor Lorenzo MD (vice president financial) was present and participated in the procedure. [...] placed in formalin and submitted to the checker service for delivery to Surgical Pathology. No tract embolization was performed. The patient's skin was cleaned and dressed. The patient tolerated the entire procedure well without immediate complications. Dr. David Hernandez M.D., the attending radiologist, was present from the beginning to the end of the procedure. Dr. Thor Lorenzo MD performed the biopsy. Dr. Thor Lorenzo MD (vice president financial) was present and participated in the procedure. [...] David Hernandez M.D. us Suzette Hunt NP [facility] [place] PROCEDURES Final Re sult * Surgical pathology (11/16/2024 12:25 PM CDT) Tissue (Omentum, Biopsy) 11/16/2024 12:[address] [facility] - 11/20/2024 2:30 PM CDT EPIC results best viewed via link to PDF [facility] Jojo Rodriguez Laboratory of Surgical Pathology [facility], [place] [address] Note to Patients: This report may contain [...] Gender: F : 1960 (Age: 64) Address: [address] [place], [place] [id number] Hospital #: [id number] Taken:11/16/2024 Received:11/16/2024 Reported: 11/20/2024 Patient Type: [facility] OP In Bed Service: UNKNOWN Location: [facility] Physician(s): SENDY Levy DO Diagnosis: A. 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 It has not been cleared or approved by the U. S. Food and Drug Administration. IMAGES AND SCANNED DOCUMENTS, IF INCLUDED, ONLY VIEWABLE IN PDF VERSION OF REPORT Suzette AleSakshi Hunt GOLF STUD RIVETER LAB PATHOLOGY ORDERABLES F inal Result PATHOLOGY [facility] [address] [facility], [place] [phone] * Protime-INR (11/06/2024 8:45 AM CDT) PT 12.1 9.7 - 13.0 sec INR 1.12 0.90 - 1.[address] [facility] Comment: Interpretive data Oral anticoagulant therapeutic ranges: Venous thromboembolism prophylaxis or treatment: 2.0-3.0 CARDIOLOGY Standard range: 2.0-3.0 High-intensity range: 2.5-3.5 Refer to indication-specific guidelines for appropriate target ranges for prosthetic heart valve replacement. Current interpretive data was last revised on 2019. Blood 11/06/2024 8:45 AM CDT 11/06/2024 9:04 AM CDT us Suzette Hunt NP LAB BLOOD ORDERABLES Final Result [facility] [place] [address] * CT Chest W Contrast (11/05/2024 12:21 [...] by: Eulogio Valle M.D. Suzette Hunt NP IM CT PROCEDURES Final Re sult * Small [...] agrees with it. Electronically signed by: Edilma aRmirez M.D. Narrative 11/06/2024 3:37 PM CDT EXAMINATION: [...] signed by: Edilma Ramirez M.D. us Debra Cagle MD IMG XR [...] ORDERABLES Final R esult Performing Organization Address City/[facility]/ZIP Co de Phone Number [facility] [place] [address] * (ABNORMAL) CBC without differential (11/04/2024 9:53 PM CDT) WBC 8.61 3.80 - 9.90 K/cumm Hgb 14.7 11.9 - 15.5 g/dL [facility] Hct 41.7 35.6 - 45.5 % [facility] Plt 255 150 - 400 K/cumm [facility] MPV 10.4 9.1 - 12.3 fL [facility] RBC 5.35(H) 3.90 - 5.20 M/cumm [facility] MCV 77.9(L) 81.3 - 96.4 fL [facility] MCH 27.5 27.1 - 33.3 pg [facility] MCHC 35.3 32.3 - 35.7 g/dL [facility] RDW CV 13.2 11.1 - 14.9 % [facility] RDW SD 37.5 35.7 - 48.1 fL [facility] NRBC abs 0.00 0.00 - 0.01 K/cumm [facility] Blood 11/04/2024 9:53 PM CDT 11/04/2024 10:01 PM CDT us Debra Cagle MD LAB BLOOD ORDERABLES Final R esult [facility] [place] [address] * Phosphorus (11/04/2024 9:53 PM CDT) [facility] Phosphorus, pl 3.4 2.3 - 4.5 mg/dL Blood 11/04/2024 9:53 PM CDT 11/04/2024 10:01 PM CDT Debra Cagle MD LAB BLOOD ORDERABLES Final R esult Performing Organization Address City/State/[facility] [place] [address] * Magnesium (11/04/2024 9:53 PM CDT) [facility] Magnesium 1.8 1.4 - 2.5 mg/dL Blood 11/04/2024 9:53 PM CDT 11/04/2024 10:01 PM CDT Debra Cagle MD LAB BLOOD ORDERABLES Final R esult [facility] [place] [address] * (ABNORMAL) Comprehensive metabolic panel (11/04/2024 9:53 PM CDT) [facility] Sodium 144 135 - 145 mmol/L Potassium, pl 3.4 3.3 - 4.9 mmol/L [facility] Chloride 102 97 - 110 mmol/L [facility] CO2 26 22 - 32 mmol/L [facility] Anion gap 16(H) 2 - 15 mmol/L [facility] BUN 7 6 - 25 mg/dL [facility] Creatinine 0.57(L) 0.60 - 1.10 mg/dL [facility] Glucose 76 70 - 199 mg/dL [facility] Comment: Interpretive Data Fasting glucose [...] 2022. Calcium 9.2 8.5 - 10.3 mg/dL [facility] Bilirubin, total 0.6 0.1 - 1.2 mg/dL [facility] Protein, pl 6.8 6.5 - 8.5 g/dL [facility] Comment:Repeated and Verifie d Albumin 4.0 3.5 - 5.0 g/dL [facility] Comment:Repeated and Verifie d Alk phos 60 40 - 130 Units/L [facility] ALT 51(H) 7 - 45 Units/L [facility] AST 50(H) 10 - 45 Units/L [facility] Blood 11/04/2024 9:53 PM CDT 11/04/2024 10:01 PM CDT us Debra Cagle MD LAB BLOOD ORDERABLES Final R esult [facility] [place] [address] * Small Bowel Challenge 10 hour Post [...] Check Sample (11/04/2024 9:26 AM CDT) Pathologist [facility] ABO Rh A Negative [facility] HCLL OTHER 11/04/2024 9:26 AM CDT 11/04/2024 9:35 AM CDT Debra Cagle MD LAB BLOOD ORDERABLES Final R esult [facility] Department [place] [address] [facility] * Inhibin A and B (11/04/2024 9:26 AM CDT) Inhibin A <5.0 pg/mL [facility] Comment: REFERENCE VALUE <98 (Premenopausal) <5.0 (Postmenopausal) ADDITIONAL INFORMATION This test has been modified from the inside account executive's instructions. Its performance characteristics were determined by [facility] in a manner consistent with CLIA requirements. This test has not been cleared or approved by the U.S. Food and Drug Administration. The testing method is an immunoenzymatic assay manufactured by [employer]. and performed on the [employer] DxI 800. Values obtained with different assay methods or kits may be different and cannot be used interchangeably. Test results cannot be interpreted as absolute evidence for the presence or absence of malignant disease. Inhibin A values are not interpretable in females for the investigation of malignant disease. Inhibin B <10 pg/mL [facility] Comment: REFERENCE VALUE Premenopausal: <108 pg/mL (Follicular) <80 pg/mL (Luteal) Postmenopausal: <12 pg/mL ADDITIONAL INFORMATION The testing method is a manual immunoenzymatic assay manufactured by [employer]. Values obtained with different assay methods or kits may be different and cannot be used interchangeably. If this test is being ordered as a tumor marker, results cannot be interpreted as absolute evidence for the presence or absence of malignant disease. This test was developed and its performance characteristics determined by [facility] in a manner consistent with CLIA requirements. This test has not been cleared or approved by the U.S. Food and Drug Administration. Test Performed by: [facility] [place] [id number] [place] [address] General Manager [employer]: James Donis Ph.D.; CLIA# [id number] Blood 11/04/2024 9:26 AM CDT 11/04/2024 10:07 AM CDT Patsy Young MD LAB BLOOD ORDERABLES Final Result Performing Organization Address [facility] Co de Phone Number [facility] [place] [address] [place] [facility] * Cancer antigen 19-9 (11/04/2024 [...] BLOOD ORDERABLES Final Result Performing Organization Address [facility] de Phone Number [place] [address] * Tporn-1-[id number], Tumor Marker (11/04/2024 9:26 AM CDT) alpha [...] et al. J. Ped Surg 1978;13:155-156 Rin S. et al. Clin Chem Lab Med 2018;57:783-797 Rocío Driscoll et al. Clin Chem 2014;0525-6909. Current interpretive data was last revised 2022. Blood 11/04/2024 9:26 AM CDT 11/04/2024 9:37 AM CDT Result [facility] Patsy Young MD LAB BLOOD ORDERABLES Final Result Performing Organization Address City/[facility] Co de Phone Number [facility] [place] [address] * CA 125 (11/04/2024 9:26 AM CDT) CA 125 ag 19.9 0.0 - 38.1 units/mL Comment: Interpretive Data [employer] CA 125 assay procedure was used. Results from different manufacturers or methods may not be comparable. Serial testing should be performed using the same method. Blood 11/04/2024 9:26 AM CDT 11/04/2024 9:37 AM CDT Result [facility] Patsy Young MD LAB BLOOD ORDERABLES Final Result Performing Organization Address [facility] [place] [address] * hCG, blood, quantitative (11/04/2024 9:26 AM CDT) Pathologist [facility] hCG, quant <5.0 0.0 - 5.0 IUnits/L [...] BLOOD ORDERABLES Final Result Performing Organization Address City/[facility] Co de Phone Number [facility] [place] [address] * Lactate dehydrogenase (LD) (11/04/2024 9:26 AM CDT) Lactate dehydrogenase (LDH) 149 100 - 250 Units/L Blood 11/04/2024 9:26 AM CDT 11/04/2024 9:37 AM CDT Patsy Young MD LAB BLOOD ORDERABLES Final Result Performing Organization Address [facility] de Phone Number [facility] [address] * CEA (11/04/2024 9:26 AM CDT) Pathologist [facility] CEA <0.6 <=5.0 ng/mL Comment: Interpretive Data: [...] BLOOD ORDERABLES Final Result Performing Organization Address [facility] de Phone Number [facility] [place] [address] * POCT glucose (11/03/2024 8:53 PM CDT) Pathologist [facility] Glucose, POC 194 70 - 199 mg/dL Blood 11/03/2024 8:53 PM CDT 11/03/2024 8:53 PM CDT Debra Cagle MD LAB POCT ORDERABLES - DEVICE Final Result Performing Organization Address [facility] de Phone Number [place] [address] * Lactate (11/03/2024 7:33 PM CDT) Lactate 1.8 0.7 - 2.0 mmol/L Blood 11/03/2024 7:33 PM CDT 11/03/2024 7:38 PM CDT Debra Cagle MD LAB BLOOD ORDERABLES Final R esult Performing Organization Address City/[facility]/ZIP Co de Phone Number [facility] [place] [address] * eGFR (11/03/2024 7:33 PM CDT) eGFR [...] ORDERABLES Final R esult Performing Organization Address City/[facility]/ZIP Co de Phone Number [facility] [place] [address] * Protime-INR (11/03/2024 7:33 PM CDT) Pathologist [facility] PT 12.1 9.7 - 13.0 sec INR 1.12 0.90 - 1.20 [facility] Comment: Interpretive data Oral anticoagulant therapeutic ranges: Venous thromboembolism prophylaxis or treatment: 2.0-3.0 CARDIOLOGY Standard range: 2.0-3.0 High-intensity range: 2.5-3.5 Refer to indication-specific guidelines for appropriate target ranges for prosthetic heart valve replacement. Current interpretive data was last revised on 2019. Blood 11/03/2024 7:33 PM CDT 11/03/2024 7:35 PM CDT us Debra Cagle MD LAB BLOOD ORDERABLES Final R esult [facility] [place] [address] * (ABNORMAL) CBC without differential (11/03/2024 7:33 PM CDT) Pathologist [facility] WBC 7.34 3.80 - 9.90 K/cumm Hgb 12.5 11.9 - 15.5 g/dL [facility] Hct 36.5 35.6 - 45.5 % [facility] Plt 209 150 - 400 K/cumm [facility] MPV 10.8 9.1 - 12.3 fL [facility] RBC 4.57 3.90 - 5.20 M/cumm [facility] MCV 79.9(L) 81.3 - 96.4 fL [facility] MCH 27.4 27.1 - 33.3 pg [facility] MCHC 34.2 32.3 - 35.7 g/dL [facility] RDW CV 13.5 11.1 - 14.9 % [facility] RDW SD 38.6 35.7 - 48.1 fL [facility] NRBC abs 0.00 0.00 - 0.01 K/cumm [facility] Blood 11/03/2024 7:33 PM CDT 11/03/2024 7:37 PM CDT Debra Cagle MD LAB BLOOD ORDERABLES Final R esult Performing Organization Address [facility] Co de Phone Number [facility] [place] [address] * Type and screen (11/03/2024 7:33 PM CDT) ABO Rh A Negative Myra, indirect Negative [facility] Blood 11/03/2024 7:33 PM CDT 11/03/2024 7:56 PM CDT Narrative [facility] - 11/03/2024 8:52 PM CDT Has the patient had Daratumumab or Isatuximab in the past 6 months?->Unknown Debra Cagle MD LAB BLOOD BANK TEST ORDERABL ES Final Result Performing Organization Address [facility] Co de Phone Number [facility] [place] [address] * (ABNORMAL) Prealbumin (11/03/2024 7:33 PM CDT) [facility] Prealbumin 19.0(L) 20.0 - 40.0 mg/dL Blood 11/03/2024 7:33 PM CDT 11/03/2024 7:38 PM CDT Debra Cagle MD LAB BLOOD ORDERABLES Final R esult Performing Organization Address City/[facility] Co de Phone Number [facility] [place] [address] * (ABNORMAL) Phosphorus (11/03/2024 7:33 PM CDT) Phosphorus, pl 1.9(L) 2.3 - 4.5 mg/dL Blood 11/03/2024 7:33 PM CDT 11/03/2024 7:37 PM CDT us Debra Cagle MD LAB BLOOD ORDERABLES Final R esult Performing Organization Address City/[facility]/ZIP Co de Phone Number [facility] [place] [address] * (ABNORMAL) Magnesium (11/03/2024 7:33 PM CDT) [facility] Magnesium 1.0(L) 1.4 - 2.5 mg/dL Blood 11/03/2024 7:33 PM CDT 11/03/2024 7:37 PM CDT Debra Cagle MD LAB BLOOD ORDERABLES Final R esult Performing Organization Address [facility] Co de Phone Number [facility] [place] [address] * (ABNORMAL) Comprehensive metabolic panel (11/03/2024 7:33 PM CDT) [facility] Sodium 139 135 - 145 mmol/L Potassium, pl 3.6 3.3 - 4.9 mmol/L [facility] Chloride 105 97 - 110 mmol/L [facility] CO2 17(L) 22 - 32 mmol/L [facility] Anion gap 17(H) 2 - 15 mmol/L [facility] BUN 6 6 - 25 mg/dL [facility] Creatinine 0.36(L) 0.60 - 1.10 mg/dL [facility] Glucose 58(L) 70 - 199 mg/dL [facility] Comment: Interpretive Data Fasting glucose [...] 2022. Calcium 7.6(L) 8.5 - 10.3 mg/dL [facility] Bilirubin, total 0.3 0.1 - 1.2 mg/dL [facility] Protein, pl 4.2(L) 6.5 - 8.5 g/dL [facility] Albumin 2.5(L) 3.5 - 5.0 g/dL [facility] Alk phos 35(L) 40 - 130 Units/L [facility] ALT 31 7 - 45 Units/L [facility] AST 34 10 - 45 Units/L [facility] Blood 11/03/2024 7:33 PM CDT 11/03/2024 7:37 PM CDT us Debra Cagle MD LAB BLOOD ORDERABLES Final R esult [facility] [place] [address] * CT Body Outside Consult (11/03/2024 6:28 [...] images may or may not represent the kenaitze source data set and thus may contain changes that may lower the accuracy of this second-opinion interpretation. Electronically signed by: Brigida Pagan M.D. Narrative 11/03/2024 9:17 PM CDT EXAMINATION: RADIOLOGY CONSULTATION ON OUTSIDE IMAGING STUDY STUDY INITIALLY PERFORMED: 11/02/2024 at [facility]. TYPE OF STUDY: Multiple CT images of [...] IMAGING STUDY STUDY INITIALLY PERFORMED: 11/02/2024 at [facility]. TYPE OF STUDY: Multiple CT images of [...] images may or may not represent the kenaitze source data set and thus may contain changes that may lower the accuracy of this second-opinion interpretation. Electronically signed by: Brigida Pagan M.D. 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 ADVANCE DIRECTIVE 12/25/2024 8:48 AM Power of Equipment Maint Tech-Financial/Medical * Full Code (Latest Code Status on File) Date Activated Date Inactivated Comments 12/25/2024 5:01 PM 01/02/2025 3:32 PM * Full Code Date Activated Date Inactivated Comments 12/11/2024 10:52 AM 12/19/2024 3:11 PM * Full Code Date Activated Date Inactivated Comments 11/16/2024 10:42 AM 11/17/2024 4:32 AM * Full Code Date Activated Date Inactivated Comments 11/03/2024 4:09 PM 11/06/2024 5:31 PM Care Teams Main Line Assembler Relationship Specialty Start Date End Date David Marmolejo DO PCP - General Internal Medicine 01/15/21 Debra Cagle MD [address] [facility] [phone] [place] [address] PCP - Home Infusion Attending General Surgery 12/19/24 Melanie Pandya, [facility] Pharmacist Pharmacy 12/18/24
--- OUTSIDE RECORDS SUMMARY | 2025-01-18 17:17 | XMS_ITS | Encounter Summary ---
Author Organization [facility] Healthcare Address [address] [place] [address] Care Team Providers Care Machine Welt Butter Name Role Phone David Marmolejo DO Primary Care Provider [phone] Melanie Pandya [facility] Unavailable Unavailable Debra Cagle MD Unavailable [phone] Encounter Details Date Type Department Care Team (Late st Contact Info) Description 12/18/2024 Results Follow-Up Obstetrics and Gynecology Clinic [address] [facility] 3rd Floor [address] [place] [address] Ana Herron MD [address] [facility] [address] [place] [address] Pap and High Risk HPV [...] on file 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
--- OUTSIDE RECORDS SUMMARY | 2025-01-18 17:17 | XMS_ITS ---
Author Organization [facility] Address [address] [place] [address] Care Team Providers Care Project Archivist Name Role Phone David Marmolejo DO Primary Care Provider [phone] Melanie Pandya [facility] Unavailable Unavailable Debra Cagle MD Unavailable [phone] Home Infusion Status:Enrolled (Active) Start date:12/13/2024 Enrollment date:12/13/2024 Related service episodes:TPN 1800mL daily (Active) Continued Care and Services Coordination This section includes services coordinated for Home Infusion. Home Medical Care Name Services Phone [facility] Home Infusion an d Injection [phone]
--- OUTSIDE RECORDS SUMMARY | 2025-01-18 17:19 | XMS_ITS | Continuity of Care Document ---
Author Organization [facility] Address [address] [place] [address] [facility] [address] [place] [address] Phone Care Team Providers Care Bulk Receiver Name Role Phone BeenaJosé Miguel eastman Unavailable Unavailable Procedures Procedure Date Office/outpatient Visit, Est Advance Directives Directive Yes / No Effective Date File Name No Information Encounters Encounter Description Practice Location Reason(s) For Visit Diagnoses Date Provider Providers Copied on Encounter Office/outpat ient Visit, Est [facility], [address] [place], [place], [id number], [place] tel:[phone] [address] [facility] No Information [phone] Kiko José Miguel. [address] [facility] [address], [place], [address], [place]. tel:[phone] Family History Family Member Type Diagnosis Age [...]
--- NOTE | 2025-01-18 17:25 | PC.NURSE ---
Patient resting in bed and on monitor heart rate ranged from 160s-190s SVTs for approximately 3 minutes. Patient denies dizziness, lightheadedness, n/v or pain. Patient stated I just feel funny, no pain or anything. Assisted patient to do bearing down technique and blowing through straw motion. Patient's heart rate came down to 90s and 110s. Dr. Moon called and informed of episode. Order given to give 2100 Metoperol 25mg now at 1730. Metoperol 25mg given per order Heart rate 98. Patient continues to rest in bed with son at bedside. Continues to deny dizziness, lightheadedness, chest pain or n/v. Patient advised to call nurse if new or worsening systems occur. Call light in reach. Bed low and locked. Will continue to monitor. Pilar Dempsey RN
[2025-01-19] VITALS (10 sets, daily range): BP systolic 127–130; BP diastolic 66–80; PULSE 81–110; RESP 17–18; TEMP 36.6–36.7; O2SAT 98–99
[2025-01-19] MEDS: CENTRAL LINE FLUSH 10 ML IV PUSH ×2 (04:56→12:37)
[2025-01-19 05:26] LABS: Anion Gap 6 mmol/L (4-12); Blood Urea Nitrogen 9 mg/dL (7-17); Calcium 9.0 mg/dL (8.4-10.2); Carbon Dioxide 27 mmol/L (22-30); Chloride 104 mmol/L (98-107); Estimated CRCL calculation 101 ml/min; Estimated Glomerular Filt Rate > 60; Glucose 144 mg/dL (65-110); Potassium 3.3 mmol/L (3.4-5.0); Sodium 137 mmol/L (137-145); Triglycerides 127 mg/dL (<150)
--- NOTE | 2025-01-19 08:26 | PM.PNCARD ---
Progress Note: A&P Assessment and Plan (1) PSVT (paroxysmal supraventricular tachycardia): Code(s): I47.10 - Supraventricular tachycardia, unspecified Status: Acute Assessment and Plan: Change Metoprolol Succinate 25 mg BID and instructed on vagal maneuvers to restore sinus rhythm. If persistent for more than 30 minutes to go to ER. Replete potassium and start Mag Ox 400 mg daily. May d/c home from cardiology standpoint and f/u with me in 2 weeks. If she has breakthrough with this then consider ablation. (2) Essential hypertension: Code(s): I10 - Essential (primary) hypertension Status: Acute Assessment and Plan: Stable. Subjective Date/time seen: 01/19/25 08:26 Interval history: She had a couple of episodes of SVT yesterday responded to vagal maneuvers. No chest pain or sob. Exam Const: General: cooperative, healthy appearing and comfortable Orientation/consciousness: oriented to person, oriented to place and oriented to time Resp: Auscultation: clear to auscultation bilaterally, no crackles, no rales, no rhonchi and no wheezes Cardio: Rate: regular rate Rhythm: regular rhythm Heart sounds: no murmurs Peripheral pulses: dorsalis pedis present GI: GI Palp: Yes Soft to palpation and Yes Tenderness to palpation present (GI) Neuro: General: oriented to person, oriented to place and oriented to time Extrem: Right lower extremity: no edema Left lower extremity: no edema Objective Data Vital Signs Vital Signs: Vital Signs - 24 hr 01/18/25 09:01 01/18/25 10:00 01/18/25 11:50 Temperature 98.3 F Pulse Rate 96 97 85 Respiratory Rate 16 Blood Pressure 127/73 Pulse Oximetry 100 Oxygen Delivery 01/18/25 12:00 01/18/25 12:00 01/18/25 14:00 Temperature Pulse Rate 79 83 Respiratory Rate Blood Pressure Pulse Oximetry 100 Oxygen Delivery Room Air 01/18/25 16:00 01/18/25 16:00 01/18/25 16:00 Temperature 97.8 F Pulse Rate 83 86 Respiratory Rate 16 Blood Pressure 111/69 Pulse Oximetry 99 99 Oxygen Delivery Room Air 01/18/25 17:23 01/18/25 18:00 01/18/25 20:00 Temperature Pulse Rate 98 90 84 Respiratory Rate Blood Pressure Pulse Oximetry Oxygen Delivery 01/18/25 20:14 01/18/25 22:00 01/18/25 23:25 Temperature 98.6 F Pulse Rate 83 82 Respiratory Rate 16 Blood Pressure 124/68 Pulse Oximetry 100 100 Oxygen Delivery Room Air 01/18/25 23:42 01/18/25 23:54 01/19/25 00:00 Temperature 98.1 F Pulse Rate 176 H 88 84 Respiratory Rate 18 Blood Pressure 129/74 Pulse Oximetry 99 Oxygen Delivery 01/19/25 02:00 01/19/25 04:16 01/19/25 04:40 Temperature 97.9 F Pulse Rate 83 81 84 Respiratory Rate 17 Blood Pressure 127/80 Pulse Oximetry 99 Oxygen Delivery 01/19/25 06:00 01/19/25 07:28 Temperature 98.1 F Pulse Rate 84 91 Respiratory Rate 18 Blood Pressure 130/71 Pulse Oximetry 99 Oxygen Delivery Intake/Output Intake/Output: Intake & Output 01/16/25 01/17/25 01/18/25 01/19/25 23:59 23:59 23:59 23:59 Intake Total 2100 640 Balance 2100 640 Meds/Results Medications: Active Medications Generic Name Dose Route Start Last Admin Trade Name Freq PRN Reason Stop Dose Admin Acetaminophen 650 mg 01/17/25 22:23 Acetaminophen 325 Mg Tablet PO Q4H PRN Mild Pain (1-3) or Fever Enoxaparin Sodium 40 mg 01/18/25 09:00 01/18/25 09:02 Enoxaparin 40 Mg/0.4 Ml Syringe SUB-Q 40 mg DAILY KATT Administration Fluticasone Propionate 2 spray 01/18/25 09:00 01/18/25 09:01 Fluticasone Propionate 0.05% Na Spr 16 Gm Btl (*Bkc) NASAL 2 spray DAILY KATT Administration Dextrose 1,000 mls @ 50 mls/hr 01/18/25 07:00 Dextrose 10% IV CONT .Q20H PRN if PN is interrupted Multivitamins 1.25 ml/ 1,002.5 mls @ 40 mls/hr 01/18/25 09:00 01/18/25 09:08 Multivitamins 1.25 ml/ Amino IV CONT 40 mls/hr Acids/Electrolytes/Dextrose .Q24H KATT Administration Protocol Loratadine 10 mg 01/18/25 09:00 01/18/25 09:01 Loratadine 10 Mg Tablet PO 10 mg DAILY KATT Administration Metoprolol Succinate 25 mg 01/19/25 09:00 Metoprolol Succinate Ext Rel 25 Mg Tabcr PO Q12HR KATT Ondansetron HCl 4 mg 01/17/25 22:23 01/18/25 14:53 Ondansetron Inj 4 Mg/2 Ml Vial IV PUSH 4 mg Q4H PRN Administration Nausea Sodium Chloride 10 ml 01/18/25 14:00 01/19/25 04:56 Central Line Flush IV PUSH 10 ml Q8HR KATT Administration Sodium Chloride 10 ml 01/18/25 07:03 Central Line Flush IV PUSH PRN PRN with TPN bag changes Sodium Chloride 20 ml 01/18/25 07:03 Central Line Flush IV PUSH PRN PRN after blood draws Radiology Results: ITS Impressions Chest X-Ray 01/17/25 20:11 IMPRESSION: No acute cardiopulmonary process. ADDENDUM: 01/18/25 0633 Left subclavian PICC line tip in the SVC. Chest CTA 01/17/25 20:37 IMPRESSION: No CT evidence of acute pulmonary embolus. No acute process detected in the chest. Stable mild left pelviectasis/caliectasis. Labs Labs: Laboratory Results - last 24 hr 01/18/25 01/19/25 01/19/25 23:57 05:01 05:45 Sodium 137 Potassium 3.3 L Chloride 104 Carbon Dioxide 27 Anion Gap 6 BUN 9 Creatinine 0.37 L Estim Creat Clear Calc 101 Estimated GFR > 60 Glucose 144 H POC Capillary Glucose 117 H 137 H Calcium 9.0 Phosphorus 5.1 H Triglycerides 127
[2025-01-19] MEDS: METOPROLOL SUCCINATE EXT REL 25 MG TABCR PO (08:42)
[2025-01-19] MEDS: ENOXAPARIN 40 MG/0.4 ML SYRINGE SUB-Q (08:42)
[2025-01-19] MEDS: LORATADINE 10 MG TABLET PO (08:42)
[2025-01-19] MEDS: MAGNESIUM OXIDE 400 MG TABLET PO (08:42)
[2025-01-19] MEDS: FLUTICASONE PROPIONATE 0.05% NA SPR 16 GM BTL (*BKC) 2 SPRAY NASAL (08:42)
[2025-01-19] MEDS: AMINO ACIDS 5%/D15W/E-LYTES/CA 1,000 ML with MULTIVITAMINS-12 INJ VIAL 1 1.25 ML, MULTI... 40 ML IV CONT (09:19)
--- NOTE | 2025-01-19 10:55 | P.DS_ITS ---
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: Code(s): C7A.8 - Other malignant neuroendocrine tumors; C7B.8 - Other secondary neuroendocrine tumors Status: Acute (2) Neuroendocrine carcinoma metastatic to liver: Code(s): C7A.8 - Other malignant neuroendocrine tumors; C7B.8 - Other secondary neuroendocrine tumors Status: Acute (3) SVT (supraventricular tachycardia): Code(s): I47.10 - Supraventricular tachycardia, unspecified Status: Acute (4) Essential hypertension: Code(s): I10 - Essential (primary) hypertension Status: Acute DS: Summary Hospital Course Hospital Course: 64-year-old female with a pmh/o GERD, hiatal hernia metastatic neuroendocrine tumor status post partial small-bowel and large-bowel resection, essential hypertension, and protein calorie malnutrition due to recent illness on TPN who presented to the ER due to fast heart rate all day. The patient presented to the hospital in October 05 to partial small-bowel obstruction CT also demonstrated findings concerning for carcinoid tumor whether primary in the peritoneum or from the small bowel extending to peritoneum. She was transferred to [place] on 11/03/2024 and discharged on 11/06/2024. She was brought back for biopsy of omental lesion on 11/18/2024 with pathology consistent with metastatic well-differentiated neuroendocrine tumor. She had an outpatient PET scan 12/04/2024 which demonstrated widely metastatic with multiple masses in the liver, multiple mesenteric and omental masses, increased right hydronephrosis and dilated fluid filled small bowel with transition point in the right lower quadrant at the site of metastases. She continued to have abdominal pain and poor p.o. intake. She underwent small-bowel resection with partial large bowel resection on December 25 2024 at [place]. She had 100 cm of small bowel resected. She was started on TPN nightly to help with nutritional status. She has been having up to 20 frankly watery stools a day. She denies any recent fevers or chills. She reports that she has been having intermittent palpitations and episodes of tachycardia on and off for years. However today she became more concerned when her heart rate was elevated from 4 PM onwards. She went to a friend's house and used her friend's pulse oximeter which demonstrated her heart rate was quite elevated. She came into the ER and was found to have heart rate ranging between 190-200. She reports having prior unremarkable Holter monitor in July. And she had a normal echocardiogram August 2024. She denies any flushing, chest pain, lower extremity swelling, orthopnea or paroxysmal nocturnal dyspnea. In the ER she received 1 dose of adenosine, 20 mEq of potassium chloride, 1 amp of sodium bicarb and 1 dose of metoprolol succinate 25 mg and 2 L of IV fluids with resolution of SVT. Recently diagnosed metastatic neuroendocrine tumor plan to start treatment soon. Biopsy of the omental lesion on 11/18/2024 with pathology consistent with metastatic well takes differentiated neuroendocrine tumor. Outpatient PET scan 12/04/2024 demonstrated widely might metastatic with multiple masses in the liver multiple mesenteric and omental masses increased right hydronephrosis and dilated fluid-filled small bowel with transition point in the right lower quadrant at the site of metastasis Recent bowel obstruction status post partial small-bowel and large-bowel resection Protein calorie mild nutrition on TPN nightly. SVT as noted in the ED-190-200. Normal echocardiogram August of 2024. In the ED CVA adenosine 1 dose and metoprolol. SVT resolved. Cardiology consulted. Troponin x3 is negative. CTA chest with no PE or any acute process. Stable mild left pelviectasis/caliectasis Cardiology cleared her for discharge on 01/19. :Change Metoprolol Succinate 25 mg BID and instructed on vagal maneuvers to restore sinus rhythm. If persistent for more than 30 minutes to go to ER. Replete potassium and start Mag Ox 400 mg daily. May d/c home from cardiology standpoint and f/u with me in 2 weeks. If she has breakthrough with this then consider ablation. Status at Discharge Functional status at discharge: independent ambulation Overall status at discharge: patient is progressing back to baseline Time Spent with Patient Time attestation: Total time spent providing and/or coordinating discharge services: Time spent: Greater than 30 minutes Exam Narrative: GENERAL: Well-appearing, well-nourished, and in no acute distress. HEAD: Normocephalic, atraumatic. EYES: PERRLA and EOMI. ENT: Nares clear, no rhinorrhea or epistaxis. Mucous membranes moist. NECK: Supple. CHEST: Clear to auscultation. No respiratory distress. HEART: Regular rate, regular rhythm. No murmur heard. [Normal peripheral pulses. ABDOMEN: Soft, nondistended, nontender, No rigidity or guarding EXTREMITIES: Normal range of motion. No edema. Left-sided PICC line in place SKIN: Warm, dry, no rash. NEURO: no focal deficits. Alert and oriented x3. PSYCH: Normal mood and affect. Const: General: comfortable Other: Thin body habitus, no acute distress, appears stated age HENMT: Other: Mucous membranes are moist, no oral pharyngeal erythema, head is normocephalic atraumatic Eyes: Other: Pupils are equal and reactive, no conjunctival pallor, no scleral icterus Neck: Other: No JVD, no lymphadenopathy Resp: Other: Clear to auscultation bilaterally, no increased work of breathing Cardio: Other: Regular rate, regular rhythm, 2+ bilateral radial pedal pulses, no murmur, no J VD GI: Other: Mildly tender to palpation, normoactive bowel sounds, nondistended Skin: Other: No jaundice, no pallor Neuro: Other: Alert oriented x4, speech is clear, no facial asymmetry, Cranial nerves 2-12 grossly intact, normal gait, no gross motor deficits noted during examination Extrem: Other: 4/5 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 bilateral, no clubbing , cyanosis or edema Psych: Other: Appropriate mood and affect, pleasant and cooperative, judgment and insight intact DS: Data Data Completed and Pending Labs on day of discharge: Labs from last 24 hours 01/19/25 01/19/25 01/18/25 05:45 05:01 23:57 Sodium 137 Potassium 3.3 L Chloride 104 Carbon Dioxide 27 Anion Gap 6 BUN 9 Creatinine 0.37 L Estim Creat Clear Calc 101 Estimated GFR > 60 Glucose 144 H POC Capillary Glucose 137 H 117 H Calcium 9.0 Phosphorus 5.1 H Triglycerides 127 Discharge Plan Discharge Attending physician on discharge: Deshawn Whitehead Consulting providers: Raman Moon Discharging Clinician: Holli Samayoa Patient Disposition: Home Activity: october shower Diet: heart healthy Discharge Instructions: You were admitted for SVT. Cardiology saw you and following recommendations were made: Change Metoprolol Succinate 25 mg BID and instructed on vagal maneuvers to restore sinus rhythm. If persistent for more than 30 minutes to go to ER. Replete potassium and start Mag Ox 400 mg daily. May d/c home from cardiology standpoint and f/u with DR Moon in 2 weeks. Patient Instructions: Antibiotic Form, Adenosine (By injection), Supraventricular Tachycardia (GEN) Patient Language: Jordanian Stand Alone Forms: General Discharge Information Follow-up/Referrals: Shaina Lazaro, CANOPY STRINGER-C [Primary Care Provider] - 2 Weeks Raman Moon DO [Physician] - 2 Weeks Discharge Medications: New magnesium oxide 400 mg (241.3 mg magnesium) Tablet 400 mg PO DAILY Qty: 30 0RF metoprolol succinate [Toprol XL] 25 mg Tablet Extended Release 24 Hr 25 mg PO Q12HR Qty: 90 0RF potassium chloride [K-Tab] 20 mEq tablet extended release 20 meq PO DAILY Qty: 30 0RF Continued enoxaparin 40 mg/0.4 mL syringe 40 mg subcut DAILY ondansetron 4 mg tablet,disintegrating 4 mg PO Q6-8H PRN (Reason: nausea and vomiting) sumatriptan succinate [Imitrex] 25 mg tablet See Rx Instructions PO .COMPLEX PRN (Reason: migraine headache) Rx Instructions: take 1 tab at onset of headache; if no relief may repeat 1 tab after at least 2 hrs; max = 4 tabs/24 hr orally PRN; loratadine [Claritin] 10 mg tablet 10 mg PO DAILY Qty: 90 0RF fluticasone propionate 50 mcg/actuation spray,suspension 2 spray NASAL DAILY Qty: 15.8 2RF Rx Instructions: administer into each nostril Date of admission: 01/18/25 16:10 Primary Care Provider: Shaina Lazaro Admitting Provider: Monica Hook Attending physician on admission: Monica Hoko Condition: Stable Quality VTE Prophylaxis VTE prophylaxis: pharmacologic ordered (Lovenox 40 mg subQ daily.) Hospitalist MIPS Heart Failure (Exclusion) Patient has history of Heart Transplant or Left Ventricular Assistive Device?: No IF YES, STOP HERE Heart Failure (Qualifier) Patient has current or prior documentation of LVEF less than or equal to 40%, or mod/servere depressed LVSF?: No IF NO, STOP HERE
== END 2025-01-19 12:41 | disposition home or self-care (01) ==
LOC: ANHED 20:31 → ANHIMU 01-18 00:29
PROVIDERS: Admitting Provider Internal Medicine; Emergency Provider Student in an Organized Health Care Education/Training Program; PCP Clinical Nurse Specialist; Visit Provider Family Medicine
DX: I47.10 Supraventricular tachycardia, unspecified (principal); C7A.8 Other malignant neuroendocrine tumors; C7B.8 Other secondary neuroendocrine tumors; C78.7 Secondary malignant neoplasm of liver and intrahepatic bile duct; Z87.891 Personal history of nicotine dependence; K21.9 Gastro-esophageal reflux disease without esophagitis; I10 Essential (primary) hypertension; E78.49 Other hyperlipidemia; E55.9 Vitamin D deficiency, unspecified
CPT/HCPCS: 36415; 71046; 71275; 80048; 80053; 82948; 83690; 83735; 84100; 84466; 84478; 84484; 85025; 85610; 85730; 87641; 93005; 96361; 96365; 96366; 96372; 96375; 96376; 99285; A9270; G0378; J0153; J1650; J2405; J3480; J7120; Q9967

== ENCOUNTER 2025-01-30 20:12 | Emergency (ER) | payer BC, SELFPAY ==
[2025-01-30 20:19] VITALS: BP 148/87; PULSE 96; RESP 16; TEMP 36.5; O2SAT 100
--- NOTE | 2025-01-30 20:27 | ECG_ITS ---
Test Date: 2025-01-30 21:50:41 Measurements Intervals [place] Rate: 86 P: 147 [place]: 131 QRS: 14 QRSD: 84 T: 118 QT: 367 QTc: 440 Interpretive Statements ECTOPIC ATRIAL RHYTHM LEFT ATRIAL ENLARGEMENT LOW QRS VOLTAGE IN PRECORDIAL LEADS CONSIDER ANTERIOR INFARCT, AGE INDETERMINATE ST-T WAVE ABNORMALITY IN HIGH LATERAL LEADS- CONSIDER ISCHEMIA ABNORMAL ECG Compared to ECG 01/17/2025 19:27:34 SUPRAVENTRICULAR TACHYCARDIA NO LONGER PRESENT Electronically Signed On 01-31-2025 06:14:10 CDT by Raman Moon D.O.
[2025-01-30 20:50] LABS: Hematocrit 35.3 % (37.0-47.0); Hemoglobin 11.4 g/dL (12.0-15.0); Immature Granulocyte Percent A 0.3 % (0-0.5); Lymphocytes Absolute Auto 2.04 K/mm3 (0.9-3.2); Mean Corpuscular HGB Conc 32.3 g/dl (32-36); Mean Corpuscular Hemoglobin 27.7 pg (26-34); Mean Corpuscular Volume 85.7 fl (80-100); Nucleated Red Blood Cells Absolute Auto 0.000 K/mm3 (0.0-0.012); Nucleated Red Blood Cells Perc 0.0 % (0.0-0.2); Platelet Count Result 325 k/mm3 (150-375); Red Blood Count 4.12 M/mm3 (4.2-5.4); White Blood Count 10.9 K/mm3 (4.5-10.0)
[2025-01-30 20:58] LABS: Alanine Aminotransferase 151 U/L (6-35); Albumin Level 3.8 g/dL (3.5-5.1); Alkaline Phosphatase 160 U/L (38-126); Anion Gap 11 mmol/L (4-12); Aspartate Amino Transferase 113 U/L (14-36); Bilirubin,Total 0.5 mg/dL (0.2-1.3); Blood Urea Nitrogen 14 mg/dL (7-17); Calcium 9.5 mg/dL (8.4-10.2); Carbon Dioxide 20 mmol/L (22-30); Chloride 108 mmol/L (98-107); Estimated CRCL calculation 105 ml/min; Estimated Glomerular Filt Rate > 60; Glucose 117 mg/dL (65-110); Magnesium 1.8 mg/dL (1.6-2.3); Potassium 3.3 mmol/L (3.4-5.0); Sodium 139 mmol/L (137-145); Total Protein 7.1 g/dL (6.3-8.2)
[2025-01-30 21:10] LABS: SPREG INTERNAL CONTROL Positive; Serum Qual hCG Negative
[2025-01-30 21:41] VITALS: BP 145/73; PULSE 83; RESP 12; O2SAT 100
[2025-01-30 21:42] VITALS: PULSE 85
--- NOTE | 2025-01-30 21:52 | ED.ARRPALP ---
HPI - Arrhythmia/Palpitations General Chief Complaint: Arrhythmia/Palpitations Stated Complaint: high heart rate Time Seen by Provider: 01/30/25 21:25 History of Present Illness HPI narrative: Patient is a 64-year-old female who presents to the emergency department this evening complaining of a multiple episodes of SVTs. Patient states that she does have a history of a neuroendocrine tumor and SVTs and has been following up with a elevator operator freight and oncologist. Patient states that she does go into SVT from time to time but can usually get herself out of it performing Valsalva at home. Patient states that today she had 3 episodes and she was able to get out of all 3 of them using Valsalva but her oncologist did prompted to come to the emergency department for blood work to check her electrolyte even though she was no longer in SVT. Patient states that she feels fine now and denies any symptoms. Patient did have an echocardiogram performed at [place] this morning which was normal showing an ejection fraction of 65%. She is currently denying any chest pain. No additional symptoms or concerns at this time. Related Data Home Medications ?Medication ?Instructions ?Recorded ?Confirmed ?Last Taken ?Type ondansetron 4 mg disintegrating 4 mg PO Q6-8H PRN nausea and 01/18/25 01/29/25 Unknown History tablet vomiting sumatriptan succinate 25 mg tablet See Rx Instructions PO .COMPLEX 01/18/25 01/29/25 Unknown History (Imitrex) PRN migraine headache octreotide acetate 100 mcg/mL (1 mcg IV 01/29/25 01/29/25 Unknown History mL) injection syringe Allergies Allergy/AdvReac Type Severity Reaction Status Date / Time No Known Allergies Allergy Unknown Verified 01/30/25 20:26 Review of Systems Review of Systems: All systems are reviewed and are negative unless stated otherwise in the HPI. 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 She lives alone. She denies any history of heavy alcohol use. She used to smoke 1 pack of cigarettes per day for about 10-15 years but quit smoking in 1991. She denies illicit substance use. 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 She raised 3 sons. Code status: Full code Surrogate decision maker: Jeffery (oldest son) Smoking packs per day: 1 Smoking cigarettes per day: 20.0 Years smoked: 15 Smoking pack-years: 15.00 Smoking status: Former smoker Tobacco type: cigarettes Smoking end date: 06/06/90 Alcohol intake: never Substance use: never Substance use type: does not use Lack of Transportation: No Lack of Food: Never True Current Housing: I Have Housing Concerned About Future Housing: No Difficulty Paying Gas/Electric Bills: No Difficulty Paying for Meds: No Currently Unemployed: No Education: High School Diploma/GED Difficulty w/ Childcare or Family Care: No Living arrangements: with family Gender identity (if verbalized by the patient): Female Spiritual care concerns: No Exam Narrative: General: Alert, awake, afebrile, in no acute distress. HEENT: PERRL, no rhinorrhea, no post nasal drip, oropharynx clear. Neck: Trachea midline, no JVD, no lymphadenopathy. Cardiovascular: Regular rate and rhythm, no murmurs, rubs or gallops, no peripheral edema. Respiratory: Clear to auscultation bilaterally, no tachypnea, no wheezing, no rhonchi, no rubs, no respiratory distress. Abdomen: Soft, nontender, nondistended, no rebound, no guarding, no peritoneal signs. Musculoskeletal: No joint swelling or deformity, normal muscle tone. Skin: No rashes or petechia, no signs of infection. Psychiatric: Alert and oriented, normal behavior and judgment for situation. Neurological: Alert and oriented to person, place, and time. Follows all commands. No focal deficits, speech is clear and fluent. Course Vital Signs Vital signs: Vital Signs Temperature 97.7 F 01/30/25 20:19 Pulse Rate 96 01/30/25 20:19 Respiratory Rate 16 01/30/25 20:19 Blood Pressure 148/87 H 01/30/25 20:19 Pulse Oximetry 100 01/30/25 20:19 Oxygen Delivery Room Air 01/30/25 20:19 Temperature 97.7 F 01/30/25 20:19 Pulse Rate 85 01/30/25 21:42 Respiratory Rate 12 01/30/25 21:41 Blood Pressure 145/73 H 01/30/25 21:41 Pulse Oximetry 100 01/30/25 21:41 Oxygen Delivery Room Air 01/30/25 20:19 MDM - Arrhythmia/Palpitations MDM Narrative Medical decision making narrative: The patient was evaluated by myself in the emergency department. History is obtained from patient who is an independent historian and physical exam was performed. External medical records were reviewed at this time. IV was established and pertinent tests were ordered. EKG was obtained which revealed sinus rhythm rate of 86 beats per minute, no evidence of arrhythmia or acute ischemia. EKG was independently interpreted by me and is currently pending official cardiology read. Laboratory results obtained revealing a potassium level of 3.3 otherwise unremarkable. Patient does have some elevations to her liver enzymes but this is chronic. Patient was administered 40 mEq of oral potassium at this time. Differential diagnosis considerations include dehydration, electrolyte derangements, acute viral syndrome, supraventricular tachycardia, arrhythmia. Comorbidities impacting this visit include history of neuroendocrine tumor status post resection and SVT. I have evaluated and discussed social determinants of health with the patient that could potentially impact subsequent diagnosis and treatment plans. On repeat assessment of the patient, reevaluation revealed that the patient is doing well and is in no acute distress. Patient symptoms have improved since she arrived to our emergency department. Repeat vital signs were all reviewed and noted to be stable. Differential diagnosis and treatment plan were discussed with the patient at bedside. Patient agrees with discussion and after shared medical decision making agrees with discharge. All questions were answered to the patient's satisfaction. Patient will follow up with her elevator operator freight in 3-5 days. Patient was provided with strict return precautions and instructed to return to the emergency department if any new or worsening symptoms develop. The patient was discharged in stable condition. Lab Data 01/30/25 20:42 01/30/25 20:42 Labs: Lab Results 01/30/25 Range/Units 20:42 WBC 10.9 H (4.5-10.0) K/mm3 RBC 4.12 L (4.2-5.4) M/mm3 Hgb 11.4 L (12.0-15.0) g/dL Hct 35.3 L (37.0-47.0) % MCV 85.7 (80-100) fl MCH 27.7 (26-34) pg MCHC 32.3 (32-36) g/dl RDW 15.1 H (11.5-14.5) % Plt Count 325 (150-375) k/mm3 MPV 11.0 H (7.4-10.4) fl Immature Gran % (Auto) 0.3 (0-0.5) % Neut % (Auto) 68.4 (45.5-73.1) % Lymph % (Auto) 18.8 (18.3-44.2) % Josephine % (Auto) 9.8 H (2.6-8.5) % Eos % (Auto) 2.0 (0-4.4) % Baso % (Auto) 0.7 (0.2-1.2) % Lymph # (Auto) 2.04 (0.9-3.2) K/mm3 Josephine # (Auto) 1.1 H (0.1-0.6) K/mm3 Eos # (Auto) 0.2 (0-0.3) K/mm3 Baso # (Auto) 0.1 (0.0-0.1) K/mm3 Abs Immat Gran (auto) 0.03 (0.00-0.031) K/mm3 Absolute Neuts (auto) 7.4 H (1.3-6.7) K/mm3 Absolute Nucleated RBC 0.000 (0.0-0.012) K/mm3 Nucleated RBC % 0.0 (0.0-0.2) % Sodium 139 (137-145) mmol/L Potassium 3.3 L (3.4-5.0) mmol/L Chloride 108 H (98-107) mmol/L Carbon Dioxide 20 L (22-30) mmol/L Anion Gap 11 (4-12) mmol/L BUN 14 D (7-17) mg/dL Creatinine 0.38 L (0.7-1.0) mg/dL Estim Creat Clear Calc 105 ml/min Estimated GFR > 60 (59 - ) Glucose 117 H (65-110) mg/dL Calcium 9.5 (8.4-10.2) mg/dL Magnesium 1.8 (1.6-2.3) mg/dL Total Bilirubin 0.5 (0.2-1.3) mg/dL AST 113 H (14-36) U/L ALT 151 H (6-35) U/L Alkaline Phosphatase 160 H (38-126) U/L Total Protein 7.1 (6.3-8.2) g/dL Albumin 3.8 (3.5-5.1) g/dL Serum HCG, Qual Negative Discharge Plan Discharge Clinical Impression: Palpitations, SVT (supraventricular tachycardia) Patient Disposition: Home Condition: Improved Instructions: Antibiotic Form, Supraventricular Tachycardia (ED) Additional Instructions: Please follow-up with your elevator operator freight within the next 3-5 days. Return to emergency department if any new or worsening symptoms develop. Patient Language: [place] Prescriptions: No Action octreotide acetate 100 mcg/mL (1 mL) syringe IV ondansetron 4 mg tablet,disintegrating 4 mg PO Q6-8H PRN (Reason: nausea and vomiting) sumatriptan succinate [Imitrex] 25 mg tablet See Rx Instructions PO .COMPLEX PRN (Reason: migraine headache) Rx Instructions: take 1 tab at onset of headache; if no relief may repeat 1 tab after at least 2 hrs; max = 4 tabs/24 hr orally PRN; magnesium oxide 400 mg (241.3 mg magnesium) Tablet 400 mg PO DAILY Qty: 30 0RF metoprolol succinate [Toprol XL] 25 mg Tablet Extended Release 24 Hr 25 mg PO Q12HR Qty: 90 0RF loratadine [Claritin] 10 mg tablet 10 mg PO DAILY Qty: 90 0RF fluticasone propionate 50 mcg/actuation spray,suspension 2 spray NASAL DAILY Qty: 15.8 2RF Rx Instructions: administer into each nostril Follow-up/Referrals: Shaina Lazaro, [employer] [Primary Care Provider, Internal Medicine] - 3 Days Time of Disposition: 21:53
[2025-01-30] MEDS: POTASSIUM CHLORIDE 20 MEQ PACKET (FOR LIQUID) 40 MEQ PO (22:23)
[2025-01-30 22:45] VITALS: BP 141/70; PULSE 82; RESP 15; O2SAT 96
[2025-01-30 23:05] VITALS: BP 141/70; PULSE 82; RESP 15; O2SAT 96
== END 2025-01-30 23:16 | disposition home or self-care (01) ==
PROVIDERS: Emergency Provider Emergency Medicine; PCP Clinical Nurse Specialist
DX: I47.10 Supraventricular tachycardia, unspecified (principal); R00.2 Palpitations; C7A.8 Other malignant neuroendocrine tumors; C7B.8 Other secondary neuroendocrine tumors; E78.5 Hyperlipidemia, unspecified; E78.1 Pure hyperglyceridemia; K21.9 Gastro-esophageal reflux disease without esophagitis; K44.9 Diaphragmatic hernia without obstruction or gangrene; Z87.440 Personal history of urinary (tract) infections; Z87.891 Personal history of nicotine dependence; Z90.49 Acquired absence of other specified parts of digestive tract; Z79.899 Other long term (current) drug therapy; R94.31 Abnormal electrocardiogram [ECG] [EKG]
CPT/HCPCS: 36415; 80053; 83735; 84703; 85025; 93005; 96360; 99284; A9270